=== PATIENT | male | born 1945 | race Caucasian/White ===

== ENCOUNTER 2016-09-10 12:27 | Inpatient (IN) | payer OTHER ==
[~2016-09-10] VITALS: Ht 167.6 cm; Wt 85.8 kg
[~2016-09-10 12:27] MED LIST: ALBUTEROL 3 ML3 ML IH; ALBUTEROL2.5 MG/3 M INH/SOL; CALCIUM ACETAT667 M2 PO; COMBIVENT RESPIM4 GM INH; CRESTOR 5MG5 MG PO; DALIRESP500 MC1 PO; EPOGEN4000 UNIT/ IV; GUAIFENESIN ER600 MG PO; IPRAT-ALBUT 0.5-3 ML INH; LABETALOL HCL200 M1 PO; LIDOCAINE-PRILO30 GM TOP; LOPRESSOR 25MG25 MG PO; MELATONIN3 M4 PO; METOPROLOL TART25 M1 PO; NEPHRO-VITE TA0.8 MG PO; OXYCODONE-ACET1 EAC1 PO; PANTOPRAZOLE SO40 MG PO; PREDNISONE10 M2 PO; PREDNISONE20 M1 PO; PREDNISONE5 M1 PO; PROAIR HFA8.5 GM INH; SPIRIVA18 MCG INH; SYMBICORT 16010.2 GM INH; TOPROL XL25 M1 PO; TUDORZA PRESS400 MCG; TUDORZA PRESS400 MCG INH; TYLENOL #31 TAB PO; VENTOLIN HFA18 GM INH
--- NOTE | 2016-09-10 12:38 | NUR ---
71 Y/O MALE C/O R SIDED CHEST PAIN, BILATERAL FLANK PAIN AND UPPER BACK PAIN SINCE SATURDAY. REPORTS SOB (BASELINE 2L, SAT 96%). PT REPORTS "NORMAL" APPETITE/PO INTAKE. HAD DIALYSIS THIS AM AND COMPLETED TREATMENT (DIALYSIS SHUNT TO L ARM, RESTRICTED BAND PLACED) EKG IN PROGRESS
--- NOTE | 2016-09-10 12:39 | NUR ---
PT STATES HE CALLED DR MALDONADO AND WAS TOLD TO COME TO ED
--- NOTE | 2016-09-10 13:05 | NUR ---
IV ACCESS ESTABLISHED, #20 RFA SST AND LAVENDAR TOP TUBES SENT TO LAB
[2016-09-10 13:11] LABS: ABSOLUTE BASOPHIL COUNT 0 /CUMM (0.0-0.2); ABSOLUTE EOSINOPHIL COUNT 0.2 /CUMM (0.0-0.7); ABSOLUTE GRANULOCYTE CT 6.5 /CUMM (1.4-6.5); ABSOLUTE LYMPH COUNT 0.7 /CUMM (1.2-3.4); ABSOLUTE MONOCYTE COUNT 0.6 /CUMM (0.10-0.60); BASOPHIL % 0.6 % (0.0-2.0); EOSINOPHIL % 2.2 % (0-5); GRANULOCYTE % 81.4 % (42.2-75.2); HEMATOCRIT 33.6 % (42-52); MEAN CORPUSCULAR HGB 29.4 PG (27.0-31.0); MEAN CORPUSCULAR HGB CONC 33.2 G/DL (33.0-37.0); MEAN CORPUSCULAR VOLUME 88.4 FL (80.0-94.0); MEAN PLATELET VOLUME 10.3 FL (7.4-10.4); PLATELET COUNT 133 /CUMM (130-400); RBC DISTRIBUTION WIDTH 14.8 % (11.5-14.5)
--- NOTE | 2016-09-10 13:12 | NUR ---
PT MEDICATED WITH MORPHINE 4MG IV
--- NOTE | 2016-09-10 13:22 | NUR ---
PT SITTING ON STRETCHER WITH FAMILY IN ATTENDANCE. PT REPORTS "PAIN IS BETTER" AFTER MORPHINE. PT REPORTS DIALYSIS THIS MORNING. PT HAS ACCESS IN LEFT UPPER ARM, POSITIVE FOR THRILL AND BRUITS. PT REPORTS HE IS ON O2 AT 2LPM VIA NC 24 HOURS/DAY.
--- NOTE | 2016-09-10 13:30 | ED CARDIAC/CP/PALPITATIONS ---
History of Present Illness General Chief Complaint: Chest Pain Stated Complaint: CHEST AND BACK PAIN, SOB Source: patient Exam Limitations: no limitations Allergies Coded Allergies: venom-honey bee (bee venom (honey bee)) (Severe, ANAPHYLAXIS 02/13/16) Penicillins (Intermediate, RASH 02/13/16) Reconcile Medications Albuterol Sulfate 2.5 MG/3 ML VIAL.NEB 1 Vial INH/ROSALINDA Q4P COPD (Reported) Albuterol Sulfate (Proair Hfa) 8.5 GM HFA.AER.AD 2 PUF INH PRN COPD (Reported ) Budesonide/Formoterol Fumarate (Symbicort 160-4.5 Mcg Inhaler) 10.2 GM HFA.AER.AD 2 PUF INH BID COPD Calcium Acetate (Phoslo) 667 MG CAPSULE 3 CAP PO WM KIDNEYS (Reported) Celecoxib (Celebrex) 100 MG CAPSULE 100 MG PO DAILY Anti Inflamatory Hydrocodone/Acetaminophen (Hydrocodon-Acetaminophen 5-325) 5 MG-325 MG TABLET 1 TAB PO DAILY PRN BACK PAIN Ipratropium/Albuterol Sulfate (Combivent Respimat Inhal [place]) 4 GM MIST.INHAL 1 PUFF INH 4 TIMES/DAY COPD (Reported) Lidocaine (Lidoderm) 5 % ADH..PATCH 1 PAT EXT 0600 Back Pain Metoprolol Succ XL (Toprol XL) 25 MG TAB 1.5 TAB PO DAILY atrial fibrillatoin Nephro-Vitamins (Nephro-Angie Tablet) 0.8 MG TABLET 1 TAB PO DAILY RENAL DX ( Reported) Pantoprazole Sodium 40 MG TABLET.DR 40 MG PO DAILY GERD (Reported) Roflumilast (Daliresp) 500 MCG TABLET 1 TAB PO DAILY COPD (Reported) Rosuvastatin Calcium (Crestor) 5 MG TABLET 5 MG PO DAILY HIGH CHOLESTROL ( Reported) Triage Note: 71 Y/O MALE C/O R SIDED CHEST PAIN, BILATERAL FLANK PAIN AND UPPER BACK PAIN SINCE SATURDAY. REPORTS SOB (BASELINE 2L, SAT 96%). PT REPORTS "NORMAL" APPETITE/PO INTAKE. HAD DIALYSIS THIS AM AND COMPLETED TREATMENT (DIALYSIS SHUNT TO L ARM, RESTRICTED BAND PLACED) EKG IN PROGRESS Triage Nurses Notes Reviewed? yes Onset: Abrupt Duration: day(s):, constant, continues in ED Timing: recent history Quality/Severity: moderate, severe Radiation: no radiation Activities at Onset: none HPI: 71-year-old male comes into emergency room with complaints of shortness of breath and chest pain. Pain is located all across his chest and into his back. Pain has been intermittent for the past 4-5 days. Sharp. Denies any fever chills cough. Denies any vomiting. Patient has extensive history of coronary disease. Nothing seems to make the symptoms better or worse. Denies any other associated symptoms. (SIS GIL) Vital Signs & Intake/Output Vital Signs & Intake/Output Vital Signs Date Time Temp Pulse Resp B/P Pulse O2 O2 Flow FiO2 Ox Delivery Rate 09/12 799 Nasal 2.0L Cannula 09/12 08 98.5 118 20 152/80 95 Nasal Cannula 09/12 0000 Nasal 2.0L Cannula 09/11 2356 98.0 91 20 130/66 95 Nasal Cannula 09/11 2113 126 09/11 1843 93 Room Air Room Air 09/11 1600 Nasal 2.0L Cannula 09/11 1559 98.1 126 20 160/100 97 Nasal 2.0L Cannula 09/11 1319 95 Nasal 2.0L Cannula 09/11 1311 Nasal 2.0L Cannula ED Intake and Output 09/12 0000 09/11 1200 Intake Total 1000 220 Output Total Balance 1000 220 Intake, IV 20 Intake, Oral 980 220 Past History Travel History Traveled to [place] past 21 day No Medical History Any Pertinent Medical History? see below for history Neurological: NONE EENT: NONE Cardiovascular: CAD, hypertension, stents, severe pulmonary hypertension Respiratory: asthma, COPD, 2L O2 DEPENDANT CPAP EACH NIGHT Gastrointestinal: NONE Hepatic: NONE, hepatic congestion, splenomegaly Renal: ESRD on HD, FISTULA ON L UPPER EXT Musculoskeletal: NONE Psychiatric: NONE Endocrine: NONE, diabetes Blood Disorders: myelodysplastic syndrome. Cancer(s): NONE TOY STUFFER/Reproductive: NONE History of MRSA: No History of VRE: No History of CDIFF: No Pneumonia Vaccine: 07/03/16 Influenza Vaccine: 07/03/16 Surgical History Surgical History: cholecystectomy, AV FISTULA LUE Psychosocial History Who do you live with Spouse Services at Home Oxygen What is your primary language Italian Tobacco Use: Quit >30 days ago Family History Family History, If Any: FATHER (CKD on HD, CAD, SC, DM). MOTHER (CKD on HD, CAD, SC, DM). FATHER (CKD on Hemodialysis, CAD, DM). MOTHER (CKD on Hemodialysis, CAD, SC). Hx Contributory? No (SIS GIL) Review of Systems Review of Systems Constitutional: Reports: no symptoms. EENTM: Reports: no symptoms. Respiratory: Reports: see HPI. Cardiovascular: Reports: see HPI. GI: Reports: no symptoms. Genitourinary: Reports: no symptoms. Musculoskeletal: Reports: no symptoms. Skin: Reports: no symptoms. Neurological/Psychological: Reports: no symptoms. Hematologic/Endocrine: Reports: no symptoms. Immunologic/Allergic: Reports: no symptoms. All Other Systems: Reviewed and Negative (SIS GIL) Physical Exam Physical Exam General Appearance: well developed/nourished, no apparent distress, alert Head: atraumatic, normal appearance Eyes: Bilateral: normal appearance, EOMI. Ears, Nose, Throat: normal pharynx, normal ENT inspection Neck: normal inspection Respiratory: normal breath sounds, no respiratory distress Cardiovascular: regular rate/rhythm, tachycardia Gastrointestinal: soft Back: normal inspection Extremities: normal inspection Neurologic/Psych: awake, alert, oriented x 3, normal gait Skin: intact, normal color Core Measures ACS in differential dx? No Severe Sepsis Present: No Septic Shock Present: No (SIS GIL) Progress Differential Diagnosis: AMI, aortic dissection, atrial fibrillation, cholecystitis, CHF/pulm edema, hyperkalemia, hypovolemia, hyperthyroid, hyperventilation, musculoskeletal pain, myocarditis, pancreatitis, pericarditis, pneumonia, pneumothorax, pulmonary embolism, PUD/GERD, PVCs/PACs, respiratory failure, rib fracture, sepsis, unstable angina, V-fib/V-Tach Diagnostic Imaging: Viewed by Me: Radiology Read. Discussed w/RAD: Radiology Read. Radiology Impression: SERVICE DATE: 09/10/16 EXAM TYPE: RAD - XRY- PORTABLE CHEST XRAY EXAMINATION: XR PORTABLE CHEST CLINICAL INFORMATION: Shortness of breath. COMPARISON: Chest x-ray 04/10/2016. TECHNIQUE: Portable view of the chest was obtained. FINDINGS: Symmetric lung inflation. No focal consolidation, pleural effusion, or pneumothorax. Cardiac silhouette size is normal. The aorta is again noted to be tortuous in its course. A left axillary vascular stent is redemonstrated. There are no acute osseous findings. IMPRESSION: No acute pulmonary process. Initial ED EKG: normal intervals, normal p-waves, normal sinus rhythm, rate (120 ), nonspecific ST T wave chg (SIS GIL) Plan of Care: Orders Procedure Date/time Status Hemo-Dialysis 09/12 0812 Active BASIC ELECTROLYTES PLUS BUN&CR 09/12 0600 Complete Anticipated Discharge 09/12 UNK Active Weight 09/11 2222 Active Vital Signs 09/11 175 Active Teach/Educate 09/11 1749 Active Nutritional Intake, Monitor 09/11 1749 Active Isolation 09/11 175 Active Intake & Output 09/11 175 Active Patient Care Conference 09/11 175 Active Activity/Ambulation 09/11 1749 Active RT: Evaluation 09/11 1311 Active WESTERGREN SED RATE 09/11 1203 Complete Change service to 09/11 09 Active Change service to 09/11 0843 Active AEROSOL CHG 09/11 UNK Complete OXYGEN 09/11 UNK Complete OXYGEN DAILY CHARGE 09/11 UNK Complete THERAPIST ORDERS 09/11 UNK Complete OXYGEN SETUP (GEN) 09/11 UNK Complete Admit to inpatient 09/11 UNK Active Lab Add-on Test 09/11 UNK Active MISSING MEDICATION FORM 09/11 UNK Active PHYSICIAN CONSULT 09/11 UNK Active OXYGEN SETUP CHG 09/10 UNK Complete OXYGEN 09/10 UNK Complete OXYGEN TRANSPORT 09/10 UNK Complete Current Medications Sig/Zoe Start time Last Medication Dose Stop Time Status Admin Ipratropium [place] 2.5 ML FOUR TIMES A DAY 09/11 1800 AC (Atrovent) Albuterol Sulfate 3 ML EVERY 4 HRS/AWAKE 09/11 1600 AC (Proventil) Roflumilast 500 MCG DAILY 09/11 1000 CAN (DALIRESP) Polyethylene Glycol 17 GM AT BEDTIME 09/10 2200 AC (Miralax) Albuterol Sulfate 2 PUF DAILY PRN 09/10 1900 AC (Ventolin) Acetaminophen 650 MG Q6P PRN 09/10 1745 AC (Tylenol) Diphenhydramine HCl 25 MG Q6P PRN 09/10 1745 AC (Benadryl) Prochlorperazine 10 MG Q6P PRN 09/10 1745 AC (Compazine) Laboratory Tests 09/12/16 0645: Anion Gap 19 H, Estimated GFR 7 L, BUN/Creatinine Ratio 9.1 09/11/16 1340: ESR Westergren 60 H Comments: 09/10/2016 4:46:36 PM patient's case discussed with Dr. Recio who recommends hospitalization given the patient's history of coronary artery disease and stent placement. I have updated Rafa on this and he is currently pain free. He has been treated with IV morphine for pain. If his pain should return the patient should be placed on heparin. (LIVAN MONTES,LUISA Freeman) Departure Departure Condition: Stable Referrals: SARITA MONTES,CYNDI Barron (PCP/Family) Departure Forms: Customer Survey General Discharge Information Prescriptions: Current Visit Scripts Celecoxib (Celebrex) 100 MG PO DAILY #10 Lidocaine (Lidoderm) 1 PAT EXT 0600 #5 Hydrocodone/Acetaminophen (Hydrocodon-Acetaminophen 5-325) 1 TAB PO DAILY PRN BACK PAIN #5 (SIS GIL) Departure Disposition: STILL A PATIENT Clinical Impression Primary Impression: Chest pain Qualifiers: Chest pain type: unspecified Qualified Code: R07.9 - Chest pain, unspecified Secondary Impressions: Chronic renal failure Qualifiers: Chronic kidney disease stage: stage 5 Qualified Code: N18.5 - Chronic kidney disease, stage 5 Observation Note Spoke With: LASHON MONTES,[facility] Physician Advisor Notified: MELA MONTES,LOS Barron Place Patient In: Non-ED OBS Care Area Rationale for Observation: My rational for observation is as follows patient has known history of coronary artery disease status post coronary stent as well as renal failure on dialysis. He is at high risk of acute coronary syndrome/SC. He is also at risk of ischemic associated cardiac dysrhythmias. I feel he now requires continuous cardiac monitoring and serial troponin determinations. Cardiology consultation should also be obtained for the possibility of cardiac catheterization and/or stress testing. Given this I do not feel he is a good candidate for outpatient management at this time. PA/OTR OWNER OPERATOR Co-Sign Statement Statement: ED Attending supervision documentation- [X] I saw and evaluated the patient. I have also reviewed all the pertinent lab results and diagnostic results. I agree with the findings and the plan of care as documented in the PA's/OTR OWNER OPERATOR's documentation. [] I have reviewed the ED Record and agree with the PA's/OTR OWNER OPERATOR's documentation. [] Additions or exceptions (if any) to the PAs/OTR OWNER OPERATOR's note and plan are summarized below: [] (LUISA LICONA MD) Critical Care Note Critical Care Note Critical Care Time: non-applicable (SIS GIL) Critical Care Note Critical Care Time: 30-74 min (LIVAN MONTES,LUISA Freeman)
--- NOTE | 2016-09-10 13:34 | RADIOLOGY REPORT ---
EXAMINATION: XR PORTABLE CHEST CLINICAL INFORMATION: Shortness of breath. COMPARISON: Chest x-ray 04/10/2016. TECHNIQUE: Portable view of the chest was obtained. FINDINGS: Symmetric lung inflation. No focal consolidation, pleural effusion, or pneumothorax. Cardiac silhouette size is normal. The aorta is again noted to be tortuous in its course. A left axillary vascular stent is redemonstrated. There are no acute osseous findings. IMPRESSION: No acute pulmonary process.
--- NOTE | 2016-09-10 14:58 | NUR ---
PT RESTING COMFORTABLY ON STRETCHER WITH FAMILY AT BEDSIDE.
--- NOTE | 2016-09-10 16:04 | NUR ---
PT MEDICATED WITH MORPHINE 4MG IV
--- NOTE | 2016-09-10 16:55 | NUR ---
ORDERED PT RENAL DIET TRAY
--- NOTE | 2016-09-10 17:29 | History & Physical ---
SHAWN MONTES,[facility] 09/10/16 6909: General Information and HPI MD Statement: I have seen and personally examined JAMES NELSON and documented this H&P. The patient is a 71 year old M who presented with a patient stated chief complaint of chest pain. . Source of Information: patient, family, old records Exam Limitations: no limitations History of Present Illness: 71 yo M with pmh of COPD, LLUVIA requiring home oxygen, CAD s/p stent placement, HTN, pul HTN, ESRD getting dialysis every Mon/Sat/Sat, presented to the emergency department on 09/10/2016 after experiencing a prolonged duration of chest pain. Patient states that that his pain originally began on 09/04/2016. Pain was initially located on the right-hand side of the patient's chest, under the patient's breast and radiated towards the right back. Over the course of the week this pain then progressed the left-hand side again under the breast and this time radiated the back and was diffusely present all over his back. Over the last few days the patient has continued to experience more intense pain. Approximately 2 days ago the patient had a drastic escalation in his pain on the left which was rated at a 9 out of 10 in severity. It was described as a dull and constant pain and this duration of intense pain lasted approximately 2 minutes. Patient states the pain in his chest and back radiates up to his head. The patient states that he has had to take Advil often increasing his dose for symptomatic relief. This morning the patient was scheduled for dialysis felt that perhaps his chest pain might be related to pending dialysis. He went to dialysis and after dialysis having not had resolution to his symptoms he decided to come to the emergency department. The patient denies any fever, chills, nausea, vomiting. He does however report orthopnea and palpitations as well as diaphoresis. The patient also reports dyspnea and dyspnea on exertion. The patient's buttonholer is Arvin Shields MD The patient's shoe ironer is Dr. Recio. The patient's executive office manager is Dr. Belle Allergies/Medications Allergies: Coded Allergies: venom-honey bee (bee venom (honey bee)) (Severe, ANAPHYLAXIS 02/13/16) Penicillins (Intermediate, RASH 02/13/16) Home Med list Albuterol Sulfate 2.5 MG/3 ML VIAL.NEB 1 Vial INH/ROSALINDA Q4P COPD (Reported) Albuterol Sulfate (Proair Hfa) 8.5 GM HFA.AER.AD 2 PUF INH PRN COPD (Reported ) Budesonide/Formoterol Fumarate (Symbicort 160-4.5 Mcg Inhaler) 10.2 GM HFA.AER.AD 2 PUF INH BID COPD Calcium Acetate (Phoslo) 667 MG CAPSULE 3 CAP PO WM KIDNEYS (Reported) Ipratropium/Albuterol Sulfate (Combivent Respimat Inhal [place]) 4 GM MIST.INHAL 1 PUFF INH 4 TIMES/DAY COPD (Reported) Metoprolol Succ XL (Toprol XL) 25 MG TAB 1.5 TAB PO DAILY atrial fibrillatoin Nephro-Vitamins (Nephro-Angie Tablet) 0.8 MG TABLET 1 TAB PO DAILY RENAL DX ( Reported) Pantoprazole Sodium 40 MG TABLET.DR 40 MG PO DAILY GERD (Reported) Roflumilast (Daliresp) 500 MCG TABLET 1 TAB PO DAILY COPD (Reported) Rosuvastatin Calcium (Crestor) 5 MG TABLET 5 MG PO DAILY HIGH CHOLESTROL ( Reported) Compliance With Home Meds: GOOD Past History Travel History Traveled to [place] past 21 day No Medical History Neurological: NONE EENT: NONE Cardiovascular: CAD, hypertension, stents, severe pulmonary hypertension Respiratory: asthma, COPD, 2L O2 DEPENDANT CPAP EACH NIGHT Gastrointestinal: NONE Hepatic: NONE, hepatic congestion, splenomegaly Renal: ESRD on HD, FISTULA ON L UPPER EXT Musculoskeletal: NONE Psychiatric: NONE Endocrine: NONE, diabetes Blood Disorders: myelodysplastic syndrome. Cancer(s): NONE BUSINESS MANAGEMENT MANAGER/Reproductive: NONE History of MRSA: No History of VRE: No History of CDIFF: No Pneumonia Vaccine: 07/03/16 Influenza Vaccine: 07/03/16 Surgical History Surgical History: cholecystectomy, AV FISTULA LUE Past Family/Social History Family History Relations & Conditions if any FATHER (CKD on HD, CAD, ME, DM). MOTHER (CKD on HD, CAD, ME, DM). FATHER (CKD on Hemodialysis, CAD, DM). MOTHER (CKD on Hemodialysis, CAD, ME). Psychosocial History Where do you live? Home Who Do You Live With? spouse Services at Home: Oxygen Primary Language: Thai Functional Ability ADLs Independent: eating, toileting. Needs Assist: bathing. Ambulation: independent Review of Systems Review of Systems Constitutional: Reports: diaphoresis, weakness. Denies: chills, fever, malaise. Cardiovascular: Reports: chest pain, orthopena, palpitations. Denies: edema, syncope. Respiratory: Reports: orthopnea, short of breath. Denies: cough, hemoptysis. GI: Denies: abdominal pain, bloating, constipation, diarrhea, distention, bowel incontinence. Genitourinary: Denies: discharge, dysuria, frequency, hematuria. Musculoskeletal: Reports: back pain. Skin: Denies: change in skin color, change in hair/nails, dryness. Exam & Diagnostic Data Last 24 Hrs of Vital Signs/I&O Vital Signs Date Time Temp Pulse Resp B/P Pulse O2 O2 Flow FiO2 Ox Delivery Rate 09/10 1702 97.0 112 16 145/84 98 Nasal 2.0L Cannula 09/10 1429 106 18 149/78 99 Nasal 2.0L Cannula 09/10 1326 96 Nasal 2.0L Cannula 09/10 1238 95.0 121 20 139/91 98 Nasal 2.0L Cannula Intake & Output 09/10 1600 09/10 0800 09/10 0000 Intake Total Output Total Balance Patient 87.09 kg Weight Physical Exam General Appearance Alert, Oriented X3, Cooperative Skin No Rashes, No Breakdown Cardiovascular Normal S1, Normal S2 Lungs Clear to Auscultation Abdomen Normal Bowel Sounds, Soft, No Tenderness, No Hepatospenomegaly Neurological Normal Speech, Strength at 5/5 X4 Ext, Sensation Intact, Cranial Nerves 3-12 NL Extremities No Cyanosis, No Edema, Normal Pulses, No Tenderness/Swelling Last 24 Hrs of Labs/Jesus: Laboratory Tests 09/10/16 1940: Troponin I 0.08 09/10/16 1300: Anion Gap 19 H, Estimated GFR 13 L, BUN/Creatinine Ratio 7.3, Glucose 105 H, Calcium 9.1, Total Bilirubin 0.6, AST 21, ALT 28, Alkaline Phosphatase 60, Troponin I 0.08, [id number] Pept 29659 H, Total Protein 6.9, Albumin 4.2 , Globulin 2.7, Albumin/Globulin Ratio 1.6, CBC w Diff NO MAN DIFF REQ, RBC 3.80 L, MCV 88.4, MCH 29.4, RDW 14.8 H, MPV 10.3, Gran % 81.4 H, Lymphocytes % 8.6 L, Monocytes % 7.2, Eosinophils % 2.2, Basophils % 0.6, Absolute Granulocytes 6.5, Absolute Lymphocytes 0.7 L, Absolute Monocytes 0.6, Absolute Eosinophils 0.2, Absolute Basophils 0, PUBS MCHC 33.2 Diagnostic Data CXR Results SERVICE DATE: 09/10/16 EXAM TYPE: RAD - XRY-PORTABLE CHEST XRAY EXAMINATION: XR PORTABLE CHEST CLINICAL INFORMATION: Shortness of breath. COMPARISON: Chest x-ray 04/10/2016. TECHNIQUE: Portable view of the chest was obtained. FINDINGS: Symmetric lung inflation. No focal consolidation, pleural effusion, or pneumothorax. Cardiac silhouette size is normal. The aorta is again noted to be tortuous in its course. A left axillary vascular stent is redemonstrated. There are no acute osseous findings. IMPRESSION: No acute pulmonary process. DICTATED BY: LUISA MUNIZ MD Assessment/Plan Assessment: This is a 71-year-old gentleman with past medical history of COPD and ESRD on hemodialysis 3 times a week who was admitted to [facility] for worsening chest pain. #Chest pain, rule out acute coronary syndrome versus musculoskeletal Admit patient to telemetry service Serial EKGs and troponins. Initial troponin 0.08. Cardiology consult in a.m. Consider echo cardiogram in a.m. Should patient become hemodynamically compromised consider ruling out aortic dissection. X-ray of ribs bilaterally rule out rib fracture. Patient denies any history of trauma. Other differentials may include pneumonia, costochondritis, herpes zoster (although no evidence of rash). Vicodin for severe pain. Lidocaine Patch for additional relief. PT consult in a.m. #Acute on chronic hypercarbic respiratory failure 2/2 COPD exacerbation. Patient does have history of COPD and is on home oxygen 2 L. Chest x-ray to rule out pneumonia IV Solu-Medrol and IV azithromycin for anti-inflammatory properties. Albuterol, Symbicort and ipratropium. Considered ABG in a.m. to rule out obstructive sleep apnea. Patient sees Dr. Belle as outpatient consider consultation in a.m. TRC nebulization treatments Incentive spirometer Sputum cultures LRC #End-stage renal disease Patient will need to continue Hemodialysis next Saturday consider nephrology consult in a.m. BEP in am. Monitor creatinine daily. Creatinine on admission is 4.5. Artificially low due to hemodialysis today. #Hypertension Continue Antihypertensives #Constipation Dulcolax and senna when necessary. Patient reports that opiates can periodically caused constipation. #Diet Renal dialysis #DVT prophylaxis Heparin #Code Full Code As Ranked By This Provider Problem List: 1. Chronic renal failure Qualifiers Chronic kidney disease stage: stage 5 Qualified Code: N18.5 - Chronic kidney disease, stage 5 2. COPD (chronic obstructive pulmonary disease) 3. COPD exacerbation 4. ESRD (end stage renal disease) 5. Abdominal pain 6. LLUVIA (obstructive sleep apnea) 7. Chest pain Qualifiers Chest pain type: unspecified Qualified Code: R07.9 - Chest pain, unspecified 8. chest wall dysfunction Core Measures/Miscellaneous Acute Coronary Syndrome ACS Diagnosis: No Cerebrovascular Accident CVA/TIA Diagnosis: No Congestive Heart Failure CHF Diagnosis: No Venous Thromboembolism VTE Risk Factors: Age > 40 VTE Prophylaxis Ordered Inpt: Pharm- Heparin No Mech VTE prophylaxis d/t: No contraindications No VTE Pharm Prophylaxis d/t: No contraindications VTE Diagnosis: No VTE Type: NONE VTE Confirmed by (Test): NONE Severe Sepsis Severe Sepsis Present: No Septic Shock Septic Shock Present: No Miscellaneous Documentation Attending Case Discussed With: MARTIN OATES MD Primary Care Physician: CYNDI STEIN MD Patient sees these Specialists Dr Recio Level of Patient Care: Telemetry MARTIN OATES MD 09/10/16 2210: Attending MD Review Statement Attending Statement Attending Statement: examined this patient, discuss w/resident/PA/ICE MAKER, agreed w/resident/PA/ICE MAKER, discussed with family, reviewed EMR data (avail) Attending Assessment/Plan: Pt seen/examind in ED. Case dw with the admitting residents. Pt is well known to me. In summary this is a 71 yo M with pmh of COPD, LLUVIA requiring home oxygen, CAD s/p stent placement, HTN, pul HTN, ESRD getting dialysis every Mon/Wed/Fri, presented to ED for chest for one week. Pain started as dull burnign pain below left nipple and then gradually moved to right side below the nipple. Pain radiated to back on right side. There is some pleuritic component to the pain. Pt had no fever, chills, n/v or Diarrhea. Has gained slight weigth. Has been compliant with his dialysis and there was not fall or trauma to chest. Exam shows stable VS. chest is clear, abd is soft NT. There is not chest tenderness. labs show mild anemia and elevated Cr and BNP. CXR is negative for edema or infiltrate. EKG is unchanged from prior. A/P: - likley musculoskeletal pain, r/o osteoarthritis of spine or compression fx - rule out ME , this is unlikley and his first Trop is negative - ESRD - CAD and sten - sleep apnea/copd on home O2 Plan - observe on tele, rule out protocol - check T spine and rib xrays - local ice pack, lidocaine, and voltaren gel massage - start Lyrica - tyelenol for mild pain, ultram for moderate and diladid for sever pain - consult nephrology for HD on Sat - Pulm consult Dr. Belle - Cardio consult Dr. Recio. pt likely can be discharged if he rules out and his pain is well controlled.
--- NOTE | 2016-09-10 17:32 | NUR ---
PT CALM AND COOPERATIVE, SITTING ON STRETCHER. PT'S MEAL HAS ARRIVED.
--- NOTE | 2016-09-10 19:17 | PN- Student ---
KATLIN SMITH 09/10/16 1852: Subjective Subjective: CC: "I have had chest + upper back pain since Saturday." HPI: Pt. experiences R. sided chest pain, with bilateral flank pain. The pain apparently also affects his upper back. The pt stated that it was intermittent ( R) chest pain that radiates to the (R) Upper Back and Flank. He was watching TV when it first occured. He states the pain worsens with movement. Pt also stated that he experienced similar chest pain and back pain on the (L) side yesterday. The pain disturbs his sleep and at times is sharp in character. 6-7-8/10 in intensity. Aspirin does not help the symptoms. This morning he had dialysis. The patient is feeling moderate relief at the time of exam because he stated he was given Morphine. PMHx: * CVS: CAD, HTN, Stents, Severe Pulmonary HTN. * Respiratory: Asthma, COPD on 2L O2 dep. CPAP used every night. 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 U. Arm. * Endocrine: Diabetes * Blood Disorder: MDS PSHx: * Cholestectomy; * AV. Fistula LUE; * L. Subclavian Vascular Stent; FHx: * Father: CKD on HD, CAD, PA, DM * Mother: CKD on HD, CAD, PA, DM SHx: * Cigs: 25 pk year history (stopped ~20 yrs ago) * EtOH: Special Occasion (homemade wine) * Illicits: Denies Use * Occupation: Retired - [employer] Medication: Current Medications Sig/Zoe Start time Last Medication Dose Stop Time Status Admin Acetaminophen 650 MG Q6P PRN 09/10 1745 AC (Tylenol) Acetaminophen/ 1 TAB Q6P PRN 09/10 1745 AC Hydrocodone Bitart (Vicodin) Albuterol Sulfate 2 PUF DAILY PRN 09/10 1900 UNVr (Ventolin) Atorvastatin Calcium 20 MG 1700 09/11 1700 UNVr (Lipitor) Budesonide/ 2 PUF BID 09/10 2200 UNVr Formoterol Fumarate (Symbicort) Calcium Acetate 2,001 MG WM 09/11 0800 UNVr (PhosLo) Diphenhydramine HCl 25 MG Q6P PRN 09/10 1745 AC (Benadryl) Docusate Sodium 100 MG BID 09/10 2199 AC (Colace) Heparin Sodium 5,000 UNIT Q8 09/10 2199 AC (Porcine) Metoprolol Succinate 37.5 MG DAILY 09/11 999 UNVr (Toprol XL) Morphine Sulfate 2 MG Q4P PRN 09/10 1744 AC (Morphine) Multivitamins 1 TAB DAILY 09/11 999 UNVr (Nephrocaps) Non-Formulary 0 SEE ADMIN CRITERIA 09/10 1899 UNVr Medication (NON FORMULARY) Non-Formulary 0 SEE ADMIN CRITERIA 09/10 184 UNVr Medication (NON FORMULARY) Omeprazole 40 MG DAILY AC 09/11 07 UNVr (Prilosec) Polyethylene Glycol 17 GM AT BEDTIME 09/10 2199 AC (Miralax) Prochlorperazine 10 MG Q6P PRN 09/10 1744 AC (Compazine) Allergies: * Penicillin * Bee-Venom ROS: * General: Intermittant Sweating (4-5x) (YES); Fever or chills (NO). Fatigue ( YES) * Eyes: Visual Changes (YES); Pain (N); Readness (N) * ENT: Headaches (YES); hoarseness (N); sore throat (N); epistaxis (N); sinus symptoms (N); hearing loss (N); tinnitus (N) * CVS: Chest Pain (YES); Edema (NO); PND (N); Orthopnea (YES); Palpitations (YES ); Claudication (YES) (burning pain) * Respiratory: Cough (NO); SOB (YES); Wheezing (YES); Hypersomnolence (YES) * GI: Abdominal Pain (NO); Stool changes (NO); Nausea/Vomiting (NO); Diarrhea ( NO); Heartburn (NO); Blood in Stool (NO) * : Dysuria (NO); Frequency (NO); Hematuria (N); Discharge (N); Menstrual Problems (NA); * MSK: Arthralgias (Y); Arthritis (N); Joint Swelling (N); Myalgias (Y); Backpain (YES) * Heme/Lymph: Bleeding (N); Burising (Y) (Left Upper Extremity); Clotting (N); Transfusions (N); Lymph Node Swelling (N); * Endo: Polyuria (N); Polydypsia (N); Polyphagia (N); Heat/Cold Intolerance (N); * Derm: Rash (N); Pruritis (N) * Neuro: Weakness (N); Seizures N(); Paresthesias (Y) (Hands); Tremor (N); Syncope (Y); * Psych: Anxiety (Y); Depression (N); Hallucinations (N); Claustrophobia (YES) * All/Imm: Hayfever (N); Bee Sting Allergy (YES - Anaphylaxis); Penicillin (YES - Rash) Objective Objective: Vital Signs Date Time Temp Pulse Resp B/P Pulse O2 O2 Flow FiO2 Ox Delivery Rate 09/10 1702 97.0 112 16 145/84 98 Nasal 2.0L Cannula 09/10 1429 106 18 149/78 99 Nasal 2.0L Cannula 09/10 1326 96 Nasal 2.0L Cannula 09/10 1238 95.0 121 20 139/91 98 Nasal 2.0L Cannula * Pulse Quality: * Weight: 87.09 kg * Height: 165.1 cm Physical Exam General Appearance: * Dress: (X) nl hygeine * Affect: (X) nl affect, not flat, blunted, or expansive * MSE: Oriented in Time, Person, Place Eyes General: (X) nl conjuctiva & lids Pupils: (X) equal, round, and reactive Fundus: () nl discs & vessels (not examined) Vision: (X) acuity & gross ferrer intact Abnormals: ENT: External: (X) no scars, lesions, masses. Otoscopic: () nl canals, typanic membranes (not examined) Hearing: (X) nl to finger rub Oropharynx: (X) nl teeth, tounge, palate, pharynx. Abnormals: Neck: External: (X) no tracheal deviation Palpation: (X) no masses or crepitus Thyroid: (X) no 'megaly or tenderness. Abnormals: GI: Palpation: (X) no massess or tenderness (X) no hep/splenomegaly Auscultation: (X) nl bowel sounds Percussion: () no shifting dullness (not performed) Anus/rectum : () no abnormalities or masses (not examined) () heme negative stool (not examined) Abnormals: Respiratory: Effort: () nl without retractions (see abnormals) Percussion: () no dullness or hyperresonance (not performed) Palpation: (X) no fremitus Auscultation: () CTAP w/o W, R, or R Abnormals: -Pt is on 2 L Nasal Cannula CV: Palpation: (X) PMI nondisplaced Auscultation: (X) no murmur, gallop, or rub Carotids: (X) nl intensity w/o bruit JVD: (X) no jugular distension Pulses: () 2+/= femoral & pedal pulses Edema: (X) no pedal edema Abnormals: +1 Pedal Pulses Neuro: Orientation: (X) A&O to person, place, time CN: (X) CN II-XII intact. Sensory: (X) nl sensation throughout Reflexes: () 2++ and symmetrical throughout. (not examined) Abnormals: Skin: () no rashes, lesions, ulcers (X) nl turgor Abnormals: - Bruising on (Right Upper Extremity) - Dry skin and pruritis on the lower back (bilaterally) Chest/Breast: (X) nl inspection & palpation Lymph Nodes: (X) no axillary, inguinal, cervical, or submandibular LAD. : (not examined) () nl external genitalia () nl vaginal tone, mucosa [if applicable] () no cervical motion tenderness [if applicable] () nl penis & scrotal contents [if applicable] () nl prostate size & texture [if applicable] Abnormals: Psych: (X) nl cognition () MMSE (X) nl mood and affect Abnormals: MSK: Inspection ROM Strength Tone (X if normal) Abnormals Upper Extremity Lower Extremity Gait: (X) nl gait and station Results Results: Laboratory Tests 09/12/16 1115: 09/12/16 0758: Anion Gap 20 H, Estimated GFR 6 L, BUN/Creatinine Ratio 8.9, Calcium 9.1, Phosphorus 8.0 H, Magnesium 1.9, Albumin 3.7, CBC w Diff NO MAN DIFF REQ, RBC 3.50 L, MCV 89.7, MCH 29.4, RDW 14.5, MPV 11.9 H, Gran % 77.2 H, Lymphocytes % 11.3 L, Monocytes % 7.9, Eosinophils % 3.2, Basophils % 0.4, Absolute Granulocytes 5.6, Absolute Lymphocytes 0.8 L, Absolute Monocytes 0.6, Absolute Eosinophils 0.2, Absolute Basophils 0, PUBS MCHC 32.8 L, Hep Bs Antigen NONREACTIVE, Hep Bs Antibody NONREACTIVE 09/12/16 0645: Anion Gap 19 H, Estimated GFR 7 L, BUN/Creatinine Ratio 9.1 09/11/16 1340: ESR Westergren 60 H 09/11/16 0643: Anion Gap 16, Estimated GFR 8 L, BUN/Creatinine Ratio 7.6, Magnesium 1.9 09/10/16 1940: Troponin I 0.08 09/10/16 1300: Anion Gap 19 H, Estimated GFR 13 L, BUN/Creatinine Ratio 7.3, Glucose 105 H, Calcium 9.1, Total Bilirubin 0.6, AST 21, ALT 28, Alkaline Phosphatase 60, Troponin I 0.08, Hri-X-Mrjqjfgjdhe Pept 38245 H, Total Protein 6.9, Albumin 4.2 , Globulin 2.7, Albumin/Globulin Ratio 1.6, CBC w Diff NO MAN DIFF REQ, RBC 3.80 L, MCV 88.4, MCH 29.4, RDW 14.8 H, MPV 10.3, Gran % 81.4 H, Lymphocytes % 8.6 L, Monocytes % 7.2, Eosinophils % 2.2, Basophils % 0.6, Absolute Granulocytes 6.5, Absolute Lymphocytes 0.7 L, Absolute Monocytes 0.6, Absolute Eosinophils 0.2, Absolute Basophils 0, PUBS MCHC 33.2 Assessment/Plan Assessment: Mr. Rodríguez is a 71 y/o male who arrived to the ED with (R) chest pain and bilateral flank pain. Reported sx include upper thoracic back pain and one episode of (L) chest pain. He also complains of pruritis on his lower pack which has exacerbated the past few days. Likely MSK Ribs/Chest Wall Syndrome (based on description of clinical sx and subjective data stated by the patient, negative troponins, and atypical presentation, however there appears to be no point tenderness) vs. rib fracture (r/o - rib xray) vs. Pericarditis (r/o based on negative friction rub, radiographic imaging of chest) vs. Myocardial Infarction (r/o - unlikely due to negative troponins) Problem List: * 1) MSK Chest Wall Syndromes * 2) Renal Disease * 3) Myocardial Infarction * 4) Sleep Apnea * 5) Coronary Artery Disease/Stents Plan: * Check XRay of the thoracolumbar spine and ribs. * Chest XRay * Echocardiogram * Redo EKG * Monitor Troponin levels; Check WBC, ESR, and serum CRP. * For pain: if mild - tylenol; moderate pain - diclofenac; severe pain - hydromorphone * Request Nephro consult * Request Pulm consult * Request Cardio consult BRUCE HUANG MD 09/13/16 1129: Attending MD Review Statement Attending Sign Off Attending Cosign Statement: I have: examined this patient, reviewed al EMR data, discussd w/resident/PA/ MULTICUT LINE OPERATOR, amended to note. Other Findings: Agree with plan of care as outlined.
--- NOTE | 2016-09-10 19:47 | NUR ---
SST SENT TO LAB
--- NOTE | 2016-09-10 20:13 | RADIOLOGY REPORT ---
EXAMINATION: XR RIBS, LEFT CLINICAL INFORMATION: Chest wall pain. COMPARISON: None TECHNIQUE: 3 views of the left ribs. FINDINGS: No displaced left rib fracture or focal bone lesion. Left lung clear. No left pleural effusion or pneumothorax on the left. Vascular stents over the left shoulder and left upper arm. IMPRESSION: No displaced left rib fracture.
--- NOTE | 2016-09-10 20:16 | RADIOLOGY REPORT ---
EXAMINATION: XR THORACOLUMBAR SPINE CLINICAL INFORMATION: Chest wall pain. COMPARISON: CT of the chest 06/11/2016 TECHNIQUE: AP. Lateral. FINDINGS: The vertebrae have normal height and alignment. No fracture bone or destruction. Mild degenerative lipping at the anterior endplates of the thoracic vertebrae. Compared to prior study no change. A biliary stent is partially visualized in the right upper quadrant of the abdomen. IMPRESSION: No acute abnormality. Mild degenerative change of the dorsal spine.
--- NOTE | 2016-09-10 21:17 | NUR ---
BED ASSIGNMENT [id number]
--- NOTE | 2016-09-10 21:39 | NUR ---
PT MEDICATED DIRECTED WITH 2 MG MORPHINE IV FOR 7/10 RIGHT LATERAL CHEST PAIN
--- NOTE | 2016-09-10 22:06 | NUR ---
PT ADMITTED TO ROOM # 179-2. ORAL REPORT GIVEN TO YVON MARTINES ALL V.S.S. PT READY FOR TRANSFER
[2016-09-10 23:07] VITALS: BP 144/76
--- NOTE | 2016-09-10 23:16 | RADIOLOGY REPORT ---
EXAMINATION: XR RIBS, RIGHT CLINICAL INFORMATION: Atypical chest wall pain. Evaluate for fracture. COMPARISON: Left rib radiographs and chest radiograph from earlier today. CT from 06/11/2016. TECHNIQUE: 3 views of the right ribs were obtained. Frontal view of the chest. FINDINGS: The lungs are well expanded. No dense consolidation, edema, or effusion. No pneumothorax. The cardiomediastinal silhouette is unchanged, with a calcified and tortuous aorta. Left subclavian vascular stent noted. Targeted right rib radiographs demonstrate no acute fracture or cortical disruption. Alignment is anatomic. IMPRESSION: No acute pulmonary findings. No suspicious right rib abnormality.
--- NOTE | 2016-09-11 01:10 | NUR ---
ARRIVED TO OFFER PT BIPAP FOR USE HERE, PT STATED "I'M FINE IT'S LATE NOW,I WON'T WEAR IT TONIGHT ANYMORE." PT DENIES ANY DYSNEA, PT STATES " I DON'T LIKE THE BIPAPS HERE, IF I STAY TOMORROW, I WILL ASK MY FAMILY TO BRING IN MINE" THIS RT AND BOBBI SANZ ALSO @ BEDSIDE, ENCOURAGED PT TO RECONSIDER, HE CONTINUES TO WISH TO REMIAN OFF BIPAP TONIGHT, WILL MONITOR STATUS OVERNIGHT.
--- NOTE | 2016-09-11 06:40 | PN- Housestaff ---
SHAWN MONTES,[facility] 09/11/16 0639: Subjective Follow-up For: Rule out ACS COPD ESRD Tele-Events Since Last Visit: Sinus Tachy PAC PVC 3 beat 90's to 108 Subjective: Mr Rodríguez was seen and examined this morning. Resting comfortably in bed. Patient states he did not sleep well. Patient states he continued to experience chest pain. Pain is located on the right side of the chest radiating to the back. Pain is rated a 7 out of 10 severity. Patient states that pain becomes worse when he puts weight on it. Patient denies any fever, chills, nausea, vomiting. Patient denies any nausea and or left arm numbness tingling or diaphoresis. Review of Systems Constitutional: Reports: see HPI. Denies: chills, diaphoresis, fever. Objective Last 24 Hrs of Vital Signs/I&O Vital Signs Date Time Temp Pulse Resp B/P Pulse O2 O2 Flow FiO2 Ox Delivery Rate 09/11 1600 Nasal 2.0L Cannula 09/11 1559 98.1 126 20 160/100 97 Nasal 2.0L Cannula 09/11 1319 95 Nasal 2.0L Cannula 09/11 1311 Nasal 2.0L Cannula 09/11 0800 Nasal 2.0L Cannula 09/11 0800 97.6 109 20 150/78 95 Nasal 1.5L Cannula 09/11 0100 100 140/72 09/11 0000 94 Nasal 2.0L Cannula 09/10 2307 97.5 113 18 144/76 96 Nasal 1.5L Cannula Intake & Output 09/11 1600 09/11 0800 09/11 0000 Intake Total 500 220 300 Output Total Balance 500 220 300 Intake, Oral 500 220 300 Patient 88.139 kg Weight Physical Exam General Appearance: Alert, Oriented X3, Cooperative Lymphatic: Axillary nl Cardiovascular: Regular Rate, Normal S1, Normal S2, No Murmurs Lungs: Clear to Auscultation Abdomen: Normal Bowel Sounds, Soft, No Tenderness Neurological: Normal Gait, Normal Speech Extremities: No Edema Current Medications: Current Medications Sig/Zoe Start time Last Medication Dose Route Stop Time Status Admin Acetaminophen 650 MG Q6P PRN 09/10 1745 AC PO Acetaminophen/ 1 TAB ONCE ONE 09/11 1600 DC 09/11 Hydrocodone Bitart PO 09/11 1601 1635 Acetaminophen/ 1 TAB Q6P PRN 09/10 1745 AC 09/11 Hydrocodone Bitart PO 1116 Albuterol Sulfate 3 ML EVERY 4 HRS/AWAKE 09/11 1600 AC INH Albuterol Sulfate 1 PUF FOUR TIMES A DAY 09/10 1900 CAN INH Albuterol Sulfate 2 PUF DAILY PRN 09/10 1900 AC INH Atorvastatin Calcium 20 MG 1700 09/11 1700 AC 09/11 PO 1635 Budesonide/ 2 PUF BID 09/10 2200 AC 09/11 Formoterol Fumarate INH 0926 Calcium Acetate 2,001 MG WM 09/11 0800 AC 09/11 PO 1635 Diphenhydramine HCl 25 MG Q6P PRN 09/10 1745 AC IV Docusate Sodium 100 MG BID 09/10 220 AC 09/11 PO 0929 Heparin Sodium 5,000 UNIT Q8 09/10 2199 AC 09/11 (Porcine) SC 1500 Ipratropium Cora 2.5 ML FOUR TIMES A DAY 09/11 1800 AC INH Ipratropium Cora 1 ML FOUR TIMES A DAY 09/11 1000 DC INH Lidocaine 1 PAT 0600 09/11 0600 AC 09/11 EXT 0702 Metoprolol Succinate 37.5 MG DAILY 09/11 1000 DC PO Metoprolol Succinate 37.5 MG 22009/11 0100 AC 09/11 PO 0100 Morphine Sulfate 0 .STK-MED ONE 09/10 2136 DC .ROUTE Morphine Sulfate 2 MG Q4P PRN 09/10 1745 AC 09/11 IV 0329 Multivitamins 1 TAB DAILY 09/11 1000 AC 09/11 PO 0927 Omeprazole 40 MG DAILY AC 09/11 0700 AC 09/11 PO 0701 Patient Medication 1 ED .STK-MED ONE 09/11 1358 DC Teaching ED 09/11 1359 Polyethylene Glycol 17 GM AT BEDTIME 09/10 220 AC PO Pregabalin 25 MG ONCE ONE 09/11 1130 DC PO 09/11 1131 Prochlorperazine 10 MG Q6P PRN 09/10 1745 AC IV Roflumilast 500 MCG DAILY 09/11 1000 CAN PO Roflumilast 500 MCG DAILY 09/11 1000 AC 09/11 PO 0928 Last 24 Hrs of Lab/Jesus Results Last 24 Hrs of Labs/Mics: Laboratory Tests 09/11/16 1340: ESR Westergren 60 H 09/11/16 0643: Anion Gap 16, Estimated GFR 8 L, BUN/Creatinine Ratio 7.6, Magnesium 1.9 09/10/16 1940: Troponin I 0.08 Orders Radiology Findings: SERVICE DATE: 09/11/16-1156 EXAM TYPE: CAT - CTA CHEST-AORTIC DISSECTION EXAMINATION: CT ANGIOGRAM CHEST CLINICAL INFORMATION: Chest, back pain, rule out aortic dissection. COMPARISON: Chest radiograph 09/10/2016. TECHNIQUE: Multiple axial images were obtained through the chest after the administration of 95 mL of intravenous Optiray 320. Images were reviewed on a dedicated 3-D workstation. FINDINGS: VASCULAR: There is no evidence of aortic dissection. The ascending thoracic aorta is mildly aneurysmal, measuring 4.1 x 4.1 cm at the level of the right pulmonary artery. There is severe calcified and noncalcified atherosclerotic plaque throughout the thoracic aorta, most severe in the descending thoracic aorta, where there are several areas of ulcerated plaque, for example see image 183/483, sagittal image 54/121 demonstrates the multifocal nature of these ulcerated plaques. The appearance is not significantly changed compared with the prior exam. There is a 3-vessel aortic arch. There is moderate atherosclerotic plaque at the origin of the great vessels with mild narrowing of the vessels at the origin. The visualized subclavian arteries, vertebral arteries, and carotid arteries are unremarkable. There is a partially visualized venous stent in the cephalic arch on the left. The pulmonary arteries and pulmonary veins are normal. There is mild narrowing at the takeoff of the celiac artery. NONVASCULAR: LUNGS: There are moderate to severe emphysematous changes throughout both lungs with prominent lower lobe bronchiectasis. There is subpleural cystic change in both lungs, most prominent along the mediastinal borders. There is a mosaic attenuation throughout the lungs, consistent with small airways disease. Scattered subcentimeter nodular opacities appear similar to prior; for example, in the right lower lobe there is a 6 mm nodular opacity (255/483), in the right upper lobe there is a subpleural 3 mm nodular opacity (107/483), and in the right lung apex there is a 3 mm nodular opacity (53/483). MEDIASTINUM: There are subcentimeter mediastinal lymph nodes. There are coronary artery calcifications. No pericardial effusion. PLEURA: There is no pleural effusion. No pleural mass or thickening. AXILLA: No lymphadenopathy. UPPER ABDOMEN: There is predominantly left-sided pneumobilia with a partially visualized common bile duct stent in place. OSSEOUS STRUCTURES: There are old healed anterior rib fractures bilaterally. No destructive bony lesions. IMPRESSION: 1. No evidence of aortic dissection. The ascending thoracic aorta is mildly aneurysmal measuring 4.1 x 4.1 cm not significantly changed. 2. Extensive calcified and noncalcified atherosclerotic plaque throughout the descending thoracic aorta with multiple areas of ulcerated plaque throughout the entire descending aorta, resulting in multiple small saccular aneurysms. The overall appearance is not significantly changed from prior. There is no evidence of aortic dissection or intramural hematoma. 3. Extensive emphysematous change with underlying bronchiectasis in the lung bases, right greater than left. 4.Pulmonary nodules measuring up to 6 mm in the right lower lobe are similar to prior. Continued imaging surveillance is recommended. 5. Similar pneumobilia with common bile duct stent partially imaged. Various management parameters for solitary pulmonary nodules are in the literature. According to the Fleischner Society, recommendations for pulmonary nodules are as follows: Nodule size < or = to 4 mm in LOW RISK PATIENTS: No follow up needed. Nodule size < or = to 4 mm in HIGH RISK PATIENTS: Follow up CT at 12 months; if unchanged, no further follow up. Nodule size > 4-6 mm in LOW RISK PATIENTS: Follow up CT at 12 months; if unchanged, no further follow up. Nodule size > 4-6 mm in HIGH RISK PATIENTS: Initial follow up CT at 6-12 months, then at 18-24 months if no change. Nodule size > 6-8 mm in LOW RISK PATIENTS: Initial follow up CT at 6-12 months, then at 18-24 months if no change. Nodule size > 6-8 mm in HIGH RISK PATIENTS: Initial follow up CT at 3-6 months, then 9-12 months and 24 months if no change. Nodule size > 8 mm in LOW RISK PATIENTS: Follow up CT at around 3, 9, and 24 months, dynamic contrast-enhanced CT, PET, and/or biopsy. Nodule size > 8 mm in HIGH RISK PATIENTS: Same as for low-risk patients. DICTATED BY: PAYAL MONTES,ANKUR Hawk Assessment/Plan Assessment: This is a 71-year-old gentleman with past medical history of COPD and ESRD on hemodialysis 3 times a week who was admitted to [facility] for worsening chest pain. #Chest pain, rule out acute coronary syndrome versus musculoskeletal versus thoracic aneurysm Admit patient to telemetry service Serial EKGs and troponins. Initial troponin 0.08. Consider echo cardiogram in a.m. Should patient become hemodynamically compromise consider ruling out aortic dissection. X-ray of ribs bilaterally rule out rib fracture. Patient denies any history of trauma. Other differentials may include pneumonia and costochondritis. CTA of chest ordered today to rule out aortic dissection. No evidence of aortic dissection. CT thoracic spine without IV contrast ordered for 09/12/2016. Continue Vicodin and Tylenol for pain medication. Avoid narcotics medication due to potential side effects and or dependence. ESR. Patient may need ERICKA as an outpatient. #Acute on chronic hypercarbic respiratory failure 2/2 COPD exacerbation. Patient does have history of COPD and is on home oxygen 2 L. Chest x-ray to rule out pneumonia IV Solu-Medrol and IV azithromycin for anti-inflammatory properties. Albuterol, Symbicort and ipratropium. Considered ABG in a.m. to rule out obstructive sleep apnea. TRC nebulization treatments Incentive spirometer Sputum cultures LRC Continue BiPAP. Patient was supposed to get machine from home. #End-stage renal disease Patient will need to continue Hemodialysis next Saturday consider nephrology consult in a.m. BEP in am. Monitor creatinine daily. Creatinine on admission 6.6. Patient scheduled for dialysis tomorrow. Calcium acetate 2001 MG with meals. #Hypertension Continue antihypertensives, blood pressure this a.m. 150/78 #Chronic back pain Continue Vicodin and Tylenol for pain medication. Avoid narcotics medication due to potential side effects and or dependence. Celebrex 100 mg daily. PT consult in a.m. #Constipation Dulcolax and senna when necessary. Patient reports that opiates can periodically caused constipation. #Diet Renal dialysis #DVT prophylaxis Heparin #Code full code Problem List: 1. COPD (chronic obstructive pulmonary disease) 2. Hypertension 3. ESRD (end stage renal disease) 4. Abdominal pain 5. Abdominal aneurysm 6. COPD exacerbation 7. chronic low back pain 8. Chest pain 9. Saccular aneurysm Pain Ratin Pain Location: Right-sided chest. Pain Goal: Remain pain free Pain Plan: Vicodin for moderate pain. Tylenol for mild pain. Avoid opiate medication all weaned to side effects and future dictation potential. Tomorrow's Labs & Rationales: BEP: monitor electrolytes and creatinine function. BRUCE HUANG MD 09/11/16 2135: Attending MD Review Statement Attending Statement Attending MD Statement: examined this patient, discuss w/resident/PA/GLOBAL SUPPLY CHAIN DIRECTOR, agreed w/resident/PA/GLOBAL SUPPLY CHAIN DIRECTOR, discussed with family, reviewed EMR data (avail), discussed with nursing, discussed with case mgmt, reviewed images, amended to note Attending Assessment/Plan: The patient was seen and discussed with house staff. Appreciate Pulmonary and Cardiology input. Still with significant back and right chest wall pain with negative X-rays. Will admit for pain control and evaluation of aneurysm. Will need dialysis tomorrow.
[2016-09-11 08:00] VITALS: BP 150/78
--- NOTE | 2016-09-11 11:13 | Cons- Nephrology ---
General Information and HPI Consulting Request Date of Consult: 09/11/16 Requested By: BRUCE HUANG MD Reason for Consult: ESRD & CP Source of Information: patient, old records Exam Limitations: no limitations History of Present Illness: 71 yr old WM w mult med problems including DM, HTN, severe ASCVDx w descending thoracic saccular aneurysms, obesity, severe chronic lung dx/COPD/bronchiectasis , & ESRD on HD. Admit yesterday post HD w several days of atypical R sided CP radiating to back, worse on movement & rib palpation. No trauma, fever, or productive cough. No change chronic GARCIA & no uremic sx. Allergies/Medications Allergies: Coded Allergies: venom-honey bee (bee venom (honey bee)) (Severe, ANAPHYLAXIS 02/13/16) Penicillins (Intermediate, RASH 02/13/16) Home Med List: Albuterol Sulfate 2.5 MG/3 ML VIAL.NEB 1 Vial INH/ROSALINDA Q4P COPD (Reported) Albuterol Sulfate (Proair Hfa) 8.5 GM HFA.AER.AD 2 PUF INH PRN COPD (Reported ) Budesonide/Formoterol Fumarate (Symbicort 160-4.5 Mcg Inhaler) 10.2 GM HFA.AER.AD 2 PUF INH BID COPD Calcium Acetate (Phoslo) 667 MG CAPSULE 3 CAP PO WM KIDNEYS (Reported) Ipratropium/Albuterol Sulfate (Combivent Respimat Inhal [place]) 4 GM MIST.INHAL 1 PUFF INH 4 TIMES/DAY COPD (Reported) Metoprolol Succ XL (Toprol XL) 25 MG TAB 1.5 TAB PO DAILY atrial fibrillatoin Nephro-Vitamins (Nephro-Angie Tablet) 0.8 MG TABLET 1 TAB PO DAILY RENAL DX ( Reported) Pantoprazole Sodium 40 MG TABLET.DR 40 MG PO DAILY GERD (Reported) Roflumilast (Daliresp) 500 MCG TABLET 1 TAB PO DAILY COPD (Reported) Rosuvastatin Calcium (Crestor) 5 MG TABLET 5 MG PO DAILY HIGH CHOLESTROL ( Reported) Current Medications: Current Medications Sig/Zoe Start time Last Medication Dose Route Stop Time Status Admin Acetaminophen 650 MG Q6P PRN 09/10 1745 AC PO Acetaminophen/ 1 TAB Q6P PRN 09/10 1745 AC Hydrocodone Bitart PO Albuterol Sulfate 1 PUF FOUR TIMES A DAY 09/10 1900 CAN INH Albuterol Sulfate 2 PUF DAILY PRN 09/10 1900 AC INH Atorvastatin Calcium 20 MG 1700 09/11 1700 AC PO Budesonide/ 2 PUF BID 09/10 2200 AC 09/11 Formoterol Fumarate INH 0926 Calcium Acetate 2,001 MG WM 09/11 0800 AC 09/11 PO 0928 Diphenhydramine HCl 25 MG Q6P PRN 09/10 1745 AC IV Docusate Sodium 100 MG BID 09/10 2200 AC 09/11 PO 0929 Heparin Sodium 5,000 UNIT Q8 09/10 2200 AC 09/11 (Porcine) SC 0701 Ipratropium Barry 1 ML FOUR TIMES A DAY 09/11 1000 AC INH Lidocaine 1 PAT 0600 09/11 0600 AC 09/11 EXT 0702 Metoprolol Succinate 37.5 MG DAILY 09/11 1000 DC PO Metoprolol Succinate 37.5 MG 22009/11 0100 AC 09/11 PO 0100 Morphine Sulfate 0 .STK-MED ONE 09/10 2136 DC .ROUTE Morphine Sulfate 2 MG Q4P PRN 09/10 1745 AC 09/11 IV 0329 Morphine Sulfate 0 .STK-MED ONE 09/10 1602 DC .ROUTE Morphine Sulfate 4 MG ONCE ONE 09/10 1600 DC 09/10 IV 09/10 1601 1604 Morphine Sulfate 0 .STK-MED ONE 09/10 1308 DC .ROUTE Morphine Sulfate 4 MG ONCE ONE 09/10 1300 DC 09/10 IV 09/10 1301 1312 Multivitamins 1 TAB DAILY 09/11 1000 AC 09/11 PO 0927 Omeprazole 40 MG DAILY AC 09/11 0700 AC 09/11 PO 0701 Polyethylene Glycol 17 GM AT BEDTIME 09/10 2200 AC PO Prochlorperazine 10 MG Q6P PRN 09/10 1745 AC IV Roflumilast 500 MCG DAILY 09/11 1000 CAN PO Roflumilast 500 MCG DAILY 09/11 1000 AC 09/11 PO 0928 Review of Systems Review of Systems Constitutional: Reports: no symptoms. EENTM: Reports: no symptoms. Cardiovascular: Denies: chest pain. Respiratory: Reports: short of breath. GI: Reports: no symptoms. Genitourinary: Reports: no symptoms. Musculoskeletal: Reports: see HPI. Skin: Reports: no symptoms. Neurological/Psychological: Reports: no symptoms. Hematologic/Endocrine: Reports: no symptoms. Immunologic/Allergic: Reports: no symptoms. All Other Systems: Reviewed and Negative Past History Travel History Traveled to [place] past 21 day No Medical History Blood Transfusion Hx: Yes Neurological: NONE EENT: NONE Cardiovascular: CAD, hypertension, stents, severe pulmonary hypertension Respiratory: asthma, COPD, 2L O2 DEPENDANT CPAP EACH NIGHT Gastrointestinal: NONE Hepatic: NONE, hepatic congestion, splenomegaly Renal: ESRD on HD, FISTULA ON L UPPER EXT Musculoskeletal: NONE Psychiatric: NONE Endocrine: NONE, diabetes Blood Disorders: myelodysplastic syndrome. Cancer(s): NONE RESOURCE COORDINATOR/Reproductive: NONE Surgical History Surgical History: cholecystectomy, AV FISTULA LUE Family History Relations & Conditions If Any: FATHER (CKD on HD, CAD, VA, DM). MOTHER (CKD on HD, CAD, VA, DM). FATHER (CKD on Hemodialysis, CAD, DM). MOTHER (CKD on Hemodialysis, CAD, VA). Psychosocial History Where Do You Live? Home Who Do You Live With? spouse Services at Home: Oxygen Primary Language: Macedonian Smoking Status: Former Smoker Functional Ability ADLs Independent: eating, toileting. Needs Assist: bathing. Ambulation: independent Exam & Diagnostic Data Vital Signs and I&O Vital Signs Date Time Temp Pulse Resp B/P Pulse O2 O2 Flow FiO2 Ox Delivery Rate 09/11 0800 Nasal 2.0L Cannula 09/11 0800 97.6 109 20 150/78 95 Nasal 1.5L Cannula 09/11 0100 100 140/72 09/11 0000 94 Nasal 2.0L Cannula 09/10 2307 97.5 113 18 144/76 96 Nasal 1.5L Cannula 09/10 1702 97.0 112 16 145/84 98 Nasal 2.0L Cannula 09/10 1429 106 18 149/78 99 Nasal 2.0L Cannula 09/10 1326 96 Nasal 2.0L Cannula 09/10 1238 95.0 121 20 139/91 98 Nasal 2.0L Cannula Intake & Output 09/11 1600 09/11 0400 09/10 1600 09/10 0400 09/09 1600 09/09 040 Intake Total 220 300 Output Total Balance 220 300 Intake, Oral 220 300 Patient 194 lb 192 lb Weight Physical Exam General Appearance: well developed/nourished, no apparent distress Head: atraumatic, normal appearance Eyes: Bilateral: normal appearance. Ears, Nose, Throat: normal ENT inspection Neck: normal inspection Respiratory: normal breath sounds, lungs clear, marked R sided rib & sternal tenderness on palpation Cardiovascular: regular rate/rhythm, friction rub (none) Gastrointestinal: soft, non-tender, no organomegaly Extremities: no edema, + bruit DHRUV AVF Neurologic/Psych: no motor/sensory deficits, awake, alert, oriented x 3, abnormal PRODUCT INSPECTION COORDINATOR II-XII Skin: intact, normal color, warm/dry Lymphatic: no anterior cervical ramakrishna Results Pertinent Lab Results: Laboratory Tests 09/11 09/10 09/10 0643 1940 1300 Chemistry Sodium (137 - 145 mmol/L) 137 141 Potassium (3.5 - 5.1 mmol/L) 5.3 H 4.9 Chloride (98 - 107 mmol/L) 90 L 92 L Carbon Dioxide (22 - 30 mmol/L) 31 H 30 Anion Gap (5 - 16) 16 19 H BUN (9 - 20 mg/dL) 50 H 33 H Creatinine (0.7 - 1.2 mg/dL) 6.6 *H 4.5 H Estimated GFR (>60 ml/min) 8 L 13 L BUN/Creatinine Ratio (7 - 25 %) 7.6 7.3 Glucose (65 - 99 mg/dL) 105 H Calcium (8.4 - 10.2 mg/dL) 9.1 Magnesium (1.6 - 2.3 mg/dL) 1.9 Total Bilirubin (0.2 - 1.3 mg/dL) 0.6 AST (17 - 59 U/L) 21 ALT (21 - 72 U/L) 28 Alkaline Phosphatase (< 127 U/L) 60 Troponin I (<0.11 ng/ml) 0.08 0.08 Dih-W-Ludqdrysuby Pept (<125 pg/mL) 09157 H Total Protein (6.3 - 8.2 g/dL) 6.9 Albumin (3.5 - 5.0 g/dL) 4.2 Globulin (1.9 - 4.2 gm/dL) 2.7 Albumin/Globulin Ratio (1.1 - 2.2 %) 1.6 Hematology CBC w Diff NO MAN DIFF REQ WBC (4.8 - 10.8 /CUMM) 8.0 RBC (4.70 - 6.10 /CUMM) 3.80 L Hgb (14.0 - 18.0 G/DL) 11.2 L Hct (42 - 52 %) 33.6 L MCV (80.0 - 94.0 FL) 88.4 MCH (27.0 - 31.0 PG) 29.4 RDW (11.5 - 14.5 %) 14.8 H Plt Count (130 - 400 /CUMM) 133 MPV (7.4 - 10.4 FL) 10.3 Gran % (42.2 - 75.2 %) 81.4 H Lymphocytes % (20.5 - 51.1 %) 8.6 L Monocytes % (1.7 - 9.3 %) 7.2 Eosinophils % (0 - 5 %) 2.2 Basophils % (0.0 - 2.0 %) 0.6 Absolute Granulocytes (1.4 - 6.5 /CUMM) 6.5 Absolute Lymphocytes (1.2 - 3.4 /CUMM) 0.7 L Absolute Monocytes (0.10 - 0.60 /CUMM) 0.6 Absolute Eosinophils (0.0 - 0.7 /CUMM) 0.2 Absolute Basophils (0.0 - 0.2 /CUMM) 0 PUBS MCHC (33.0 - 37.0 G/DL) 33.2 Imaging/Other Studies: CXR: Symmetric lung inflation. No focal consolidation, pleural effusion, or pneumothorax. Cardiac silhouette size is normal. The aorta is again noted to be tortuous in its course. A left axillary vascular stent is redemonstrated. There are no acute osseous findings. IMPRESSION: No acute pulmonary process. Spine: The vertebrae have normal height and alignment. No fracture bone or destruction. Mild degenerative lipping at the anterior endplates of the thoracic vertebrae. Compared to prior study no change. A biliary stent is partially visualized in the right upper quadrant of the abdomen. IMPRESSION: No acute abnormality. Mild degenerative change of the dorsal spine. Ribs: FINDINGS: No displaced left rib fracture or focal bone lesion. Left lung clear. No left pleural effusion or pneumothorax on the left. Vascular stents over the left shoulder and left upper arm. IMPRESSION: No displaced left rib fracture Targeted right rib radiographs demonstrate no acute fracture or cortical disruption. Alignment is anatomic. Assessment/Plan Assessment/Recommendations Assessment: 1. ESRD: due to DM & HTN; dialyzed yesterday & w/o HD need today 2. Chest/rib pain: prob musculoskeltal; no rub to suggest pericarditis & hx/PE not suggestive of dissection but no renal contraindication to ERICKA or CTA to exclude. Favor trial of NSAIDs. Recommendations: 1. HD tomorrow 2. Celebrex 100 mg qday 3. Ca acetate 2001 mg meals 4. Consider ERICKA or CTA if persists
--- NOTE | 2016-09-11 11:54 | Cons- Pulmonary ---
See Addendum General Information and HPI Consulting Request Date of Consult: 09/11/16 Requested By: Med team History of Present Illness: 71 yo M with pmh of COPD, LLUVIA requiring home oxygen, CAD s/p stent placement, HTN, pul HTN, ESRD getting dialysis every Mon/Wed/Fri, presented to the emergency department on 09/10/2016 after experiencing a prolonged duration of chest pain. Patient states that that his pain originally began on 09/04/2016. Pain was initially located on the right-hand side of the patient's chest, under the patient's breast and radiated towards the right back. Over the course of the week this pain then progressed the left-hand side again under the breast and this time radiated the back and was diffusely present all over his back. Over the last few days the patient has continued to experience more intense pain. Approximately 3days ago the patient had a drastic escalation in his pain on the left which was rated at a 9 out of 10 in severity. It was described as a dull and constant pain and this duration of intense pain lasted approximately 2 minutes. Patient states the pain in his chest and back radiates up to his head. The patient states that he has had to take Advil often increasing his dose for symptomatic relief. The patient denies any fever, chills, nausea, vomiting. He does however report orthopnea and palpitations as well as diaphoresis. The patient also reports dyspnea and dyspnea on exertion. Review of Systems Constitutional: Reports: diaphoresis, weakness. Denies: chills, fever, malaise. Cardiovascular: Reports: chest pain, orthopena, palpitations. Denies: edema, syncope. Respiratory: Reports: orthopnea, short of breath. Denies: cough, hemoptysis. GI: Denies: abdominal pain, bloating, constipation, diarrhea, distention, bowel incontinence. Genitourinary: Denies: discharge, dysuria, frequency, hematuria. Musculoskeletal: Reports: back pain. Skin: Denies: change in skin color, change in hair/nails, dryness. Allergies/Medications Allergies: Coded Allergies: venom-honey bee (bee venom (honey bee)) (Severe, ANAPHYLAXIS 02/13/16) Penicillins (Intermediate, RASH 02/13/16) Home Med List: Albuterol Sulfate 2.5 MG/3 ML VIAL.NEB 1 Vial INH/ROSALINDA Q4P COPD (Reported) Albuterol Sulfate (Proair Hfa) 8.5 GM HFA.AER.AD 2 PUF INH PRN COPD (Reported ) Budesonide/Formoterol Fumarate (Symbicort 160-4.5 Mcg Inhaler) 10.2 GM HFA.AER.AD 2 PUF INH BID COPD Calcium Acetate (Phoslo) 667 MG CAPSULE 3 CAP PO WM KIDNEYS (Reported) Ipratropium/Albuterol Sulfate (Combivent Respimat Inhal [place]) 4 GM MIST.INHAL 1 PUFF INH 4 TIMES/DAY COPD (Reported) Metoprolol Succ XL (Toprol XL) 25 MG TAB 1.5 TAB PO DAILY atrial fibrillatoin Nephro-Vitamins (Nephro-Angie Tablet) 0.8 MG TABLET 1 TAB PO DAILY RENAL DX ( Reported) Pantoprazole Sodium 40 MG TABLET.DR 40 MG PO DAILY GERD (Reported) Roflumilast (Daliresp) 500 MCG TABLET 1 TAB PO DAILY COPD (Reported) Rosuvastatin Calcium (Crestor) 5 MG TABLET 5 MG PO DAILY HIGH CHOLESTROL ( Reported) Review of Systems Review of Systems Constitutional: Reports: see HPI. Past History Travel History Traveled to [place] past 21 day No Medical History Blood Transfusion Hx: Yes Neurological: NONE EENT: NONE Cardiovascular: CAD, hypertension, stents, severe pulmonary hypertension Respiratory: asthma, COPD, 2L O2 DEPENDANT CPAP EACH NIGHT Gastrointestinal: NONE Hepatic: NONE, hepatic congestion, splenomegaly Renal: ESRD on HD, FISTULA ON L UPPER EXT Musculoskeletal: NONE Psychiatric: NONE Endocrine: NONE, diabetes Blood Disorders: myelodysplastic syndrome. 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 MOTHER (CKD on HD, CAD, MD, DM). FATHER (CKD on Hemodialysis, CAD, DM). MOTHER (CKD on Hemodialysis, CAD, MD). Psychosocial History Where Do You Live? Home Who Do You Live With? spouse Services at Home: Oxygen Primary Language: Serbian Smoking Status: Former Smoker Functional Ability ADLs Independent: eating, toileting. Needs Assist: bathing. Ambulation: independent Exam & Diagnostic Data Last 24 Hrs of Vital Signs/I&O Vital Signs Date Time Temp Pulse Resp B/P Pulse O2 O2 Flow FiO2 Ox Delivery Rate 09/11 08 Nasal 2.0L Cannula 09/11 08 97.6 109 20 150/78 95 Nasal 1.5L Cannula 09/11 0100 100 140/72 09/11 0000 94 Nasal 2.0L Cannula 09/10 2307 97.5 113 18 144/76 96 Nasal 1.5L Cannula 09/10 1702 97.0 112 16 145/84 98 Nasal 2.0L Cannula 09/10 1429 106 18 149/78 99 Nasal 2.0L Cannula 09/10 1326 96 Nasal 2.0L Cannula 09/10 1238 95.0 121 20 139/91 98 Nasal 2.0L Cannula Intake & Output 09/11 1600 09/11 0800 09/11 0000 Intake Total 220 300 Output Total Balance 220 300 Intake, Oral 220 300 Patient 194 lb Weight Last 48 Hrs of Labs/Jesus: Laboratory Tests 09/11/16 0643: Anion Gap 16, Estimated GFR 8 L, BUN/Creatinine Ratio 7.6, Magnesium 1.9 09/10/16 1940: Troponin I 0.08 09/10/16 1300: Anion Gap 19 H, Estimated GFR 13 L, BUN/Creatinine Ratio 7.3, Glucose 105 H, Calcium 9.1, Total Bilirubin 0.6, AST 21, ALT 28, Alkaline Phosphatase 60, Troponin I 0.08, [id number]-Swxmakubiuw Pept 18229 H, Total Protein 6.9, Albumin 4.2 , Globulin 2.7, Albumin/Globulin Ratio 1.6, CBC w Diff NO MAN DIFF REQ, RBC 3.80 L, MCV 88.4, MCH 29.4, RDW 14.8 H, MPV 10.3, Gran % 81.4 H, Lymphocytes % 8.6 L, Monocytes % 7.2, Eosinophils % 2.2, Basophils % 0.6, Absolute Granulocytes 6.5, Absolute Lymphocytes 0.7 L, Absolute Monocytes 0.6, Absolute Eosinophils 0.2, Absolute Basophils 0, PUBS MCHC 33.2 Assessment/Plan Impression/Plan: This is a gentleman with end-stage COPD on oxygen, recurrent exacerbation on prednisone, Bronchiectasis due to recurrent infections, dietary noncompliance, ESRD, mild bilateral bronchiectasis, morbid obesity with obstructive sleep apnea , hypertension, previous hyperkalemia, cor pulmonale, on CPAP at home, previous hepatic disease with splenomegaly, moderate to severe pulmonary hypertension, myelodysplastic process, now comes in with * Radicular pain with spine tenderness suggestive of radiculopathy * Sig copd with no evidence of exacerbation * Sig copd with Previous bronchiectasis. 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 but appears to not have any sig infection at this time * SIg thoracic aneurysm saccular in nature * On off chest pain with * Obstructive sleep apnea on CPAP compliant * Chronic steroid use * Morbid obesity with noncompliance * Previous history of biliary sepsis obstruction no no evidence suggestive of that with previous stent with pneumobilia REC CTA CHEst to rule out dissection and penetrating ulcer in the aorta etc and this might help us rule out pe aswell IF ok then would also need ct of the thoracic spine to eval for anyother path Check esr Ask cardio to see if not done as the pt may need paulino if possible Cont bipap Sugar control Dialysis COnt all the bronchodilators Consult Acknowledgment - Thank you for your consult request.
--- NOTE | 2016-09-11 13:21 | Cons- Cardiology ---
General Information and HPI Consulting Request Date of Consult: 09/11/16 Requested By: BRUCE HUANG MD Reason for Consult: chest pain History of Present Illness: The patient is a 71-year-old male who is followed by Dr. Recio with history of CAD status post stent, end-stage renal disease on hemodialysis, multiple saccular aneurysms of the descending thoracic aorta, pulmonary hypertension who presented with chest pain. The chest pain has been intermittent over the past few days. It is primarily located on the right side radiating to the back, however at times it moves to the left side. The severity ranges from 8-10 out of 10. It is intermittent, occurring multiple times per day with each episode lasting about an hour. No shortness of breath. No syncope. No lightheadedness or dizziness. No nausea or vomiting. No diaphoresis. The patient was taking Advil at home for symptomatic relief Allergies/Medications Allergies: Coded Allergies: venom-honey bee (bee venom (honey bee)) (Severe, ANAPHYLAXIS 02/13/16) Penicillins (Intermediate, RASH 02/13/16) Home Med List: Albuterol Sulfate 2.5 MG/3 ML VIAL.NEB 1 Vial INH/ROSALINDA Q4P COPD (Reported) Albuterol Sulfate (Proair Hfa) 8.5 GM HFA.AER.AD 2 PUF INH PRN COPD (Reported ) Budesonide/Formoterol Fumarate (Symbicort 160-4.5 Mcg Inhaler) 10.2 GM HFA.AER.AD 2 PUF INH BID COPD Calcium Acetate (Phoslo) 667 MG CAPSULE 3 CAP PO WM KIDNEYS (Reported) Ipratropium/Albuterol Sulfate (Combivent Respimat Inhal [place]) 4 GM MIST.INHAL 1 PUFF INH 4 TIMES/DAY COPD (Reported) Metoprolol Succ XL (Toprol XL) 25 MG TAB 1.5 TAB PO DAILY atrial fibrillatoin Nephro-Vitamins (Nephro-Angie Tablet) 0.8 MG TABLET 1 TAB PO DAILY RENAL DX ( Reported) Pantoprazole Sodium 40 MG TABLET.DR 40 MG PO DAILY GERD (Reported) Roflumilast (Daliresp) 500 MCG TABLET 1 TAB PO DAILY COPD (Reported) Rosuvastatin Calcium (Crestor) 5 MG TABLET 5 MG PO DAILY HIGH CHOLESTROL ( Reported) Current Medications: Current Medications Sig/Zoe Start time Last Medication Dose Route Stop Time Status Admin Acetaminophen 650 MG Q6P PRN 09/10 1745 AC PO Acetaminophen/ 1 TAB Q6P PRN 09/10 1745 AC 09/11 Hydrocodone Bitart PO 1116 Albuterol Sulfate 1 PUF FOUR TIMES A DAY 09/10 1900 CAN INH Albuterol Sulfate 2 PUF DAILY PRN 09/10 1900 AC INH Atorvastatin Calcium 20 MG 1700 09/11 1700 AC PO Budesonide/ 2 PUF BID 09/10 2200 AC 09/11 Formoterol Fumarate INH 0926 Calcium Acetate 2,001 MG WM 09/11 0800 AC 09/11 PO 0928 Diphenhydramine HCl 25 MG Q6P PRN 09/10 1745 AC IV Docusate Sodium 100 MG BID 09/10 2200 AC 09/11 PO 0929 Heparin Sodium 5,000 UNIT Q8 09/10 2200 AC 09/11 (Porcine) SC 0701 Ipratropium [place] 1 ML FOUR TIMES A DAY 09/11 1000 AC INH Lidocaine 1 PAT 0600 09/11 0600 AC 09/11 EXT 0702 Metoprolol Succinate 37.5 MG DAILY 09/11 1000 DC PO Metoprolol Succinate 37.5 MG 22009/11 0100 AC 09/11 PO 0100 Morphine Sulfate 0 .STK-MED ONE 09/10 2136 DC .ROUTE Morphine Sulfate 2 MG Q4P PRN 09/10 1745 AC 09/11 IV 0329 Morphine Sulfate 0 .STK-MED ONE 09/10 1602 DC .ROUTE Morphine Sulfate 4 MG ONCE ONE 09/10 1600 DC 09/10 IV 09/10 1601 1604 Multivitamins 1 TAB DAILY 09/11 1000 AC 09/11 PO 0927 Omeprazole 40 MG DAILY AC 09/11 0700 AC 09/11 PO 0701 Polyethylene Glycol 17 GM AT BEDTIME 09/10 2200 AC PO Pregabalin 25 MG ONCE ONE 09/11 1130 DC PO 09/11 1131 Prochlorperazine 10 MG Q6P PRN 09/10 1745 AC IV Roflumilast 500 MCG DAILY 09/11 1000 CAN PO Roflumilast 500 MCG DAILY 09/11 1000 AC 09/11 PO 0928 Review of Systems Review of Systems: No rash. No tremor. No melena. No cough. No hemoptysis. All other systems were reviewed, and were noted to be negative. Past History Travel History Traveled to [place] past 21 day No Medical History Blood Transfusion Hx: Yes Neurological: NONE EENT: NONE Cardiovascular: CAD, hypertension, stents, severe pulmonary hypertension Respiratory: asthma, COPD, 2L O2 DEPENDANT CPAP EACH NIGHT Gastrointestinal: NONE Hepatic: NONE, hepatic congestion, splenomegaly Renal: ESRD on HD, FISTULA ON L UPPER EXT Musculoskeletal: NONE Psychiatric: NONE Endocrine: NONE, diabetes Blood Disorders: myelodysplastic syndrome. Cancer(s): NONE [employer]/Reproductive: NONE Surgical History Surgical History: cholecystectomy, AV FISTULA LUE Family History Relations & Conditions If Any: FATHER (CKD on HD, CAD, NM, DM). MOTHER (CKD on HD, CAD, NM, DM). FATHER (CKD on Hemodialysis, CAD, DM). MOTHER (CKD on Hemodialysis, CAD, NM). Psychosocial History Where Do You Live? Home Who Do You Live With? spouse Services at Home: Oxygen Primary Language: Chinese Smoking Status: Former Smoker Functional Ability ADLs Independent: eating, toileting. Needs Assist: bathing. Ambulation: independent ECHO Results (as available) Report: CONCLUSIONS 1. This was a limited followup examination performed to reassess the LV systolic function and the size of the pericardial effusion. 2. Aortic sclerosis is present. 3 Mitral leaflet thickening is present. 4. A small circumferential pericardial effusion is present. The effusion is more prominent posteriorly on this examination. The effusion remains hemodynamically insignificant. 5. Left atrial dilatation is present. 6. The left ventricular chamber size is normal with an ejection fraction of greater than 55-60%. There are no visible resting wall motion abnormalities. 7. The right heart structures were not optimally assessed. 8. A complete doppler examination was not performed on this examination. Exam & Diagnostic Data Vital Signs and I&O Vital Signs Date Time Temp Pulse Resp B/P Pulse O2 O2 Flow FiO2 Ox Delivery Rate 09/11 08 Nasal 2.0L Cannula 09/11 08 97.6 109 20 150/78 95 Nasal 1.5L Cannula 09/11 0100 100 140/72 09/11 0000 94 Nasal 2.0L Cannula 09/10 2307 97.5 113 18 144/76 96 Nasal 1.5L Cannula 09/10 1702 97.0 112 16 145/84 98 Nasal 2.0L Cannula 09/10 1429 106 18 149/78 99 Nasal 2.0L Cannula 09/10 1326 96 Nasal 2.0L Cannula Intake & Output 09/11 0809/11 0000 09/10 1600 09/10 0809/10 0000 Intake Total 220 300 Output Total Balance 220 300 Intake, Oral 220 300 Patient 194 lb 192 lb Weight Physical Exam: Gen: The patient is in no acute distress HEENT: Normal nose, ears, and oropharynx. Pupils equal bilaterally. Conjunctiva normal. Neck: Supple with no JVD, no masses, and no thyromegaly Lungs: Clear to auscultation with normal respiratory effort Heart: RRR, S1, S2, 1/6 systolic murmur. No peripheral edema, 1+ pulses in the lower extremities bilaterally Abdomen: Soft, nontender, no masses. No hepatomegaly. No splenomegaly Extremities: No clubbing or cyanosis. Normal muscle strength in the upper and lower extremities Skin: Normal skin turgor with no skin ulcers or lesions noted. Neuro: Cranial nerves intact. Sensation intact Psych: Alert and oriented 3 with appropriate affect Labs/Jesus Results: Laboratory Tests 09/11 09/10 09/10 0643 1940 1300 Chemistry Sodium (137 - 145 mmol/L) 137 141 Potassium (3.5 - 5.1 mmol/L) 5.3 H 4.9 Chloride (98 - 107 mmol/L) 90 L 92 L Carbon Dioxide (22 - 30 mmol/L) 31 H 30 Anion Gap (5 - 16) 16 19 H BUN (9 - 20 mg/dL) 50 H 33 H Creatinine (0.7 - 1.2 mg/dL) 6.6 *H 4.5 H Estimated GFR (>60 ml/min) 8 L 13 L BUN/Creatinine Ratio (7 - 25 %) 7.6 7.3 Glucose (65 - 99 mg/dL) 105 H Calcium (8.4 - 10.2 mg/dL) 9.1 Magnesium (1.6 - 2.3 mg/dL) 1.9 Total Bilirubin (0.2 - 1.3 mg/dL) 0.6 AST (17 - 59 U/L) 21 ALT (21 - 72 U/L) 28 Alkaline Phosphatase (< 127 U/L) 60 Troponin I (<0.11 ng/ml) 0.08 0.08 [id number] Pept (<125 pg/mL) 02079 H Total Protein (6.3 - 8.2 g/dL) 6.9 Albumin (3.5 - 5.0 g/dL) 4.2 Globulin (1.9 - 4.2 gm/dL) 2.7 Albumin/Globulin Ratio (1.1 - 2.2 %) 1.6 Hematology CBC w Diff NO MAN DIFF REQ WBC (4.8 - 10.8 /CUMM) 8.0 RBC (4.70 - 6.10 /CUMM) 3.80 L Hgb (14.0 - 18.0 G/DL) 11.2 L Hct (42 - 52 %) 33.6 L MCV (80.0 - 94.0 FL) 88.4 MCH (27.0 - 31.0 PG) 29.4 RDW (11.5 - 14.5 %) 14.8 H Plt Count (130 - 400 /CUMM) 133 MPV (7.4 - 10.4 FL) 10.3 Gran % (42.2 - 75.2 %) 81.4 H Lymphocytes % (20.5 - 51.1 %) 8.6 L Monocytes % (1.7 - 9.3 %) 7.2 Eosinophils % (0 - 5 %) 2.2 Basophils % (0.0 - 2.0 %) 0.6 Absolute Granulocytes (1.4 - 6.5 /CUMM) 6.5 Absolute Lymphocytes (1.2 - 3.4 /CUMM) 0.7 L Absolute Monocytes (0.10 - 0.60 /CUMM) 0.6 Absolute Eosinophils (0.0 - 0.7 /CUMM) 0.2 Absolute Basophils (0.0 - 0.2 /CUMM) 0 PUBS MCHC (33.0 - 37.0 G/DL) 33.2 Diagnostic Data EKG Results EKG tracing is independently reviewed, and reveals sinus tachycardia at 116, left atrial abnormality, left axis deviation, poor R-wave progression CXR Results Chest x-ray: Negative Other Results ERICKA June 2016: 1. Aortic sclerosis is present with no valvular stenosis or insufficiency. 2. Mitral thickening is present with anular calcification and mild to moderate mitral insufficiency with left atrial enlargement. 3. There is no pericardial fluid detected. 4. The pulmonary venous anatomy is normal bilaterally with normal doppler profiles. 5. The left ventricualr chamber size is normal with an ejection fraction of 50-55%. Accurate wall motion assessment was not possible. 6. The right heart chambers are upper normal in size. Mild tricuspid insufficiency is present with minimal pulmonic insufficiency. THe RV systolic pressure could not be accurately assessed. 7. A PFO is present with a very small resting left to right shunt noted. Agitated saline injection was not performed. 8. Grade IV atheromatous plaque is present throughout the distal aortic arch and the visualized portions of the descending thoracic aorta. Spontaneous contrast is also noted. Areas of protruding atheroma and thrombus are present. Multiple areas of plaque ulceration are also noted. THere are no penetrating ulcers, dissection or intramural hematoma detected. Assessment/Plan Assessment/Plan Assessment: 1. CAD, status post coronary stent 2. COPD 3. Hypertension 4. End-stage renal disease 5. 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 Chest pain, ruled out for mitral infarction. Concerning for possible aortic dissection given the history of saccular aneurysms Recommendations: * Myocardial infarction has been ruled out with negative troponin 2 * I agree with CTA to rule out aortic dissection or penetrating ulcer. * If the CT is negative, then no further inpatient cardiac workup is needed. * Follow up with Dr. Recio within 1 week. Possible pharmacologic nuclear stress test as outpatient. Consult Acknowledgment - Thank you for your consult request.
--- NOTE | 2016-09-11 13:22 | Patient Discharge Instructions ---
Discharge Instructions General Discharge Information You were seen/treated for: Chest Pain Diabetes CKD Watch for these problems: Fever, nausea, vomiting, chills, weakness, increased generalized edema. Palpitations. Chest pain. Shortness of breath. If you have any adverse reactions from any of the medications prescribed please inform your primary care physician and you may be required to come back to the emergency department. Thank you for letting us be part of your care. Special Instructions: Please follow-up with your primary care physician on 09/14/2016. This is for a post hospital discharge follow-up. Please follow-up with the customs guard on 09/17/2016. We have provided you with a referral. Diet Recommended Diet: Heart Healthy, Renal Dialysis Activity Activity Self Limited: Yes (As Tolerated) Acute Coronary Syndrome Inclusion Criteria At DC or during hospital stay patient has or had the following: ACS DIAGNOSIS No Discharge Core Measures Meds if any: Prescribed or Continued at Discharge Meds if any: NOT Prescribed or Continued at Discharge Congestive Heart Failure Inclusion Criteria At DC or during hospital stay patient has or had the following: CHF DIAGNOSIS No Discharge Core Measures Meds if any: Prescribed or Continued at Discharge Meds if any: NOT Prescribed or Continued at Discharge Cerebrovascular accident Inclusion Criteria At DC or during hospital stay patient has or had the following: CVA/TIA Diagnosis No Discharge Core Measures Meds if any: Prescribed or Continued at Discharge Meds if any: NOT Prescribed or Continued at Discharge Venous thromboembolism Inclusion Criteria VTE Diagnosis No VTE Type NONE VTE Confirmed by (Test) NONE Discharge Core Measures - Per Current guidelines, there needs to be overlap - treatment for the first 5 days of Warfarin therapy. - If discharged on Warfarin prior to 5 days of - overlap therapy, the patient will need to be - assessed for post discharge needs including - *Post discharge parental anticoagulation - *Warfarin and/or parental anticoagulation education - *Follow up date to check INR post discharge At least 5 days overlap therapy as Inpatient No Meds if any: Prescribed or Continued at Discharge Note: Overlap Therapy is Warfarin and Anticoagulant Meds if any: NOT Prescribed or Continued at Discharge
--- NOTE | 2016-09-11 14:52 | CT SCAN REPORT ---
EXAMINATION: CT ANGIOGRAM CHEST CLINICAL INFORMATION: Chest, back pain, rule out aortic dissection. COMPARISON: Chest radiograph 09/10/2016. TECHNIQUE: Multiple axial images were obtained through the chest after the administration of 95 mL of intravenous Optiray 320. Images were reviewed on a dedicated 3-D workstation. FINDINGS: VASCULAR: There is no evidence of aortic dissection. The ascending thoracic aorta is mildly aneurysmal, measuring 4.1 x 4.1 cm at the level of the right pulmonary artery. There is severe calcified and noncalcified atherosclerotic plaque throughout the thoracic aorta, most severe in the descending thoracic aorta, where there are several areas of ulcerated plaque, for example see image 183/483, sagittal image 54/121 demonstrates the multifocal nature of these ulcerated plaques. The appearance is not significantly changed compared with the prior exam. There is a 3-vessel aortic arch. There is moderate atherosclerotic plaque at the origin of the great vessels with mild narrowing of the vessels at the origin. The visualized subclavian arteries, vertebral arteries, and carotid arteries are unremarkable. There is a partially visualized venous stent in the cephalic arch on the left. The pulmonary arteries and pulmonary veins are normal. There is mild narrowing at the takeoff of the celiac artery. NONVASCULAR: LUNGS: There are moderate to severe emphysematous changes throughout both lungs with prominent lower lobe bronchiectasis. There is subpleural cystic change in both lungs, most prominent along the mediastinal borders. There is a mosaic attenuation throughout the lungs, consistent with small airways disease. Scattered subcentimeter nodular opacities appear similar to prior; for example, in the right lower lobe there is a 6 mm nodular opacity (255/483), in the right upper lobe there is a subpleural 3 mm nodular opacity (107/483), and in the right lung apex there is a 3 mm nodular opacity (53/483). MEDIASTINUM: There are subcentimeter mediastinal lymph nodes. There are coronary artery calcifications. No pericardial effusion. PLEURA: There is no pleural effusion. No pleural mass or thickening. AXILLA: No lymphadenopathy. UPPER ABDOMEN: There is predominantly left-sided pneumobilia with a partially visualized common bile duct stent in place. OSSEOUS STRUCTURES: There are old healed anterior rib fractures bilaterally. No destructive bony lesions. IMPRESSION: 1. No evidence of aortic dissection. The ascending thoracic aorta is mildly aneurysmal measuring 4.1 x 4.1 cm not significantly changed. 2. Extensive calcified and noncalcified atherosclerotic plaque throughout the descending thoracic aorta with multiple areas of ulcerated plaque throughout the entire descending aorta, resulting in multiple small saccular aneurysms. The overall appearance is not significantly changed from prior. There is no evidence of aortic dissection or intramural hematoma. 3. Extensive emphysematous change with underlying bronchiectasis in the lung bases, right greater than left. 4.Pulmonary nodules measuring up to 6 mm in the right lower lobe are similar to prior. Continued imaging surveillance is recommended. 5. Similar pneumobilia with common bile duct stent partially imaged. Various management parameters for solitary pulmonary nodules are in the literature. According to the Fleischner Society, recommendations for pulmonary nodules are as follows: Nodule size < or = to 4 mm in LOW RISK PATIENTS: No follow up needed. Nodule size < or = to 4 mm in HIGH RISK PATIENTS: Follow up CT at 12 months; if unchanged, no further follow up. Nodule size > 4-6 mm in LOW RISK PATIENTS: Follow up CT at 12 months; if unchanged, no further follow up. Nodule size > 4-6 mm in HIGH RISK PATIENTS: Initial follow up CT at 6-12 months, then at 18-24 months if no change. Nodule size > 6-8 mm in LOW RISK PATIENTS: Initial follow up CT at 6-12 months, then at 18-24 months if no change. Nodule size > 6-8 mm in HIGH RISK PATIENTS: Initial follow up CT at 3-6 months, then 9-12 months and 24 months if no change. Nodule size > 8 mm in LOW RISK PATIENTS: Follow up CT at around 3, 9, and 24 months, dynamic contrast-enhanced CT, PET, and/or biopsy. Nodule size > 8 mm in HIGH RISK PATIENTS: Same as for low-risk patients.
[2016-09-11 15:59] VITALS: BP 160/100
--- NOTE | 2016-09-11 21:01 | CT SCAN REPORT ---
EXAMINATION: CT THORACIC SPINE WITHOUT CONTRAST CLINICAL INFORMATION: Assess for worsening vertebral compression fracture versus pathology. COMPARISON: X-ray of the thoracic spine 09/10/2016. CTA of the chest also obtained 09/11/2015. TECHNIQUE: A noncontrast axial CT scan of the thoracic spine was obtained. Coronal and sagittal reformatted images were generated at the acquisition workstation. DLP: 946.13 mGy-cm. FINDINGS: There is anatomic alignment of the vertebral bodies. There is multilevel narrowing of intervertebral disc height with vacuum disc changes at T6-T7 and T7-T8. There are also degenerative endplate contour changes at these levels. Vertebral body heights are maintained and there are no compression fractures. There are moderate anterior and right-sided osteophytes at T8-T9 and T9-T10. Bone mineralization appears mildly diffusely decreased. The thoracic aorta is tortuous and ectatic. The caliber is 3.7 cm at the level of T12. The ascending aorta is not included on the available images. The aorta has extensive atheromatous calcifications. There are emphysematous changes at the upper lungs bilaterally. There are subpleural blebs bilaterally in the lungs medially and bilaterally. There is a 5 mm nodule in the medial right lower lobe, demonstrated on the concurrent CTA chest. Linear opacities at the right greater than left bases are consistent with atelectasis. There are dilated thick-walled bronchi in the lower zones bilaterally, consistent with cylindrical bronchiectasis. Air is again noted within the intrahepatic ducts; a biliary stent is noted in position. The visualized retroperitoneal structures are unremarkable. There are multilevel facet arthropathic changes. No acute rib fractures are demonstrated. SPINAL LEVELS: T7-T8: There is a posterior disc protrusion with calcified annulus. There is mild distortion of the ventral thecal sac. There is no central stenosis. IMPRESSION: 1. There are no acute fractures or subluxations in the thoracic spine. 2. There is spondylosis with narrowing of intervertebral disc height, endplate degenerative contour changes at T6-T7 and T7-T8. 3. There are emphysematous and bronchiectatic changes in the lungs bilaterally. 4. The aorta is extensively calcified with increased caliber as described above. These findings were better evaluated on the postcontrast CT scan of the chest also obtained 09/11/2015.
[2016-09-11 23:56] VITALS: BP 130/66
[2016-09-12] MEDS ORDERED: LIDODERM1 EACH EXT (06:36)
[2016-09-12] MEDS ORDERED: CELEBREX100 M1 PO (06:36)
--- NOTE | 2016-09-12 06:37 | PN- Housestaff ---
SHAWN MONTES,[facility] 09/12/16 0636: Subjective Follow-up For: Rule out ACS COPD ESRD Tele-Events Since Last Visit: Sinus Rhythm Sinus Tachy 88-128 Few PAC Subjective: Mr Rodríguez was seen and examined this morning. Resting comfortably in bed. He denies any issues overnight. Patient does state however yesterday in the early evening after having supper he felt nauseous and have one episode of emesis. Patient denies any hematemesis and states that he vomited his dinner. He also felt mildly nauseous when he tried to have a coffee and maricruz crackers. Currently the paint does not complain of any nausea. Patient states that his chest pain has completely resolved. He is currently pain-free. Patient denies any fever, chills, nausea, vomiting. Patient currently scheduled to go for dialysis this morning. Review of Systems Constitutional: Reports: see HPI. Denies: chills, fever, malaise. Objective Last 24 Hrs of Vital Signs/I&O Vital Signs Date Time Temp Pulse Resp B/P Pulse O2 O2 Flow FiO2 Ox Delivery Rate 09/12 0000 Nasal 2.0L Cannula 09/11 2356 98.0 91 20 130/66 95 Nasal Cannula 09/11 2113 126 09/11 1843 93 Room Air Room Air 09/11 1600 Nasal 2.0L Cannula 09/11 1559 98.1 126 20 160/100 97 Nasal 2.0L Cannula 09/11 1319 95 Nasal 2.0L Cannula 09/11 1311 Nasal 2.0L Cannula 09/11 0800 Nasal 2.0L Cannula 09/11 0800 97.6 109 20 150/78 95 Nasal 1.5L Cannula Intake & Output 09/12 0800 09/12 0000 09/11 1600 Intake Total 140 500 500 Output Total Balance 140 500 500 Intake, IV 20 20 Intake, Oral 120 480 500 Patient 87.543 kg Weight Physical Exam General Appearance: Alert, Oriented X3, Cooperative Lymphatic: Cervical nl Cardiovascular: Normal S1, Normal S2 Lungs: Mild Expiratory Wheezing Abdomen: Normal Bowel Sounds, Soft, No Tenderness Neurological: Normal Speech, Strength at 5/5 X4 Ext Current Medications: Current Medications Sig/Zoe Start time Last Medication Dose Route Stop Time Status Admin Acetaminophen 650 MG Q6P PRN 09/10 1745 AC PO Acetaminophen/ 1 TAB ONCE ONE 09/11 1600 DC 09/11 Hydrocodone Bitart PO 09/11 1601 1635 Acetaminophen/ 1 TAB Q6P PRN 09/10 1745 AC 09/11 Hydrocodone Bitart PO 2115 Albuterol Sulfate 3 ML EVERY 4 HRS/AWAKE 09/11 1600 AC INH Albuterol Sulfate 1 PUF FOUR TIMES A DAY 09/10 1900 CAN INH Albuterol Sulfate 2 PUF DAILY PRN 09/10 1900 AC INH Atorvastatin Calcium 20 MG 1700 09/11 1700 AC 09/11 PO 1635 Budesonide/ 2 PUF BID 09/10 2200 AC 09/11 Formoterol Fumarate INH 2112 Calcium Acetate 2,001 MG WM 09/11 0800 AC 09/11 PO 1635 Celecoxib 100 MG DAILY 09/11 1745 AC 09/11 PO 2113 Diphenhydramine HCl 25 MG Q6P PRN 09/10 1745 AC IV Docusate Sodium 100 MG BID 09/10 2200 AC 09/11 PO 2113 Heparin Sodium 5,000 UNIT Q8 09/10 2200 AC 09/12 (Porcine) SC 0620 Hydromorphone HCl 2 MG .STK-MED ONE 09/11 1101 DC IM 09/11 1102 Ipratropium [place] 2.5 ML FOUR TIMES A DAY 09/11 1800 AC INH Ipratropium [place] 1 ML FOUR TIMES A DAY 09/11 1000 DC INH Lidocaine 1 PAT 0600 09/11 0600 AC 09/12 EXT 0621 Metoprolol Succinate 37.5 MG DAILY 09/11 1000 DC PO Metoprolol Succinate 37.5 MG 2200 09/11 0100 AC 09/11 PO 2113 Morphine Sulfate 2 MG Q4P PRN 09/10 1745 AC 09/11 IV 0329 Multivitamins 1 TAB DAILY 09/11 1000 AC 09/11 PO 0927 Omeprazole 40 MG DAILY AC 09/11 0700 AC 09/12 PO 0620 Patient Medication 1 ED .STK-MED ONE 09/11 1358 DC Teaching ED 09/11 1359 Polyethylene Glycol 17 GM AT BEDTIME 09/10 2200 AC PO Pregabalin 25 MG ONCE ONE 09/11 1130 DC PO 09/11 1131 Prochlorperazine 10 MG Q6P PRN 09/10 1745 AC IV Roflumilast 500 MCG DAILY 09/11 1000 CAN PO Roflumilast 500 MCG DAILY 09/11 1000 AC 09/11 PO 0928 Last 24 Hrs of Lab/Jesus Results Last 24 Hrs of Labs/Mics: Laboratory Tests 09/12/16 0645: Sodium Pending, Potassium Pending, Chloride Pending, Carbon Dioxide Pending, Anion Gap Pending, BUN Pending, Creatinine Pending, BUN/Creatinine Ratio Pending 09/11/16 1340: ESR Westergren 60 H Orders Radiology Findings: SERVICE DATE: 09/11/16- EXAM TYPE: CAT - CT THOR SPINE WO IV CONTRAST EXAMINATION: CT THORACIC SPINE WITHOUT CONTRAST CLINICAL INFORMATION: Assess for worsening vertebral compression fracture versus pathology. COMPARISON: X-ray of the thoracic spine 09/10/2016. CTA of the chest also obtained 09/11/2015. TECHNIQUE: A noncontrast axial CT scan of the thoracic spine was obtained. Coronal and sagittal reformatted images were generated at the acquisition workstation. DLP: 946.13 mGy-cm. FINDINGS: There is anatomic alignment of the vertebral bodies. There is multilevel narrowing of intervertebral disc height with vacuum disc changes at T6-T7 and T7-T8. There are also degenerative endplate contour changes at these levels. Vertebral body heights are maintained and there are no compression fractures. There are moderate anterior and right-sided osteophytes at T8-T9 and T9-T10. Bone mineralization appears mildly diffusely decreased. The thoracic aorta is tortuous and ectatic. The caliber is 3.7 cm at the level of T12. The ascending aorta is not included on the available images. The aorta has extensive atheromatous calcifications. There are emphysematous changes at the upper lungs bilaterally. There are subpleural blebs bilaterally in the lungs medially and bilaterally. There is a 5 mm nodule in the medial right lower lobe, demonstrated on the concurrent CTA chest. Linear opacities at the right greater than left bases are consistent with atelectasis. There are dilated thick-walled bronchi in the lower zones bilaterally, consistent with cylindrical bronchiectasis. Air is again noted within the intrahepatic ducts; a biliary stent is noted in position. The visualized retroperitoneal structures are unremarkable. There are multilevel facet arthropathic changes. No acute rib fractures are demonstrated. SPINAL LEVELS: T7-T8: There is a posterior disc protrusion with calcified annulus. There is mild distortion of the ventral thecal sac. There is no central stenosis. IMPRESSION: 1. There are no acute fractures or subluxations in the thoracic spine. 2. There is spondylosis with narrowing of intervertebral disc height, endplate degenerative contour changes at T6-T7 and T7-T8. 3. There are emphysematous and bronchiectatic changes in the lungs bilaterally. 4. The aorta is extensively calcified with increased caliber as described above. These findings were better evaluated on the postcontrast CT scan of the chest also obtained 09/11/2015. DICTATED BY: KENDELL RAYMOND MD DATE/TIME DICTATED:09/11/162000 LACE BURN OUT TENDER:JANIE DATE/TIME TRANSCRIBED:09/11/162000 CONFIDENTIAL, DO NOT COPY WITHOUT APPROPRIATE AUTHORIZATION. <Electronically signed in Other Vendor System> SIGNED BY: KENDELL RAYMOND MD 09/11/16 0381 Assessment/Plan Assessment: This is a 71-year-old gentleman with past medical history of COPD and ESRD on hemodialysis 3 times a week who was admitted to [facility] for worsening chest pain. #Chest pain, rule out acute coronary syndrome versus musculoskeletal versus thoracic aneurysm Admit patient to telemetry service Serial EKGs and troponins. Initial troponin 0.08. Consider echo cardiogram in a.m. Should patient become hemodynamically compromise consider ruling out aortic dissection. X-ray of ribs bilaterally rule out rib fracture. Patient denies any history of trauma. Other differentials may include pneumonia and costochondritis. CTA of chest ordered today to rule out aortic dissection. No evidence of aortic dissection. CT thoracic spine without IV contrast. Continue Vicodin and Tylenol for pain medication. Avoid narcotics medication due to potential side effects and or dependence. ESR: 60 Patient may need ERICKA as an outpatient. #Acute on chronic hypercarbic respiratory failure 2/2 COPD exacerbation. Patient does have history of COPD and is on home oxygen 2 L. Chest x-ray to rule out pneumonia IV Solu-Medrol and IV azithromycin for anti-inflammatory properties. Albuterol, Symbicort and ipratropium. Considered ABG in a.m. to rule out obstructive sleep apnea. TRC nebulization treatments Incentive spirometer Sputum cultures LRC Continue BiPAP. Patient was supposed to get machine from home. #End-stage renal disease Patient will need to continue Hemodialysis next Saturday consider nephrology consult in a.m. BEP in am. Monitor creatinine daily. Creatinine on admission 6.6. Patient underwent dialysis today. Calcium acetate 2001 MG with meals. #Hypertension Continue antihypertensives, blood pressure this a.m. 152/80 #Chronic back pain Continue Vicodin and Tylenol for pain medication. Avoid narcotics medication due to potential side effects and or dependence. Lidocaine Patch Celebrex 100 mg daily. PT consult in a.m. #Constipation Dulcolax and senna when necessary. Patient reports that opiates can periodically caused constipation. #Diet Renal dialysis #DVT prophylaxis Heparin #Code full code Problem List: 1. Saccular aneurysm 2. Chronic renal failure 3. Atherosclerosis of aorta 4. Respiratory acidosis 5. COPD (chronic obstructive pulmonary disease) 6. ESRD (end stage renal disease) Pain Ratin Pain Location: Patient is pain free Pain Goal: Remain pain free Pain Plan: Vicodin and Tylenol PRN Tomorrow's Labs & Rationales: BRUCE TODD MD 09/12/16 2344: Attending MD Review Statement Attending Statement Attending MD Statement: examined this patient, discuss w/resident/PA/TICKET SALES SUPERVISOR, agreed w/resident/PA/TICKET SALES SUPERVISOR, reviewed EMR data (avail), discussed with nursing, discussed with case mgmt, reviewed images, amended to note Attending Assessment/Plan: The patient had been converted to an admission due to increased back and right rib pain requiring pain management. CT of thoracic spine was done. The patient was dialyzed. Pain now under better control. Discussed with resident and agree with plan of care.
[2016-09-12] MEDS ORDERED: HYDROCODON-ACE1 EAC2 PO (07:06)
[2016-09-12 08:00] VITALS: BP 152/80
--- NOTE | 2016-09-12 08:41 | PN- Nephrology ---
Assessment/Plan Assessment: 1. ESRD: HD in progress - UF 3 liters as BP allows 2. Hyperkalemia; correct w HD 3. CP/rib pain: prob musculosketal - no evidence for dissection; improving Suggestion: 1. continue Celebrex 2. next HD Sat --> can do as outpt ? discharge plan Subjective Subjective: Pain better this morning after starting celebrex last evening No SOB CTA no dissection Objective Vital Signs and I&Os Vital Signs Date Time Temp Pulse Resp B/P Pulse O2 O2 Flow FiO2 Ox Delivery Rate 09/12 799 Nasal 2.0L Cannula 09/12 08 98.5 118 20 152/80 95 Nasal Cannula 09/12 0000 Nasal 2.0L Cannula 09/11 2356 98.0 91 20 130/66 95 Nasal Cannula 09/11 2113 126 09/11 1843 93 Room Air Room Air 09/11 1600 Nasal 2.0L Cannula 09/11 1559 98.1 126 20 160/100 97 Nasal 2.0L Cannula 09/11 1319 95 Nasal 2.0L Cannula 09/11 1311 Nasal 2.0L Cannula Intake & Output 09/12 1600 09/12 0400 09/11 1600 09/11 0400 09/10 1600 09/10 0400 Intake Total 140 500 720 300 Output Total Balance 140 500 720 300 Intake, IV 20 20 Intake, Oral 120 480 720 300 Patient 193 lb 194 lb 192 lb Weight Physical Exam Head: atraumatic, normal appearance Ears, Nose, Throat: normal ENT inspection Neck: normal inspection Respiratory: lungs clear, tender R ant ribs to palpaption Cardiovascular: regular rate/rhythm, friction rub (none) Abdomen: soft, non-tender Extremities: no edema Current Medications: Current Medications Sig/Zoe Start time Last Medication Dose Route Stop Time Status Admin Acetaminophen 650 MG Q6P PRN 09/10 1745 AC PO Acetaminophen/ 1 TAB ONCE ONE 09/11 1600 DC 09/11 Hydrocodone Bitart PO 09/11 1601 1635 Acetaminophen/ 1 TAB Q6P PRN 09/10 1745 AC 09/11 Hydrocodone Bitart PO 2115 Albuterol Sulfate 3 ML EVERY 4 HRS/AWAKE 09/11 1600 AC INH Albuterol Sulfate 2 PUF DAILY PRN 09/10 1900 AC INH Atorvastatin Calcium 20 MG 1700 09/11 1700 AC 09/11 PO 1635 Budesonide/ 2 PUF BID 09/10 2199 AC 09/11 Formoterol Fumarate INH 2112 Calcium Acetate 2,001 MG WM 09/11 0800 AC 09/11 PO 1635 Celecoxib 100 MG DAILY 09/11 174 AC 09/11 PO 211 Diphenhydramine HCl 25 MG Q6P PRN 09/10 1745 AC IV Docusate Sodium 100 MG BID 09/10 2199 AC 09/11 PO 211 Epoetin Ryan 2,000 UNIT Saturday .. 09/12 829 AC IV Epoetin Ryan 3,000 UNIT Saturday .. 09/12 829 AC IV Heparin Sodium 5,000 UNIT Q8 09/10 2199 AC 09/12 (Porcine) SC 0620 Hydromorphone HCl 2 MG .STK-MED ONE 09/11 1101 DC IM 09/11 1102 Ipratropium [place] 2.5 ML FOUR TIMES A DAY 09/11 1800 AC INH Ipratropium [place] 1 ML FOUR TIMES A DAY 09/11 1000 DC INH Lidocaine 1 PAT 0600 09/11 0600 AC 09/12 EXT 0621 Metoprolol Succinate 37.5 MG DAILY 09/11 1000 DC PO Metoprolol Succinate 37.5 MG 09/11 0100 AC 09/11 PO 2113 Morphine Sulfate 2 MG Q4P PRN 09/10 1745 AC 09/11 IV 0329 Multivitamins 1 TAB DAILY 09/11 1000 AC 09/11 PO 0927 Omeprazole 40 MG DAILY AC 09/11 0700 AC 09/12 PO 0620 Patient Medication 1 ED .STK-MED ONE 09/11 1358 DC Teaching ED 09/11 1359 Polyethylene Glycol 17 GM AT BEDTIME 09/10 2199 AC PO Pregabalin 25 MG ONCE ONE 09/11 1130 DC PO 09/11 1131 Prochlorperazine 10 MG Q6P PRN 09/10 1745 AC IV Roflumilast 500 MCG DAILY 09/11 1000 CAN PO Roflumilast 500 MCG DAILY 09/11 1000 AC 09/11 PO 0928 Results Pertinent Lab Results: Laboratory Tests 09/12 09/12 09/11 09/11 09/10 0758 0645 1340 0643 1940 Chemistry Sodium (137 - 145 mmol/L) Pending 131 L 137 Potassium (3.5 - 5.1 mmol/L) Pending 6.1 *H 5.3 H Chloride (98 - 107 mmol/L) Pending 86 L 90 L Carbon Dioxide (22 - 30 mmol/L) Pending 25 31 H Anion Gap (5 - 16) Pending 19 H 16 BUN (9 - 20 mg/dL) Pending 74 H 50 H Creatinine (0.7 - 1.2 mg/dL) Pending 8.1 *H 6.6 *H Estimated GFR (>60 ml/min) 7 L 8 L BUN/Creatinine Ratio (7 - 25 %) Pending 9.1 7.6 Calcium Pending Phosphorus Pending Magnesium (1.6 - 2.3 mg/dL) Pending 1.9 Troponin I (<0.11 ng/ml) 0.08 Albumin Pending Hematology CBC w Diff Pending WBC Pending RBC Pending Hgb Pending Hct Pending MCV Pending MCH Pending RDW Pending Plt Count Pending MPV Pending PUBS MCHC Pending ESR Westergren (0 - 10 MM) 60 H Serology Hep Bs Antigen Pending Hep Bs Antibody Pending 09/10 1300 Chemistry Sodium (137 - 145 mmol/L) 141 Potassium (3.5 - 5.1 mmol/L) 4.9 Chloride (98 - 107 mmol/L) 92 L Carbon Dioxide (22 - 30 mmol/L) 30 Anion Gap (5 - 16) 19 H BUN (9 - 20 mg/dL) 33 H Creatinine (0.7 - 1.2 mg/dL) 4.5 H Estimated GFR (>60 ml/min) 13 L BUN/Creatinine Ratio (7 - 25 %) 7.3 Glucose (65 - 99 mg/dL) 105 H Calcium (8.4 - 10.2 mg/dL) 9.1 Total Bilirubin (0.2 - 1.3 mg/dL) 0.6 AST (17 - 59 U/L) 21 ALT (21 - 72 U/L) 28 Alkaline Phosphatase (< 127 U/L) 60 Troponin I (<0.11 ng/ml) 0.08 [id number] Pept (<125 pg/mL) 74686 H Total Protein (6.3 - 8.2 g/dL) 6.9 Albumin (3.5 - 5.0 g/dL) 4.2 Globulin (1.9 - 4.2 gm/dL) 2.7 Albumin/Globulin Ratio (1.1 - 2.2 %) 1.6 Hematology CBC w Diff NO MAN DIFF REQ WBC (4.8 - 10.8 /CUMM) 8.0 RBC (4.70 - 6.10 /CUMM) 3.80 L Hgb (14.0 - 18.0 G/DL) 11.2 L Hct (42 - 52 %) 33.6 L MCV (80.0 - 94.0 FL) 88.4 MCH (27.0 - 31.0 PG) 29.4 RDW (11.5 - 14.5 %) 14.8 H Plt Count (130 - 400 /CUMM) 133 MPV (7.4 - 10.4 FL) 10.3 Gran % (42.2 - 75.2 %) 81.4 H Lymphocytes % (20.5 - 51.1 %) 8.6 L Monocytes % (1.7 - 9.3 %) 7.2 Eosinophils % (0 - 5 %) 2.2 Basophils % (0.0 - 2.0 %) 0.6 Absolute Granulocytes (1.4 - 6.5 /CUMM) 6.5 Absolute Lymphocytes (1.2 - 3.4 /CUMM) 0.7 L Absolute Monocytes (0.10 - 0.60 /CUMM) 0.6 Absolute Eosinophils (0.0 - 0.7 /CUMM) 0.2 Absolute Basophils (0.0 - 0.2 /CUMM) 0 PUBS MCHC (33.0 - 37.0 G/DL) 33.2 Imaging/Other Studies: CTA: 1. No evidence of aortic dissection. The ascending thoracic aorta is mildly aneurysmal measuring 4.1 x 4.1 cm not significantly changed. 2. Extensive calcified and noncalcified atherosclerotic plaque throughout the descending thoracic aorta with multiple areas of ulcerated plaque throughout the entire descending aorta, resulting in multiple small saccular aneurysms. The overall appearance is not significantly changed from prior. There is no evidence of aortic dissection or intramural hematoma. 3. Extensive emphysematous change with underlying bronchiectasis in the lung bases, right greater than left. 4.Pulmonary nodules measuring up to 6 mm in the right lower lobe are similar to prior. Continued imaging surveillance is recommended. 5. Similar pneumobilia with common bile duct stent partially imaged.
[2016-09-12 08:49] LABS: ABSOLUTE BASOPHIL COUNT 0 /CUMM (0.0-0.2); ABSOLUTE EOSINOPHIL COUNT 0.2 /CUMM (0.0-0.7); ABSOLUTE GRANULOCYTE CT 5.6 /CUMM (1.4-6.5); ABSOLUTE LYMPH COUNT 0.8 /CUMM (1.2-3.4); ABSOLUTE MONOCYTE COUNT 0.6 /CUMM (0.10-0.60); BASOPHIL % 0.4 % (0.0-2.0); EOSINOPHIL % 3.2 % (0-5); GRANULOCYTE % 77.2 % (42.2-75.2); HEMATOCRIT 31.4 % (42-52); MEAN CORPUSCULAR HGB 29.4 PG (27.0-31.0); MEAN CORPUSCULAR HGB CONC 32.8 G/DL (33.0-37.0); MEAN CORPUSCULAR VOLUME 89.7 FL (80.0-94.0); MEAN PLATELET VOLUME 11.9 FL (7.4-10.4); RBC DISTRIBUTION WIDTH 14.5 % (11.5-14.5); WHITE BLOOD CELL COUNT 7.3 /CUMM (4.8-10.8)
[2016-09-12 09:07] LABS: PLATELET COUNT 105 /CUMM (130-400)
--- NOTE | 2016-09-12 13:04 | PN- Pulmonary ---
Subjective HPI/Critical Care Issues: Mr Rodríguez was seen and examined this morning. Resting comfortably in bed. He denies any issues overnight. Patient does state however yesterday in the early evening after having supper he felt nauseous and have one episode of emesis. Patient denies any hematemesis and states that he vomited his dinner. He also felt mildly nauseous when he tried to have a coffee and maricruz crackers. Currently the paint does not complain of any nausea. Patient states that his chest pain has completely resolved. He is currently pain-free. Patient denies any fever, chills, nausea, vomiting. Patient currently scheduled to go for dialysis this morning. Review of Systems Constitutional: Reports: see HPI. Denies: chills, fever, malaise. Objective Current Medications: Current Medications Sig/Zoe Start time Last Medication Dose Route Stop Time Status Admin Acetaminophen 650 MG Q6P PRN 09/10 1745 AC PO Acetaminophen/ 1 TAB ONCE ONE 09/11 1600 DC 09/11 Hydrocodone Bitart PO 09/11 1601 1635 Acetaminophen/ 1 TAB Q6P PRN 09/10 1745 AC 09/11 Hydrocodone Bitart PO 2115 Albuterol Sulfate 3 ML EVERY 4 HRS/AWAKE 09/11 1600 AC INH Albuterol Sulfate 2 PUF DAILY PRN 09/10 1900 AC INH Atorvastatin Calcium 20 MG 1700 09/11 1700 AC 09/11 PO 1635 Budesonide/ 2 PUF BID 09/10 2200 AC 09/11 Formoterol Fumarate INH 2112 Calcium Acetate 2,001 MG WM 09/11 0800 AC 09/11 PO 1635 Celecoxib 100 MG DAILY 09/11 1745 AC 09/11 PO 2113 Diphenhydramine HCl 25 MG Q6P PRN 09/10 1745 AC IV Docusate Sodium 100 MG BID 09/10 220 AC 09/11 PO 2113 Epoetin Ryan 2,000 UNIT Saturday .. 09/12 08 AC IV Epoetin Ryan 3,000 UNIT Saturday .. 09/12 08 AC IV Heparin Sodium 5,000 UNIT Q8 09/10 220 AC 09/12 (Porcine) SC 0620 Ipratropium [place] 2.5 ML FOUR TIMES A DAY 09/11 1800 AC INH Ipratropium [place] 1 ML FOUR TIMES A DAY 09/11 1000 DC INH Lidocaine 1 PAT 0600 09/11 0600 AC 09/12 EXT 0621 Metoprolol Succinate 37.5 MG 2200 09/11 0100 AC 09/11 PO 2113 Morphine Sulfate 2 MG Q4P PRN 09/10 1745 AC 09/11 IV 0329 Multivitamins 1 TAB DAILY 09/11 1000 AC 09/11 PO 0927 Omeprazole 40 MG DAILY AC 09/11 0700 AC 09/12 PO 0620 Patient Medication 1 ED .[facility]-MED ONE 09/11 1358 MO Teaching ED 09/11 1359 Polyethylene Glycol 17 GM AT BEDTIME 09/10 2200 AC PO Prochlorperazine 10 MG Q6P PRN 09/10 1745 AC IV Roflumilast 500 MCG DAILY 09/11 1000 AC 09/11 PO 0928 Vital Signs & I&O Last 24 Hrs of Vitals and I&O: Vital Signs Date Time Temp Pulse Resp B/P Pulse O2 O2 Flow FiO2 Ox Delivery Rate 09/12 0800 Nasal 2.0L Cannula 09/12 0800 98.5 118 20 152/80 95 Nasal Cannula 09/12 0000 Nasal 2.0L Cannula 09/11 2356 98.0 91 20 130/66 95 Nasal Cannula 09/11 2113 126 09/11 1843 93 Room Air Room Air 09/11 1600 Nasal 2.0L Cannula 09/11 1559 98.1 126 20 160/100 97 Nasal 2.0L Cannula 09/11 1319 95 Nasal 2.0L Cannula 09/11 1311 Nasal 2.0L Cannula Intake & Output 09/12 1600 09/12 0800 09/12 0000 Intake Total 140 500 Output Total Balance 140 500 Intake, IV 20 20 Intake, Oral 120 480 Patient 193 lb Weight Impression/Plan Impression/Plan Impression/Plan: CT 09/18 IMPRESSION: 1. No evidence of aortic dissection. The ascending thoracic aorta is mildly aneurysmal measuring 4.1 x 4.1 cm not significantly changed. 2. Extensive calcified and noncalcified atherosclerotic plaque throughout the descending thoracic aorta with multiple areas of ulcerated plaque throughout the entire descending aorta, resulting in multiple small saccular aneurysms. The overall appearance is not significantly changed from prior. There is no evidence of aortic dissection or intramural hematoma. 3. Extensive emphysematous change with underlying bronchiectasis in the lung bases, right greater than left. 4.Pulmonary nodules measuring up to 6 mm in the right lower lobe are similar to prior. Continued imaging surveillance is recommended. 5. Similar pneumobilia with common bile duct stent partially imaged. IMPRESSION This is a gentleman with end-stage COPD on oxygen, recurrent exacerbation on prednisone, Bronchiectasis due to recurrent infections, dietary noncompliance, ESRD, mild bilateral bronchiectasis, morbid obesity with obstructive sleep apnea , hypertension, previous hyperkalemia, cor pulmonale, on CPAP at home, previous hepatic disease with splenomegaly, moderate to severe pulmonary hypertension, myelodysplastic process, now comes in with * Improving Radicular pain with spine tenderness suggestive of radiculopathy * Sig copd with no evidence of exacerbation * Sig copd with Previous bronchiectasis. 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
--- NOTE | 2016-09-12 13:26 | PN- Cardiology ---
Subjective Subjective: Clinically improved. No current chest discomfort Objective Vital Signs and I&Os Vital Signs Date Time Temp Pulse Resp B/P Pulse O2 O2 Flow FiO2 Ox Delivery Rate 09/12 08 Nasal 2.0L Cannula 09/12 08 98.5 118 20 152/80 95 Nasal Cannula 09/12 0000 Nasal 2.0L Cannula 09/11 2356 98.0 91 20 130/66 95 Nasal Cannula 09/11 2113 126 09/11 1843 93 Room Air Room Air 09/11 1600 Nasal 2.0L Cannula 09/11 1559 98.1 126 20 160/100 97 Nasal 2.0L Cannula Intake & Output 09/12 1600 09/12 0800 09/12 0000 09/11 1600 09/11 0800 09/11 0000 Intake Total 140 500 500 220 300 Output Total Balance 140 500 500 220 300 Intake, IV 20 20 Intake, Oral 120 480 500 220 300 Patient 189 lb 193 lb 194 lb Weight Current Medications: Current Medications Sig/Zoe Start time Last Medication Dose Route Stop Time Status Admin Acetaminophen 650 MG Q6P PRN 09/10 1745 AC PO Acetaminophen/ 1 TAB ONCE ONE 09/11 1600 DC 09/11 Hydrocodone Bitart PO 09/11 1601 1635 Acetaminophen/ 1 TAB Q6P PRN 09/10 1745 AC 09/11 Hydrocodone Bitart PO 2115 Albuterol Sulfate 3 ML Q4P PRN 09/12 1315 AC INH Albuterol Sulfate 3 ML EVERY 4 HRS/AWAKE 09/11 1600 DC INH Albuterol Sulfate 2 PUF DAILY PRN 09/10 1900 AC INH Atorvastatin Calcium 20 MG 1700 09/11 1700 AC 09/11 PO 1635 Budesonide/ 2 PUF BID 09/10 220 AC 09/11 Formoterol Fumarate INH 2112 Calcium Acetate 2,001 MG WM 09/11 0800 AC 09/11 PO 1635 Celecoxib 100 MG DAILY 09/11 1745 AC 09/11 PO 2113 Diphenhydramine HCl 25 MG Q6P PRN 09/10 1745 AC IV Docusate Sodium 100 MG BID 09/10 2199 AC 09/11 PO 2113 Epoetin Ryan 2,000 UNIT Saturday .. 09/12 829 AC IV Epoetin Ryan 3,000 UNIT Saturday .. 09/12 829 AC IV Heparin Sodium 5,000 UNIT Q8 09/10 2199 AC 09/12 (Porcine) SC 0620 Ipratropium Tanana 2.5 ML FOUR TIMES A DAY 09/11 1800 DC INH Ipratropium Tanana 1 ML FOUR TIMES A DAY 09/11 1000 DC INH Lidocaine 1 PAT 0600 09/11 0600 AC 09/12 EXT 0621 Metoprolol Succinate 37.5 MG 2200 09/11 0100 AC 09/11 PO 2113 Morphine Sulfate 2 MG Q4P PRN 09/10 1745 AC 09/11 IV 0329 Multivitamins 1 TAB DAILY 09/11 1000 AC 09/11 PO 0927 Omeprazole 40 MG DAILY AC 09/11 0700 AC 09/12 PO 0620 Patient Medication 1 ED .STK-MED ONE 09/11 1358 DC Teaching ED 09/11 1359 Polyethylene Glycol 17 GM AT BEDTIME 09/10 2199 AC PO Prochlorperazine 10 MG Q6P PRN 09/10 1745 AC IV Roflumilast 500 MCG DAILY 09/11 1000 AC 09/11 PO 0928 Results Last 48 Hrs of Labs/Mics: Laboratory Tests 09/12/16 1115: BUN Pending 09/12/16 0758: Anion Gap 20 H, Estimated GFR 6 L, BUN/Creatinine Ratio 8.9, Calcium 9.1, Phosphorus 8.0 H, Magnesium 1.9, Albumin 3.7, CBC w Diff NO MAN DIFF REQ, RBC 3.50 L, MCV 89.7, MCH 29.4, RDW 14.5, MPV 11.9 H, Gran % 77.2 H, Lymphocytes % 11.3 L, Monocytes % 7.9, Eosinophils % 3.2, Basophils % 0.4, Absolute Granulocytes 5.6, Absolute Lymphocytes 0.8 L, Absolute Monocytes 0.6, Absolute Eosinophils 0.2, Absolute Basophils 0, PUBS MCHC 32.8 L, Hep Bs Antigen NONREACTIVE, Hep Bs Antibody NONREACTIVE 09/12/16 0645: Anion Gap 19 H, Estimated GFR 7 L, BUN/Creatinine Ratio 9.1 09/11/16 1340: ESR Westergren 60 H 09/11/16 0643: Anion Gap 16, Estimated GFR 8 L, BUN/Creatinine Ratio 7.6, Magnesium 1.9 09/10/16 1940: Troponin I 0.08 Assessment/Plan Assessment/Plan Assessment: 1. CAD, status post coronary stent 2. COPD 3. Hypertension 4. End-stage renal disease 5. 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 Chest pain, ruled out for mitral infarction. Concerning for possible aortic dissection given the history of saccular aneurysms Recommendations: - Doing better with no symptoms at present. - Reviewed chest CT which shows diffuse severe aortic atheromatous plaque similar to previous findings on CT and ERICKA. There are multiple areas of plaque ulceration with areas of penetrating ulcer but no obvious saccular aneurysm. - Discharge pending - Outpatient followup with me - Pharmacologic nuclear stress test as outpatient. - Outpatient followup with Dr. Merritt recommended. Continue telemetry? No
--- NOTE | 2016-09-12 17:15 | Discharge Summary ---
Visit Information Visit Dates Admission Date: 09/11/16 Discharge Date: 09/12/16 Hospital Course Course Attending Physician: BRUCE HUANG MD Primary Care Physician: SARITA MONTES,CYNDI Barron Hospital Course: Mr Rodríguez is a 71-year-old male with past medical history significant for hypertension, COPD on 2 L oxygen at home, obstructive sleep apnea on CPAP at night, coronary artery disease status post stenting of right coronary artery 11 years back, pulmonary hypertension, end-stage renal disease on hemodialysis (M,W ,F), fistula on LUE and cholecystectomy who presented at the ED on 09/10/2016 complaining of worsening chest pain which radiated to his back. #Chest pain likely due to worsening spondylosis and radiculopathy. The patient initially admitted to the telemetry service where serial EKGs and troponins were trended. These did not revel any acute issues or revel cardiac ischemia. On day two of admission a CTA was done to rule out an Aortic Disection. Although the patient denied any evidence of truama, at the time of admission, X-ray of ribs bilaterally ruled out displaced rib fractures. Patient was continued Vicodin, a Lidocaine patch and Celebrex 100 mg daily for pain control. he was discharged home on these medications. # Significant COPD. No Evidence of Exacerbation. Patient does have history of COPD and is on home oxygen 2 L. A Chest X-Ray was done at the time of admission, showed no evidence of any acute pulmonary process. Patient was encouraged to continue CPAP at night. #End-stage renal disease The patient is scheduled for hemodialysis on Saturday, Saturday, Saturday. While the patient was admitted he underwent one treatment of hemodialysis. His lab values were monitored daily basis. The patient was also begun on: Calcium acetate 2001 MG with meals. #Hypertension Patient was continued on his home antihypertensives blood pressure was well- controlled while admitted. Allergies: Coded Allergies: venom-honey bee (bee venom (honey bee)) (Severe, ANAPHYLAXIS 02/13/16) Penicillins (Intermediate, RASH 02/13/16) Pertinent Lab Results: SERVICE DATE: 09/11/16-1156 EXAM TYPE: CAT - CTA CHEST-AORTIC DISSECTION EXAMINATION: CT ANGIOGRAM CHEST CLINICAL INFORMATION: Chest, back pain, rule out aortic dissection. COMPARISON: Chest radiograph 09/10/2016. TECHNIQUE: Multiple axial images were obtained through the chest after the administration of 95 mL of intravenous Optiray 320. Images were reviewed on a dedicated 3-D workstation. FINDINGS: VASCULAR: There is no evidence of aortic dissection. The ascending thoracic aorta is mildly aneurysmal, measuring 4.1 x 4.1 cm at the level of the right pulmonary artery. There is severe calcified and noncalcified atherosclerotic plaque throughout the thoracic aorta, most severe in the descending thoracic aorta, where there are several areas of ulcerated plaque, for example see image 183/483, sagittal image 54/121 demonstrates the multifocal nature of these ulcerated plaques. The appearance is not significantly changed compared with the prior exam. There is a 3-vessel aortic arch. There is moderate atherosclerotic plaque at the origin of the great vessels with mild narrowing of the vessels at the origin. The visualized subclavian arteries, vertebral arteries, and carotid arteries are unremarkable. There is a partially visualized venous stent in the cephalic arch on the left. The pulmonary arteries and pulmonary veins are normal. There is mild narrowing at the takeoff of the celiac artery. NONVASCULAR: LUNGS: There are moderate to severe emphysematous changes throughout both lungs with prominent lower lobe bronchiectasis. There is subpleural cystic change in both lungs, most prominent along the mediastinal borders. There is a mosaic attenuation throughout the lungs, consistent with small airways disease. Scattered subcentimeter nodular opacities appear similar to prior; for example, in the right lower lobe there is a 6 mm nodular opacity (255/483), in the right upper lobe there is a subpleural 3 mm nodular opacity (107/483), and in the right lung apex there is a 3 mm nodular opacity (53/483). MEDIASTINUM: There are subcentimeter mediastinal lymph nodes. There are coronary artery calcifications. No pericardial effusion. PLEURA: There is no pleural effusion. No pleural mass or thickening. AXILLA: No lymphadenopathy. UPPER ABDOMEN: There is predominantly left-sided pneumobilia with a partially visualized common bile duct stent in place. OSSEOUS STRUCTURES: There are old healed anterior rib fractures bilaterally. No destructive bony lesions. IMPRESSION: 1. No evidence of aortic dissection. The ascending thoracic aorta is mildly aneurysmal measuring 4.1 x 4.1 cm not significantly changed. 2. Extensive calcified and noncalcified atherosclerotic plaque throughout the descending thoracic aorta with multiple areas of ulcerated plaque throughout the entire descending aorta, resulting in multiple small saccular aneurysms. The overall appearance is not significantly changed from prior. There is no evidence of aortic dissection or intramural hematoma. 3. Extensive emphysematous change with underlying bronchiectasis in the lung bases, right greater than left. 4.Pulmonary nodules measuring up to 6 mm in the right lower lobe are similar to prior. Continued imaging surveillance is recommended. 5. Similar pneumobilia with common bile duct stent partially imaged. Various management parameters for solitary pulmonary nodules are in the literature. According to the Fleischner Society, recommendations for pulmonary nodules are as follows: Nodule size < or = to 4 mm in LOW RISK PATIENTS: No follow up needed. Nodule size < or = to 4 mm in HIGH RISK PATIENTS: Follow up CT at 12 months; if unchanged, no further follow up. Nodule size > 4-6 mm in LOW RISK PATIENTS: Follow up CT at 12 months; if unchanged, no further follow up. Nodule size > 4-6 mm in HIGH RISK PATIENTS: Initial follow up CT at 6-12 months, then at 18-24 months if no change. Nodule size > 6-8 mm in LOW RISK PATIENTS: Initial follow up CT at 6-12 months, then at 18-24 months if no change. Nodule size > 6-8 mm in HIGH RISK PATIENTS: Initial follow up CT at 3-6 months, then 9-12 months and 24 months if no change. Nodule size > 8 mm in LOW RISK PATIENTS: Follow up CT at around 3, 9, and 24 months, dynamic contrast-enhanced CT, PET, and/or biopsy. Nodule size > 8 mm in HIGH RISK PATIENTS: Same as for low-risk patients. DICTATED BY: ANKUR MOE MD SERVICE DATE: 09/11/16- EXAM TYPE: CAT - CT THOR SPINE WO IV CONTRAST EXAMINATION: CT THORACIC SPINE WITHOUT CONTRAST CLINICAL INFORMATION: Assess for worsening vertebral compression fracture versus pathology. COMPARISON: X-ray of the thoracic spine 09/10/2016. CTA of the chest also obtained 09/11/2015. TECHNIQUE: A noncontrast axial CT scan of the thoracic spine was obtained. Coronal and sagittal reformatted images were generated at the acquisition workstation. DLP: 946.13 mGy-cm. FINDINGS: There is anatomic alignment of the vertebral bodies. There is multilevel narrowing of intervertebral disc height with vacuum disc changes at T6-T7 and T7-T8. There are also degenerative endplate contour changes at these levels. Vertebral body heights are maintained and there are no compression fractures. There are moderate anterior and right-sided osteophytes at T8-T9 and T9-T10. Bone mineralization appears mildly diffusely decreased. The thoracic aorta is tortuous and ectatic. The caliber is 3.7 cm at the level of T12. The ascending aorta is not included on the available images. The aorta has extensive atheromatous calcifications. There are emphysematous changes at the upper lungs bilaterally. There are subpleural blebs bilaterally in the lungs medially and bilaterally. There is a 5 mm nodule in the medial right lower lobe, demonstrated on the concurrent CTA chest. Linear opacities at the right greater than left bases are consistent with atelectasis. There are dilated thick-walled bronchi in the lower zones bilaterally, consistent with cylindrical bronchiectasis. Air is again noted within the intrahepatic ducts; a biliary stent is noted in position. The visualized retroperitoneal structures are unremarkable. There are multilevel facet arthropathic changes. No acute rib fractures are demonstrated. SPINAL LEVELS: T7-T8: There is a posterior disc protrusion with calcified annulus. There is mild distortion of the ventral thecal sac. There is no central stenosis. IMPRESSION: 1. There are no acute fractures or subluxations in the thoracic spine. 2. There is spondylosis with narrowing of intervertebral disc height, endplate degenerative contour changes at T6-T7 and T7-T8. 3. There are emphysematous and bronchiectatic changes in the lungs bilaterally. 4. The aorta is extensively calcified with increased caliber as described above. These findings were better evaluated on the postcontrast CT scan of the chest also obtained 09/11/2015. DICTATED BY: KENDELL RAYOMND MD SERVICE DATE: 09/10/16 EXAM TYPE: RAD - XRY-RIBS UNILATERAL-RIGHT EXAMINATION: XR RIBS, RIGHT CLINICAL INFORMATION: Atypical chest wall pain. Evaluate for fracture. COMPARISON: Left rib radiographs and chest radiograph from earlier today. CT from 06/11/2016. TECHNIQUE: 3 views of the right ribs were obtained. Frontal view of the chest. FINDINGS: The lungs are well expanded. No dense consolidation, edema, or effusion. No pneumothorax. The cardiomediastinal silhouette is unchanged, with a calcified and tortuous aorta. Left subclavian vascular stent noted. Targeted right rib radiographs demonstrate no acute fracture or cortical disruption. Alignment is anatomic. IMPRESSION: No acute pulmonary findings. No suspicious right rib abnormality. DICTATED BY: HANSA TSE MD SERVICE DATE: 09/10/16 EXAM TYPE: RAD - XRY-THORACOLUMBAR SPINE EXAMINATION: XR THORACOLUMBAR SPINE CLINICAL INFORMATION: Chest wall pain. COMPARISON: CT of the chest 06/11/2016 TECHNIQUE: AP. Lateral. FINDINGS: The vertebrae have normal height and alignment. No fracture bone or destruction. Mild degenerative lipping at the anterior endplates of the thoracic vertebrae. Compared to prior study no change. A biliary stent is partially visualized in the right upper quadrant of the abdomen. IMPRESSION: No acute abnormality. Mild degenerative change of the dorsal spine. DICTATED BY: ANGLE RESTREPO MD SERVICE DATE: 09/10/16 EXAM TYPE: RAD - XRY-RIBS UNILATERAL-LEFT EXAMINATION: XR RIBS, LEFT CLINICAL INFORMATION: Chest wall pain. COMPARISON: None TECHNIQUE: 3 views of the left ribs. FINDINGS: No displaced left rib fracture or focal bone lesion. Left lung clear. No left pleural effusion or pneumothorax on the left. Vascular stents over the left shoulder and left upper arm. IMPRESSION: No displaced left rib fracture. DICTATED BY: ANGLE RESTREPO MD SERVICE DATE: 09/10/16 EXAM TYPE: RAD - XRY-PORTABLE CHEST XRAY EXAMINATION: XR PORTABLE CHEST CLINICAL INFORMATION: Shortness of breath. COMPARISON: Chest x-ray 04/10/2016. TECHNIQUE: Portable view of the chest was obtained. FINDINGS: Symmetric lung inflation. No focal consolidation, pleural effusion, or pneumothorax. Cardiac silhouette size is normal. The aorta is again noted to be tortuous in its course. A left axillary vascular stent is redemonstrated. There are no acute osseous findings. IMPRESSION: No acute pulmonary process. DICTATED BY: LUISA MUNIZ MD Disposition Summary Disposition Principal Diagnosis: Chest pain likely due to worsening spondylosis and radiculopathy. Additional Diagnosis: History of COPD, no Evidence of Exacerbation. End-stage renal disease Hypertension Discharge Disposition: home or self care Discharge Instructions General Discharge Information Code Status: Full Code Patient's Diet: Renal Dialysis Patient's Activity: As Tolerated Follow-Up Instructions/Appts: Please follow-up with your primary care physician on 09/14/2016. This is for a post hospital discharge follow-up. Please follow-up with the loading and unloading supervisor on 09/17/2016. We have provided you with a referral. Medications at Discharge Discharge Medications: Continue taking these medications: Pantoprazole Sodium (Pantoprazole Sodium) 40 MG TABLET.DR 40 Milligram ORAL DAILY Qty = 30 Calcium Acetate (Phoslo) 667 MG CAPSULE 3 Capsule ORAL WITH MEALS Comments: Last Taken:04/10 Time:12PM Nephro-Vitamins (Nephro-Angie Tablet) 0.8 MG TABLET 1 Tablet ORAL DAILY Rosuvastatin Calcium (Crestor) 5 MG TABLET 5 Milligram ORAL DAILY Qty = 30 Budesonide/Formoterol Fumarate (Symbicort 160-4.5 Mcg Inhaler) 10.2 GM HFA.AER.AD 2 Puff Inhale through mouth TWICE DAILY Qty = 1 Comments: given 09/12/16 @ 1:30 pm Albuterol Sulfate (Albuterol Sulfate) 2.5 MG/3 ML VIAL.NEB 1 Vial Inhale Solution EVERY 4 HOURS NEEDED Comments: not given in hospital Roflumilast (Daliresp) 500 MCG TABLET 1 Tablet ORAL DAILY Qty = 90 Comments: given 09/12/16 @ 1:30 pm Albuterol Sulfate (Proair Hfa) 8.5 GM HFA.AER.AD 2 Puff Inhale through mouth as needed for COPD Comments: not given in hospital Ipratropium/Albuterol Sulfate (Combivent Respimat Inhal Pioneer) 4 GM MIST.INHAL 1 PUFF Inhale through mouth 4 TIMES A DAY Comments: not given in hospital Metoprolol Succ XL (Toprol XL) 25 MG TAB 1.5 Tablet ORAL DAILY Qty = 30 Comments: given 09/11/16 @ 9:15 pm Start taking the following new medications: Celecoxib (Celebrex) 100 MG CAPSULE 100 Milligram ORAL DAILY Qty = 10 No Refills Comments: given 09/12/16 @ 1:30 pm Lidocaine (Lidoderm) 5 % ADH..PATCH 1 Patch ON SKIN 0600 Qty = 5 No Refills Comments: given 09/12/16 @ 6:20am Hydrocodone/Acetaminophen (Hydrocodon-Acetaminophen 5-325) 5 MG-325 MG TABLET 1 Tablet ORAL DAILY as needed for BACK PAIN Qty = 5 No Refills Comments: not given in hospital Copies To: LOLA MONTES,EARLINE Stallings; SARITA MONTES,CYNDI Barron; KAYLYN MONTES,SARAH Villa; ERICA MONTES,Anne LAZCANO Attending MD Review Statement Documenting Attending: BRUCE HUANG MD Other Findings: The patient was seen and discussed with house staff. Agree with the plan of care as outlined.
== END 2016-09-12 15:50 | DRG 551 ==
LOC: ERH 12:27 → ERHI 17:37 → 1NO 17:37 → ERHI 20:42 → 1NO 22:51 → ENPENDDIS 09-11 16:44 → 1NO 09-11 16:44
PROVIDERS: Internal Medicine Nephrology; Physician Assistant Medical; ADMIT Hospitalist
PROC: 5A1D00Z (ICD-10-PCS; principal; 2016-09-12)
DX: M54.14 Radiculopathy, thoracic region (principal); N18.6 End stage renal disease; E11.22 Type 2 diabetes mellitus with diabetic chronic kidney disease; I27.2 Other secondary pulmonary hypertension; I13.11 Hypertensive heart and chronic kidney disease without heart failure, with stage 5 chronic kidney disease, or end stage renal disease; J44.9 Chronic obstructive pulmonary disease, unspecified; D46.9 Myelodysplastic syndrome, unspecified; Z99.2 Dependence on renal dialysis; E66.01 Morbid (severe) obesity due to excess calories; G47.33 Obstructive sleep apnea (adult) (pediatric); E87.5 Hyperkalemia; I25.10 Atherosclerotic heart disease of native coronary artery without angina pectoris; Z95.5 Presence of coronary angioplasty implant and graft; I71.2 Thoracic aortic aneurysm, without rupture; Z99.81 Dependence on supplemental oxygen; I27.81 Cor pulmonale (chronic); Z68.30 Body mass index [BMI] 30.0-30.9, adult
CPT/HCPCS: 1NSP; 6020; 36415; 71100-LT; 71100-RT; 72080; 82436; 93005; 93010; 96374; 96376; G0378; J0780; J0885; J1200; J1644; J3490

== ENCOUNTER 2016-09-15 13:34 | Inpatient (IN) | payer OTHER ==
[~2016-09-15] VITALS: Ht 165.1 cm; Wt 81.6 kg
[~2016-09-15 13:34] MED LIST changes: +CELEBREX100 M1 PO; +HYDROCODON-ACE1 EAC2 PO; +LIDODERM1 EACH EXT
--- NOTE | 2016-09-15 13:47 | ED DYSPNEA/ASTHMA COMPLAINT ---
History of Present Illness General Chief Complaint: Dyspnea (COPD, CHF, Other) Stated Complaint: SOB Source: patient, old records, EMS Exam Limitations: no limitations Vital Signs & Intake/Output Vital Signs & Intake/Output Vital Signs Date Time Temp Pulse Resp B/P Pulse O2 O2 Flow FiO2 Ox Delivery Rate 09/18 0902 97 149/81 09/18 0829 95 Nasal 3.0L Cannula 09/18 0800 98.6 96 18 138/60 97 Nasal 3.0L Cannula 09/18 0800 96 Nasal 3.0L Cannula 09/18 0400 96 Nasal 4.0L Cannula 09/18 0315 87 94 09/18 0000 97.3 88 20 156/83 96 Nasal 4.0L Cannula 09/18 0000 96 Nasal 4.0L Cannula 09/17 2120 102 178/90 09/17 2107 97 Nasal 4.0L Cannula 09/17 1999 96 Nasal 4.0L Cannula 09/17 1600 Nasal 4.0L Cannula 09/17 1600 98.0 92 20 138/70 95 Nasal 4.0L Cannula 09/17 1346 107 140/72 09/17 1200 95 Nasal 2.0L Cannula ED Intake and Output 09/18 0000 09/17 1200 Intake Total 1106.5 393 Output Total 1999 Balance -893.5 393 Intake, IV 96.5 93 Intake, Oral 1010 300 Number 0 Bowel Movements Output, 1999 Dialysate Output, Urine 0 Patient 184 lb 188 lb Weight Allergies Coded Allergies: venom-honey bee (bee venom (honey bee)) (Severe, ANAPHYLAXIS 02/13/16) Penicillins (Intermediate, RASH 02/13/16) Reconcile Medications Albuterol Sulfate 2.5 MG/3 ML VIAL.NEB 1 Vial INH/ROSALINDA Q4P COPD (Reported) Albuterol Sulfate (Proair Hfa) 8.5 GM HFA.AER.AD 2 PUF INH PRN COPD (Reported ) Budesonide/Formoterol Fumarate (Symbicort 160-4.5 Mcg Inhaler) 10.2 GM HFA.AER.AD 2 PUF INH BID COPD Calcium Acetate (Phoslo) 667 MG CAPSULE 3 CAP PO WM KIDNEYS (Reported) Celecoxib (Celebrex) 100 MG CAPSULE 100 MG PO DAILY Anti Inflamatory Hydrocodone/Acetaminophen (Hydrocodon-Acetaminophen 5-325) 5 MG-325 MG TABLET 1 TAB PO DAILY PRN BACK PAIN Ipratropium/Albuterol Sulfate (Combivent Respimat Inhal [place]) 4 GM MIST.INHAL 1 PUFF INH 4 TIMES/DAY COPD (Reported) Lidocaine (Lidoderm) 5 % ADH..PATCH 1 PAT EXT 0600 Back Pain Metoprolol Succ XL (Toprol XL) 25 MG TAB 1.5 TAB PO DAILY atrial fibrillatoin Nephro-Vitamins (Nephro-Angie Tablet) 0.8 MG TABLET 1 TAB PO DAILY RENAL DX ( Reported) Pantoprazole Sodium 40 MG TABLET.DR 40 MG PO DAILY GERD (Reported) Roflumilast (Daliresp) 500 MCG TABLET 1 TAB PO DAILY COPD (Reported) Rosuvastatin Calcium (Crestor) 5 MG TABLET 5 MG PO DAILY HIGH CHOLESTROL ( Reported) Triage Note: PT TO ED FROM HOME AND STATES "I CAN'T BREATHE" PT STATES DIFFICULTY STARTED YESTERDAY, WORSE TODAY. PT STATES HX OF COPD, DENIES CP BUT STATES PRESSURE IN CHEST. PT BROUGHT DIRECTLY TO [facility], DR LICONA AT BEDSIDE. EKG IN PROGRESS Triage Nurses Notes Reviewed? yes HPI: Patient presents for gradually worsening severe shortness of breath. Patient denies chest pain. He has been using his home nebulizer without improvement. History is limited due to the patient's severe dyspnea. Past History Travel History Traveled to [place] past 21 day No Medical History Any Pertinent Medical History? see below for history Neurological: NONE EENT: NONE Cardiovascular: CAD, hypertension, stents, severe pulmonary hypertension Respiratory: asthma, COPD, 2L O2 DEPENDANT CPAP EACH NIGHT Gastrointestinal: NONE Hepatic: NONE, hepatic congestion, splenomegaly Renal: ESRD on HD, FISTULA ON L UPPER EXT Musculoskeletal: NONE Psychiatric: NONE Endocrine: NONE, diabetes Blood Disorders: myelodysplastic syndrome. 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 MOTHER (CKD on HD, CAD, [place], DM). FATHER (CKD on Hemodialysis, CAD, DM). MOTHER (CKD on Hemodialysis, CAD, [place]). Hx Contributory? No Review of Systems Review of Systems Constitutional: Reports: no symptoms. EENTM: Reports: no symptoms. Respiratory: Reports: see HPI. Cardiovascular: Reports: no symptoms. GI: Reports: no symptoms. Genitourinary: Reports: no symptoms. Musculoskeletal: Reports: no symptoms. Skin: Reports: no symptoms. Neurological/Psychological: Reports: no symptoms. Hematologic/Endocrine: Reports: no symptoms. Immunologic/Allergic: Reports: no symptoms. All Other Systems: Reviewed and Negative Physical Exam Physical Exam Respiratory: SEE BELOW Comments: Gen.: Well-nourished, well-developed, severe respiratory distress. Speaking in short phrases. Head: Normocephalic, atraumatic. Eyes: Normal inspection bilaterally Ears: Normal inspection bilaterally Nose: Normal inspection Throat/mouth : Moist mucosa Neck: Supple, full range of motion, no goiter Heart: Regular rate and rhythm, no murmurs rubs or gallops Lungs: Diminished breath sounds bilaterally with end expiratory wheezes in the posterior bases Chest: Nontender Back: Normal range of motion Abdomen: Soft, nontender, nondistended, normal bowel sounds Extremities: Normal range of motion grossly, equal radial pulses, no cyanosis clubbing or edema Neurologic: Cranial nerves grossly intact, speech is clear Skin: warm and dry Psychiatric: Calm, cooperative, no apparent delusions or hallucinations Core Measures ACS in differential dx? No Severe Sepsis Present: No Septic Shock Present: No Progress Differential Diagnosis: CHF, COPD, SVT, rapid atrial fibrillation, volume depletion Plan of Care: Orders Procedure Date/time Status House Staff 09/18 0755 Active ICU LAB BUNDLE 09/18 0500 Complete CBC WITHOUT DIFFERENTIAL 09/18 0500 Complete CREATINE PHOSPHOKINASE 09/17 0400 Complete AEROSOL CHG 09/17 UNK Complete OXYGEN 09/17 UNK Complete OXYGEN DAILY CHARGE 09/17 UNK Complete THERAPIST ORDERS 09/17 UNK Complete Lab Add-on Test 09/17 UNK Active AEROSOL CHG 09/16 UNK Complete OXYGEN 09/16 UNK Complete OXYGEN DAILY CHARGE 09/16 UNK Complete CONTIN. POS. AIRWAY PRESS. CHG 09/16 UNK Complete OXYGEN SETUP CHG 09/15 UNK Complete AEROSOL CHG 09/15 UNK Complete OXYGEN 09/15 UNK Complete OXYGEN TRANSPORT 09/15 UNK Complete CONTIN. POS. AIRWAY PRESS. CHG 09/15 UNK Complete Current Medications Sig/Zoe Start time Last Medication Dose Stop Time Status Admin Epoetin Ryan 6,000 UNIT MoWeFr PRN 09/17 0845 AC (Epogen Inj 3000 (DIALYSIS PATIENTS) Acetaminophen/ 1 TAB DAILY PRN 09/15 1730 AC Hydrocodone Bitart (Vicodin) Laboratory Tests 09/18/16 0530: Anion Gap 16, Estimated GFR 11 L, Glucose 92, Calcium 8.7, Phosphorus 7.6 H, Magnesium 2.1, Total Bilirubin 0.6, AST 35, ALT 29, Albumin 3.7, CBC w Diff NO MAN DIFF REQ, RBC 3.80 L, MCV 90.9, MCH 29.5, RDW 15.3 H, MPV 10.8 H, Gran % 84.8 H, Lymphocytes % 6.7 L, Monocytes % 8.4, Eosinophils % 0, Basophils % 0.1 , Absolute Granulocytes 6.0, Absolute Lymphocytes 0.5 L, Absolute Monocytes 0.6 , Absolute Eosinophils 0, Absolute Basophils 0, PUBS MCHC 32.4 L Diagnostic Imaging: Discussed w/RAD: Radiology Read. CXR Impression: PATIENT: RAFA NELSON PRESENT AGE: 71 PATIENT ACCOUNT NO: [id number] : 45 LOCATION: [facility] ORDERING PHYSICIAN: LUISA LICONA MD SERVICE DATE: 09/15/163123 EXAM TYPE: RAD - XRY-PORTABLE CHEST XRAY EXAMINATION: XR PORTABLE CHEST CLINICAL INFORMATION: Shortness of breath. History of chronic obstructive pulmonary disease. COMPARISON: CXR from 09/10/2016 TECHNIQUE: Portable view of the chest was obtained. FINDINGS: Lungs are symmetrically expanded. Bronchial wall thickening has worsened within the right lower lobe. There is linear and curvilinear opacity of atelectasis in the lateral aspect of the right lower lobe. There is no evidence of acute pulmonary edema or pleural effusion. Cardiac silhouette is enlarged. The atherosclerotic aorta is ectatic. No acute skeletal findings. IMPRESSION: In this patient with known pulmonary emphysema and bronchiectasis, the bronchial wall thickening has worsened within the right lower lobe. This suggests interval worsening of bronchitis. DICTATED BY: BOB PHAN MD DATE/TIME DICTATED:09/15/16 144 LEGAL LIBRARIAN:JANIE DATE/TIME TRANSCRIBED:01/14/17 / 1444 CONFIDENTIAL, DO NOT COPY WITHOUT APPROPRIATE AUTHORIZATION. <Electronically signed in Other Vendor System> SIGNED BY: BOB PHAN MD 09/15/16 5139 Initial ED EKG: NARROW COMPLEX TACHYCARDIA, CONSISTENT WITH svt OR SINUS TACHYCARDIA Prior EKG: changed Comments: Patient presented in severe respiratory distress with auto peeping and almost gasping respirations. He has been placed on BiPAP and he seems to be calm again. His heart rate is in the 160s with a narrow complex regular tachycardia, I am considering a supraventricular tachycardia. See how he responds to BiPAP and a nebulizer treatment. If necessary we will chemically cardiovert. 09/15/2016 2:14:47 PM patient treated with 6 mg of adenosine followed by 12 mg adenosine with cessation of his narrow complex tachycardia. 09/15/2016 2:45:05 PM although Rafa appears much more comfortable his heart rate has crept up into the upper 150s. He states that he had over 3 L taken off during his last dialysis session yesterday. I have ordered a 250 mL bolus to see if it has any impact on his tachycardia. 09/15/2016 2:52:16 PM he has been evaluated by Dr. Belle who feels that this is primarily a cardiac presentation. He recommends holding off on excessive amounts of bronchodilators and feels a diltiazem drip may be appropriate for heart rate control. 09/15/2016 4:09:51 PM patient's case discussed with press catcher. Plasma K ordered to check for possible fictitious hyperkalemia. Departure Departure Disposition: STILL A PATIENT Condition: Stable Clinical Impression Primary Impression: Rapid atrial fibrillation Secondary Impressions: COPD (chronic obstructive pulmonary disease) Qualifiers: COPD type: unspecified COPD Qualified Code: J44.9 - Chronic obstructive pulmonary disease, unspecified Hyperkalemia Renal failure, chronic Qualifiers: Chronic kidney disease stage: unspecified stage Qualified Code: N18.9 - Chronic kidney disease, unspecified SVT (supraventricular tachycardia) Referrals: SARITA MONTES,CYNDI Barron (PCP/Family) Departure Forms: Customer Survey General Discharge Information Admission Note Spoke With: YOHANA MONTES,LIANNA Documentation of Exam: Documentation of any treatments & extenuating circumstances including Concerns Regarding Discharge (functional status, medication knowledge or non-compliance, living conditions, etc.) that warrant an admission rather than observation: Patient presented in severe respiratory distress with a profound tachycardia and hypertension secondary to either an SVT or a rapid atrial fibrillation. The patient remains at this point in rapid atrial fibrillation requiring a Cardizem drip for proper rate control. This patient is also hyperkalemic as a result of chronic renal failure and his potassium levels will need to be treated and monitored accordingly. In addition the patient has end-stage emphysema. This will also require clinical monitoring and treatment with bronchodilators. Oxygen saturations should be monitored along with respiratory rate and vital signs. Patient should be placed on a continuous cardiac catheterization technologist for the possibility of dysrhythmias while on a Cardizem drip. He will also require dialysis during his hospitalization. Given the patient's age and multiple medical comorbidities I feel he will require a multiple day hospitalization. Critical Care Note Critical Care Note Critical Care Time: 75-104 min
--- NOTE | 2016-09-15 13:50 | NUR ---
PT TO ED FROM HOME AND STATES "I CAN'T BREATHE" PT STATES DIFFICULTY STARTED YESTERDAY, WORSE TODAY. PT STATES HX OF COPD, DENIES CP BUT STATES PRESSURE IN CHEST. PT BROUGHT DIRECTLY TO [facility], DR LICONA AT BEDSIDE. EKG IN PROGRESS
--- NOTE | 2016-09-15 13:50 | NUR ---
PT IN ROOM 4. ELEVATED RESP RATE, GRUNTING WITH RESPIRATIONS. UNABLE TO TOLERATE LAYING ON STRETCHER, SITTING ON EDGE OF STRETCHER. RESP RATE 32. RT CALLED AND BIPAP APPLIED. PT ABLE TO LAY ON STRETCHER WITH HOB UP WHILE ON BIPAP. DR LICONA AT BEDSIDE TO DANIELLE PT.
--- NOTE | 2016-09-15 13:56 | NUR ---
PT ON MONITOR. HEART RATE 168. APPEARS TO BE SVT. DR LICONA AWARE. HEART RATE DROPPING TO 164 SHORTLY AFTER BEING ON BIPAP. IV PLACED
--- NOTE | 2016-09-15 14:11 | NUR ---
PT WITH NO IMPROVEMENT IN SOB OR AIR HUNGER. TRYING TO PULL OFF BIPAP MASK AND SIT UP ONE EDGE OF BED. HEART RATE REMAINS AT 165. BLOOD PRESSURE 170/[address] LICONA NOTIFIED AND ADENOSINE GIVEN TWICE-HEART RATE DROPPED TRANSIENTLY 10 144 BUT NOW BACK AT 166
[2016-09-15 14:18] LABS: ABSOLUTE BASOPHIL COUNT 0.1 /CUMM (0.0-0.2); ABSOLUTE EOSINOPHIL COUNT 0.1 /CUMM (0.0-0.7); ABSOLUTE GRANULOCYTE CT 10.1 /CUMM (1.4-6.5); ABSOLUTE LYMPH COUNT 0.9 /CUMM (1.2-3.4); ABSOLUTE MONOCYTE COUNT 0.8 /CUMM (0.10-0.60); BASOPHIL % 0.4 % (0.0-2.0); EOSINOPHIL % 0.5 % (0-5); GRANULOCYTE % 84.3 % (42.2-75.2); MEAN CORPUSCULAR HGB 29.3 PG (27.0-31.0); MEAN CORPUSCULAR HGB CONC 32.5 G/DL (33.0-37.0); MEAN CORPUSCULAR VOLUME 90.4 FL (80.0-94.0); MEAN PLATELET VOLUME 11.9 FL (7.4-10.4); PLATELET COUNT 151 /CUMM (130-400); RBC DISTRIBUTION WIDTH 15.3 % (11.5-14.5); RED BLOOD CELL CT 4.02 /CUMM (4.70-6.10)
--- NOTE | 2016-09-15 14:26 | NUR ---
PT APPEARS TO BE BREATING EASIER. ASKING FOR HEAD OF BED TO BE PUT BACK AND TURNING AND LAYING ON RIGHT SIDE. FAMILY NOW AT BEDSIDE AND REPORT THAT PT STARTED TO HAVE SOB LAST NIGHT BUT IT PROGRESSED TODAY AND HE CAME TO THE ED
--- NOTE | 2016-09-15 14:27 | NUR ---
HEART RATE 156, O2 SATS 100%
--- NOTE | 2016-09-15 14:29 | NUR ---
CRITICAL TEST RESULTS [id number] JAMES NELSON 71 M TESTS AND RESULTS: CREATININ 6.6/ K+ 6.0 Results received and read back by: MORGAN MENDEZ Results received date and time: 09/15/16 1430 The following provider was notified of the results, and read the results back: DR LICONA Notified date and time: 09/15/16 at 1430
[2016-09-15 14:30] LABS: HEMATOCRIT 36.4 % (42-52)
--- NOTE | 2016-09-15 14:49 | NUR ---
DR AREVALO AT BEDSIDE. DR LICONA AT BEDSIDE
--- NOTE | 2016-09-15 14:52 | RADIOLOGY REPORT ---
EXAMINATION: XR PORTABLE CHEST CLINICAL INFORMATION: Shortness of breath. History of chronic obstructive pulmonary disease. COMPARISON: CXR from 09/10/2016 TECHNIQUE: Portable view of the chest was obtained. FINDINGS: Lungs are symmetrically expanded. Bronchial wall thickening has worsened within the right lower lobe. There is linear and curvilinear opacity of atelectasis in the lateral aspect of the right lower lobe. There is no evidence of acute pulmonary edema or pleural effusion. Cardiac silhouette is enlarged. The atherosclerotic aorta is ectatic. No acute skeletal findings. IMPRESSION: In this patient with known pulmonary emphysema and bronchiectasis, the bronchial wall thickening has worsened within the right lower lobe. This suggests interval worsening of bronchitis.
--- NOTE | 2016-09-15 15:00 | NUR ---
PT STARTED ON DILTIAZEM GTT AT 5MG /HR
--- NOTE | 2016-09-15 15:29 | Cons- Pulmonary ---
General Information and HPI Consulting Request Date of Consult: 09/15/16 Requested By: ED History of Present Illness: 71 yo M with pmh of COPD, LLUVIA requiring home oxygen, CAD s/p stent placement, HTN, pul HTN, ESRD getting dialysis every Mon/Wed/Fri, presented to the emergency department. Patient presents for gradually worsening severe shortness of breath. Patient denies chest pain. He has been using his home nebulizer without improvement. History is limited due to the patient's severe dyspnea. Required bipap for dyspnea In the ed he had sig tachy svt vs afib with RVR with heart rate more than 160 Symptoms started last night ROs could not be obtained due to bipap The patient denies any fever, chills, nausea, vomiting. He does however report orthopnea and palpitations as well as diaphoresis. The patient also reports dyspnea and dyspnea on exertion. Review of Systems Constitutional: Reports: diaphoresis, weakness. Denies: chills, fever, malaise. Cardiovascular: Reports: no sig chest pain, orthopena, palpitations. Denies: edema, syncope. Respiratory: Reports: orthopnea, short of breath. Denies: cough, hemoptysis. GI: Denies: abdominal pain, bloating, constipation, diarrhea, distention, bowel incontinence. Genitourinary: Denies: discharge, dysuria, frequency, hematuria. Musculoskeletal: Reports: back pain. Skin: Denies: change in skin color, change in hair/nails, dryness. Allergies/Medications Allergies: Coded Allergies: venom-honey bee (bee venom (honey bee)) (Severe, ANAPHYLAXIS 02/13/16) Penicillins (Intermediate, RASH 02/13/16) Home Med List: Albuterol Sulfate 2.5 MG/3 ML VIAL.NEB 1 Vial INH/ROSALINDA Q4P COPD (Reported) Albuterol Sulfate (Proair Hfa) 8.5 GM HFA.AER.AD 2 PUF INH PRN COPD (Reported ) Budesonide/Formoterol Fumarate (Symbicort 160-4.5 Mcg Inhaler) 10.2 GM HFA.AER.AD 2 PUF INH BID COPD Calcium Acetate (Phoslo) 667 MG CAPSULE 3 CAP PO WM KIDNEYS (Reported) Celecoxib (Celebrex) 100 MG CAPSULE 100 MG PO DAILY Anti Inflamatory Hydrocodone/Acetaminophen (Hydrocodon-Acetaminophen 5-325) 5 MG-325 MG TABLET 1 TAB PO DAILY PRN BACK PAIN Ipratropium/Albuterol Sulfate (Combivent Respimat Inhal [place]) 4 GM MIST.INHAL 1 PUFF INH 4 TIMES/DAY COPD (Reported) Lidocaine (Lidoderm) 5 % ADH..PATCH 1 PAT EXT 0600 Back Pain Metoprolol Succ XL (Toprol XL) 25 MG TAB 1.5 TAB PO DAILY atrial fibrillatoin Nephro-Vitamins (Nephro-Angie Tablet) 0.8 MG TABLET 1 TAB PO DAILY RENAL DX ( Reported) Pantoprazole Sodium 40 MG TABLET.DR 40 MG PO DAILY GERD (Reported) Roflumilast (Daliresp) 500 MCG TABLET 1 TAB PO DAILY COPD (Reported) Rosuvastatin Calcium (Crestor) 5 MG TABLET 5 MG PO DAILY HIGH CHOLESTROL ( Reported) Review of Systems Review of Systems Constitutional: Reports: see HPI. Past History Travel History Traveled to [place] past 21 day No Medical History Neurological: NONE EENT: NONE Cardiovascular: CAD, hypertension, stents, severe pulmonary hypertension Respiratory: asthma, COPD, 2L O2 DEPENDANT CPAP EACH NIGHT Gastrointestinal: NONE Hepatic: NONE, hepatic congestion, splenomegaly Renal: ESRD on HD, FISTULA ON L UPPER EXT Musculoskeletal: NONE Psychiatric: NONE Endocrine: NONE, diabetes Blood Disorders: myelodysplastic syndrome. 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 MOTHER (CKD on HD, CAD, [place], DM). FATHER (CKD on Hemodialysis, CAD, DM). MOTHER (CKD on Hemodialysis, CAD, [place]). Psychosocial History Who Do You Live With? spouse Services at Home: Oxygen Primary Language: Greek ETOH Use: denies use Illicit Drug Use: denies illicit drug use Functional Ability ADLs Independent: eating, toileting. Needs Assist: bathing. Ambulation: independent Exam & Diagnostic Data Last 24 Hrs of Vital Signs/I&O Vital Signs Date Time Temp Pulse Resp B/P Pulse O2 O2 Flow FiO2 Ox Delivery Rate 09/15 1446 155 28 155/86 100 BIPAP 09/15 1428 155 28 169/112 100 BIPAP 09/15 1414 BIPAP 09/15 1359 100 BIPAP 35% 09/15 1352 198/102 09/15 1350 167 99 09/15 1341 98.4 168 32 96 Nasal 3.5L Cannula Intake & Output 09/15 1600 09/15 0800 09/15 0000 Intake Total 250 Output Total Balance 250 Intake, IV 250 Patient 194 lb Weight Last 48 Hrs of Labs/Jesus: Laboratory Tests 09/15/16 1355: Anion Gap 20 H, Estimated GFR 8 L, BUN/Creatinine Ratio 5.9 L, Glucose 116 H , Calcium 9.3, Troponin I 0.08, CBC w Diff MAN DIFF ORDERED, RBC 4.02 L, MCV 90.4, MCH 29.3, RDW 15.3 H, MPV 11.9 H, Gran % 84.3 H, Lymphocytes % 7.8 L, Monocytes % 7.0, Eosinophils % 0.5, Basophils % 0.4, Absolute Granulocytes 10.1 H, Segmented Neutrophils 75, Band Neutrophils 8 H, Absolute Lymphocytes 0.9 L, Lymphocytes 9 L, Monocytes 7, Absolute Monocytes 0.8 H, Eosinophils 1, Absolute Eosinophils 0.1, Absolute Basophils 0.1, Platelet Estimate VERIFIED BY SMEAR, Polychromasia 1+, Poikilocytosis 1+, Anisocytosis 1+, Ovalocytes 1+, Stomatocytes 1+, PUBS MCHC 32.5 L Assessment/Plan Impression/Plan: CXR IMPRESSION: In this patient with known pulmonary emphysema and bronchiectasis, the bronchial wall thickening has worsened within the right lower lobe. This suggests interval worsening of bronchitis. Physical Exam Dyspneic Head: atraumatic, normal appearance ON bipap Ears, Nose, Throat: normal ENT inspection Neck: normal inspection Respiratory: lungs clear, no sig wheezing with prolonged exp tender R ant ribs to palpaption much improved since last admission Cardiovascular: regular rate/rhythm, friction rub (none) Abdomen: soft, non-tender Extremities: no edema IMPRESSION This is a gentleman with end-stage COPD on oxygen, recurrent exacerbation on prednisone, Bronchiectasis due to recurrent infections, dietary noncompliance, ESRD, mild bilateral bronchiectasis, morbid obesity with obstructive sleep apnea , hypertension, previous hyperkalemia, cor pulmonale, on CPAP at home, previous hepatic disease with splenomegaly, moderate to severe pulmonary hypertension, myelodysplastic process, now comes in with * Sig tachy svt vs afib with rvr with dyspnea due to tachy, unlikely acopde * ESRD with hyperkalemia * Recent chest pain which was Radicular pain * Sig copd with no evidence of sig exacerbation but cannot rule out till his history clears * Sig copd with Previous bronchiectasis. 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 * SIg thoracic aneurysm saccular in nature with no worsening of his aneurysm or any dissection by recent ct * Obstructive sleep apnea on CPAP compliant * Chronic steroid use * Morbid obesity with noncompliance * Previous history of biliary sepsis obstruction no no evidence suggestive of that with previous stent with pneumobilia * No recent pe with recent cta neg for pe REC Cardio eval admit to tele or icu depending on the er course Dilt drip Avoid albuterol neb Use ipratropium atc q 6 ABG to eval pco2 REnal eval for hyperkalemia and the need for dialysis CTA chest to rule out pe (not aortic arch protocol) Pt can receive contrast as he has esrd Iv steroids 60 one dose Iv ceftaz for 24 hrs till his issues clear Morphine low dose and do not use benzo Cont bipap during the day and at hs (pt on cpap at home) Sputum culture Sugar control HOld other inhalers Only if he is sig wheezing then 1.25 mg albu neb can be given (half the usual dose) prn Prog poor/guarded due to multiple issues Pt is critically ill tts50 mins Consult Acknowledgment - Thank you for your consult request.
--- NOTE | 2016-09-15 15:30 | NUR ---
PT GIVEN MORPHINE TO RELAX BREATHING. GIVEN ADDITIONAL 5MG BOLUS OF DILTIAZEM FOR PERSISTENT TACHYCARDIA
--- NOTE | 2016-09-15 15:55 | NUR ---
ADDITIONAL 5MG DILTIAZEM GIVEN IVP PER ORDER DR LICONA FOR HEART RATE 146 AFTER BEING ON DILTIAZEM GTT FOR 45 MINUTES AND AFTER GETTING 1 BOLUS OF DILTIAZEM 5MG
--- NOTE | 2016-09-15 16:24 | NUR ---
HEART RATE DOWN TO 112 AT PRESENT. HOUSE STAFF IN ROOM TO SEE PT. BLOCK CLARIFIED WITH DR LICONA. DR LICONA STATES TO CHECK PLASMA POTASSIUM PRIOR TO GIVING INSULIN, CALCIUM GLUCONATE AND DEXTROSE
--- NOTE | 2016-09-15 16:40 | History & Physical ---
INGRIS MONTES,SVETLANA 09/15/16 8064: General Information and HPI MD Statement: I have seen and personally examined JAMES NELSON and documented this H&P. The patient is a 71 year old M who presented with a patient stated chief complaint of worsening shortness of breath. Source of Information: patient, family, old records Exam Limitations: language barrier History of Present Illness: 71-year-old male with multiple medical problems seen for evaluation of worsening shortness of breath. Telemetry admitted to [facility] from 09/11/16- for chest pain and was discharged to home. He reports not feeling well since discharge and is complaining of worsening shortness of breath since his hemodialysis session yesterday afternoon. This morning his shortness of breath has progressively worsened for which he was brought in by ambulance to [place] ED for evaluation. He reports associated chest pressure located in the mid/left chest wall without radiation. He denies any blurred/double vision, sweating, confusion, or dizzyness. He is also complaining of a new/worsening productive cough of clear sputum. No aggravating or alleviating facotors. Additionally he denies any headache, fever, chills, nausea, vomiting, diarrhea. PMHx: COPD on 2.0L O2, LLUVIA on CPAP, CAD s/p stent, ESRD on HD, HTN, Pulmonary HTN Allergies/Medications Allergies: Coded Allergies: venom-honey bee (bee venom (honey bee)) (Severe, ANAPHYLAXIS 02/13/16) Penicillins (Intermediate, RASH 02/13/16) Home Med list Albuterol Sulfate 2.5 MG/3 ML VIAL.NEB 1 Vial INH/ROSALINDA Q4P COPD (Reported) Albuterol Sulfate (Proair Hfa) 8.5 GM HFA.AER.AD 2 PUF INH PRN COPD (Reported ) Budesonide/Formoterol Fumarate (Symbicort 160-4.5 Mcg Inhaler) 10.2 GM HFA.AER.AD 2 PUF INH BID COPD Calcium Acetate (Phoslo) 667 MG CAPSULE 3 CAP PO WM KIDNEYS (Reported) Celecoxib (Celebrex) 100 MG CAPSULE 100 MG PO DAILY Anti Inflamatory Hydrocodone/Acetaminophen (Hydrocodon-Acetaminophen 5-325) 5 MG-325 MG TABLET 1 TAB PO DAILY PRN BACK PAIN Ipratropium/Albuterol Sulfate (Combivent Respimat Inhal [place]) 4 GM MIST.INHAL 1 PUFF INH 4 TIMES/DAY COPD (Reported) Lidocaine (Lidoderm) 5 % ADH..PATCH 1 PAT EXT 0600 Back Pain Metoprolol Succ XL (Toprol XL) 25 MG TAB 1.5 TAB PO DAILY atrial fibrillatoin Nephro-Vitamins (Nephro-Angie Tablet) 0.8 MG TABLET 1 TAB PO DAILY RENAL DX ( Reported) Pantoprazole Sodium 40 MG TABLET.DR 40 MG PO DAILY GERD (Reported) Roflumilast (Daliresp) 500 MCG TABLET 1 TAB PO DAILY COPD (Reported) Rosuvastatin Calcium (Crestor) 5 MG TABLET 5 MG PO DAILY HIGH CHOLESTROL ( Reported) Past History Travel History Traveled to [place] past 21 day No Medical History Neurological: NONE EENT: NONE Cardiovascular: CAD, hypertension, stents, severe pulmonary hypertension Respiratory: asthma, COPD, 2L O2 DEPENDANT CPAP EACH NIGHT Gastrointestinal: NONE Hepatic: NONE, hepatic congestion, splenomegaly Renal: ESRD on HD, FISTULA ON L UPPER EXT Musculoskeletal: NONE Psychiatric: NONE Endocrine: NONE, diabetes Blood Disorders: myelodysplastic syndrome. Cancer(s): NONE INDEX CLERK/Reproductive: NONE History of MRSA: No History of VRE: No History of CDIFF: No Pneumonia Vaccine: 07/03/16 Influenza Vaccine: 07/03/16 Surgical History Surgical History: cholecystectomy, AV FISTULA LUE Past Family/Social History Family History Relations & Conditions if any FATHER (CKD on HD, CAD, [place], DM). MOTHER (CKD on HD, CAD, [place], DM). FATHER (CKD on Hemodialysis, CAD, DM). MOTHER (CKD on Hemodialysis, CAD, [place]). Psychosocial History Who Do You Live With? spouse Services at Home: Oxygen Primary Language: Spanish ETOH Use: denies use Illicit Drug Use: denies illicit drug use Functional Ability ADLs Independent: eating, toileting. Needs Assist: bathing. Ambulation: independent Review of Systems Review of Systems Constitutional: Reports: see HPI. Exam & Diagnostic Data Last 24 Hrs of Vital Signs/I&O Vital Signs Date Time Temp Pulse Resp B/P Pulse O2 O2 Flow FiO2 Ox Delivery Rate 09/15 1620 110 97 09/15 1555 148 151/91 09/15 1529 148 151/91 09/15 1529 148 28 151/91 100 BIPAP 09/15 1446 155 28 155/86 100 BIPAP 09/15 1428 155 28 169/112 100 BIPAP 09/15 1414 BIPAP 09/15 1359 100 BIPAP 35% 09/15 1352 198/102 09/15 1350 167 99 09/15 1341 98.4 168 32 96 Nasal 3.5L Cannula Intake & Output 09/15 1600 09/15 0800 09/15 0000 Intake Total 250 Output Total Balance 250 Intake, IV 250 Patient 87.997 kg Weight Physical Exam General Appearance Alert, Oriented X3, Cooperative, Mild Distress Skin No Rashes, No Breakdown HEENT Atraumatic, PERRLA, EOMI, Mucous Membr. moist/pink Neck Supple Cardiovascular Regular Rate, Normal S1, Normal S2, No Murmurs Lungs Rhonchi Abdomen Normal Bowel Sounds, Soft, No Tenderness, No Hepatospenomegaly, No Masses Neurological Normal Speech, Normal Tone Extremities No Clubbing, No Cyanosis, No Edema, Normal Pulses, No Tenderness/ Swelling Vascular Normal Pulses, Pulses Symmetrical Last 24 Hrs of Labs/Jesus: Laboratory Tests 09/15/16 1710: Plasma Potassium 5.8 H 09/15/16 1625: pH 7.40, pCO2 38, pO2 107 H, HCO3 23, ABG O2 Sat (Measured) 97.0, P-50 (Temp Corrected) N, Carboxyhemoglobin 0.2 L, O2 Concentration % 35%, Temperature 99.9 , Respiration Rate 20, O2 Delivery Method BIPAP, Vent Mode ST, Expiratory Pressure 6, Inspiratory Pressure 18, Phlebotomy Draw Site RIGHT RADIAL 09/15/16 1355: Anion Gap 20 H, Estimated GFR 8 L, BUN/Creatinine Ratio 5.9 L, Glucose 116 H , Calcium 9.3, Magnesium 1.9, Troponin I 0.08, PT 13.3 H, INR 1.27 H, APTT 33, D-Dimer 814 H, CBC w Diff MAN DIFF ORDERED, RBC 4.02 L, MCV 90.4, MCH 29.3, RDW 15.3 H, MPV 11.9 H, Gran % 84.3 H, Lymphocytes % 7.8 L, Monocytes % 7.0, Eosinophils % 0.5, Basophils % 0.4, Absolute Granulocytes 10.1 H, Segmented Neutrophils 75, Band Neutrophils 8 H, Absolute Lymphocytes 0.9 L, Lymphocytes 9 L, Monocytes 7, Absolute Monocytes 0.8 H, Eosinophils 1, Absolute Eosinophils 0.1, Absolute Basophils 0.1, Platelet Estimate VERIFIED BY SMEAR, Polychromasia 1+, Poikilocytosis 1+, Anisocytosis 1+, Ovalocytes 1+, Stomatocytes 1+, PUBS MCHC 32.5 L Microbiology 09/15 1710 BLOOD: Blood Culture - RECD 09/15 1658 BLOOD: Blood Culture - RECD 09/15 1614 URINE ROUT: Urine Culture - ORD 09/15 161 LOWER RESP: Respiratory Culture - ORD 09/15 161 LOWER RESP: Gram Stain - ORD Assessment/Plan Assessment: 71 year old male with multiple medical problems significant for COPD, LLUVIA, CAD, ESRD, AND Pulm HTN seen for evaluation of worsening shortness of breath. Vital signs upon initial evaluation are signifcant for Temp 94.4, HR 148-168, RR 28-32 , BP 151-198/86-102, O2 96-100% on 35% FiO2 via Bipap. Physical examination demonstrates an obese elderly new zealander male in moderate respiratory distress with diffuse rhonchi and no crackles. Lab work is remarkable for WBC 12.0, K 6.0, BUN /cr 39/6.6. ABG showed pH 7.40 / CO2 38 / O2 107 / HCO3 23. Heart rate was found to be elevated to the 160's/170s for which an EKG was obtained and demonstrated supraventricular tachycardia versus atrial fibrillation with rapid ventricular response. Adenosine was given twice that failed to normal the heart rate. Patiend was given calcium gluconate, dextrose and insulin, and given cardizem and placed on a drip. Patients heart rate lowered to the 110's. Blood/Urine/Sputum cultures were taken and patient was given intravenous steroids and antibiotics. He is to be admitted to the intensive care unit for further monitoring and treatment. Problem List: - Acute hypoxic respiratory failure - COPD exacerbation - Reported History of Atrial Fibrillation Respiratory: History of Pulmonary hypertension, LLUVIA on CPAP, COPD on 2.0L O2. Patient of Dr. Belle. -Methylprednisone 60mg IV x1 dose -Ceftazidime 1g IV Daily -Pulmonology consult -Obtain CTA Chest to assess for PE if okay with nephrology Cardiovascular: History of CAD s/p stent, hypertension, Saccular aneurysm of descending thoracic aorta. Patient of Dr. Recio. Collateral information obtained from nurse prationer mentions patient has had a history of Atrial Fibrillation, however records do no appear to mention this. Echo (06/15/16) demonstrates EF 50-55% with aortic stenosis. -Cardizem drip -Metoprolol 27.5mg PO Daily -Atorvastatin 5mg PO Daily -Cardiology consult Nephrology: Patient with history of ESRD on HD (M,W,F). Patient of Dr. Shields. Last HD on 09/14/16. Reportedly no longer makes urine. -PhosLo 2g -Nephrocaps -Nephrology consult placed -F/U with Nephrology in regards to obtaining CTA with constrast Pain Plan: -Vicodin 1 TAB PO DAILY -Lidocaine Patch Diet - Renal Dialysis Diet DVT PPx - Heparin SC Code Status - FULL CODE As Ranked By This Provider Problem List: 1. COPD EXACERBATION Core Measures/Miscellaneous Acute Coronary Syndrome ACS Diagnosis: No Cerebrovascular Accident CVA/TIA Diagnosis: No Congestive Heart Failure CHF Diagnosis: No Venous Thromboembolism VTE Risk Factors: Acute medical illness, Age > 40, Obesity VTE Prophylaxis Ordered Inpt: Pharm- Heparin No [facility] VTE prophylaxis d/t: No contraindications No VTE Pharm Prophylaxis d/t: No contraindications VTE Diagnosis: No VTE Type: NONE VTE Confirmed by (Test): NONE Severe Sepsis Severe Sepsis Present: No Septic Shock Septic Shock Present: No Miscellaneous Documentation Attending Case Discussed With: LIANNA MULLER MD Primary Care Physician: CYNDI STEIN MD Patient sees these Specialists Dr. Hemal Merritt Level of Patient Care: Critical Care (CRI) Consults Needed: 1 Consulting Specialty: Cardiology Consults Needed: 2 Consulting Specialty: Nephrology LIANNA MULLER MD 09/15/16 1702: Attending Review Statement Attending Statement Attending MD Statement: examined this patient, discuss w/resident/PA/PULMONOLOGIST/INTENSIVIST, agreed w/resident/PA/PULMONOLOGIST/INTENSIVIST, discussed with family, reviewed EMR data (avail), discussed with nursing, reviewed images, amended to note Attending Assessment/Plan: 71 y/o M with extensive pmh sig for CAD, hypertension, stents, severe pulmonary hypertension, chronic respiratory failure, Sleep apnea on CPAP at each night, diabetes, end-stage renal disease on dialysis, history of remote atrial fibrillation not on any anticoagulation, recent admission to [facility] with worsening back pain which was thought to be secondary to radiculopathy from arthritis in the spine as well as had mild acute COPD exacerbation. Patient also has a history off (06/17) ERICKA finding of Grade IV atheromatous plaque is present throughout the distal aortic arch and the visualized portions of the descending thoracic aorta. Areas of protruding atheroma and thrombus are present. Multiple areas of plaque ulceration are also noted. THere are no penetrating ulcers, dissection or intramural hematoma detected. With CT scan recently confirming no aortic dissection. He went for dialysis yesterday and did not feel well when came back. Did not eat his dinner. Had no appetite. He was brought into the hospital secondary to not feeling well. In the emergency room he was found to be very tachycardic. He was put on BiPAP right away. He had a left right upper medications including hyper kalemia. He also had leukocytosis. His heart rate remained consistently high and he received 2 doses of adenosine which did not improve it significantly. He was seen by Dr. Belle in the emergency room and Cardizem was started. Heart rate is slightly improved after the Cardizem was instituted. Vital Signs Date Time Temp Pulse Resp B/P Pulse O2 O2 Flow FiO2 Ox Delivery Rate 09/15 1620 110 97 09/15 1555 148 151/91 09/15 1529 148 151/91 09/15 1529 148 28 151/91 100 BIPAP 09/15 1446 155 28 155/86 100 BIPAP 09/15 1428 155 28 169/112 100 BIPAP 09/15 1414 BIPAP 09/15 1359 100 BIPAP 35% 09/15 1352 198/102 09/15 1350 167 99 09/15 1341 98.4 168 32 96 Nasal 3.5L Cannula on exam; aox3, mild-mod distess. cv; s1,s2 rrr tachycardic. resp; mild scattered rhonchi. abd; obese, nt, bs+ ext; trace edema. Laboratory Tests 09/15 09/15 1625 1355 Blood Gas pH (7.35 - 7.45 PH) 7.40 pCO2 (35 - 45 TORR) 38 pO2 (80 - 100 TORR) 107 H HCO3 (21 - 28 MEQ/L) 23 ABG O2 Sat (Measured) (>96.0 %) 97.0 P-50 (Temp Corrected) N Carboxyhemoglobin (1.5 - 5.0 %) 0.2 L O2 Concentration % 35% Temperature (97.0 - 100.0 FARH) 99.9 Respiration Rate (BPM) 20 O2 Delivery Method BIPAP Vent Mode ST Expiratory Pressure (CM H2O P) 6 Inspiratory Pressure (CM H2O P) 18 Chemistry Sodium (137 - 145 mmol/L) 135 L Potassium (3.5 - 5.1 mmol/L) 6.0 *H Chloride (98 - 107 mmol/L) 87 L Carbon Dioxide (22 - 30 mmol/L) 28 Anion Gap (5 - 16) 20 H BUN (9 - 20 mg/dL) 39 H Creatinine (0.7 - 1.2 mg/dL) 6.6 *H Estimated GFR (>60 ml/min) 8 L BUN/Creatinine Ratio (7 - 25 %) 5.9 L Glucose (65 - 99 mg/dL) 116 H Calcium (8.4 - 10.2 mg/dL) 9.3 Magnesium (1.6 - 2.3 mg/dL) Pending Troponin I (<0.11 ng/ml) 0.08 Hematology CBC w Diff MAN DIFF ORDERED WBC (4.8 - 10.8 /CUMM) 12.0 H RBC (4.70 - 6.10 /CUMM) 4.02 L Hgb (14.0 - 18.0 G/DL) 11.8 L Hct (42 - 52 %) 36.4 L MCV (80.0 - 94.0 FL) 90.4 MCH (27.0 - 31.0 PG) 29.3 RDW (11.5 - 14.5 %) 15.3 H Plt Count (130 - 400 /CUMM) 151 MPV (7.4 - 10.4 FL) 11.9 H Gran % (42.2 - 75.2 %) 84.3 H Lymphocytes % (20.5 - 51.1 %) 7.8 L Monocytes % (1.7 - 9.3 %) 7.0 Eosinophils % (0 - 5 %) 0.5 Basophils % (0.0 - 2.0 %) 0.4 Absolute Granulocytes (1.4 - 6.5 /CUMM) 10.1 H Segmented Neutrophils (42.2 - 75.2 %) 75 Band Neutrophils (0.0 - 5.0 %) 8 H Absolute Lymphocytes (1.2 - 3.4 /CUMM) 0.9 L Lymphocytes (20.5 - 51.1 %) 9 L Monocytes (1.7 - 9.3 %) 7 Absolute Monocytes (0.10 - 0.60 /CUMM) 0.8 H Eosinophils (0 - 5.0 %) 1 Absolute Eosinophils (0.0 - 0.7 /CUMM) 0.1 Absolute Basophils (0.0 - 0.2 /CUMM) 0.1 Platelet Estimate (ADEQUATE) VERIFIED BY SMEAR Polychromasia 1+ Poikilocytosis 1+ Anisocytosis 1+ Ovalocytes 1+ Stomatocytes 1+ PUBS MCHC (33.0 - 37.0 G/DL) 32.5 L Miscellaneous Phlebotomy Draw Site RIGHT RADIAL CXR: IMPRESSION: In this patient with known pulmonary emphysema and bronchiectasis, the bronchial wall thickening has worsened within the right lower lobe. This suggests interval worsening of bronchitis. EKG>> initial EKG shows tachycardia which looks like sinus tachycardia. A/P: 71 y/o M with extensive pmh sig for CAD, hypertension, stents, severe pulmonary hypertension, chronic respiratory failure, Sleep apnea on CPAP at each night, diabetes, end-stage renal disease on dialysis, history of remote atrial fibrillation not on any anticoagulation, extensive aortic atheroma without sedation but no aortic dissection with recent admission to [facility] with chest pain which was thought to be secondary to today neuropathy as well as acute COPD exacerbation now admitted with tachycardia which could be secondary to rapid atrial fibrillation versus sinus tachycardia. Patient also has leukocytosis, hyperkalemia. Although patient is afebrile and does not complain of any colorful sputum, chest x-ray is consistent with possible worsening bronchitis. Patient is admitted to ICU. He was started on BiPAP. Please follow-up with respiratory, pulmonology about BiPAP. ABG was not too bad. Patient did receive treatment for hyperkalemia in the emergency room. Monitor his left lites and creatinine. Please notify nephrology, patient is a end-stage renal disease patient on dialysis. Massimo Belle MD recommends doing a CTA. Please clarify with nephrology and if okay order a CTA to rule out pulmonary embolism. Patient be continued on Cardizem drip until heart rate is better. Please resume his home medications including his beta joshua from tomorrow morning, renal medications. Please consult cardiology. Patient does not take any anticoagulant on regular basis. This needs to be confirmed with group marketing vp if he needs to be on any anticoagulation as it is not. If his rhythm was atrial fibrillation are not. IV steroids and antibiotics per pulmonology. DVT prophylaxis: Heparin subcutaneous. Patient is a full code CATIE TIERNEY 09/15/16 1716: Resident Review Statement Resident Statement: discussed with commercial intern Other Findings: He is 71-year-old man with past medical history of severe COPD (mild bilateral bronchiectasis) on 2 L of oxygen at home, end-stage renal disease on hemodialysis (MWF), coronary artery disease status post stent placement, hypertension, pulmonary hypertension, history of A. fib not on any anticoagulation, obstructive sleep apnea on CPAP at night, diffuse severe grade 4 aortic atheromatous plaque with plaque ulceration (recent ERICKA 06/15/2016) presented to ED from home with complaint of worsening of shortness of breath since yesterday. Patient was recently discharged from [facility] on 09/12 and at that time he was evaluated for chest pain and ACS was ruled out. Patient just had dialysis yesterday and 4 L of fluid was taken out. Patient also reports palpitations, chest heaviness, mild cough with light greenish phlegm this morning. He denies any fever, chills, nausea, vomiting, abdominal pain, diarrhea, constipation. He is not making urine. He is eating and drinking well. Very independent and drives too. Remote history of smoking. Quit 30 years ago. When I saw the patient he was on BiPAP, alert, oriented, answering questions and following commands. He was feeling better. Still complaining of chest heaviness and palpitations. Vitals on admission: Temperature 98.4, pulse 168, respiratory rate 32, blood pressure 170/102 and oxygen saturation 96% on 3.5 L of oxygen via nasal cannula. Positive Physical exam findings: Slight wheezing bilaterally on lung auscultation, tachycardia without any murmur, left upper extremity AV fistula Pertinent labs: WBC count 12.0 with 8 bands, H&H 11.8/36.4, sodium 135, potassium 6.0 (repeat 5.8), BUN 39, creatinine 6.6, glucose 116, ABGs: PH 7.40, PCO2 38, bicarbonate 23, PO2 107 EKG: Supraventricular tachycardia with heart rate 168, no acute ST-T wave changes, QTc 507 CXR: Bronchial wall thickening has worsened within the right lower lobe. In ER he was given adenosine 6 mg 1 followed by 12 mg 1. He was started on Cardizem drip after giving 5 mg IV bolus of Cardizem. He was still tachycardic so Cardizem bolus was repeated later on. He was also given 2 50 mL normal saline bolus, 125 mg IV Solu-Medrol 1, TRC nebs and morphine sulfate 2 mg IV 1. Assessment and plan He is 71-year-old man with past medical history of severe COPD (mild bilateral bronchiectasis) on 2 L of oxygen at home, end-stage renal disease on hemodialysis (MWF), coronary artery disease status post stent placement, hypertension, pulmonary hypertension, history of A. fib not on any anticoagulation, obstructive sleep apnea on CPAP at night, diffuse severe grade 4 aortic atheromatous plaque with plaque ulceration (recent ERICKA 06/15/2016) presented to ED from home with complaint of worsening of shortness of breath. Problem list 1. Shortness of breath. Most likely secondary to rapid ventricular rate, ? Afib. Patient has history of remote A. fib but he is not on any anticoagulation. Other possibilities could be his underlying COPD. He has slight wheezing on lung auscultation and chest x-rays also showing worsening of bronchitis. He was put on BiPAP and ABGs were in normal range. After putting on BiPAP and getting steroids with respiratory treatment his breathing was better. Patient had dialysis yesterday and 4 L of fluid was taken out. It could be a possibility that patient might be dehydrated because symptoms started yesterday night. He was tachycardic and tachypneic with shortness of breath so PE should also be ruled out. D-dimer is 814. 2. Hyperkalemia. Potassium 6.0. He was given calcium gluconate, insulin and dextrose. Repeat potassium is 5.8. He has also been given by mouth Kayexalate. Will check potassium again in a.m. 3. Leukocytosis with 8 bands. Could be reactive. Patient is afebrile. No evidence of infectious process going on. 4. End-stage renal disease on dialysis (MWF). Last dialysis yesterday. 4L of fluid was removed. 5. History of coronary artery disease status post stent placement 6. Hypertension 7. Severe COPD on 2L home oxygen, pulmonary hypertension, obstructive sleep apnea on CPAP at night 8. Grade 4 atheromatous plaque distal aortic arch and descending thoracic aorta with positive plaque ulceration PLAN We are going to admit patient in ICU for closer monitoring. Will continue TRC/ nebs, will avoid albuterol nebs given his tachycardia. Will continue intermittent BiPAP. Even though ABGs are normal but patient feels better while on BiPAP. We will continue Cardizem drip for now. Will titrate up if he is still tachycardic. Will follow further cardiac recommendations. ? Starting him on IV heparin drip. Serial troponins and EKG just to rule out ACS. We will do CTA chest to rule out PE. Patient has elevated creatinine in the setting of end -stage renal disease. It was discussed with final expense agent, Dr. Leonidas Muñoz and he is okay with CTA. Patient got 1 dose of steroid in ER. We will continue IV steroids. He was also started on IV ceftaz per Massimo Belle MD. Will check electrolytes daily and replete accordingly. Chay abraham is okay to hold off dialysis today. Patient would get next dialysis on Saturday or depending on his clinical course. Renal dialysis diet. Subcutaneous heparin for DVT prophylaxis. Mild to moderate pain pathway. Patient is full code.
--- NOTE | 2016-09-15 17:04 | NUR ---
PT HAS ROOM 101-1 CLEAN AND READY NOW
--- NOTE | 2016-09-15 17:18 | NUR ---
TWO SETS OF BLOOD CULTURES DRAWN. SERUM POTASSIUM DRAWN AND SECOND GREEN TOP DRAWN ALSO IN CASE FIRST TUBE IS HEMOLYZED. SECOND IV PLACED IN RIGHT HAND
--- NOTE | 2016-09-15 17:24 | Cons- Nephrology ---
General Information and HPI Consulting Request Date of Consult: 09/15/16 Requested By: LIANNA MULLER MD Reason for Consult: ESRD management Source of Information: patient, family, old records Exam Limitations: no limitations History of Present Illness: Pt is a 71 y/o man with a PMHx most significant for ESRD on HD (MWF at [facility]), COPD, LLUVIA on Home O2, CAD s/p PCI, pulm HTN, HTN who presents for SOB. The patient was just admitted to [facility] for chest pain. He was ruled out for an ME. The patient underwent dialysis on 09/12 with a UF target of 3.5L. He went to his dialysis at [facility] on 09/14 (yesterday) at which time he had 4L of fluid removed. He now presents with SOB since this AM. He was placed on BIPAP for increased work of breathing. He was noted on EKG to have a narrow complex tachycardia with a HR of 168. He was given 6mg and then 12mg of adenosine with improvement in his HR. He was given 250cc of fluid to see whether or not this would improve his tachycardia. He was subsequently given cardizem. No pulmonary edema on chest x-ray. He is being brought to the ICU for further management. When I saw the patient, he was feeling much better. At [facility], he has an EDW of 86kg. He got treatment yesterday, 09/14 - 4L UF - and left at 85.9kg. His dialysis is for 3:15. He has a DHRUV AVF. Potassiums range from 4.4-5.5. Pre-HD labs on 09/14 had a K of 5.0. The patient denies dietary noncompliance with potassium. Allergies/Medications Allergies: Coded Allergies: venom-honey bee (bee venom (honey bee)) (Severe, ANAPHYLAXIS 02/13/16) Penicillins (Intermediate, RASH 02/13/16) Home Med List: Albuterol Sulfate 2.5 MG/3 ML VIAL.NEB 1 Vial INH/ROSALINDA Q4P COPD (Reported) Albuterol Sulfate (Proair Hfa) 8.5 GM HFA.AER.AD 2 PUF INH PRN COPD (Reported ) Budesonide/Formoterol Fumarate (Symbicort 160-4.5 Mcg Inhaler) 10.2 GM HFA.AER.AD 2 PUF INH BID COPD Calcium Acetate (Phoslo) 667 MG CAPSULE 3 CAP PO WM KIDNEYS (Reported) Celecoxib (Celebrex) 100 MG CAPSULE 100 MG PO DAILY Anti Inflamatory Hydrocodone/Acetaminophen (Hydrocodon-Acetaminophen 5-325) 5 MG-325 MG TABLET 1 TAB PO DAILY PRN BACK PAIN Ipratropium/Albuterol Sulfate (Combivent Respimat Inhal [place]) 4 GM MIST.INHAL 1 PUFF INH 4 TIMES/DAY COPD (Reported) Lidocaine (Lidoderm) 5 % ADH..PATCH 1 PAT EXT 0600 Back Pain Metoprolol Succ XL (Toprol XL) 25 MG TAB 1.5 TAB PO DAILY atrial fibrillatoin Nephro-Vitamins (Nephro-Angie Tablet) 0.8 MG TABLET 1 TAB PO DAILY RENAL DX ( Reported) Pantoprazole Sodium 40 MG TABLET.DR 40 MG PO DAILY GERD (Reported) Roflumilast (Daliresp) 500 MCG TABLET 1 TAB PO DAILY COPD (Reported) Rosuvastatin Calcium (Crestor) 5 MG TABLET 5 MG PO DAILY HIGH CHOLESTROL ( Reported) Current Medications: Current Medications Sig/Zoe Start time Last Medication Dose Route Stop Time Status Admin Acetaminophen/ 1 TAB DAILY PRN 09/15 1730 AC Hydrocodone Bitart PO Acetaminophen/ 1 TAB DAILY PRN 09/15 1715 DC Hydrocodone Bitart PO Adenosine 0 .STK-MED ONE 09/15 1400 DC IV Albuterol Sulfate 3 ML ONCE ONE 09/15 1345 DC 09/15 INH 09/15 1346 1358 Atorvastatin Calcium 5 MG DAILY 09/16 1000 DC PO Atorvastatin Calcium 5 MG DAILY 09/16 1000 AC PO Calcium Acetate 2,001 MG WM 09/16 0800 DC PO Calcium Acetate 2,001 MG WM 09/16 0800 AC PO Calcium Gluconate 1 GM ONCE ONE 09/15 1600 DC Sodium Chloride 100 ML IV 09/15 1659 Ceftazidime 1,000 MG DAILY@1700 09/15 1700 AC IV Dextrose 25 GM ONCE ONE 09/15 1615 DC IV 09/15 1616 Diltiazem HCl 5 MG ONCE ONE 09/15 1600 DC 09/15 IV PUSH 09/15 1601 1555 Diltiazem HCl 5 MG ONCE ONE 09/15 1515 DC 09/15 IV 09/15 1516 1529 Diltiazem HCl 0 .STK-MED ONE 09/15 1514 DC .ROUTE Diltiazem HCl 125 MG Q12H 09/15 1500 AC 09/15 Dextrose/Water 100 ML IV 1500 Diltiazem HCl 0 .STK-MED ONE 09/15 1452 DC IV Heparin Sodium 5,000 UNIT Q8 09/15 2200 AC (Porcine) SC Insulin Human Regular 4 UNITS ONCE ONE 09/15 1615 DC IV 09/15 1616 Ipratropium [place] 2.5 ML Q6-PRN PRN 09/15 1715 AC INH Ipratropium [place] 2.5 ML ONCE ONE 09/15 1345 DC 09/15 INH 09/15 1346 1358 Lidocaine 1 PAT 0600 09/16 0600 DC EXT Lidocaine 1 PAT 0600 09/16 0600 AC EXT Methylprednisolone 0 .STK-MED ONE 09/15 1417 DC .ROUTE Methylprednisolone 125 MG ONCE ONE 09/15 1345 DC 09/15 IV 09/15 1346 1419 Metoprolol Succinate 37.5 MG DAILY 09/16 1000 DC PO Metoprolol Succinate 37.5 MG DAILY 09/16 1000 AC PO Morphine Sulfate 2 MG ONCE ONE 09/15 1515 DC 09/15 IV 09/15 1516 1529 Morphine Sulfate 0 .STK-MED ONE 09/15 1513 DC .ROUTE Multivitamins 1 TAB DAILY 09/16 1000 DC PO Multivitamins 1 TAB DAILY 09/16 1000 AC PO Omeprazole 40 MG DAILY AC 09/16 0700 AC PO Patient Medication 1 UNIT ONE NR 09/15 1730 Teaching ED 09/15 1800 Patient Medication 1 UNIT ONE NR 09/15 1730 Teaching ED 09/15 1800 Patient Medication 1 UNIT ONE NR 09/15 1730 [facility] ED 09/15 1800 Roflumilast 500 MCG DAILY 09/15 1715 AC PO Sodium Chloride 250 ML BOLUS ONE 09/15 1445 DC 09/15 IV 09/15 1544 1447 Review of Systems Review of Systems: Complete 14 point ROS neg except as per HPI Past History Travel History Traveled to [place] past 21 day No Medical History Neurological: NONE EENT: NONE Cardiovascular: CAD, hypertension, stents, severe pulmonary hypertension Respiratory: asthma, COPD, 2L O2 DEPENDANT CPAP EACH NIGHT Gastrointestinal: NONE Hepatic: NONE, hepatic congestion, splenomegaly Renal: ESRD on HD, FISTULA ON L UPPER EXT Musculoskeletal: NONE Psychiatric: NONE Endocrine: NONE, diabetes Blood Disorders: myelodysplastic syndrome. Cancer(s): NONE DEVELOPMENTAL BEHAVIORAL PHYSICIAN/Reproductive: NONE Surgical History Surgical History: cholecystectomy, AV FISTULA LUE Family History Relations & Conditions If Any: FATHER (CKD on HD, CAD, ME, DM). MOTHER (CKD on HD, CAD, ME, DM). FATHER (CKD on Hemodialysis, CAD, DM). MOTHER (CKD on Hemodialysis, CAD, ME). Psychosocial History Who Do You Live With? spouse Services at Home: Oxygen Primary Language: [place]an ETOH Use: denies use Illicit Drug Use: denies illicit drug use Functional Ability ADLs Independent: eating, toileting. Needs Assist: bathing. Ambulation: independent Exam & Diagnostic Data Vital Signs and I&O Vital Signs Date Time Temp Pulse Resp B/P Pulse O2 O2 Flow FiO2 Ox Delivery Rate 09/15 1620 110 97 09/15 1555 148 151/91 09/15 1529 148 151/91 09/15 1529 148 28 151/91 100 BIPAP 09/15 1446 155 28 155/86 100 BIPAP 09/15 1428 155 28 169/112 100 BIPAP 09/15 1414 BIPAP 09/15 1359 100 BIPAP 35% 09/15 1352 198/102 09/15 1350 167 99 09/15 1341 98.4 168 32 96 Nasal 3.5L Cannula Intake & Output 09/15 1600 09/15 0400 09/14 1600 09/14 0400 09/13 1600 09/13 0400 Intake Total 250 Output Total Balance 250 Intake, IV 250 Patient 194 lb Weight Physical Exam: Gen - OK appearing Head - NCAT Eyes - anicteric sclera Neck - supple CV - mildly tachycardic CHest - +rhonchi Abd - soft, nontender Ext - minimal edema Neuro - AOX3 Psych - appropriate affect Results Pertinent Lab Results: Laboratory Tests 09/15 09/15 1710 1625 Blood Gas pH (7.35 - 7.45 PH) 7.40 pCO2 (35 - 45 TORR) 38 pO2 (80 - 100 TORR) 107 H HCO3 (21 - 28 MEQ/L) 23 ABG O2 Sat (Measured) (>96.0 %) 97.0 P-50 (Temp Corrected) N Carboxyhemoglobin (1.5 - 5.0 %) 0.2 L O2 Concentration % 35% Temperature (97.0 - 100.0 FARH) 99.9 Respiration Rate (BPM) 20 O2 Delivery Method BIPAP Vent Mode ST Expiratory Pressure (CM H2O P) 6 Inspiratory Pressure (CM H2O P) 18 Chemistry Plasma Potassium Pending Miscellaneous Phlebotomy Draw Site RIGHT RADIAL 09/15 1355 Chemistry Sodium (137 - 145 mmol/L) 135 L Potassium (3.5 - 5.1 mmol/L) 6.0 *H Chloride (98 - 107 mmol/L) 87 L Carbon Dioxide (22 - 30 mmol/L) 28 Anion Gap (5 - 16) 20 H BUN (9 - 20 mg/dL) 39 H Creatinine (0.7 - 1.2 mg/dL) 6.6 *H Estimated GFR (>60 ml/min) 8 L BUN/Creatinine Ratio (7 - 25 %) 5.9 L Glucose (65 - 99 mg/dL) 116 H Calcium (8.4 - 10.2 mg/dL) 9.3 Magnesium (1.6 - 2.3 mg/dL) 1.9 Troponin I (<0.11 ng/ml) 0.08 Hematology CBC w Diff MAN DIFF ORDERED WBC (4.8 - 10.8 /CUMM) 12.0 H RBC (4.70 - 6.10 /CUMM) 4.02 L Hgb (14.0 - 18.0 G/DL) 11.8 L Hct (42 - 52 %) 36.4 L MCV (80.0 - 94.0 FL) 90.4 MCH (27.0 - 31.0 PG) 29.3 RDW (11.5 - 14.5 %) 15.3 H Plt Count (130 - 400 /CUMM) 151 MPV (7.4 - 10.4 FL) 11.9 H Gran % (42.2 - 75.2 %) 84.3 H Lymphocytes % (20.5 - 51.1 %) 7.8 L Monocytes % (1.7 - 9.3 %) 7.0 Eosinophils % (0 - 5 %) 0.5 Basophils % (0.0 - 2.0 %) 0.4 Absolute Granulocytes (1.4 - 6.5 /CUMM) 10.1 H Segmented Neutrophils (42.2 - 75.2 %) 75 Band Neutrophils (0.0 - 5.0 %) 8 H Absolute Lymphocytes (1.2 - 3.4 /CUMM) 0.9 L Lymphocytes (20.5 - 51.1 %) 9 L Monocytes (1.7 - 9.3 %) 7 Absolute Monocytes (0.10 - 0.60 /CUMM) 0.8 H Eosinophils (0 - 5.0 %) 1 Absolute Eosinophils (0.0 - 0.7 /CUMM) 0.1 Absolute Basophils (0.0 - 0.2 /CUMM) 0.1 Platelet Estimate (ADEQUATE) VERIFIED BY SMEAR Polychromasia 1+ Poikilocytosis 1+ Anisocytosis 1+ Ovalocytes 1+ Stomatocytes 1+ PUBS MCHC (33.0 - 37.0 G/DL) 32.5 L Imaging/Other Studies: EXAM TYPE: RAD - XRY-PORTABLE CHEST XRAY EXAMINATION: XR PORTABLE CHEST CLINICAL INFORMATION: Shortness of breath. History of chronic obstructive pulmonary disease. COMPARISON: CXR from 09/10/2016 TECHNIQUE: Portable view of the chest was obtained. FINDINGS: Lungs are symmetrically expanded. Bronchial wall thickening has worsened within the right lower lobe. There is linear and curvilinear opacity of atelectasis in the lateral aspect of the right lower lobe. There is no evidence of acute pulmonary edema or pleural effusion. Cardiac silhouette is enlarged. The atherosclerotic aorta is ectatic. No acute skeletal findings. IMPRESSION: In this patient with known pulmonary emphysema and bronchiectasis, the bronchial wall thickening has worsened within the right lower lobe. This suggests interval worsening of bronchitis. Assessment/Plan Assessment/Recommendations Assessment: ESRD - Had dialysis yesterday in which he was brought back down to his dry weight. No evidence of pulmonary edema. SOB appears to be 2/2 tachycardia and underlying lung disease rather than fluid. From a fluid standpoint, stable to hold off on dialysis. SOB - Likely more related to tachycardia and underlying lung disease rather than volume overload. Hyperkalemia - Given that his pre-HD which was taken from his AVF yesterday AM was 5.0, I feel like the K of 6.0 must be spurious. If it is confirmed on repeat, this can be treated medically with kayexalate. Anemia - On Epogen. Recommendations: -Repeat K -If K>6.0, would give kayexalate -Recheck K in AM -Tentative plan for dialysis on Saturday pending labs/clinical status -Epogen 4800U TIW with dialysis
--- NOTE | 2016-09-15 17:41 | NUR ---
PT COMPLAINING OF DIFFICULTY BREATHING. LUNGS WITH RHONCHI AND EXP WHEEZE. HEART RATE UP TO 140 AGAIN. 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
--- NOTE | 2016-09-15 18:10 | NUR ---
REPORT CALLED TO VALERY.
--- NOTE | 2016-09-15 18:32 | NUR ---
DR TELLES NOTIFIED OF INCREASED RESP DISTRESS REQUIRING PT TO GO BACK ON BIPAP. NOTIFIED OF HEART RATE 144. ORDERS RECIEVED TO INCREASE DILTIAZEN GTT TO 7.5MG/HR. GTT INCREASED TO 7.5CC/HR. PT ON BIPAP WITH IMPROVEMENT IN HIS BREATHING. DR TELLES ASKED TO ORDER D DIMER AND PT AN ADD ON BECAUSE A BLUE TOP TUBE WAS SENT TO LAB UPON ARRIVAL TO HOSPITAL
--- NOTE | 2016-09-15 18:35 | NUR ---
PER DR TEMPLETON'S NOTE. PT ONLY TO HAVE POTASSIUM TREATED IF GREATER THEN 6. POTASSIUM WAS 5.8. DID NOT GIVEN INSULIN, CALCIUM GLUCONATE OR DEXTROSE
[2016-09-15 18:50] LABS: PT 13.3 SEC (9.4-12.5); PTT 33 SEC (25-37)
[2016-09-15 20:00] VITALS: BP 142/80
--- NOTE | 2016-09-15 20:00 | NUR ---
PATIENT TRANSPORTED FROM ED TO ICU ROOM 101 WITH RN IN ATTENDANCE. PATIENT ALERT AND ORIENTED BUT BECAME IMMEDIATELY SOB ON TRANSFER FROM STRETCHER TO BED. RT AT BEDSIDE WHO IMMEDIATELY REAPPLIED BIPAP ON PATIENT WITH 30% OXYGEN. PATIENT SITTING BOLT UPRIGHT AND TRIPODING BUT SAT AT 97% WITH BIPAP. LUNGS WITH INSP AND EXP WHEEZES AND SOME RHONCHI ON RIGHT. MONITOR AFIB HR 130 WITH CARDIZEM DRIP AT 10MG/HR. BELLY SOFT NON TENDER WITH GOOD BOWEL SOUNDS. PATIENT DOES NOT URINATE DUE TO RENAL FAILURE AND HAS WORKING SHUNT IN L ARM WITH +BRUIT. NO SKIN ISSUES NOTED.
--- NOTE | 2016-09-15 20:36 | CT SCAN REPORT ---
EXAMINATION: CT ANGIOGRAM CHEST WITH AND WITHOUT CONTRAST (CT PULMONARY ANGIOGRAM FOR PE) CLINICAL INFORMATION: Tachypneic, tachycardic, shortness of breath. COMPARISON: Prior CTA chest 09/11/2016. TECHNIQUE: Prior to contrast administration, noncontrast localization images were obtained. Subsequently, multidetector volumetric imaging was performed from the thoracic inlet to below the diaphragms following the administration of 125 mL Optiray 350 intravenous contrast. No contrast reaction reported. Sagittal, coronal, and MIP oblique sagittal reformatted images were obtained on the CT workstation, uploaded to PACS, and reviewed. Total exam dose-length product 1024 mGy-cm. FINDINGS: QUALITY OF STUDY/CONTRAST BOLUS: Satisfactory. PULMONARY ARTERIES: No central or segmental pulmonary emboli. THORACIC AORTA: Unchanged diffuse atherosclerotic disease within the thoracic aorta. Multifocal mural small outpouchings with no interval change compared to exam 09/11/2016. Suboptimal opacification to assess for dissection. LUNG: Mild to moderate emphysema is redemonstrated. There is peribronchial thickening with bilateral lower lobe bronchiectasis. Patchy opacification within the right middle lobe and to a lesser degree the right lower lobe and right upper lobe. No overt pulmonary edema. PLEURA: No pleural effusion or pneumothorax. MEDIASTINUM: Normal to mildly prominent heart size. Coronary artery calcification. No pericardial effusion. No new hilar or mediastinal lymphadenopathy. No evidence of septal bowing or right heart strain. CHEST WALL/AXILLA: No axillary or internal mammary lymphadenopathy. OSSEOUS STRUCTURES: No acute or suspicious osseous abnormality. UPPER ABDOMEN: Pneumobilia noted. Cholecystectomy clips. IMPRESSION: 1. No pulmonary embolism. 2. No significant interval change in appearance of the thoracic aorta, with diffuse atherosclerotic disease as well as multiple small outpouchings/saccular aneurysms. This was described on prior CTA chest. 3. There is multifocal parenchymal opacification in the right lung which is most suspicious for an infectious/inflammatory process. 4. Bilateral emphysema and bronchiectasis. 5. Diffuse coronary artery calcification. 6. Additional findings as described. VTE: Negative.
--- NOTE | 2016-09-15 22:30 | NUR ---
DR PONCE IN TO EXAMINE PATIENT. PATIENT CONVERTED TO SINUS RHYTHM RATE OF 90 AT THIS TIME. PATIENT RELAXED WITH IMPROVED RESPIRATIONS, BIPAP CONTINUES.
--- NOTE | 2016-09-15 23:03 | Cons- Cardiology ---
General Information and HPI Consulting Request Date of Consult: 09/15/16 Requested By: LIANNA MULLER MD Reason for Consult: Tachycardia. Source of Information: patient, family, old records Exam Limitations: clinical condition, language barrier History of Present Illness: Mr. Julian Rodríguez is a 71-year-old male with a history of morbid obesity, former tobacco use, COPD, LLUVIA on CPAP, hypertension, dyslipidemia, diabetes mellitus, descending thoracic aortic aneurysms, previous splenic infarct, vague mention of previous atrial fibrillation without chronic anticoagulation, coronary artery disease s/p PCI with stenting around 2005, and previous heart failure with preserved left ventricular systolic function and recent hospitalization (09/10-09/12/2016) for atypical chest discomfort with no evidence of acute electrocardiographic changes or enzyme evidence of myocardial necrosis who returned to the ED earlier with complaints of progressive shortness of breath we are asked to evaluate and help manage regard to his tachycardia. Allergies/Medications Allergies: Coded Allergies: venom-honey bee (bee venom (honey bee)) (Severe, ANAPHYLAXIS 02/13/16) Penicillins (Intermediate, RASH 02/13/16) Home Med List: Albuterol Sulfate 2.5 MG/3 ML VIAL.NEB 1 Vial INH/ROSALINDA Q4P COPD (Reported) Albuterol Sulfate (Proair Hfa) 8.5 GM HFA.AER.AD 2 PUF INH PRN COPD (Reported ) Budesonide/Formoterol Fumarate (Symbicort 160-4.5 Mcg Inhaler) 10.2 GM HFA.AER.AD 2 PUF INH BID COPD Calcium Acetate (Phoslo) 667 MG CAPSULE 3 CAP PO WM KIDNEYS (Reported) Celecoxib (Celebrex) 100 MG CAPSULE 100 MG PO DAILY Anti Inflamatory Hydrocodone/Acetaminophen (Hydrocodon-Acetaminophen 5-325) 5 MG-325 MG TABLET 1 TAB PO DAILY PRN BACK PAIN Ipratropium/Albuterol Sulfate (Combivent Respimat Inhal [place]) 4 GM MIST.INHAL 1 PUFF INH 4 TIMES/DAY COPD (Reported) Lidocaine (Lidoderm) 5 % ADH..PATCH 1 PAT EXT 0600 Back Pain Metoprolol Succ XL (Toprol XL) 25 MG TAB 1.5 TAB PO DAILY atrial fibrillatoin Nephro-Vitamins (Nephro-Angie Tablet) 0.8 MG TABLET 1 TAB PO DAILY RENAL DX ( Reported) Pantoprazole Sodium 40 MG TABLET.DR 40 MG PO DAILY GERD (Reported) Roflumilast (Daliresp) 500 MCG TABLET 1 TAB PO DAILY COPD (Reported) Rosuvastatin Calcium (Crestor) 5 MG TABLET 5 MG PO DAILY HIGH CHOLESTROL ( Reported) Review of Systems Review of Systems: A 14 point system review was obtained and was noncontributory, other than as above. Past History Travel History Traveled to [place] past 21 day No Medical History Blood Transfusion Hx: Yes Neurological: NONE EENT: NONE Cardiovascular: CAD, hypertension, stents, severe pulmonary hypertension Respiratory: asthma, COPD, 2L O2 DEPENDANT CPAP EACH NIGHT Gastrointestinal: NONE Hepatic: NONE, hepatic congestion, splenomegaly Renal: ESRD on HD, FISTULA ON L UPPER EXT Musculoskeletal: NONE Psychiatric: NONE Endocrine: NONE, diabetes Blood Disorders: myelodysplastic syndrome. Cancer(s): NONE HAND COMPOSITOR/Reproductive: NONE Surgical History Surgical History: cholecystectomy, AV FISTULA LUE Family History Relations & Conditions If Any: FATHER (CKD on HD, CAD, PA, DM). MOTHER (CKD on HD, CAD, PA, DM). FATHER (CKD on Hemodialysis, CAD, DM). MOTHER (CKD on Hemodialysis, CAD, PA). Psychosocial History Who Do You Live With? spouse Services at Home: Oxygen Primary Language: Macedonian Smoking Status: Former Smoker ETOH Use: denies use Illicit Drug Use: denies illicit drug use Functional Ability ADLs Independent: eating, toileting. Needs Assist: bathing. Ambulation: independent ECHO Results (as available) Report: CONCLUSIONS 1. This was a limited followup examination performed to reassess the LV systolic function and the size of the pericardial effusion. 2. Aortic sclerosis is present. 3 Mitral leaflet thickening is present. 4. A small circumferential pericardial effusion is present. The effusion is more prominent posteriorly on this examination. The effusion remains hemodynamically insignificant. 5. Left atrial dilatation is present. 6. The left ventricular chamber size is normal with an ejection fraction of greater than 55-60%. There are no visible resting wall motion abnormalities. 7. The right heart structures were not optimally assessed. 8. A complete doppler examination was not performed on this examination. Exam & Diagnostic Data Vital Signs and I&O Vital Signs Date Time Temp Pulse Resp B/P Pulse O2 O2 Flow FiO2 Ox Delivery Rate 09/15 2206 128 98 09/15 2119 BIPAP 30% 09/15 1999 98 BIPAP 30% 09/15 1999 96.6 136 22 142/80 98 BIPAP 30% 09/15 1999 84 97 09/15 1620 110 97 09/15 1555 148 151/91 09/15 1529 148 151/91 09/15 1529 148 28 151/91 100 BIPAP 09/15 1446 155 28 155/86 100 BIPAP 09/15 1428 155 28 169/112 100 BIPAP 09/15 1414 BIPAP 09/15 1359 100 BIPAP 35% 09/15 1352 198/102 09/15 1350 167 99 09/15 1341 98.4 168 32 96 Nasal 3.5L Cannula Intake & Output 09/15 1600 09/15 0800 09/15 0000 09/14 1600 09/14 0800 09/14 0000 Intake Total 250 Output Total Balance 250 Intake, IV 250 Patient 194 lb Weight Physical Exam: Well-developed, morbidly obese elderly male with BiPAP in place in mild respiratory distress. Vital signs: See above. HEENT: Normocephalic, atraumatic, EOMI, moist mucous membranes. Neck: No JVD, no bruits. Lungs: Decreased breath sounds in bilateral wheezing. Heart: S1, S2 with soft systolic murmur. No gallop or rub appreciated. PMI not well felt. Abdomen: Soft, nontender, positive bowel sounds. Extremities: No edema. Labs/Jesus Results: Laboratory Tests 09/15 1710 1625 Blood Gas pH (7.35 - 7.45 PH) 7.40 pCO2 (35 - 45 TORR) 38 pO2 (80 - 100 TORR) 107 H HCO3 (21 - 28 MEQ/L) 23 ABG O2 Sat (Measured) (>96.0 %) 97.0 P-50 (Temp Corrected) N Carboxyhemoglobin (1.5 - 5.0 %) 0.2 L O2 Concentration % 35% Temperature (97.0 - 100.0 FARH) 99.9 Respiration Rate (BPM) 20 O2 Delivery Method BIPAP Vent Mode ST Expiratory Pressure (CM H2O P) 6 Inspiratory Pressure (CM H2O P) 18 Chemistry Plasma Potassium (3.4 - 4.4 MMOL/L) 5.8 H Coagulation PT Cancelled INR Cancelled Miscellaneous Phlebotomy Draw Site RIGHT RADIAL 09/15 1355 Chemistry Sodium (137 - 145 mmol/L) 135 L Potassium (3.5 - 5.1 mmol/L) 6.0 *H Chloride (98 - 107 mmol/L) 87 L Carbon Dioxide (22 - 30 mmol/L) 28 Anion Gap (5 - 16) 20 H BUN (9 - 20 mg/dL) 39 H Creatinine (0.7 - 1.2 mg/dL) 6.6 *H Estimated GFR (>60 ml/min) 8 L BUN/Creatinine Ratio (7 - 25 %) 5.9 L Glucose (65 - 99 mg/dL) 116 H Calcium (8.4 - 10.2 mg/dL) 9.3 Magnesium (1.6 - 2.3 mg/dL) 1.9 Troponin I (<0.11 ng/ml) 0.08 Coagulation PT (9.4 - 12.5 SEC) 13.3 H INR (0.90 - 1.17) 1.27 H APTT (25 - 37 SEC) 33 D-Dimer (70 - 232 ng/ml) 814 H Hematology CBC w Diff MAN DIFF ORDERED WBC (4.8 - 10.8 /CUMM) 12.0 H RBC (4.70 - 6.10 /CUMM) 4.02 L Hgb (14.0 - 18.0 G/DL) 11.8 L Hct (42 - 52 %) 36.4 L MCV (80.0 - 94.0 FL) 90.4 MCH (27.0 - 31.0 PG) 29.3 RDW (11.5 - 14.5 %) 15.3 H Plt Count (130 - 400 /CUMM) 151 MPV (7.4 - 10.4 FL) 11.9 H Gran % (42.2 - 75.2 %) 84.3 H Lymphocytes % (20.5 - 51.1 %) 7.8 L Monocytes % (1.7 - 9.3 %) 7.0 Eosinophils % (0 - 5 %) 0.5 Basophils % (0.0 - 2.0 %) 0.4 Absolute Granulocytes (1.4 - 6.5 /CUMM) 10.1 H Segmented Neutrophils (42.2 - 75.2 %) 75 Band Neutrophils (0.0 - 5.0 %) 8 H Absolute Lymphocytes (1.2 - 3.4 /CUMM) 0.9 L Lymphocytes (20.5 - 51.1 %) 9 L Monocytes (1.7 - 9.3 %) 7 Absolute Monocytes (0.10 - 0.60 /CUMM) 0.8 H Eosinophils (0 - 5.0 %) 1 Absolute Eosinophils (0.0 - 0.7 /CUMM) 0.1 Absolute Basophils (0.0 - 0.2 /CUMM) 0.1 Platelet Estimate (ADEQUATE) VERIFIED BY SMEAR Polychromasia 1+ Poikilocytosis 1+ Anisocytosis 1+ Ovalocytes 1+ Stomatocytes 1+ PUBS MCHC (33.0 - 37.0 G/DL) 32.5 L Diagnostic Data EKG Results (09/15/2016) SVT versus sinus tachycardia, age indeterminate anteroseptal myocardial infarction, prolonged QT interval. Faster rate when compared to previous tracing (09/10/2016). CXR Results (09/15/2016) In this patient with known pulmonary emphysema and bronchiectasis, the bronchial wall thickening has worsened within the right lower lobe. This suggests interval worsening of bronchitis. Other Results Chest CTA (09/15/2016) No pulmonary embolism. No significant interval change in appearance of the thoracic aorta, with diffuse atherosclerotic disease as well as multiple small outpouchings/saccular aneurysms. This was described on prior CTA chest. There is multifocal parenchymal opacification in the right lung which is most suspicious for an infectious/inflammatory process. Bilateral emphysema and bronchiectasis. Diffuse coronary artery calcification. Additional findings as described. VTE: Negative. is Assessment/Plan Assessment/Plan Mr. Rodríguez returned to the ED earlier with complaints of progressive shortness of breath and findings most consistent with an acute exacerbation of his COPD with an associated narrow complex regular tachycardia arrhythmia consistent with SVT versus sinus tachycardia with p-waves embedded in the preceding T waves. Suspect the latter as according to nursing he was given IV adenosine 6 mg IV times one followed by 12 mg IV 1 with only some transient slowing of the heart rate. Fortunately, a pulmonary embolism has been excluded by CT angiography which also suggests a probable pulmonary infectious etiology for his presentation. He was given IV diltiazem bolus of 10 mg 1 in the ED and was placed on an IV diltiazem drip at 7.5 mg/h which has been increased to 10 mg/h with some improvement in his heart rate which now appears to show sinus tachycardia. As his blood pressure is adequate can titrate the IV diltiazem further to achieve an acceptable heart rate. Obtain serial troponins and follow-up ECG with clinical status change or in the a.m. Continue with TRC, BiPAP, antimicrobial, steroid therapy etc. Would repeat CXR in a.m. DVT prophylaxis. Consult Acknowledgment - Thank you for your consult request.
[2016-09-16] VITALS: BP 152/84
--- NOTE | 2016-09-16 | NUR ---
PT FOUND A/Ox3, PLEASANT. ON BIPAP 30%FIO2. PT LUNGS HAVE COURSE RHONCI THROUGHOUT ALL LUNG PIMENTEL. PT HR 88-92 NOW IN 1 DEGREE AVB. MD NOTIFIED, EKG AND LABS DONE ORDERED. PT REPOSITIONED FOR COMFORT AND PT ATTEMPTING TO SLEEP.
--- NOTE | 2016-09-16 02:30 | NUR ---
PT FOUND TO BE IN RESPIRATORY DISTRESS, TRIPODING PULSE POX 74%. PER PT HE FELT SHORT OF BREATH SUDDENLY AND TOOK BIPAP MASK OFF BECAUSE HE FELT LIKE HE WAS HAVING A HARDER TIME BREATHING WITH IT. PT DIAPHROETIC AT THIS TIME HEART RATE REMAINS 1 AVB WITH A RATE IN THE 100-110S. PT PLACED BACK ON BIAP. PULSE OX IMPROVED WITH IN 5-10 MINUTES. PT STATES STILL DIFFICULT TO BREATH. RESPIRATORY CALLED AND WAS AT BEDSIDE. LUNGS REMAIN WITH RHONCI THROUGHOUT. PT BP ELEVATED TO 178/96. SR. FERREIRA NOITIFIED OF THE ABOVE. CXR IN AM ORDERED. PER MD RECHECK BP IN HOUR. PT HEART RATE RETURNED TO 90S'S AFTER THE EPISODE.
--- NOTE | 2016-09-16 04:00 | NUR ---
PT BP TRENDING DOWN 164/98. WILL CONITNUE TO MONITOR. PT STATES THAT HE FEELS LIKE HE IS STILL HAVING A HARDER TIME BREATHING THEN THE BEGINING OF THE SHIFT. DR. FERREIRA AWARE AND AT BEDSIDE TO EVALUATE.
--- NOTE | 2016-09-16 05:15 | NUR ---
LABS AND EKG DONE. RADIOLOGY CALLED AND TO COME. PT BP INCREASED TO 182/100. MD AWARE PER MD INCREASE CARDIZEM GTTS TO 12.5MG/HR. WILL CONTINUE TO MONITOR. PT GIVEN SKIN CARE, SKIN INTACT, NO EDEMA TO EXTREMETIES. PT HAS FEW SCATTERED CRACKLES WITH RHONCI THROUGHOUT.
--- NOTE | 2016-09-16 05:34 | Event Note ---
Event Note Event Note: Situation: * Progressive dyspnea * Persistent hyperkalemia Brief: * Patient reports increased respiratory effort is a night as progressed * Physical exam didn't reveal any gross crackles * Heart rate has been controlled with IV Cardizem * CXR pending this morning A/P: * I had a chance to speak with Dr. Muñoz (nephrology) * Plan for dialysis this afternoon * Potassium 6.1 up from 6.0. 10 units insulin, dextrose 1 * Accu-Cheks Q1hr for the next 3 hours. We'll give a second amp of dextrose if blood sugar drops
[2016-09-16 05:52] LABS: ABSOLUTE BASOPHIL COUNT 0 /CUMM (0.0-0.2); ABSOLUTE EOSINOPHIL COUNT 0 /CUMM (0.0-0.7); ABSOLUTE LYMPH COUNT 0.4 /CUMM (1.2-3.4); ABSOLUTE MONOCYTE COUNT 0.4 /CUMM (0.10-0.60); BASOPHIL % 0.1 % (0.0-2.0); EOSINOPHIL % 0 % (0-5); GRANULOCYTE % 85.8 % (42.2-75.2); HEMATOCRIT 32.7 % (42-52); MEAN CORPUSCULAR HGB 29.3 PG (27.0-31.0); MEAN CORPUSCULAR HGB CONC 32.6 G/DL (33.0-37.0); MEAN CORPUSCULAR VOLUME 89.9 FL (80.0-94.0); MEAN PLATELET VOLUME 11.6 FL (7.4-10.4); PLATELET COUNT 115 /CUMM (130-400); RBC DISTRIBUTION WIDTH 15.5 % (11.5-14.5); RED BLOOD CELL CT 3.64 /CUMM (4.70-6.10)
[2016-09-16 06:24] LABS: WHITE BLOOD CELL COUNT 5.8 /CUMM (4.8-10.8)
--- NOTE | 2016-09-16 06:30 | NUR ---
PT BP DOWN TO 168/98. NOTIFIED PER MD SHORT TOPOROL XL TO BE GIVEN NOW AND NEPHROLOGY CALLED BY HOUSESTAFF.
[2016-09-16 08:00] VITALS: BP 140/82
--- NOTE | 2016-09-16 08:39 | PN- Resident CRCU ---
Subjective HPI/CRCU Issues: 1. Acute hypoxic respiratory failure secondary to fluid overload 2. ESRD with fluid overload, hyperkalemia, tropeninemia - requiring dialysis today 3. 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 4. LLUVIA on BiPAP 4. Elevated troponins secondary to fluid overloada & ESRD 24 Hour Events: I saw and examined the patient today morning. He is having shortness of breath with diaphoresis, gasping for breath sitting in tripod position. He denies any chest pain, pressure, fever, chills, nausea, vomiting. He is saturating well on 4L NC. Objective Vital Signs & I&O Last 8 Hrs of Vitals and I&O: Intake & Output 09/16 1600 Intake Total Output Total Balance Patient 88.451 kg Weight VS Afebrile, HR initially tachycardic, now in 80's. In Afib at admission later converted to sinus rhythm, now had 1st degree AV block without any ischeamic signs in the EKG BP 150-170/85-90mmHg On BiPAP - 30% Exam General Appearance: alert, awake, anxious, moderate distress, obese Head: atraumatic, normal appearance Ears, Nose, Throat: normal pharynx, normal ENT inspection, hearing grossly normal Neck: normal inspection, supple Respiratory: chest non-tender, decreased breath sounds, crackles, respiratory distress Cardiovascular: regular rate/rhythm, normal peripheral pulses Gastrointestinal: normal bowel sounds, non-tender, distention Extremities: normal inspection, normal capillary refill, normal range of motion Cranial Nerves: normal hearing, normal speech, PERRL Skin: intact IV Drips IV Drips: Diltiazem drip @12.5mcg/hr. Nutrition Nutrition: P.O. diet Current Medications: Current Medications Sig/Zoe Start time Last Medication Dose Route Stop Time Status Admin Acetaminophen/ 1 TAB DAILY PRN 09/15 1730 AC Hydrocodone Bitart PO Acetaminophen/ 1 TAB DAILY PRN 09/15 1715 DC Hydrocodone Bitart PO Atorvastatin Calcium 5 MG DAILY 09/16 1000 DC PO Atorvastatin Calcium 5 MG DAILY 09/16 1000 AC 09/16 PO 0923 Calcium Acetate 2,001 MG WM 09/16 0800 DC PO Calcium Acetate 2,001 MG WM 09/16 0800 AC PO Calcium Gluconate 1 GM ONCE ONE 09/15 1600 DC Sodium Chloride 100 ML IV 09/15 1659 Ceftazidime 0 .STK-MED ONE 09/15 1824 DC .ROUTE Ceftazidime 1,000 MG DAILY@1700 09/15 1700 AC 09/15 IV 1831 Celecoxib 100 MG DAILY 09/16 1000 CAN PO Dextrose 25 GM ONCE ONE 09/16 0700 DC 09/16 IV 09/16 0701 0805 Dextrose 25 GM ONCE ONE 09/15 1615 DC IV 09/15 1616 Diltiazem HCl 5 MG ONCE ONE 09/15 1600 DC 09/15 IV PUSH 09/15 1601 1555 Diltiazem HCl 125 MG Q12H 09/15 1500 AC 09/16 Dextrose/Water 100 ML IV 0500 Heparin Sodium 5,000 UNIT Q8 09/15 2200 AC 09/16 (Porcine) SC 1422 Insulin Human Regular 10 UNITS ONCE ONE 09/16 0700 DC 09/16 IV 09/16 0701 0805 Insulin Human Regular 4 UNITS ONCE ONE 09/15 1615 DC IV 09/15 1616 Ipratropium [place] 2.5 ML TID 09/15 2200 AC 09/16 INH 1421 Ipratropium [place] 2.5 ML Q6-PRN PRN 09/15 1715 DC INH Lidocaine 1 PAT 0600 09/16 0600 DC EXT Lidocaine 1 PAT 0600 09/16 0600 AC 09/16 EXT 0639 Methylprednisolone 40 MG Q12 09/16 1000 DC 09/16 IV 0922 Metoprolol Succinate 37.5 MG DAILY 09/16 1000 DC PO Metoprolol Succinate 37.5 MG DAILY 09/16 1000 AC 09/16 PO 0637 Multivitamins 1 TAB DAILY 09/16 1000 DC PO Multivitamins 1 TAB DAILY 09/16 1000 AC 09/16 PO 0923 Omeprazole 40 MG DAILY AC 09/16 0700 AC 09/16 PO 0923 Patient Medication 1 UNIT ONE NR 09/15 1730 WI Teaching ED 09/15 1800 Patient Medication 1 UNIT ONE NR 09/15 1730 WI Teaching ED 09/15 1800 Patient Medication 1 UNIT ONE NR 09/15 1730 WI Teaching ED 09/15 1800 Prednisone 50 MG DAILY 09/16 1000 AC PO 09/18 1000 Roflumilast 500 MCG DAILY 09/15 1715 AC 09/16 PO 0923 Sodium Chloride 250 ML BOLUS ONE 09/15 1445 DC 09/15 IV 09/15 1544 1447 Sodium Polystyrene 60 ML ONCE ONE 09/15 1830 DC 09/15 Sulfonate PO 09/15 1831 2154 Antibiotics Antibiotic: ceftazidime Day #: 2 IV/PO? IV CXR Findings: IMPRESSION: Enlarged cardiac silhouette with vascular congestion. Interval improvement in the patchy right lower lobe opacity. Impression/Plan Impression/Problem List Impression: Patient is a 71 YO M with End stage COPD on oxygen, ESRD (on dialysis MWF), A.Fib (not on anticoagulation), LLUVIA on CPAP, CAD (s/p stent placement), HTN diffuse severe grade 4 aortic atheromatous plaque with plaque ulceration (recent ERICKA 06/15/2016) presented to ED from home with complaint of worsening of shortness of breath. He was initially found to have an SVT in the ER received IV adenosine 6mg followed by 12mg. Partially it broke the rhythm, so eventually placed on diltiazem drip. He was eventually admitted to ICU for close monitoring. Problem List: 1. Aortic aneurysm 2. COPD EXACERBATION 3. Coronary arteriosclerosis 4. ESRD (end stage renal disease) 5. Volume overload 6. Hypertension 7. Respiratory acidosis 8. Saccular aneurysm 9. Rapid atrial fibrillation 10. SVT (supraventricular tachycardia) Pain Ratin Tomorrow's Labs & Rationales: ICU bundle CBC Plan Respiratory: Acute hypoxic respiratory failure ( end stage COPD) * Multifactorial - causes include fluid overload, ESRD, LLUVIA. * CXR shows Enlarged cardiac silhouette with vascular congestion with patchy right lower lobe opacity. * CTA negative for PE * On IV ceftaz and started on oral prednisone 50mg from tomorrow. * Underwent 2hrs of hemodialysis session today to improve breathing and reduce fluid overload. * On roflumilast and prednisone chronically. LLUVIA * on CPAP at home * Nocturnal BiPAP as needed. Infectious Diseases: Bronchitis vs PNA * On IV ceftaz * would follow cultures * white count improved form 12 to 5 Cardiovascular: Elevated troponins with no significant EKG changes * Elevated troponin 0.18 >>> 0.20 to 0.16 * considered secondary to demand ischaemia in the setting of ESRD and fluid overload * we will trend trops and EKG for now. * Underwent 2hr hemodialysis today to reduce work load on heart. Rhythm changes * remote history of atrial fibrillation not on anticoagulation * At admission found to have SVT which was not broke by Adenosine * Eventually started on IV diltiazem drip - currently@12.5mcg/hr * Converted to sinus rhythm and later found to have first degree AV block Hematology: Leukocytosis * Whtie count elevated to 12 at admission, came down to 5 today * Daily CBC Metabolic: ESRD with Hyperkalemia * IV calcium gluconate and Insulin, dextrose given in ER. * No pertinent EKG changes. * Underwent hemodialysis today for 2 hrs * Tomorrow will undergo a full session dialysis. * Daily BEP monitoring. Alimentary: * On renal dialysis diet. Neurological: Intact Skin: Intact DVT/Prophylaxis: pharmacological, heparin Code Status: Full Code
--- NOTE | 2016-09-16 09:23 | PN- Pulmonary ---
Subjective HPI/Critical Care Issues: Doing a little better Just came on BiPAP still short of breath Dyspnea continues Patient did have persistent hyperkalemia did receive insulin and dextrose 1 last night Pending dialysis this afternoon Converted to sinus rhythm Does complain of mild pain in the right chest wall area which is chronic which is much improved than before per patient No headache nausea vomiting No diarrhea No chest pain at this time Review of symptoms otherwise unremarkable Still tachypneic. CT scan of the chest reviewed which showed no pulmonary embolism did show some infiltrates in the right lung which appears to be more atelectatic and inflammatory process no evidence suggestive of severe pneumonia at this time. Patient has had no fever or chills no real sputum production. Objective Current Medications: Current Medications Sig/Zoe Start time Last Medication Dose Route Stop Time Status Admin Acetaminophen/ 1 TAB DAILY PRN 09/15 1730 AC Hydrocodone Bitart PO Acetaminophen/ 1 TAB DAILY PRN 09/15 1715 DC Hydrocodone Bitart PO Adenosine 0 .STK-MED ONE 09/15 1400 DC IV Albuterol Sulfate 3 ML ONCE ONE 09/15 1345 DC 09/15 INH 09/15 1346 1358 Atorvastatin Calcium 5 MG DAILY 09/16 1000 DC PO Atorvastatin Calcium 5 MG DAILY 09/16 1000 AC PO Calcium Acetate 2,001 MG WM 09/16 0800 DC PO Calcium Acetate 2,001 MG WM 09/16 0800 AC PO Calcium Gluconate 1 GM ONCE ONE 09/15 1600 DC Sodium Chloride 100 ML IV 09/15 1659 Ceftazidime 0 .STK-MED ONE 09/15 1824 DC .ROUTE Ceftazidime 1,000 MG DAILY@1700 09/15 1700 AC 09/15 IV 1831 Celecoxib 100 MG DAILY 09/16 1000 AC PO Dextrose 25 GM ONCE ONE 09/16 0700 DC 09/16 IV 09/16 0701 0805 Dextrose 25 GM ONCE ONE 09/15 1615 DC IV 09/15 1616 Diltiazem HCl 5 MG ONCE ONE 09/15 1600 DC 09/15 IV PUSH 09/15 1601 1555 Diltiazem HCl 5 MG ONCE ONE 09/15 1515 DC 09/15 IV 09/15 1516 1529 Diltiazem HCl 0 .STK-MED ONE 09/15 1514 DC .ROUTE Diltiazem HCl 125 MG Q12H 09/15 1500 AC 09/16 Dextrose/Water 100 ML IV 0500 Diltiazem HCl 0 .STK-MED ONE 09/15 1452 DC IV Heparin Sodium 5,000 UNIT Q8 09/15 2200 AC 09/16 (Porcine) SC 0637 Insulin Human Regular 10 UNITS ONCE ONE 09/16 0700 DC 09/16 IV 09/16 0701 0805 Insulin Human Regular 4 UNITS ONCE ONE 09/15 1615 DC IV 09/15 1616 Ipratropium Baltic 2.5 ML TID 09/15 2200 AC 09/16 INH 0827 Ipratropium [place] 2.5 ML Q6-PRN PRN 09/15 1715 DC INH Ipratropium [place] 2.5 ML ONCE ONE 09/15 1345 DC 09/15 INH 09/15 1346 1358 Lidocaine 1 PAT 0600 09/16 0600 DC EXT Lidocaine 1 PAT 0600 09/16 0600 AC 09/16 EXT 0639 Methylprednisolone 40 MG Q12 09/16 1000 AC IV Methylprednisolone 0 .STK-MED ONE 09/15 1417 DC .ROUTE Methylprednisolone 125 MG ONCE ONE 09/15 1345 DC 09/15 IV 09/15 1346 1419 Metoprolol Succinate 37.5 MG DAILY 09/16 1000 DC PO Metoprolol Succinate 37.5 MG DAILY 09/16 1000 AC 09/16 PO 0637 Morphine Sulfate 2 MG ONCE ONE 09/15 1515 DC 09/15 IV 09/15 1516 1529 Morphine Sulfate 0 .STK-MED ONE 09/15 1513 DC .ROUTE Multivitamins 1 TAB DAILY 09/16 1000 DC PO Multivitamins 1 TAB DAILY 09/16 1000 AC PO Omeprazole 40 MG DAILY AC 09/16 0700 AC PO Patient Medication 1 UNIT ONE NR 09/15 1730 CA Teaching ED 09/15 1800 Patient Medication 1 UNIT ONE NR 09/15 1730 CA Teaching ED 09/15 1800 Patient Medication 1 UNIT ONE NR 09/15 1730 CA Teaching ED 09/15 1800 Roflumilast 500 MCG DAILY 09/15 1715 AC 09/15 PO 2034 Sodium Chloride 250 ML BOLUS ONE 09/15 1445 DC 09/15 IV 09/15 1544 1447 Sodium Polystyrene 60 ML ONCE ONE 09/15 1830 DC 09/15 Sulfonate PO 09/15 1831 2154 Vital Signs & I&O Last 24 Hrs of Vitals and I&O: Vital Signs Date Time Temp Pulse Resp B/P Pulse O2 O2 Flow FiO2 Ox Delivery Rate 09/16 0832 97 BIPAP 30% 09/16 0800 97.2 83 20 140/82 96 BIPAP 30% 09/16 0800 96 BIPAP 30% 09/16 0750 87 97 09/16 0637 90 164/98 09/16 0551 103 96 09/16 0424 96 BIPAP 30% 09/16 0256 101 97 09/16 0059 95 98 09/16 0000 97.8 88 16 152/84 94 BIPAP 30% 09/16 0000 94 BIPAP 30% 09/15 2207 128 98 09/15 2120 BIPAP 30% 09/15 1999 98 BIPAP 30% 09/15 1999 96.6 136 22 142/80 98 BIPAP 30% 09/15 1999 84 97 09/15 1620 110 97 09/15 1555 148 151/91 09/15 1529 148 151/91 09/15 1529 148 28 151/91 100 BIPAP 09/15 1446 155 28 155/86 100 BIPAP 09/15 1428 155 28 169/112 100 BIPAP 09/15 1414 BIPAP 09/15 1359 100 BIPAP 35% 09/15 1352 198/102 09/15 1350 167 99 09/15 1341 98.4 168 32 96 Nasal 3.5L Cannula Intake & Output 09/16 1600 09/16 0800 09/16 0000 Intake Total 185 100 Output Total 0 0 Balance 185 100 Intake, IV 95 40 Intake, Oral 90 60 Number 0 Bowel Movements Output, Urine 0 0 Patient 198 lb Weight Laboratory Tests 09/16 09/16 0750 0520 Blood Gas pH (7.35 - 7.45 PH) 7.35 pCO2 (35 - 45 TORR) 41 pO2 (80 - 100 TORR) 101 H HCO3 (21 - 28 MEQ/L) 22 ABG O2 Sat (Measured) (>96.0 %) 96.0 Carboxyhemoglobin (1.5 - 5.0 %) 0.3 L O2 Concentration % 30% Respiration Rate (BPM) 20 O2 Delivery Method VISION Vent Mode ST Expiratory Pressure (CM H2O P) 6 Inspiratory Pressure (CM H2O P) 18 Chemistry Sodium (137 - 145 mmol/L) 132 L Potassium (3.5 - 5.1 mmol/L) 6.1 *H Chloride (98 - 107 mmol/L) 87 L Carbon Dioxide (22 - 30 mmol/L) 23 Anion Gap (5 - 16) 22 H BUN (9 - 20 mg/dL) 52 H Creatinine (0.7 - 1.2 mg/dL) 8.2 *H Estimated GFR (>60 ml/min) 6 L Glucose (65 - 99 mg/dL) 118 H Calcium (8.4 - 10.2 mg/dL) 8.9 Phosphorus (2.5 - 4.5 mg/dL) 7.0 H Magnesium (1.6 - 2.3 mg/dL) 2.1 Total Bilirubin (0.2 - 1.3 mg/dL) 1.0 AST (17 - 59 U/L) 20 ALT (21 - 72 U/L) 35 Troponin I (<0.11 ng/ml) 0.20 *H Albumin (3.5 - 5.0 g/dL) 3.9 Hematology CBC w Diff NO MAN DIFF REQ WBC (4.8 - 10.8 /CUMM) 5.8 RBC (4.70 - 6.10 /CUMM) 3.64 L Hgb (14.0 - 18.0 G/DL) 10.6 L Hct (42 - 52 %) 32.7 L MCV (80.0 - 94.0 FL) 89.9 MCH (27.0 - 31.0 PG) 29.3 RDW (11.5 - 14.5 %) 15.5 H Plt Count (130 - 400 /CUMM) 115 L MPV (7.4 - 10.4 FL) 11.6 H Gran % (42.2 - 75.2 %) 85.8 H Lymphocytes % (20.5 - 51.1 %) 6.8 L Monocytes % (1.7 - 9.3 %) 7.3 Eosinophils % (0 - 5 %) 0 Basophils % (0.0 - 2.0 %) 0.1 Absolute Granulocytes (1.4 - 6.5 /CUMM) 5.0 Absolute Lymphocytes (1.2 - 3.4 /CUMM) 0.4 L Absolute Monocytes (0.10 - 0.60 /CUMM) 0.4 Absolute Eosinophils (0.0 - 0.7 /CUMM) 0 Absolute Basophils (0.0 - 0.2 /CUMM) 0 PUBS MCHC (33.0 - 37.0 G/DL) 32.6 L Miscellaneous Phlebotomy Draw Site RIGHT RADIAL 09/16 09/16 09/15 09/15 0500 0015 1999 1710 Chemistry Plasma Potassium (3.4 - 4.4 MMOL/L) 5.8 H Magnesium Cancelled Troponin I (<0.11 ng/ml) 0.18 *H Cancelled Coagulation PT Cancelled INR Cancelled 09/15 09/15 9462 1355 Blood Gas pH (7.35 - 7.45 PH) 7.40 pCO2 (35 - 45 TORR) 38 pO2 (80 - 100 TORR) 107 H HCO3 (21 - 28 MEQ/L) 23 ABG O2 Sat (Measured) (>96.0 %) 97.0 P-50 (Temp Corrected) N Carboxyhemoglobin (1.5 - 5.0 %) 0.2 L O2 Concentration % 35% Temperature (97.0 - 100.0 FARH) 99.9 Respiration Rate (BPM) 20 O2 Delivery Method BIPAP Vent Mode ST Expiratory Pressure (CM H2O P) 6 Inspiratory Pressure (CM H2O P) 18 Chemistry Sodium (137 - 145 mmol/L) 135 L Potassium (3.5 - 5.1 mmol/L) 6.0 *H Chloride (98 - 107 mmol/L) 87 L Carbon Dioxide (22 - 30 mmol/L) 28 Anion Gap (5 - 16) 20 H BUN (9 - 20 mg/dL) 39 H Creatinine (0.7 - 1.2 mg/dL) 6.6 *H Estimated GFR (>60 ml/min) 8 L BUN/Creatinine Ratio (7 - 25 %) 5.9 L Glucose (65 - 99 mg/dL) 116 H Calcium (8.4 - 10.2 mg/dL) 9.3 Magnesium (1.6 - 2.3 mg/dL) 1.9 Troponin I (<0.11 ng/ml) 0.08 Coagulation PT (9.4 - 12.5 SEC) 13.3 H INR (0.90 - 1.17) 1.27 H APTT (25 - 37 SEC) 33 D-Dimer (70 - 232 ng/ml) 814 H Hematology CBC w Diff MAN DIFF ORDERED WBC (4.8 - 10.8 /CUMM) 12.0 H RBC (4.70 - 6.10 /CUMM) 4.02 L Hgb (14.0 - 18.0 G/DL) 11.8 L Hct (42 - 52 %) 36.4 L MCV (80.0 - 94.0 FL) 90.4 MCH (27.0 - 31.0 PG) 29.3 RDW (11.5 - 14.5 %) 15.3 H Plt Count (130 - 400 /CUMM) 151 MPV (7.4 - 10.4 FL) 11.9 H Gran % (42.2 - 75.2 %) 84.3 H Lymphocytes % (20.5 - 51.1 %) 7.8 L Monocytes % (1.7 - 9.3 %) 7.0 Eosinophils % (0 - 5 %) 0.5 Basophils % (0.0 - 2.0 %) 0.4 Absolute Granulocytes (1.4 - 6.5 /CUMM) 10.1 H Segmented Neutrophils (42.2 - 75.2 %) 75 Band Neutrophils (0.0 - 5.0 %) 8 H Absolute Lymphocytes (1.2 - 3.4 /CUMM) 0.9 L Lymphocytes (20.5 - 51.1 %) 9 L Monocytes (1.7 - 9.3 %) 7 Absolute Monocytes (0.10 - 0.60 /CUMM) 0.8 H Eosinophils (0 - 5.0 %) 1 Absolute Eosinophils (0.0 - 0.7 /CUMM) 0.1 Absolute Basophils (0.0 - 0.2 /CUMM) 0.1 Platelet Estimate (ADEQUATE) VERIFIED BY SMEAR Polychromasia 1+ Poikilocytosis 1+ Anisocytosis 1+ Ovalocytes 1+ Stomatocytes 1+ PUBS MCHC (33.0 - 37.0 G/DL) 32.5 L Miscellaneous Phlebotomy Draw Site RIGHT RADIAL Microbiology Date/Time Procedure - Status Source Growth 09/15 1710 Blood Culture - RECD BLOOD 09/15 1658 Blood Culture - RECD BLOOD 09/15 161 Urine Culture - COLB URINE ROUT 09/15 161 Respiratory Culture - COLB LOWER RESP 09/15 161 Gram Stain - COLB LOWER RESP Impression/Plan Impression/Plan Impression/Plan: CT scan of the chest IMPRESSION: 1. No pulmonary embolism. 2. No significant interval change in appearance of the thoracic aorta, with diffuse atherosclerotic disease as well as multiple small outpouchings/saccular aneurysms. This was described on prior CTA chest. 3. There is multifocal parenchymal opacification in the right lung which is most suspicious for an infectious/inflammatory process. 4. Bilateral emphysema and bronchiectasis. 5. Diffuse coronary artery calcification. 6. Additional findings as described. VTE: Negative. 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, recurrent exacerbation on prednisone, Bronchiectasis due to recurrent infections, dietary noncompliance, ESRD, mild bilateral bronchiectasis, morbid obesity with obstructive sleep apnea , hypertension, previous hyperkalemia, cor pulmonale, on CPAP at home, previous hepatic disease with splenomegaly, moderate to severe pulmonary hypertension, myelodysplastic process, now comes in with * Resolved new onset atrial fibrillation now in sinus rhythm, with initial heart rate of 160 * Acute hypoxic resp failure due to Fluid overload, chronic respinsuff from end stage copd, vicky, ohv, pulm htn, now * ESRD with hyperkalemia, with fluid overload with mild hyperkalemia clinically stable * Recent right-sided musculoskeletal chest pain, with underlying atelectasis versus infiltrate * Sig copd with no evidence of sig exacerbation as he has no significant wheezing * End Stage copd with Previous bronchiectasis. 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 However pna cannot be excluded as he was on steroids and this may need to be treated temporarily until he improves * SIg thoracic aneurysm saccular in nature with no worsening of his aneurysm or any dissection by recent ct * Obstructive sleep apnea on CPAP compliant * Chronic steroid use, hence immunosuppressed * Morbid obesity with noncompliance * Previous history of biliary sepsis obstruction no no evidence suggestive of that with previous stent with pneumobilia * No pe CTA negative REC Continue current Continue ceftaz Discontinue Celebrex Diltiazem per cardiology Discontinue intravenous Solu-Medrol start him on 50 mg of prednisone with a slow taper As needed morphine Sputum culture if he has any We will switch him to by mouth antibiotics soon Needs dialysis as he appears fluid overloaded with a BNP of 91,000 Systemic anticoagulation may be necessary we'll leave it up to cardiology Probably would require an echocardiogram Ipratropium nebulizer therapy 3 times a day Avoid albuterol for now Continue Lidoderm patch Prognosis is guarded to poor as he has multiple issues Use BiPAP as needed Pt is critically ill tts40 mins
--- NOTE | 2016-09-16 09:50 | RADIOLOGY REPORT ---
EXAMINATION: XR PORTABLE CHEST CLINICAL INFORMATION: Worsening shortness of breath. Pneumonia. COPD. COMPARISON: CTA thorax 09/15/2016. Chest radiograph 09/15/2016. TECHNIQUE: Portable view of the chest was obtained. FINDINGS: The cardiac silhouette is enlarged. There is vascular congestion without interstitial or alveolar edema. No obvious consolidation is seen. The findings have shown improvement from 09/15/2016. A vascular stent is seen in the left axillary, subclavian vein region. IMPRESSION: Enlarged cardiac silhouette with vascular congestion. Interval improvement in the patchy right lower lobe opacity.
--- NOTE | 2016-09-16 11:08 | NUR ---
@0800-PT ALERT AND ORIENTED, ANXIOUS AT TIMES. FOLLOWS COMMANDS. VELAZQUEZ. NOTED TO BE ON TFCDP-GUAPVPFR-VBEM 20, FIO2 30%, IPAP 18/EPAP6. O2SAT 99%. RHONCHI AUSCULTATED. IV SOLU ORD FOR THIS AM. CONT NEBS TID. PT REMAINS IN 1ST DEGREE AVB HR 80-90S. BP STABLE. RENAL DIALYSIS DIET ORD. ABD DISTENDED, SOFT, +BS. PT DOES NOT VOID-DIALYSIS 3X WEEK. PT TO HAVE DIALYSIS TODAY, THIS AFTERNOON PER HOUSESTAFF. SKIN INTACT WITH LIDODERM PATCH NOTED TO L FLANK. + PULSES NOTED. IV CARDIZEM GTT INFUSING AT 12.5MG/HR. PT MEDICATED WITH INSULIN 10UNITS AND 1 AMP D50 FOR K+6.1 THIS AM. L AV FISTULA NOTED WITH +BRUIT AND +THRILL. ABG BEING DONE AT THIS TIME BY RT. TROP 0.20. CONT TO MONITOR CLOSELY. CALL LICONA WITHIN REACH. FAMILY UPDATED.
--- NOTE | 2016-09-16 11:13 | NUR ---
@0900-PT PLACED ON NC BY RT-4L. O2SAT 96%, VENITA WELL/ PT STATES HIS BREATHING DOES FEEL HEAVY AT TIMES, AWAITING DIALYSIS. BREAKFAST TRAY PROVIDED. @1000-ASSISTED PT OOB TO JAMES. VENITA ACTIVITY WELL. NEW IV SITE PLACED TO DUE TO PREV IV IN AC NO LONGER WORKING. CONT TO MONITOR CLOSELY. CALL LICONA WITHIN REACH.
--- NOTE | 2016-09-16 11:49 | PN- Att Addend ---
Attending Addendum Attending Brief Note Patient seen and examined, off of BIPAP this am. Not feeling good. C/O SOb. K remains high despite treatment. Vital Signs Date Time Temp Pulse Resp B/P Pulse O2 O2 Flow FiO2 Ox Delivery Rate 09/16 0832 97 BIPAP 30% 09/16 08 97.2 83 20 140/82 96 BIPAP 30% 09/16 0800 96 BIPAP 30% 09/16 0750 87 97 09/16 0637 90 164/98 09/16 0551 103 96 09/16 0424 96 BIPAP 30% 09/16 0256 101 97 09/16 0059 95 98 09/16 0000 97.8 88 16 152/84 94 BIPAP 30% 09/16 0000 94 BIPAP 30% 09/15 2207 128 98 09/15 2120 BIPAP 30% 09/15 1999 98 BIPAP 30% 09/15 1999 96.6 136 22 142/80 98 BIPAP 30% 09/15 1999 84 97 09/15 1620 110 97 09/15 1555 148 151/91 09/15 1529 148 151/91 09/15 1529 148 28 151/91 100 BIPAP 09/15 1446 155 28 155/86 100 BIPAP 09/15 1428 155 28 169/112 100 BIPAP 09/15 1414 BIPAP 09/15 1359 100 BIPAP 35% 09/15 1352 198/102 09/15 1350 167 99 09/15 1341 98.4 168 32 96 Nasal 3.5L Cannula on exam; aox3, mild- mod distress 2/2 to having sob. cv; s1,s2, rrr. resp; + crackles right base. abd; soft, nt, bs+ ext; trace edema. Laboratory Tests 09/16 09/16 0750 0520 Blood Gas pH (7.35 - 7.45 PH) 7.35 pCO2 (35 - 45 TORR) 41 pO2 (80 - 100 TORR) 101 H HCO3 (21 - 28 MEQ/L) 22 ABG O2 Sat (Measured) (>96.0 %) 96.0 Carboxyhemoglobin (1.5 - 5.0 %) 0.3 L O2 Concentration % 30% Respiration Rate (BPM) 20 O2 Delivery Method VISION Vent Mode ST Expiratory Pressure (CM H2O P) 6 Inspiratory Pressure (CM H2O P) 18 Chemistry Sodium (137 - 145 mmol/L) 132 L Potassium (3.5 - 5.1 mmol/L) 6.1 *H Chloride (98 - 107 mmol/L) 87 L Carbon Dioxide (22 - 30 mmol/L) 23 Anion Gap (5 - 16) 22 H BUN (9 - 20 mg/dL) 52 H Creatinine (0.7 - 1.2 mg/dL) 8.2 *H Estimated GFR (>60 ml/min) 6 L Glucose (65 - 99 mg/dL) 118 H Calcium (8.4 - 10.2 mg/dL) 8.9 Phosphorus (2.5 - 4.5 mg/dL) 7.0 H Magnesium (1.6 - 2.3 mg/dL) 2.1 Total Bilirubin (0.2 - 1.3 mg/dL) 1.0 AST (17 - 59 U/L) 20 ALT (21 - 72 U/L) 35 Troponin I (<0.11 ng/ml) 0.20 *H Albumin (3.5 - 5.0 g/dL) 3.9 Hematology CBC w Diff NO MAN DIFF REQ WBC (4.8 - 10.8 /CUMM) 5.8 RBC (4.70 - 6.10 /CUMM) 3.64 L Hgb (14.0 - 18.0 G/DL) 10.6 L Hct (42 - 52 %) 32.7 L MCV (80.0 - 94.0 FL) 89.9 MCH (27.0 - 31.0 PG) 29.3 RDW (11.5 - 14.5 %) 15.5 H Plt Count (130 - 400 /CUMM) 115 L MPV (7.4 - 10.4 FL) 11.6 H Gran % (42.2 - 75.2 %) 85.8 H Lymphocytes % (20.5 - 51.1 %) 6.8 L Monocytes % (1.7 - 9.3 %) 7.3 Eosinophils % (0 - 5 %) 0 Basophils % (0.0 - 2.0 %) 0.1 Absolute Granulocytes (1.4 - 6.5 /CUMM) 5.0 Absolute Lymphocytes (1.2 - 3.4 /CUMM) 0.4 L Absolute Monocytes (0.10 - 0.60 /CUMM) 0.4 Absolute Eosinophils (0.0 - 0.7 /CUMM) 0 Absolute Basophils (0.0 - 0.2 /CUMM) 0 PUBS MCHC (33.0 - 37.0 G/DL) 32.6 L Miscellaneous Phlebotomy Draw Site RIGHT RADIAL 09/16 09/16 09/15 09/15 0500 0015 2000 1710 Chemistry Plasma Potassium (3.4 - 4.4 MMOL/L) 5.8 H Magnesium Cancelled Troponin I (<0.11 ng/ml) 0.18 *H Cancelled Coagulation PT Cancelled INR Cancelled 09/15 09/15 1625 1355 Blood Gas pH (7.35 - 7.45 PH) 7.40 pCO2 (35 - 45 TORR) 38 pO2 (80 - 100 TORR) 107 H HCO3 (21 - 28 MEQ/L) 23 ABG O2 Sat (Measured) (>96.0 %) 97.0 P-50 (Temp Corrected) N Carboxyhemoglobin (1.5 - 5.0 %) 0.2 L O2 Concentration % 35% Temperature (97.0 - 100.0 FARH) 99.9 Respiration Rate (BPM) 20 O2 Delivery Method BIPAP Vent Mode ST Expiratory Pressure (CM H2O P) 6 Inspiratory Pressure (CM H2O P) 18 Chemistry Sodium (137 - 145 mmol/L) 135 L Potassium (3.5 - 5.1 mmol/L) 6.0 *H Chloride (98 - 107 mmol/L) 87 L Carbon Dioxide (22 - 30 mmol/L) 28 Anion Gap (5 - 16) 20 H BUN (9 - 20 mg/dL) 39 H Creatinine (0.7 - 1.2 mg/dL) 6.6 *H Estimated GFR (>60 ml/min) 8 L BUN/Creatinine Ratio (7 - 25 %) 5.9 L Glucose (65 - 99 mg/dL) 116 H Calcium (8.4 - 10.2 mg/dL) 9.3 Magnesium (1.6 - 2.3 mg/dL) 1.9 Troponin I (<0.11 ng/ml) 0.08 Coagulation PT (9.4 - 12.5 SEC) 13.3 H INR (0.90 - 1.17) 1.27 H APTT (25 - 37 SEC) 33 D-Dimer (70 - 232 ng/ml) 814 H Hematology CBC w Diff MAN DIFF ORDERED WBC (4.8 - 10.8 /CUMM) 12.0 H RBC (4.70 - 6.10 /CUMM) 4.02 L Hgb (14.0 - 18.0 G/DL) 11.8 L Hct (42 - 52 %) 36.4 L MCV (80.0 - 94.0 FL) 90.4 MCH (27.0 - 31.0 PG) 29.3 RDW (11.5 - 14.5 %) 15.3 H Plt Count (130 - 400 /CUMM) 151 MPV (7.4 - 10.4 FL) 11.9 H Gran % (42.2 - 75.2 %) 84.3 H Lymphocytes % (20.5 - 51.1 %) 7.8 L Monocytes % (1.7 - 9.3 %) 7.0 Eosinophils % (0 - 5 %) 0.5 Basophils % (0.0 - 2.0 %) 0.4 Absolute Granulocytes (1.4 - 6.5 /CUMM) 10.1 H Segmented Neutrophils (42.2 - 75.2 %) 75 Band Neutrophils (0.0 - 5.0 %) 8 H Absolute Lymphocytes (1.2 - 3.4 /CUMM) 0.9 L Lymphocytes (20.5 - 51.1 %) 9 L Monocytes (1.7 - 9.3 %) 7 Absolute Monocytes (0.10 - 0.60 /CUMM) 0.8 H Eosinophils (0 - 5.0 %) 1 Absolute Eosinophils (0.0 - 0.7 /CUMM) 0.1 Absolute Basophils (0.0 - 0.2 /CUMM) 0.1 Platelet Estimate (ADEQUATE) VERIFIED BY SMEAR Polychromasia 1+ Poikilocytosis 1+ Anisocytosis 1+ Ovalocytes 1+ Stomatocytes 1+ PUBS MCHC (33.0 - 37.0 G/DL) 32.5 L Miscellaneous Phlebotomy Draw Site RIGHT RADIAL A/P; 71 y/o M with extensive pmh sig for CAD, hypertension, stents, severe pulmonary hypertension, chronic respiratory failure, Sleep apnea on CPAP at each night, diabetes, end-stage renal disease on dialysis, history of remote atrial fibrillation not on any anticoagulation, extensive aortic atheroma without sedation but no aortic dissection with recent admission to [facility] with chest pain which was thought to be secondary to Radiculopathy as well as acute COPD exacerbation, admitted with tachycardia which could be secondary to rapid atrial fibrillation versus sinus tachycardia. Patient also has leukocytosis, hyperkalemia. Although patient is afebrile and does not complain of any colorful sputum, chest x-ray is consistent with possible worsening bronchitis. Chest CTA neg for PE. But consistent with possible infectious process at right base. Steroids switched to oral as recommended by Pulm. Pt still on IV Ceftaz. HD per nephrology. Pt received Kayxelate lats night but K did not improve. Likely will improve after dialysis. Heart rate improved with diltiazem. Patient also received his beta joshua this morning. 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 DVT prophylaxis: Heparin subcutaneous.
--- NOTE | 2016-09-16 12:35 | Event Note ---
Event Note Event Note: Situation : Elevated troponin 0.18 >>> 0.20 Brief : * Patient was reported to have elevated troponin. * He is awaiting dialysis today afternoon. * EKg consistent with old EKg, no new EKG chages. * Patient doesnot complaint of any chest pain * Cardiology Dr quigley informed. * Most likely 2/2 to deman ischemia A/p * Ct current Max * Moslt likey 2/2 to deman ischemia
--- NOTE | 2016-09-16 13:47 | NUR ---
@1230-PT SITTING IN CHAIR AND COMPLAINING OF DIFF BREATHING. O2SAT 96%. RR 26. CRACKLES AUSCULTATED. FAMILY CONCERNED ON WHEN PT WILL BE RECIEVING DIALYSIS. ONCALL ENVIRONMENTAL SERVICES ASSOCIATE CALLED FROM [facility] FOR UPDATE ON WHEN DIALYSIS WILL TAKE PLACE. PT ALSO DIAPHORETIC AT THIS TIME. BP STABLE. HR 80S-90S. ASSISTED BACK TO BED, PLACED BACK ON BIPAP. STAT EKG AND TROP DONE AT THIS TIME. IV SOLU CHANGED TO PRED. FAMILY AT BEDSIDE. CONT TO MONITOR CLOSELY.
[2016-09-16 16:00] VITALS: BP 150/78
--- NOTE | 2016-09-16 16:34 | NUR ---
@1600-PT MEDICATED WITH PRN MORPHINE FOR DIFFICULTY BREATHING. VSS. AWAITING DIALYSIS THIS BIANCA. ACCUCHECK 141. CONT ON CARDIZEM GTT AT 12.5MG/HR. CONT TO MONITOR, CALL LICONA WITHIN REACH. FAMILY AT BEDSIDE.
--- NOTE | 2016-09-16 16:39 | PN- Nephrology ---
Assessment/Plan Assessment: ESRD - Extra session of HD today for mildly elevated K and ultrafiltration to try and improve breathing. Hyperkalemia - Unclear cause given that K was 5.0 before dialysis on 09/14. Should improve after dialysis today. Has had adequate clearance with AVF up to this point. SOB - Multifactorial - fluid may be playing some role although not predominant. In the past, he has had lower extremity edema which he does not have now. He has also been reaching his dry weight. Suggestion: -2hr HD session today -Full dialysis session tomorrow -K restricted diet -[id number] Epogen TIW Subjective Subjective: SOB No pulmonary edema seen on CTA last night No PE Possible infection Some vascular congestion seen on today's x-ray Plasma K 5.8 last night - K 6.1 this AM Objective Vital Signs and I&Os Vital Signs Date Time Temp Pulse Resp B/P Pulse O2 O2 Flow FiO2 Ox Delivery Rate 09/16 1600 96.8 91 24 150/78 98 Nasal 4.0L Cannula 09/16 1432 94 Nasal 4.0L Cannula 09/16 1220 90 98 09/16 1200 97 BIPAP 30% 09/16 0832 97 BIPAP 30% 09/16 0800 97.2 83 20 140/82 96 BIPAP 30% 09/16 0800 96 BIPAP 30% 09/16 0750 87 97 09/16 0637 90 164/98 09/16 0551 103 96 09/16 0424 96 BIPAP 30% 09/16 0256 101 97 09/16 0059 95 98 09/16 0000 97.8 88 16 152/84 94 BIPAP 30% 09/16 0000 94 BIPAP 30% 09/15 2207 128 98 09/15 2120 BIPAP 30% 09/15 1999 98 BIPAP 30% 09/15 1999 96.6 136 22 142/80 98 BIPAP 30% 09/15 1999 84 97 Intake & Output 09/16 1600 09/16 0400 09/15 1600 09/15 0400 09/14 0400 Intake Total 575 100 250 Output Total 0 0 Balance 575 100 250 Intake, IV 245 40 250 Intake, Oral 330 60 Number 0 Bowel Movements Output, Urine 0 0 Patient 195 lb 198 lb 194 lb Weight Physical Exam: Gen - OK appearing HEENT - supple CV - RRR Chest - decreased breath sounds b/l Abd - soft, nontender Ext - no edema Access - DHRUV AVF - aneurysmal with +thrill/+bruit Current Medications: Current Medications Sig/Zoe Start time Last Medication Dose Route Stop Time Status Admin Acetaminophen/ 1 TAB DAILY PRN 09/15 1730 AC Hydrocodone Bitart PO Acetaminophen/ 1 TAB DAILY PRN 09/15 1715 DC Hydrocodone Bitart PO Atorvastatin Calcium 5 MG DAILY 09/16 1000 DC PO Atorvastatin Calcium 5 MG DAILY 09/16 1000 AC 09/16 PO 0923 Calcium Acetate 2,001 MG WM 09/16 0800 DC PO Calcium Acetate 2,001 MG WM 09/16 0800 AC PO Calcium Gluconate 1 GM ONCE ONE 09/15 1600 DC Sodium Chloride 100 ML IV 09/15 1659 Ceftazidime 0 .STK-MED ONE 09/15 1824 DC .ROUTE Ceftazidime 1,000 MG DAILY@1700 09/15 1700 AC 09/15 IV 1831 Celecoxib 100 MG DAILY 09/16 1000 CAN PO Dextrose 25 GM ONCE ONE 09/16 0700 DC 09/16 IV 09/16 0701 0805 Diltiazem HCl 125 MG Q12H 09/15 1500 AC 09/16 Dextrose/Water 100 ML IV 1537 Heparin Sodium 5,000 UNIT Q8 09/15 2200 AC 09/16 (Porcine) SC 1422 Insulin Human Regular 10 UNITS ONCE ONE 09/16 0700 DC 09/16 IV 09/16 0701 0805 Ipratropium [place] 2.5 ML TID 09/15 2200 AC 09/16 INH 1421 Ipratropium [place] 2.5 ML Q6-PRN PRN 09/15 1715 DC INH Lidocaine 1 PAT 0600 09/16 0600 DC EXT Lidocaine 1 PAT 0600 09/16 0600 AC 09/16 EXT 0639 Methylprednisolone 40 MG Q12 09/16 1000 DC 09/16 IV 0922 Metoprolol Succinate 37.5 MG DAILY 09/16 1000 DC PO Metoprolol Succinate 37.5 MG DAILY 09/16 1000 AC 09/16 PO 0637 Morphine Sulfate 1 MG Q6P PRN 09/16 1530 AC 09/16 IV 1537 Multivitamins 1 TAB DAILY 09/16 1000 DC PO Multivitamins 1 TAB DAILY 09/16 1000 AC 09/16 PO 0923 Omeprazole 40 MG DAILY AC 09/16 0700 AC 09/16 PO 0923 Patient Medication 1 UNIT ONE NR 09/15 1730 [facility] 09/15 1800 Patient Medication 1 UNIT ONE NR 09/15 1730 [facility] 09/15 1800 Patient Medication 1 UNIT ONE NR 09/15 1730 [facility] 09/15 1800 Prednisone 50 MG DAILY 09/17 1000 AC PO Prednisone 50 MG DAILY 09/16 1000 DC PO 09/18 1000 Roflumilast 500 MCG DAILY 09/15 1715 AC 09/16 PO 0923 Sodium Polystyrene 60 ML ONCE ONE 09/15 1830 DC 09/15 Sulfonate PO 09/15 1831 2154 Results Pertinent Lab Results: Laboratory Tests 09/16 09/16 1235 0750 Blood Gas pH (7.35 - 7.45 PH) 7.35 pCO2 (35 - 45 TORR) 41 pO2 (80 - 100 TORR) 101 H HCO3 (21 - 28 MEQ/L) 22 ABG O2 Sat (Measured) (>96.0 %) 96.0 Carboxyhemoglobin (1.5 - 5.0 %) 0.3 L O2 Concentration % 30% Respiration Rate (BPM) 20 O2 Delivery Method VISION Vent Mode ST Expiratory Pressure (CM H2O P) 6 Inspiratory Pressure (CM H2O P) 18 Chemistry Troponin I (<0.11 ng/ml) 0.16 *H Miscellaneous Phlebotomy Draw Site RIGHT RADIAL 09/16 09/16 09/16 0520 0500 0015 Chemistry Sodium (137 - 145 mmol/L) 132 L Potassium (3.5 - 5.1 mmol/L) 6.1 *H Chloride (98 - 107 mmol/L) 87 L Carbon Dioxide (22 - 30 mmol/L) 23 Anion Gap (5 - 16) 22 H BUN (9 - 20 mg/dL) 52 H Creatinine (0.7 - 1.2 mg/dL) 8.2 *H Estimated GFR (>60 ml/min) 6 L Glucose (65 - 99 mg/dL) 118 H Calcium (8.4 - 10.2 mg/dL) 8.9 Phosphorus (2.5 - 4.5 mg/dL) 7.0 H Magnesium (1.6 - 2.3 mg/dL) 2.1 Cancelled Total Bilirubin (0.2 - 1.3 mg/dL) 1.0 AST (17 - 59 U/L) 20 ALT (21 - 72 U/L) 35 Troponin I (<0.11 ng/ml) 0.20 *H 0.18 *H Albumin (3.5 - 5.0 g/dL) 3.9 Hematology CBC w Diff NO MAN DIFF REQ WBC (4.8 - 10.8 /CUMM) 5.8 RBC (4.70 - 6.10 /CUMM) 3.64 L Hgb (14.0 - 18.0 G/DL) 10.6 L Hct (42 - 52 %) 32.7 L MCV (80.0 - 94.0 FL) 89.9 MCH (27.0 - 31.0 PG) 29.3 RDW (11.5 - 14.5 %) 15.5 H Plt Count (130 - 400 /CUMM) 115 L MPV (7.4 - 10.4 FL) 11.6 H Gran % (42.2 - 75.2 %) 85.8 H Lymphocytes % (20.5 - 51.1 %) 6.8 L Monocytes % (1.7 - 9.3 %) 7.3 Eosinophils % (0 - 5 %) 0 Basophils % (0.0 - 2.0 %) 0.1 Absolute Granulocytes (1.4 - 6.5 /CUMM) 5.0 Absolute Lymphocytes (1.2 - 3.4 /CUMM) 0.4 L Absolute Monocytes (0.10 - 0.60 /CUMM) 0.4 Absolute Eosinophils (0.0 - 0.7 /CUMM) 0 Absolute Basophils (0.0 - 0.2 /CUMM) 0 PUBS MCHC (33.0 - 37.0 G/DL) 32.6 L 09/15 1710 1625 1614 Blood Gas pH (7.35 - 7.45 PH) 7.40 pCO2 (35 - 45 TORR) 38 pO2 (80 - 100 TORR) 107 H HCO3 (21 - 28 MEQ/L) 23 ABG O2 Sat (Measured) (>96.0 %) 97.0 P-50 (Temp Corrected) N Carboxyhemoglobin (1.5 - 5.0 %) 0.2 L O2 Concentration % 35% Temperature (97.0 - 100.0 FARH) 99.9 Respiration Rate (BPM) 20 O2 Delivery Method BIPAP Vent Mode ST Expiratory Pressure (CM H2O P) 6 Inspiratory Pressure (CM H2O P) 18 Chemistry Plasma Potassium (3.4 - 4.4 MMOL/L) 5.8 H Troponin I Cancelled Coagulation PT Cancelled INR Cancelled Miscellaneous Phlebotomy Draw Site RIGHT RADIAL Urines Urine Color Cancelled Urine Clarity Cancelled Urine pH Cancelled Ur Specific [place] Cancelled Urine Protein Cancelled Urine Ketones Cancelled Urine Nitrite Cancelled Urine Bilirubin Cancelled Urine Urobilinogen Cancelled Ur Leukocyte Esterase Cancelled Ur Microscopic Cancelled Urine Hemoglobin Cancelled Urine Glucose Cancelled 09/15 1355 Chemistry Sodium (137 - 145 mmol/L) 135 L Potassium (3.5 - 5.1 mmol/L) 6.0 *H Chloride (98 - 107 mmol/L) 87 L Carbon Dioxide (22 - 30 mmol/L) 28 Anion Gap (5 - 16) 20 H BUN (9 - 20 mg/dL) 39 H Creatinine (0.7 - 1.2 mg/dL) 6.6 *H Estimated GFR (>60 ml/min) 8 L BUN/Creatinine Ratio (7 - 25 %) 5.9 L Glucose (65 - 99 mg/dL) 116 H Calcium (8.4 - 10.2 mg/dL) 9.3 Magnesium (1.6 - 2.3 mg/dL) 1.9 Troponin I (<0.11 ng/ml) 0.08 Coagulation PT (9.4 - 12.5 SEC) 13.3 H INR (0.90 - 1.17) 1.27 H APTT (25 - 37 SEC) 33 D-Dimer (70 - 232 ng/ml) 814 H Hematology CBC w Diff MAN DIFF ORDERED WBC (4.8 - 10.8 /CUMM) 12.0 H RBC (4.70 - 6.10 /CUMM) 4.02 L Hgb (14.0 - 18.0 G/DL) 11.8 L Hct (42 - 52 %) 36.4 L MCV (80.0 - 94.0 FL) 90.4 MCH (27.0 - 31.0 PG) 29.3 RDW (11.5 - 14.5 %) 15.3 H Plt Count (130 - 400 /CUMM) 151 MPV (7.4 - 10.4 FL) 11.9 H Gran % (42.2 - 75.2 %) 84.3 H Lymphocytes % (20.5 - 51.1 %) 7.8 L Monocytes % (1.7 - 9.3 %) 7.0 Eosinophils % (0 - 5 %) 0.5 Basophils % (0.0 - 2.0 %) 0.4 Absolute Granulocytes (1.4 - 6.5 /CUMM) 10.1 H Segmented Neutrophils (42.2 - 75.2 %) 75 Band Neutrophils (0.0 - 5.0 %) 8 H Absolute Lymphocytes (1.2 - 3.4 /CUMM) 0.9 L Lymphocytes (20.5 - 51.1 %) 9 L Monocytes (1.7 - 9.3 %) 7 Absolute Monocytes (0.10 - 0.60 /CUMM) 0.8 H Eosinophils (0 - 5.0 %) 1 Absolute Eosinophils (0.0 - 0.7 /CUMM) 0.1 Absolute Basophils (0.0 - 0.2 /CUMM) 0.1 Platelet Estimate (ADEQUATE) VERIFIED BY SMEAR Polychromasia 1+ Poikilocytosis 1+ Anisocytosis 1+ Ovalocytes 1+ Stomatocytes 1+ PUBS MCHC (33.0 - 37.0 G/DL) 32.5 L Imaging/Other Studies: EXAM TYPE: RAD - XRY-PORTABLE CHEST XRAY EXAMINATION: XR PORTABLE CHEST CLINICAL INFORMATION: Worsening shortness of breath. Pneumonia. COPD. COMPARISON: CTA thorax 09/15/2016. Chest radiograph 09/15/2016. TECHNIQUE: Portable view of the chest was obtained. FINDINGS: The cardiac silhouette is enlarged. There is vascular congestion without interstitial or alveolar edema. No obvious consolidation is seen. The findings have shown improvement from 09/15/2016. A vascular stent is seen in the left axillary, subclavian vein region. IMPRESSION: Enlarged cardiac silhouette with vascular congestion. Interval improvement in the patchy right lower lobe opacity.
--- NOTE | 2016-09-16 17:23 | NUR ---
@1700-PT STARTED ON DIALYSIS. WILL WAIT AND ADMINISTER IV ABX DUE AT THIS TIME UNTIL AFTER DIALYSIS COMPLETE. CONT TO MONITOR CLOSELY. CALL LIVAN MERA.
[2016-09-17] VITALS: BP 154/90
--- NOTE | 2016-09-17 00:59 | NUR ---
PT ALERT AND ORIENTED. DENIES PAIN AT THIS TIME. MEDICATED WITH BENADRYL 50 MG PO FOR INABILITY TO SLEEP. 1ST DEGREE AVB 90'S. ON CARDIZEM GTT AT 12.5MG/H. MANUAL BP 154/90. ABDOMEN SOFT, NORMOACTIVE BS. HE IS A HEMODIALYSIS PT, PT DNV. SATURATION 97% ON 4L O2, LUNGS SOUND CLEAR.
[2016-09-17 04:37] LABS: ABSOLUTE BASOPHIL COUNT 0 /CUMM (0.0-0.2); ABSOLUTE EOSINOPHIL COUNT 0 /CUMM (0.0-0.7); ABSOLUTE GRANULOCYTE CT 7.6 /CUMM (1.4-6.5); ABSOLUTE LYMPH COUNT 0.6 /CUMM (1.2-3.4); ABSOLUTE MONOCYTE COUNT 0.6 /CUMM (0.10-0.60); BASOPHIL % 0.1 % (0.0-2.0); EOSINOPHIL % 0 % (0-5); GRANULOCYTE % 86.7 % (42.2-75.2); MEAN CORPUSCULAR HGB 29.2 PG (27.0-31.0); MEAN CORPUSCULAR HGB CONC 32.2 G/DL (33.0-37.0); MEAN CORPUSCULAR VOLUME 90.5 FL (80.0-94.0); MEAN PLATELET VOLUME 11.3 FL (7.4-10.4); PLATELET COUNT 137 /CUMM (130-400); RBC DISTRIBUTION WIDTH 15.3 % (11.5-14.5); RED BLOOD CELL CT 3.76 /CUMM (4.70-6.10)
[2016-09-17 04:41] LABS: WHITE BLOOD CELL COUNT 8.8 /CUMM (4.8-10.8)
[2016-09-17 08:00] VITALS: BP 162/80
--- NOTE | 2016-09-17 08:12 | NUR ---
0800: RECEIVED PT IN CHAIR. A+OX3, ON 4L NC, LUNGS CLEAR IN UPPER LOBES, DIMINISHED IN LOWER. NSR ON MONITOR. MANUAL B/P 162/80. AFEBRILE. DENIES CHEST PAIN. ABDOMEN OBESE, SOFT. +BS. LAST BM 1-13. PT DOES NOT VOID HE IS DIALYSIS PT. L AV FISTULA IN PLACE, +THRILL + BRUIT. CARDIZEM GTT AT 12.5MG OR 12.5ML/HR. HEART RATE REMAINS STABLE. AWAITING DIALYSIS TIME FOR TODAY, MEDS ON HOLD UNTIL THEN. WILL MONITOR.
--- NOTE | 2016-09-17 09:34 | PN- CRCU ---
Subjective HPI/Critical Care Issues: Doing well Afebrile VSS Chest mild crackles CVS S1s2 berhane Abd soft no edema Heart rate is controlled sinus rhythm Troponin elevation noted Renal evaluation noted from yesterday Off BiPAP Objective Current Medications: Current Medications Sig/Zoe Start time Last Medication Dose Route Stop Time Status Admin Acetaminophen/ 1 TAB DAILY PRN 09/15 1730 AC Hydrocodone Bitart PO Atorvastatin Calcium 5 MG DAILY 09/16 1000 DC PO Atorvastatin Calcium 5 MG DAILY 09/16 1000 AC 09/16 PO 0923 Calcium Acetate 2,001 MG WM 09/16 0800 AC 09/16 PO 2005 Ceftazidime 1,000 MG DAILY@1700 09/15 1700 AC 09/16 IV 2005 Celecoxib 100 MG DAILY 09/16 1000 CAN PO Diltiazem HCl 125 MG Q12H 09/15 1500 AC 09/17 Dextrose/Water 100 ML IV 0352 Diphenhydramine HCl 50 MG .STK-MED ONE 09/17 0006 DC PO 09/17 0007 Diphenhydramine HCl 50 MG ONCE ONE 09/16 2345 DC 09/17 PO 09/16 2346 0011 Docusate Sodium 100 MG DAILY NEEDED PRN 09/16 2145 AC 09/16 PO 2148 Epoetin [place] 6,000 UNIT MoWeFr PRN 09/17 0845 AC IV Heparin Sodium 5,000 UNIT Q8 09/15 2200 AC 09/17 (Porcine) SC 0552 Ipratropium [place] 2.5 ML TID 09/15 2200 AC 09/17 INH 0857 Lidocaine 1 PAT 0600 09/16 0600 AC 09/16 EXT 0639 Methylprednisolone 40 MG Q12 09/16 1000 DC 09/16 IV 0922 Metoprolol Succinate 37.5 MG DAILY 09/16 1000 DC PO Metoprolol Succinate 37.5 MG DAILY 09/16 1000 AC 09/16 PO 0637 Morphine Sulfate 1 MG Q6P PRN 09/16 1530 AC 09/16 IV 1537 Multivitamins 1 TAB DAILY 09/16 1000 DC PO Multivitamins 1 TAB DAILY 09/16 1000 AC 09/16 PO 0923 Omeprazole 40 MG DAILY AC 09/16 0700 AC 09/17 PO 0553 Prednisone 50 MG DAILY 09/17 1000 AC PO Prednisone 50 MG DAILY 09/16 1000 DC PO 09/18 1000 Roflumilast 500 MCG DAILY 09/15 1715 AC 09/16 PO 0923 Vital Signs & I&O Last 24 Hrs of Vitals and I&O: Vital Signs Date Time Temp Pulse Resp B/P Pulse O2 O2 Flow FiO2 Ox Delivery Rate 09/17 0859 96 Nasal 4.0L Cannula 09/17 08 Nasal 4.0L Cannula 09/17 08 97.6 84 20 162/80 98 Nasal 4.0L Cannula 09/17 0414 94 Nasal 4.0L Cannula 09/17 0400 95 Nasal 4.0L Cannula 09/17 0000 97 Nasal 4.0L Cannula 09/17 0000 97.4 94 16 154/90 97 Nasal 4.0L Cannula 09/16 2031 94 Nasal 4.0L Cannula 09/16 1999 94 Nasal 4.0L Cannula 09/16 1600 96.8 91 24 150/78 98 Nasal 4.0L Cannula 09/16 1600 96 Nasal 4.0L Cannula 09/16 1432 94 Nasal 4.0L Cannula 09/16 1220 90 98 09/16 1200 97 BIPAP 30% Intake & Output 09/17 1600 09/17 0800 09/17 0000 Intake Total 393 336 Output Total 1999 Balance 393 -1664 Intake, IV 93 96 Intake, Oral 300 240 Output, 2000 Dialysate Output, Urine 0 Patient 188 lb 190 lb Weight Laboratory Tests 09/17 09/16 0400 1235 Chemistry Sodium (137 - 145 mmol/L) 135 L Potassium (3.5 - 5.1 mmol/L) 5.5 H Chloride (98 - 107 mmol/L) 94 L Carbon Dioxide (22 - 30 mmol/L) 24 Anion Gap (5 - 16) 17 H BUN (9 - 20 mg/dL) 54 H Creatinine (0.7 - 1.2 mg/dL) 6.8 *H Estimated GFR (>60 ml/min) 8 L Glucose (65 - 99 mg/dL) 104 H Calcium (8.4 - 10.2 mg/dL) 9.1 Phosphorus (2.5 - 4.5 mg/dL) 9.2 H Magnesium (1.6 - 2.3 mg/dL) 2.1 Total Bilirubin (0.2 - 1.3 mg/dL) 0.9 AST (17 - 59 U/L) 37 ALT (21 - 72 U/L) 34 Troponin I (<0.11 ng/ml) 0.16 *H Albumin (3.5 - 5.0 g/dL) 4.1 Hematology CBC w Diff MAN DIFF ORDERED WBC (4.8 - 10.8 /CUMM) 8.8 RBC (4.70 - 6.10 /CUMM) 3.76 L Hgb (14.0 - 18.0 G/DL) 11.0 L Hct (42 - 52 %) 34.0 L MCV (80.0 - 94.0 FL) 90.5 MCH (27.0 - 31.0 PG) 29.2 RDW (11.5 - 14.5 %) 15.3 H Plt Count (130 - 400 /CUMM) 137 MPV (7.4 - 10.4 FL) 11.3 H Gran % (42.2 - 75.2 %) 86.7 H Lymphocytes % (20.5 - 51.1 %) 6.7 L Monocytes % (1.7 - 9.3 %) 6.5 Eosinophils % (0 - 5 %) 0 Basophils % (0.0 - 2.0 %) 0.1 Absolute Granulocytes (1.4 - 6.5 /CUMM) 7.6 H Segmented Neutrophils (42.2 - 75.2 %) 73 Band Neutrophils (0.0 - 5.0 %) 12 H Absolute Lymphocytes (1.2 - 3.4 /CUMM) 0.6 L Lymphocytes (20.5 - 51.1 %) 9 L Monocytes (1.7 - 9.3 %) 3 Absolute Monocytes (0.10 - 0.60 /CUMM) 0.6 Absolute Eosinophils (0.0 - 0.7 /CUMM) 0 Absolute Basophils (0.0 - 0.2 /CUMM) 0 Metamyelocytes (0.0 - 1.0 %) 3 H Platelet Estimate (ADEQUATE) DECREASED Polychromasia 1+ PUBS MCHC (33.0 - 37.0 G/DL) 32.2 L 09/16 09/16 0750 0520 Blood Gas pH (7.35 - 7.45 PH) 7.35 pCO2 (35 - 45 TORR) 41 pO2 (80 - 100 TORR) 101 H HCO3 (21 - 28 MEQ/L) 22 ABG O2 Sat (Measured) (>96.0 %) 96.0 Carboxyhemoglobin (1.5 - 5.0 %) 0.3 L O2 Concentration % 30% Respiration Rate (BPM) 20 O2 Delivery Method VISION Vent Mode ST Expiratory Pressure (CM H2O P) 6 Inspiratory Pressure (CM H2O P) 18 Chemistry Sodium (137 - 145 mmol/L) 132 L Potassium (3.5 - 5.1 mmol/L) 6.1 *H Chloride (98 - 107 mmol/L) 87 L Carbon Dioxide (22 - 30 mmol/L) 23 Anion Gap (5 - 16) 22 H BUN (9 - 20 mg/dL) 52 H Creatinine (0.7 - 1.2 mg/dL) 8.2 *H Estimated GFR (>60 ml/min) 6 L Glucose (65 - 99 mg/dL) 118 H Calcium (8.4 - 10.2 mg/dL) 8.9 Phosphorus (2.5 - 4.5 mg/dL) 7.0 H Magnesium (1.6 - 2.3 mg/dL) 2.1 Total Bilirubin (0.2 - 1.3 mg/dL) 1.0 AST (17 - 59 U/L) 20 ALT (21 - 72 U/L) 35 Troponin I (<0.11 ng/ml) 0.20 *H Albumin (3.5 - 5.0 g/dL) 3.9 Hematology CBC w Diff NO MAN DIFF REQ WBC (4.8 - 10.8 /CUMM) 5.8 RBC (4.70 - 6.10 /CUMM) 3.64 L Hgb (14.0 - 18.0 G/DL) 10.6 L Hct (42 - 52 %) 32.7 L MCV (80.0 - 94.0 FL) 89.9 MCH (27.0 - 31.0 PG) 29.3 RDW (11.5 - 14.5 %) 15.5 H Plt Count (130 - 400 /CUMM) 115 L MPV (7.4 - 10.4 FL) 11.6 H Gran % (42.2 - 75.2 %) 85.8 H Lymphocytes % (20.5 - 51.1 %) 6.8 L Monocytes % (1.7 - 9.3 %) 7.3 Eosinophils % (0 - 5 %) 0 Basophils % (0.0 - 2.0 %) 0.1 Absolute Granulocytes (1.4 - 6.5 /CUMM) 5.0 Absolute Lymphocytes (1.2 - 3.4 /CUMM) 0.4 L Absolute Monocytes (0.10 - 0.60 /CUMM) 0.4 Absolute Eosinophils (0.0 - 0.7 /CUMM) 0 Absolute Basophils (0.0 - 0.2 /CUMM) 0 PUBS MCHC (33.0 - 37.0 G/DL) 32.6 L Miscellaneous Phlebotomy Draw Site RIGHT RADIAL 09/16 09/16 09/15 09/15 0500 0015 2000 1710 Chemistry Plasma Potassium (3.4 - 4.4 MMOL/L) 5.8 H Magnesium Cancelled Troponin I (<0.11 ng/ml) 0.18 *H Cancelled Coagulation PT Cancelled INR Cancelled 09/15 09/15 1625 1614 Blood Gas pH (7.35 - 7.45 PH) 7.40 pCO2 (35 - 45 TORR) 38 pO2 (80 - 100 TORR) 107 H HCO3 (21 - 28 MEQ/L) 23 ABG O2 Sat (Measured) (>96.0 %) 97.0 P-50 (Temp Corrected) N Carboxyhemoglobin (1.5 - 5.0 %) 0.2 L O2 Concentration % 35% Temperature (97.0 - 100.0 FARH) 99.9 Respiration Rate (BPM) 20 O2 Delivery Method BIPAP Vent Mode ST Expiratory Pressure (CM H2O P) 6 Inspiratory Pressure (CM H2O P) 18 Miscellaneous Phlebotomy Draw Site RIGHT RADIAL Urines Urine Color Cancelled Urine Clarity Cancelled Urine pH Cancelled Ur Specific [place] Cancelled Urine Protein Cancelled Urine Ketones Cancelled Urine Nitrite Cancelled Urine Bilirubin Cancelled Urine Urobilinogen Cancelled Ur Leukocyte Esterase Cancelled Ur Microscopic Cancelled Urine Hemoglobin Cancelled Urine Glucose Cancelled 09/15 1355 Chemistry Sodium (137 - 145 mmol/L) 135 L Potassium (3.5 - 5.1 mmol/L) 6.0 *H Chloride (98 - 107 mmol/L) 87 L Carbon Dioxide (22 - 30 mmol/L) 28 Anion Gap (5 - 16) 20 H BUN (9 - 20 mg/dL) 39 H Creatinine (0.7 - 1.2 mg/dL) 6.6 *H Estimated GFR (>60 ml/min) 8 L BUN/Creatinine Ratio (7 - 25 %) 5.9 L Glucose (65 - 99 mg/dL) 116 H Calcium (8.4 - 10.2 mg/dL) 9.3 Magnesium (1.6 - 2.3 mg/dL) 1.9 Troponin I (<0.11 ng/ml) 0.08 Coagulation PT (9.4 - 12.5 SEC) 13.3 H INR (0.90 - 1.17) 1.27 H APTT (25 - 37 SEC) 33 D-Dimer (70 - 232 ng/ml) 814 H Hematology CBC w Diff MAN DIFF ORDERED WBC (4.8 - 10.8 /CUMM) 12.0 H RBC (4.70 - 6.10 /CUMM) 4.02 L Hgb (14.0 - 18.0 G/DL) 11.8 L Hct (42 - 52 %) 36.4 L MCV (80.0 - 94.0 FL) 90.4 MCH (27.0 - 31.0 PG) 29.3 RDW (11.5 - 14.5 %) 15.3 H Plt Count (130 - 400 /CUMM) 151 MPV (7.4 - 10.4 FL) 11.9 H Gran % (42.2 - 75.2 %) 84.3 H Lymphocytes % (20.5 - 51.1 %) 7.8 L Monocytes % (1.7 - 9.3 %) 7.0 Eosinophils % (0 - 5 %) 0.5 Basophils % (0.0 - 2.0 %) 0.4 Absolute Granulocytes (1.4 - 6.5 /CUMM) 10.1 H Segmented Neutrophils (42.2 - 75.2 %) 75 Band Neutrophils (0.0 - 5.0 %) 8 H Absolute Lymphocytes (1.2 - 3.4 /CUMM) 0.9 L Lymphocytes (20.5 - 51.1 %) 9 L Monocytes (1.7 - 9.3 %) 7 Absolute Monocytes (0.10 - 0.60 /CUMM) 0.8 H Eosinophils (0 - 5.0 %) 1 Absolute Eosinophils (0.0 - 0.7 /CUMM) 0.1 Absolute Basophils (0.0 - 0.2 /CUMM) 0.1 Platelet Estimate (ADEQUATE) VERIFIED BY SMEAR Polychromasia 1+ Poikilocytosis 1+ Anisocytosis 1+ Ovalocytes 1+ Stomatocytes 1+ PUBS MCHC (33.0 - 37.0 G/DL) 32.5 L Microbiology Date/Time Procedure - Status Source Growth 09/15 1710 Blood Culture - RES BLOOD 09/15 1658 Blood Culture - RES BLOOD 09/15 1614 Urine Culture - CAN URINE ROUT Cancelled: SPECIMEN NOT RECEIVED IN LABORATORY 09/15 161 Respiratory Culture - CAN LOWER RESP Cancelled: SPECIMEN NOT RECEIVED IN LABORATORY 09/15 1613 Gram Stain - CAN LOWER RESP Cancelled: SPECIMEN NOT RECEIVED IN LABORATORY Impression/Plan Impression/Plan Impression/Plan: CT scan of the chest IMPRESSION: 1. No pulmonary embolism. 2. No significant interval change in appearance of the thoracic aorta, with diffuse atherosclerotic disease as well as multiple small outpouchings/saccular aneurysms. This was described on prior CTA chest. 3. There is multifocal parenchymal opacification in the right lung which is most suspicious for an infectious/inflammatory process. 4. Bilateral emphysema and bronchiectasis. 5. Diffuse coronary artery calcification. 6. Additional findings as described. VTE: Negative. Significant data Echocardiogram pending chest x-ray done showed vascular congestion improvement in opacity of the chest in the right lower lobe Potassium still elevated White count is 8.8 hemoglobin 11.0 so far the cultures have been unremarkable 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 Now in sinus rhythm with trace elevated troponin appears to be more of a demand ischemia * Acute hypoxic resp failure due to Fluid overload, chronic respinsuff from end stage copd, vicky, ohv, pulm htn, now * ESRD with hyperkalemia, with fluid overload with mild hyperkalemia clinically stable, patient is clinically better now as he is having dialysis * Recent right-sided musculoskeletal chest pain, with underlying atelectasis versus infiltrate * Sig copd with no evidence of sig exacerbation as he has no significant wheezing * End Stage copd with Previous bronchiectasis. 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 However pna cannot be excluded as he was on steroids and this may need to be treated temporarily until he improves * SIg thoracic aneurysm saccular in nature with no worsening of his aneurysm or any dissection by recent ct * Obstructive sleep apnea on CPAP compliant * Chronic steroid use, hence immunosuppressed * Morbid obesity with noncompliance * Previous history of biliary sepsis obstruction no no evidence suggestive of that with previous stent with pneumobilia * No pe CTA negative REC Continue current Continue ceftaz, for now and we will switch him to by mouth Cipro twice a day and we will dose him per renal function Diltiazem per cardiology, echocardiogram 50 mg of prednisone with a slow taper As needed morphine Sputum culture if he has any Systemic anticoagulation may be necessary we'll leave it up to cardiology Ipratropium nebulizer therapy 3 times a day Avoid albuterol for now Continue Lidoderm patch Use BiPAP as needed, during the day and at bedtime. From tomorrow he can go back to his CPAP and ask his to bring his CPAP machine Code Status: Full Code
--- NOTE | 2016-09-17 10:55 | PN- Cardiology ---
Subjective Subjective: The patient is seen for follow-up. He was admitted on September 15 for COPD exacerbation after presenting with progressive shortness of breath. He was noted to have narrow complex tachycardia, which was felt to be more likely sinus tachycardia rather than SVT considering that it did not respond to adenosine. He was noted to have volume overload and mildly elevated potassium. An extra session of dialysis was performed yesterday with ultrafiltration. Ventricular rate was brought under control on diltiazem drip. He is noted to have right- sided atypical chest pain. He has end-stage COPD with prior bronchiectasis, which she is on steroids. He was noted to have a right-sided infiltrate, and he is being treated for possible pneumonia. He has a thoracic aortic saccular aneurysm which is stable. Objective Vital Signs and I&Os Vital Signs Date Time Temp Pulse Resp B/P Pulse O2 O2 Flow FiO2 Ox Delivery Rate 09/17 0859 96 Nasal 4.0L Cannula 09/17 0800 Nasal 4.0L Cannula 09/17 08 97.6 84 20 162/80 98 Nasal 4.0L Cannula 09/17 0414 94 Nasal 4.0L Cannula 09/17 0400 95 Nasal 4.0L Cannula 09/17 0000 97 Nasal 4.0L Cannula 09/17 0000 97.4 94 16 154/90 97 Nasal 4.0L Cannula 09/16 2031 94 Nasal 4.0L Cannula 09/16 2000 94 Nasal 4.0L Cannula 09/16 1600 96.8 91 24 150/78 98 Nasal 4.0L Cannula 09/16 1600 96 Nasal 4.0L Cannula 09/16 1432 94 Nasal 4.0L Cannula 09/16 1220 90 98 09/16 1200 97 BIPAP 30% Intake & Output 09/17 1600 09/17 0800 09/17 0000 09/16 1600 09/16 0800 09/16 0000 Intake Total 393 336 390 185 100 Output Total 1999 0 0 0 Balance 393 -1664 390 185 100 Intake, IV 93 96 150 95 40 Intake, Oral 300 240 240 90 60 Number 0 0 Bowel Movements Output, 1999 Dialysate Output, Urine 0 0 0 0 Patient 188 lb 190 lb 195 lb 198 lb Weight Physical Exam: Gen: The patient is in no acute distress HEENT: Normal nose, ears, and oropharynx. Pupils equal bilaterally. Conjunctiva normal. Neck: Supple with no JVD, no masses, and no thyromegaly Lungs: Scattered rhonchi bilaterally with normal respiratory effort Heart: RRR, S1, S2, 1/6 systolic murmur. No peripheral edema, 1+ pulses in the lower extremities bilaterally Abdomen: Soft, nontender, no masses. No hepatomegaly. No splenomegaly Extremities: No clubbing or cyanosis. Normal muscle strength in the upper and lower extremities Skin: Normal skin turgor with no skin ulcers or lesions noted. Neuro: Cranial nerves intact. Sensation intact Psych: Alert and oriented 3 with appropriate affect Current Medications: Current Medications Sig/Zoe Start time Last Medication Dose Route Stop Time Status Admin Acetaminophen/ 1 TAB DAILY PRN 09/15 1730 AC Hydrocodone Bitart PO Atorvastatin Calcium 5 MG DAILY 09/16 1000 AC 09/16 PO 0923 Calcium Acetate 2,001 MG WM 09/16 0800 AC 09/16 PO 2005 Ceftazidime 1,000 MG DAILY@1700 09/15 1700 AC 09/16 IV 2005 Diltiazem HCl 125 MG Q12H 09/15 1500 AC 09/17 Dextrose/Water 100 ML IV 0352 Diphenhydramine HCl 50 MG .STK-MED ONE 09/17 0006 DC PO 09/17 0007 Diphenhydramine HCl 50 MG ONCE ONE 09/16 2345 DC 09/17 PO 09/16 2346 0011 Docusate Sodium 100 MG DAILY NEEDED PRN 09/16 2145 AC 09/16 PO 2148 Epoetin Ryan 6,000 UNIT MoWeFr PRN 09/17 0845 AC IV Heparin Sodium 5,000 UNIT Q8 09/15 2200 AC 09/17 (Porcine) SC 0552 Ipratropium [place] 2.5 ML TID 09/15 2200 AC 09/17 INH 0857 Lidocaine 1 PAT 0600 09/16 0600 AC 09/16 EXT 0639 Metoprolol Succinate 37.5 MG DAILY 09/16 1000 AC 09/16 PO 0637 Morphine Sulfate 1 MG Q6P PRN 09/16 1530 AC 09/16 IV 1537 Multivitamins 1 TAB DAILY 09/16 1000 AC 09/16 PO 0923 Omeprazole 40 MG DAILY AC 09/16 0700 AC 09/17 PO 0553 Prednisone 50 MG DAILY 09/17 1000 AC PO Prednisone 50 MG DAILY 09/16 1000 DC PO 09/18 1000 Roflumilast 500 MCG DAILY 09/15 1715 AC 09/16 PO 0923 Results Last 48 Hrs of Labs/Mics: Laboratory Tests 09/17/16 0400: Anion Gap 17 H, Estimated GFR 8 L, Glucose 104 H, Calcium 9.1, Phosphorus 9.2 H, Magnesium 2.1, Total Bilirubin 0.9, AST 37, ALT 34, Albumin 4.1, CBC w Diff MAN DIFF ORDERED, RBC 3.76 L, MCV 90.5, MCH 29.2, RDW 15.3 H, MPV 11.3 H, Gran % 86.7 H, Lymphocytes % 6.7 L, Monocytes % 6.5, Eosinophils % 0, Basophils % 0.1, Absolute Granulocytes 7.6 H, Segmented Neutrophils 73, Band Neutrophils 12 H, Absolute Lymphocytes 0.6 L, Lymphocytes 9 L, Monocytes 3, Absolute Monocytes 0.6, Absolute Eosinophils 0, Absolute Basophils 0, Metamyelocytes 3 H, Platelet Estimate DECREASED, Polychromasia 1+, PUBS MCHC 32.2 L 09/16/16 1235: Troponin I 0.16 *H 09/16/16 0750: pH 7.35, pCO2 41, pO2 101 H, HCO3 22, ABG O2 Sat (Measured) 96.0, Carboxyhemoglobin 0.3 L, O2 Concentration % 30%, Respiration Rate 20, O2 Delivery Method VISION, Vent Mode ST, Expiratory Pressure 6, Inspiratory Pressure 18, Phlebotomy Draw Site RIGHT RADIAL 09/16/16 0520: Anion Gap 22 H, Estimated GFR 6 L, Glucose 118 H, Calcium 8.9, Phosphorus 7.0 H, Magnesium 2.1, Total Bilirubin 1.0, AST 20, ALT 35, Troponin I 0.20 *H, Albumin 3.9, CBC w Diff NO MAN DIFF REQ, RBC 3.64 L, MCV 89.9, MCH 29.3, RDW 15.5 H, MPV 11.6 H, Gran % 85.8 H, Lymphocytes % 6.8 L, Monocytes % 7.3, Eosinophils % 0, Basophils % 0.1, Absolute Granulocytes 5.0, Absolute Lymphocytes 0.4 L, Absolute Monocytes 0.4, Absolute Eosinophils 0, Absolute Basophils 0, PUBS MCHC 32.6 L 09/16/16 0500: Magnesium Cancelled 09/16/16 0015: Troponin I 0.18 *H 09/15/16 2000: Troponin I Cancelled, PT Cancelled, INR Cancelled 09/15/16 1710: Plasma Potassium 5.8 H 09/15/16 1625: pH 7.40, pCO2 38, pO2 107 H, HCO3 23, ABG O2 Sat (Measured) 97.0, P-50 (Temp Corrected) N, Carboxyhemoglobin 0.2 L, O2 Concentration % 35%, Temperature 99.9 , Respiration Rate 20, O2 Delivery Method BIPAP, Vent Mode ST, Expiratory Pressure 6, Inspiratory Pressure 18, Phlebotomy Draw Site RIGHT RADIAL 09/15/16 1614: Urine Color Cancelled, Urine Clarity Cancelled, Urine pH Cancelled, Ur Specific [place] Cancelled, Urine Protein Cancelled, Urine Ketones Cancelled, Urine Nitrite Cancelled, Urine Bilirubin Cancelled, Urine Urobilinogen Cancelled, Ur Leukocyte Esterase Cancelled, Ur Microscopic Cancelled, Urine Hemoglobin Cancelled, Urine Glucose Cancelled 09/15/16 1355: Anion Gap 20 H, Estimated GFR 8 L, BUN/Creatinine Ratio 5.9 L, Glucose 116 H , Calcium 9.3, Magnesium 1.9, Troponin I 0.08, PT 13.3 H, INR 1.27 H, APTT 33, D-Dimer 814 H, CBC w Diff MAN DIFF ORDERED, RBC 4.02 L, MCV 90.4, MCH 29.3, RDW 15.3 H, MPV 11.9 H, Gran % 84.3 H, Lymphocytes % 7.8 L, Monocytes % 7.0, Eosinophils % 0.5, Basophils % 0.4, Absolute Granulocytes 10.1 H, Segmented Neutrophils 75, Band Neutrophils 8 H, Absolute Lymphocytes 0.9 L, Lymphocytes 9 L, Monocytes 7, Absolute Monocytes 0.8 H, Eosinophils 1, Absolute Eosinophils 0.1, Absolute Basophils 0.1, Platelet Estimate VERIFIED BY SMEAR, Polychromasia 1+, Poikilocytosis 1+, Anisocytosis 1+, Ovalocytes 1+, Stomatocytes 1+, PUBS MCHC 32.5 L Recent Imaging Studies: EKG tracing from September 16 at 002 is independently reviewed, and reveals sinus rhythm at 93, first-degree AV block, borderline T-wave abnormality CXR 09/16/15: Enlarged cardiac silhouette with vascular congestion. Interval improvement in the patchy right lower lobe opacity. CTA Chest 09/15/15: 1. No pulmonary embolism. 2. No significant interval change in appearance of the thoracic aorta, with diffuse atherosclerotic disease as well as multiple small outpouchings/saccular aneurysms. This was described on prior CTA chest. 3. There is multifocal parenchymal opacification in the right lung which is most suspicious for an infectious/inflammatory process. 4. Bilateral emphysema and bronchiectasis. 5. Diffuse coronary artery calcification. 6. Additional findings as described. Assessment/Plan Assessment/Plan Assessment: 1. CAD, stable 2. COPD, with exacerbation 3. Possible pneumonia 4. End-stage renal disease with volume overload 5. Saccular aneurysm of the descending thoracic aorta 6. Atypical chest pain 7. Narrow complex tachycardia, likely sinus tachycardia, resolved on diltiazem drip 8. Mild troponin elevation, likely secondary to demand ischemia Plan: * Increase metoprolol to 50 mg P0 2 times a day if okay with pulmonary * Discontinue diltiazem. * Dialysis with fluid removal as per nephrology * No need to start full anticoagulation at this time unless atrial fibrillation is confirmed. The available EKGs do not reveal evidence of atrial fibrillation. Continue telemetry? Yes
--- NOTE | 2016-09-17 11:13 | PN- Nephrology ---
See Addendum Assessment/Plan Assessment: ESRD - Today is his regular HD session and he comes in below his dry weight. Talked to him about titrating down his outpatient dry weight which he is OK with. Will change it to 85kg on discharge. Hyperkalemia - Unclear cause given that K was 5.0 before dialysis on 09/14. Has had adequate clearance with AVF up to this point. May need to get fistulogram as an outpatient if persists. SOB - Multifactorial - fluid may be playing some role as evidence by improvement in symptoms after dialysis. Can lower dry weight as an outpatient. Hyperphosphatemia - His phos was 5.0 on 09/14. I don't know why this one is much higher. ?Directly after eating. ?Rhabdo. Suggestion: -Full session today -If remains in-house, next HD will be on Saturday -K restricted diet -6000U Epogen TIW -Cont phos binder -Recheck phos in AM -Would check CK level Subjective Subjective: Pt reports feeling better after dialysis last night Currently under dry weight Objective Vital Signs and I&Os Vital Signs Date Time Temp Pulse Resp B/P Pulse O2 O2 Flow FiO2 Ox Delivery Rate 09/17 0859 96 Nasal 4.0L Cannula 09/17 0800 Nasal 4.0L Cannula 09/17 0800 97.6 84 20 162/80 98 Nasal 4.0L Cannula 09/17 0414 94 Nasal 4.0L Cannula 09/17 0400 95 Nasal 4.0L Cannula 09/17 0000 97 Nasal 4.0L Cannula 09/17 0000 97.4 94 16 154/90 97 Nasal 4.0L Cannula 09/16 2030 94 Nasal 4.0L Cannula 09/16 1999 94 Nasal 4.0L Cannula 09/16 1600 96.8 91 24 150/78 98 Nasal 4.0L Cannula 09/16 1600 96 Nasal 4.0L Cannula 09/16 1432 94 Nasal 4.0L Cannula 09/16 1220 90 98 09/16 1200 97 BIPAP 30% Intake & Output 09/17 1600 09/17 0400 09/16 1600 09/16 0400 09/15 0400 Intake Total 393 336 575 100 250 Output Total 1999 0 0 Balance 393 -1664 575 100 250 Intake, IV 93 96 245 40 250 Intake, Oral 300 240 330 60 Number 0 Bowel Movements Output, 2000 Dialysate Output, Urine 0 0 0 Patient 188 lb 190 lb 195 lb 198 lb 194 lb Weight Physical Exam: Gen - improved appearance HEENT - supple CV - RRR (less tachycardic) Chest - clear anteriorly Abd - soft, nontender Ext - no edema Neuro - AOX3 Access - DHRUV aneurysmal AVF Current Medications: Current Medications Sig/Zoe Start time Last Medication Dose Route Stop Time Status Admin Acetaminophen/ 1 TAB DAILY PRN 09/15 1730 AC Hydrocodone Bitart PO Atorvastatin Calcium 5 MG DAILY 09/16 1000 AC 09/16 PO 0923 Calcium Acetate 2,001 MG WM 09/16 0800 AC 09/16 PO 2005 Ceftazidime 1,000 MG DAILY@1700 09/15 1700 AC 09/16 IV 2005 Diltiazem HCl 125 MG Q12H 09/15 1500 DC 09/17 Dextrose/Water 100 ML IV 0352 Diphenhydramine HCl 50 MG .STK-MED ONE 09/17 0006 DC PO 09/17 0007 Diphenhydramine HCl 50 MG ONCE ONE 09/16 2345 DC 09/17 PO 09/16 2346 0011 Docusate Sodium 100 MG DAILY NEEDED PRN 09/16 2145 AC 09/16 PO 2148 Epoetin Ryan 6,000 UNIT MoWeFr PRN 09/17 0845 AC IV Heparin Sodium 5,000 UNIT Q8 09/15 2200 AC 09/17 (Porcine) SC 0552 Ipratropium [place] 2.5 ML TID 09/15 2200 AC 09/17 INH 0857 Lidocaine 1 PAT 0600 09/16 0600 AC 09/16 EXT 0639 Metoprolol Succinate 37.5 MG DAILY 09/16 1000 DC 09/16 PO 0637 Metoprolol Tartrate 50 MG BID 09/17 1058 AC PO Morphine Sulfate 1 MG Q6P PRN 09/16 1530 AC 09/16 IV 1537 Multivitamins 1 TAB DAILY 09/16 1000 AC 09/16 PO 0923 Omeprazole 40 MG DAILY AC 09/16 0700 AC 09/17 PO 0553 Prednisone 50 MG DAILY 09/17 1000 AC PO Prednisone 50 MG DAILY 09/16 1000 DC PO 09/18 1000 Roflumilast 500 MCG DAILY 09/15 1715 AC 09/16 PO 0923 Results Pertinent Lab Results: Laboratory Tests 09/17 09/16 0400 1235 Chemistry Sodium (137 - 145 mmol/L) 135 L Potassium (3.5 - 5.1 mmol/L) 5.5 H Chloride (98 - 107 mmol/L) 94 L Carbon Dioxide (22 - 30 mmol/L) 24 Anion Gap (5 - 16) 17 H BUN (9 - 20 mg/dL) 54 H Creatinine (0.7 - 1.2 mg/dL) 6.8 *H Estimated GFR (>60 ml/min) 8 L Glucose (65 - 99 mg/dL) 104 H Calcium (8.4 - 10.2 mg/dL) 9.1 Phosphorus (2.5 - 4.5 mg/dL) 9.2 H Magnesium (1.6 - 2.3 mg/dL) 2.1 Total Bilirubin (0.2 - 1.3 mg/dL) 0.9 AST (17 - 59 U/L) 37 ALT (21 - 72 U/L) 34 Troponin I (<0.11 ng/ml) 0.16 *H Albumin (3.5 - 5.0 g/dL) 4.1 Hematology CBC w Diff MAN DIFF ORDERED WBC (4.8 - 10.8 /CUMM) 8.8 RBC (4.70 - 6.10 /CUMM) 3.76 L Hgb (14.0 - 18.0 G/DL) 11.0 L Hct (42 - 52 %) 34.0 L MCV (80.0 - 94.0 FL) 90.5 MCH (27.0 - 31.0 PG) 29.2 RDW (11.5 - 14.5 %) 15.3 H Plt Count (130 - 400 /CUMM) 137 MPV (7.4 - 10.4 FL) 11.3 H Gran % (42.2 - 75.2 %) 86.7 H Lymphocytes % (20.5 - 51.1 %) 6.7 L Monocytes % (1.7 - 9.3 %) 6.5 Eosinophils % (0 - 5 %) 0 Basophils % (0.0 - 2.0 %) 0.1 Absolute Granulocytes (1.4 - 6.5 /CUMM) 7.6 H Segmented Neutrophils (42.2 - 75.2 %) 73 Band Neutrophils (0.0 - 5.0 %) 12 H Absolute Lymphocytes (1.2 - 3.4 /CUMM) 0.6 L Lymphocytes (20.5 - 51.1 %) 9 L Monocytes (1.7 - 9.3 %) 3 Absolute Monocytes (0.10 - 0.60 /CUMM) 0.6 Absolute Eosinophils (0.0 - 0.7 /CUMM) 0 Absolute Basophils (0.0 - 0.2 /CUMM) 0 Metamyelocytes (0.0 - 1.0 %) 3 H Platelet Estimate (ADEQUATE) DECREASED Polychromasia 1+ PUBS MCHC (33.0 - 37.0 G/DL) 32.2 L 09/16 09/16 0750 0520 Blood Gas pH (7.35 - 7.45 PH) 7.35 pCO2 (35 - 45 TORR) 41 pO2 (80 - 100 TORR) 101 H HCO3 (21 - 28 MEQ/L) 22 ABG O2 Sat (Measured) (>96.0 %) 96.0 Carboxyhemoglobin (1.5 - 5.0 %) 0.3 L O2 Concentration % 30% Respiration Rate (BPM) 20 O2 Delivery Method VISION Vent Mode ST Expiratory Pressure (CM H2O P) 6 Inspiratory Pressure (CM H2O P) 18 Chemistry Sodium (137 - 145 mmol/L) 132 L Potassium (3.5 - 5.1 mmol/L) 6.1 *H Chloride (98 - 107 mmol/L) 87 L Carbon Dioxide (22 - 30 mmol/L) 23 Anion Gap (5 - 16) 22 H BUN (9 - 20 mg/dL) 52 H Creatinine (0.7 - 1.2 mg/dL) 8.2 *H Estimated GFR (>60 ml/min) 6 L Glucose (65 - 99 mg/dL) 118 H Calcium (8.4 - 10.2 mg/dL) 8.9 Phosphorus (2.5 - 4.5 mg/dL) 7.0 H Magnesium (1.6 - 2.3 mg/dL) 2.1 Total Bilirubin (0.2 - 1.3 mg/dL) 1.0 AST (17 - 59 U/L) 20 ALT (21 - 72 U/L) 35 Troponin I (<0.11 ng/ml) 0.20 *H Albumin (3.5 - 5.0 g/dL) 3.9 Hematology CBC w Diff NO MAN DIFF REQ WBC (4.8 - 10.8 /CUMM) 5.8 RBC (4.70 - 6.10 /CUMM) 3.64 L Hgb (14.0 - 18.0 G/DL) 10.6 L Hct (42 - 52 %) 32.7 L MCV (80.0 - 94.0 FL) 89.9 MCH (27.0 - 31.0 PG) 29.3 RDW (11.5 - 14.5 %) 15.5 H Plt Count (130 - 400 /CUMM) 115 L MPV (7.4 - 10.4 FL) 11.6 H Gran % (42.2 - 75.2 %) 85.8 H Lymphocytes % (20.5 - 51.1 %) 6.8 L Monocytes % (1.7 - 9.3 %) 7.3 Eosinophils % (0 - 5 %) 0 Basophils % (0.0 - 2.0 %) 0.1 Absolute Granulocytes (1.4 - 6.5 /CUMM) 5.0 Absolute Lymphocytes (1.2 - 3.4 /CUMM) 0.4 L Absolute Monocytes (0.10 - 0.60 /CUMM) 0.4 Absolute Eosinophils (0.0 - 0.7 /CUMM) 0 Absolute Basophils (0.0 - 0.2 /CUMM) 0 PUBS MCHC (33.0 - 37.0 G/DL) 32.6 L Miscellaneous Phlebotomy Draw Site RIGHT RADIAL 09/16 09/16 09/15 09/15 0500 5 1999 1710 Chemistry Plasma Potassium (3.4 - 4.4 MMOL/L) 5.8 H Magnesium Cancelled Troponin I (<0.11 ng/ml) 0.18 *H Cancelled Coagulation PT Cancelled INR Cancelled 09/15 09/15 7556 1537 Blood Gas pH (7.35 - 7.45 PH) 7.40 pCO2 (35 - 45 TORR) 38 pO2 (80 - 100 TORR) 107 H HCO3 (21 - 28 MEQ/L) 23 ABG O2 Sat (Measured) (>96.0 %) 97.0 P-50 (Temp Corrected) N Carboxyhemoglobin (1.5 - 5.0 %) 0.2 L O2 Concentration % 35% Temperature (97.0 - 100.0 FARH) 99.9 Respiration Rate (BPM) 20 O2 Delivery Method BIPAP Vent Mode ST Expiratory Pressure (CM H2O P) 6 Inspiratory Pressure (CM H2O P) 18 Miscellaneous Phlebotomy Draw Site RIGHT RADIAL Urines Urine Color Cancelled Urine Clarity Cancelled Urine pH Cancelled Ur Specific [place] Cancelled Urine Protein Cancelled Urine Ketones Cancelled Urine Nitrite Cancelled Urine Bilirubin Cancelled Urine Urobilinogen Cancelled Ur Leukocyte Esterase Cancelled Ur Microscopic Cancelled Urine Hemoglobin Cancelled Urine Glucose Cancelled 09/15 1355 Chemistry Sodium (137 - 145 mmol/L) 135 L Potassium (3.5 - 5.1 mmol/L) 6.0 *H Chloride (98 - 107 mmol/L) 87 L Carbon Dioxide (22 - 30 mmol/L) 28 Anion Gap (5 - 16) 20 H BUN (9 - 20 mg/dL) 39 H Creatinine (0.7 - 1.2 mg/dL) 6.6 *H Estimated GFR (>60 ml/min) 8 L BUN/Creatinine Ratio (7 - 25 %) 5.9 L Glucose (65 - 99 mg/dL) 116 H Calcium (8.4 - 10.2 mg/dL) 9.3 Magnesium (1.6 - 2.3 mg/dL) 1.9 Troponin I (<0.11 ng/ml) 0.08 Coagulation PT (9.4 - 12.5 SEC) 13.3 H INR (0.90 - 1.17) 1.27 H APTT (25 - 37 SEC) 33 D-Dimer (70 - 232 ng/ml) 814 H Hematology CBC w Diff MAN DIFF ORDERED WBC (4.8 - 10.8 /CUMM) 12.0 H RBC (4.70 - 6.10 /CUMM) 4.02 L Hgb (14.0 - 18.0 G/DL) 11.8 L Hct (42 - 52 %) 36.4 L MCV (80.0 - 94.0 FL) 90.4 MCH (27.0 - 31.0 PG) 29.3 RDW (11.5 - 14.5 %) 15.3 H Plt Count (130 - 400 /CUMM) 151 MPV (7.4 - 10.4 FL) 11.9 H Gran % (42.2 - 75.2 %) 84.3 H Lymphocytes % (20.5 - 51.1 %) 7.8 L Monocytes % (1.7 - 9.3 %) 7.0 Eosinophils % (0 - 5 %) 0.5 Basophils % (0.0 - 2.0 %) 0.4 Absolute Granulocytes (1.4 - 6.5 /CUMM) 10.1 H Segmented Neutrophils (42.2 - 75.2 %) 75 Band Neutrophils (0.0 - 5.0 %) 8 H Absolute Lymphocytes (1.2 - 3.4 /CUMM) 0.9 L Lymphocytes (20.5 - 51.1 %) 9 L Monocytes (1.7 - 9.3 %) 7 Absolute Monocytes (0.10 - 0.60 /CUMM) 0.8 H Eosinophils (0 - 5.0 %) 1 Absolute Eosinophils (0.0 - 0.7 /CUMM) 0.1 Absolute Basophils (0.0 - 0.2 /CUMM) 0.1 Platelet Estimate (ADEQUATE) VERIFIED BY SMEAR Polychromasia 1+ Poikilocytosis 1+ Anisocytosis 1+ Ovalocytes 1+ Stomatocytes 1+ PUBS MCHC (33.0 - 37.0 G/DL) 32.5 L Imaging/Other Studies: EXAM TYPE: RAD - XRY-PORTABLE CHEST XRAY EXAMINATION: XR PORTABLE CHEST CLINICAL INFORMATION: Worsening shortness of breath. Pneumonia. COPD. COMPARISON: CTA thorax 09/15/2016. Chest radiograph 09/15/2016. TECHNIQUE: Portable view of the chest was obtained. FINDINGS: The cardiac silhouette is enlarged. There is vascular congestion without interstitial or alveolar edema. No obvious consolidation is seen. The findings have shown improvement from 09/15/2016. A vascular stent is seen in the left axillary, subclavian vein region. IMPRESSION: Enlarged cardiac silhouette with vascular congestion. Interval improvement in the patchy right lower lobe opacity. EXAM TYPE: CAT - CTA CHEST-PULMONARY EMBOLISM EXAMINATION: CT ANGIOGRAM CHEST WITH AND WITHOUT CONTRAST (CT PULMONARY ANGIOGRAM FOR PE) CLINICAL INFORMATION: Tachypneic, tachycardic, shortness of breath. COMPARISON: Prior CTA chest 09/11/2016. TECHNIQUE: Prior to contrast administration, noncontrast localization images were obtained. Subsequently, multidetector volumetric imaging was performed from the thoracic inlet to below the diaphragms following the administration of 125 mL Optiray 350 intravenous contrast. No contrast reaction reported. Sagittal, coronal, and MIP oblique sagittal reformatted images were obtained on the CT workstation, uploaded to PACS, and reviewed. Total exam dose-length product 1024 mGy-cm. FINDINGS: QUALITY OF STUDY/CONTRAST BOLUS: Satisfactory. PULMONARY ARTERIES: No central or segmental pulmonary emboli. THORACIC AORTA: Unchanged diffuse atherosclerotic disease within the thoracic aorta. Multifocal mural small outpouchings with no interval change compared to exam 09/11/2016. Suboptimal opacification to assess for dissection. LUNG: Mild to moderate emphysema is redemonstrated. There is peribronchial thickening with bilateral lower lobe bronchiectasis. Patchy opacification within the right middle lobe and to a lesser degree the right lower lobe and right upper lobe. No overt pulmonary edema. PLEURA: No pleural effusion or pneumothorax. MEDIASTINUM: Normal to mildly prominent heart size. Coronary artery calcification. No pericardial effusion. No new hilar or mediastinal lymphadenopathy. No evidence of septal bowing or right heart strain. CHEST WALL/AXILLA: No axillary or internal mammary lymphadenopathy. OSSEOUS STRUCTURES: No acute or suspicious osseous abnormality. UPPER ABDOMEN: Pneumobilia noted. Cholecystectomy clips. IMPRESSION: 1. No pulmonary embolism. 2. No significant interval change in appearance of the thoracic aorta, with diffuse atherosclerotic disease as well as multiple small outpouchings/saccular aneurysms. This was described on prior CTA chest. 3. There is multifocal parenchymal opacification in the right lung which is most suspicious for an infectious/inflammatory process. 4. Bilateral emphysema and bronchiectasis. 5. Diffuse coronary artery calcification. 6. Additional findings as described.
--- NOTE | 2016-09-17 11:13 | NUR ---
PT HAS 2L NC BASELINE AT HOME, OXYGEN TURNED DOWN TO 3L NC FROM 4L NC. WILL MONITOR.
--- NOTE | 2016-09-17 11:15 | NUR ---
PER MD PENNY STOP CARDIZEM GTT AFTER GIVING PO METOPROLOL. PT RECEIVING DIALYSIS AT THIS TIME, WILL GIVE PO MEDS AFTER.
--- NOTE | 2016-09-17 11:48 | NUR ---
PT HAVING A LOT OF COUPLETS ON MONITOR WHILE RECEIVING DIALYSIS. MD AMADO AWARE. STRIP GIVEN.
--- NOTE | 2016-09-17 13:09 | PN- Resident CRCU ---
Subjective HPI/CRCU Issues: Patient seen and examined. He is seen sitting upright in his chair at bedside resting comfortably. He appears to be in no acute distress. Overall he reports feeling much better, however admits to not sleeping well last night because of a headache. He also states that his legs look "much better" than yesterday. Additionally he denies any fever, chills, chest pain, palpitations, worsening shortness of breath, nausea, vomiting, diarrhea. No overnight events reported. Objective Vital Signs & I&O Last 8 Hrs of Vitals and I&O: Vitals: - Temperature: 97.4-97.6 - Heart Rate: 82-98 - Respiratory Rate: 11-28 - Systolic Blood pressure: 125-172 - Diastolic Blood pressure: 62-92 - Oxygen Saturation: 80-97% on 4.0 L via nasal cannula Exam General Appearance: well developed/nourished, no apparent distress, alert, awake , comfortable, obese Other Physical Findings: General - well developed, well nourished elderly male in no acute distress HEENT - NCAT, PERRL, EOMI, anicteric sclera Cardio - S1, S2 w/o murmurs/gallops/rubs Resp -minimal rhonchi and wheezing heard in bibasilar lung ferrer GI - soft, nontender, nondistended, bowel sounds present Neuro - Awake and alert, CN II - XII grossly intact Extremities -1+ lower extremity edema, pulses intact Current Medications: Current Medications Sig/Zoe Start time Last Medication Dose Route Stop Time Status Admin Acetaminophen/ 1 TAB DAILY PRN 09/15 1730 AC Hydrocodone Bitart PO Atorvastatin Calcium 5 MG DAILY 09/16 1000 AC 09/16 PO 0923 Calcium Acetate 2,001 MG WM 09/16 0800 AC 09/16 PO 2005 Ceftazidime 1,000 MG DAILY@1700 09/15 1700 AC 09/16 IV 2005 Diltiazem HCl 125 MG ONCE ONE 09/17 1215 AC Sodium Chloride 100 ML IV 09/17 2214 Diltiazem HCl 125 MG Q12H 09/15 1500 DC 09/17 Dextrose/Water 100 ML IV 0352 Diphenhydramine HCl 50 MG .STK-MED ONE 09/17 0006 DC PO 09/17 0007 Diphenhydramine HCl 50 MG ONCE ONE 09/16 2345 DC 09/17 PO 09/16 2346 0011 Docusate Sodium 100 MG DAILY NEEDED PRN 09/16 2145 AC 09/16 PO 2148 Epoetin Ryan 6,000 UNIT MoWeFr PRN 09/17 0845 AC IV Heparin Sodium 5,000 UNIT Q8 09/15 2200 AC 09/17 (Porcine) SC 0552 Ipratropium [place] 2.5 ML TID 09/15 2200 AC 09/17 INH 0857 Lidocaine 1 PAT 0600 09/16 0600 AC 09/16 EXT 0639 Metoprolol Succinate 37.5 MG DAILY 09/16 1000 DC 09/16 PO 0637 Metoprolol Tartrate 50 MG BID 09/17 1058 AC PO Morphine Sulfate 1 MG Q6P PRN 09/16 1530 AC 09/16 IV 1537 Multivitamins 1 TAB DAILY 09/16 1000 AC 09/16 PO 0923 Omeprazole 40 MG DAILY AC 09/16 0700 AC 09/17 PO 0553 Prednisone 50 MG DAILY 09/17 1000 AC PO Prednisone 50 MG DAILY 09/16 1000 DC PO 09/18 1000 Roflumilast 500 MCG DAILY 09/15 1715 AC 09/16 PO 0923 Impression/Plan Impression/Problem List Impression: Patient reports improvement of his chest discomfort and shortness of breath after receiving dialysis yesterday afternoon. He also notes that his ankles look less swollen than they did yesterday. He admits that he feels much better however not back to his previous health. Metoprolol was increased to 50mg today and diltizem was discontinued. Problem List: - Acute hypoxic respiratory failure - COPD exacerbation - Reported History of Atrial Fibrillation - Elevated troponins, most likely demand ischemia Respiratory: History of Pulmonary hypertension, LLUVIA on CPAP, COPD on 2.0L O2. Patient of Dr. Belle. -Methylprednisone 60mg IV x1 dose -Ceftazidime 1g IV Daily -Pulmonology consult -Obtain CTA Chest to assess for PE if okay with nephrology Cardiovascular: History of CAD s/p stent, hypertension, Saccular aneurysm of descending thoracic aorta. Patient of Dr. Recio. Collateral information obtained from nurse prationer mentions patient has had a history of Atrial Fibrillation, however records do no appear to mention this. Echo (06/15/16) demonstrates EF 50-55% with aortic stenosis. -Cardizem drip discontinued -Metoprolol increased to 50mg PO BID -Atorvastatin 5mg PO Daily -Cardiology consult -F/U Echocardiogram Nephrology: Patient with history of ESRD on HD (M,W,F). Patient of Dr. Shields. Last HD on 09/14/16. Reportedly no longer makes urine. -Diaylsis (M,W,F) -PhosLo 2g -Nephrocaps -Nephrology consult placed Pain Plan: -Vicodin 1 TAB PO DAILY -Lidocaine Patch Diet - Renal Dialysis Diet DVT PPx - Heparin SC Code Status - FULL CODE Problem List: 1. COPD EXACERBATION Pain Ratin Tomorrow's Labs & Rationales: CBC ICU bundle Plan DVT/Prophylaxis: pharmacological, heparin Code Status: Full Code
--- NOTE | 2016-09-17 15:16 | NUR ---
pt complaining of sob after dialysis, oxygen sat 88%, oxygen turned back up to 4l nc. pt also requesting something to help him move his bowels. dulcolax po ordered. pt placed back in bed from chair. oxygen sat now 95%
[2016-09-17 16:00] VITALS: BP 138/70
--- NOTE | 2016-09-17 20:47 | ECHOCARDIOGRAM REPORT ---
JAMES NELSON Age: 71 : 1945 Gender: M Exam Date: 09/17/2016 16:35 Exam Location: [facility] Ht (in): 65 Wt (lb): 195 BSA: 2.05 BP: 154 / 90 Ordering Physician: SANDRA LIGHT MD Referring Physician: Kenn Recio MD Technologist: Puja Dewitt [facility] Room Number: 101 Indications: ARRHYTHMIAS Rhythm: Sinus Technical Quality: Fair, Technically difficult study FINDINGS Left Ventricle Normal size left ventricle. Mildly reduced global left ventricular systolic function. Mildly abnormal left ventricular ejection fraction estimated at 40-45%. Right Ventricle Right ventricle not well visualized, grossly normal. Right Atrium Normal right atrial size. Left Atrium Moderate left atrial dilatation. Mitral Valve Mild thickening/calcification of the anterior mitral valve leaflet. Moderate mitral annular calcification. [id number] mitral regurgitation. Aortic Valve Trileaflet aortic valve. Diffuse thickening of the aortic valve cusps with reduced excursion. Mild aortic stenosis. Tricuspid Valve Tricuspid valve not well visualized, grossly normal. Mild tricuspid regurgitation. Right ventricular systolic pressure estimated at 38 mmHg. Pulmonic Valve Pulmonic valve not well visualized, grossly normal. Pericardium No pericardial effusion. Great Vessels Aortic root and proximal ascending aorta not well visualized, grossly normal. CONCLUSIONS 1. This was a technically dificult examination. 2. Fibrocalcific degeneration is present in the aortic valve with mild valvular stenosis (PG 16 mmHg; MG 8 mmHg;JANIE 1.8 cm2). 3. Thickening and calcification of the mitral leaflets is present with moderate anular calcification and mild to moderate mitral insufficiency with moderate left atrial enlargement. 4. There is no significant pericardial fluid present. 5. The left ventricular chamber size is normal. There is global hypokinesia present which is worse in the inferior and apical segments. The ejection fraction is approximately 40-45%. Diastolic dysfunction is present. 6. The right heart structures are grossly normal but were not optimally assessed. Mild tricuspid insufficiency is present with no evidence of pulmonary hypertension. 7. Lipomatous atrial septal hypertrophy is present. 8. Since the prior study, the LV ejection fraction has decreased. Kenn Recio M.D. (Electronically Signed) Final Date: 17 September 2016 20:47 MEASUREMENTS (Male / Female) Normal Values 2D ECHO LV Diastolic Diameter PLAX 5.4 cm 4.2 - 5.9 / 3.9 - 5.3 cm LV Systolic Diameter PLAX 3.6 cm 2.1 - 4.0 cm LV Fractional Shortening PLAX 33.3 % 25 - 46 % LV Ejection Fraction 2D Teich 61.5 % IVS Diastolic Thickness 1.1 cm LVPW Diastolic Thickness 1.1 cm LV Relative Wall Thickness 0.4 RV Internal Dim ED PLAX 2.1 cm 1.9 - 3.8 cm LVOT Diameter 2.0 cm Aortic Root Diameter 3.4 cm LA Systolic Diameter LX 3.4 cm 3.0 - 4.0 / 2.7 - 3.8 cm LA Volume 67.0 cm 18 - 58 / 22 - 52 cm Ascending Aorta Diameter 3.4 cm DOPPLER AV Peak Velocity 209.0 cm/s AV Peak Gradient 17.5 mmHg AV Mean Velocity 141.0 cm/s AV Mean Gradient 9.0 mmHg AV Velocity Time Integral 37.3 cm LVOT Peak Velocity 111.0 cm/s LVOT Peak Gradient 4.9 mmHg LVOT Mean Velocity 74.2 cm/s LVOT Mean Gradient 3.0 mmHg LVOT Velocity Time Integral 21.7 cm LVOT Stroke Volume 68.2 cm AV Area Cont Eq vti 1.8 cm AV Area Cont Eq pk 1.7 cm MV Peak Velocity 125.0 cm/s MV Peak Gradient 6.3 mmHg MV Mean Velocity 78.2 cm/s MV Mean Gradient 3.0 mmHg Mitral E Point Velocity 102.0 cm/s Mitral A Point Velocity 115.0 cm/s Mitral E to A Ratio 0.9 MV PHT Velocity 117.0 cm/s MV Deceleration [place] 377.0 cm/s MV Pressure Half Time 93.1 ms MV Area PHT 2.4 cm MV Deceleration Time 320.0 ms TR Peak Velocity 289.0 cm/s TR Peak Gradient 33.4 mmHg Right Atrial Pressure 5.0 mmHg Pulmonary Artery Systolic Pressu 38.4 mmHg Right Ventricular Systolic Press 38.4 mmHg PV Peak Velocity 106.0 cm/s PV Peak Gradient 4.5 mmHg PV Mean Velocity 71.2 cm/s PV Mean Gradient 2.0 mmHg PV Velocity Time Integral 15.6 cm LV E' Lateral Velocity 4.8 cm/s Mitral E to LV E' Lateral Ratio 21.0 LV E' Septal Velocity 3.7 cm/s Mitral E to LV E' Septal Ratio 27.6
[2016-09-18] VITALS: BP 156/83
--- NOTE | 2016-09-18 05:50 | NUR ---
REC'D PT IN BED W/FAMILY AT BEDSIDE @1999. FAMILY WAS CONCERN W/PT'S SWEATINESS. ACCUCHECK 138. PT WAS MORE CONCERN OF HIS DISTENDED ABD, BLOATING BUT PASSING FLATUS DE. NO BM SINCE 09/14. OFFERED DULCOLAX EARLIER. REFUSED COLACE AT HS. SR W/PAC HR 80-90'S. SBP 160-170'S. ON 4LNC POX 95-98%, LS DIMINISHED THROUGHOUT. C/O MORE BACK PAIN BUT REFUSED ANY PAIN MEDS SCORE 2-3/10. BACK RUB GIVEN. REQUESTED BENADRYL FOR SLEEP. MD ORDERED X1 DOSE. SLEPT FAIRLY WELL. UP @0530. BLOOD DRAWN & ASSISTED X1 TO JAMES. REQUESTED COFFEE. LEFT TO GET COFFEE. PT GOT ANXIOUS & YELLING/CALLING OUT FOR THE RN. ONCE BACK IN THE ROOM PT HAD SOME SOBOE ON 4LNC, PT STATED CAN'T BREATH. ENCOURAGED TO TAKE SLOW DEEP BREATH. CLAMMY. ACCUCHECK 106. REASSURANCE/EMOTIONAL SUPPORT GIVEN. PT FELT BETTER. COFFEE MADE. PT LESS ANXIOUS. POX 90-96%, CONT TO MONITOR.
[2016-09-18 06:13] LABS: ABSOLUTE BASOPHIL COUNT 0 /CUMM (0.0-0.2); ABSOLUTE EOSINOPHIL COUNT 0 /CUMM (0.0-0.7); ABSOLUTE LYMPH COUNT 0.5 /CUMM (1.2-3.4); ABSOLUTE MONOCYTE COUNT 0.6 /CUMM (0.10-0.60); BASOPHIL % 0.1 % (0.0-2.0); EOSINOPHIL % 0 % (0-5); GRANULOCYTE % 84.8 % (42.2-75.2); HEMATOCRIT 34.5 % (42-52); MEAN CORPUSCULAR HGB 29.5 PG (27.0-31.0); MEAN CORPUSCULAR HGB CONC 32.4 G/DL (33.0-37.0); MEAN CORPUSCULAR VOLUME 90.9 FL (80.0-94.0); MEAN PLATELET VOLUME 10.8 FL (7.4-10.4); RBC DISTRIBUTION WIDTH 15.3 % (11.5-14.5); WHITE BLOOD CELL COUNT 7.1 /CUMM (4.8-10.8)
[2016-09-18 06:40] LABS: PLATELET COUNT 126 /CUMM (130-400)
[2016-09-18 08:00] VITALS: BP 138/60
--- NOTE | 2016-09-18 08:18 | RADIOLOGY REPORT ---
EXAMINATION: XR PORTABLE CHEST CLINICAL INFORMATION: Exacerbation of chronic obstructive pulmonary disease. COMPARISON: CXR from 09/16/[address] from 09/15/2016 TECHNIQUE: Portable view of the chest was obtained. FINDINGS: Lungs are hyperexpanded. There is subtle peribronchial interstitial thickening in the right lower lobe without focal airspace opacification or other significant interval change from 09/16/2016. Cardiac silhouette is enlarged. There is atherosclerotic calcification of the aorta. A left subclavian vascular stent is noted. IMPRESSION: 1. Pulmonary emphysema. 2. Subtle peribronchial interstitial lung thickening in right lower lobe is unchanged compared to 09/16/2016. This suggests presence of airway inflammation. No interval development of focal consolidation.
--- NOTE | 2016-09-18 08:43 | PN- Resident CRCU ---
Subjective HPI/CRCU Issues: Patient was sitting upright and comfortably in chair at bedside this a.m. He was on 3 L nasal cannula, down from 4 L previously. He stated he slept well last night. Denies any shortness of breath. He did however endorse a little chest tightness, but denied chest pain. He said he was transient and went to away. Patient denies any other complaints. No acute overnight events. Objective Vital Signs & I&O Last 8 Hrs of Vitals and I&O: Intake & Output 09/18 1600 Intake Total Output Total Balance Patient 83.234 kg Weight Exam General Appearance: no apparent distress, alert, awake, comfortable Head: atraumatic, normal appearance Ears, Nose, Throat: normal ENT inspection Neck: normal inspection, full range of motion Respiratory: crackles, rhonchi Cardiovascular: regular rate/rhythm, edema Gastrointestinal: normal bowel sounds, soft, non-tender Current Medications: Current Medications Sig/Zoe Start time Last Medication Dose Route Stop Time Status Admin Acetaminophen/ 1 TAB DAILY PRN 09/15 1730 AC Hydrocodone Bitart PO Atorvastatin Calcium 5 MG DAILY 09/16 1000 AC 09/17 PO 1342 Bisacodyl 5 MG DAILY 09/17 1513 AC 09/17 PO 1801 Calcium Acetate 2,001 MG WM 09/16 0800 AC 09/18 PO 0801 Ceftazidime 1,000 MG DAILY@1700 09/15 1700 AC 09/17 IV 1629 Diltiazem HCl 125 MG ONCE ONE 09/17 1215 DC 09/17 Sodium Chloride 100 ML IV 09/17 2214 1230 Diltiazem HCl 125 MG Q12H 09/15 1500 DC 09/17 Dextrose/Water 100 ML IV 0352 Diphenhydramine HCl 50 MG .STK-MED ONE 09/18 0000 DC PO 09/18 0001 Diphenhydramine HCl 50 MG ONCE ONE 09/17 2345 DC 09/18 PO 09/17 2346 0003 Docusate Sodium 100 MG DAILY NEEDED PRN 09/16 2145 AC 09/16 PO 2148 Epoetin Ryan 6,000 UNIT MoWeFr PRN 09/17 0845 AC IV Heparin Sodium 5,000 UNIT Q8 09/15 2200 AC 09/18 (Porcine) SC 0545 Ipratropium [place] 2.5 ML TID 09/15 2200 AC 09/18 INH 0827 Lidocaine 1 PAT 0600 09/16 0600 AC 09/18 EXT 0545 Metoprolol Succinate 37.5 MG DAILY 09/16 1000 DC 09/16 PO 0637 Metoprolol Tartrate 50 MG BID 09/17 1058 AC 09/17 PO 2120 Morphine Sulfate 1 MG Q6P PRN 09/16 1530 AC 09/16 IV 1537 Multivitamins 1 TAB DAILY 09/16 1000 AC 09/17 PO 1342 Omeprazole 40 MG DAILY AC 09/16 0700 AC 09/18 PO 0548 Prednisone 50 MG DAILY 09/17 1000 AC 09/17 PO 1342 Roflumilast 500 MCG DAILY 09/15 1715 AC 09/17 PO 1342 ECHO Findings: Echo showed EF 40-45. Which is decreased from previous exam. Impression/Plan Impression/Problem List Impression: This a.m. patient states he feels much better. He was able to wean down from 4 L nasal cannula to 3 L and was satting comfortably in the high 90s. Of note, at home he is on 2 L. Yesterday his metoprolol was increased to 50 mg and diltiazem discontinued. Patient seems to do well on this regimen as heart rate continues to be controlled. He is on Saturday dialysis regimen, scheduled for dialysis tomorrow. We will need to titrate his prednisone which is currently 50 mg by mouth daily. 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 Patient of Dr. Belle. CTA Chest 09/15/15 showed no pulmonary embolism , no change in thoracic aorta saccular aneurysms, did show multifocal parenchymal opacification right lung which is suspicious for inflammatory versus infectious process. It confirmed bilateral emphysema and bronchiectasis. * Patient got IV methylprednisone 60 mg 1, subsequently was changed to by mouth prednisone 50 mg every daily. We will continue to taper and titrate steroids as necessary. * Ceftazidime 1g IV Daily--> we will switch to Cipro renally dosed * Pulmonology consult Infectious Diseases: Patient is on chronic steroids for COPD, likely immunosuppressed. 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 Patient has previous history of biliary sepsis. No evidence of biliary process currently. Patient currently treated for possible pneumonia. * Continue ceftaz---> switched to by mouth Cipro Cardiovascular:History of CAD s/p stent, hypertension, Saccular aneurysm of descending thoracic aorta. Patient of Dr. Recio. Collateral information obtained from nurse prationer mentions patient has had a history of Atrial Fibrillation, however records do no appear to mention this. Echo (06/15/16) demonstrates EF 50-55% with aortic stenosis. Recent echo done yesterday showed worsening of cardiovascular function with EF of 40-45% * Cardizem drip discontinued 09/17/2016 * Metoprolol increased to 50mg PO BID * Atorvastatin 5mg PO Daily * Cardiology consult Renal: Patient with history of ESRD on HD (M,W,F). Patient of Dr. Shields. Last HD on 09/17/16. Patient reports he is anuric. * Diaylsis (M,W,F) * PhosLo 2g * Nephrocaps * Nephrology consult placed Pain Plan: * Vicodin 1 TAB PO DAILY * Lidocaine Patch Problem List: 1. Aortic aneurysm 2. COPD EXACERBATION 3. Chronic hypercapnic respiratory failure 4. Coronary arteriosclerosis Pain Ratin Pain Location: None Tomorrow's Labs & Rationales: ICU bundle Plan DVT/Prophylaxis: pharmacological, heparin Code Status: Full Code
--- NOTE | 2016-09-18 09:13 | PN- Nephrology ---
Assessment/Plan Assessment: 1. Shortness of breath. Suspect this is due for to his COPD rather than volume overload. Keep in mind this is very difficult to sort out in this gentleman. 2. End-stage renal disease on hemodialysis. Hemodialysis will be offered again tomorrow. It may be helpful to raise his time from 3.25 hours to 3.5 hours. This may slow the rate of ultrafiltration and allow him to tolerate it better. Suggestion: 1. Maintain a 2 g sodium, 2 g potassium, diet with a 1000 mL fluid restriction per day. 2. I would favor removing the water pitcher from his room. 3. Next dialysis will be on 09/19/2016 4. With regards to his weights, I find it hard to believe that he gained 6 pounds overnight Subjective Subjective: Patient says he feels better. We discussed his dry weight. He thinks it 84.5 kg was perhaps too low. Objective Vital Signs and I&Os Vital Signs Date Time Temp Pulse Resp B/P Pulse O2 O2 Flow FiO2 Ox Delivery Rate 09/18 0902 97 149/81 09/18 0829 95 Nasal 3.0L Cannula 09/18 0800 98.6 96 18 138/60 97 Nasal 3.0L Cannula 09/18 0800 96 Nasal 3.0L Cannula 09/18 0400 96 Nasal 4.0L Cannula 09/18 0315 87 94 09/18 0000 97.3 88 20 156/83 96 Nasal 4.0L Cannula 09/18 0000 96 Nasal 4.0L Cannula 09/17 2120 102 178/90 09/17 2107 97 Nasal 4.0L Cannula 09/17 1999 96 Nasal 4.0L Cannula 09/17 1600 Nasal 4.0L Cannula 09/17 1600 98.0 92 20 138/70 95 Nasal 4.0L Cannula 09/17 1346 107 140/72 09/17 1200 95 Nasal 2.0L Cannula Intake & Output 09/18 1600 09/18 0400 09/17 1600 09/17 0400 09/16 1600 09/16 0400 Intake Total 469 70 6785.5 336 575 100 Output Total 0 0 1999 1999 0 0 Balance 360 50 -550.5 -1664 575 100 Intake, IV 0 0 189.5 96 245 40 Intake, Oral 402 80 2268 240 330 60 Number 1 0 0 0 Bowel Movements Output, 1999 1999 Dialysate Output, Urine 0 0 0 0 0 Patient 190 lb 184 lb 190 lb 195 lb 198 lb Weight Physical Exam General Appearance: well developed/nourished, no apparent distress, alert, awake , comfortable, obese Head: atraumatic, normal appearance Ears, Nose, Throat: hearing grossly normal Neck: normal inspection, supple, full range of motion Respiratory: his lungs are clear, however, his expiration is prolonged. I do not hear any wheezes this morning. Cardiovascular: regular rate/rhythm Abdomen: normal bowel sounds, large protuberant abdomen. Bowel sounds throughout. He was examined sitting up. Back: normal inspection, no vertebral tenderness, no CVA tenderness Extremities: normal inspection, no edema Neurologic/Psychiatric: no motor/sensory deficits, awake, alert, oriented x 3, normal mood/affect, o gross neurologic deficits Skin: intact, normal color, no rashes Lymphatic: no cervical or supraclavicular lymphadenopathy Current Medications: Current Medications Sig/Zoe Start time Last Medication Dose Route Stop Time Status Admin Acetaminophen/ 1 TAB DAILY PRN 09/15 1730 AC Hydrocodone Bitart PO Atorvastatin Calcium 5 MG DAILY 09/16 1000 AC 09/18 PO 0901 Bisacodyl 5 MG DAILY 09/17 1513 AC 09/17 PO 1801 Calcium Acetate 2,001 MG WM 09/16 0800 AC 09/18 PO 0801 Ceftazidime 1,000 MG DAILY@1700 09/15 1700 AC 09/17 IV 1629 Diltiazem HCl 125 MG ONCE ONE 09/17 1215 DC 09/17 Sodium Chloride 100 ML IV 09/17 2214 1230 Diltiazem HCl 125 MG Q12H 09/15 1500 DC 09/17 Dextrose/Water 100 ML IV 0352 Diphenhydramine HCl 50 MG .STK-MED ONE 09/18 0000 DC PO 09/18 0001 Diphenhydramine HCl 50 MG ONCE ONE 09/17 2345 DC 09/18 PO 09/17 2346 0003 Docusate Sodium 100 MG DAILY NEEDED PRN 09/16 2145 AC 09/16 PO 2148 Epoetin Ryan 6,000 UNIT MoWeFr PRN 09/17 0845 AC IV Heparin Sodium 5,000 UNIT Q8 09/15 2200 AC 09/18 (Porcine) SC 0545 Ipratropium [place] 2.5 ML TID 09/15 2200 AC 09/18 INH 0827 Lidocaine 1 PAT 0600 09/16 0600 AC 09/18 EXT 0545 Metoprolol Succinate 37.5 MG DAILY 09/16 1000 DC 09/16 PO 0637 Metoprolol Tartrate 50 MG BID 09/17 1058 AC 09/18 PO 0902 Morphine Sulfate 1 MG Q6P PRN 09/16 1530 AC 09/16 IV 1537 Multivitamins 1 TAB DAILY 09/16 1000 AC 09/18 PO 0901 Omeprazole 40 MG DAILY AC 09/16 0700 AC 09/18 PO 0548 Prednisone 50 MG DAILY 09/17 1000 AC 09/18 PO 0901 Roflumilast 500 MCG DAILY 09/15 1715 AC 09/18 PO 0902 Results Pertinent Lab Results: Laboratory Tests 09/18 09/17 0530 0400 Chemistry Sodium (137 - 145 mmol/L) 140 135 L Potassium (3.5 - 5.1 mmol/L) 5.3 H 5.5 H Chloride (98 - 107 mmol/L) 98 94 L Carbon Dioxide (22 - 30 mmol/L) 27 24 Anion Gap (5 - 16) 16 17 H BUN (9 - 20 mg/dL) 43 H 54 H Creatinine (0.7 - 1.2 mg/dL) 5.4 *H 6.8 *H Estimated GFR (>60 ml/min) 11 L 8 L Glucose (65 - 99 mg/dL) 92 104 H Calcium (8.4 - 10.2 mg/dL) 8.7 9.1 Phosphorus (2.5 - 4.5 mg/dL) 7.6 H 9.2 H Magnesium (1.6 - 2.3 mg/dL) 2.1 2.1 Total Bilirubin (0.2 - 1.3 mg/dL) 0.6 0.9 AST (17 - 59 U/L) 35 37 ALT (21 - 72 U/L) 29 34 Creatine Kinase (55 - 170 U/L) 210 H Albumin (3.5 - 5.0 g/dL) 3.7 4.1 Hematology CBC w Diff NO MAN DIFF REQ MAN DIFF ORDERED WBC (4.8 - 10.8 /CUMM) 7.1 8.8 RBC (4.70 - 6.10 /CUMM) 3.80 L 3.76 L Hgb (14.0 - 18.0 G/DL) 11.2 L 11.0 L Hct (42 - 52 %) 34.5 L 34.0 L MCV (80.0 - 94.0 FL) 90.9 90.5 MCH (27.0 - 31.0 PG) 29.5 29.2 RDW (11.5 - 14.5 %) 15.3 H 15.3 H Plt Count (130 - 400 /CUMM) 126 L 137 MPV (7.4 - 10.4 FL) 10.8 H 11.3 H Gran % (42.2 - 75.2 %) 84.8 H 86.7 H Lymphocytes % (20.5 - 51.1 %) 6.7 L 6.7 L Monocytes % (1.7 - 9.3 %) 8.4 6.5 Eosinophils % (0 - 5 %) 0 0 Basophils % (0.0 - 2.0 %) 0.1 0.1 Absolute Granulocytes (1.4 - 6.5 /CUMM) 6.0 7.6 H Segmented Neutrophils (42.2 - 75.2 %) 73 Band Neutrophils (0.0 - 5.0 %) 12 H Absolute Lymphocytes (1.2 - 3.4 /CUMM) 0.5 L 0.6 L Lymphocytes (20.5 - 51.1 %) 9 L Monocytes (1.7 - 9.3 %) 3 Absolute Monocytes (0.10 - 0.60 /CUMM) 0.6 0.6 Absolute Eosinophils (0.0 - 0.7 /CUMM) 0 0 Absolute Basophils (0.0 - 0.2 /CUMM) 0 0 Metamyelocytes (0.0 - 1.0 %) 3 H Platelet Estimate (ADEQUATE) DECREASED Polychromasia 1+ PUBS MCHC (33.0 - 37.0 G/DL) 32.4 L 32.2 L 09/16 09/16 1235 0750 Blood Gas pH (7.35 - 7.45 PH) 7.35 pCO2 (35 - 45 TORR) 41 pO2 (80 - 100 TORR) 101 H HCO3 (21 - 28 MEQ/L) 22 ABG O2 Sat (Measured) (>96.0 %) 96.0 Carboxyhemoglobin (1.5 - 5.0 %) 0.3 L O2 Concentration % 30% Respiration Rate (BPM) 20 O2 Delivery Method VISION Vent Mode ST Expiratory Pressure (CM H2O P) 6 Inspiratory Pressure (CM H2O P) 18 Chemistry Troponin I (<0.11 ng/ml) 0.16 *H Miscellaneous Phlebotomy Draw Site RIGHT RADIAL 09/16 09/16 09/16 0556 0500 0018 Chemistry Sodium (137 - 145 mmol/L) 132 L Potassium (3.5 - 5.1 mmol/L) 6.1 *H Chloride (98 - 107 mmol/L) 87 L Carbon Dioxide (22 - 30 mmol/L) 23 Anion Gap (5 - 16) 22 H BUN (9 - 20 mg/dL) 52 H Creatinine (0.7 - 1.2 mg/dL) 8.2 *H Estimated GFR (>60 ml/min) 6 L Glucose (65 - 99 mg/dL) 118 H Calcium (8.4 - 10.2 mg/dL) 8.9 Phosphorus (2.5 - 4.5 mg/dL) 7.0 H Magnesium (1.6 - 2.3 mg/dL) 2.1 Cancelled Total Bilirubin (0.2 - 1.3 mg/dL) 1.0 AST (17 - 59 U/L) 20 ALT (21 - 72 U/L) 35 Troponin I (<0.11 ng/ml) 0.20 *H 0.18 *H Albumin (3.5 - 5.0 g/dL) 3.9 Hematology CBC w Diff NO MAN DIFF REQ WBC (4.8 - 10.8 /CUMM) 5.8 RBC (4.70 - 6.10 /CUMM) 3.64 L Hgb (14.0 - 18.0 G/DL) 10.6 L Hct (42 - 52 %) 32.7 L MCV (80.0 - 94.0 FL) 89.9 MCH (27.0 - 31.0 PG) 29.3 RDW (11.5 - 14.5 %) 15.5 H Plt Count (130 - 400 /CUMM) 115 L MPV (7.4 - 10.4 FL) 11.6 H Gran % (42.2 - 75.2 %) 85.8 H Lymphocytes % (20.5 - 51.1 %) 6.8 L Monocytes % (1.7 - 9.3 %) 7.3 Eosinophils % (0 - 5 %) 0 Basophils % (0.0 - 2.0 %) 0.1 Absolute Granulocytes (1.4 - 6.5 /CUMM) 5.0 Absolute Lymphocytes (1.2 - 3.4 /CUMM) 0.4 L Absolute Monocytes (0.10 - 0.60 /CUMM) 0.4 Absolute Eosinophils (0.0 - 0.7 /CUMM) 0 Absolute Basophils (0.0 - 0.2 /CUMM) 0 PUBS MCHC (33.0 - 37.0 G/DL) 32.6 L 09/15 1710 1625 1614 Blood Gas pH (7.35 - 7.45 PH) 7.40 pCO2 (35 - 45 TORR) 38 pO2 (80 - 100 TORR) 107 H HCO3 (21 - 28 MEQ/L) 23 ABG O2 Sat (Measured) (>96.0 %) 97.0 P-50 (Temp Corrected) N Carboxyhemoglobin (1.5 - 5.0 %) 0.2 L O2 Concentration % 35% Temperature (97.0 - 100.0 FARH) 99.9 Respiration Rate (BPM) 20 O2 Delivery Method BIPAP Vent Mode ST Expiratory Pressure (CM H2O P) 6 Inspiratory Pressure (CM H2O P) 18 Chemistry Plasma Potassium (3.4 - 4.4 MMOL/L) 5.8 H Troponin I Cancelled Coagulation PT Cancelled INR Cancelled Miscellaneous Phlebotomy Draw Site RIGHT RADIAL Urines Urine Color Cancelled Urine Clarity Cancelled Urine pH Cancelled Ur Specific [place] Cancelled Urine Protein Cancelled Urine Ketones Cancelled Urine Nitrite Cancelled Urine Bilirubin Cancelled Urine Urobilinogen Cancelled Ur Leukocyte Esterase Cancelled Ur Microscopic Cancelled Urine Hemoglobin Cancelled Urine Glucose Cancelled 09/15 1355 Chemistry Sodium (137 - 145 mmol/L) 135 L Potassium (3.5 - 5.1 mmol/L) 6.0 *H Chloride (98 - 107 mmol/L) 87 L Carbon Dioxide (22 - 30 mmol/L) 28 Anion Gap (5 - 16) 20 H BUN (9 - 20 mg/dL) 39 H Creatinine (0.7 - 1.2 mg/dL) 6.6 *H Estimated GFR (>60 ml/min) 8 L BUN/Creatinine Ratio (7 - 25 %) 5.9 L Glucose (65 - 99 mg/dL) 116 H Calcium (8.4 - 10.2 mg/dL) 9.3 Magnesium (1.6 - 2.3 mg/dL) 1.9 Troponin I (<0.11 ng/ml) 0.08 Coagulation PT (9.4 - 12.5 SEC) 13.3 H INR (0.90 - 1.17) 1.27 H APTT (25 - 37 SEC) 33 D-Dimer (70 - 232 ng/ml) 814 H Hematology CBC w Diff MAN DIFF ORDERED WBC (4.8 - 10.8 /CUMM) 12.0 H RBC (4.70 - 6.10 /CUMM) 4.02 L Hgb (14.0 - 18.0 G/DL) 11.8 L Hct (42 - 52 %) 36.4 L MCV (80.0 - 94.0 FL) 90.4 MCH (27.0 - 31.0 PG) 29.3 RDW (11.5 - 14.5 %) 15.3 H Plt Count (130 - 400 /CUMM) 151 MPV (7.4 - 10.4 FL) 11.9 H Gran % (42.2 - 75.2 %) 84.3 H Lymphocytes % (20.5 - 51.1 %) 7.8 L Monocytes % (1.7 - 9.3 %) 7.0 Eosinophils % (0 - 5 %) 0.5 Basophils % (0.0 - 2.0 %) 0.4 Absolute Granulocytes (1.4 - 6.5 /CUMM) 10.1 H Segmented Neutrophils (42.2 - 75.2 %) 75 Band Neutrophils (0.0 - 5.0 %) 8 H Absolute Lymphocytes (1.2 - 3.4 /CUMM) 0.9 L Lymphocytes (20.5 - 51.1 %) 9 L Monocytes (1.7 - 9.3 %) 7 Absolute Monocytes (0.10 - 0.60 /CUMM) 0.8 H Eosinophils (0 - 5.0 %) 1 Absolute Eosinophils (0.0 - 0.7 /CUMM) 0.1 Absolute Basophils (0.0 - 0.2 /CUMM) 0.1 Platelet Estimate (ADEQUATE) VERIFIED BY SMEAR Polychromasia 1+ Poikilocytosis 1+ Anisocytosis 1+ Ovalocytes 1+ Stomatocytes 1+ PUBS MCHC (33.0 - 37.0 G/DL) 32.5 L
--- NOTE | 2016-09-18 09:37 | PN- CRCU ---
Subjective HPI/Critical Care Issues: DOing ok Patient was sitting upright and comfortably in chair at bedside this a.m. He was on 3 L nasal cannula, down from 4 L previously. He stated he slept well last night. Denies any shortness of breath. He did however endorse a little chest tightness, but denied chest pain. He said he was transient and went to away. Patient denies any other complaints. No acute overnight events. Objective Current Medications: Current Medications Sig/Zoe Start time Last Medication Dose Route Stop Time Status Admin Acetaminophen/ 1 TAB DAILY PRN 09/15 1730 AC Hydrocodone Bitart PO Atorvastatin Calcium 5 MG DAILY 09/16 1000 AC 09/18 PO 0901 Bisacodyl 5 MG DAILY 09/17 1513 AC 09/17 PO 1801 Calcium Acetate 2,001 MG WM 09/16 0800 AC 09/18 PO 0801 Ceftazidime 1,000 MG DAILY@1700 09/15 1700 AC 09/17 IV 1629 Diltiazem HCl 125 MG ONCE ONE 09/17 1215 DC 09/17 Sodium Chloride 100 ML IV 09/17 2214 1230 Diltiazem HCl 125 MG Q12H 09/15 1500 DC 09/17 Dextrose/Water 100 ML IV 0352 Diphenhydramine HCl 50 MG .STK-MED ONE 09/18 0000 DC PO 09/18 0001 Diphenhydramine HCl 50 MG ONCE ONE 09/17 2345 DC 09/18 PO 09/17 2346 0003 Docusate Sodium 100 MG DAILY NEEDED PRN 09/16 2145 AC 09/16 PO 2148 Epoetin Ryan 6,000 UNIT MoWeFr PRN 09/17 0845 AC IV Heparin Sodium 5,000 UNIT Q8 09/15 2200 AC 09/18 (Porcine) SC 0545 Ipratropium [place] 2.5 ML TID 09/15 2200 AC 09/18 INH 0827 Lidocaine 1 PAT 0600 09/16 0600 AC 09/18 EXT 0545 Metoprolol Succinate 37.5 MG DAILY 09/16 1000 DC 09/16 PO 0637 Metoprolol Tartrate 50 MG BID 09/17 1058 AC 09/18 PO 0902 Morphine Sulfate 1 MG Q6P PRN 09/16 1530 AC 09/16 IV 1537 Multivitamins 1 TAB DAILY 09/16 1000 AC 09/18 PO 0901 Omeprazole 40 MG DAILY AC 09/16 0700 AC 09/18 PO 0548 Prednisone 50 MG DAILY 09/17 1000 AC 09/18 PO 0901 Roflumilast 500 MCG DAILY 09/15 1715 AC 09/18 PO 0902 Vital Signs & I&O Last 24 Hrs of Vitals and I&O: Vital Signs Date Time Temp Pulse Resp B/P Pulse O2 O2 Flow FiO2 Ox Delivery Rate 09/18 0902 97 149/81 09/18 0829 95 Nasal 3.0L Cannula 09/18 0800 98.6 96 18 138/60 97 Nasal 3.0L Cannula 09/18 0800 96 Nasal 3.0L Cannula 09/18 0400 96 Nasal 4.0L Cannula 09/18 0315 87 94 09/18 0000 97.3 88 20 156/83 96 Nasal 4.0L Cannula 09/18 0000 96 Nasal 4.0L Cannula 09/17 2120 102 178/90 09/17 2107 97 Nasal 4.0L Cannula 09/17 1999 96 Nasal 4.0L Cannula 09/17 1600 Nasal 4.0L Cannula 09/17 1600 98.0 92 20 138/70 95 Nasal 4.0L Cannula 09/17 1346 107 140/72 09/17 1200 95 Nasal 2.0L Cannula Intake & Output 09/18 1600 09/18 0800 09/18 0000 Intake Total 360 50 Output Total 0 0 Balance 360 50 Intake, IV 0 0 Intake, Oral 360 50 Number 1 0 Bowel Movements Output, Urine 0 0 Patient 190 lb Weight Impression/Plan Impression/Plan Impression/Plan: CT scan of the chest IMPRESSION: 1. No pulmonary embolism. 2. No significant interval change in appearance of the thoracic aorta, with diffuse atherosclerotic disease as well as multiple small outpouchings/saccular aneurysms. This was described on prior CTA chest. 3. There is multifocal parenchymal opacification in the right lung which is most suspicious for an infectious/inflammatory process. 4. Bilateral emphysema and bronchiectasis. 5. Diffuse coronary artery calcification. 6. Additional findings as described. VTE: Negative. Significant data Echocardiogram pending chest x-ray done showed vascular congestion improvement in opacity of the chest in the right lower lobe Potassium still elevated White count is 8.8 hemoglobin 11.0 so far the cultures have been unremarkable DICTATED BY: DERECK HAMILTON MD DATE/TIME DICTATED:09/15/162014 Physical Exam Dyspneic Head: atraumatic, normal appearance ON bipap Ears, Nose, Throat: normal ENT inspection Neck: normal inspection Respiratory: lungs clear, no sig wheezing with prolonged exp tender R ant ribs to palpaption much improved since last admission Cardiovascular: regular rate/rhythm, friction rub (none) Abdomen: soft, non-tender Extremities: no edema ECHO Reduced LVEF to 40-45 percent IMPRESSION This is a gentleman with 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 Now in sinus rhythm with trace elevated troponin, Cardio onboard now has New onset reduced LVEF to 40-45 % * Resolved Acute hypoxic resp failure due to Fluid overload, chronic respinsuff from end stage copd, vicky, ohv, pulm htn, now * ESRD with hyperkalemia, with fluid overload with mild hyperkalemia clinically stable, patient is clinically better now as he is having dialysis * Recent right-sided musculoskeletal chest pain, with underlying atelectasis versus infiltrate * Sig copd with no evidence of sig exacerbation as he has no significant wheezing * End Stage copd with Previous bronchiectasis. 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 However pna cannot be excluded as he was on steroids and this may need to be treated temporarily until he improves * SIg thoracic aneurysm saccular in nature with no worsening of his aneurysm or any dissection by recent ct * Obstructive sleep apnea on CPAP compliant * Chronic steroid use, hence immunosuppressed * Morbid obesity with noncompliance * Previous history of biliary sepsis obstruction no no evidence suggestive of that with previous stent with pneumobilia * No pe CTA negative REC Continue current DC iv abx and change to po cipro - dose per renal Prednisone with a slow taper in the next 14 days Ipratropium nebulizer therapy 3 times a day Avoid albuterol for now Continue Lidoderm patch Resume cpap at hs Ok to the tele floor today if cardio agrees Code Status: Full Code
--- NOTE | 2016-09-18 11:19 | NUR ---
@0800-PT ALERT AND ORIENTED, VSS. AFEBRILE. FOLLOWS COMMANDS, CALM AND COOP. TITRATED O2 TO 3LNC FROM 4LNC, O2SAT 96%. EXP WHEEZES AUSCULTATED.NEBS PER RT. NONPROD COUGH. CONT ON PO PRED TAPER. NSR/1ST DEGREE AVB-MA 0.20-0.24. BP STABLE. CONT ON METOPROLOL 50MG BID. RENAL DIET PROVIDED, VENITA WELL. [facility]-LAST DIALYSIS YEST-2L REMOVED. AV FISTULA NOTED TO DHRUV, +BRUIT, +THRILL. OOB ASSIST X 1, VENITA ACTIVITY WELL. PHOS LO CONT TID. CONT TO MONITOR, CALL [facility] WITHIN REACH. ? DOWNGRADE THIS AFTER CARDIOLOGY REVIEW.
--- NOTE | 2016-09-18 11:28 | PN- Cardiology ---
Subjective Subjective: The patient had some mild chest tightness earlier this morning which has resolved. No shortness of breath. No palpitations. No diaphoresis. Objective Vital Signs and I&Os Vital Signs Date Time Temp Pulse Resp B/P Pulse O2 O2 Flow FiO2 Ox Delivery Rate 09/18 0902 97 149/81 09/18 0829 95 Nasal 3.0L Cannula 09/18 0800 98.6 96 18 138/60 97 Nasal 3.0L Cannula 09/18 0800 96 Nasal 3.0L Cannula 09/18 0400 96 Nasal 4.0L Cannula 09/18 0315 87 94 09/18 0000 97.3 88 20 156/83 96 Nasal 4.0L Cannula 09/18 0000 96 Nasal 4.0L Cannula 09/17 2120 102 178/90 09/17 2107 97 Nasal 4.0L Cannula 09/17 1999 96 Nasal 4.0L Cannula 09/17 1600 Nasal 4.0L Cannula 09/17 1600 98.0 92 20 138/70 95 Nasal 4.0L Cannula 09/17 1346 107 140/72 09/17 1200 95 Nasal 2.0L Cannula Intake & Output 09/18 1600 09/18 0800 09/18 0000 09/17 1600 09/17 0800 09/17 0000 Intake Total 832 43 9984.5 393 336 Output Total 0 0 1999 1999 Balance 360 50 -943.5 393 -1664 Intake, IV 0 0 96.5 93 96 Intake, Oral 360 50 960 300 240 Number 1 0 0 Bowel Movements Output, 1999 1999 Dialysate Output, Urine 0 0 0 Patient 190 lb 184 lb 188 lb 190 lb Weight Physical Exam: Gen: The patient is in no acute distress HEENT: Normal nose, ears, and oropharynx. Pupils equal bilaterally. Conjunctiva normal. Neck: Supple with no JVD, no masses, and no thyromegaly Lungs: Scattered rhonchi bilaterally with normal respiratory effort Heart: RRR, S1, S2, 1/6 systolic murmur. No peripheral edema, 1+ pulses in the lower extremities bilaterally Abdomen: Soft, nontender, no masses. No hepatomegaly. No splenomegaly Extremities: No clubbing or cyanosis. Normal muscle strength in the upper and lower extremities Skin: Normal skin turgor with no skin ulcers or lesions noted. Current Medications: Current Medications Sig/Zoe Start time Last Medication Dose Route Stop Time Status Admin Acetaminophen/ 1 TAB DAILY PRN 09/15 1730 AC Hydrocodone Bitart PO Atorvastatin Calcium 5 MG DAILY 09/16 1000 AC 09/18 PO 0901 Bisacodyl 5 MG DAILY 09/17 1513 AC 09/17 PO 1801 Calcium Acetate 2,001 MG WM 09/16 0800 AC 09/18 PO 0801 Ceftazidime 1,000 MG DAILY@1700 09/15 1700 DC 09/17 IV 1629 Ciprofloxacin 500 MG DAILY 09/18 1108 AC PO 09/22 1100 Diltiazem HCl 125 MG ONCE ONE 09/17 1215 DC 09/17 Sodium Chloride 100 ML IV 09/17 2214 1230 Diphenhydramine HCl 50 MG .STK-MED ONE 09/18 0000 DC PO 09/18 0001 Diphenhydramine HCl 50 MG ONCE ONE 09/17 2345 DC 09/18 PO 09/17 2346 0003 Docusate Sodium 100 MG DAILY NEEDED PRN 09/16 2145 AC 09/16 PO 2148 Epoetin Ryan 6,000 UNIT MoWeFr PRN 09/17 0845 AC IV Heparin Sodium 5,000 UNIT Q8 09/15 2200 AC 09/18 (Porcine) SC 0545 Ipratropium [place] 2.5 ML TID 09/15 2200 AC 09/18 INH 0827 Lidocaine 1 PAT 0600 09/16 0600 AC 09/18 EXT 0545 Metoprolol Tartrate 50 MG BID 09/17 1058 AC 09/18 PO 0902 Morphine Sulfate 1 MG Q6P PRN 09/16 1530 AC 09/16 IV 1537 Multivitamins 1 TAB DAILY 09/16 1000 AC 09/18 PO 0901 Omeprazole 40 MG DAILY AC 09/16 0700 AC 09/18 PO 0548 Prednisone 10 MG DAILY 09/29 1000 AC PO 10/02 0959 Prednisone 20 MG DAILY 09/26 1000 AC PO 09/29 0959 Prednisone 30 MG DAILY 09/23 1000 AC PO 09/26 0959 Prednisone 40 MG DAILY 09/20 1000 AC PO 09/23 0959 Prednisone 50 MG DAILY 09/19 1000 CAN PO 10/02 0959 Prednisone 50 MG DAILY 09/19 1000 AC PO 09/20 0959 Prednisone 50 MG DAILY 09/17 1000 DC 09/18 PO 0901 Roflumilast 500 MCG DAILY 09/15 1715 AC 09/18 PO 0902 Results Last 48 Hrs of Labs/Mics: Laboratory Tests 09/18/16 0530: Anion Gap 16, Estimated GFR 11 L, Glucose 92, Calcium 8.7, Phosphorus 7.6 H, Magnesium 2.1, Total Bilirubin 0.6, AST 35, ALT 29, Albumin 3.7, CBC w Diff NO MAN DIFF REQ, RBC 3.80 L, MCV 90.9, MCH 29.5, RDW 15.3 H, MPV 10.8 H, Gran % 84.8 H, Lymphocytes % 6.7 L, Monocytes % 8.4, Eosinophils % 0, Basophils % 0.1 , Absolute Granulocytes 6.0, Absolute Lymphocytes 0.5 L, Absolute Monocytes 0.6 , Absolute Eosinophils 0, Absolute Basophils 0, PUBS MCHC 32.4 L 09/17/16 0400: Anion Gap 17 H, Estimated GFR 8 L, Glucose 104 H, Calcium 9.1, Phosphorus 9.2 H, Magnesium 2.1, Total Bilirubin 0.9, AST 37, ALT 34, Creatine Kinase 210 H, Albumin 4.1, CBC w Diff MAN DIFF ORDERED, RBC 3.76 L, MCV 90.5, MCH 29.2, RDW 15.3 H, MPV 11.3 H, Gran % 86.7 H, Lymphocytes % 6.7 L, Monocytes % 6.5, Eosinophils % 0, Basophils % 0.1, Absolute Granulocytes 7.6 H, Segmented Neutrophils 73, Band Neutrophils 12 H, Absolute Lymphocytes 0.6 L, Lymphocytes 9 L, Monocytes 3, Absolute Monocytes 0.6, Absolute Eosinophils 0, Absolute Basophils 0, Metamyelocytes 3 H, Platelet Estimate DECREASED, Polychromasia 1+, PUBS MCHC 32.2 L 09/16/16 1235: Troponin I 0.16 *H Recent Imaging Studies: Chest x-ray: 1. Pulmonary emphysema. 2. Subtle peribronchial interstitial lung thickening in right lower lobe is unchanged compared to 09/16/2016. This suggests presence of airway inflammation. No interval development of focal consolidation. Echocardiogram 09/17/16: 1. This was a technically dificult examination. 2. Fibrocalcific degeneration is present in the aortic valve with mild valvular stenosis (PG 16 mmHg; MG 8 mmHg;JANIE 1.8 cm2). 3. Thickening and calcification of the mitral leaflets is present with moderate anular calcification and mild to moderate mitral insufficiency with moderate left atrial enlargement. 4. There is no significant pericardial fluid present. 5. The left ventricular chamber size is normal. There is global hypokinesia present which is worse in the inferior and apical segments. The ejection fraction is approximately 40-45%. Diastolic dysfunction is present. 6. The right heart structures are grossly normal but were not optimally assessed. Mild tricuspid insufficiency is present with no evidence of pulmonary hypertension. 7. Lipomatous atrial septal hypertrophy is present. 8. Since the prior study, the LV ejection fraction has decreased. Assessment/Plan Assessment/Plan Assessment: 1. CAD, stable 2. COPD, with exacerbation 3. Possible pneumonia 4. End-stage renal disease with volume overload 5. Saccular aneurysm of the descending thoracic aorta 6. Atypical chest pain 7. Narrow complex tachycardia, likely sinus tachycardia, resolved 8. Mild troponin elevation, likely secondary to demand ischemia 9. New left ventricular systolic dysfunction on echocardiogram, uncertain etiology. Rule out ischemic cardiomyopathy. Possibly secondary to tachycardia. Plan: * Continue p.o. Metoprolol * If okay with nephrology, start lisinopril 10 mg po daily for left ventricular systolic dysfunction * Dialysis with fluid removal as per nephrology * Possible further workup for left ventricular dysfunction in the future. Continue telemetry? Yes
--- NOTE | 2016-09-18 12:09 | NUR ---
@1200-PT DOWNGRADED TO TELE HOLD. PLACED ON 1000ML FLUID RESTRICT PER RENAL RECOMMENDATIONS. PO CIPRO ADMINISTERED ORD. CONT TO MONITOR, CALL LIVAN MERA.
--- NOTE | 2016-09-18 14:09 | NUR ---
@1350-PT C/O LOWER BACK PAIN-PT MEDICATED WITH PRN MORPHINE AND WARM SOCK APPLIED TO SITE. CONT TO MONITOR, CALL [facility] WITHIN REACH
[2016-09-18 16:00] VITALS: BP 136/68
[2016-09-19] VITALS: BP 120/80
[2016-09-19 08:00] VITALS: BP 134/88
--- NOTE | 2016-09-19 08:14 | PN- Resident CRCU ---
Subjective HPI/CRCU Issues: Seem to be doing very well this morning. He was sitting up doubly in bedside chair. His chest still felt tight this AM. Described it as a global sensation in both the right and left side of his chest. Did not seem exertional in nature. He is going for dialysis this a.m. 24 Hour Events: pt is currently a telemetry hold. Vitals today where 98.5, 82, 24, 120/80, 93% on room air Objective Vital Signs & I&O Last 8 Hrs of Vitals and I&O: Vitals today: 98.9, 82, 24, 120/80, 93% on 3 L O2 Exam General Appearance: alert, awake, comfortable Head: atraumatic, normal appearance, active bleeding Ears, Nose, Throat: normal pharynx Neck: supple Respiratory: decreased breath sounds, crackles, rhonchi, wheezing Cardiovascular: regular rate/rhythm Gastrointestinal: soft, non-tender Extremities: no edema Cranial Nerves: normal hearing, normal speech Current Medications: Current Medications Sig/Zoe Start time Last Medication Dose Route Stop Time Status Admin Acetaminophen/ 1 TAB DAILY PRN 09/15 1730 AC 09/20 Hydrocodone Bitart PO 1037 Atorvastatin Calcium 5 MG DAILY 09/16 1000 AC 09/20 PO 1005 Bisacodyl 5 MG DAILY 09/17 1513 AC 09/20 PO 1001 Calcium Acetate 2,001 MG WM 09/16 0800 AC 09/20 PO 1145 Ciprofloxacin 500 MG DAILY 09/18 1108 AC 09/20 PO 09/27 1100 1005 Docusate Sodium 100 MG DAILY NEEDED PRN 09/16 2145 AC 09/16 PO 2148 Epoetin Ryan 6,000 UNIT MoWeFr PRN 09/17 0845 AC IV Heparin Sodium 5,000 UNIT Q8 09/15 2200 AC 09/19 (Porcine) SC 0617 Ipratropium [place] 2.5 ML TID 09/15 2200 09/20 INH 1400 Lidocaine 1 PAT 0600 09/16 0600 09/20 EXT 0708 Lisinopril 10 MG DAILY 09/18 1334 AC 09/20 PO 1004 Metoprolol Tartrate 50 MG BID 09/17 1058 AC 09/20 PO 1004 Morphine Sulfate 1 MG Q6P PRN 09/16 1530 AC 09/18 IV 1329 Multivitamins 1 TAB DAILY 01/15 1000 AC 09/20 PO 1003 Omeprazole 40 MG DAILY AC 09/16 0700 AC 09/20 PO 0709 Prednisone 10 MG DAILY 09/29 1000 AC PO 10/02 0959 Prednisone 20 MG DAILY 09/26 1000 AC PO 09/29 0959 Prednisone 30 MG DAILY 09/23 1000 AC PO 09/26 0959 Prednisone 40 MG DAILY 09/20 1000 AC 09/20 PO 09/23 0959 1005 Prednisone 50 MG DAILY 09/19 1000 DC 09/19 PO 09/20 0959 1313 Roflumilast 500 MCG DAILY 09/15 1715 AC 09/20 PO 1002 Impression/Plan Impression/Problem List Impression: This a.m. patient states he feels much better. He was on 3L NC almost to his home requirement of 2 L. He is on Saturday dialysis regimen, scheduled for dialysis today. 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 Patient of Dr. Belle. CTA Chest 09/15/15 showed no pulmonary embolism , no change in thoracic aorta saccular aneurysms, did show multifocal parenchymal opacification right lung which is suspicious for inflammatory versus infectious process. It also confirmed bilateral emphysema and bronchiectasis. * Patient got IV methylprednisone 60 mg 1, subsequently was changed to by mouth prednisone 50 mg every daily.He is currently on steroid taper. * Got Ceftaz from 09/15-09/18 then switched to Cipro on * Appreciate Pulmonology consult Infectious Diseases: Patient is on chronic steroids for COPD, likely immunosuppressed. 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 Patient has previous history of biliary sepsis. No evidence of biliary process currently. Patient currently treated for possible pneumonia. * Con't Cipro Cardiovascular:History of CAD s/p stent, hypertension, Saccular aneurysm of descending thoracic aorta. Patient of Dr. Recio. Collateral information obtained from nurse prationer mentions patient has had a history of Atrial Fibrillation, however records do no appear to mention this. Echo (06/15/16) demonstrates EF 50-55% with aortic stenosis. Recent echo done yesterday showed worsening of cardiovascular function with EF of 40-45% * Cardizem drip discontinued 09/17/2016 * Metoprolol increased to 50mg PO BID * Atorvastatin 5mg PO Daily * Lisinopril added 09/18/2016 * Appreciate Cardiology consult Renal: Patient with history of ESRD on HD (M,W,F). Patient of Dr. Shields. Going for HD today. Patient reports he is anuric. * Diaylsis (M,W,F) * PhosLo 2g * Nephrocaps * Nephrology consult placed Pain Plan: * Vicodin 1 TAB PO DAILY * Lidocaine Patch Problem List: 1. ARF 2. CHRONIC KIDNEY DISEASE STAGE 3 3. Chronic hypercapnic respiratory failure Pain Ratin Pain Location: none Pain Goal: Remain pain free Tomorrow's Labs & Rationales: ICU bundle Plan DVT/Prophylaxis: pharmacological, heparin Code Status: Full Code
[2016-09-19 09:23] LABS: ABSOLUTE BASOPHIL COUNT 0 /CUMM (0.0-0.2); ABSOLUTE EOSINOPHIL COUNT 0 /CUMM (0.0-0.7); ABSOLUTE LYMPH COUNT 1.1 /CUMM (1.2-3.4); ABSOLUTE MONOCYTE COUNT 0.8 /CUMM (0.10-0.60); BASOPHIL % 0.3 % (0.0-2.0); EOSINOPHIL % 0 % (0-5); GRANULOCYTE % 78.2 % (42.2-75.2); HEMATOCRIT 35.3 % (42-52); MEAN CORPUSCULAR HGB 29.4 PG (27.0-31.0); MEAN CORPUSCULAR HGB CONC 32.5 G/DL (33.0-37.0); MEAN CORPUSCULAR VOLUME 90.3 FL (80.0-94.0); MEAN PLATELET VOLUME 11.5 FL (7.4-10.4); PLATELET COUNT 132 /CUMM (130-400); RBC DISTRIBUTION WIDTH 14.9 % (11.5-14.5); RED BLOOD CELL CT 3.91 /CUMM (4.70-6.10)
--- NOTE | 2016-09-19 10:11 | PN- Nephrology ---
Assessment/Plan Assessment: 1. Shortness of breath. Suspect this is due for to his COPD rather than volume overload. 2. Chronic kidney disease seen with hemodialysis in progress. The next treatment will be offered on Saturday Suggestion: 1. Maintain a 2 g sodium, 2 g potassium, diet with a 1000 mL fluid restriction per day. 2. Maintain strict I's and O's and daily weights for now 3. Next dialysis will be on 09/21/2016 4. Dry weight is likely be 85 kg Subjective Subjective: Patient seen with hemodialysis in progress. His blood pressure is dropping as ultrafiltration is attempted. Objective Vital Signs and I&Os Vital Signs Date Time Temp Pulse Resp B/P Pulse O2 O2 Flow FiO2 Ox Delivery Rate 09/19 0800 98 Nasal 3.0L Cannula 09/19 0800 97.8 97 22 134/88 98 Nasal 3.0L Cannula 09/19 0705 97 Nasal 3.0L Cannula 09/19 0000 98.9 82 24 120/80 93 Room Air 09/18 2111 90 20 156/90 09/18 1920 97 Nasal 3.0L Cannula 09/18 1600 95 Nasal 3.0L Cannula 09/18 1600 98.2 106 20 136/68 95 Nasal 3.0L Cannula 09/18 1429 94 130/60 Intake & Output 09/19 1600 09/19 0400 09/18 1600 09/18 0400 09/17 1600 09/17 0400 Intake Total 200 240 240 26 8209.5 336 Output Total 0 0 0 1999 1999 Balance 200 240 890 50 -550.5 -1664 Intake, IV 10 0 189.5 96 Intake, Oral 200 240 051 03 3967 240 Number 2 0 0 Bowel Movements Output, 1999 1999 Dialysate Output, Urine 0 0 0 0 Patient 187 lb 190 lb 184 lb 190 lb Weight Physical Exam: General Appearance: well developed/nourished, no apparent distress, alert, awake , comfortable, obese Head: atraumatic, normal appearance Ears, Nose, Throat: hearing grossly normal Neck: normal inspection, supple, full range of motion Respiratory: his lungs are clear, no wheezing today Cardiovascular: regular rate/rhythm Abdomen: normal bowel sounds, large protuberant abdomen. Bowel sounds throughout. He was examined sitting up. Back: normal inspection, no vertebral tenderness, no CVA tenderness Extremities: normal inspection, no edema Neurologic/Psychiatric: no motor/sensory deficits, awake, alert, oriented x 3, normal mood/affect, o gross neurologic deficits Skin: intact, normal color, no rashes Lymphatic: no cervical or supraclavicular lymphadenopathy Current Medications: Current Medications Sig/Zoe Start time Last Medication Dose Route Stop Time Status Admin Acetaminophen/ 1 TAB DAILY PRN 09/15 1730 AC Hydrocodone Bitart PO Atorvastatin Calcium 5 MG DAILY 09/16 1000 AC 09/18 PO 0901 Bisacodyl 5 MG DAILY 09/17 1513 AC 09/17 PO 1801 Calcium Acetate 2,001 MG WM 09/16 0800 AC 09/18 PO 1603 Ceftazidime 1,000 MG DAILY@1700 09/15 1700 DC 09/17 IV 1629 Ciprofloxacin 500 MG DAILY 09/18 1108 AC 09/18 PO 09/22 1100 1211 Docusate Sodium 100 MG DAILY NEEDED PRN 09/16 2145 AC 09/16 PO 2148 Epoetin Ryan 6,000 UNIT MoWeFr PRN 09/17 0845 AC IV Heparin Sodium 5,000 UNIT Q8 09/15 2200 AC 09/19 (Porcine) SC 0617 Ipratropium [place] 2.5 ML TID 09/15 2200 AC 09/19 INH 0704 Lidocaine 1 PAT 0600 09/16 0600 AC 09/19 EXT 0618 Lisinopril 10 MG DAILY 09/18 1334 AC 09/18 PO 1429 Metoprolol Tartrate 50 MG BID 09/17 1058 AC 09/18 PO 2111 Morphine Sulfate 1 MG Q6P PRN 09/16 1530 AC 09/18 IV 1329 Multivitamins 1 TAB DAILY 09/16 1000 AC 09/18 PO 0901 Omeprazole 40 MG DAILY AC 09/16 0700 AC 09/19 PO 0614 Prednisone 10 MG DAILY 09/29 1000 AC PO 10/02 0959 Prednisone 20 MG DAILY 09/26 1000 AC PO 09/29 0959 Prednisone 30 MG DAILY 09/23 1000 AC PO 09/26 0959 Prednisone 40 MG DAILY 09/20 1000 AC PO 09/23 0959 Prednisone 50 MG DAILY 09/19 1000 CAN PO 10/02 0959 Prednisone 50 MG DAILY 09/19 1000 AC PO 09/20 0959 Prednisone 50 MG DAILY 09/17 1000 DC 09/18 PO 0901 Roflumilast 500 MCG DAILY 09/15 1715 AC 09/18 PO 0902 Results Pertinent Lab Results: Laboratory Tests 09/19 09/19 09/18 0820 0500 UNK Chemistry Sodium (137 - 145 mmol/L) 135 L Cancelled Cancelled Potassium (3.5 - 5.1 mmol/L) 5.1 Cancelled Cancelled Chloride (98 - 107 mmol/L) 94 L Cancelled Cancelled Carbon Dioxide (22 - 30 mmol/L) 27 Cancelled Cancelled Anion Gap (5 - 16) 14 Cancelled Cancelled BUN (9 - 20 mg/dL) 70 H Cancelled Cancelled Creatinine (0.7 - 1.2 mg/dL) 8.0 *H Cancelled Cancelled Estimated GFR (>60 ml/min) 7 L Glucose (65 - 99 mg/dL) 90 Cancelled Cancelled Calcium (8.4 - 10.2 mg/dL) 9.0 Cancelled Cancelled Phosphorus (2.5 - 4.5 mg/dL) 4.8 H Cancelled Cancelled Magnesium (1.6 - 2.3 mg/dL) 2.3 Cancelled Cancelled Total Bilirubin (0.2 - 1.3 mg/dL) 0.6 Cancelled Cancelled AST (17 - 59 U/L) 24 Cancelled Cancelled ALT (21 - 72 U/L) 37 Cancelled Cancelled Albumin (3.5 - 5.0 g/dL) 3.9 Cancelled Cancelled Hematology CBC w Diff NO MAN DIFF REQ WBC (4.8 - 10.8 /CUMM) 9.0 RBC (4.70 - 6.10 /CUMM) 3.91 L Hgb (14.0 - 18.0 G/DL) 11.5 L Hct (42 - 52 %) 35.3 L MCV (80.0 - 94.0 FL) 90.3 MCH (27.0 - 31.0 PG) 29.4 RDW (11.5 - 14.5 %) 14.9 H Plt Count (130 - 400 /CUMM) 132 MPV (7.4 - 10.4 FL) 11.5 H Gran % (42.2 - 75.2 %) 78.2 H Lymphocytes % (20.5 - 51.1 %) 12.5 L Monocytes % (1.7 - 9.3 %) 9.0 Eosinophils % (0 - 5 %) 0 Basophils % (0.0 - 2.0 %) 0.3 Absolute Granulocytes (1.4 - 6.5 /CUMM) 7.0 H Absolute Lymphocytes (1.2 - 3.4 /CUMM) 1.1 L Absolute Monocytes (0.10 - 0.60 /CUMM) 0.8 H Absolute Eosinophils (0.0 - 0.7 /CUMM) 0 Absolute Basophils (0.0 - 0.2 /CUMM) 0 PUBS MCHC (33.0 - 37.0 G/DL) 32.5 L 09/18 09/17 0530 0400 Chemistry Sodium (137 - 145 mmol/L) 140 135 L Potassium (3.5 - 5.1 mmol/L) 5.3 H 5.5 H Chloride (98 - 107 mmol/L) 98 94 L Carbon Dioxide (22 - 30 mmol/L) 27 24 Anion Gap (5 - 16) 16 17 H BUN (9 - 20 mg/dL) 43 H 54 H Creatinine (0.7 - 1.2 mg/dL) 5.4 *H 6.8 *H Estimated GFR (>60 ml/min) 11 L 8 L Glucose (65 - 99 mg/dL) 92 104 H Calcium (8.4 - 10.2 mg/dL) 8.7 9.1 Phosphorus (2.5 - 4.5 mg/dL) 7.6 H 9.2 H Magnesium (1.6 - 2.3 mg/dL) 2.1 2.1 Total Bilirubin (0.2 - 1.3 mg/dL) 0.6 0.9 AST (17 - 59 U/L) 35 37 ALT (21 - 72 U/L) 29 34 Creatine Kinase (55 - 170 U/L) 210 H Albumin (3.5 - 5.0 g/dL) 3.7 4.1 Hematology CBC w Diff NO MAN DIFF REQ MAN DIFF ORDERED WBC (4.8 - 10.8 /CUMM) 7.1 8.8 RBC (4.70 - 6.10 /CUMM) 3.80 L 3.76 L Hgb (14.0 - 18.0 G/DL) 11.2 L 11.0 L Hct (42 - 52 %) 34.5 L 34.0 L MCV (80.0 - 94.0 FL) 90.9 90.5 MCH (27.0 - 31.0 PG) 29.5 29.2 RDW (11.5 - 14.5 %) 15.3 H 15.3 H Plt Count (130 - 400 /CUMM) 126 L 137 MPV (7.4 - 10.4 FL) 10.8 H 11.3 H Gran % (42.2 - 75.2 %) 84.8 H 86.7 H Lymphocytes % (20.5 - 51.1 %) 6.7 L 6.7 L Monocytes % (1.7 - 9.3 %) 8.4 6.5 Eosinophils % (0 - 5 %) 0 0 Basophils % (0.0 - 2.0 %) 0.1 0.1 Absolute Granulocytes (1.4 - 6.5 /CUMM) 6.0 7.6 H Segmented Neutrophils (42.2 - 75.2 %) 73 Band Neutrophils (0.0 - 5.0 %) 12 H Absolute Lymphocytes (1.2 - 3.4 /CUMM) 0.5 L 0.6 L Lymphocytes (20.5 - 51.1 %) 9 L Monocytes (1.7 - 9.3 %) 3 Absolute Monocytes (0.10 - 0.60 /CUMM) 0.6 0.6 Absolute Eosinophils (0.0 - 0.7 /CUMM) 0 0 Absolute Basophils (0.0 - 0.2 /CUMM) 0 0 Metamyelocytes (0.0 - 1.0 %) 3 H Platelet Estimate (ADEQUATE) DECREASED Polychromasia 1+ PUBS MCHC (33.0 - 37.0 G/DL) 32.4 L 32.2 L
--- NOTE | 2016-09-19 10:29 | PN- Pulmonary ---
Subjective HPI/Critical Care Issues: Undergoing dialysis. Seem to be doing very well this morning. His chest still felt tight this AM. Described it as a global sensation in both the right and left side of his chest. Did not seem exertional in nature. 24 Hour Events: pt is currently a telemetry hold. Vitals today where 98.5, 82, 24, 120/80, 93% on room air Objective Current Medications: Current Medications Sig/Zoe Start time Last Medication Dose Route Stop Time Status Admin Acetaminophen/ 1 TAB DAILY PRN 09/15 1730 AC Hydrocodone Bitart PO Atorvastatin Calcium 5 MG DAILY 09/16 1000 AC 09/18 PO 0901 Bisacodyl 5 MG DAILY 09/17 1513 AC 09/17 PO 1801 Calcium Acetate 2,001 MG WM 09/16 0800 AC 09/18 PO 1603 Ceftazidime 1,000 MG DAILY@1700 09/15 1700 DC 09/17 IV 1629 Ciprofloxacin 500 MG DAILY 09/18 1108 AC 09/18 PO 09/22 1100 1211 Docusate Sodium 100 MG DAILY NEEDED PRN 09/16 2145 AC 09/16 PO 2148 Epoetin [place] 6,000 UNIT MoWeFr PRN 09/17 0845 AC IV Heparin Sodium 5,000 UNIT Q8 09/15 2200 AC 09/19 (Porcine) SC 0617 Ipratropium [place] 2.5 ML TID 09/15 2200 AC 09/19 INH 0704 Lidocaine 1 PAT 0600 09/16 0600 AC 09/19 EXT 0618 Lisinopril 10 MG DAILY 09/18 1334 AC 09/18 PO 1429 Metoprolol Tartrate 50 MG BID 09/17 1058 AC 09/18 PO 2111 Morphine Sulfate 1 MG Q6P PRN 09/16 1530 AC 09/18 IV 1329 Multivitamins 1 TAB DAILY 09/16 1000 AC 09/18 PO 0901 Omeprazole 40 MG DAILY AC 09/16 0700 AC 09/19 PO 0614 Prednisone 10 MG DAILY 09/29 1000 AC PO 10/02 0959 Prednisone 20 MG DAILY 09/26 1000 AC PO 09/29 0959 Prednisone 30 MG DAILY 09/23 1000 AC PO 09/26 0959 Prednisone 40 MG DAILY 09/20 1000 AC PO 09/23 0959 Prednisone 50 MG DAILY 09/19 1000 CAN PO 10/02 0959 Prednisone 50 MG DAILY 09/19 1000 AC PO 09/20 0959 Prednisone 50 MG DAILY 09/17 1000 DC 09/18 PO 0901 Roflumilast 500 MCG DAILY 09/15 1715 AC 09/18 PO 0902 Vital Signs & I&O Last 24 Hrs of Vitals and I&O: Vital Signs Date Time Temp Pulse Resp B/P Pulse O2 O2 Flow FiO2 Ox Delivery Rate 09/19 0800 98 Nasal 3.0L Cannula 09/19 0800 97.8 97 22 134/88 98 Nasal 3.0L Cannula 09/19 0705 97 Nasal 3.0L Cannula 09/19 0000 98.9 82 24 120/80 93 Room Air 09/18 2111 90 20 156/90 09/18 1920 97 Nasal 3.0L Cannula 09/18 1600 95 Nasal 3.0L Cannula 09/18 1600 98.2 106 20 136/68 95 Nasal 3.0L Cannula 09/18 1429 94 130/60 Intake & Output 09/19 1600 09/19 0800 09/19 0000 Intake Total 200 240 Output Total 0 Balance 200 240 Intake, Oral 200 240 Output, Urine 0 Patient 187 lb Weight Impression/Plan Impression/Plan Impression/Plan: CT scan of the chest IMPRESSION: 1. No pulmonary embolism. 2. No significant interval change in appearance of the thoracic aorta, with diffuse atherosclerotic disease as well as multiple small outpouchings/saccular aneurysms. This was described on prior CTA chest. 3. There is multifocal parenchymal opacification in the right lung which is most suspicious for an infectious/inflammatory process. 4. Bilateral emphysema and bronchiectasis. 5. Diffuse coronary artery calcification. 6. Additional findings as described. Physical Exam Dyspneic Head: atraumatic, normal appearance ON bipap Ears, Nose, Throat: normal ENT inspection Neck: normal inspection Respiratory: lungs clear, no sig wheezing with prolonged exp tender R ant ribs to palpaption much improved since last admission Cardiovascular: regular rate/rhythm, friction rub (none) Abdomen: soft, non-tender Extremities: no edema ECHO Reduced LVEF to 40-45 percent IMPRESSION This is a gentleman with end-stage COPD on oxygen, recurrent exacerbation on prednisone, Bronchiectasis due to recurrent infections, dietary noncompliance, ESRD, mild bilateral bronchiectasis, morbid obesity with obstructive sleep apnea , hypertension, previous hyperkalemia, cor pulmonale, on CPAP at home, previous hepatic disease with splenomegaly, moderate to severe pulmonary hypertension, myelodysplastic process, now comes in with * Resolved new onset atrial fibrillation now in sinus rhythm, with initial heart rate of 160. Now in sinus rhythm with trace elevated troponin, Cardio onboard now has New onset reduced LVEF to 40-45 % * Resolved Acute hypoxic resp failure due to Fluid overload, chronic respinsuff from end stage copd, vicky, ohv, pulm htn, now * ESRD with hyperkalemia, with fluid overload with mild hyperkalemia clinically stable, patient is clinically better now as he is having dialysis * Recent right-sided musculoskeletal chest pain, with underlying atelectasis versus infiltrate * Sig copd with no evidence of sig exacerbation as he has no significant wheezing * End Stage copd with Previous bronchiectasis. 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 However pna cannot be excluded as he was on steroids and this may need to be treated temporarily until he improves * SIg thoracic aneurysm saccular in nature with no worsening of his aneurysm or any dissection by recent ct * Obstructive sleep apnea on CPAP compliant * Chronic steroid use, hence immunosuppressed * Morbid obesity with noncompliance * Previous history of biliary sepsis obstruction no no evidence suggestive of that with previous stent with pneumobilia * No pe CTA negative REC Continue current Ask cardio to consider reducing betablocker as he tends to wheeze at 100 mg total (needs beta joshua however for his aorta, Prob can tolerate 37.5) (Ask if he is a candidate for ca channel joshua) Cipro with total abx duration of 10 days Prednisone with a slow taper in the next 12 days to off Ipratropium nebulizer therapy 3 times a day Avoid albuterol for now Continue Lidoderm patch Resume cpap at hs Increase activity
--- NOTE | 2016-09-19 13:00 | NUR ---
PATIENT BROUGHT OVER AROUND 0800 FOR DIALYSIS TO ROOM 186-1 ON [address] SO TWO PATIENT'S CAN BE DIALYZED AT ONCE. PATIENT PLACED ON DASH AND REPORT GIVEN TO LITHOGRAPHIC PLATE MAKER APPRENTICE AND TATIANA CHAUDHARI TO KEEP ON EYE ON PATIENT'S COBOL PROGRAMMER WHILE OVER THERE. THIS RN FREQUENTLY VISITED THE PATIENT ON [address] TO CHECK IN. 2 LITERS REMOVED PER LITHOGRAPHIC PLATE MAKER APPRENTICE, 3L LITERS ATTEMPTED, BUT B/P WOULD NOT TOLERATE ANOTHER LITER OFF. LITHOGRAPHIC PLATE MAKER APPRENTICE STATED THAT PATIENT'S FISTULA HAD DIFFICULTY CLOTTING OFF BUT EPOGEN WAS GIVEN, PATIENT'S VITALS WERE STABLE FOR TRANSFER BACK TO ICU AND PATIENT ATE HIS BREAKFAST AND LUNCH OVER THERE. PATIENT CAME BACK, WAS SETTLED BACK IN BED AND DENIED COMPLAINTS.
--- NOTE | 2016-09-19 13:36 | PN- Cardiology ---
Subjective Subjective: Clinically, the patient is doing about the same. Currently on dialysis. No active chest discomfort at the present time. Objective Vital Signs and I&Os Vital Signs Date Time Temp Pulse Resp B/P Pulse O2 O2 Flow FiO2 Ox Delivery Rate 09/19 1329 95 Nasal 3.0L Cannula 09/19 1313 108 150/80 09/19 1312 108 150/80 09/19 0800 98 Nasal 3.0L Cannula 09/19 0800 97.8 97 22 134/88 98 Nasal 3.0L Cannula 09/19 0705 97 Nasal 3.0L Cannula 09/19 0000 98.9 82 24 120/80 93 Room Air 09/18 2111 90 20 156/90 09/18 1920 97 Nasal 3.0L Cannula 09/18 1600 95 Nasal 3.0L Cannula 09/18 1600 98.2 106 20 136/68 95 Nasal 3.0L Cannula 09/18 1429 94 130/60 Intake & Output 09/19 1600 09/19 0800 09/19 0000 09/18 1600 09/18 0800 09/18 0000 Intake Total 200 240 530 360 50 Output Total 0 0 0 0 Balance 200 240 530 360 50 Intake, IV 10 0 0 Intake, Oral 200 240 520 360 50 Number 1 1 0 Bowel Movements Output, Urine 0 0 0 0 Patient 187 lb 190 lb Weight Current Medications: Current Medications Sig/Zoe Start time Last Medication Dose Route Stop Time Status Admin Acetaminophen/ 1 TAB DAILY PRN 09/15 1730 AC Hydrocodone Bitart PO Atorvastatin Calcium 5 MG DAILY 09/16 1000 AC 09/19 PO 1311 Bisacodyl 5 MG DAILY 09/17 1513 AC 09/17 PO 1801 Calcium Acetate 2,001 MG WM 09/16 0800 AC 09/19 PO 1312 Ciprofloxacin 500 MG DAILY 09/18 1108 AC 09/19 PO 09/22 1100 1312 Docusate Sodium 100 MG DAILY NEEDED PRN 09/16 2145 AC 09/16 PO 2148 Epoetin [place] 6,000 UNIT MoWeFr PRN 09/17 0845 AC IV Heparin Sodium 5,000 UNIT Q8 09/15 2200 AC 09/19 (Porcine) SC 0617 Ipratropium [place] 2.5 ML TID 09/15 2200 AC 09/19 INH 1325 Lidocaine 1 PAT 0600 09/16 0600 AC 09/19 EXT 0618 Lisinopril 10 MG DAILY 09/18 1334 AC 09/19 PO 1313 Metoprolol Tartrate 50 MG BID 09/17 1058 AC 09/19 PO 1312 Morphine Sulfate 1 MG Q6P PRN 09/16 1530 AC 09/18 IV 1329 Multivitamins 1 TAB DAILY 09/16 1000 AC 09/19 PO 1311 Omeprazole 40 MG DAILY AC 09/16 0700 AC 09/19 PO 0614 Prednisone 10 MG DAILY 09/29 1000 AC PO 10/02 0959 Prednisone 20 MG DAILY 09/26 1000 AC PO 09/29 0959 Prednisone 30 MG DAILY 09/23 1000 AC PO 09/26 0959 Prednisone 40 MG DAILY 09/20 1000 AC PO 09/23 0959 Prednisone 50 MG DAILY 09/19 1000 AC 09/19 PO 09/20 0959 1313 Roflumilast 500 MCG DAILY 09/15 1715 AC 09/19 PO 1313 Results Last 48 Hrs of Labs/Mics: Laboratory Tests 09/19/16 1140: BUN Pending 09/19/16 0820: Anion Gap 14, Estimated GFR 7 L, Glucose 90, Calcium 9.0, Phosphorus 4.8 H, Magnesium 2.3, Total Bilirubin 0.6, AST 24, ALT 37, Albumin 3.9, CBC w Diff NO MAN DIFF REQ, RBC 3.91 L, MCV 90.3, MCH 29.4, RDW 14.9 H, MPV 11.5 H, Gran % 78.2 H, Lymphocytes % 12.5 L, Monocytes % 9.0, Eosinophils % 0, Basophils % 0.3, Absolute Granulocytes 7.0 H, Absolute Lymphocytes 1.1 L, Absolute Monocytes 0.8 H, Absolute Eosinophils 0, Absolute Basophils 0, PUBS MCHC 32.5 L 09/19/16 0500: Sodium Cancelled, Potassium Cancelled, Chloride Cancelled, Carbon Dioxide Cancelled, Anion Gap Cancelled, BUN Cancelled, Creatinine Cancelled, Glucose Cancelled, Calcium Cancelled, Phosphorus Cancelled, Magnesium Cancelled, Total Bilirubin Cancelled, AST Cancelled, ALT Cancelled, Albumin Cancelled 09/18/16 1000: Sodium Cancelled, Potassium Cancelled, Chloride Cancelled, Carbon Dioxide Cancelled, Anion Gap Cancelled, BUN Cancelled, Creatinine Cancelled, Glucose Cancelled, Calcium Cancelled, Phosphorus Cancelled, Magnesium Cancelled, Total Bilirubin Cancelled, AST Cancelled, ALT Cancelled, Albumin Cancelled 09/18/16 0530: Anion Gap 16, Estimated GFR 11 L, Glucose 92, Calcium 8.7, Phosphorus 7.6 H, Magnesium 2.1, Total Bilirubin 0.6, AST 35, ALT 29, Albumin 3.7, CBC w Diff NO MAN DIFF REQ, RBC 3.80 L, MCV 90.9, MCH 29.5, RDW 15.3 H, MPV 10.8 H, Gran % 84.8 H, Lymphocytes % 6.7 L, Monocytes % 8.4, Eosinophils % 0, Basophils % 0.1 , Absolute Granulocytes 6.0, Absolute Lymphocytes 0.5 L, Absolute Monocytes 0.6 , Absolute Eosinophils 0, Absolute Basophils 0, PUBS MCHC 32.4 L Assessment/Plan Assessment/Plan Assessment: 1. CAD, stable 2. COPD, with exacerbation 3. Possible pneumonia 4. End-stage renal disease with volume overload 5. Saccular aneurysm of the descending thoracic aorta 6. Atypical chest pain 7. Narrow complex tachycardia, likely sinus tachycardia, resolved 8. Mild troponin elevation, likely secondary to demand ischemia 9. New left ventricular systolic dysfunction on echocardiogram, uncertain etiology. Rule out ischemic cardiomyopathy. Possibly secondary to tachycardia. Recommendations: -Clinically the patient appears stable - In view of pablo deterioration in the LVEF and history of known CAD the patient should have a pharmacologic nuclear stress test at some point. If necessary, this can be done as an outpatient. The other option would be to proceed directly to cardiac catheterization. I will discuss further with the patient. - Continue current therapy for now. Continue telemetry? Yes
[2016-09-19 16:00] VITALS: BP 120/62
--- NOTE | 2016-09-19 19:02 | NUR ---
1800: PATIENT C/O INCREASING SHORTNESS WITH EXERTION OF BREATH AND COLD SWEATS. NSR ON THE MONITOR 80S-90S, XBH=897/88, 96% ON 3L NC. RHONCHI/EXP/INSP WHEEZES HEARD ON EXERTION. TRC W/ NEB GIVEN PER RESPIRATORY WITH LITTLE IMPROVEMENT. HUMIDIFYING COMPONENT ADDED. PATIENT DENIES CHEST PAIN. DR. US AT THE BEDSIDE ASSESSING PATIENT. PATIENT IMPROVED WITH REST. PATIENT DENIES FURTHER COMPLAINTS. PASSED ON IN REPORT TO ONCOMING BOBBI CABRERA.
[2016-09-20] VITALS: BP 140/80
[2016-09-20 05:23] LABS: ABSOLUTE BASOPHIL COUNT 0 /CUMM (0.0-0.2); ABSOLUTE EOSINOPHIL COUNT 0 /CUMM (0.0-0.7); ABSOLUTE GRANULOCYTE CT 8.3 /CUMM (1.4-6.5); ABSOLUTE LYMPH COUNT 0.8 /CUMM (1.2-3.4); ABSOLUTE MONOCYTE COUNT 0.6 /CUMM (0.10-0.60); BASOPHIL % 0.1 % (0.0-2.0); EOSINOPHIL % 0 % (0-5); GRANULOCYTE % 84.7 % (42.2-75.2); HEMATOCRIT 36.9 % (42-52); MEAN CORPUSCULAR HGB 29.5 PG (27.0-31.0); MEAN CORPUSCULAR HGB CONC 31.9 G/DL (33.0-37.0); MEAN CORPUSCULAR VOLUME 92.4 FL (80.0-94.0); MEAN PLATELET VOLUME 11.2 FL (7.4-10.4); PLATELET COUNT 129 /CUMM (130-400); RBC DISTRIBUTION WIDTH 15.7 % (11.5-14.5); RED BLOOD CELL CT 3.99 /CUMM (4.70-6.10); WHITE BLOOD CELL COUNT 9.8 /CUMM (4.8-10.8)
[2016-09-20 08:00] VITALS: BP 138/78
--- NOTE | 2016-09-20 09:09 | PN- Pulmonary ---
Subjective HPI/Critical Care Issues: Doing much better Mild chest discomfort No cough no wheezing Chest x-ray done 2 days ago showed mild bronchitis no significant pneumonia Did have dialysis yesterday No further arrhythmias Review of symptoms otherwise unremarkable Objective Current Medications: Current Medications Sig/Zoe Start time Last Medication Dose Route Stop Time Status Admin Acetaminophen/ 1 TAB DAILY PRN 09/15 1730 AC 09/19 Hydrocodone Bitart PO 1508 Atorvastatin Calcium 5 MG DAILY 09/16 1000 AC 09/19 PO 1311 Bisacodyl 5 MG DAILY 09/17 1513 AC 09/17 PO 1801 Calcium Acetate 2,001 MG WM 09/16 0800 AC 09/19 PO 1658 Ciprofloxacin 500 MG DAILY 09/18 1108 AC 09/19 PO 09/22 1100 1312 Docusate Sodium 100 MG DAILY NEEDED PRN 09/16 2145 AC 09/16 PO 2148 Epoetin Ryan 6,000 UNIT MoWeFr PRN 09/17 0845 AC IV Heparin Sodium 5,000 UNIT Q8 09/15 2200 AC 09/19 (Porcine) SC 0617 Ipratropium Corn 2.5 ML TID 09/15 2200 AC 09/19 INH 1808 Lidocaine 1 PAT 0600 09/16 0600 AC 09/20 EXT 0708 Lisinopril 10 MG DAILY 09/18 1334 AC 09/19 PO 1313 Metoprolol Tartrate 50 MG BID 09/17 1058 AC 09/19 PO 2113 Morphine Sulfate 1 MG Q6P PRN 09/16 1530 AC 09/18 IV 1329 Multivitamins 1 TAB DAILY 09/16 1000 AC 09/19 PO 1311 Omeprazole 40 MG DAILY AC 09/16 0700 AC 09/20 PO 0709 Prednisone 10 MG DAILY 09/29 1000 AC PO 10/02 0959 Prednisone 20 MG DAILY 09/26 1000 AC PO 09/29 0959 Prednisone 30 MG DAILY 09/23 1000 AC PO 09/26 0959 Prednisone 40 MG DAILY 09/20 1000 AC PO 09/23 0959 Prednisone 50 MG DAILY 09/19 1000 AC 09/19 PO 09/20 0959 1313 Roflumilast 500 MCG DAILY 09/15 1715 AC 09/19 PO 1313 Vital Signs & I&O Last 24 Hrs of Vitals and I&O: Vital Signs Date Time Temp Pulse Resp B/P Pulse O2 O2 Flow FiO2 Ox Delivery Rate 09/20 0000 97.4 97 26 140/80 95 Nasal 3.0L Cannula 09/19 2113 93 20 142/80 09/19 1810 94 Nasal 3.0L Cannula 09/19 1600 94 Nasal 3.0L Cannula 09/19 1600 97.1 90 22 120/62 94 Nasal 3.0L Cannula 09/19 1329 95 Nasal 3.0L Cannula 09/19 1313 108 150/80 09/19 1312 108 150/80 Intake & Output 09/20 1600 09/20 0800 09/20 0000 Intake Total 100 200 Output Total Balance 100 200 Intake, Oral 100 200 Impression/Plan Impression/Plan Impression/Plan: CT scan of the chest IMPRESSION: 1. No pulmonary embolism. 2. No significant interval change in appearance of the thoracic aorta, with diffuse atherosclerotic disease as well as multiple small outpouchings/saccular aneurysms. This was described on prior CTA chest. 3. There is multifocal parenchymal opacification in the right lung which is most suspicious for an infectious/inflammatory process. 4. Bilateral emphysema and bronchiectasis. 5. Diffuse coronary artery calcification. 6. Additional findings as described. 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 Now in sinus rhythm with trace elevated troponin, Cardio onboard now has New onset reduced LVEF to 40-45 % * Resolved Acute hypoxic resp failure due to Fluid overload, chronic respinsuff from end stage copd, vicky, ohv, pulm htn, now * ESRD with hyperkalemia, with fluid overload with mild hyperkalemia clinically stable, patient is clinically better now as he is having dialysis * Recent right-sided musculoskeletal chest pain, with underlying atelectasis versus infiltrate * Sig copd with no evidence of sig exacerbation as he has no significant wheezing * End Stage copd with Previous bronchiectasis. 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 However pna cannot be excluded as he was on steroids and this may need to be treated temporarily until he improves * SIg thoracic aneurysm saccular in nature with no worsening of his aneurysm or any dissection by recent ct * Obstructive sleep apnea on CPAP compliant * Chronic steroid use, hence immunosuppressed * Morbid obesity with noncompliance * Previous history of biliary sepsis obstruction no no evidence suggestive of that with previous stent with pneumobilia * No pe CTA negative REC Continue current If he has persistant wheezing will reduce betablocker Cipro with total abx duration of 10 days Prednisone with a slow taper in the next 11 days to off Ipratropium nebulizer therapy 3 times a day Avoid albuterol for now Continue Lidoderm patch Cpap at hs Increase activity Pt prob can be dcd soon Ask cardio if pt can go to the floor
--- NOTE | 2016-09-20 10:10 | PN- CRCU ---
Subjective HPI/Critical Care Issues: Saw patient at bedside this a.m. He was sitting up in chair at bedside. He stated this a.m. he had a moment "panic" when he transitioned from his nocturnal CPAP to his daytime nasal cannula. He stated while he was switching from one device and the other he experienced tightness in his chest and increasing shortness of breath. But, once he resumes nasal cannula he states he feels better than yesterday. No other acute overnight events. No active complaints. Last vitals recorded: 97.4, 97, 26, 140/80, 95% on 3 L O2. Maximum heart rate overnight 108, maximum blood pressure overnight 150/80 Objective Current Medications: Current Medications Sig/Zoe Start time Last Medication Dose Route Stop Time Status Admin Acetaminophen/ 1 TAB DAILY PRN 09/15 1730 AC 09/19 Hydrocodone Bitart PO 1508 Atorvastatin Calcium 5 MG DAILY 09/16 1000 AC 09/19 PO 1311 Bisacodyl 5 MG DAILY 09/17 1513 AC 09/17 PO 1801 Calcium Acetate 2,001 MG WM 09/16 0800 AC 09/19 PO 1658 Ciprofloxacin 500 MG DAILY 09/18 1108 AC 09/19 PO 09/22 1100 1312 Docusate Sodium 100 MG DAILY NEEDED PRN 09/16 2145 AC 09/16 PO 2148 Epoetin Ryan 6,000 UNIT MoWeFr PRN 09/17 0845 AC IV Heparin Sodium 5,000 UNIT Q8 09/15 2200 AC 09/19 (Porcine) SC 0617 Ipratropium [place] 2.5 ML TID 09/15 2200 AC 09/20 INH 0907 Lidocaine 1 PAT 0600 09/16 0600 AC 09/20 EXT 0708 Lisinopril 10 MG DAILY 09/18 1334 AC 09/19 PO 1313 Metoprolol Tartrate 50 MG BID 09/17 1058 AC 09/19 PO 2113 Morphine Sulfate 1 MG Q6P PRN 09/16 1530 AC 09/18 IV 1329 Multivitamins 1 TAB DAILY 09/16 1000 AC 09/19 PO 1311 Omeprazole 40 MG DAILY AC 09/16 0700 AC 09/20 PO 0709 Prednisone 10 MG DAILY 09/29 1000 AC PO 10/02 0959 Prednisone 20 MG DAILY 09/26 1000 AC PO 09/29 0959 Prednisone 30 MG DAILY 09/23 1000 AC PO 09/26 0959 Prednisone 40 MG DAILY 09/20 1000 AC PO 09/23 0959 Prednisone 50 MG DAILY 09/19 1000 AC 09/19 PO 09/20 0959 1313 Roflumilast 500 MCG DAILY 09/15 1715 AC 09/19 PO 1313 Vital Signs & I&O Last 24 Hrs of Vitals and I&O: Vital Signs Date Time Temp Pulse Resp B/P Pulse O2 O2 Flow FiO2 Ox Delivery Rate 09/20 0912 95 Nasal 3.0L Cannula 09/20 0000 97.4 97 26 140/80 95 Nasal 3.0L Cannula 09/19 2113 93 20 142/80 09/19 1810 94 Nasal 3.0L Cannula 09/19 1600 94 Nasal 3.0L Cannula 09/19 1600 97.1 90 22 120/62 94 Nasal 3.0L Cannula 09/19 1329 95 Nasal 3.0L Cannula 09/19 1313 108 150/80 09/19 1312 108 150/80 Intake & Output 09/20 1600 09/20 0800 09/20 0000 Intake Total 100 200 Output Total Balance 100 200 Intake, Oral 100 200 Exam General Appearance: well developed/nourished, no apparent distress, alert, awake , comfortable Head: atraumatic, normal appearance Ears, Nose, Throat: normal ENT inspection Neck: supple Respiratory: crackles, decreased breath sounds Cardiovascular: regular rate/rhythm Abdomen: soft, non-tender Back: normal inspection Extremities: normal inspection, no edema Cranial Nerves: normal hearing, normal speech Results Last 24 Hrs of Lab Results: Laboratory Tests 09/20/16 0400: Anion Gap 14, Estimated GFR 9 L, Glucose 109 H, Calcium 9.2, Phosphorus 4.1, Magnesium 2.1, Total Bilirubin 0.5, AST 18, ALT 27, Albumin 3.7, CBC w Diff NO MAN DIFF REQ, RBC 3.99 L, MCV 92.4, MCH 29.5, RDW 15.7 H, MPV 11.2 H, Gran % 84.7 H, Lymphocytes % 8.6 L, Monocytes % 6.6, Eosinophils % 0, Basophils % 0.1 , Absolute Granulocytes 8.3 H, Absolute Lymphocytes 0.8 L, Absolute Monocytes 0.6, Absolute Eosinophils 0, Absolute Basophils 0, PUBS MCHC 31.9 L 09/19/16 1140: Impression/Plan Impression/Plan Impression/Plan: This is a 71-year-old male with past medical history significant for COPD on 2 L at home, stable thoracic aortic aneurysm, LLUVIA on CPAP, ESRD on hemodialysis, CAD status post stent, hypertension, and pulmonary hypertension. He came to [facility] with a complaint of worsening shortness of breath. Subsequently was admitted to ICU for further management of COPD exacerbation with possible superimposed bronchitis. Additionally, he presented with narrow complex tachycardia. She continues to be monitored for respiratory status, and goes for Saturday hemodialysis. 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 Patient of Dr. Belle. CTA Chest 09/15/15 showed no pulmonary embolism , no change in thoracic aorta saccular aneurysms, did show multifocal parenchymal opacification right lung which is suspicious for inflammatory versus infectious process. It also confirmed bilateral emphysema and bronchiectasis. Today, patient stated he felt better than yesterday. However he still relies on 3 L of O2 by nasal cannula, and his baseline is 2 L at home. His pulmonary exam was much improved this AM. No wheezes or rhonchi appreciated. Patient has been afebrile with normal white count overnight. * Continue 11 day steroid taper * Continue ciprofloxacin, renally dosed, for a total of 10 days of antibiotics of note, patient had previously received ceftaz. * If Patient continues to have respiratory difficulty, we will consider decreasing his dose of beta joshua * Appreciate Pulmonology consult * CPAP at night * Continue increase activity * [facility] Infectious Diseases: Patient is on chronic steroids for COPD, likely immunosuppressed. 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 Patient has previous history of biliary sepsis. No evidence of biliary process currently. Continue to be afebrile with normal white count. * Con't Cipro Cardiovascular:History of CAD s/p stent, hypertension, Saccular aneurysm of descending thoracic aorta. Patient of Dr. Recio. Collateral information obtained from nurse prationer mentions patient has a history of Atrial Fibrillation, however records do no appear to mention this. Echo (06/15/16) demonstrates EF 50-55% with aortic stenosis. Recent echo done during this admission showed worsening of cardiovascular function with EF of 40-45%. Per cardiology patient would benefit from cardiac catheterization given extensive CAD and intermittent chest pain. * Cardizem drip discontinued 09/17/2016 * Metoprolol increased to 50mg PO BID, * Atorvastatin 5mg PO Daily * Lisinopril added 09/18/2016 * Appreciate Cardiology consult Renal: Patient with history of ESRD on HD (M,W,F). Patient of Dr. Shields. Went for hemodialysis yesterday Patient reports he is anuric. * Diaylsis (M,W,F) * PhosLo 2g * Nephrocaps Pain Plan: * Vicodin 1 TAB PO DAILY * Lidocaine Patch Code Status: Full Code Problem List: 1. Aortic aneurysm 2. COPD EXACERBATION
--- NOTE | 2016-09-20 12:26 | PN- Cardiology ---
Subjective Subjective: Clinically stable with no recurrent chest pain. Objective Vital Signs and I&Os Vital Signs Date Time Temp Pulse Resp B/P Pulse O2 O2 Flow FiO2 Ox Delivery Rate 09/20 1004 95 138/78 09/20 1004 95 138/78 09/20 0912 95 Nasal 3.0L Cannula 09/20 0800 98.4 95 24 138/78 98 Nasal 3.0L Cannula 09/20 0000 97.4 97 26 140/80 95 Nasal 3.0L Cannula 09/19 2113 93 20 142/80 09/19 1810 94 Nasal 3.0L Cannula 09/19 1600 94 Nasal 3.0L Cannula 09/19 1600 97.1 90 22 120/62 94 Nasal 3.0L Cannula 09/19 1329 95 Nasal 3.0L Cannula 09/19 1313 108 150/80 09/19 1312 108 150/80 Intake & Output 09/20 1600 09/20 0800 09/20 0000 09/19 1600 09/19 0800 09/19 0000 Intake Total 100 200 500 200 240 Output Total 2000 0 Balance 100 200 -1500 200 240 Intake, Oral 100 200 500 200 240 Output, 2000 Dialysate Output, Urine 0 Patient 187 lb Weight Physical Exam: General Appearance: alert, awake, comfortable Head: atraumatic, normal appearance, active bleeding Ears, Nose, Throat: normal Neck: supple, JVP normal Respiratory: decreased breath sounds, crackles, rhonchi, wheezing Cardiovascular: regular rate/rhythm, 1-2/6 systolic murmur of mild Gastrointestinal: soft, non-tender Extremities: no edema Cranial Nerves: normal hearing, normal speech Current Medications: Current Medications Sig/Zoe Start time Last Medication Dose Route Stop Time Status Admin Acetaminophen/ 1 TAB DAILY PRN 09/15 1730 AC 09/20 Hydrocodone Bitart PO 1037 Atorvastatin Calcium 5 MG DAILY 09/16 1000 AC 09/20 PO 1005 Bisacodyl 5 MG DAILY 09/17 1513 AC 09/20 PO 1001 Calcium Acetate 2,001 MG WM 09/16 0800 AC 09/20 PO 1145 Ciprofloxacin 500 MG DAILY 09/18 1108 AC 09/20 PO 09/27 1100 1005 Docusate Sodium 100 MG DAILY NEEDED PRN 09/16 2145 AC 09/16 PO 2148 Epoetin Ryan 6,000 UNIT MoWeFr PRN 09/17 0845 AC IV Heparin Sodium 5,000 UNIT Q8 09/15 2200 AC 09/19 (Porcine) SC 0617 Ipratropium [place] 2.5 ML TID 09/15 2200 AC 09/20 INH 0907 Lidocaine 1 PAT 0600 09/16 0600 AC 09/20 EXT 0708 Lisinopril 10 MG DAILY 09/18 1334 AC 09/20 PO 1004 Metoprolol Tartrate 50 MG BID 09/17 1058 AC 09/20 PO 1004 Morphine Sulfate 1 MG Q6P PRN 09/16 1530 AC 09/18 IV 1329 Multivitamins 1 TAB DAILY 09/16 1000 AC 09/20 PO 1003 Omeprazole 40 MG DAILY AC 09/16 0700 AC 09/20 PO 0709 Prednisone 10 MG DAILY 09/29 1000 AC PO 10/02 0959 Prednisone 20 MG DAILY 09/26 1000 AC PO 09/29 0959 Prednisone 30 MG DAILY 09/23 1000 AC PO 09/26 0959 Prednisone 40 MG DAILY 09/20 1000 AC 09/20 PO 09/23 0959 1005 Prednisone 50 MG DAILY 09/19 1000 DC 09/19 PO 09/20 0959 1313 Roflumilast 500 MCG DAILY 09/15 1715 AC 09/20 PO 1002 Results Last 48 Hrs of Labs/Mics: Laboratory Tests 09/20/16 1210: Sodium Pending, Potassium Pending, Chloride Pending, Carbon Dioxide Pending, Anion Gap Pending, BUN Pending, Creatinine Pending, Glucose Pending, Calcium Pending, Phosphorus Pending, Magnesium Pending, Total Bilirubin Pending, AST Pending, ALT Pending, Albumin Pending 09/20/16 0400: Anion Gap 14, Estimated GFR 9 L, Glucose 109 H, Calcium 9.2, Phosphorus 4.1, Magnesium 2.1, Total Bilirubin 0.5, AST 18, ALT 27, Albumin 3.7, CBC w Diff NO MAN DIFF REQ, RBC 3.99 L, MCV 92.4, MCH 29.5, RDW 15.7 H, MPV 11.2 H, Gran % 84.7 H, Lymphocytes % 8.6 L, Monocytes % 6.6, Eosinophils % 0, Basophils % 0.1 , Absolute Granulocytes 8.3 H, Absolute Lymphocytes 0.8 L, Absolute Monocytes 0.6, Absolute Eosinophils 0, Absolute Basophils 0, PUBS MCHC 31.9 L 09/19/16 1140: 09/19/16 0820: Anion Gap 14, Estimated GFR 7 L, Glucose 90, Calcium 9.0, Phosphorus 4.8 H, Magnesium 2.3, Total Bilirubin 0.6, AST 24, ALT 37, Albumin 3.9, CBC w Diff NO MAN DIFF REQ, RBC 3.91 L, MCV 90.3, MCH 29.4, RDW 14.9 H, MPV 11.5 H, Gran % 78.2 H, Lymphocytes % 12.5 L, Monocytes % 9.0, Eosinophils % 0, Basophils % 0.3, Absolute Granulocytes 7.0 H, Absolute Lymphocytes 1.1 L, Absolute Monocytes 0.8 H, Absolute Eosinophils 0, Absolute Basophils 0, PUBS MCHC 32.5 L 09/19/16 0500: Sodium Cancelled, Potassium Cancelled, Chloride Cancelled, Carbon Dioxide Cancelled, Anion Gap Cancelled, BUN Cancelled, Creatinine Cancelled, Glucose Cancelled, Calcium Cancelled, Phosphorus Cancelled, Magnesium Cancelled, Total Bilirubin Cancelled, AST Cancelled, ALT Cancelled, Albumin Cancelled Assessment/Plan Assessment/Plan Assessment: 1. CAD, stable 2. COPD, with exacerbation 3. Possible pneumonia 4. End-stage renal disease with volume overload 5. Saccular aneurysm of the descending thoracic aorta 6. Atypical chest pain 7. Narrow complex tachycardia, likely sinus tachycardia, resolved 8. Mild troponin elevation, likely secondary to demand ischemia 9. New left ventricular systolic dysfunction on echocardiogram, uncertain etiology. Rule out ischemic cardiomyopathy. Possibly secondary to tachycardia. Recommendations: -Discussed with Dr Belle. -In view of the patient's recurrent episodes of intermittent chest discomfort; worsening LV function; mild troponin elevation and known CAD (s/p RCA stent in 2006), I would favor cardiac cath to assess current anatomy. - Cardiac cath scheduled for tomorrow at [place] [facility] with Dr Barron. - Please keep the patient NPO after midnight. - Please arrange dialysis for morning tomorrow and cath will be done in the afternoon. - Discussed with the patient and . Continue telemetry? Yes
--- NOTE | 2016-09-20 15:16 | PN- Nephrology ---
Assessment/Plan Assessment: 1. Shortness of breath. Suspect this is due for to his COPD rather than volume overload. 2. ESRD/Chronic kidney disease ,hemodialysis in AM. 3. Anemia 4. DM Suggestion: 1. Maintain a 2 g sodium, 2 g potassium, diet with a 1000 mL fluid restriction per day. 2. Maintain strict I's and O's and daily weights for now 3. Next dialysis will be on tomorrow 4. Dry weight is likely be 85 kg Subjective Subjective: says breathing is so-so. Had a panic attack this am Objective Vital Signs and I&Os Vital Signs Date Time Temp Pulse Resp B/P Pulse O2 O2 Flow FiO2 Ox Delivery Rate 09/20 1004 95 138/78 09/20 1004 95 138/78 09/20 0912 95 Nasal 3.0L Cannula 09/20 0800 98.4 95 24 138/78 98 Nasal 3.0L Cannula 09/20 0000 97.4 97 26 140/80 95 Nasal 3.0L Cannula 09/19 2113 93 20 142/80 09/19 1810 94 Nasal 3.0L Cannula 09/19 1600 94 Nasal 3.0L Cannula 09/19 1600 97.1 90 22 120/62 94 Nasal 3.0L Cannula Intake & Output 09/20 1600 09/20 0400 09/19 1600 09/19 0400 09/18 1600 09/18 0400 Intake Total 450 200 700 240 890 50 Output Total 2000 0 0 0 Balance 450 200 -1300 240 890 50 Intake, IV 10 0 Intake, Oral 450 200 700 240 880 50 Number 2 0 Bowel Movements Output, 2000 Dialysate Output, Urine 0 0 0 Patient 187 lb 190 lb Weight Physical Exam: General Appearance: well developed/nourished, no apparent distress, alert, awake , comfortable, obese Head: atraumatic, normal appearance Ears, Nose, Throat: hearing grossly normal Neck: normal inspection, supple, full range of motion Respiratory: prolonged expiratory phase with wheeze. Sounds tight Cardiovascular: regular rate/rhythm Abdomen: normal bowel sounds, large protuberant abdomen. Bowel sounds throughout. Back: normal inspection, no vertebral tenderness, no CVA tenderness Extremities: normal inspection, no edema Neurologic/Psychiatric: no motor/sensory deficits, awake, alert, oriented x 3, normal mood/affect, o gross neurologic deficits Skin: intact, normal color, no rashes Lymphatic: no cervical or supraclavicular lymphadenopathy Current Medications: Current Medications Sig/Zoe Start time Last Medication Dose Route Stop Time Status Admin Acetaminophen/ 1 TAB DAILY PRN 09/15 1730 AC 09/20 Hydrocodone Bitart PO 1037 Atorvastatin Calcium 5 MG DAILY 09/16 1000 AC 09/20 PO 1005 Bisacodyl 5 MG DAILY 09/17 1513 AC 09/20 PO 1001 Calcium Acetate 2,001 MG WM 09/16 0800 AC 09/20 PO 1145 Ciprofloxacin 500 MG DAILY 09/18 1108 AC 09/20 PO 09/27 1100 1005 Docusate Sodium 100 MG DAILY NEEDED PRN 09/16 2145 AC 09/16 PO 2148 Epoetin Ryan 6,000 UNIT MoWeFr PRN 09/17 0845 AC IV Heparin Sodium 5,000 UNIT Q8 09/15 2200 AC 09/19 (Porcine) SC 0617 Ipratropium [place] 2.5 ML TID 09/15 2200 AC 09/20 INH 1400 Lidocaine 1 PAT 0600 09/16 0600 AC 09/20 EXT 0708 Lisinopril 10 MG DAILY 09/18 1334 AC 09/20 PO 1004 Metoprolol Tartrate 50 MG BID 09/17 1058 AC 09/20 PO 1004 Morphine Sulfate 1 MG Q6P PRN 09/16 1530 AC 09/18 IV 1329 Multivitamins 1 TAB DAILY 09/16 1000 AC 09/20 PO 1003 Omeprazole 40 MG DAILY AC 09/16 0700 AC 09/20 PO 0709 Prednisone 10 MG DAILY 09/29 1000 AC PO 10/02 0959 Prednisone 20 MG DAILY 09/26 1000 AC PO 09/29 0959 Prednisone 30 MG DAILY 09/23 1000 AC PO 09/26 0959 Prednisone 40 MG DAILY 09/20 1000 AC 09/20 PO 09/23 0959 1005 Prednisone 50 MG DAILY 09/19 1000 DC 09/19 PO 09/20 0959 1313 Roflumilast 500 MCG DAILY 09/15 1715 AC 09/20 PO 1002 Results Pertinent Lab Results: Laboratory Tests 09/20 09/20 09/19 1210 0400 1140 Chemistry Sodium (137 - 145 mmol/L) 137 140 Potassium (3.5 - 5.1 mmol/L) 3.8 5.1 Chloride (98 - 107 mmol/L) 100 98 Carbon Dioxide (22 - 30 mmol/L) 27 29 Anion Gap (5 - 16) 11 14 BUN (9 - 20 mg/dL) 53 H 48 H 19 Creatinine (0.7 - 1.2 mg/dL) 6.6 *H 6.2 *H Estimated GFR (>60 ml/min) 8 L 9 L Glucose (65 - 99 mg/dL) 125 H 109 H Calcium (8.4 - 10.2 mg/dL) 8.4 9.2 Phosphorus (2.5 - 4.5 mg/dL) 3.3 4.1 Magnesium (1.6 - 2.3 mg/dL) 2.0 2.1 Total Bilirubin (0.2 - 1.3 mg/dL) 0.4 0.5 AST (17 - 59 U/L) 15 L 18 ALT (21 - 72 U/L) 36 27 Albumin (3.5 - 5.0 g/dL) 3.4 L 3.7 Hematology CBC w Diff NO MAN DIFF REQ WBC (4.8 - 10.8 /CUMM) 9.8 RBC (4.70 - 6.10 /CUMM) 3.99 L Hgb (14.0 - 18.0 G/DL) 11.8 L Hct (42 - 52 %) 36.9 L MCV (80.0 - 94.0 FL) 92.4 MCH (27.0 - 31.0 PG) 29.5 RDW (11.5 - 14.5 %) 15.7 H Plt Count (130 - 400 /CUMM) 129 L MPV (7.4 - 10.4 FL) 11.2 H Gran % (42.2 - 75.2 %) 84.7 H Lymphocytes % (20.5 - 51.1 %) 8.6 L Monocytes % (1.7 - 9.3 %) 6.6 Eosinophils % (0 - 5 %) 0 Basophils % (0.0 - 2.0 %) 0.1 Absolute Granulocytes (1.4 - 6.5 /CUMM) 8.3 H Absolute Lymphocytes (1.2 - 3.4 /CUMM) 0.8 L Absolute Monocytes (0.10 - 0.60 /CUMM) 0.6 Absolute Eosinophils (0.0 - 0.7 /CUMM) 0 Absolute Basophils (0.0 - 0.2 /CUMM) 0 PUBS MCHC (33.0 - 37.0 G/DL) 31.9 L 09/19 09/19 09/18 0820 0500 UNK Chemistry Sodium (137 - 145 mmol/L) 135 L Cancelled Cancelled Potassium (3.5 - 5.1 mmol/L) 5.1 Cancelled Cancelled Chloride (98 - 107 mmol/L) 94 L Cancelled Cancelled Carbon Dioxide (22 - 30 mmol/L) 27 Cancelled Cancelled Anion Gap (5 - 16) 14 Cancelled Cancelled BUN (9 - 20 mg/dL) 70 H Cancelled Cancelled Creatinine (0.7 - 1.2 mg/dL) 8.0 *H Cancelled Cancelled Estimated GFR (>60 ml/min) 7 L Glucose (65 - 99 mg/dL) 90 Cancelled Cancelled Calcium (8.4 - 10.2 mg/dL) 9.0 Cancelled Cancelled Phosphorus (2.5 - 4.5 mg/dL) 4.8 H Cancelled Cancelled Magnesium (1.6 - 2.3 mg/dL) 2.3 Cancelled Cancelled Total Bilirubin (0.2 - 1.3 mg/dL) 0.6 Cancelled Cancelled AST (17 - 59 U/L) 24 Cancelled Cancelled ALT (21 - 72 U/L) 37 Cancelled Cancelled Albumin (3.5 - 5.0 g/dL) 3.9 Cancelled Cancelled Hematology CBC w Diff NO MAN DIFF REQ WBC (4.8 - 10.8 /CUMM) 9.0 RBC (4.70 - 6.10 /CUMM) 3.91 L Hgb (14.0 - 18.0 G/DL) 11.5 L Hct (42 - 52 %) 35.3 L MCV (80.0 - 94.0 FL) 90.3 MCH (27.0 - 31.0 PG) 29.4 RDW (11.5 - 14.5 %) 14.9 H Plt Count (130 - 400 /CUMM) 132 MPV (7.4 - 10.4 FL) 11.5 H Gran % (42.2 - 75.2 %) 78.2 H Lymphocytes % (20.5 - 51.1 %) 12.5 L Monocytes % (1.7 - 9.3 %) 9.0 Eosinophils % (0 - 5 %) 0 Basophils % (0.0 - 2.0 %) 0.3 Absolute Granulocytes (1.4 - 6.5 /CUMM) 7.0 H Absolute Lymphocytes (1.2 - 3.4 /CUMM) 1.1 L Absolute Monocytes (0.10 - 0.60 /CUMM) 0.8 H Absolute Eosinophils (0.0 - 0.7 /CUMM) 0 Absolute Basophils (0.0 - 0.2 /CUMM) 0 PUBS MCHC (33.0 - 37.0 G/DL) 32.5 L 09/18 0530 Chemistry Sodium (137 - 145 mmol/L) 140 Potassium (3.5 - 5.1 mmol/L) 5.3 H Chloride (98 - 107 mmol/L) 98 Carbon Dioxide (22 - 30 mmol/L) 27 Anion Gap (5 - 16) 16 BUN (9 - 20 mg/dL) 43 H Creatinine (0.7 - 1.2 mg/dL) 5.4 *H Estimated GFR (>60 ml/min) 11 L Glucose (65 - 99 mg/dL) 92 Calcium (8.4 - 10.2 mg/dL) 8.7 Phosphorus (2.5 - 4.5 mg/dL) 7.6 H Magnesium (1.6 - 2.3 mg/dL) 2.1 Total Bilirubin (0.2 - 1.3 mg/dL) 0.6 AST (17 - 59 U/L) 35 ALT (21 - 72 U/L) 29 Albumin (3.5 - 5.0 g/dL) 3.7 Hematology CBC w Diff NO MAN DIFF REQ WBC (4.8 - 10.8 /CUMM) 7.1 RBC (4.70 - 6.10 /CUMM) 3.80 L Hgb (14.0 - 18.0 G/DL) 11.2 L Hct (42 - 52 %) 34.5 L MCV (80.0 - 94.0 FL) 90.9 MCH (27.0 - 31.0 PG) 29.5 RDW (11.5 - 14.5 %) 15.3 H Plt Count (130 - 400 /CUMM) 126 L MPV (7.4 - 10.4 FL) 10.8 H Gran % (42.2 - 75.2 %) 84.8 H Lymphocytes % (20.5 - 51.1 %) 6.7 L Monocytes % (1.7 - 9.3 %) 8.4 Eosinophils % (0 - 5 %) 0 Basophils % (0.0 - 2.0 %) 0.1 Absolute Granulocytes (1.4 - 6.5 /CUMM) 6.0 Absolute Lymphocytes (1.2 - 3.4 /CUMM) 0.5 L Absolute Monocytes (0.10 - 0.60 /CUMM) 0.6 Absolute Eosinophils (0.0 - 0.7 /CUMM) 0 Absolute Basophils (0.0 - 0.2 /CUMM) 0 PUBS MCHC (33.0 - 37.0 G/DL) 32.4 L
[2016-09-20 16:00] VITALS: BP 125/60
--- NOTE | 2016-09-20 19:50 | NUR ---
PT IS A+OX3. C/O 5/10 BACK PAIN. VICODIN GIVEN. INSP/EXP WHEEZES TO BUL. NO C/O SOB. +BRUIT +THRILL. SAFETY MAINTAINED. CALL LIGHT IN REACH.
--- NOTE | 2016-09-20 20:20 | NUR ---
report given to OBBBI Jensen. call out to distribution for transfer, left .
[2016-09-20 21:14] VITALS: BP 130/86
--- NOTE | 2016-09-21 07:54 | PN- Housestaff ---
Subjective Follow-up For: 1) Acute Hypoxic Respiratory Failure 2/2 COPD exacerbation vs fluid overload 2) Hyperkalemia, now resolved 3) ESRD on HD 4) Narrow complex regular tachycardia SVT vs ST, now resolved. 5) DM 6) Anemia 7) CAD, stable 8) Atypical chest pain 9) Mild troponin elevation, 2/2 demand ischemia Complaints: no complaints Tele-Events Since Last Visit: SR 73-81 bpm. Short run of SVT <3s at 6:30 AM Subjective: Patient is currently in dialysis. States his breathing is the same as yesterday, but is doing much better than when he came in. He does not complain of any episodes of chest pain overnight and is aware that he is to be transferred for cardiac catheterization today. Review of Systems Constitutional: Reports: see HPI. Objective Last 24 Hrs of Vital Signs/I&O Vital Signs Date Time Temp Pulse Resp B/P Pulse O2 O2 Flow FiO2 Ox Delivery Rate 09/21 0000 CPAP 09/20 2118 80 130/86 09/20 2113 97.5 80 18 130/86 96 Nasal 3.5L Cannula 09/20 1951 95 Nasal 3.0L Cannula 09/20 1600 96 Nasal 3.0L Cannula 09/20 1600 98.3 92 20 125/60 96 Nasal 3.0L Cannula 09/20 1004 95 138/78 09/20 1004 95 138/78 09/20 0912 95 Nasal 3.0L Cannula 09/20 0800 98.4 95 24 138/78 98 Nasal 3.0L Cannula Intake & Output 09/21 0800 09/21 0000 09/20 1600 Intake Total 400 750 Output Total Balance 400 750 Intake, Oral 400 750 Number 1 Bowel Movements Patient 185 lb Weight Physical Exam General Appearance: Alert, Oriented X3, Cooperative, No Acute Distress Cardiovascular: Regular Rate, Normal S1, Normal S2, No Murmurs Lungs: bilateral expiratory wheezing heard. Abdomen: Normal Bowel Sounds, Soft, No Tenderness Neurological: Normal Speech, Normal Tone, Sensation Intact Extremities: No Edema Current Medications: Current Medications Sig/Zoe Start time Last Medication Dose Route Stop Time Status Admin Acetaminophen/ 1 TAB Q8P PRN 09/20 1942 AC 09/20 Hydrocodone Bitart PO 194 Acetaminophen/ 1 TAB DAILY PRN 09/15 1730 DC 09/20 Hydrocodone Bitart PO 1037 Atorvastatin Calcium 5 MG DAILY 09/16 1000 AC 09/20 PO 1005 Bisacodyl 5 MG DAILY 09/17 1513 AC 09/20 PO 1001 Calcium Acetate 2,001 MG WM 09/16 0800 AC 09/20 PO 1728 Ciprofloxacin 500 MG DAILY 09/18 1108 AC 09/21 PO 09/27 1100 0647 Docusate Sodium 100 MG .STK-MED ONE 09/202 DC PO 09/20 2123 Docusate Sodium 100 MG DAILY NEEDED PRN 09/16 2145 AC 09/20 PO 2125 Epoetin Ryan 6,000 UNIT MoWeFr PRN 09/17 0845 AC IV Heparin Sodium 5,000 UNIT Q8 09/15 2200 AC 09/19 (Porcine) SC 0617 Ipratropium [place] 2.5 ML TID 09/15 220 AC 09/20 INH 1949 Lidocaine 1 PAT 0600 09/16 0600 AC 09/21 EXT 0649 Lisinopril 10 MG DAILY 09/18 1334 AC 09/20 PO 1004 Metoprolol Tartrate 50 MG BID 09/17 1058 AC 09/20 PO 2119 Morphine Sulfate 1 MG Q6P PRN 09/16 1530 AC 09/18 IV 1329 Multivitamins 1 TAB DAILY 09/16 1000 AC 09/20 PO 1003 Omeprazole 40 MG DAILY AC 09/16 0700 AC 09/21 PO 0648 Prednisone 10 MG DAILY 09/29 1000 AC PO 10/02 0959 Prednisone 20 MG DAILY 09/26 1000 AC PO 09/29 0959 Prednisone 30 MG DAILY 09/23 1000 AC PO 09/26 0959 Prednisone 40 MG DAILY 09/20 1000 AC 09/20 PO 09/23 0959 1005 Prednisone 50 MG DAILY 09/19 1000 DC 09/19 PO 09/20 0959 1313 Roflumilast 500 MCG DAILY 09/15 1715 AC 09/20 PO 1002 Last 24 Hrs of Lab/Jesus Results Last 24 Hrs of Labs/Mics: Laboratory Tests 09/20/16 1210: Anion Gap 11, Estimated GFR 8 L, Glucose 125 H, Calcium 8.4, Phosphorus 3.3, Magnesium 2.0, Total Bilirubin 0.4, AST 15 L, ALT 36, Albumin 3.4 L Lines/Diet/Fluids Lines: peripheral lines Assessment/Plan Assessment: This is a 71-year-old male with past medical history significant for COPD on 2 L at home, stable thoracic aortic aneurysm, LLUVIA on CPAP, ESRD on hemodialysis, CAD status post stent, hypertension, and pulmonary hypertension. He came to [facility] with a complaint of worsening shortness of breath. Subsequently was admitted to ICU for further management of COPD exacerbation with possible superimposed bronchitis. Additionally, he presented with narrow complex tachycardia. She continues to be monitored for respiratory status, and goes for Saturday hemodialysis. Problem List: 1) Acute Hypoxic Respiratory Failure 2/2 COPD vs fluid overload vs LLUVIA vs OHS currently on 3.0 L O2 , on chronic steroids at home. 2) Rt lower lobe opacity, ? 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 3) Elevated troponins thought to be 2/2 demand ischemia 4) ESRD on HD M,W,F 5) Elevated HR SVT vs ST, now resolved. 6) Atypical chest pain with PMH of CAD s/p stenting in 2006, now going for cardiac catheterization. 7) Thoracic aortic aneurysm, saccular in nature with no worsening seen on recent CT. 8) Morbid obesity with non compliance 9) LLUVIA on nocturnal CPAP 10) Hyperkalemia, now resolved 11) Hypertension Plan: * Patient is currently in hemodialysis. * To be transferred for cardiac catheterization this afternoon to [facility], to be done by Dr. Barron. * Otherwise stable, no change in management. * To be discharged on Ciprofloxacin to complete a 10 day course. Problem List: 1. Acute respiratory failure 2. Acute on chronic renal failure Pain Ratin Pain Location: None. Pain Goal: Pain 4 or less Pain Plan: Per EMR Tomorrow's Labs & Rationales: Patient to be transferred to another facility today. DVT/Prophylaxis: pharmacological Consulting Request: Consulting Specialty: Nephrology
--- NOTE | 2016-09-21 08:11 | Discharge Summary ---
Visit Information Visit Dates Admission Date: 09/15/16 Discharge Date: 09/21/16 Hospital Course Course Attending Physician: LOLA MONTES,EARLINE Stallings Primary Care Physician: SARITA MONTES,CYNDI Barron Consulting Request: 1 Consulting Specialty: Nephrology Consulting Request: 2 Consulting Specialty: Cardiology Hospital Course: This is a 71 years old gentleman with past medical history significant for end- stage COPD on 2 L oxygen at home with recurrent COPD exacerbations, end-stage renal disease on hemodialysis Saturday and Saturday, obesity with obstructive sleep apnea, hypertension, severe pulmonary hypertension who presented with worsening shortness of breath. This was the second admission within one week with previous admission on September 11 for 1 day stay for chest pain. The patient reported that she continued not feeling well post discharge and continued to have chest pressure located on the mid left chest wall that was not radiating not associated with blurring of vision, diaphoresis or dizziness. On presentation patient was very tachycardic with heart rate around 160 with narrow complex regular tachycardia arrhythmia. He was admitted to the intensive care unit and we managed him for the following conditions. Narrow complex tachycardia Patient initial EKG showed normal complex regular tachycardia arrhythmia consistent with SVT versus sinus tachycardia with P waves embedded in the preceding T waves. The patient received 2 doses of IV adenosine initially 6 mg followed by 12 mg with some transient slowing of the heart rate. The patient was started on IV Cardizem with initial bolus 10 mg 1 time and then placed on Cardizem drip at 7.5 mg per hour. Initially the troponin was negative however repeated troponin levels show slight elevation to 0.18 and increased to maximum of 0.20 with left-sided value showing a decreased to 0.16. There were no acute EKG changes to suggest ischemia. Given the sudden onset of shortness of breath and tachycardia we were worried that the patient might be having pulmonary embolism, he had CTA which did not show any evidence of pulmonary embolism. End-stage COPD Patient has end-stage COPD on 2 L of oxygen at home. On this presentation patient denied any excessive production of sputum or excessive coughing. On examination there was no any significant wheezes compared to baseline values. We thought that the presenting phenomena is not a result of COPD exacerbation. She received IV Solu-Medrol and dose and was transitioned to oral prednisone taper. Patient has significant obstructive sleep apnea and uses CPAP at night which we maintained during the course of the stay. End-stage renal disease with hyperkalemia Patient has end-stage renal disease and is on hemodialysis Saturday and Saturday. On presentation he has significant hyperkalemia with potassium of 6.0. Initially the patient was given insulin and dextrose to move potassium to intracellular and calcium gluconate for cardioprotection. There was continuous progressive decrease in potassium level to normal levels. Patient was seen by financial systems director Dr. Aceves and was kept on hemodialysis Saturday and Saturday. Initially due to excessive need to remove fluid received extra sessions of dialysis on top of his routine schedule. She'll discharged with instruction to continue with routine hemodialysis per his schedule. Bronchitis/Pneumonia Initial chest x-ray showed evidence of bronchitis and from the CTA there was evidence of multifocal consolidations. This is a patient who had a healthcare exposure with one-day admission 5 days prior to this index admission. He was started on Ceftazidine and later switched to ciprofloxacin renal dose, patient to have to take a total of 10 days course of antibiotic with ciprofloxacin ending on September 27. Coronary artery disease And has history of coronary artery disease status post stent placement. On this admission he had several episodes of reported chest pain and had been previously admitted and discharged 5 days prior to the index admission with chest pain in which case [place] was ruled out. Patient showed a significant decrease in ejection fraction from EF of 50-55 on June 2016 to EF of 40-45 in September 17, 2016 on this index admission. Given the patient significant decrease in ejection fraction and high risk for coronary artery disease decision was made to transfer the patient for cardiac catheterization. Complications: None Allergies: Coded Allergies: venom-honey bee (bee venom (honey bee)) (Severe, ANAPHYLAXIS 02/13/16) Penicillins (Intermediate, RASH 02/13/16) Significant Procedures: CTA: 1. No pulmonary embolism. 2. No significant interval change in appearance of the thoracic aorta, with diffuse atherosclerotic disease as well as multiple small outpouchings/saccular aneurysms. This was described on prior CTA chest. 3. There is multifocal parenchymal opacification in the right lung which is most suspicious for an infectious/inflammatory process. 4. Bilateral emphysema and bronchiectasis. 5. Diffuse coronary artery calcification. Echocardiogram Normal size left ventricle. Mildly reduced global left ventricular systolic function. Mildly abnormal left ventricular ejection fraction estimated at 40-45%. Pertinent Lab Results: Potassium 6.0 Laboratory Tests 09/20 1210 Chemistry Sodium (137 - 145 mmol/L) 137 Potassium (3.5 - 5.1 mmol/L) 3.8 Chloride (98 - 107 mmol/L) 100 Carbon Dioxide (22 - 30 mmol/L) 27 Anion Gap (5 - 16) 11 BUN (9 - 20 mg/dL) 53 H Creatinine (0.7 - 1.2 mg/dL) 6.6 *H Estimated GFR (>60 ml/min) 8 L Glucose (65 - 99 mg/dL) 125 H Calcium (8.4 - 10.2 mg/dL) 8.4 Phosphorus (2.5 - 4.5 mg/dL) 3.3 Magnesium (1.6 - 2.3 mg/dL) 2.0 Total Bilirubin (0.2 - 1.3 mg/dL) 0.4 AST (17 - 59 U/L) 15 L ALT (21 - 72 U/L) 36 Albumin (3.5 - 5.0 g/dL) 3.4 L Disposition Summary Disposition Principal Diagnosis: Hyperkalemia End-stage COPD bronchitis Elevated troponin End-stage renal disease on hemodialysis Narrow complex tachycardia Additional Diagnosis: Obstructive sleep apnea Coronary artery disease status post stent placement Aortic aneurysm Discharge Disposition: other general hospital Discharge Instructions General Discharge Information Code Status: Full Code Patient's Diet: Renal Dialysis diet Patient's Activity: As tolerated Follow-Up Instructions/Appts: Please call and make a follow-up with her primary care physician within one week after discharge Medications at Discharge Discharge Medications: Stop taking the following medications: Metoprolol Succ XL (Toprol XL) 25 MG TAB ORAL DAILY Qty = 30 Continue taking these medications: Pantoprazole Sodium (Pantoprazole Sodium) 40 MG TABLET.DR 40 Milligram ORAL DAILY Qty = 30 Calcium Acetate (Phoslo) 667 MG CAPSULE 3 Capsule ORAL WITH MEALS Comments: Last Taken:04/10 Time:12PM Nephro-Vitamins (Nephro-Agnie Tablet) 0.8 MG TABLET 1 Tablet ORAL DAILY Rosuvastatin Calcium (Crestor) 5 MG TABLET 5 Milligram ORAL DAILY Qty = 30 Budesonide/Formoterol Fumarate (Symbicort 160-4.5 Mcg Inhaler) 10.2 GM HFA.AER.AD 2 Puff Inhale through mouth TWICE DAILY Qty = 1 Comments: given 09/12/16 @ 1:30 pm Albuterol Sulfate (Albuterol Sulfate) 2.5 MG/3 ML VIAL.NEB 1 Vial Inhale Solution EVERY 4 HOURS NEEDED Comments: Last Taken: 09/20/16 Time: Roflumilast (Daliresp) 500 MCG TABLET 1 Tablet ORAL DAILY Qty = 90 Comments: Last Taken: 09/21/16 Time: 11:40AM Albuterol Sulfate (Proair Hfa) 8.5 GM HFA.AER.AD 2 Puff Inhale through mouth as needed for COPD Comments: NOT GIVEN IN HOSPITAL Ipratropium/Albuterol Sulfate (Combivent Respimat Inhal Lenora) 4 GM MIST.INHAL 1 PUFF Inhale through mouth 4 TIMES A DAY Comments: Last Taken: 09/20/16 Time: 8PM Celecoxib (Celebrex) 100 MG CAPSULE 100 Milligram ORAL DAILY Qty = 10 Comments: NOT GIVEN IN HOSPITAL Lidocaine (Lidoderm) 5 % ADH..PATCH 1 Patch ON SKIN 0600 Qty = 5 Comments: Last Taken: 09/21/16 Time: 7AM Hydrocodone/Acetaminophen (Hydrocodon-Acetaminophen 5-325) 5 MG-325 MG TABLET 1 Tablet ORAL DAILY as needed for BACK PAIN Qty = 5 Comments: Last Taken: 09/20/16 Time: 8PM Start taking the following new medications: Metoprolol Tartrate (Metoprolol Tartrate) 50 MG TABLET 50 Milligram ORAL TWICE DAILY Qty = 30 No Refills Comments: Last Taken: 09/21/16 Time: 11:40AM Ciprofloxacin HCl (Cipro) 500 MG TABLET 500 Milligram ORAL DAILY Qty = 6 No Refills Comments: Last Taken: 09/21/16 Time: 7AM Lisinopril (Lisinopril) 10 MG TABLET 10 Milligram ORAL DAILY Qty = 30 No Refills Comments: Last Taken: 09/21/16 Time: 11:40AM Prednisone (Prednisone) 10 MG TABLET 40 Milligram ORAL DAILY Qty = 30 No Refills Instructions: On Take 09/21-09/22 40 MG 09/23-09/25 30 MG 09/26-09/28 20 MG 09/29-10/01 10 MG 10/02-10/04 5 MG Then Stop Comments: Last Taken: 09/21/16 Time: 11:40AM Copies To: SARITA MONTES,CYNDI MALDONADO MD,W JALEESA
[2016-09-21] MEDS ORDERED: PREDNISONE10 M2 PO (08:53)
[2016-09-21] MEDS ORDERED: METOPROLOL TART50 M1 PO (08:53)
--- NOTE | 2016-09-21 08:58 | Patient Discharge Instructions ---
Discharge Instructions General Discharge Information You were seen/treated for: Hyperkalemia COPD Ventricular tachycardia with chest pain You had these procedures: CTA which was negative for pulmonary embolism Special Instructions: Please call and make a follow-up with her primary care physician 1 week after discharge Acute Coronary Syndrome Inclusion Criteria At DC or during hospital stay patient has or had the following: ACS DIAGNOSIS No Discharge Core Measures Meds if any: Prescribed or Continued at Discharge Meds if any: NOT Prescribed or Continued at Discharge Congestive Heart Failure Inclusion Criteria At DC or during hospital stay patient has or had the following: CHF DIAGNOSIS No Discharge Core Measures Meds if any: Prescribed or Continued at Discharge Meds if any: NOT Prescribed or Continued at Discharge Cerebrovascular accident Inclusion Criteria At DC or during hospital stay patient has or had the following: CVA/TIA Diagnosis No Discharge Core Measures Meds if any: Prescribed or Continued at Discharge Meds if any: NOT Prescribed or Continued at Discharge Venous thromboembolism Inclusion Criteria VTE Diagnosis No VTE Type NONE VTE Confirmed by (Test) NONE Discharge Core Measures - Per Current guidelines, there needs to be overlap - treatment for the first 5 days of Warfarin therapy. - If discharged on Warfarin prior to 5 days of - overlap therapy, the patient will need to be - assessed for post discharge needs including - *Post discharge parental anticoagulation - *Warfarin and/or parental anticoagulation education - *Follow up date to check INR post discharge At least 5 days overlap therapy as Inpatient No Meds if any: Prescribed or Continued at Discharge Note: Overlap Therapy is Warfarin and Anticoagulant Meds if any: NOT Prescribed or Continued at Discharge
[2016-09-21] MEDS ORDERED: LISINOPRIL10 M1 PO (09:18)
[2016-09-21] MEDS ORDERED: CIPRO500 M1 PO (09:18)
--- NOTE | 2016-09-21 09:23 | PN- Pulmonary ---
Subjective HPI/Critical Care Issues: Doing much better Undergoing dialysis Fatigue Being transferred to [facility] for a cardiac catheterization No chest pain chest discomfort No nausea vomiting diarrhea Objective Current Medications: Current Medications Sig/Zoe Start time Last Medication Dose Route Stop Time Status Admin Acetaminophen/ 1 TAB Q8P PRN 09/20 1943 AC 09/20 Hydrocodone Bitart PO 1947 Acetaminophen/ 1 TAB DAILY PRN 09/15 1730 DC 09/20 Hydrocodone Bitart PO 1037 Atorvastatin Calcium 5 MG DAILY 09/16 1000 AC 09/20 PO 1005 Bisacodyl 5 MG DAILY 09/17 1513 AC 09/20 PO 1001 Calcium Acetate 2,001 MG WM 09/16 0800 AC 09/20 PO 1728 Ciprofloxacin 500 MG DAILY 09/18 1108 AC 09/21 PO 09/27 1100 0647 Docusate Sodium 100 MG .STK-MED ONE 09/202 DC PO 09/20 212 Docusate Sodium 100 MG DAILY NEEDED PRN 09/16 2145 AC 09/20 PO 2125 Epoetin [place] 6,000 UNIT MoWeFr PRN 09/17 0845 AC IV Heparin Sodium 5,000 UNIT Q8 09/15 2200 AC 09/19 (Porcine) SC 0617 Ipratropium [place] 2.5 ML TID 09/15 2200 AC 09/20 INH 1949 Lidocaine 1 PAT 0600 09/16 0600 AC 09/21 EXT 0649 Lisinopril 10 MG DAILY 09/18 1334 AC 09/20 PO 1004 Metoprolol Tartrate 50 MG BID 09/17 1058 AC 09/20 PO 2119 Morphine Sulfate 1 MG Q6P PRN 09/16 1530 AC 09/18 IV 1329 Multivitamins 1 TAB DAILY 09/16 1000 AC 09/20 PO 1003 Omeprazole 40 MG DAILY AC 09/16 0700 AC 09/21 PO 0648 Prednisone 10 MG DAILY 09/29 1000 AC PO 10/02 0959 Prednisone 20 MG DAILY 09/26 1000 AC PO 09/29 0959 Prednisone 30 MG DAILY 09/23 1000 AC PO 09/26 0959 Prednisone 40 MG DAILY 09/20 1000 AC 09/20 PO 09/23 0959 1005 Prednisone 50 MG DAILY 09/19 1000 DC 09/19 PO 09/20 0959 1313 Roflumilast 500 MCG DAILY 09/15 1715 AC 01/19 PO 1002 Vital Signs & I&O Last 24 Hrs of Vitals and I&O: Vital Signs Date Time Temp Pulse Resp B/P Pulse O2 O2 Flow FiO2 Ox Delivery Rate 09/21 0800 Nasal 3.0L Cannula 09/21 0000 CPAP 09/20 2118 80 130/86 09/20 2113 97.5 80 18 130/86 96 Nasal 3.5L Cannula 09/20 1951 95 Nasal 3.0L Cannula 09/20 1600 96 Nasal 3.0L Cannula 09/20 1600 98.3 92 20 125/60 96 Nasal 3.0L Cannula 09/20 1004 95 138/78 09/20 1004 95 138/78 Intake & Output 09/21 1600 09/21 0800 09/21 0000 Intake Total 800 Output Total Balance 800 Intake, Oral 800 Number 1 Bowel Movements Patient 185 lb Weight Laboratory Tests 09/21 09/20 09/20 09/19 0738 1210 0400 1140 Chemistry Sodium (137 - 145 mmol/L) Pending 137 140 Potassium (3.5 - 5.1 mmol/L) Pending 3.8 5.1 Chloride (98 - 107 mmol/L) Pending 100 98 Carbon Dioxide (22 - 30 mmol/L) Pending 27 29 Anion Gap (5 - 16) Pending 11 14 BUN (9 - 20 mg/dL) Pending 53 H 48 H 19 Creatinine (0.7 - 1.2 mg/dL) Pending 6.6 *H 6.2 *H Estimated GFR (>60 ml/min) 8 L 9 L BUN/Creatinine Ratio Pending Glucose (65 - 99 mg/dL) Pending 125 H 109 H Calcium (8.4 - 10.2 mg/dL) Pending 8.4 9.2 Phosphorus (2.5 - 4.5 mg/dL) 3.3 4.1 Magnesium (1.6 - 2.3 mg/dL) 2.0 2.1 Total Bilirubin (0.2 - 1.3 mg/dL) 0.4 0.5 AST (17 - 59 U/L) 15 L 18 ALT (21 - 72 U/L) 36 27 Albumin (3.5 - 5.0 g/dL) 3.4 L 3.7 Hematology CBC w Diff NO MAN DIFF REQ WBC (4.8 - 10.8 /CUMM) 9.8 RBC (4.70 - 6.10 /CUMM) 3.99 L Hgb (14.0 - 18.0 G/DL) 11.8 L Hct (42 - 52 %) 36.9 L MCV (80.0 - 94.0 FL) 92.4 MCH (27.0 - 31.0 PG) 29.5 RDW (11.5 - 14.5 %) 15.7 H Plt Count (130 - 400 /CUMM) 129 L MPV (7.4 - 10.4 FL) 11.2 H Gran % (42.2 - 75.2 %) 84.7 H Lymphocytes % (20.5 - 51.1 %) 8.6 L Monocytes % (1.7 - 9.3 %) 6.6 Eosinophils % (0 - 5 %) 0 Basophils % (0.0 - 2.0 %) 0.1 Absolute Granulocytes (1.4 - 6.5 /CUMM) 8.3 H Absolute Lymphocytes (1.2 - 3.4 /CUMM) 0.8 L Absolute Monocytes (0.10 - 0.60 /CUMM) 0.6 Absolute Eosinophils (0.0 - 0.7 /CUMM) 0 Absolute Basophils (0.0 - 0.2 /CUMM) 0 PUBS MCHC (33.0 - 37.0 G/DL) 31.9 L Impression/Plan Impression/Plan Impression/Plan: CT scan of the chest IMPRESSION: 1. No pulmonary embolism. 2. No significant interval change in appearance of the thoracic aorta, with diffuse atherosclerotic disease as well as multiple small outpouchings/saccular aneurysms. This was described on prior CTA chest. 3. There is multifocal parenchymal opacification in the right lung which is most suspicious for an infectious/inflammatory process. 4. Bilateral emphysema and bronchiectasis. 5. Diffuse coronary artery calcification. 6. Additional findings as described. 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 He did have trace elevated troponin, Cardio onboard now has New onset reduced LVEF to 40-45 %. As he has new changes in his echocardiogram patient will be transferred to [facility] for a cardiac catheterization. * Resolved Acute hypoxic resp failure due to Fluid overload, chronic respinsuff from end stage copd, vicky, ohv, pulm htn, now * ESRD with hyperkalemia, with fluid overload with mild hyperkalemia clinically stable, patient is clinically better now as he is having dialysis * Recent right-sided musculoskeletal chest pain, with underlying atelectasis versus infiltrate * Sig copd with no evidence of sig exacerbation as he has no significant wheezing * End Stage copd with Previous bronchiectasis. 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 He may have had a right lower lobe pneumonia for which she is being actively treated * SIg thoracic aneurysm saccular in nature with no worsening of his aneurysm or any dissection by recent ct * Obstructive sleep apnea on CPAP compliant * Chronic steroid use, hence immunosuppressed * Morbid obesity with noncompliance * Previous history of biliary sepsis obstruction no no evidence suggestive of that with previous stent with pneumobilia * No pe CTA negative REC Discharged to [facility] Continue current Cipro with total abx duration of 10 days, discontinue antibiotics on September 24 Prednisone with a slow taper in the next 10 days to off Ipratropium nebulizer therapy 3 times a day Avoid albuterol for now Continue Lidoderm patch Cpap at Increase activity
[2016-09-21 09:26] LABS: ABSOLUTE BASOPHIL COUNT 0 /CUMM (0.0-0.2); ABSOLUTE EOSINOPHIL COUNT 0 /CUMM (0.0-0.7); ABSOLUTE GRANULOCYTE CT 12.8 /CUMM (1.4-6.5); ABSOLUTE LYMPH COUNT 1.3 /CUMM (1.2-3.4); ABSOLUTE MONOCYTE COUNT 0.8 /CUMM (0.10-0.60); BASOPHIL % 0 % (0.0-2.0); EOSINOPHIL % 0 % (0-5); GRANULOCYTE % 85.8 % (42.2-75.2); HEMATOCRIT 35.1 % (42-52); MEAN CORPUSCULAR HGB 29.5 PG (27.0-31.0); MEAN CORPUSCULAR HGB CONC 32.4 G/DL (33.0-37.0); MEAN CORPUSCULAR VOLUME 90.9 FL (80.0-94.0); MEAN PLATELET VOLUME 11.2 FL (7.4-10.4); PLATELET COUNT 121 /CUMM (130-400); RBC DISTRIBUTION WIDTH 15.1 % (11.5-14.5); RED BLOOD CELL CT 3.87 /CUMM (4.70-6.10)
[2016-09-21 09:31] LABS: WHITE BLOOD CELL COUNT 14.9 /CUMM (4.8-10.8)
--- NOTE | 2016-09-21 10:43 | PN- Nephrology ---
Assessment/Plan Assessment: 1. Shortness of breath. Suspect this is due for to his COPD rather than volume overload. 2. ESRD/Chronic kidney disease ,hemodialysis in AM. 3. Chest pain -because of his elevated troponins in changing systolic function he is being transferred to [facility] for cardiac catheterization this afternoon. 4. Anemia 5. DM Suggestion: 1. Maintain a 2 g sodium, 2 g potassium, diet with a 1000 mL fluid restriction per day. 2. Maintain strict I's and O's and daily weights for now 3. Next dialysis will be on Saturday. He may require it again tomorrow after the cardiac cath. That decision will need to be made at [facility]. 4. Dry weight is likely be 83 kg Subjective Subjective: Patient seen with hemodialysis in progress. Still with shortness of breath apparently with episodes of chest pain. Objective Vital Signs and I&Os Vital Signs Date Time Temp Pulse Resp B/P Pulse O2 O2 Flow FiO2 Ox Delivery Rate 09/21 1139 80 130/86 09/21 1139 80 130/86 09/21 0800 Nasal 3.0L Cannula 09/21 0000 CPAP 09/20 2118 80 130/86 09/20 2113 97.5 80 18 130/86 96 Nasal 3.5L Cannula 09/20 1951 95 Nasal 3.0L Cannula 09/20 1600 96 Nasal 3.0L Cannula 09/20 1600 98.3 92 20 125/60 96 Nasal 3.0L Cannula Intake & Output 09/21 1600 09/21 0400 09/20 1600 09/20 0400 09/19 1600 09/19 0400 Intake Total 400 850 200 700 240 Output Total 2000 0 Balance 400 850 200 -1300 240 Intake, Oral 400 850 200 700 240 Number 1 Bowel Movements Output, 2000 Dialysate Output, Urine 0 Patient 180 lb 187 lb Weight Physical Exam: General Appearance: well developed/nourished, no apparent distress, alert, awake , comfortable, obese Head: atraumatic, normal appearance Ears, Nose, Throat: hearing grossly normal Neck: normal inspection, supple, full range of motion Respiratory: prolonged expiratory phase with wheeze. Sounds tight Cardiovascular: regular rate/rhythm Abdomen: normal bowel sounds, large protuberant abdomen. Bowel sounds throughout. Back: normal inspection, no vertebral tenderness, no CVA tenderness Extremities: normal inspection, no edema Neurologic/Psychiatric: no motor/sensory deficits, awake, alert, oriented x 3, normal mood/affect, no gross neurologic deficits Skin: intact, normal color, no rashes Lymphatic: no cervical or supraclavicular lymphadenopathy Current Medications: Current Medications Sig/Zoe Start time Last Medication Dose Route Stop Time Status Admin Acetaminophen/ 1 TAB Q8P PRN 09/20 1943 AC 09/20 Hydrocodone Bitart PO 1947 Acetaminophen/ 1 TAB DAILY PRN 09/15 1730 DC 09/20 Hydrocodone Bitart PO 1037 Atorvastatin Calcium 5 MG DAILY 09/16 1000 AC 09/20 PO 1005 Bisacodyl 5 MG DAILY 09/17 1513 AC 09/20 PO 1001 Calcium Acetate 2,001 MG WM 09/16 0800 AC 09/20 PO 1728 Ciprofloxacin 500 MG DAILY 09/18 1108 AC 09/21 PO 09/27 1100 0647 Docusate Sodium 100 MG .STK-MED ONE 09/202 DC PO 09/20 212 Docusate Sodium 100 MG DAILY NEEDED PRN 09/16 2145 AC 09/20 PO 2125 Epoetin Ryan 6,000 UNIT MoWeFr PRN 09/17 0845 AC IV Heparin Sodium 5,000 UNIT Q8 09/15 2200 AC 09/19 (Porcine) SC 0617 Ipratropium [place] 2.5 ML TID 09/15 2200 AC 09/20 INH 1949 Lidocaine 1 PAT 0600 09/16 0600 AC 09/21 EXT 0649 Lisinopril 10 MG DAILY 09/18 1334 AC 09/20 PO 1004 Metoprolol Tartrate 50 MG BID 09/17 1058 AC 09/20 PO 2119 Morphine Sulfate 1 MG Q6P PRN 09/16 1530 AC 09/18 IV 1329 Multivitamins 1 TAB DAILY 09/16 1000 AC 09/20 PO 1003 Omeprazole 40 MG DAILY AC 09/16 0700 AC 09/21 PO 0648 Prednisone 10 MG DAILY 09/29 1000 AC PO 10/02 0959 Prednisone 20 MG DAILY 09/26 1000 AC PO 09/29 0959 Prednisone 30 MG DAILY 09/23 1000 AC PO 09/26 0959 Prednisone 40 MG DAILY 09/20 1000 AC 09/20 PO 09/23 0959 1005 Roflumilast 500 MCG DAILY 09/15 1715 AC 09/20 PO 1002 Results Pertinent Lab Results: Laboratory Tests 09/21 09/21 09/20 0742 0738 1210 Chemistry Sodium (137 - 145 mmol/L) 134 L 137 Potassium (3.5 - 5.1 mmol/L) 5.4 H 3.8 Chloride (98 - 107 mmol/L) 95 L 100 Carbon Dioxide (22 - 30 mmol/L) 25 27 Anion Gap (5 - 16) 13 11 BUN (9 - 20 mg/dL) 87 H 53 H Creatinine (0.7 - 1.2 mg/dL) 8.6 *H 6.6 *H Estimated GFR (>60 ml/min) 6 L 8 L BUN/Creatinine Ratio (7 - 25 %) 10.1 Glucose (65 - 99 mg/dL) 90 125 H Calcium (8.4 - 10.2 mg/dL) 9.3 8.4 Phosphorus (2.5 - 4.5 mg/dL) 3.3 Magnesium (1.6 - 2.3 mg/dL) 2.0 Total Bilirubin (0.2 - 1.3 mg/dL) 0.4 AST (17 - 59 U/L) 15 L ALT (21 - 72 U/L) 36 Albumin (3.5 - 5.0 g/dL) 3.4 L Hematology CBC w Diff MAN DIFF ORDERED WBC (4.8 - 10.8 /CUMM) 14.9 H RBC (4.70 - 6.10 /CUMM) 3.87 L Hgb (14.0 - 18.0 G/DL) 11.4 L Hct (42 - 52 %) 35.1 L MCV (80.0 - 94.0 FL) 90.9 MCH (27.0 - 31.0 PG) 29.5 RDW (11.5 - 14.5 %) 15.1 H Plt Count (130 - 400 /CUMM) 121 L MPV (7.4 - 10.4 FL) 11.2 H Gran % (42.2 - 75.2 %) 85.8 H Lymphocytes % (20.5 - 51.1 %) 8.7 L Monocytes % (1.7 - 9.3 %) 5.5 Eosinophils % (0 - 5 %) 0 Basophils % (0.0 - 2.0 %) 0 L Absolute Granulocytes (1.4 - 6.5 /CUMM) 12.8 H Segmented Neutrophils (42.2 - 75.2 %) 81 H Absolute Lymphocytes (1.2 - 3.4 /CUMM) 1.3 Lymphocytes (20.5 - 51.1 %) 12 L Monocytes (1.7 - 9.3 %) 5 Absolute Monocytes (0.10 - 0.60 /CUMM) 0.8 H Absolute Eosinophils (0.0 - 0.7 /CUMM) 0 Absolute Basophils (0.0 - 0.2 /CUMM) 0 Metamyelocytes (0.0 - 1.0 %) 2 H Platelet Estimate (ADEQUATE) VERIFIED BY SMEAR Anisocytosis 1+ PUBS MCHC (33.0 - 37.0 G/DL) 32.4 L 09/20 09/19 0400 1140 Chemistry Sodium (137 - 145 mmol/L) 140 Potassium (3.5 - 5.1 mmol/L) 5.1 Chloride (98 - 107 mmol/L) 98 Carbon Dioxide (22 - 30 mmol/L) 29 Anion Gap (5 - 16) 14 BUN (9 - 20 mg/dL) 48 H 19 Creatinine (0.7 - 1.2 mg/dL) 6.2 *H Estimated GFR (>60 ml/min) 9 L Glucose (65 - 99 mg/dL) 109 H Calcium (8.4 - 10.2 mg/dL) 9.2 Phosphorus (2.5 - 4.5 mg/dL) 4.1 Magnesium (1.6 - 2.3 mg/dL) 2.1 Total Bilirubin (0.2 - 1.3 mg/dL) 0.5 AST (17 - 59 U/L) 18 ALT (21 - 72 U/L) 27 Albumin (3.5 - 5.0 g/dL) 3.7 Hematology CBC w Diff NO MAN DIFF REQ WBC (4.8 - 10.8 /CUMM) 9.8 RBC (4.70 - 6.10 /CUMM) 3.99 L Hgb (14.0 - 18.0 G/DL) 11.8 L Hct (42 - 52 %) 36.9 L MCV (80.0 - 94.0 FL) 92.4 MCH (27.0 - 31.0 PG) 29.5 RDW (11.5 - 14.5 %) 15.7 H Plt Count (130 - 400 /CUMM) 129 L MPV (7.4 - 10.4 FL) 11.2 H Gran % (42.2 - 75.2 %) 84.7 H Lymphocytes % (20.5 - 51.1 %) 8.6 L Monocytes % (1.7 - 9.3 %) 6.6 Eosinophils % (0 - 5 %) 0 Basophils % (0.0 - 2.0 %) 0.1 Absolute Granulocytes (1.4 - 6.5 /CUMM) 8.3 H Absolute Lymphocytes (1.2 - 3.4 /CUMM) 0.8 L Absolute Monocytes (0.10 - 0.60 /CUMM) 0.6 Absolute Eosinophils (0.0 - 0.7 /CUMM) 0 Absolute Basophils (0.0 - 0.2 /CUMM) 0 PUBS MCHC (33.0 - 37.0 G/DL) 31.9 L 09/19 09/19 0820 0500 Chemistry Sodium (137 - 145 mmol/L) 135 L Cancelled Potassium (3.5 - 5.1 mmol/L) 5.1 Cancelled Chloride (98 - 107 mmol/L) 94 L Cancelled Carbon Dioxide (22 - 30 mmol/L) 27 Cancelled Anion Gap (5 - 16) 14 Cancelled BUN (9 - 20 mg/dL) 70 H Cancelled Creatinine (0.7 - 1.2 mg/dL) 8.0 *H Cancelled Estimated GFR (>60 ml/min) 7 L Glucose (65 - 99 mg/dL) 90 Cancelled Calcium (8.4 - 10.2 mg/dL) 9.0 Cancelled Phosphorus (2.5 - 4.5 mg/dL) 4.8 H Cancelled Magnesium (1.6 - 2.3 mg/dL) 2.3 Cancelled Total Bilirubin (0.2 - 1.3 mg/dL) 0.6 Cancelled AST (17 - 59 U/L) 24 Cancelled ALT (21 - 72 U/L) 37 Cancelled Albumin (3.5 - 5.0 g/dL) 3.9 Cancelled Hematology CBC w Diff NO MAN DIFF REQ WBC (4.8 - 10.8 /CUMM) 9.0 RBC (4.70 - 6.10 /CUMM) 3.91 L Hgb (14.0 - 18.0 G/DL) 11.5 L Hct (42 - 52 %) 35.3 L MCV (80.0 - 94.0 FL) 90.3 MCH (27.0 - 31.0 PG) 29.4 RDW (11.5 - 14.5 %) 14.9 H Plt Count (130 - 400 /CUMM) 132 MPV (7.4 - 10.4 FL) 11.5 H Gran % (42.2 - 75.2 %) 78.2 H Lymphocytes % (20.5 - 51.1 %) 12.5 L Monocytes % (1.7 - 9.3 %) 9.0 Eosinophils % (0 - 5 %) 0 Basophils % (0.0 - 2.0 %) 0.3 Absolute Granulocytes (1.4 - 6.5 /CUMM) 7.0 H Absolute Lymphocytes (1.2 - 3.4 /CUMM) 1.1 L Absolute Monocytes (0.10 - 0.60 /CUMM) 0.8 H Absolute Eosinophils (0.0 - 0.7 /CUMM) 0 Absolute Basophils (0.0 - 0.2 /CUMM) 0 PUBS MCHC (33.0 - 37.0 G/DL) 32.5 L
[2016-09-21 11:39] VITALS: BP 130/86
--- NOTE | 2016-09-21 12:52 | PN- Cardiology ---
Subjective Subjective: The patient appears to be doing well. Dialysis this morning. Pending cardiac catheterization later today. Objective Vital Signs and I&Os Vital Signs Date Time Temp Pulse Resp B/P Pulse O2 O2 Flow FiO2 Ox Delivery Rate 09/21 1139 80 130/86 09/21 1139 80 130/86 09/21 0800 Nasal 3.0L Cannula 09/21 0000 CPAP 09/20 2119 80 130/86 09/20 2114 97.5 80 18 130/86 96 Nasal 3.5L Cannula 09/20 1951 95 Nasal 3.0L Cannula 09/20 1600 96 Nasal 3.0L Cannula 09/20 1599 98.3 92 20 125/60 96 Nasal 3.0L Cannula Intake & Output 09/21 1600 09/21 0800 09/21 0000 09/20 1600 09/20 0800 09/20 0000 Intake Total 400 750 100 200 Output Total Balance 400 750 100 200 Intake, Oral 400 750 100 200 Number 1 Bowel Movements Patient 180 lb 185 lb Weight Current Medications: Current Medications Sig/Zoe Start time Last Medication Dose Route Stop Time Status Admin Acetaminophen/ 1 TAB Q8P PRN 09/20 1943 AC 09/20 Hydrocodone Bitart PO 1947 Acetaminophen/ 1 TAB DAILY PRN 09/15 1730 DC 09/20 Hydrocodone Bitart PO 1037 Atorvastatin Calcium 5 MG DAILY 09/16 1000 AC 09/21 PO 1139 Bisacodyl 5 MG DAILY 09/17 1513 AC 09/21 PO 1139 Calcium Acetate 2,001 MG WM 09/16 0800 AC 09/20 PO 1728 Ciprofloxacin 500 MG DAILY 09/18 1108 AC 09/21 PO 09/27 1100 0647 Docusate Sodium 100 MG .STK-MED ONE 09/20 2121 DC PO 09/20 2122 Docusate Sodium 100 MG DAILY NEEDED PRN 09/16 2145 AC 09/20 PO 2125 Epoetin [place] 6,000 UNIT MoWeFr PRN 09/17 0845 AC IV Heparin Sodium 5,000 UNIT Q8 09/15 2199 AC 09/19 (Porcine) SC 0617 Ipratropium [place] 2.5 ML TID 09/15 2199 AC 09/20 INH 1949 Lidocaine 1 PAT 0600 09/16 0600 AC 09/21 EXT 0649 Lisinopril 10 MG DAILY 09/18 1334 AC 09/21 PO 1139 Metoprolol Tartrate 50 MG BID 09/17 1058 AC 09/21 PO 1139 Morphine Sulfate 1 MG Q6P PRN 09/16 1530 AC 09/18 IV 1329 Multivitamins 1 TAB DAILY 09/16 1000 AC 09/21 PO 1139 Omeprazole 40 MG DAILY AC 09/16 0700 AC 09/21 PO 0648 Prednisone 10 MG DAILY 09/29 1000 AC PO 10/02 0959 Prednisone 20 MG DAILY 09/26 1000 AC PO 09/29 0959 Prednisone 30 MG DAILY 09/23 1000 AC PO 09/26 0959 Prednisone 40 MG DAILY 09/20 1000 AC 09/21 PO 09/23 0959 1139 Roflumilast 500 MCG DAILY 09/15 1715 AC 09/21 PO 1138 Results Last 48 Hrs of Labs/Mics: Laboratory Tests 09/21/16 0742: CBC w Diff MAN DIFF ORDERED, RBC 3.87 L, MCV 90.9, MCH 29.5, RDW 15.1 H, MPV 11.2 H, Gran % 85.8 H, Lymphocytes % 8.7 L, Monocytes % 5.5, Eosinophils % 0, Basophils % 0 L, Absolute Granulocytes 12.8 H, Segmented Neutrophils 81 H, Absolute Lymphocytes 1.3, Lymphocytes 12 L, Monocytes 5, Absolute Monocytes 0.8 H, Absolute Eosinophils 0, Absolute Basophils 0, Metamyelocytes 2 H, Platelet Estimate VERIFIED BY SMEAR, Anisocytosis 1+, PUBS MCHC 32.4 L 09/21/16 0738: Anion Gap 13, Estimated GFR 6 L, BUN/Creatinine Ratio 10.1, Glucose 90, Calcium 9.3 09/20/16 1210: Anion Gap 11, Estimated GFR 8 L, Glucose 125 H, Calcium 8.4, Phosphorus 3.3, Magnesium 2.0, Total Bilirubin 0.4, AST 15 L, ALT 36, Albumin 3.4 L 09/20/16 0400: Anion Gap 14, Estimated GFR 9 L, Glucose 109 H, Calcium 9.2, Phosphorus 4.1, Magnesium 2.1, Total Bilirubin 0.5, AST 18, ALT 27, Albumin 3.7, CBC w Diff NO MAN DIFF REQ, RBC 3.99 L, MCV 92.4, MCH 29.5, RDW 15.7 H, MPV 11.2 H, Gran % 84.7 H, Lymphocytes % 8.6 L, Monocytes % 6.6, Eosinophils % 0, Basophils % 0.1 , Absolute Granulocytes 8.3 H, Absolute Lymphocytes 0.8 L, Absolute Monocytes 0.6, Absolute Eosinophils 0, Absolute Basophils 0, PUBS MCHC 31.9 L Assessment/Plan Assessment/Plan Assessment: 1. CAD, stable 2. COPD, with exacerbation 3. Possible pneumonia 4. End-stage renal disease with volume overload 5. Saccular aneurysm of the descending thoracic aorta 6. Atypical chest pain 7. Narrow complex tachycardia, likely sinus tachycardia, resolved 8. Mild troponin elevation, likely secondary to demand ischemia 9. New left ventricular systolic dysfunction on echocardiogram, uncertain etiology. Rule out ischemic cardiomyopathy. Possibly secondary to tachycardia. Recommendations: -Discussed with Dr Belle. -In view of the patient's recurrent episodes of intermittent chest discomfort; worsening LV function; mild troponin elevation and known CAD (s/p RCA stent in 2006), I would favor cardiac cath to assess current anatomy. - Cardiac cath scheduled for today at [facility] with Dr Barron. - Please keep the patient NPO . -I discussed the situation in detail with the patient's family, the patient, and the patient's . The situation is also been discussed in detail with Dr. Belle and within the nephrology service. -Further plans after the results of the cardiac catheterization. Continue telemetry? No
== END 2016-09-21 13:11 | disposition short-term general hospital (02) | DRG 308 ==
LOC: ENRESERVDT → ENRESERVTM → ERH 13:34 → CRI 15:57 → ERH 15:57 → ERHI 15:57 → EDPENDDIS 15:57 → ENPENDDIS 15:57 → EDBEDREQ 16:48 → CRI 19:46 → 1NO 09-20 20:35
PROVIDERS: Emergency Medicine; Internal Medicine; Internal Medicine Interventional Cardiology; Internal Medicine Nephrology; Student in an Organized Health Care Education/Training Program; ADMIT Hospitalist
PROC: 5A1D60Z (ICD-10-PCS; principal; 2016-09-16)
DX: I47.1 Supraventricular tachycardia (principal); N18.6 End stage renal disease; J96.21 Acute and chronic respiratory failure with hypoxia; I12.0 Hypertensive chronic kidney disease with stage 5 chronic kidney disease or end stage renal disease; I27.2 Other secondary pulmonary hypertension; I24.8 Other forms of acute ischemic heart disease; J44.1 Chronic obstructive pulmonary disease with (acute) exacerbation; Z99.81 Dependence on supplemental oxygen; Z99.2 Dependence on renal dialysis; E66.9 Obesity, unspecified; Z68.32 Body mass index [BMI] 32.0-32.9, adult; I25.10 Atherosclerotic heart disease of native coronary artery without angina pectoris; G47.33 Obstructive sleep apnea (adult) (pediatric); I71.9 Aortic aneurysm of unspecified site, without rupture
CPT/HCPCS: 1NSP; CCU; 36415; 82436; 87040; 87070; 87086; 93005; 93010; 93306; 96365; 96366; 96375; 96376; 99291; J0153; J0713; J0885; J1644; J1815; J2920; J2930; J7040; J7512

== ENCOUNTER 2016-11-15 18:08 | Emergency (ER) | payer OTHER ==
[~2016-11-15 18:08] MED LIST changes: +CIPRO500 M1 PO; +LISINOPRIL10 M1 PO; +METOPROLOL TART50 M1 PO
--- NOTE | 2016-11-15 19:00 | ED NEURO DEFICIT/STROKE ---
History of Present Illness General Chief Complaint: General Adult Stated Complaint: SENT BY DR JADA PATEL BEHIND EYE Source: patient, family, old records Exam Limitations: no limitations Vital Signs & Intake/Output Vital Signs & Intake/Output Vital Signs Date Time Temp Pulse Resp B/P Pulse O2 O2 Flow FiO2 Ox Delivery Rate 11/15 2104 86 14 148/72 96 Nasal 1.0L Cannula 11/15 1837 98.2 78 22 170/72 96 Nasal 2.0L Cannula Allergies Coded Allergies: venom-honey bee (bee venom (honey bee)) (Severe, ANAPHYLAXIS 02/13/16) Penicillins (Intermediate, RASH 02/13/16) Reconcile Medications Albuterol Sulfate 2.5 MG/3 ML VIAL.NEB 1 Vial INH/ROSALINDA Q4P COPD (Reported) Albuterol Sulfate (Proair Hfa) 8.5 GM HFA.AER.AD 2 PUF INH PRN COPD (Reported ) Aspirin (Lo-Dose Aspirin EC) 81 MG TABLET.DR 1 TAB PO DAILY HEART/BLOOD ( Reported) Atorvastatin Calcium 40 MG TABLET 1 TAB PO DAILY CHOLESTEROL (Reported) Budesonide/Formoterol Fumarate (Symbicort 160-4.5 Mcg Inhaler) 10.2 GM HFA.AER.AD 2 PUF INH BID COPD Calcium Acetate 667 MG TABLET 3 CAP PO WM KIDNEYS (Reported) Escitalopram Oxalate 10 MG TABLET 1 TAB PO DAILY ANXIETY (Reported) Ipratropium/Albuterol Sulfate (Combivent Respimat Inhal [place]) 4 GM MIST.INHAL 1 PUFF INH 4 TIMES/DAY COPD (Reported) Metoprolol Tartrate 50 MG TABLET 50 MG PO BID HTN Nephro-Vitamins (Nephro-Angie Tablet) 0.8 MG TABLET 1 TAB PO DAILY SUPPLEMENT (Reported) Oxycodone HCl/Acetaminophen (Oxycodone-Acetaminophen 10-325) 10 MG-325 MG TABLET 1 TAB PO TID PRN PAIN (Reported) Pantoprazole Sodium 40 MG TABLET. 1 TAB PO DAILY GI (Reported) Roflumilast (Daliresp) 500 MCG TABLET 1 TAB PO DAILY COPD (Reported) Triage Note: PER PT WENT TO EYE DR FOR EYE EXAM TOLD BY OPTHAL DR FORD PT HAVING STROKE IN BILAT EYES Triage Nurses Notes Reviewed? yes HPI: Patient is a 71-year-old male sent in by his metal and plastic heater for "stroke in eye". Patient reports he was at a routine eye exam today when his doctor noticed the abnormality and patient was sent to the emergency department for further evaluation. Patient is currently completely free. Dr. Ford(patient's metal and plastic heater) called the triage nurse and reported that the left eye was the affected eye. Pain is 0 out of 10. Patient denies visual changes, headache, numbness, weakness, change in speech. (JOSELITO KIMBALL) Past History Travel History Traveled to [place] past 21 day No Medical History Any Pertinent Medical History? see below for history Neurological: NONE EENT: NONE Cardiovascular: CAD, hypertension, stents, severe pulmonary hypertension Respiratory: asthma, COPD, 2L O2 DEPENDANT CPAP EACH NIGHT Gastrointestinal: NONE Hepatic: NONE, hepatic congestion, splenomegaly Renal: ESRD on HD, FISTULA ON L UPPER EXT Musculoskeletal: NONE Psychiatric: NONE Endocrine: NONE, diabetes Blood Disorders: myelodysplastic syndrome. 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 MOTHER (CKD on HD, CAD, GA, DM). FATHER (CKD on Hemodialysis, CAD, DM). MOTHER (CKD on Hemodialysis, CAD, GA). Hx Contributory? No (JOSELITO KIMBALL) Review of Systems Review of Systems Constitutional: Denies: chills, fever. EENTM: Denies: blurred vision, visual changes, eye pain, eye tearing. Respiratory: Reports: short of breath (chronic, unchanged). Denies: see HPI. Cardiovascular: Denies: chest pain, syncope. GI: Denies: abdominal pain, nausea, vomiting. Genitourinary: Reports: no symptoms. Musculoskeletal: Denies: back pain, neck pain. Skin: Reports: no symptoms. Neurological/Psychological: Reports: see HPI. Denies: headache, numbness, paresthesia. Hematologic/Endocrine: Denies: bruising, bleeding. Immunologic/Allergic: Denies: splenectomy. (JOSELITO KIMBALL) Physical Exam Physical Exam General Appearance: well developed/nourished, alert, awake Head: atraumatic, normal appearance Eyes: Bilateral: normal appearance, PERRL, EOMI. Ears, Nose, Throat: normal ENT inspection, moist mucous membrane, hearing grossly normal Neck: normal inspection, full range of motion, no appreciable carotid bruit Respiratory: normal breath sounds, chest non-tender, no respiratory distress, lungs clear Cardiovascular: regular rate, rhythm appears regular with intermittent irregular beat Gastrointestinal: soft, non-tender Back: normal inspection, normal range of motion Extremities: normal range of motion Psychiatric: awake, alert, oriented x 3 Cranial Nerves: normal hearing, normal speech, PERRL Coordination/Gait: normal gait Motor/Sensory: no motor/sensory deficits Skin: intact, normal color, warm/dry Core Measures CVA/TIA Diagnosis: No Severe Sepsis Present: No Septic Shock Present: No (XIOMARA VALDES,JOSELITO) Progress Differential Diagnosis: cva, tia, retinal artery occlusion, retinal vein occlusion, carotid stenosis, afib Diagnostic Imaging: Viewed by Me: CT Scan. Discussed w/RAD: CT Scan. Radiology Impression: PATIENT: JAMES NELSON PRESENT AGE: 71 PATIENT ACCOUNT NO: [id number] : 45 LOCATION: [facility] ORDERING PHYSICIAN: JOSELITO VALDES SERVICE DATE: 11/15/16 EXAM TYPE: CAT - CT HEAD WO IV CONTRAST; CT ORBITS WO IV CONTRAST EXAMINATION: CT HEAD WITHOUT CONTRAST CT ORBIT WITHOUT CONTRAST CLINICAL INFORMATION: Question stroke. COMPARISON: None. TECHNIQUE: Contiguous axial imaging was performed from the skullbase to vertex without intravenous administration of contrast. Multidetector helical imaging was performed through the orbits. DLP: 792 mGy-cm. FINDINGS: There is no evidence of acute intracranial hemorrhage or territorial infarction. No abnormal mass effect or midline shift is seen. Conrad to white matter differentiation is well preserved. No extra-axial fluid collections are identified. There is a small chronic lacunar infarct in the left caudate head. The globes are symmetric in appearance. The extraocular muscles and optic nerve sheath complexes appear normal on this noncontrast study. No retrobulbar mass is identified. The lacrimal glands are unremarkable. The ventricles are normal in size. Mild chronic white matter microangiopathic changes are noted. The osseous structures and soft tissues are normal. The mastoid air cells and visualized portions of the paranasal sinuses are well aerated. IMPRESSION: No acute intracranial pathology. Mild small vessel ischemic changes in the cerebral white matter. Small chronic lacunar infarct in the left caudate nucleus. Normal noncontrast CT scan of the orbits. DICTATED BY: AHSAN PUGA MD DATE/TIME DICTATED:11/15/161908 APPLIED BEHAVIOR SPECIALIST:JANIE DATE/TIME TRANSCRIBED:1908 CONFIDENTIAL, DO NOT COPY WITHOUT APPROPRIATE AUTHORIZATION. < Electronically signed in Other Vendor System> SIGNED BY: AHSAN PUGA MD 11/15/161916 Hand-Off Endorsed To: RYAN GUNN MD Endorsed Time: 2003 Pending: EKG, labs, ultrasound (JOSELITO KIMBALL) Plan of Care: Orders Procedure Date/time Status EKG 11/15 1924 Active [id number] DOPPLER 11/15 1912 Active PARTIAL THROMBOPLASTIN TIME 11/15 1912 Active PROTHROMBIN TIME 11/15 1912 Active COMPREHENSIVE METABOLIC PANEL 11/15 1912 Active CBC WITHOUT DIFFERENTIAL 11/15 1912 Active ED- VISUAL ACUITY 11/15 1901 Active Discussed with on-call metal and plastic heater for Dr. Ford: does not have access to patient 's records, is not able to tell what Dr. Ford saw on exam that prompted referral to ED. No focal neurologic deficits on exam. Signed out to Dr. Gunn with EKG, labs and carotid dopplers pending. (JOSELITO KIMBALL) Diagnostic Imaging: Viewed by Me: Ultrasound. Discussed w/RAD: Ultrasound. Radiology Impression: Plaque is present in the internal carotid arteries but velocity measurements are normal and there is no evidence to suggest a hemodynamically significant stenosis of greater than 50% diameter reduction. Initial ED EKG: normal axis, normal intervals, normal QRS complex, normal sinus rhythm, nonspecific ST T wave chg Prior EKG: unchanged Rhythm Strip: normal sinus rhythm (RYAN GUNN MD) Departure Departure Condition: Stable Departure Forms: Customer Survey General Discharge Information (JOSELITO KIMBALL) Departure Time of Disposition: 2233 Disposition: HOME OR SELF CARE Clinical Impression Primary Impression: Retinal vein thrombosis Referrals: SARITA MONTES,CYNDI Barron (PCP/Family) Anne MALDONADO MD PA/BACKFILLER Co-Sign Statement Statement: ED Attending supervision documentation- x I saw and evaluated the patient. I have also reviewed all the pertinent lab results and diagnostic results. I agree with the findings and the plan of care as documented in the PA's/BACKFILLER's documentation. [] I have reviewed the ED Record and agree with the PA's/BACKFILLER's documentation. [] Additions or exceptions (if any) to the PAs/BACKFILLER's note and plan are summarized below: [] (LUIS A MONTES,RYAN)
[2016-11-15] MEDS ORDERED: PANTOPRAZOLE SO40 M1 PO (19:06)
[2016-11-15] MEDS ORDERED: ATORVASTATIN CA40 M1 PO (19:07)
[2016-11-15] MEDS ORDERED: LO-DOSE ASPIRIN81 MG PO (19:07)
[2016-11-15] MEDS ORDERED: ESCITALOPRAM OX10 MG PO (19:08)
[2016-11-15] MEDS ORDERED: OXYCODONE-ACET1 EAC1 PO (19:08)
--- NOTE | 2016-11-15 19:17 | CT SCAN REPORT ---
EXAMINATION: CT HEAD WITHOUT CONTRAST CT ORBIT WITHOUT CONTRAST CLINICAL INFORMATION: Question stroke. COMPARISON: None. TECHNIQUE: Contiguous axial imaging was performed from the skullbase to vertex without intravenous administration of contrast. Multidetector helical imaging was performed through the orbits. DLP: 792 mGy-cm. FINDINGS: There is no evidence of acute intracranial hemorrhage or territorial infarction. No abnormal mass effect or midline shift is seen. Conrad to white matter differentiation is well preserved. No extra-axial fluid collections are identified. There is a small chronic lacunar infarct in the left caudate head. The globes are symmetric in appearance. The extraocular muscles and optic nerve sheath complexes appear normal on this noncontrast study. No retrobulbar mass is identified. The lacrimal glands are unremarkable. The ventricles are normal in size. Mild chronic white matter microangiopathic changes are noted. The osseous structures and soft tissues are normal. The mastoid air cells and visualized portions of the paranasal sinuses are well aerated. IMPRESSION: No acute intracranial pathology. Mild small vessel ischemic changes in the cerebral white matter. Small chronic lacunar infarct in the left caudate nucleus. Normal noncontrast CT scan of the orbits.
[2016-11-15 20:27] LABS: ABSOLUTE BASOPHIL COUNT 0 /CUMM (0.0-0.2); ABSOLUTE EOSINOPHIL COUNT 0.2 /CUMM (0.0-0.7); ABSOLUTE GRANULOCYTE CT 5.1 /CUMM (1.4-6.5); ABSOLUTE LYMPH COUNT 1.3 /CUMM (1.2-3.4); ABSOLUTE MONOCYTE COUNT 0.6 /CUMM (0.10-0.60); BASOPHIL % 0.5 % (0.0-2.0); EOSINOPHIL % 2.5 % (0-5); HEMATOCRIT 28.8 % (42-52); MEAN CORPUSCULAR HGB 27.5 PG (27.0-31.0); MEAN CORPUSCULAR HGB CONC 30.8 G/DL (33.0-37.0); MEAN CORPUSCULAR VOLUME 89.5 FL (80.0-94.0); MEAN PLATELET VOLUME 10.8 FL (7.4-10.4); PLATELET COUNT 131 /CUMM (130-400); RBC DISTRIBUTION WIDTH 17.2 % (11.5-14.5); RED BLOOD CELL CT 3.21 /CUMM (4.70-6.10); WHITE BLOOD CELL COUNT 7.2 /CUMM (4.8-10.8)
[2016-11-15 20:35] LABS: PT 14.6 SEC (9.4-12.5); PTT 31 SEC (25-37)
[2016-11-15 21:04] VITALS: BP 148/72
--- NOTE | 2016-11-15 22:16 | ULTRASOUND REPORT ---
EXAMINATION: DUPLEX BILATERAL CAROTID ULTRASOUND CLINICAL INFORMATION: "stroke" in his eye COMPARISON: None. TECHNIQUE: Duplex bilateral carotid US was performed using real-time ultrasound and Doppler techniques (integrating B-mode 2D vascular images, Doppler spectral analysis and color flow Doppler imaging). These techniques were utilized to interrogate the extracranial carotid and vertebral arteries bilaterally. The degree of stenosis is based off criteria similar to NASCET. FINDINGS: 1. On the right: Echogenic shadowing plaque is present at the carotid bifurcation but velocity measurements are normal and do not suggest a stenosis of greater than 50% diameter reduction in the right ICA. The vertebral artery is patent demonstrating antegrade flow. 2. On the left: Plaque is present at the carotid bifurcation but velocity measurements are normal and do not suggest a stenosis of greater than 50% diameter reduction in the left ICA. The vertebral artery is patent demonstrating antegrade flow. The external carotid arteries demonstrate mild stenosis bilaterally. IMPRESSION: Plaque is present in the internal carotid arteries but velocity measurements are normal and there is no evidence to suggest a hemodynamically significant stenosis of greater than 50% diameter reduction.
== END 2016-11-15 23:01 ==
LOC: ERH 18:08
PROVIDERS: Physician Assistant
DX: H34.8120 Central retinal vein occlusion, left eye, with macular edema (principal); I10 Essential (primary) hypertension; E11.9 Type 2 diabetes mellitus without complications
CPT/HCPCS: 1263; 93005; 93010

== ENCOUNTER 2016-12-09 23:27 | Inpatient (IN) | payer OTHER ==
[~2016-12-09] VITALS: Ht 165.1 cm; Wt 76.9 kg
[~2016-12-09 23:27] MED LIST changes: +ATORVASTATIN CA40 M1 PO; +ESCITALOPRAM OX10 MG PO; +LO-DOSE ASPIRIN81 MG PO; +PANTOPRAZOLE SO40 M1 PO
--- NOTE | 2016-12-09 23:31 | ED CARDIAC/CP/PALPITATIONS ---
History of Present Illness General Chief Complaint: Chest Pain Stated Complaint: BIBA CP Source: patient, family, EMS Exam Limitations: no limitations Vital Signs & Intake/Output Vital Signs & Intake/Output Vital Signs Date Time Temp Pulse Resp B/P Pulse O2 O2 Flow FiO2 Ox Delivery Rate 12/10 0150 92 16 130/63 93 Nasal 4.0L Cannula 12/10 0132 Nasal 2.0L Cannula 12/09 2335 96.3 113 24 137/74 91 Nasal 4.0L Cannula ED Intake and Output 12/10 0000 12/09 1200 Intake Total Output Total Balance Patient 184 lb Weight Allergies Coded Allergies: venom-honey bee (bee venom (honey bee)) (Severe, ANAPHYLAXIS 12/09/16) Penicillins (Intermediate, RASH 12/09/16) Reconcile Medications Albuterol Sulfate 2.5 MG/3 ML VIAL.NEB 1 Vial INH/ROSALINDA Q4P COPD (Reported) Albuterol Sulfate (Proair Hfa) 8.5 GM HFA.AER.AD 2 PUF INH PRN COPD (Reported ) Aspirin (Lo-Dose Aspirin EC) 81 MG TABLET.DR 1 TAB PO DAILY HEART/BLOOD ( Reported) Atorvastatin Calcium 40 MG TABLET 1 TAB PO DAILY CHOLESTEROL (Reported) Budesonide/Formoterol Fumarate (Symbicort 160-4.5 Mcg Inhaler) 10.2 GM HFA.AER.AD 2 PUF INH BID COPD Calcium Acetate 667 MG TABLET 3 CAP PO WM KIDNEYS (Reported) Escitalopram Oxalate 10 MG TABLET 1 TAB PO DAILY ANXIETY (Reported) Ipratropium/Albuterol Sulfate (Combivent Respimat Inhal [place]) 4 GM MIST.INHAL 1 PUFF INH 4 TIMES/DAY COPD (Reported) Metoprolol Tartrate 50 MG TABLET 50 MG PO BID HTN Nephro-Vitamins (Nephro-Angie Tablet) 0.8 MG TABLET 1 TAB PO DAILY SUPPLEMENT (Reported) Oxycodone HCl/Acetaminophen (Oxycodone-Acetaminophen 10-325) 10 MG-325 MG TABLET 1 TAB PO TID PRN PAIN (Reported) Pantoprazole Sodium 40 MG TABLET.DR 1 TAB PO DAILY GI (Reported) Roflumilast (Daliresp) 500 MCG TABLET 1 TAB PO DAILY COPD (Reported) Triage Nurses Notes Reviewed? yes Onset: Gradual Duration: day(s):, getting worse Timing: recent history Quality/Severity: moderate Location: central Radiation: no radiation Activities at Onset: coughing, with phlegm Prior Chest Pain/Card Workup: pt with cad Modifying Factors: Improves With: oxygen. Associated Symptoms: cough, phlegm, dyspnea HPI: 71-year-old gentleman history of end-stage renal disease, COPD, presents with dyspnea. He states that for the past 3-4 days he has had progressive dyspnea. He notes cough productive of yellow sputum. He notes parasternal chest wall tenderness with coughing, diaphoresis. He notes that he has been on azithromycin for the past 3 days. He has no fever or chills increasing edema. His dialysis schedule is Saturday. He notes no increased salt in his diet. He has no nausea vomiting diarrhea. The medics noted that he was hypoxic and increased his oxygen from 2 to 4lpm. Past History Travel History Traveled to [place] past 21 day No Medical History Any Pertinent Medical History? see below for history Neurological: NONE EENT: NONE Cardiovascular: CAD, hypertension, stents, severe pulmonary hypertension Respiratory: asthma, COPD, 2L O2 DEPENDANT CPAP EACH NIGHT Gastrointestinal: NONE Hepatic: hepatic congestion, splenomegaly Renal: ESRD on HD, FISTULA ON L UPPER EXT Musculoskeletal: NONE Psychiatric: NONE Endocrine: diabetes Blood Disorders: myelodysplastic syndrome. 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 MOTHER (CKD on HD, CAD, ID, DM). FATHER (CKD on Hemodialysis, CAD, DM). MOTHER (CKD on Hemodialysis, CAD, ID). Hx Contributory? No Review of Systems Review of Systems Constitutional: Reports: no symptoms. EENTM: Reports: no symptoms. Respiratory: Reports: no symptoms. Cardiovascular: Reports: no symptoms. GI: Reports: no symptoms. Genitourinary: Reports: no symptoms. Musculoskeletal: Reports: no symptoms. Skin: Reports: no symptoms. Neurological/Psychological: Reports: no symptoms. Hematologic/Endocrine: Reports: no symptoms. Immunologic/Allergic: Reports: no symptoms. All Other Systems: Reviewed and Negative Physical Exam Physical Exam General Appearance: well developed/nourished, mild distress Head: atraumatic, normal appearance Eyes: Bilateral: normal appearance. Ears, Nose, Throat: normal pharynx, normal ENT inspection Neck: normal inspection, supple, full range of motion Respiratory: no respiratory distress, rhonchi, left parasternal chest wall tenderness to palpation. Cardiovascular: regular rate/rhythm Gastrointestinal: normal bowel sounds, soft, non-tender Back: normal inspection, normal range of motion Extremities: normal inspection, normal capillary refill, normal range of motion, trace edema Neurologic/Psych: no motor/sensory deficits, awake, alert, oriented x 3 Skin: intact, normal color, warm/dry Core Measures ACS in differential dx? No Severe Sepsis Present: No Septic Shock Present: No Progress Differential Diagnosis: AMI, CHF/pulm edema, costochondritis, pneumonia Plan of Care: Orders Procedure Date/time Status Nothing by Mouth 12/10 B Active Patient Data 12/10 0214 Active Saline Lock 12/11 203 Active Misc Message 12/11 203 Active ED Holding Orders 12/11 203 Active Admit to inpatient 12/10 0204 Active Vital Signs 12/104 Active Code Status 12/10 0204 Active CTA CHEST-PULMONARY EMBOLISM 12/10 0159 Active BLOOD CULTURE 12/10 0005 Active BLOOD CULTURE 12/10 0001 Active TROPONIN LEVEL 12/09 2330 Complete PARTIAL THROMBOPLASTIN TIME 12/09 2330 Complete PROTHROMBIN TIME 12/09 2330 Complete D-DIMER 12/09 2330 Complete COMPREHENSIVE METABOLIC PANEL 12/09 2330 Complete CBC WITHOUT DIFFERENTIAL 12/09 2330 Complete B-TYPE NATRIURETIC PEP (BNP) 12/09 2330 Complete EKG 12/09 232 Active Laboratory Tests 12/10/16 0018: Anion Gap 19 H, Estimated GFR 6 L, BUN/Creatinine Ratio 9.4, Glucose 91, Calcium 8.9, Total Bilirubin 1.2, AST 34, ALT 42, Alkaline Phosphatase 121, Troponin I 0.10, Tfe-G-Xulimbllrlx Pept H, Total Protein 7.1, Albumin 3.9, Globulin 3.2, Albumin/Globulin Ratio 1.2, PT 15.6 H, INR 1.49 H, APTT 33, D-Dimer 901 H, CBC w Diff NO MAN DIFF REQ, RBC 3.78 L, MCV 86.1, MCH 27.0, RDW 16.9 H, MPV 11.6 H, Gran % 80.5 H, Lymphocytes % 8.4 L, Monocytes % 10.7 H, Eosinophils % 0, Basophils % 0.4, Absolute Granulocytes 7.0 H, Absolute Lymphocytes 0.7 L, Absolute Monocytes 0.9 H, Absolute Eosinophils 0, Absolute Basophils 0, PUBS MCHC 31.4 L Microbiology 12/10 0105 BLOOD: Blood Culture - RECD 12/10 003 BLOOD: Blood Culture - RECD Diagnostic Imaging: Viewed by Me: Radiology Read. Discussed w/RAD: Radiology Read. CXR Impression: effusion, congestion Initial ED EKG: normal axis, normal intervals, normal p-waves, normal QRS complex, normal sinus rhythm, sinus tach Comments: PATIENT: JAMES NELSON PRESENT AGE: 71 PATIENT ACCOUNT NO: [id number] : 45 LOCATION: [facility] ORDERING PHYSICIAN: JAQUELINE HINOJOSA MD SERVICE DATE: 12/09/16 EXAM TYPE: RAD - XRY-PORTABLE CHEST XRAY EXAMINATION: CHEST 1 VIEW CLINICAL INFORMATION: Chest pain. COMPARISON: 09/18/2016. TECHNIQUE: An AP view of the chest is provided. FINDINGS: The cardiac silhouette is enlarged, but stable. There is interstitial prominence, increased from prior exam. There is patchy opacification within the lateral right lung base. A vascular stents overlying the left axilla is again identified. The osseous structures are stable. IMPRESSION: Stable cardiomegaly with interval increase in interstitial prominence likely benefits representative of vascular congestion. Small focus of wedge-shaped opacification at the lateral right lung base which likely corresponds to airspace disease with a possible small right pleural effusion. DICTATED BY: BRUCE WEIR MD DATE/TIME DICTATED:12/10/1645 CABLE BRAIDER:JANIE DATE/TIME TRANSCRIBED:12/10/1645 CONFIDENTIAL, DO NOT COPY WITHOUT APPROPRIATE AUTHORIZATION. <Electronically signed in Other Vendor System> SIGNED BY: BRUCE WEIR MD 12/10/16 0051 Departure Departure Disposition: STILL A PATIENT Condition: Stable Clinical Impression Primary Impression: Pneumonia Secondary Impressions: Chest pain, COPD exacerbation, ESRD (end stage renal disease), Sepsis, Volume overload Referrals: SARITA MONTES,CYNDI Barron (PCP/Family) Departure Forms: Customer Survey General Discharge Information Admission Note Spoke With: YOANDY MONTES,[facility] Documentation of Exam: Documentation of any treatments & extenuating circumstances including Concerns Regarding Discharge (functional status, medication knowledge or non-compliance, living conditions, etc.) that warrant an admission rather than observation: pt with increased 02 requirement... from 2 to 4 liters nasal cannula.... pt with volume overload, pnuemonia/copd exacerbation... merits steroids/abx, tele admit for rule out given his chest pain. Critical Care Note Critical Care Note Critical Care Time: 30-74 min
[2016-12-10 00:44] LABS: ABSOLUTE BASOPHIL COUNT 0 /CUMM (0.0-0.2); ABSOLUTE EOSINOPHIL COUNT 0 /CUMM (0.0-0.7); ABSOLUTE LYMPH COUNT 0.7 /CUMM (1.2-3.4); ABSOLUTE MONOCYTE COUNT 0.9 /CUMM (0.10-0.60); BASOPHIL % 0.4 % (0.0-2.0); EOSINOPHIL % 0 % (0-5); GRANULOCYTE % 80.5 % (42.2-75.2); HEMATOCRIT 32.5 % (42-52); MEAN CORPUSCULAR HGB CONC 31.4 G/DL (33.0-37.0); MEAN CORPUSCULAR VOLUME 86.1 FL (80.0-94.0); MEAN PLATELET VOLUME 11.6 FL (7.4-10.4); PLATELET COUNT 174 /CUMM (130-400); RBC DISTRIBUTION WIDTH 16.9 % (11.5-14.5); RED BLOOD CELL CT 3.78 /CUMM (4.70-6.10); WHITE BLOOD CELL COUNT 8.7 /CUMM (4.8-10.8)
--- NOTE | 2016-12-10 00:51 | RADIOLOGY REPORT ---
EXAMINATION: CHEST 1 VIEW CLINICAL INFORMATION: Chest pain. COMPARISON: 09/18/2016. TECHNIQUE: An AP view of the chest is provided. FINDINGS: The cardiac silhouette is enlarged, but stable. There is interstitial prominence, increased from prior exam. There is patchy opacification within the lateral right lung base. A vascular stents overlying the left axilla is again identified. The osseous structures are stable. IMPRESSION: Stable cardiomegaly with interval increase in interstitial prominence likely sales representative printing of vascular congestion. Small focus of wedge-shaped opacification at the lateral right lung base which likely corresponds to airspace disease with a possible small right pleural effusion.
[2016-12-10 01:09] LABS: PT 15.6 SEC (9.4-12.5); PTT 33 SEC (25-37)
--- NOTE | 2016-12-10 02:24 | History & Physical ---
JOHANNA MONTES,[facility] 12/10/16 0223: General Information and HPI MD Statement: I have seen and personally examined JAMES NELSON and documented this H&P. The patient is a 71 year old M who presented with a patient stated chief complaint of [difficulty breathing]. Source of Information: patient Exam Limitations: no limitations History of Present Illness: Patient is a 71 year old gentleman with PMH of COPD on 2 L oxygen at home, obstructive sleep apnea on CPAP at night, hypertension, coronary artery disease status post stenting, pulmonary hypertension, end-stage renal disease on hemodialysis, who was BIBA to the ED due to worsening SOB and coughing since Saturday, worst when walking, increased oxygen demand (up to 4 liters) and accompanied by a chest pain on the left side of the chest that started last night. Chest pain started at night when he was gone to bed and was on CPAP, pain was 10/10 in severity originally when he was at home, but subsided to 2/10 when he arrived in the ED. Aggravated by coughing with no radiation. He was told to take 4 of the baby aspirin on the way to the hospital by the EMS. Patient reports cold sweats when becoming short of breath but not with the chest pain, denies dizziness, denies leg swelling. His last dialysis was on Saturday ( and 1.7 L was taken out). He is due for dialysis today. Patient denies sick contacts but reports an upper respiratory infections with runny nose, sneezing and coughing since about a week ago. He has chronic cough with white sputum which has increased and sputum color is more yellowish recently. Reports fever and chills in addition to the URI for which he was given antibiotics for 5 days. Allergies/Medications Allergies: Coded Allergies: venom-honey bee (bee venom (honey bee)) (Severe, ANAPHYLAXIS 12/09/16) Penicillins (Intermediate, RASH 12/09/16) Home Med list Albuterol Sulfate 2.5 MG/3 ML VIAL.NEB 1 Vial INH/ROSALINDA Q4P COPD (Reported) Albuterol Sulfate (Proair Hfa) 8.5 GM HFA.AER.AD 2 PUF INH PRN COPD (Reported ) Aspirin (Lo-Dose Aspirin EC) 81 MG TABLET.DR 1 TAB PO DAILY HEART/BLOOD ( Reported) Atorvastatin Calcium 40 MG TABLET 1 TAB PO DAILY CHOLESTEROL (Reported) Budesonide/Formoterol Fumarate (Symbicort 160-4.5 Mcg Inhaler) 10.2 GM HFA.AER.AD 2 PUF INH BID COPD Calcium Acetate 667 MG TABLET 3 CAP PO WM KIDNEYS (Reported) Escitalopram Oxalate 10 MG TABLET 1 TAB PO DAILY ANXIETY (Reported) Ipratropium/Albuterol Sulfate (Combivent Respimat Inhal [place]) 4 GM MIST.INHAL 1 PUFF INH 4 TIMES/DAY COPD (Reported) Metoprolol Tartrate 50 MG TABLET 50 MG PO BID HTN Nephro-Vitamins (Nephro-Angie Tablet) 0.8 MG TABLET 1 TAB PO DAILY SUPPLEMENT (Reported) Oxycodone HCl/Acetaminophen (Oxycodone-Acetaminophen 10-325) 10 MG-325 MG TABLET 1 TAB PO TID PRN PAIN (Reported) Pantoprazole Sodium 40 MG TABLET.DR 1 TAB PO DAILY GI (Reported) Roflumilast (Daliresp) 500 MCG TABLET 1 TAB PO DAILY COPD (Reported) Past History Travel History Traveled to [place] past 21 day No Medical History Neurological: NONE EENT: NONE Cardiovascular: CAD, hypertension, stents, severe pulmonary hypertension Respiratory: asthma, COPD, 2L O2 DEPENDANT CPAP EACH NIGHT Gastrointestinal: NONE Hepatic: hepatic congestion, splenomegaly Renal: ESRD on HD, FISTULA ON L UPPER EXT Musculoskeletal: NONE Psychiatric: NONE Endocrine: diabetes Blood Disorders: myelodysplastic syndrome. 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 MOTHER (CKD on HD, CAD, MA, DM). FATHER (CKD on Hemodialysis, CAD, DM). MOTHER (CKD on Hemodialysis, CAD, MA). Psychosocial History Who Do You Live With? spouse Services at Home: Oxygen Primary Language: [place]de[place] Smoking Status: Former Smoker ETOH Use: denies use Functional Ability ADLs Independent: eating, toileting. Needs Assist: bathing. Ambulation: independent Review of Systems Review of Systems Constitutional: Denies: chills, fever, weakness. EENTM: Reports: no symptoms. Cardiovascular: Reports: chest pain. Denies: orthopena, palpitations, peripheral edema, syncope. Respiratory: Reports: cough, short of breath, sputum production. GI: Reports: abdominal pain, constipation, nausea. Denies: bloody stool, vomiting. Genitourinary: Reports: no symptoms (patient is anuric). Musculoskeletal: Reports: no symptoms. Skin: Reports: no symptoms. Neurological/Psychological: Reports: no symptoms. Hematologic/Endocrine: Reports: no symptoms. Exam & Diagnostic Data Last 24 Hrs of Vital Signs/I&O Vital Signs Date Time Temp Pulse Resp B/P Pulse O2 O2 Flow FiO2 Ox Delivery Rate 12/10 0831 96 Nasal 3.0L Cannula 12/10 0813 96 Nasal 3.0L Cannula 12/10 0733 99.0 100 24 140/67 94 Nasal Cannula 12/10 0721 97.1 90 20 158/74 96 Nasal 3.0L Cannula 12/10 0708 97.1 92 20 158/74 96 Room Air 12/10 0635 97.1 93 20 154/72 95 Room Air 12/10 0443 97.0 91 18 136/75 94 Room Air 12/10 0440 Nasal 4.0L Cannula 12/10 0430 95 Room Air 4.0L 12/10 0150 92 16 130/63 93 Nasal 4.0L Cannula 12/10 0132 Nasal 2.0L Cannula 12/09 2335 96.3 113 24 137/74 91 Nasal 4.0L Cannula Intake & Output 12/10 1600 12/10 0800 12/10 0000 Intake Total 40 Output Total Balance 40 Intake, Oral 40 Patient 83.461 kg 83.5 kg Weight Physical Exam General Appearance Alert, Oriented X3, Cooperative, No Acute Distress Skin No Significant Lesion HEENT Atraumatic, EOMI, Mucous Membr. moist/pink, pupils round and reactive to light Neck Supple, No JVD Cardiovascular Regular Rate, Normal S1, Normal S2, No Murmurs Lungs there is diffuse and bilateral wheezing and rhonchi Abdomen Soft, mild tenderness on palpation of the right upper quadrant Neurological Normal Speech, Strength at 5/5 X4 Ext, Normal Tone Extremities No Edema, Normal Pulses, No Tenderness/Swelling Vascular Pulses Symmetrical Last 24 Hrs of Labs/Jesus: Laboratory Tests 12/10/16 0543: Anion Gap 21 H, Estimated GFR 6 L, BUN/Creatinine Ratio 9.4, Troponin I 0.10, CBC w Diff NO MAN DIFF REQ, RBC 3.73 L, MCV 86.3, MCH 27.1, RDW 17.2 H, MPV 10.9 H, Gran % 91.8 H, Lymphocytes % 5.9 L, Monocytes % 2.3, Eosinophils % 0, Basophils % 0 L, Absolute Granulocytes 6.3, Absolute Lymphocytes 0.4 L, Absolute Monocytes 0.2, Absolute Eosinophils 0, Absolute Basophils 0, PUBS MCHC 31.4 L 12/10/16 0018: Anion Gap 19 H, Estimated GFR 6 L, BUN/Creatinine Ratio 9.4, Glucose 91, Calcium 8.9, Total Bilirubin 1.2, AST 34, ALT 42, Alkaline Phosphatase 121, Troponin I 0.10, Fll-[id number]-Tsxmqokyxhb Pept 101589 H, Total Protein 7.1, Albumin 3.9, Globulin 3.2, Albumin/Globulin Ratio 1.2, PT 15.6 H, INR 1.49 H, APTT 33, D-Dimer 901 H, CBC w Diff NO MAN DIFF REQ, RBC 3.78 L, MCV 86.1, MCH 27.0, RDW 16.9 H, MPV 11.6 H, Gran % 80.5 H, Lymphocytes % 8.4 L, Monocytes % 10.7 H, Eosinophils % 0, Basophils % 0.4, Absolute Granulocytes 7.0 H, Absolute Lymphocytes 0.7 L, Absolute Monocytes 0.9 H, Absolute Eosinophils 0, Absolute Basophils 0, PUBS MCHC 31.4 L Microbiology 12/10 0734 LOWER RESP: Respiratory Culture - ORD 12/10 0734 LOWER RESP: Gram Stain - ORD 12/10 0105 BLOOD: Blood Culture - RECD 12/10 0032 BLOOD: Blood Culture - RECD Diagnostic Data CXR Results SERVICE DATE: 12/09/16 EXAM TYPE: RAD - XRY-PORTABLE CHEST XRAY EXAMINATION: CHEST 1 VIEW CLINICAL INFORMATION: Chest pain. COMPARISON: 09/18/2016. TECHNIQUE: An AP view of the chest is provided. FINDINGS: The cardiac silhouette is enlarged, but stable. There is interstitial prominence, increased from prior exam. There is patchy opacification within the lateral right lung base. A vascular stents overlying the left axilla is again identified. The osseous structures are stable. 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 Small focus of wedge-shaped opacification at the lateral right lung base which likely corresponds to airspace disease with a possible small right pleural effusion. DICTATED BY: BRUCE WEIR MD DATE/TIME DICTATED:12/10/1645 ADVERTISING EDITOR:JANIE DATE/TIME TRANSCRIBED:12/10/1645 Other Results SERVICE DATE: 12/10/16 EXAM TYPE: CAT - CTA CHEST-PULMONARY EMBOLISM EXAMINATION: CT PULMONARY EMBOLISM STUDY CLINICAL INFORMATION: Dyspnea. Positive d-dimer. COMPARISON: 09/15/2016. TECHNIQUE: Contiguous helical images of the chest were obtained following the administration of IV contrast. Multiplanar reconstructions were performed. MIPS were obtained and reviewed. DLP: 553 mGy-cm. CONTRAST: 80 mL of Optiray 350 were administered without incident. FINDINGS: The heart is of normal size. There is no pericardial effusion. Again identified are several mediastinal lymph nodes, increased in size from prior exam. There is a superior right paratracheal lymph node on image 81/570 measuring approximately 2.0 x 1.0 cm. There is a lower pretracheal lymph node measuring approximately 1.5 x 1.4 cm. There is a lower right paratracheal conglomeration of lymph nodes measuring approximately 3.2 x 1.7 cm. No pulmonary arterial filling defects are identified. Again identified is diffuse atherosclerotic disease within the thoracic aorta with multiple saccular aneurysms, not significantly changed from prior exam. There is no CT evidence for pulmonary embolism. There are no chest wall masses. There is a moderate right pleural effusion and a small left pleural effusion. There is associated airspace disease at the right lung base. There is mild atelectasis at the left lung base. There is biapical emphysema. There is bilateral multifocal bronchiectasis. Limited evaluation of the upper abdomen demonstrates that the liver is of normal size and attenuation without focal lesions. Normal adrenal glands are identified. There is intrahepatic biliary gas present, similar to prior studies and likely iatrogenic. The patient is status post cholecystectomy. IMPRESSION: No CT evidence for pulmonary embolism. Stable atherosclerotic disease with multiple small saccular aneurysms within the thoracic aorta. Moderate right and small left pleural effusions with associated airspace disease. Emphysema. Interval increase in size in multiple mediastinal lymph nodes. The largest is a lower right paratracheal lymph node. Correlate with patient history. Consider correlation with PET/CT for further characterization. DICTATED BY: BRUCE WEIR MD DATE/TIME DICTATED:12/10/16256 ADVERTISING EDITOR:JANIE DATE/TIME TRANSCRIBED:12/10/16256 Assessment/Plan Assessment: Patient is a 71 year old gentleman with PMH of COPD on 2 L oxygen at home, obstructive sleep apnea on CPAP at night, hypertension, coronary artery disease status post stenting, pulmonary hypertension, end-stage renal disease on hemodialysis, who was BIBA to the ED due to worsening SOB and coughing for 2 days which was accompanied by left sided chest pain before presentation. Problem list and plan: Atypical chest pain On the left side of the chest, worsening with breathing, no radiation to the left arm or neck. EKG does not show acute changes. Last ECHO: 09/17/16 - Mildly reduced global left ventricular systolic function. Mildly abnormal left ventricular ejection fraction estimated at 40-45%. * serial troponin and eKG to rule out ACS * telemetry monitoring * cardiology consult in am Hypoxic respiratory failure, possible COPD exacerbation In the setting if end stage COPD and a recent URI CXR showed: Stable cardiomegaly with interval increase in interstitial prominence likely due to vascular congestion. Small focus of wedge-shaped opacification at the lateral right lung base which likely corresponds to airspace disease with a possible small right pleural effusion. CTA was negative for PE, also showed moderate right and small left pleural effusions and interval increase in size in multiple mediastinal lymph nodes. * O2 suppl. as needed * TRC eval and nebulizer treatment * IV solmedrol * Azithromycin * Continue Symbicort, albuterol, roflumilast * Pulmonary consult with Dr. Belle History of CAD Was on aspirin and plavix after cardiac catheterization for 2 weeks. Currently off of plavix * continue aspirin * statin * metoprolol ESRD on dialysis Sat/Sat/Sat * nephrology consult placed for am * continue ca acetate and Nephrovites * Monitor electrolytes, monitor BUN Cr Anxiety * continue escitalopram GERD * continue PPI Renal dialysis diet Pain with tylenol, vicodin and percocet DVT px with SC heparin FULL CODE As Ranked By This Provider Problem List: 1. Anemia 2. CONGESTIVE HEART FAILURE 3. Chronic kidney disease stage 4 4. COPD EXACERBATION 5. Sleep apnea Core Measures/Miscellaneous Acute Coronary Syndrome ACS Diagnosis: No Cerebrovascular Accident CVA/TIA Diagnosis: No Congestive Heart Failure CHF Diagnosis: No Date of most recent Echo: 01/16/17 Last Known EF %: 40 No ROSE/ARB d/t: Renal Failure/Azotemia Venous Thromboembolism VTE Risk Factors: Acute medical illness, Age > 40 [facility] prophylaxis d/t: No contraindications No VTE Pharm Prophylaxis d/t: No contraindications VTE Diagnosis: No VTE Type: NONE VTE Confirmed by (Test): NONE Severe Sepsis Severe Sepsis Present: No Septic Shock Septic Shock Present: No Miscellaneous Documentation Attending Case Discussed With: YOANDY MONTES,[place] Primary Care Physician: CYNDI STEIN MD Patient sees these Specialists Dr. Hemal Belle Level of Patient Care: Telemetry ANTHONY NUÑEZ 12/10/16 0506: Resident Review Statement Resident Statement: examined this patient, discussed with project intern, agreed with project intern, discussed with family, reviewed EMR data (avail), discussed with nursing , discussed with case mgmt, reviewed images, amended to note Other Findings: This is 71-year-old man with past medical history of chronic hypoxic respiratory failure, COPD on 2L O2, LLUVIA on CPAP, CAD s/p stent, pulmonary hypertension, ESRD on dialysis (M/W/F), last admitted for COPD exacerbation with acute hypoxic hypercarbic respiratory failure in Sep 2016. Now patient presented to the ED for worsening exertional dyspnea associated with left sided pleuritic chest pain , cough productive of yellow phlegm and failed recent outpatient antibiotic therapy with Zpak for a bronchitis/pneumonia that was prescribed by his primary care doctor. He had to increase his O2 from 2 to 4L to help him breathe better. Patient deny any fever, chills, pain, nausea, vomiting, diarrhea. Patient stated that he went for his regular scheduled hemodialysis on Saturday.. Physical examination, lab and imaging as above. Assessment: -Acute on chronic hypoxic hypercarbic respiratory failure: CTA was done in the ED and came back negative for pulmonary embolism, it showed new moderate size right-sided pleural effusion that's new comparing with the previous CAT scan that was done on 01/31/2017, the patient not actively wheezing, giving the patient doesn't make any urine and he is due for his calluses today we see if that will take care off the pleural effusion otherwise he would need a therapeutic thoracentesis. Right basilar pneumonia that would need IV antibiotic. -Congestive heart failure exacerbation: It could be most likely due to fluid overload secondary to the pleural effusion as his pro-P peptide is elevated. Plan: -Admit patient to telemetry floor -Vitals every shift, strict I&O's, daily weight -Continue IV ceftriaxone and azithromycin -TRC nebs as needed -Sputum and blood culture -Pulmonary consultation a.m. -Nephrology consultation for dialysis in a.m. -Serial troponin and EKG -Cardiology Consultation a.m. -Continue home medication -Renal dialysis diet -Pain pathway -DVT prophylaxis subcutaneous heparin -Full code YOANDY MONTES, [facility] 12/10/16 0657: Attending MD Review Statement Attending Statement Attending MD Statement: examined this patient, discuss w/resident/PA/[employer] PRODUCTION MANAGER, agreed w/resident/PA/[employer] PRODUCTION MANAGER, discussed with family Attending Assessment/Plan: 71 yo obese M with h/o chronic hypoxic respiratory failure, COPD on 2L O2, LLUVIA on CPAP, CAD s/p stent, pulm hypertension, ESRD on dialysis (M/W/F), last admitted for COPDE in Sep 2016 is here for worsening exertional dyspnea, left sided pleuritic chest pain, cough productive of yellow phlegm and failed recent outpatient antibiotic therapy with Zpak for a bronchitis/pneumonia. He had to increase his O2 from 2 to 4L to help him breathe better. He was dialysed on Saturday, dry weight 83.5, removed ?1.5L. He does not make urine. Vitals stable, except for tachycardia. Labs no leukocytosis, elevated D-dimer, K 5.3, BUN 81, creat 8.6, trop neg, proBNP [id number]. EKG: sinus tachycardia, PACs. CXR: cardiomegaly with vascular congestion. Right lung base opacification with pleural effusion. CTA: no PE, moderate right and small left pleural effusions with associated airspace disease. Interval increase in mediastinal LN, may need PET/CT. Echo (2017): EF 40-45%. 1. Acute on chronic hypoxic respiratory failure in the setting of fluid overload / pleural effusions in this patient with ESRD, and right basilar pneumonia likely community acquired. I don't think he has COPDE. Tele admit, TRC nebs, sputum culture, plan for dialysis this AM, Nephro consult patient received contrast for CT. Will treat with ceftriaxone and azithro. Add mucinex. Rule out ACS with serial EKG and troponin. Obtain pulm (Dr. Belle) and cardio (Dr. Recio) consult. DVT ppx Hep SC. Full code.
--- NOTE | 2016-12-10 03:28 | CT SCAN REPORT ---
EXAMINATION: CT PULMONARY EMBOLISM STUDY CLINICAL INFORMATION: Dyspnea. Positive d-dimer. COMPARISON: 09/15/2016. TECHNIQUE: Contiguous helical images of the chest were obtained following the administration of IV contrast. Multiplanar reconstructions were performed. MIPS were obtained and reviewed. DLP: 553 mGy-cm. CONTRAST: 80 mL of Optiray 350 were administered without incident. FINDINGS: The heart is of normal size. There is no pericardial effusion. Again identified are several mediastinal lymph nodes, increased in size from prior exam. There is a superior right paratracheal lymph node on image 81/570 measuring approximately 2.0 x 1.0 cm. There is a lower pretracheal lymph node measuring approximately 1.5 x 1.4 cm. There is a lower right paratracheal conglomeration of lymph nodes measuring approximately 3.2 x 1.7 cm. No pulmonary arterial filling defects are identified. Again identified is diffuse atherosclerotic disease within the thoracic aorta with multiple saccular aneurysms, not significantly changed from prior exam. There is no CT evidence for pulmonary embolism. There are no chest wall masses. There is a moderate right pleural effusion and a small left pleural effusion. There is associated airspace disease at the right lung base. There is mild atelectasis at the left lung base. There is biapical emphysema. There is bilateral multifocal bronchiectasis. Limited evaluation of the upper abdomen demonstrates that the liver is of normal size and attenuation without focal lesions. Normal adrenal glands are identified. There is intrahepatic biliary gas present, similar to prior studies and likely iatrogenic. The patient is status post cholecystectomy. IMPRESSION: No CT evidence for pulmonary embolism. Stable atherosclerotic disease with multiple small saccular aneurysms within the thoracic aorta. Moderate right and small left pleural effusions with associated airspace disease. Emphysema. Interval increase in size in multiple mediastinal lymph nodes. The largest is a lower right paratracheal lymph node. Correlate with patient history. Consider correlation with PET/CT for further characterization.
[2016-12-10 05:53] LABS: ABSOLUTE BASOPHIL COUNT 0 /CUMM (0.0-0.2); ABSOLUTE EOSINOPHIL COUNT 0 /CUMM (0.0-0.7); ABSOLUTE GRANULOCYTE CT 6.3 /CUMM (1.4-6.5); ABSOLUTE LYMPH COUNT 0.4 /CUMM (1.2-3.4); ABSOLUTE MONOCYTE COUNT 0.2 /CUMM (0.10-0.60); BASOPHIL % 0 % (0.0-2.0); EOSINOPHIL % 0 % (0-5); GRANULOCYTE % 91.8 % (42.2-75.2); HEMATOCRIT 32.2 % (42-52); MEAN CORPUSCULAR HGB 27.1 PG (27.0-31.0); MEAN CORPUSCULAR HGB CONC 31.4 G/DL (33.0-37.0); MEAN CORPUSCULAR VOLUME 86.3 FL (80.0-94.0); MEAN PLATELET VOLUME 10.9 FL (7.4-10.4); PLATELET COUNT 148 /CUMM (130-400); RBC DISTRIBUTION WIDTH 17.2 % (11.5-14.5); RED BLOOD CELL CT 3.73 /CUMM (4.70-6.10); WHITE BLOOD CELL COUNT 6.9 /CUMM (4.8-10.8)
--- NOTE | 2016-12-10 06:48 | Admission Certification ---
Admission Certification Certification Statement - As attending physician, I certify that at the time of - admission, based on clinical presentation, severity of - symptoms, need for further diagnostic testing and - therapeutic interventions, and risk of adverse outcomes - without in-hospital treatment, in my clinical assessment, - this patient requires an acute hospital stay for a minimum - of two nights or longer. I have also considered psychsocial - factors such as support system, advanced age, financial - issues, cognitive issues, and failed out-patient treatments, - past re-admission history, safety of patient, and lack of - compliance as applicable. Specific rationale supporting this admission is: Acute on chronic hypoxic respiratory failure in the setting of fluid overload, pleural effusion and community acquired pneumonia.
[2016-12-10 07:21] VITALS: BP 158/74
[2016-12-10 07:33] VITALS: BP 140/67
--- NOTE | 2016-12-10 07:40 | PN- Housestaff ---
HARRY MONTES,FARTUN 12/10/16 0740: Subjective Follow-up For: Shortness of breath Tele-Events Since Last Visit: No overnight telemetry events noted. Heart rate between 80s to 90s. Has been in sinus Subjective: Patient reports some chest tightness on the left side on and off which is new since yesterday. Has baseline shortness of breath which has not changed. Has orthopnea and PND at baseline and he mostly sleeps in a recliner. Denies chest pain, palpitations, dizziness. On home oxygen at 2 L. Currently on 3 L saturating more than 94% Review of Systems Constitutional: Reports: see HPI. Objective Last 24 Hrs of Vital Signs/I&O Vital Signs Date Time Temp Pulse Resp B/P Pulse O2 O2 Flow FiO2 Ox Delivery Rate 12/10 1024 97.9 97 22 168/84 94 Nasal 2.0L Cannula 12/10 1023 97.9 97 22 168/84 94 Nasal 2.0L Cannula 12/10 1022 168/84 12/10 0831 96 Nasal 3.0L Cannula 12/10 0813 96 Nasal 3.0L Cannula 12/10 0733 99.0 100 24 140/67 94 Nasal Cannula 12/10 0721 97.1 90 20 158/74 96 Nasal 3.0L Cannula 12/10 0708 97.1 92 20 158/74 96 Room Air 12/10 0635 97.1 93 20 154/72 95 Room Air 12/10 0443 97.0 91 18 136/75 94 Room Air 12/10 0440 Nasal 4.0L Cannula 12/10 0430 95 Room Air 4.0L 12/10 0150 92 16 130/63 93 Nasal 4.0L Cannula 12/10 0132 Nasal 2.0L Cannula 12/09 2335 96.3 113 24 137/74 91 Nasal 4.0L Cannula Intake & Output 12/10 1600 12/10 0800 12/10 0000 Intake Total 40 Output Total Balance 40 Intake, Oral 40 Patient 184 lb 184 lb Weight Physical Exam General Appearance: Alert, Oriented X3, Cooperative, No Acute Distress Skin: No Rashes HEENT: DRY MUCOUS MEMBRANE Neck: Supple, No JVD Cardiovascular: Regular Rate, Normal S1, Normal S2, No Murmurs Lungs: BILATERAL BASAL CRACKLES PRESENT, DIFFUSE MILD RHONCHI PRESENT Abdomen: Normal Bowel Sounds, Soft, No Tenderness Neurological: Normal Speech Extremities: TRACE PEDAL EDEMA PRESENT Current Medications: Current Medications Sig/Zoe Start time Last Medication Dose Route Stop Time Status Admin Acetaminophen 500 MG Q6P PRN 12/10 0400 AC PO Acetaminophen/ 0 .STK-MED ONE 12/10 0635 DC Hydrocodone Bitart PO Acetaminophen/ 1 TAB Q6P PRN 12/10 0400 AC 12/10 Hydrocodone [place]art PO 0635 Albuterol Sulfate 3 ML ONCE ONE 12/10 0445 DC 12/10 INH 12/10 0446 0440 Aspirin Buffered 81 MG DAILY 12/10 1000 AC 12/10 PO 1022 Atorvastatin Calcium 40 MG DAILY 12/10 1000 AC 12/10 PO 1022 Azithromycin 500 MG 2200 12/100 AC Sodium Chloride 250 ML IV Azithromycin 250 MG ONCE ONE 12/10 0015 DC 12/10 PO 12/10 0016 0130 Budesonide/ 2 PUF BID 12/10 1000 AC 12/10 Formoterol Fumarate INH 102 Ceftriaxone Sodium 1,000 MG 2200 12/10 2200 AC IV Ceftriaxone Sodium 0 .STK-MED ONE 12/10 0046 DC .ROUTE Ceftriaxone Sodium 1,000 MG ONCE ONE 12/10 0015 DC 12/10 IV 12/10 0016 0130 Escitalopram Oxalate 10 MG DAILY 12/10 1000 AC 12/10 PO 1022 Heparin Sodium 5,000 UNIT Q8 12/10 06 AC (Porcine) SC Ipratropium [place] 2.5 ML ONCE ONE 12/10 0445 DC 12/10 INH 12/10 044 0440 Methylprednisolone 0 .STK-MED ONE 12/10 0224 DC .ROUTE Methylprednisolone 125 MG ONCE ONE 12/10 0215 DC 12/10 IV 12/10 021 0226 Metoprolol Tartrate 50 MG BID 12/10 1000 AC 12/10 PO 1022 Omeprazole 0 .STK-MED ONE 12/10 0709 DC PO Omeprazole 40 MG DAILY AC 12/10 0700 AC 12/10 PO 0708 Oxycodone/ 0 .STK-MED ONE 12/10 0112 DC Acetaminophen PO Oxycodone/ 1 TAB ONCE ONE 12/10 0100 DC 12/10 Acetaminophen PO 12/10 0101 0112 Roflumilast 500 MCG DAILY 12/10 1000 AC 12/10 PO 1022 Last 24 Hrs of Lab/Jseus Results Last 24 Hrs of Labs/Mics: Laboratory Tests 12/10/16 0543: Anion Gap 21 H, Estimated GFR 6 L, BUN/Creatinine Ratio 9.4, Troponin I 0.10, CBC w Diff NO MAN DIFF REQ, RBC 3.73 L, MCV 86.3, MCH 27.1, RDW 17.2 H, MPV 10.9 H, Gran % 91.8 H, Lymphocytes % 5.9 L, Monocytes % 2.3, Eosinophils % 0, Basophils % 0 L, Absolute Granulocytes 6.3, Absolute Lymphocytes 0.4 L, Absolute Monocytes 0.2, Absolute Eosinophils 0, Absolute Basophils 0, PUBS MCHC 31.4 L 12/10/16 0018: Anion Gap 19 H, Estimated GFR 6 L, BUN/Creatinine Ratio 9.4, Glucose 91, Calcium 8.9, Total Bilirubin 1.2, AST 34, ALT 42, Alkaline Phosphatase 121, Troponin I 0.10, Jlq-M-Mugnhupyrmj Pept [id number] H, Total Protein 7.1, Albumin 3.9, Globulin 3.2, Albumin/Globulin Ratio 1.2, PT 15.6 H, INR 1.49 H, APTT 33, D-Dimer 901 H, CBC w Diff NO MAN DIFF REQ, RBC 3.78 L, MCV 86.1, MCH 27.0, RDW 16.9 H, MPV 11.6 H, Gran % 80.5 H, Lymphocytes % 8.4 L, Monocytes % 10.7 H, Eosinophils % 0, Basophils % 0.4, Absolute Granulocytes 7.0 H, Absolute Lymphocytes 0.7 L, Absolute Monocytes 0.9 H, Absolute Eosinophils 0, Absolute Basophils 0, PUBS MCHC 31.4 L Microbiology 12/10 07 LOWER RESP: Respiratory Culture - ORD 12/10 733 LOWER RESP: Gram Stain - ORD 12/10 010 BLOOD: Blood Culture - RECD 12/10 003 BLOOD: Blood Culture - RECD Assessment/Plan Assessment: 71-year-old male with past medical history of CAD/stents, COPD on home oxygen, presents to ED with c/o shortness of breath and chest tightness secondary to ? community-acquired pneumonia as seen in chest x-ray, but CAT scan showed some airspace disease with Small left pleural effusion with associated respiratory disease. 1. Acute on chronic hypoxic respiratory failure secondary to ?community- acquired pneumonia and fluid overload (history of mild decrease in systolic function with the last ejection fraction of 40% in September 2016) in the setting of end-stage renal disease -We will discontinue antibiotics at this time given no fever no white count and patient not producing any phlegm. -We'll continue with TRC nebulizes -Sputum cultures are pending. - Follow-up white count - Hold off on pulmonary consult for now. -Lymphadenopathy on CAT scan could be reactive because of pneumonia. He will needed repeat imaging as an outpatient follow up on the lymphadenopathy 2. Systolic congestive heart failure: - Patient does not appear to be in decompensated heart failure at this time -Previous echo in September 2016 showed ejection fraction of 40-45% -We'll plan for dialysis today -We'll continue his metoprolol aspirin and statins. - troponins have been negative with no EKG changes. 3. History of chronic hypoxic respiratory failure secondary to COPD on home oxygen - Does not look an exacerbation -we will continue his home medication 4. ESRD on hemodialysis -Currently on Saturday schedule -Nephrology consulted on plan for dialysis today 5. CAD status post setnts - we'll continue his aspirin statins and beta blockers 6. Obstructive sleep apnea CPAP at night DVT px with SC heparin FULL CODE Problem List: 1. Pneumonia 2. Saccular aneurysm 3. COPD (chronic obstructive pulmonary disease) Pain Ratin Pain Location: chest Pain Goal: Remain pain free Pain Plan: As mentioned Tomorrow's Labs & Rationales: Will need labs JUAN BUTCHER MD 12/10/16 1237: Attending MD Review Statement Attending Statement Attending MD Statement: examined this patient, discuss w/resident/PA/SOD FARMER, agreed w/resident/PA/SOD FARMER, reviewed EMR data (avail) Attending Assessment/Plan: Agree with resident assessment and plan. Will continue with dialysis, follow cardiology recommendations, obtain echocardiogram, rule out, continue home medications
--- NOTE | 2016-12-10 10:06 | Cons- Cardiology ---
CHAPARRITA MONTES,VIVIAN 12/10/16 0948: General Information and HPI Consulting Request Date of Consult: 12/10/16 Requested By: KELTON PITT MD Reason for Consult: DYSPNEA Source of Information: patient, family, old records Exam Limitations: no limitations History of Present Illness: Mr. Rodríguez is a 71-year-old gentleman with a history significant for ESRD (Saturday, Saturday, Saturday dialysis), coronary artery disease status post drug-eluting stent placement, hypertension, hyperlipidemia, pulmonary hypertension, saccular aneurysms of the descending thoracic aorta that presented to the emergency room yesterday evening for evaluation of dyspnea. He does have COPD and at baseline uses 2 L oxygen, his oxygen requirements did increase to 4 L over the course of last few days, 3 days ago he called his PCP Dr. Casillas with complaints of productive sputum and was started on a Z-John. He also complains of left lateral rib pain which has been going on over the past 3 days and states this is similar to what he experienced previously when he had developed pneumonia. He denies any overt chest pain, jaw pain, back pain or left arm or right arm pain. He states that he is compliant with his medication regiment, salt intake regiment and did in fact go for dialysis on Saturday. A cardiology consultation was requested secondary to his dyspnea and elevated proBNP. Allergies/Medications Allergies: Coded Allergies: venom-honey bee (bee venom (honey bee)) (Severe, ANAPHYLAXIS 12/09/16) Penicillins (Intermediate, RASH 12/09/16) Home Med List: Albuterol Sulfate 2.5 MG/3 ML VIAL.NEB 1 Vial INH/ROSALINDA Q4P COPD (Reported) Albuterol Sulfate (Proair Hfa) 8.5 GM HFA.AER.AD 2 PUF INH PRN COPD (Reported ) Aspirin (Lo-Dose Aspirin EC) 81 MG TABLET.DR 1 TAB PO DAILY HEART/BLOOD ( Reported) Atorvastatin Calcium 40 MG TABLET 1 TAB PO DAILY CHOLESTEROL (Reported) Budesonide/Formoterol Fumarate (Symbicort 160-4.5 Mcg Inhaler) 10.2 GM HFA.AER.AD 2 PUF INH BID COPD Calcium Acetate 667 MG TABLET 3 CAP PO WM KIDNEYS (Reported) Escitalopram Oxalate 10 MG TABLET 1 TAB PO DAILY ANXIETY (Reported) Ipratropium/Albuterol Sulfate (Combivent Respimat Inhal [place]) 4 GM MIST.INHAL 1 PUFF INH 4 TIMES/DAY COPD (Reported) Metoprolol Tartrate 50 MG TABLET 50 MG PO BID HTN Nephro-Vitamins (Nephro-Angie Tablet) 0.8 MG TABLET 1 TAB PO DAILY SUPPLEMENT (Reported) Oxycodone HCl/Acetaminophen (Oxycodone-Acetaminophen 10-325) 10 MG-325 MG TABLET 1 TAB PO TID PRN PAIN (Reported) Pantoprazole Sodium 40 MG TABLET.DR 1 TAB PO DAILY GI (Reported) Roflumilast (Daliresp) 500 MCG TABLET 1 TAB PO DAILY COPD (Reported) Review of Systems Review of Systems Constitutional: Reports: see HPI. Past History Travel History Traveled to [place] past 21 day No Medical History Neurological: NONE EENT: NONE Cardiovascular: CAD, hypertension, stents, severe pulmonary hypertension Respiratory: COPD, 2L O2 DEPENDANT, CPAP EACH NIGHT Gastrointestinal: NONE Hepatic: hepatic congestion, splenomegaly Renal: ESRD on HD, FISTULA ON L UPPER EXT Musculoskeletal: NONE Psychiatric: NONE Endocrine: diabetes Blood Disorders: myelodysplastic syndrome. Cancer(s): NONE BOARD SAW RUNNER/Reproductive: NONE Surgical History Surgical History: cholecystectomy, AV FISTULA LUE Family History Relations & Conditions If Any: FATHER (CKD on HD, CAD, [place], DM). MOTHER (CKD on HD, CAD, [place], DM). FATHER (CKD on Hemodialysis, CAD, DM). MOTHER (CKD on Hemodialysis, CAD, [place]). Psychosocial History Where Do You Live? Home Who Do You Live With? spouse Services at Home: Oxygen Primary Language: Turkish Smoking Status: Former Smoker ETOH Use: denies use Functional Ability ADLs Independent: eating, toileting. Needs Assist: bathing. Ambulation: independent ECHO Results (as available) Report: PATIENT: JAMES RODRÍGUEZ PRESENT AGE: 71 PATIENT ACCOUNT NO: [id number] : 45 LOCATION: [facility] ORDERING PHYSICIAN: SANDRA LIGHT MD SERVICE DATE: 09/17/16- EXAM TYPE: CARD - ECHOCARDIOGRAM JAMES RODRÍGUEZ Age: 71 : 1945 Gender: M Exam Date: 09/17/2016 16:35 Exam Location: [facility] Ht (in): 65 Wt (lb): 195 BSA: 2.05 BP: 154 / 90 Ordering Physician: SANDRA LIGHT MD Referring Physician: Kenn Maldonado MD Technologist: Puja Dewitt [facility] Room Number: 101 Indications: ARRHYTHMIAS Rhythm: Sinus Technical Quality: Fair, Technically difficult study FINDINGS Left Ventricle Normal size left ventricle. Mildly reduced global left ventricular systolic function. Mildly abnormal left ventricular ejection fraction estimated at 40-45%. Right Ventricle Right ventricle not well visualized, grossly normal. Right Atrium Normal right atrial size. Left Atrium Moderate left atrial dilatation. Mitral Valve Mild thickening/calcification of the anterior mitral valve leaflet. Moderate mitral annular calcification. Jozi-yr-gbambaqx mitral regurgitation. Aortic Valve Trileaflet aortic valve. Diffuse thickening of the aortic valve cusps with reduced excursion. Mild aortic stenosis. Tricuspid Valve Tricuspid valve not well visualized, grossly normal. Mild tricuspid regurgitation. Right ventricular systolic pressure estimated at 38 mmHg. Pulmonic Valve Pulmonic valve not well visualized, grossly normal. Pericardium No pericardial effusion. Great Vessels Aortic root and proximal ascending aorta not well visualized, grossly normal. CONCLUSIONS 1. This was a technically dificult examination. 2. Fibrocalcific degeneration is present in the aortic valve with mild valvular stenosis (PG 16 mmHg; MG 8 mmHg;JANIE 1.8 cm2). 3. Thickening and calcification of the mitral leaflets is present with moderate anular calcification and mild to moderate mitral insufficiency with moderate left atrial enlargement. 4. There is no significant pericardial fluid present. 5. The left ventricular chamber size is normal. There is global hypokinesia present which is worse in the inferior and apical segments. The ejection fraction is approximately 40-45%. Diastolic dysfunction is present. 6. The right heart structures are grossly normal but were not optimally assessed. Mild tricuspid insufficiency is present with no evidence of pulmonary hypertension. 7. Lipomatous atrial septal hypertrophy is present. 8. Since the prior study, the LV ejection fraction has decreased. Kenn Maldonado M.D. (Electronically Signed) Final Date: 17 September 2016 20:47 MEASUREMENTS (Male / Female) Normal Values 2D ECHO LV Diastolic Diameter PLAX 5.4 cm 4.2 - 5.9 / 3.9 - 5.3 cm LV Systolic Diameter PLAX 3.6 cm 2.1 - 4.0 cm LV Fractional Shortening PLAX 33.3 % 25 - 46 % LV Ejection Fraction 2D Teich 61.5 % IVS Diastolic Thickness 1.1 cm LVPW Diastolic Thickness 1.1 cm LV Relative Wall Thickness 0.4 RV Internal Dim ED PLAX 2.1 cm 1.9 - 3.8 cm LVOT Diameter 2.0 cm Aortic Root Diameter 3.4 cm LA Systolic Diameter LX 3.4 cm 3.0 - 4.0 / 2.7 - 3.8 cm LA Volume 67.0 cm 18 - 58 / 22 - 52 cm Ascending Aorta Diameter 3.4 cm DOPPLER AV Peak Velocity 209.0 cm/s AV Peak Gradient 17.5 mmHg AV Mean Velocity 141.0 cm/s AV Mean Gradient 9.0 mmHg AV Velocity Time Integral 37.3 cm LVOT Peak Velocity 111.0 cm/s LVOT Peak Gradient 4.9 mmHg LVOT Mean Velocity 74.2 cm/s LVOT Mean Gradient 3.0 mmHg LVOT Velocity Time Integral 21.7 cm LVOT Stroke Volume 68.2 cm AV Area Cont Eq vti 1.8 cm AV Area Cont Eq pk 1.7 cm MV Peak Velocity 125.0 cm/s MV Peak Gradient 6.3 mmHg MV Mean Velocity 78.2 cm/s MV Mean Gradient 3.0 mmHg Mitral E Point Velocity 102.0 cm/s Mitral A Point Velocity 115.0 cm/s Mitral E to A Ratio 0.9 MV PHT Velocity 117.0 cm/s MV Deceleration [place] 377.0 cm/s MV Pressure Half Time 93.1 ms MV Area PHT 2.4 cm MV Deceleration Time 320.0 ms TR Peak Velocity 289.0 cm/s TR Peak Gradient 33.4 mmHg Right Atrial Pressure 5.0 mmHg Pulmonary Artery Systolic Pressu 38.4 mmHg Right Ventricular Systolic Press 38.4 mmHg PV Peak Velocity 106.0 cm/s PV Peak Gradient 4.5 mmHg PV Mean Velocity 71.2 cm/s PV Mean Gradient 2.0 mmHg PV Velocity Time Integral 15.6 cm LV E' Lateral Velocity 4.8 cm/s Mitral E to LV E' Lateral Ratio 21.0 LV E' Septal Velocity 3.7 cm/s Mitral E to LV E' Septal Ratio 27.6 DICTATED BY: Anne MALDONADO MD DATE/TIME DICTATED:09/17/162046 MEDICAL BILLER:JANIE DATE/TIME TRANSCRIBED:09/17/162046 CONFIDENTIAL, DO NOT COPY WITHOUT APPROPRIATE AUTHORIZATION. <Electronically signed in Other Vendor System> SIGNED BY: Anne MALDONADO MD 09/17/162046 Exam & Diagnostic Data Vital Signs and I&O Vital Signs Date Time Temp Pulse Resp B/P Pulse O2 O2 Flow FiO2 Ox Delivery Rate 12/10 0831 96 Nasal 3.0L Cannula 12/10 0813 96 Nasal 3.0L Cannula 12/10 0733 99.0 100 24 140/67 94 Nasal Cannula 12/10 0721 97.1 90 20 158/74 96 Nasal 3.0L Cannula 12/10 0708 97.1 92 20 158/74 96 Room Air 12/10 0635 97.1 93 20 154/72 95 Room Air 12/10 0443 97.0 91 18 136/75 94 Room Air 12/10 0440 Nasal 4.0L Cannula 12/10 0430 95 Room Air 4.0L 12/10 0150 92 16 130/63 93 Nasal 4.0L Cannula 12/10 0132 Nasal 2.0L Cannula 12/09 2335 96.3 113 24 137/74 91 Nasal 4.0L Cannula Intake & Output 12/10 1600 12/10 0812/10 0000 12/09 1600 12/09 0812/09 0000 Intake Total 40 Output Total Balance 40 Intake, Oral 40 Patient 184 lb 184 lb Weight Physical Exam General Appearance: well developed/nourished, no apparent distress, alert, awake , comfortable Head: atraumatic, normal appearance Eyes: Bilateral: normal appearance, PERRL, EOMI. Neck: normal inspection, supple Respiratory: chest non-tender, decreased breath sounds b/l Cardiovascular: regular rate/rhythm Gastrointestinal: normal bowel sounds, soft, non-tender Back: normal inspection, normal range of motion Extremities: LUE dialysis fistula with thrill Labs/Jesus Results: Laboratory Tests 12/10 12/10 0543 0018 Chemistry Sodium (137 - 145 mmol/L) 135 L 134 L Potassium (3.5 - 5.1 mmol/L) 5.6 H 5.3 H Chloride (98 - 107 mmol/L) 92 L 92 L Carbon Dioxide (22 - 30 mmol/L) 22 23 Anion Gap (5 - 16) 21 H 19 H BUN (9 - 20 mg/dL) 85 H 81 H Creatinine (0.7 - 1.2 mg/dL) 9.0 *H 8.6 *H Estimated GFR (>60 ml/min) 6 L 6 L BUN/Creatinine Ratio (7 - 25 %) 9.4 9.4 Glucose (65 - 99 mg/dL) 91 Calcium (8.4 - 10.2 mg/dL) 8.9 Total Bilirubin (0.2 - 1.3 mg/dL) 1.2 AST (17 - 59 U/L) 34 ALT (21 - 72 U/L) 42 Alkaline Phosphatase (< 127 U/L) 121 Troponin I (<0.11 ng/ml) 0.10 0.10 Fvd-O-Emhzgaazxsh Pept (<125 pg/mL) [id number] H Total Protein (6.3 - 8.2 g/dL) 7.1 Albumin (3.5 - 5.0 g/dL) 3.9 Globulin (1.9 - 4.2 gm/dL) 3.2 Albumin/Globulin Ratio (1.1 - 2.2 %) 1.2 Coagulation PT (9.4 - 12.5 SEC) 15.6 H INR (0.90 - 1.17) 1.49 H APTT (25 - 37 SEC) 33 D-Dimer (70 - 232 ng/ml) 901 H Hematology CBC w Diff NO MAN DIFF REQ NO MAN DIFF REQ WBC (4.8 - 10.8 /CUMM) 6.9 8.7 RBC (4.70 - 6.10 /CUMM) 3.73 L 3.78 L Hgb (14.0 - 18.0 G/DL) 10.1 L 10.2 L Hct (42 - 52 %) 32.2 L 32.5 L MCV (80.0 - 94.0 FL) 86.3 86.1 MCH (27.0 - 31.0 PG) 27.1 27.0 RDW (11.5 - 14.5 %) 17.2 H 16.9 H Plt Count (130 - 400 /CUMM) 148 174 MPV (7.4 - 10.4 FL) 10.9 H 11.6 H Gran % (42.2 - 75.2 %) 91.8 H 80.5 H Lymphocytes % (20.5 - 51.1 %) 5.9 L 8.4 L Monocytes % (1.7 - 9.3 %) 2.3 10.7 H Eosinophils % (0 - 5 %) 0 0 Basophils % (0.0 - 2.0 %) 0 L 0.4 Absolute Granulocytes (1.4 - 6.5 /CUMM) 6.3 7.0 H Absolute Lymphocytes (1.2 - 3.4 /CUMM) 0.4 L 0.7 L Absolute Monocytes (0.10 - 0.60 /CUMM) 0.2 0.9 H Absolute Eosinophils (0.0 - 0.7 /CUMM) 0 0 Absolute Basophils (0.0 - 0.2 /CUMM) 0 0 PUBS MCHC (33.0 - 37.0 G/DL) 31.4 L 31.4 L Diagnostic Data EKG Results Rate 100, NC 188, QRS 100, QTC 480 Sinus tachycardia, left axis deviation, no acute ST to T wave changes CXR Results PATIENT: JAMES RODRÍGUEZ PRESENT AGE: 71 PATIENT ACCOUNT NO: [id number] : 45 LOCATION: ER ORDERING PHYSICIAN: JAQUELINE HINOJOSA MD SERVICE DATE: 12/09/16 EXAM TYPE: RAD - XRY-PORTABLE CHEST XRAY EXAMINATION: CHEST 1 VIEW CLINICAL INFORMATION: Chest pain. COMPARISON: 09/18/2016. TECHNIQUE: An AP view of the chest is provided. FINDINGS: The cardiac silhouette is enlarged, but stable. There is interstitial prominence, increased from prior exam. There is patchy opacification within the lateral right lung base. A vascular stents overlying the left axilla is again identified. The osseous structures are stable. IMPRESSION: Stable cardiomegaly with interval increase in interstitial prominence likely customer engagement representative of vascular congestion. Small focus of wedge-shaped opacification at the lateral right lung base which likely corresponds to airspace disease with a possible small right pleural effusion. DICTATED BY: BRUCE WEIR MD DATE/TIME DICTATED:12/10/1645 MEDICAL BILLER:JANIE DATE/TIME TRANSCRIBED:12/10/1645 CONFIDENTIAL, DO NOT COPY WITHOUT APPROPRIATE AUTHORIZATION. <Electronically signed in Other Vendor System> SIGNED BY: BRUCE WEIR MD 12/10/16 005 Other Results PATIENT: JAMES RODRÍGUEZ PRESENT AGE: 71 PATIENT ACCOUNT NO: [id number] : 45 LOCATION: [facility] ORDERING PHYSICIAN: JAQUELINE HINOJOSA MD SERVICE DATE: 12/10/169 EXAM TYPE: CAT - CTA CHEST-PULMONARY EMBOLISM EXAMINATION: CT PULMONARY EMBOLISM STUDY CLINICAL INFORMATION: Dyspnea. Positive d-dimer. COMPARISON: 09/15/2016. TECHNIQUE: Contiguous helical images of the chest were obtained following the administration of IV contrast. Multiplanar reconstructions were performed. MIPS were obtained and reviewed. DLP: 553 mGy-cm. CONTRAST: 80 mL of Optiray 350 were administered without incident. FINDINGS: The heart is of normal size. There is no pericardial effusion. Again identified are several mediastinal lymph nodes, increased in size from prior exam. There is a superior right paratracheal lymph node on image 81/570 measuring approximately 2.0 x 1.0 cm. There is a lower pretracheal lymph node measuring approximately 1.5 x 1.4 cm. There is a lower right paratracheal conglomeration of lymph nodes measuring approximately 3.2 x 1.7 cm. No pulmonary arterial filling defects are identified. Again identified is diffuse atherosclerotic disease within the thoracic aorta with multiple saccular aneurysms, not significantly changed from prior exam. There is no CT evidence for pulmonary embolism. There are no chest wall masses. There is a moderate right pleural effusion and a small left pleural effusion. There is associated airspace disease at the right lung base. There is mild atelectasis at the left lung base. There is biapical emphysema. There is bilateral multifocal bronchiectasis. Limited evaluation of the upper abdomen demonstrates that the liver is of normal size and attenuation without focal lesions. Normal adrenal glands are identified. There is intrahepatic biliary gas present, similar to prior studies and likely iatrogenic. The patient is status post cholecystectomy. IMPRESSION: No CT evidence for pulmonary embolism. Stable atherosclerotic disease with multiple small saccular aneurysms within the thoracic aorta. Moderate right and small left pleural effusions with associated airspace disease. Emphysema. Interval increase in size in multiple mediastinal lymph nodes. The largest is a lower right paratracheal lymph node. Correlate with patient history. Consider correlation with PET/CT for further characterization. DICTATED BY: BRUCE WEIR MD DATE/TIME DICTATED:12/10/16256 MEDICAL BILLER:JANIE DATE/TIME TRANSCRIBED:12/10/16256 CONFIDENTIAL, DO NOT COPY WITHOUT APPROPRIATE AUTHORIZATION. <Electronically signed in Other Vendor System> SIGNED BY: BRUCE WEIR MD 12/10/16 0328 Assessment/Plan Assessment/Plan Assessment- 1. Systolic HF, chronic 2. Dyspnea 2/2 URI vs developing PNA vs Volume overload 3. ESRD on HD 4. CAD s/p stent placement 5. Saccular aneursyms of the descending thracic aorta 6. Left sided lateral rib pain, troponins X 2 have both been 0.10 7. Chronic anemia, likely 2/2 ESRD His dyspnea is multifactorial- 2/2 volume overload, underlying COPD, pulmonary effusion and likely developing PNA Plan- - Nephro consult appreciated, needs HD today - Consider Pulmonary evaluation - Continue Abx per primary team - Assess volume and respiratory status s/p HD - Repeat CXR in AM, if effusions are worse and respiratory status does not improve, consider diagnostic and therapeutic thoracentesis - Trend troponins till they peak - Check thyroid studies - Continue ASA, Statin, Beta joshua - Obtain Echocardiogram Consult Acknowledgment - Thank you for your consult request. ERICA MONTES,BRUCE Rae 12/10/16 1230: Assessment/Plan Assessment/Plan Attending addendum: The patient was seen and examined by me and all available data including ECGs were reviewed. I agree with the plan as outlined above. Consult Acknowledgment - Thank you for your consult request.
[2016-12-10 10:24] VITALS: BP 168/84
--- NOTE | 2016-12-10 11:50 | Cons- Nephrology ---
General Information and HPI Consulting Request Date of Consult: 12/10/16 Requested By: YOANDY MONTES,KELTON Reason for Consult: Dilation and management of end-stage renal disease Source of Information: patient, family, old records Exam Limitations: no limitations History of Present Illness: This 71-year-old gentleman has a history of end-stage renal disease and is on dialysis each Saturday and Saturday. Allergies/Medications Allergies: Coded Allergies: venom-honey bee (bee venom (honey bee)) (Severe, ANAPHYLAXIS 12/09/16) Penicillins (Intermediate, RASH 12/09/16) Home Med List: Albuterol Sulfate 2.5 MG/3 ML VIAL.NEB 1 Vial INH/ROSALINDA Q4P COPD (Reported) Albuterol Sulfate (Proair Hfa) 8.5 GM HFA.AER.AD 2 PUF INH PRN COPD (Reported ) Aspirin (Lo-Dose Aspirin EC) 81 MG TABLET.DR 1 TAB PO DAILY HEART/BLOOD ( Reported) Atorvastatin Calcium 40 MG TABLET 1 TAB PO DAILY CHOLESTEROL (Reported) Budesonide/Formoterol Fumarate (Symbicort 160-4.5 Mcg Inhaler) 10.2 GM HFA.AER.AD 2 PUF INH BID COPD Calcium Acetate 667 MG TABLET 3 CAP PO WM KIDNEYS (Reported) Escitalopram Oxalate 10 MG TABLET 1 TAB PO DAILY ANXIETY (Reported) Ipratropium/Albuterol Sulfate (Combivent Respimat Inhal [place]) 4 GM MIST.INHAL 1 PUFF INH 4 TIMES/DAY COPD (Reported) Metoprolol Tartrate 50 MG TABLET 50 MG PO BID HTN Nephro-Vitamins (Nephro-Angie Tablet) 0.8 MG TABLET 1 TAB PO DAILY SUPPLEMENT (Reported) Oxycodone HCl/Acetaminophen (Oxycodone-Acetaminophen 10-325) 10 MG-325 MG TABLET 1 TAB PO TID PRN PAIN (Reported) Pantoprazole Sodium 40 MG TABLET.DR 1 TAB PO DAILY GI (Reported) Roflumilast (Daliresp) 500 MCG TABLET 1 TAB PO DAILY COPD (Reported) Review of Systems Review of Systems Constitutional: Reports: chills, fever, malaise, unexplained weight loss. EENTM: Denies: blurred vision, double vision. Respiratory: Reports: orthopnea, short of breath, sputum production. GI: Denies: bloating, diarrhea, distention, bowel incontinence. Musculoskeletal: Denies: joint pain, joint swelling, muscle pain. Skin: Reports: no symptoms. Neurological/Psychological: Denies: anxiety, ataxia, cognitive dysfunction, confusion. Hematologic/Endocrine: Denies: bruising, bleeding. Past History Travel History Traveled to [place] past 21 day No Medical History Neurological: NONE EENT: NONE Cardiovascular: CAD, hypertension, stents, severe pulmonary hypertension Respiratory: COPD, obstructive sleep apnea, 2L O2 DEPENDANT, CPAP EACH NIGHT Gastrointestinal: GERD, passive congestion of the liver, GI bleed. Hepatic: hepatic congestion, splenomegaly Renal: benign prost hyperplasia, ESRD on HD, FISTULA ON L UPPER EXT Musculoskeletal: NONE Psychiatric: NONE Endocrine: diabetes Blood Disorders: myelodysplastic syndrome. 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 MOTHER (CKD on HD, CAD, ND, DM). FATHER (CKD on Hemodialysis, CAD, DM). MOTHER (CKD on Hemodialysis, CAD, ND). Psychosocial History Where Do You Live? Home Who Do You Live With? spouse Services at Home: Oxygen Primary Language: Canadian Smoking Status: Former Smoker ETOH Use: denies use Functional Ability ADLs Independent: eating, toileting. Needs Assist: bathing. Ambulation: independent Exam & Diagnostic Data Vital Signs and I&O Vital Signs Date Time Temp Pulse Resp B/P Pulse O2 O2 Flow FiO2 Ox Delivery Rate 12/10 1024 97.9 97 22 168/84 94 Nasal 2.0L Cannula 12/10 1023 97.9 97 22 168/84 94 Nasal 2.0L Cannula 12/10 1022 168/84 12/10 0831 96 Nasal 3.0L Cannula 12/10 0813 96 Nasal 3.0L Cannula 12/10 0733 99.0 100 24 140/67 94 Nasal Cannula 12/10 0721 97.1 90 20 158/74 96 Nasal 3.0L Cannula 12/10 0708 97.1 92 20 158/74 96 Room Air 12/10 0635 97.1 93 20 154/72 95 Room Air 12/10 0443 97.0 91 18 136/75 94 Room Air 12/10 0440 Nasal 4.0L Cannula 12/10 0430 95 Room Air 4.0L 12/10 0150 92 16 130/63 93 Nasal 4.0L Cannula 12/10 0132 Nasal 2.0L Cannula 12/09 2335 96.3 113 24 137/74 91 Nasal 4.0L Cannula Intake & Output 12/10 Intake Total 40 Output Total Balance 40 Intake, Oral 40 Patient 184 lb 184 lb Weight Physical Exam General Appearance: well developed/nourished, mild distress Head: atraumatic, normal appearance Eyes: Bilateral: PERRL, EOMI, pale conjunctivae. 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 tested, no gross neurological deficits Cranial Nerves: normal hearing, normal speech, PERRL Skin: warm/dry, LE edema Results Pertinent Lab Results: Laboratory Tests 12/10 12/10 0543 0018 Chemistry Sodium (137 - 145 mmol/L) 135 L 134 L Potassium (3.5 - 5.1 mmol/L) 5.6 H 5.3 H Chloride (98 - 107 mmol/L) 92 L 92 L Carbon Dioxide (22 - 30 mmol/L) 22 23 Anion Gap (5 - 16) 21 H 19 H BUN (9 - 20 mg/dL) 85 H 81 H Creatinine (0.7 - 1.2 mg/dL) 9.0 *H 8.6 *H Estimated GFR (>60 ml/min) 6 L 6 L BUN/Creatinine Ratio (7 - 25 %) 9.4 9.4 Glucose (65 - 99 mg/dL) 91 Calcium (8.4 - 10.2 mg/dL) 8.9 Total Bilirubin (0.2 - 1.3 mg/dL) 1.2 AST (17 - 59 U/L) 34 ALT (21 - 72 U/L) 42 Alkaline Phosphatase (< 127 U/L) 121 Troponin I (<0.11 ng/ml) 0.10 0.10 Dep-U-Ahknbvooqlj Pept (<125 pg/mL) 428733 H Total Protein (6.3 - 8.2 g/dL) 7.1 Albumin (3.5 - 5.0 g/dL) 3.9 Globulin (1.9 - 4.2 gm/dL) 3.2 Albumin/Globulin Ratio (1.1 - 2.2 %) 1.2 Coagulation PT (9.4 - 12.5 SEC) 15.6 H INR (0.90 - 1.17) 1.49 H APTT (25 - 37 SEC) 33 D-Dimer (70 - 232 ng/ml) 901 H Hematology CBC w Diff NO MAN DIFF REQ NO MAN DIFF REQ WBC (4.8 - 10.8 /CUMM) 6.9 8.7 RBC (4.70 - 6.10 /CUMM) 3.73 L 3.78 L Hgb (14.0 - 18.0 G/DL) 10.1 L 10.2 L Hct (42 - 52 %) 32.2 L 32.5 L MCV (80.0 - 94.0 FL) 86.3 86.1 MCH (27.0 - 31.0 PG) 27.1 27.0 RDW (11.5 - 14.5 %) 17.2 H 16.9 H Plt Count (130 - 400 /CUMM) 148 174 MPV (7.4 - 10.4 FL) 10.9 H 11.6 H Gran % (42.2 - 75.2 %) 91.8 H 80.5 H Lymphocytes % (20.5 - 51.1 %) 5.9 L 8.4 L Monocytes % (1.7 - 9.3 %) 2.3 10.7 H Eosinophils % (0 - 5 %) 0 0 Basophils % (0.0 - 2.0 %) 0 L 0.4 Absolute Granulocytes (1.4 - 6.5 /CUMM) 6.3 7.0 H Absolute Lymphocytes (1.2 - 3.4 /CUMM) 0.4 L 0.7 L Absolute Monocytes (0.10 - 0.60 /CUMM) 0.2 0.9 H Absolute Eosinophils (0.0 - 0.7 /CUMM) 0 0 Absolute Basophils (0.0 - 0.2 /CUMM) 0 0 PUBS MCHC (33.0 - 37.0 G/DL) 31.4 L 31.4 L Imaging/Other Studies: PATIENT: JAMES NELSON PRESENT AGE: 71 PATIENT ACCOUNT NO: [id number] : 45 LOCATION: [facility] ORDERING PHYSICIAN: JAQUELINE HINOJOSA MD SERVICE DATE: 12/10/160159 EXAM TYPE: CAT - CTA CHEST-PULMONARY EMBOLISM EXAMINATION: CT PULMONARY EMBOLISM STUDY CLINICAL INFORMATION: Dyspnea. Positive d-dimer. COMPARISON: 09/15/2016. TECHNIQUE: Contiguous helical images of the chest were obtained following the administration of IV contrast. Multiplanar reconstructions were performed. MIPS were obtained and reviewed. DLP: 553 mGy-cm. CONTRAST: 80 mL of Optiray 350 were administered without incident. FINDINGS: The heart is of normal size. There is no pericardial effusion. Again identified are several mediastinal lymph nodes, increased in size from prior exam. There is a superior right paratracheal lymph node on image 81/570 measuring approximately 2.0 x 1.0 cm. There is a lower pretracheal lymph node measuring approximately 1.5 x 1.4 cm. There is a lower right paratracheal conglomeration of lymph nodes measuring approximately 3.2 x 1.7 cm. No pulmonary arterial filling defects are identified. Again identified is diffuse atherosclerotic disease within the thoracic aorta with multiple saccular aneurysms, not significantly changed from prior exam. There is no CT evidence for pulmonary embolism. There are no chest wall masses. There is a moderate right pleural effusion and a small left pleural effusion. There is associated airspace disease at the right lung base. There is mild atelectasis at the left lung base. There is biapical emphysema. There is bilateral multifocal bronchiectasis. Limited evaluation of the upper abdomen demonstrates that the liver is of normal size and attenuation without focal lesions. Normal adrenal glands are identified. There is intrahepatic biliary gas present, similar to prior studies and likely iatrogenic. The patient is status post cholecystectomy. IMPRESSION: No CT evidence for pulmonary embolism. Stable atherosclerotic disease with multiple small saccular aneurysms within the thoracic aorta. Moderate right and small left pleural effusions with associated airspace disease. Emphysema. Interval increase in size in multiple mediastinal lymph nodes. The largest is a lower right paratracheal lymph node. Correlate with patient history. Consider correlation with PET/CT for further characterization. DICTATED BY: BRUCE WEIR MD DATE/TIME DICTATED:12/10/16256 MAINTENANCE SUPERVISOR 2ND SHIFT:JANIE DATE/TIME TRANSCRIBED:12/10/16256 CONFIDENTIAL, DO NOT COPY WITHOUT APPROPRIATE AUTHORIZATION. <Electronically signed in Other Vendor System> SIGNED BY: BURCE WEIR MD 12/10/16 0328 PATIENT: JAMES NELSON PRESENT AGE: 71 PATIENT ACCOUNT NO: [id number] : 45 LOCATION: [facility] ORDERING PHYSICIAN: JAQUELINE HINOJOSA MD SERVICE DATE: 12/09/16 EXAM TYPE: RAD - XRY-PORTABLE CHEST XRAY EXAMINATION: CHEST 1 VIEW CLINICAL INFORMATION: Chest pain. COMPARISON: 09/18/2016. TECHNIQUE: An AP view of the chest is provided. FINDINGS: The cardiac silhouette is enlarged, but stable. There is interstitial prominence, increased from prior exam. There is patchy opacification within the lateral right lung base. A vascular stents overlying the left axilla is again identified. The osseous structures are stable. 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 Small focus of wedge-shaped opacification at the lateral right lung base which likely corresponds to airspace disease with a possible small right pleural effusion. DICTATED BY: BRUCE WEIR MD DATE/TIME DICTATED:12/10/1645 MAINTENANCE SUPERVISOR 2ND SHIFT:JANIE DATE/TIME TRANSCRIBED:12/10/1645 CONFIDENTIAL, DO NOT COPY WITHOUT APPROPRIATE AUTHORIZATION. <Electronically signed in Other Vendor System> SIGNED BY: BRUCE WEIR MD 12/10/16 005 Assessment/Plan Assessment/Recommendations Assessment: 1. ESRD CKD V-oh plan on hemodialysis today. We'll also plan 3-3.5 L ultrafiltration. His daughter is rightly concerned that he has not been eating. He does have lower extremity edema. According to his daughter, the patient's appetite has been poor for the past 2-3 weeks. 2. COPD-in the past this is caused his needing to be hospitalized with shortness of breath. 3. pneumonia-has an airspace density on chest x-ray in the right lower lobe. 4. Anemia 5. HTN Recommendations: 1. IHD today 2. 3L UF 3. Continue EPO 4. Will consider another treatment tomorrow depending on symptoms for possible ultrafiltration.
[2016-12-10 16:57] VITALS: BP 160/74
[2016-12-11 00:05] VITALS: BP 126/58
[2016-12-11 07:46] VITALS: BP 155/76
[2016-12-11 07:50] LABS: ABSOLUTE BASOPHIL COUNT 0 /CUMM (0.0-0.2); ABSOLUTE EOSINOPHIL COUNT 0 /CUMM (0.0-0.7); ABSOLUTE GRANULOCYTE CT 5.4 /CUMM (1.4-6.5); ABSOLUTE LYMPH COUNT 0.4 /CUMM (1.2-3.4); ABSOLUTE MONOCYTE COUNT 0.6 /CUMM (0.10-0.60); BASOPHIL % 0 % (0.0-2.0); EOSINOPHIL % 0.1 % (0-5); GRANULOCYTE % 84.7 % (42.2-75.2); HEMATOCRIT 32.8 % (42-52); MEAN CORPUSCULAR HGB CONC 31.3 G/DL (33.0-37.0); MEAN CORPUSCULAR VOLUME 86.5 FL (80.0-94.0); MEAN PLATELET VOLUME 11.4 FL (7.4-10.4); PLATELET COUNT 154 /CUMM (130-400); RBC DISTRIBUTION WIDTH 17.5 % (11.5-14.5); RED BLOOD CELL CT 3.79 /CUMM (4.70-6.10)
[2016-12-11 08:40] LABS: WHITE BLOOD CELL COUNT 6.4 /CUMM (4.8-10.8)
--- NOTE | 2016-12-11 08:51 | PN- Housestaff ---
HARRY MONTES,FARTUN 12/11/16 0851: Subjective Follow-up For: Was then shortness of breath secondary to COPD exacerbation/ fluid overload Tele-Events Since Last Visit: Heart rate between 90s to 100, normal sinus rhythm, no overnight events reported Subjective: Patient reports he is feeling short of breath on minimal exertion. Also producing copious amount of phlegm which is greenish in color. Denies fever, chills, chest pains, palpitations. Has some orthopnea at baseline which hasn't changed from past Review of Systems Constitutional: Reports: see HPI. Objective Last 24 Hrs of Vital Signs/I&O Vital Signs Date Time Temp Pulse Resp B/P Pulse O2 O2 Flow FiO2 Ox Delivery Rate 12/11 0825 97 155/76 12/11 0752 97 Nasal 3.0L Cannula 12/11 0746 98.0 92 18 155/76 97 Nasal 3.0L Cannula 12/11 0324 98 Nasal 3.0L Cannula 12/11 0005 97.9 81 20 126/58 91 CPAP 12/11 0000 CPAP 3.0L 12/10 2137 96 148/70 12/10 1657 97.6 90 20 160/74 100 Nasal 3.0L Cannula 12/10 1645 89 Nasal 2.0L Cannula 12/10 1621 Nasal 3.0L Cannula 12/10 1600 Nasal 3.0L Cannula Intake & Output 12/11 1600 12/11 0800 12/11 0000 Intake Total 100 480 Output Total 3500 Balance 100 -3020 Intake, IV 0 Intake, Oral 100 480 Number 0 Bowel Movements Output, 3500 Dialysate Patient 167 lb 169 lb Weight Physical Exam General Appearance: Alert, Oriented X3, Cooperative, No Acute Distress Skin: No Rashes Cardiovascular: Regular Rate, Normal S1, Normal S2, No Murmurs Lungs: bilateral diffuse expiratory wheezing present Abdomen: Normal Bowel Sounds, Soft, No Tenderness Neurological: Normal Speech Extremities: No Clubbing, No Cyanosis, No Edema Current Medications: Current Medications Sig/Zoe Start time Last Medication Dose Route Stop Time Status Admin Acetaminophen 500 MG Q6P PRN 12/10 0400 AC PO Acetaminophen/ 1 TAB Q6P PRN 12/10 0400 AC 12/10 Hydrocodone Bitart PO 1702 Albuterol Sulfate 3 ML EVERY 4 HRS/AWAKE 12/11 1999 AC 12/11 INH 1116 Aspirin Buffered 81 MG DAILY 12/10 1000 AC 12/11 PO 0824 Atorvastatin Calcium 40 MG DAILY 12/10 1000 AC 12/11 PO 0824 Azithromycin 500 MG DAILY 12/11 1000 AC 12/11 Sodium Chloride 250 ML IV 1019 Budesonide/ 2 PUF BID 12/10 1000 AC 12/11 Formoterol Fumarate INH 0826 Docusate Sodium 100 MG DAILY NEEDED PRN 12/10 2345 AC PO Epoetin Ryan 10,000 UNIT Saturday .. 12/10 1300 AC IV Escitalopram Oxalate 10 MG DAILY 12/10 1000 AC 12/10 PO 1022 Heparin Sodium 5,000 UNIT Q8 12/10 0600 AC 12/11 (Porcine) SC 0551 Ipratropium [place] 2.5 ML EVERY 4 HRS/AWAKE 12/10 2000 AC 12/11 INH 1116 Methylprednisolone 40 MG Q8 12/11 0928 AC IV Metoprolol Tartrate 50 MG BID 12/10 1000 AC 12/11 PO 0825 Omeprazole 40 MG DAILY AC 12/10 0700 AC 12/11 PO 0551 Paricalcitol 4 MCG Saturday .. 12/12 1000 AC IV Roflumilast 500 MCG DAILY 12/10 1000 AC 12/11 PO 0827 Senna 187 MG AT BEDTIME 12/11 2200 AC PO Last 24 Hrs of Lab/Jesus Results Last 24 Hrs of Labs/Mics: Laboratory Tests 12/11/16 0630: Anion Gap 19 H, Estimated GFR 9 L, BUN/Creatinine Ratio 10.0, CBC w Diff NO MAN DIFF REQ, RBC 3.79 L, MCV 86.5, MCH 27.0, RDW 17.5 H, MPV 11.4 H, Gran % 84.7 H, Lymphocytes % 6.3 L, Monocytes % 8.9, Eosinophils % 0.1, Basophils % 0 L, Absolute Granulocytes 5.4, Absolute Lymphocytes 0.4 L, Absolute Monocytes 0.6, Absolute Eosinophils 0, Absolute Basophils 0, PUBS MCHC 31.3 L Microbiology 12/11 1125 LOWER RESP: Respiratory Culture - RES 12/11 112 LOWER RESP: Gram Stain - RES Assessment/Plan Assessment: 71-year-old male with past medical history of CAD/stents, COPD on home oxygen, presents to ED with c/o shortness of breath and chest tightness secondary to ? community-acquired pneumonia as seen in chest x-ray, but CAT scan showed some airspace disease with Small left pleural effusion with associated respiratory disease. He was started on ceftriaxone and azithromycin for community-acquired pneumonia in the ED. 1. Acute on chronic hypoxic respiratory failure secondary to COPD exacerbation along with some fluid overload (history of mild decrease in systolic function with the last ejection fraction of 40% in September 2016) in the setting of end- stage renal disease -Antibiotics discontinued yesterday. -We'll start him on IV Solu-Medrol 40 every 8 and taper depending on improvement. We will also start him on azithromycin IV. Day 2 today. Will complete a total days of course for 5 days for bronchitis. -We'll continue with TRC nebulizes -Sputum Gram stain shows few WBCs and no organisms seen. Final cultures pending. - - blood cultures negative. -WBC within normal limits since admission - Hold off on pulmonary consult for now. -Lymphadenopathy on CAT scan could be reactive because of pneumonia. He will needed repeat imaging as an outpatient follow up on the lymphadenopathy 2. Systolic congestive heart failure: - Patient does not appear to be in decompensated heart failure at this time -Previous echo in September 2016 showed ejection fraction of 40-45% - He does not make urine, and dialysis dependent for congestive heart failure -Follows Saturday schedule for dialysis -We'll continue his metoprolol aspirin and statins. - troponins have been negative with no EKG changes - Per cardiology patient can be off telemetry as it is no evidence of decompensated heart failure. 3. Chronic hypoxic respiratory failure secondary to COPD on home oxygen -we will continue his home medication 4. ESRD on hemodialysis -Currently on Saturday schedule -Nephrology on board 5. CAD status post setnts - we'll continue his aspirin statins and beta blockers 6. Obstructive sleep apnea CPAP at night DVT px with SC heparin FULL CODE Problem List: 1. COPD (chronic obstructive pulmonary disease) 2. Volume overload 3. ESRD (end stage renal disease) Pain Ratin Pain Location: as discussed Pain Goal: Remain pain free Pain Plan: As mentioned Tomorrow's Labs & Rationales: Will need follow up labs after dialysis JUAN BUTCHER MD 12/11/16 1126: Attending Review Statement Attending Statement Attending Statement: examined this patient, discuss w/resident/PA/BOUNTY TRAPPER, agreed w/resident/PA/BOUNTY TRAPPER, reviewed EMR data (avail) Attending Assessment/Plan: Patient still short of breath and wheezing. No evidence of fluid overload, more likely acute exacerbation of COPD. Can discontinue telemetry and transfer to general medicine floor. Will cotninue Solumedrol 40mg q8h, nebulizer treatments , Azithromycin, continue home PO Lasix, follow nephrology recommendations for dialysis, continue home medications, DVT PPx
--- NOTE | 2016-12-11 10:44 | PN- Nephrology ---
Assessment/Plan Assessment: ESRD - Poor PO intake over last couple of weeks - not entirely clear why. Dialysis clearance had been fine prior to that. Likely has lost fat/muscle so that when he brought down to his "dry weight," he is left "volume overloaded." He tolerated dialysis well yesterday and looks like he was brought down significantly below his EDW. Looks pretty good on exam today. Will perform additional session today. Will need adjustment of his EDW on discharge. Anemia - Hg at goal. Gets high dose Epogen which will need to be continued here. 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 Suggestion: -Repeat dialysis session today - abbreviated sesion for ultrafiltration - 1-2L as tolerated -Routine dialysis tomorrow -Daily standing weights -Epogen 10,000U TIW with dialysis -Paricalcitol 4mcg TIW Please call [phone] with ?'s Subjective Subjective: Pt feeling much better after dialysis today Weight 167lbs this AM (15lb discrepancy in scale weight yesterday) - 75.8kg (EDW as outpatient 83.5kg Feeling much better In discussing with family - really just has not been eating for last couple of weeks Objective Vital Signs and I&Os Vital Signs Date Time Temp Pulse Resp B/P Pulse O2 O2 Flow FiO2 Ox Delivery Rate 12/11 0825 97 155/76 12/11 0752 97 Nasal 3.0L Cannula 12/11 0746 98.0 92 18 155/76 97 Nasal 3.0L Cannula 12/11 0324 98 Nasal 3.0L Cannula 12/11 0005 97.9 81 20 126/58 91 CPAP 12/11 0000 CPAP 3.0L 12/10 2137 96 148/70 12/10 1657 97.6 90 20 160/74 100 Nasal 3.0L Cannula 12/10 1645 89 Nasal 2.0L Cannula 12/10 1621 Nasal 3.0L Cannula 12/10 1600 Nasal 3.0L Cannula Intake & Output 12/11 1600 12/11 0400 12/10 1600 12/10 0400 12/09 1600 12/09 0400 Intake Total 100 480 40 Output Total 3500 Balance 100 -3020 40 Intake, IV 0 Intake, Oral 100 480 40 Number 0 Bowel Movements Output, 3500 Dialysate Patient 167 lb 169 lb 184 lb 184 lb Weight Physical Exam: Gen - NAD HEENT - supple CV - RRR Chest - RLL rhonchi Abd - soft, nontender Ext - no significant edema Neuro - AOX3 Access - DHRUV AVF +thrill Current Medications: Current Medications Sig/Zoe Start time Last Medication Dose Route Stop Time Status Admin Acetaminophen 500 MG Q6P PRN 12/10 0400 AC PO Acetaminophen/ 1 TAB Q6P PRN 12/10 0400 AC 12/10 Hydrocodone Bitart PO 1702 Albuterol Sulfate 3 ML EVERY 4 HRS/AWAKE 12/11 1999 AC 12/11 INH 0750 Aspirin Buffered 81 MG DAILY 12/10 1000 AC 12/11 PO 0824 Atorvastatin Calcium 40 MG DAILY 12/10 1000 AC 12/11 PO 0824 Azithromycin 500 MG DAILY 12/11 1000 AC 12/11 Sodium Chloride 250 ML IV 1019 Azithromycin 500 MG 22012/10 220 CAN Sodium Chloride 250 ML IV Budesonide/ 2 PUF BID 12/10 1000 AC 12/11 Formoterol Fumarate INH 08 Ceftriaxone Sodium 1,000 MG 12/10 220 CAN IV Docusate Sodium 100 MG DAILY NEEDED PRN 12/10 2345 AC PO Epoetin Ryan 10,000 UNIT Saturday .. 12/10 1300 AC IV Escitalopram Oxalate 10 MG DAILY 12/10 1000 AC 12/10 PO 1022 Heparin Sodium 5,000 UNIT Q8 12/10 06 AC 12/11 (Porcine) SC 0551 Ipratropium [place] 2.5 ML EVERY 4 HRS/AWAKE 12/11 1999 AC 12/11 INH 0750 Methylprednisolone 40 MG Q8 12/11 0928 AC IV Metoprolol Tartrate 50 MG BID 12/10 1000 AC 12/11 PO 0825 Omeprazole 40 MG DAILY AC 12/10 0700 AC 12/11 PO 0551 Roflumilast 500 MCG DAILY 12/10 1000 AC 12/11 PO 0827 Senna 187 MG AT BEDTIME 12/11 220 AC PO Results Pertinent Lab Results: Laboratory Tests 12/11 12/10 0630 1203 Chemistry Sodium (137 - 145 mmol/L) 138 Potassium (3.5 - 5.1 mmol/L) 4.8 Chloride (98 - 107 mmol/L) 97 L Carbon Dioxide (22 - 30 mmol/L) 23 Anion Gap (5 - 16) 19 H BUN (9 - 20 mg/dL) 59 H Creatinine (0.7 - 1.2 mg/dL) 5.9 *H Estimated GFR (>60 ml/min) 9 L BUN/Creatinine Ratio (7 - 25 %) 10.0 Hematology CBC w Diff NO MAN DIFF REQ WBC (4.8 - 10.8 /CUMM) 6.4 RBC (4.70 - 6.10 /CUMM) 3.79 L Hgb (14.0 - 18.0 G/DL) 10.2 L Hct (42 - 52 %) 32.8 L MCV (80.0 - 94.0 FL) 86.5 MCH (27.0 - 31.0 PG) 27.0 RDW (11.5 - 14.5 %) 17.5 H Plt Count (130 - 400 /CUMM) 154 MPV (7.4 - 10.4 FL) 11.4 H Gran % (42.2 - 75.2 %) 84.7 H Lymphocytes % (20.5 - 51.1 %) 6.3 L Monocytes % (1.7 - 9.3 %) 8.9 Eosinophils % (0 - 5 %) 0.1 Basophils % (0.0 - 2.0 %) 0 L Absolute Granulocytes (1.4 - 6.5 /CUMM) 5.4 Absolute Lymphocytes (1.2 - 3.4 /CUMM) 0.4 L Absolute Monocytes (0.10 - 0.60 /CUMM) 0.6 Absolute Eosinophils (0.0 - 0.7 /CUMM) 0 Absolute Basophils (0.0 - 0.2 /CUMM) 0 PUBS MCHC (33.0 - 37.0 G/DL) 31.3 L Serology Hep Bs Antigen (NONREACTIVE) NONREACTIVE Hep Bs Antibody (NONREACTIVE) NONREACTIVE 12/10 12/10 1200 0541 Chemistry Sodium (137 - 145 mmol/L) 135 L Potassium (3.5 - 5.1 mmol/L) 5.6 H Chloride (98 - 107 mmol/L) 92 L Carbon Dioxide (22 - 30 mmol/L) 22 Anion Gap (5 - 16) 21 H BUN (9 - 20 mg/dL) 85 H Creatinine (0.7 - 1.2 mg/dL) 9.0 *H Estimated GFR (>60 ml/min) 6 L BUN/Creatinine Ratio (7 - 25 %) 9.4 Troponin I (<0.11 ng/ml) Cancelled 0.10 Hematology CBC w Diff NO MAN DIFF REQ WBC (4.8 - 10.8 /CUMM) 6.9 RBC (4.70 - 6.10 /CUMM) 3.73 L Hgb (14.0 - 18.0 G/DL) 10.1 L Hct (42 - 52 %) 32.2 L MCV (80.0 - 94.0 FL) 86.3 MCH (27.0 - 31.0 PG) 27.1 RDW (11.5 - 14.5 %) 17.2 H Plt Count (130 - 400 /CUMM) 148 MPV (7.4 - 10.4 FL) 10.9 H Gran % (42.2 - 75.2 %) 91.8 H Lymphocytes % (20.5 - 51.1 %) 5.9 L Monocytes % (1.7 - 9.3 %) 2.3 Eosinophils % (0 - 5 %) 0 Basophils % (0.0 - 2.0 %) 0 L Absolute Granulocytes (1.4 - 6.5 /CUMM) 6.3 Absolute Lymphocytes (1.2 - 3.4 /CUMM) 0.4 L Absolute Monocytes (0.10 - 0.60 /CUMM) 0.2 Absolute Eosinophils (0.0 - 0.7 /CUMM) 0 Absolute Basophils (0.0 - 0.2 /CUMM) 0 PUBS MCHC (33.0 - 37.0 G/DL) 31.4 L 12/10 0018 Chemistry Sodium (137 - 145 mmol/L) 134 L Potassium (3.5 - 5.1 mmol/L) 5.3 H Chloride (98 - 107 mmol/L) 92 L Carbon Dioxide (22 - 30 mmol/L) 23 Anion Gap (5 - 16) 19 H BUN (9 - 20 mg/dL) 81 H Creatinine (0.7 - 1.2 mg/dL) 8.6 *H Estimated GFR (>60 ml/min) 6 L BUN/Creatinine Ratio (7 - 25 %) 9.4 Glucose (65 - 99 mg/dL) 91 Calcium (8.4 - 10.2 mg/dL) 8.9 Total Bilirubin (0.2 - 1.3 mg/dL) 1.2 AST (17 - 59 U/L) 34 ALT (21 - 72 U/L) 42 Alkaline Phosphatase (< 127 U/L) 121 Troponin I (<0.11 ng/ml) 0.10 Nay-B-[id number] Pept (<125 pg/mL) 539679 H Total Protein (6.3 - 8.2 g/dL) 7.1 Albumin (3.5 - 5.0 g/dL) 3.9 Globulin (1.9 - 4.2 gm/dL) 3.2 Albumin/Globulin Ratio (1.1 - 2.2 %) 1.2 Coagulation PT (9.4 - 12.5 SEC) 15.6 H INR (0.90 - 1.17) 1.49 H APTT (25 - 37 SEC) 33 D-Dimer (70 - 232 ng/ml) 901 H Hematology CBC w Diff NO MAN DIFF REQ WBC (4.8 - 10.8 /CUMM) 8.7 RBC (4.70 - 6.10 /CUMM) 3.78 L Hgb (14.0 - 18.0 G/DL) 10.2 L Hct (42 - 52 %) 32.5 L MCV (80.0 - 94.0 FL) 86.1 MCH (27.0 - 31.0 PG) 27.0 RDW (11.5 - 14.5 %) 16.9 H Plt Count (130 - 400 /CUMM) 174 MPV (7.4 - 10.4 FL) 11.6 H Gran % (42.2 - 75.2 %) 80.5 H Lymphocytes % (20.5 - 51.1 %) 8.4 L Monocytes % (1.7 - 9.3 %) 10.7 H Eosinophils % (0 - 5 %) 0 Basophils % (0.0 - 2.0 %) 0.4 Absolute Granulocytes (1.4 - 6.5 /CUMM) 7.0 H Absolute Lymphocytes (1.2 - 3.4 /CUMM) 0.7 L Absolute Monocytes (0.10 - 0.60 /CUMM) 0.9 H Absolute Eosinophils (0.0 - 0.7 /CUMM) 0 Absolute Basophils (0.0 - 0.2 /CUMM) 0 PUBS MCHC (33.0 - 37.0 G/DL) 31.4 L Imaging/Other Studies: CTA IMPRESSION: No CT evidence for pulmonary embolism. Stable atherosclerotic disease with multiple small saccular aneurysms within the thoracic aorta. Moderate right and small left pleural effusions with associated airspace disease. Emphysema. Interval increase in size in multiple mediastinal lymph nodes. The largest is a lower right paratracheal lymph node. Correlate with patient history. Consider correlation with PET/CT for further characterization. Chest X-ray IMPRESSION: Stable cardiomegaly with interval increase in interstitial prominence likely account services representative of vascular congestion. Small focus of wedge-shaped opacification at the lateral right lung base which likely corresponds to airspace disease with a possible small right pleural effusion.
--- NOTE | 2016-12-11 13:50 | PN- Cardiology ---
Subjective Subjective: Clinically, the patient slightly better today. Respiratory status remains tenuous. Persistent cough. No new cardiovascular symptoms. Objective Vital Signs and I&Os Vital Signs Date Time Temp Pulse Resp B/P Pulse O2 O2 Flow FiO2 Ox Delivery Rate 12/11 0825 97 155/76 12/11 0752 97 Nasal 3.0L Cannula 12/11 0746 98.0 92 18 155/76 97 Nasal 3.0L Cannula 12/11 0324 98 Nasal 3.0L Cannula 12/11 0005 97.9 81 20 126/58 91 CPAP 12/11 0000 CPAP 3.0L 12/10 2137 96 148/70 12/10 1657 97.6 90 20 160/74 100 Nasal 3.0L Cannula 12/10 1645 89 Nasal 2.0L Cannula 12/10 1621 Nasal 3.0L Cannula 12/10 1600 Nasal 3.0L Cannula Intake & Output 12/11 1600 12/11 0800 12/11 0000 12/10 1600 12/10 0800 12/10 0000 Intake Total 100 480 40 Output Total 3500 Balance 100 -3020 40 Intake, IV 0 Intake, Oral 100 480 40 Number 0 Bowel Movements Output, 3500 Dialysate Patient 167 lb 169 lb 184 lb 184 lb Weight Current Medications: Current Medications Sig/Zoe Start time Last Medication Dose Route Stop Time Status Admin Acetaminophen 500 MG Q6P PRN 12/10 0400 AC PO Acetaminophen/ 1 TAB Q6P PRN 12/10 0400 AC 12/10 Hydrocodone Bitart PO 1702 Albuterol Sulfate 3 ML EVERY 4 HRS/AWAKE 12/10 2000 AC 12/11 INH 1116 Aspirin Buffered 81 MG DAILY 12/10 1000 AC 12/11 PO 0824 Atorvastatin Calcium 40 MG DAILY 12/10 1000 AC 12/11 PO 0824 Azithromycin 500 MG DAILY 12/11 1000 AC 12/11 Sodium Chloride 250 ML IV 1019 Budesonide/ 2 PUF BID 12/10 1000 AC 12/11 Formoterol Fumarate INH 0826 Docusate Sodium 100 MG DAILY NEEDED PRN 12/10 2345 AC PO Epoetin Ryan 10,000 UNIT Saturday .. 12/10 1300 AC IV Escitalopram Oxalate 10 MG DAILY 12/10 1000 AC 12/10 PO 1022 Heparin Sodium 5,000 UNIT Q8 12/10 0600 AC 12/11 (Porcine) SC 0551 Ipratropium [place] 2.5 ML EVERY 4 HRS/AWAKE 12/11 1999 AC 12/11 INH 1116 Methylprednisolone 40 MG Q8 12/11 0928 AC IV Metoprolol Tartrate 50 MG BID 12/10 1000 AC 12/11 PO 0825 Omeprazole 40 MG DAILY AC 12/10 0700 AC 12/11 PO 0551 Paricalcitol 4 MCG Saturday .. 12/12 1000 AC IV Roflumilast 500 MCG DAILY 12/10 1000 AC 12/11 PO 0827 Senna 187 MG AT BEDTIME 12/11 2200 AC PO Results Last 48 Hrs of Labs/Mics: Laboratory Tests 12/11/16 0630: Anion Gap 19 H, Estimated GFR 9 L, BUN/Creatinine Ratio 10.0, CBC w Diff NO MAN DIFF REQ, RBC 3.79 L, MCV 86.5, MCH 27.0, RDW 17.5 H, MPV 11.4 H, Gran % 84.7 H, Lymphocytes % 6.3 L, Monocytes % 8.9, Eosinophils % 0.1, Basophils % 0 L, Absolute Granulocytes 5.4, Absolute Lymphocytes 0.4 L, Absolute Monocytes 0.6, Absolute Eosinophils 0, Absolute Basophils 0, PUBS MCHC 31.3 L 12/10/16 1203: Hep Bs Antigen NONREACTIVE, Hep Bs Antibody NONREACTIVE 12/10/16 1200: Troponin I Cancelled 12/10/16 0543: Anion Gap 21 H, Estimated GFR 6 L, BUN/Creatinine Ratio 9.4, Troponin I 0.10, CBC w Diff NO MAN DIFF REQ, RBC 3.73 L, MCV 86.3, MCH 27.1, RDW 17.2 H, MPV 10.9 H, Gran % 91.8 H, Lymphocytes % 5.9 L, Monocytes % 2.3, Eosinophils % 0, Basophils % 0 L, Absolute Granulocytes 6.3, Absolute Lymphocytes 0.4 L, Absolute Monocytes 0.2, Absolute Eosinophils 0, Absolute Basophils 0, PUBS MCHC 31.4 L 12/10/16 0018: Anion Gap 19 H, Estimated GFR 6 L, BUN/Creatinine Ratio 9.4, Glucose 91, Calcium 8.9, Total Bilirubin 1.2, AST 34, ALT 42, Alkaline Phosphatase 121, Troponin I 0.10, Tud-R-Nvylrykxzwt Pept H, Total Protein 7.1, Albumin 3.9, Globulin 3.2, Albumin/Globulin Ratio 1.2, PT 15.6 H, INR 1.49 H, APTT 33, D-Dimer 901 H, CBC w Diff NO MAN DIFF REQ, RBC 3.78 L, MCV 86.1, MCH 27.0, RDW 16.9 H, MPV 11.6 H, Gran % 80.5 H, Lymphocytes % 8.4 L, Monocytes % 10.7 H, Eosinophils % 0, Basophils % 0.4, Absolute Granulocytes 7.0 H, Absolute Lymphocytes 0.7 L, Absolute Monocytes 0.9 H, Absolute Eosinophils 0, Absolute Basophils 0, PUBS MCHC 31.4 L Assessment/Plan Assessment/Plan Assessment- 1. Systolic HF, chronic 2. Dyspnea 2/2 URI vs developing PNA vs Volume overload 3. ESRD on HD 4. CAD s/p stent placement 5. Saccular aneursyms of the descending thracic aorta 6. Left sided lateral rib pain, troponins X 2 have both been 0.10 7. Chronic anemia, likely 2/2 ESRD Recommendations: -Continue current management as per the medical team. -Continue current nephrology/hemodialysis management -Continue antibiotics -Continue current cardiac medications. -Limited follow-up echocardiogram to assess left ventricular function and wall motion. -From a cardiac standpoint, the patient appears stable to come off of telemetry monitoring. Continue telemetry? No
[2016-12-11 14:57] LABS: ABSOLUTE BASOPHIL COUNT 0 /CUMM (0.0-0.2); ABSOLUTE EOSINOPHIL COUNT 0 /CUMM (0.0-0.7); ABSOLUTE GRANULOCYTE CT 5.4 /CUMM (1.4-6.5); ABSOLUTE LYMPH COUNT 0.3 /CUMM (1.2-3.4); ABSOLUTE MONOCYTE COUNT 0.5 /CUMM (0.10-0.60); BASOPHIL % 0.2 % (0.0-2.0); EOSINOPHIL % 0 % (0-5); GRANULOCYTE % 86.1 % (42.2-75.2); HEMATOCRIT 32.2 % (42-52); MEAN CORPUSCULAR HGB 27.1 PG (27.0-31.0); MEAN CORPUSCULAR HGB CONC 31.1 G/DL (33.0-37.0); MEAN CORPUSCULAR VOLUME 87.2 FL (80.0-94.0); MEAN PLATELET VOLUME 11.2 FL (7.4-10.4); PLATELET COUNT 152 /CUMM (130-400); RBC DISTRIBUTION WIDTH 17.3 % (11.5-14.5); RED BLOOD CELL CT 3.69 /CUMM (4.70-6.10)
[2016-12-11 15:19] LABS: WHITE BLOOD CELL COUNT 6.3 /CUMM (4.8-10.8)
[2016-12-11 17:07] VITALS: BP 132/70
[2016-12-12 00:19] VITALS: BP 158/80
--- NOTE | 2016-12-12 07:22 | PN- Housestaff ---
ALBERT MONTES,[facility] 12/12/16 0721: Subjective Follow-up For: 1. COPD exacerbation 2. Fluid overload 3. End-stage renal disease on hemodialysis Tele-Events Since Last Visit: General med overload, vomiting monitor Subjective: In the morning the patient reported having shortness of breath, wheezing and cough which is nonproductive. He did report he feels slightly better but still not too well. Denies any chest pain, palpitations, orthopnea, fever or chills, nausea or vomiting. Review of Systems Constitutional: Reports: see HPI. Cardiovascular: Denies: chest pain, orthopena, palpitations. Respiratory: Reports: cough, short of breath, wheezing. Gastrointestinal: Reports: no symptoms. Genitourinary: Reports: no symptoms. Objective Last 24 Hrs of Vital Signs/I&O Vital Signs Date Time Temp Pulse Resp B/P Pulse O2 O2 Flow FiO2 Ox Delivery Rate 12/12 0815 96 Nasal 3.0L Cannula 12/12 0800 97.4 96 20 164/80 98 Nasal 3.0L Cannula 12/12 0019 98.2 103 20 158/80 94 Nasal 3.0L Cannula 12/12 0000 Nasal 3.0L Cannula 12/11 1847 96 Nasal 2.0L Cannula 12/11 1707 98.2 95 20 132/70 95 Nasal Cannula 12/11 1600 96 Nasal 3.0L Cannula Intake & Output 12/12 1600 12/12 0800 12/12 0000 Intake Total 260 260 Output Total Balance 260 260 Intake, IV 20 20 Intake, Oral 240 240 Number 1 Bowel Movements Patient 169 lb 166 lb Weight Physical Exam General Appearance: Alert, Oriented X3, Cooperative, Mild Distress Neck: Supple, No JVD Cardiovascular: Regular Rate, Normal S1, Normal S2, No Murmurs Lungs: BILATERAL DIFFUSE WHEEZING Abdomen: Normal Bowel Sounds, Soft, No Tenderness Extremities: Normal Pulses, peripheral edema Last 24 Hrs of Lab/Jesus Results Last 24 Hrs of Labs/Mics: Laboratory Tests 12/11/16 1400: Anion Gap 17 H, Estimated GFR 8 L, BUN/Creatinine Ratio 9.5, Magnesium 2.0, CBC w Diff NO MAN DIFF REQ, RBC 3.69 L, MCV 87.2, MCH 27.1, RDW 17.3 H, MPV 11.2 H, Gran % 86.1 H, Lymphocytes % 5.3 L, Monocytes % 8.4, Eosinophils % 0, Basophils % 0.2, Absolute Granulocytes 5.4, Absolute Lymphocytes 0.3 L, Absolute Monocytes 0.5, Absolute Eosinophils 0, Absolute Basophils 0, PUBS MCHC 31.1 L Microbiology 12/11 1125 LOWER RESP: Respiratory Culture - RES 12/11 112 LOWER RESP: Gram Stain - RES Lines/Diet/Fluids Restraints: none Assessment/Plan Assessment: 71-year-old male with past medical history of CAD/stents, COPD on home oxygen, presents to ED with c/o shortness of breath and chest tightness secondary to ? community-acquired pneumonia as seen in chest x-ray, but CAT scan showed some airspace disease with Small left pleural effusion with associated respiratory disease. He was started on ceftriaxone and azithromycin for community-acquired pneumonia in the ED. 1. Acute on chronic hypoxic respiratory failure secondary to COPD exacerbation along with some fluid overload (history of mild decrease in systolic function with the last ejection fraction of 40% in September 2016) in the setting of end- stage renal disease -Antibiotics discontinued on 12/10/16 -He was started on IV Solu-Medrol 40 every 8 for 09/12/16, however he still has bilateral wheezing therefore will continue with the same dose for now -We'll continue with TRC nebulizes -Sputum Gram stain shows few WBCs and no organisms seen. Blood culture negative , no growth after 1 day - WBC within normal limits since admission - If the person does not improve tomorrow we'll consider pulmonology consult - Lymphadenopathy on CAT scan could be reactive. He will needed repeat imaging as an outpatient follow up on the lymphadenopathy 2. Systolic congestive heart failure: - Patient does not appear to be in decompensated heart failure at this time - Previous echo in September 2016 showed ejection fraction of 40-45% - He does not make urine, and dialysis dependent for congestive heart failure -Follows Saturday schedule for dialysis -We'll continue his metoprolol aspirin and statins. - troponins have been negative with no EKG changes - Per cardiology patient can be off telemetry as it is no evidence of decompensated heart failure. 3. ESRD on hemodialysis -Currently on Saturday schedule - Is to have dialysis today - FLUId removal will definitely help him -Nephrology on board 4. CAD status post setnts - Continue his aspirin statins and beta blockers 6. Obstructive sleep apnea CPAP at night DVT px with SC heparin FULL CODE Problem List: 1. CONGESTIVE HEART FAILURE 2. COPD EXACERBATION 3. Chronic kidney disease stage 4 Pain Ratin Pain Location: No pain in the morning Pain Goal: Remain pain free Pain Plan: Vicodin when necessary Tomorrow's Labs & Rationales: BEP for BUN and creatinine DVT/Prophylaxis: pharmacological Consulting Request: 1 Consulting Specialty: Nephrology Consulting Physician: Dr. Muñoz Reason for Consult: end-stage renal disease on hemodialysis Consulting Request: 2 Consulting Specialty: Cardiology Consulting Physician: Kenn Recio MD Reason for Consult: fluid overload JUAN BUTCHER MD 12/12/16 1526: Attending MD Review Statement Attending Statement Attending MD Statement: examined this patient, discuss w/resident/PA/PIG BREEDER, agreed w/resident/PA/PIG BREEDER, reviewed EMR data (avail) Attending Assessment/Plan: Patient still short of breath and wheezing. No evidence of fluid overload, more likely acute exacerbation of COPD. Can discontinue telemetry and transfer to general medicine floor. Will cotninue Solumedrol 40mg q8h, nebulizer treatments , Azithromycin, continue home PO Lasix, follow nephrology recommendations for dialysis, continue home medications, DVT PPx
[2016-12-12 08:00] VITALS: BP 164/80
--- NOTE | 2016-12-12 08:59 | PN- Cardiology ---
Subjective Subjective: Stable Objective Vital Signs and I&Os Vital Signs Date Time Temp Pulse Resp B/P Pulse O2 O2 Flow FiO2 Ox Delivery Rate 12/12 0815 96 Nasal 3.0L Cannula 12/12 0800 97.4 96 20 164/80 98 Nasal 3.0L Cannula 12/12 0019 98.2 103 20 158/80 94 Nasal 3.0L Cannula 12/12 0000 Nasal 3.0L Cannula 12/11 1847 96 Nasal 2.0L Cannula 12/11 1707 98.2 95 20 132/70 95 Nasal Cannula 12/11 1600 96 Nasal 3.0L Cannula Intake & Output 12/12 1600 12/12 0800 12/12 0000 12/11 1600 12/11 0800 12/11 0000 Intake Total 260 260 100 480 Output Total 3500 Balance 260 260 100 -3020 Intake, IV 20 20 0 Intake, Oral 240 240 100 480 Number 1 0 Bowel Movements Output, 3500 Dialysate Patient 169 lb 166 lb 167 lb 169 lb Weight Current Medications: Current Medications Sig/Zoe Start time Last Medication Dose Route Stop Time Status Admin Acetaminophen 500 MG Q6P PRN 12/10 0400 AC PO Acetaminophen/ 1 TAB Q6P PRN 12/10 0400 AC 12/11 Hydrocodone Bitart PO 1940 Albuterol Sulfate 3 ML EVERY 4 HRS/AWAKE 12/11 1999 AC 12/12 INH 0803 Aspirin Buffered 81 MG DAILY 12/10 1000 AC 12/11 PO 0824 Atorvastatin Calcium 40 MG DAILY 12/10 1000 AC 12/11 PO 0824 Azithromycin 500 MG DAILY 12/11 1000 AC 12/11 Sodium Chloride 250 ML IV 1019 Budesonide/ 2 PUF BID 12/10 1000 AC 12/11 Formoterol Fumarate INH 2119 Docusate Sodium 100 MG DAILY NEEDED PRN 12/10 2345 AC PO Epoetin Ryan 10,000 UNIT Saturday .. 12/10 1300 AC IV Escitalopram Oxalate 10 MG DAILY 12/10 1000 AC 12/10 PO 1022 Heparin Sodium 5,000 UNIT Q8 12/10 0600 AC 12/12 (Porcine) SC 0539 Ipratropium [place] 2.5 ML EVERY 4 HRS/AWAKE 12/11 1999 AC 12/12 INH 0803 Methylprednisolone 40 MG Q8H 12/11 1715 AC 12/12 IV 0000 Methylprednisolone 40 MG Q8 12/11 0928 DC IV Metoprolol Tartrate 50 MG BID 12/10 1000 AC 12/11 PO 2118 Omeprazole 40 MG DAILY AC 12/10 0700 AC 12/12 PO 0539 Paricalcitol 4 MCG Saturday .. 12/12 1000 AC IV Roflumilast 500 MCG DAILY 12/10 1000 AC 12/11 PO 08 Senna 187 MG AT BEDTIME 12/11 2200 AC 12/11 PO 2118 Results Last 48 Hrs of Labs/Mics: Laboratory Tests 12/11/16 1400: Anion Gap 17 H, Estimated GFR 8 L, BUN/Creatinine Ratio 9.5, Magnesium 2.0, CBC w Diff NO MAN DIFF REQ, RBC 3.69 L, MCV 87.2, MCH 27.1, RDW 17.3 H, MPV 11.2 H, Gran % 86.1 H, Lymphocytes % 5.3 L, Monocytes % 8.4, Eosinophils % 0, Basophils % 0.2, Absolute Granulocytes 5.4, Absolute Lymphocytes 0.3 L, Absolute Monocytes 0.5, Absolute Eosinophils 0, Absolute Basophils 0, PUBS MCHC 31.1 L 12/11/16 0630: Anion Gap 19 H, Estimated GFR 9 L, BUN/Creatinine Ratio 10.0, CBC w Diff NO MAN DIFF REQ, RBC 3.79 L, MCV 86.5, MCH 27.0, RDW 17.5 H, MPV 11.4 H, Gran % 84.7 H, Lymphocytes % 6.3 L, Monocytes % 8.9, Eosinophils % 0.1, Basophils % 0 L, Absolute Granulocytes 5.4, Absolute Lymphocytes 0.4 L, Absolute Monocytes 0.6, Absolute Eosinophils 0, Absolute Basophils 0, PUBS MCHC 31.3 L 12/10/16 1203: Hep Bs Antigen NONREACTIVE, Hep Bs Antibody NONREACTIVE 12/10/16 1200: Troponin I Cancelled Assessment/Plan Assessment/Plan Assessment- 1. Systolic HF, chronic 2. Dyspnea 2/2 URI vs developing PNA vs Volume overload 3. ESRD on HD 4. CAD s/p stent placement 5. Saccular aneursyms of the descending thracic aorta 6. Left sided lateral rib pain, troponins X 2 have both been 0.10 7. Chronic anemia, likely 2/2 ESRD Recommendations: - Continue telemetry? No
--- NOTE | 2016-12-12 09:41 | PN- Nephrology ---
Assessment/Plan Assessment: ESRD - Poor PO intake over last couple of weeks - not entirely clear why. Dialysis clearance had been fine prior to that. Likely has lost fat/muscle so that when he brought down to his "dry weight," he is left "volume overloaded." His weight is significantly down. He wants an EDW of 76kg which is reasonable although really does imply that he lost a lot of "fat/muscle" if the scale weight is accurate. We agreed on discharging him with this weight but that it would need to be closely monitored/titrated outside of the hospital. Will likely not need much fluid off during dialysis today - target ~1-2L. Anemia - Hg at goal. Continuing on Epogen. 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 Lymphadenopathy - Unclear underlying etiology. Not clear that it's related to his weight loss over the last few weeks. Will need to be closely monitored. Suggestion: -Routine dialysis today -Tentative plans to discharge with EDW of 76kg -Daily standing weights -Epogen 10,000U TIW with dialysis -Paricalcitol 4mcg TIW -f/u imaging for lymphadenopathy Please call [phone] with ?'s Subjective Subjective: Pt overall feeling well Weight ~76kg (prior EDW 83.5kg) - although some discrepancy in scales Micro neg thus far; afebrile - now off abx Objective Vital Signs and I&Os Vital Signs Date Time Temp Pulse Resp B/P Pulse O2 O2 Flow FiO2 Ox Delivery Rate 12/12 0815 96 Nasal 3.0L Cannula 12/12 0800 97.4 96 20 164/80 98 Nasal 3.0L Cannula 12/12 0019 98.2 103 20 158/80 94 Nasal 3.0L Cannula 12/12 0000 Nasal 3.0L Cannula 12/11 1847 96 Nasal 2.0L Cannula 12/11 1707 98.2 95 20 132/70 95 Nasal Cannula 12/11 1600 96 Nasal 3.0L Cannula Intake & Output 12/12 1600 12/12 0400 12/11 1600 12/11 0400 12/10 1600 12/10 0400 Intake Total 260 260 100 480 40 Output Total 3500 Balance 260 260 100 -3020 40 Intake, IV 20 20 0 Intake, Oral 240 240 100 480 40 Number 1 0 Bowel Movements Output, 3500 Dialysate Patient 169 lb 166 lb 167 lb 169 lb 184 lb 184 lb Weight Physical Exam: Gen - NAD HEENT - supple CV - RRR Chest - RLL rhonchi Abd - soft, nontender Ext - no significant edema Neuro - AOX3 Access - DHRUV AVF +thrill Current Medications: Current Medications Sig/Zoe Start time Last Medication Dose Route Stop Time Status Admin Acetaminophen 500 MG Q6P PRN 12/10 0400 AC PO Acetaminophen/ 1 TAB Q6P PRN 12/10 0400 AC 12/11 Hydrocodone Bitart PO 1940 Albuterol Sulfate 3 ML EVERY 4 HRS/AWAKE 12/11 1999 AC 12/12 INH 0803 Aspirin Buffered 81 MG DAILY 12/10 1000 AC 12/11 PO 0824 Atorvastatin Calcium 40 MG DAILY 12/10 1000 AC 12/11 PO 0824 Azithromycin 500 MG DAILY 12/11 1000 AC 12/11 Sodium Chloride 250 ML IV 1019 Budesonide/ 2 PUF BID 12/10 1000 AC 12/11 Formoterol Fumarate INH 2119 Docusate Sodium 100 MG DAILY NEEDED PRN 12/10 2345 AC PO Epoetin Ryan 10,000 UNIT Saturday .. 12/10 1300 AC IV Escitalopram Oxalate 10 MG DAILY 12/10 1000 AC 12/10 PO 1022 Heparin Sodium 5,000 UNIT Q8 12/10 0600 AC 12/12 (Porcine) SC 0539 Ipratropium [place] 2.5 ML EVERY 4 HRS/AWAKE 12/11 1999 AC 12/12 INH 0803 Methylprednisolone 40 MG Q8H 12/11 1715 AC 12/12 IV 0000 Methylprednisolone 40 MG Q8 12/11 0928 DC IV Metoprolol Tartrate 50 MG BID 12/10 1000 AC 12/11 PO 211 Omeprazole 40 MG DAILY AC 12/10 0700 AC 12/12 PO 0539 Paricalcitol 4 MCG Saturday .. 12/12 1000 AC IV Roflumilast 500 MCG DAILY 12/10 1000 AC 12/11 PO 0827 Senna 187 MG AT BEDTIME 12/11 2200 AC 12/11 PO 2118 Results Pertinent Lab Results: Laboratory Tests 12/11 12/11 1400 0630 Chemistry Sodium (137 - 145 mmol/L) 138 138 Potassium (3.5 - 5.1 mmol/L) 4.5 4.8 Chloride (98 - 107 mmol/L) 95 L 97 L Carbon Dioxide (22 - 30 mmol/L) 26 23 Anion Gap (5 - 16) 17 H 19 H BUN (9 - 20 mg/dL) 63 H 59 H Creatinine (0.7 - 1.2 mg/dL) 6.6 *H 5.9 *H Estimated GFR (>60 ml/min) 8 L 9 L BUN/Creatinine Ratio (7 - 25 %) 9.5 10.0 Magnesium (1.6 - 2.3 mg/dL) 2.0 Hematology CBC w Diff NO MAN DIFF REQ NO MAN DIFF REQ WBC (4.8 - 10.8 /CUMM) 6.3 6.4 RBC (4.70 - 6.10 /CUMM) 3.69 L 3.79 L Hgb (14.0 - 18.0 G/DL) 10.0 L 10.2 L Hct (42 - 52 %) 32.2 L 32.8 L MCV (80.0 - 94.0 FL) 87.2 86.5 MCH (27.0 - 31.0 PG) 27.1 27.0 RDW (11.5 - 14.5 %) 17.3 H 17.5 H Plt Count (130 - 400 /CUMM) 152 154 MPV (7.4 - 10.4 FL) 11.2 H 11.4 H Gran % (42.2 - 75.2 %) 86.1 H 84.7 H Lymphocytes % (20.5 - 51.1 %) 5.3 L 6.3 L Monocytes % (1.7 - 9.3 %) 8.4 8.9 Eosinophils % (0 - 5 %) 0 0.1 Basophils % (0.0 - 2.0 %) 0.2 0 L Absolute Granulocytes (1.4 - 6.5 /CUMM) 5.4 5.4 Absolute Lymphocytes (1.2 - 3.4 /CUMM) 0.3 L 0.4 L Absolute Monocytes (0.10 - 0.60 /CUMM) 0.5 0.6 Absolute Eosinophils (0.0 - 0.7 /CUMM) 0 0 Absolute Basophils (0.0 - 0.2 /CUMM) 0 0 PUBS MCHC (33.0 - 37.0 G/DL) 31.1 L 31.3 L 12/10 12/10 1203 1200 Chemistry Troponin I Cancelled Serology Hep Bs Antigen (NONREACTIVE) NONREACTIVE Hep Bs Antibody (NONREACTIVE) NONREACTIVE 04/10 04/10 0543 0018 Chemistry Sodium (137 - 145 mmol/L) 135 L 134 L Potassium (3.5 - 5.1 mmol/L) 5.6 H 5.3 H Chloride (98 - 107 mmol/L) 92 L 92 L Carbon Dioxide (22 - 30 mmol/L) 22 23 Anion Gap (5 - 16) 21 H 19 H BUN (9 - 20 mg/dL) 85 H 81 H Creatinine (0.7 - 1.2 mg/dL) 9.0 *H 8.6 *H Estimated GFR (>60 ml/min) 6 L 6 L BUN/Creatinine Ratio (7 - 25 %) 9.4 9.4 Glucose (65 - 99 mg/dL) 91 Calcium (8.4 - 10.2 mg/dL) 8.9 Total Bilirubin (0.2 - 1.3 mg/dL) 1.2 AST (17 - 59 U/L) 34 ALT (21 - 72 U/L) 42 Alkaline Phosphatase (< 127 U/L) 121 Troponin I (<0.11 ng/ml) 0.10 0.10 Ikp-H-Bvklxakcemk Pept (<125 pg/mL) 089820 H Total Protein (6.3 - 8.2 g/dL) 7.1 Albumin (3.5 - 5.0 g/dL) 3.9 Globulin (1.9 - 4.2 gm/dL) 3.2 Albumin/Globulin Ratio (1.1 - 2.2 %) 1.2 Coagulation PT (9.4 - 12.5 SEC) 15.6 H INR (0.90 - 1.17) 1.49 H APTT (25 - 37 SEC) 33 D-Dimer (70 - 232 ng/ml) 901 H Hematology CBC w Diff NO MAN DIFF REQ NO MAN DIFF REQ WBC (4.8 - 10.8 /CUMM) 6.9 8.7 RBC (4.70 - 6.10 /CUMM) 3.73 L 3.78 L Hgb (14.0 - 18.0 G/DL) 10.1 L 10.2 L Hct (42 - 52 %) 32.2 L 32.5 L MCV (80.0 - 94.0 FL) 86.3 86.1 MCH (27.0 - 31.0 PG) 27.1 27.0 RDW (11.5 - 14.5 %) 17.2 H 16.9 H Plt Count (130 - 400 /CUMM) 148 174 MPV (7.4 - 10.4 FL) 10.9 H 11.6 H Gran % (42.2 - 75.2 %) 91.8 H 80.5 H Lymphocytes % (20.5 - 51.1 %) 5.9 L 8.4 L Monocytes % (1.7 - 9.3 %) 2.3 10.7 H Eosinophils % (0 - 5 %) 0 0 Basophils % (0.0 - 2.0 %) 0 L 0.4 Absolute Granulocytes (1.4 - 6.5 /CUMM) 6.3 7.0 H Absolute Lymphocytes (1.2 - 3.4 /CUMM) 0.4 L 0.7 L Absolute Monocytes (0.10 - 0.60 /CUMM) 0.2 0.9 H Absolute Eosinophils (0.0 - 0.7 /CUMM) 0 0 Absolute Basophils (0.0 - 0.2 /CUMM) 0 0 PUBS MCHC (33.0 - 37.0 G/DL) 31.4 L 31.4 L Imaging/Other Studies: CT IMPRESSION: No CT evidence for pulmonary embolism. Stable atherosclerotic disease with multiple small saccular aneurysms within the thoracic aorta. Moderate right and small left pleural effusions with associated airspace disease. Emphysema. Interval increase in size in multiple mediastinal lymph nodes. The largest is a lower right paratracheal lymph node. Correlate with patient history. Consider correlation with PET/CT for further characterization.
[2016-12-12 14:19] LABS: ABSOLUTE BASOPHIL COUNT 0 /CUMM (0.0-0.2); ABSOLUTE EOSINOPHIL COUNT 0 /CUMM (0.0-0.7); ABSOLUTE GRANULOCYTE CT 2.2 /CUMM (1.4-6.5); ABSOLUTE LYMPH COUNT 0.2 /CUMM (1.2-3.4); ABSOLUTE MONOCYTE COUNT 0.2 /CUMM (0.10-0.60); BASOPHIL % 0 % (0.0-2.0); EOSINOPHIL % 0.1 % (0-5); HEMATOCRIT 32.5 % (42-52); MEAN CORPUSCULAR HGB CONC 31.3 G/DL (33.0-37.0); MEAN CORPUSCULAR VOLUME 86.4 FL (80.0-94.0); MEAN PLATELET VOLUME 11.3 FL (7.4-10.4); RBC DISTRIBUTION WIDTH 17.3 % (11.5-14.5); RED BLOOD CELL CT 3.76 /CUMM (4.70-6.10)
[2016-12-12 14:38] LABS: GRANULOCYTE % 84.9 % (42.2-75.2); PLATELET COUNT 151 /CUMM (130-400); WHITE BLOOD CELL COUNT 2.6 /CUMM (4.8-10.8)
--- NOTE | 2016-12-12 17:10 | ECHOCARDIOGRAM REPORT ---
JAMES NELSON Age: 71 : 1945 Gender: M Exam Date: 12/11/2016 19:55 Exam Location: [address] [facility] Ht (in): 65 Wt (lb): 167 BSA: 1.88 BP: 132 / 70 Ordering Physician: FARTUN MCDONALD MD Referring Physician: Kenn Recio MD Technologist: Puja Dewitt [place] Room Number: 178 Indications: HEART FAILURE Rhythm: Sinus Technical Quality: Fair FINDINGS Left Ventricle Normal size left ventricle. Left ventricular wall thickness increased. Mildly reduced global left ventricular systolic function. Mildly abnormal left ventricular ejection fraction estimated at 40- 45%. Right Ventricle Right ventricle at upper limits of normal. Right Atrium Normal right atrial size. Left Atrium Mild to moderate left atrial dilatation. Mitral Valve Mitral valve thickened. Moderate mitral annular calcification. Moderate mitral regurgitation. Aortic Valve Trileaflet aortic valve. Diffuse thickening (sclerosis) of the aortic valve cusps without reduced excursion. No aortic stenosis. No aortic regurgitation. Tricuspid Valve Tricuspid valve not well visualized, grossly normal. Moderate tricuspid regurgitation. Right ventricular systolic pressure estimated to be elevated at 48 mmHg. Pulmonic Valve Pulmonic valve not well visualized, grossly normal. Pericardium No pericardial effusion. Great Vessels Normal size aortic root and proximal ascending aorta. CONCLUSIONS 1. This was a technically difficult examination. 2. MIld aortic sclerosis is present with no valvular stenosis or insufficiency. 3. Mitral leaflet thickening is present with mild to moderate anular calcification and moderate mitral insufficiency with left atrial enlargement. 4. THere is no significant pericardial fluid present. 5. The left ventricular chamber size is normal with mild concentric hypertrophy and global hypokinesia with an ejection fraction of 40- 45%, 6. The right heart structures were not optimally visualized. Mild to moderate tricuspid insufficiency is present with an estimated RV systolic pressure of 48 mmHg. Kenn Recio M.D. (Electronically Signed) Final Date: 12 December 2016 17:09 MEASUREMENTS (Male / Female) Normal Values 2D ECHO LV Diastolic Diameter PLAX 4.8 cm 4.2 - 5.9 / 3.9 - 5.3 cm LV Systolic Diameter PLAX 3.7 cm 2.1 - 4.0 cm LV Fractional Shortening PLAX 22.9 % 25 - 46 % LV Ejection Fraction 2D Teich 45.9 % IVS Diastolic Thickness 1.4 cm LVPW Diastolic Thickness 1.4 cm LV Relative Wall Thickness 0.6 LV Ejection Fraction MOD BP 41.7 % >= 55 % LV Diastolic Length 4C 9.5 cm 6.9 - 10.3 cm LV Diastolic Area 4C 38.1 cm LV Diastolic Volume MOD 4C 126.0 cm LV Ejection Fraction MOD 4C 44.4 % LV Stroke Volume MOD 4C 56.0 cm LV Systolic Length 4C 9.0 cm LV Systolic Area 4C 27.4 cm LV Systolic Volume MOD 4C 70.0 cm LV Ejection Fraction MOD 2C 41.4 % LV Diastolic Volume 4C AL 130.0 cm 85 - 139 / 69 - 109 cm LV Systolic Volume 4C AL 70.7 cm LV Ejection Fraction 4C AL 45.6 % LV Stroke Volume 4C AL 59.3 cm LV Ejection Fraction 2C AL 41.9 % DOPPLER AV Peak Velocity 225.0 cm/s AV Peak Gradient 20.3 mmHg AV Mean Velocity 147.0 cm/s AV Mean Gradient 10.0 mmHg AV Velocity Time Integral 40.8 cm LVOT Peak Velocity 225.0 cm/s LVOT Peak Gradient 20.3 mmHg LVOT Mean Velocity 149.0 cm/s LVOT Mean Gradient 10.0 mmHg LVOT Velocity Time Integral 38.5 cm MV Peak Velocity 219.0 cm/s MV Peak Gradient 19.2 mmHg MV Mean Velocity 129.0 cm/s MV Mean Gradient 8.0 mmHg MV PHT Velocity 223.0 cm/s MV Deceleration [place] 939.0 cm/s MV Pressure Half Time 71.2 ms MV Area PHT 3.1 cm TR Peak Velocity 306.0 cm/s TR Peak Gradient 37.5 mmHg Right Atrial Pressure 10.0 mmHg Pulmonary Artery Systolic Pressu 47.5 mmHg Right Ventricular Systolic Press 47.5 mmHg
[2016-12-12 17:11] VITALS: BP 148/78
[2016-12-12 22:23] VITALS: BP 162/72
--- NOTE | 2016-12-13 07:24 | PN- Housestaff ---
ALBERT MONTES,[facility] 12/13/16 0724: Subjective Follow-up For: 1. COPD exacerbation 2. Fluid overload 3. End-stage renal disease on hemodialysis Tele-Events Since Last Visit: SR 72-83, no events Subjective: Patient reported feeling more or less the same, continues to have cough, nonproductive, with shortness of breath especially on exertion. Denies chest pain, fever or chills. Review of Systems Constitutional: Reports: see HPI. Cardiovascular: Denies: chest pain, orthopena, palpitations. Respiratory: Reports: cough, short of breath, wheezing. Gastrointestinal: Reports: no symptoms. Genitourinary: Reports: no symptoms. Musculoskeletal: Reports: no symptoms. Objective Last 24 Hrs of Vital Signs/I&O Vital Signs Date Time Temp Pulse Resp B/P Pulse O2 O2 Flow FiO2 Ox Delivery Rate 12/13 0924 92 152/86 12/13 0800 98.0 103 20 174/90 97 Nasal 3.0L Cannula 12/13 0707 99 Nasal 3.0L Cannula 12/13 0000 CPAP 12/12 2223 98.2 102 16 162/72 98 Nasal 3.0L Cannula 12/12 2219 102 162/72 12/12 1856 98 Nasal 3.0L Cannula 12/12 1711 98.5 128 20 148/78 96 Nasal 3.0L Cannula 12/12 1703 128 148/78 12/12 1600 98 Nasal 3.0L Cannula Intake & Output 12/13 1600 12/13 0800 12/13 0000 Intake Total 240 610 Output Total 2000 Balance 240 -1390 Intake, IV 10 Intake, Oral 240 600 Output, 2000 Dialysate Patient 166 lb 164 lb Weight Physical Exam General Appearance: Alert, Oriented X3, Cooperative, No Acute Distress Cardiovascular: Regular Rate, Normal S1, Normal S2, No Murmurs Lungs: bilateral diffuse wheezing, minimally improved from yesterday Abdomen: Normal Bowel Sounds, Soft, No Tenderness, No Hepatospenomegaly Neurological: Normal Gait, Normal Speech, Strength at 5/5 X4 Ext, Normal Tone Extremities: No Edema, Normal Pulses Orders ECHO Findings: Normal size left ventricle. Left ventricular wall thickness increased. Mildly reduced global left ventricular systolic function. Mildly abnormal left ventricular ejection fraction estimated at 40- 45%. Lines/Diet/Fluids Lines: peripheral lines Assessment/Plan Assessment: 71-year-old male with past medical history of CAD/stents, COPD on home oxygen, presents to ED with c/o shortness of breath and chest tightness secondary to ? community-acquired pneumonia as seen in chest x-ray, but CAT scan showed some airspace disease with Small left pleural effusion with associated respiratory disease. He was started on ceftriaxone and azithromycin for community-acquired pneumonia in the ED. 1. Acute on chronic hypoxic respiratory failure secondary to COPD exacerbation along with some fluid overload (history of mild decrease in systolic function with the last ejection fraction of 40% in September 2016) in the setting of end- stage renal disease -Antibiotics discontinued on 12/10/16 -He was started on IV Solu-Medrol 40 every 8 for 09/12/16 - Wheezing minimally better - Will transition him to Solu-Medrol 40 every 12 hours and possibly to by mouth tomorrow - Possible DC tomorrow 2. Systolic congestive heart failure: - Patient does not appear to be in decompensated heart failure at this time - Previous echo in September 2016 showed ejection fraction of 40-45%, echo done on december shows similar EF of 40-45% - He does not make urine, and dialysis dependent for congestive heart failure -Follows Saturday schedule for dialysis -We'll continue his metoprolol aspirin and statins. 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 ESRD on hemodialysis -Currently on Saturday schedule - Nephrology on board - HD tomorrow, may be discharged 4. CAD status post setnts - Continue his aspirin statins and beta blockers 6. Obstructive sleep apnea CPAP at night DVT px with SC heparin FULL CODE Problem List: 1. Acute respiratory failure 2. Severe chronic obstructive pulmonary disease 3. Chronic kidney disease stage 4 4. Benign essential hypertension Pain Ratin Pain Location: none Pain Goal: Remain pain free Pain Plan: Vicodine Tomorrow's Labs & Rationales: not needed DVT/Prophylaxis: pharmacological Consulting Request: 1 Consulting Specialty: Cardiology Consulting Physician: Kenn Recio MD Reason for Consult: fluid overload Consulting Request: 2 Consulting Specialty: Nephrology Consulting Physician: Dr. Muñoz Reason for Consult: end-stage renal disease and urinalysis JUAN BUTCHER MD 12/13/16 1042: Attending MD Review Statement Attending Statement Attending MD Statement: examined this patient, discuss w/resident/PA/[employer], agreed w/resident/PA/[employer], reviewed EMR data (avail) Attending Assessment/Plan: Patient still short of breath and wheezing, however he is improved from yesterday. No evidence of fluid overload, more likely acute exacerbation of COPD. Can discontinue telemetry and transfer to general medicine floor. Taper Solumedrol to 40mg q12 with transition to PO tomorrow, nebulizer treatments, Azithromycin, continue home PO Lasix, follow nephrology recommendations for dialysis, continue home medications, DVT PPx. Anticipated discharge tomorrow. Please send CMR to pharmacy for review. No labs tomorrow.
[2016-12-13 08:00] VITALS: BP 152/80; BP 174/90
[2016-12-13 08:04] LABS: ABSOLUTE BASOPHIL COUNT 0 /CUMM (0.0-0.2); ABSOLUTE EOSINOPHIL COUNT 0 /CUMM (0.0-0.7); ABSOLUTE GRANULOCYTE CT 4.7 /CUMM (1.4-6.5); ABSOLUTE LYMPH COUNT 0.4 /CUMM (1.2-3.4); ABSOLUTE MONOCYTE COUNT 0.4 /CUMM (0.10-0.60); BASOPHIL % 0 % (0.0-2.0); EOSINOPHIL % 0 % (0-5); GRANULOCYTE % 85.7 % (42.2-75.2); HEMATOCRIT 35.7 % (42-52); MEAN CORPUSCULAR HGB 27.3 PG (27.0-31.0); MEAN CORPUSCULAR HGB CONC 31.8 G/DL (33.0-37.0); MEAN CORPUSCULAR VOLUME 85.8 FL (80.0-94.0); MEAN PLATELET VOLUME 11.1 FL (7.4-10.4); PLATELET COUNT 196 /CUMM (130-400); RBC DISTRIBUTION WIDTH 16.8 % (11.5-14.5); RED BLOOD CELL CT 4.16 /CUMM (4.70-6.10)
[2016-12-13 08:46] LABS: WHITE BLOOD CELL COUNT 5.4 /CUMM (4.8-10.8)
--- NOTE | 2016-12-13 10:32 | PN- Nephrology ---
Assessment/Plan Assessment: ESRD - Poor PO intake over last couple of weeks - not entirely clear why. Dialysis clearance had been fine prior to that. Likely has lost fat/muscle so that when he brought down to his "dry weight," he is left "volume overloaded." His weight is significantly down. Although his weight got down to 74.3kg, we both agreed that an EDW of 76kg on discharge would be more reasonable. Anemia - Hg at goal. Continuing on Epogen. 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 Lymphadenopathy - Unclear underlying etiology. Not clear that it's related to his weight loss over the last few weeks. Will need to be closely monitored. Suggestion: -Dialysis tomorrow -Tentative plans to discharge with EDW of 76kg -Daily standing weights -Epogen 10,000U TIW with dialysis -Paricalcitol 4mcg TIW -f/u imaging for lymphadenopathy Please call [phone] with ?'s Subjective Subjective: Had dialysis yesterday - 2L UF Weight 74.3kg post HD yesterday Feeling better Objective Vital Signs and I&Os Vital Signs Date Time Temp Pulse Resp B/P Pulse O2 O2 Flow FiO2 Ox Delivery Rate 12/13 0924 92 152/86 12/13 0800 98.0 103 20 174/90 97 Nasal 3.0L Cannula 12/13 0707 99 Nasal 3.0L Cannula 12/13 0000 CPAP 12/12 2223 98.2 102 16 162/72 98 Nasal 3.0L Cannula 12/12 2219 102 162/72 12/12 1856 98 Nasal 3.0L Cannula 12/12 1711 98.5 128 20 148/78 96 Nasal 3.0L Cannula 12/12 1703 128 148/78 12/12 1600 98 Nasal 3.0L Cannula Intake & Output 12/13 1600 12/13 0400 12/12 1600 12/12 0400 12/11 1600 12/11 0400 Intake Total 240 610 260 260 100 480 Output Total 1999 3500 Balance 240 -1390 260 260 100 -3020 Intake, IV 10 20 20 0 Intake, Oral 240 600 240 240 100 480 Number 1 0 Bowel Movements Output, 1999 3500 Dialysate Patient 166 lb 164 lb 166 lb 167 lb 169 lb Weight Physical Exam: Gen - NAD HEENT - supple CV - RRR Chest - b/l rhonchi Abd - soft, nontender Ext - no significant edema Neuro - AOX3 Access - DHRUV AVF +thrill Current Medications: Current Medications Sig/Zoe Start time Last Medication Dose Route Stop Time Status Admin Acetaminophen 500 MG Q6P PRN 12/10 0400 AC PO Acetaminophen/ 1 TAB Q6P PRN 12/10 0400 AC 12/13 Hydrocodone Bitart PO 0007 Albuterol Sulfate 3 ML EVERY 4 HRS/AWAKE 12/11 1999 AC 12/13 INH 0653 Aspirin Buffered 81 MG DAILY 12/10 1000 AC 12/13 PO 0924 Atorvastatin Calcium 40 MG DAILY 12/10 1000 AC 12/13 PO 0924 Azithromycin 500 MG DAILY 12/11 1000 AC 12/13 Sodium Chloride 250 ML IV 0925 Budesonide/ 2 PUF BID 12/10 1000 AC 12/13 Formoterol Fumarate INH 0924 Docusate Sodium 100 MG DAILY NEEDED PRN 12/10 2345 AC PO Epoetin Ryan 10,000 UNIT Saturday .. 12/10 1300 AC IV Escitalopram Oxalate 10 MG DAILY 12/10 1000 AC 12/10 PO 1022 Heparin Sodium 5,000 UNIT Q8 12/10 06 AC 12/13 (Porcine) SC 0523 Ipratropium [place] 2.5 ML EVERY 4 HRS/AWAKE 12/11 1999 AC 12/13 INH 0653 Methylprednisolone 40 MG Q8H 12/11 1715 AC 12/13 IV 0924 Metoprolol Tartrate 50 MG BID 12/10 1000 AC 12/13 PO 0924 Omeprazole 40 MG DAILY AC 12/10 0700 AC 12/13 PO 0523 Paricalcitol 4 MCG Saturday .. 12/12 1000 AC IV Roflumilast 500 MCG DAILY 12/10 1000 AC 12/13 PO 0924 Senna 187 MG AT BEDTIME 12/11 2200 AC 12/12 PO 2219 Results Pertinent Lab Results: Laboratory Tests 12/13 12/12 12/12 0651 1545 1400 Chemistry Sodium (137 - 145 mmol/L) 140 Cancelled Potassium (3.5 - 5.1 mmol/L) 4.0 Cancelled Chloride (98 - 107 mmol/L) 98 Cancelled Carbon Dioxide (22 - 30 mmol/L) 28 Cancelled Anion Gap (5 - 16) 14 Cancelled BUN (9 - 20 mg/dL) 36 H 15 Cancelled Creatinine (0.7 - 1.2 mg/dL) 4.2 H Cancelled Estimated GFR (>60 ml/min) 14 L BUN/Creatinine Ratio (7 - 25 %) 8.6 Cancelled Magnesium (1.6 - 2.3 mg/dL) 2.1 Hematology CBC w Diff NO MAN DIFF REQ WBC (4.8 - 10.8 /CUMM) 5.4 RBC (4.70 - 6.10 /CUMM) 4.16 L Hgb (14.0 - 18.0 G/DL) 11.4 L Hct (42 - 52 %) 35.7 L MCV (80.0 - 94.0 FL) 85.8 MCH (27.0 - 31.0 PG) 27.3 RDW (11.5 - 14.5 %) 16.8 H Plt Count (130 - 400 /CUMM) 196 MPV (7.4 - 10.4 FL) 11.1 H Gran % (42.2 - 75.2 %) 85.7 H Lymphocytes % (20.5 - 51.1 %) 7.7 L Monocytes % (1.7 - 9.3 %) 6.6 Eosinophils % (0 - 5 %) 0 Basophils % (0.0 - 2.0 %) 0 L Absolute Granulocytes (1.4 - 6.5 /CUMM) 4.7 Absolute Lymphocytes (1.2 - 3.4 /CUMM) 0.4 L Absolute Monocytes (0.10 - 0.60 /CUMM) 0.4 Absolute Eosinophils (0.0 - 0.7 /CUMM) 0 Absolute Basophils (0.0 - 0.2 /CUMM) 0 PUBS MCHC (33.0 - 37.0 G/DL) 31.8 L 12/12 12/11 1230 1400 Chemistry Sodium (137 - 145 mmol/L) 138 138 Potassium (3.5 - 5.1 mmol/L) 4.3 4.5 Chloride (98 - 107 mmol/L) 97 L 95 L Carbon Dioxide (22 - 30 mmol/L) 22 26 Anion Gap (5 - 16) 18 H 17 H BUN (9 - 20 mg/dL) 57 H 63 H Creatinine (0.7 - 1.2 mg/dL) 5.6 *H 6.6 *H Estimated GFR (>60 ml/min) 10 L 8 L BUN/Creatinine Ratio (7 - 25 %) 10.2 9.5 Calcium (8.4 - 10.2 mg/dL) 8.4 Phosphorus (2.5 - 4.5 mg/dL) 4.6 H Magnesium (1.6 - 2.3 mg/dL) 2.0 2.0 Albumin (3.5 - 5.0 g/dL) 3.4 L Hematology CBC w Diff NO MAN DIFF REQ NO MAN DIFF REQ WBC (4.8 - 10.8 /CUMM) 2.6 L 6.3 RBC (4.70 - 6.10 /CUMM) 3.76 L 3.69 L Hgb (14.0 - 18.0 G/DL) 10.1 L 10.0 L Hct (42 - 52 %) 32.5 L 32.2 L MCV (80.0 - 94.0 FL) 86.4 87.2 MCH (27.0 - 31.0 PG) 27.0 27.1 RDW (11.5 - 14.5 %) 17.3 H 17.3 H Plt Count (130 - 400 /CUMM) 151 152 MPV (7.4 - 10.4 FL) 11.3 H 11.2 H Gran % (42.2 - 75.2 %) 84.9 H 86.1 H Lymphocytes % (20.5 - 51.1 %) 8.9 L 5.3 L Monocytes % (1.7 - 9.3 %) 6.1 8.4 Eosinophils % (0 - 5 %) 0.1 0 Basophils % (0.0 - 2.0 %) 0 L 0.2 Absolute Granulocytes (1.4 - 6.5 /CUMM) 2.2 5.4 Absolute Lymphocytes (1.2 - 3.4 /CUMM) 0.2 L 0.3 L Absolute Monocytes (0.10 - 0.60 /CUMM) 0.2 0.5 Absolute Eosinophils (0.0 - 0.7 /CUMM) 0 0 Absolute Basophils (0.0 - 0.2 /CUMM) 0 0 PUBS MCHC (33.0 - 37.0 G/DL) 31.3 L 31.1 L 12/11 12/10 0630 1203 Chemistry Sodium (137 - 145 mmol/L) 138 Potassium (3.5 - 5.1 mmol/L) 4.8 Chloride (98 - 107 mmol/L) 97 L Carbon Dioxide (22 - 30 mmol/L) 23 Anion Gap (5 - 16) 19 H BUN (9 - 20 mg/dL) 59 H Creatinine (0.7 - 1.2 mg/dL) 5.9 *H Estimated GFR (>60 ml/min) 9 L BUN/Creatinine Ratio (7 - 25 %) 10.0 Hematology CBC w Diff NO MAN DIFF REQ WBC (4.8 - 10.8 /CUMM) 6.4 RBC (4.70 - 6.10 /CUMM) 3.79 L Hgb (14.0 - 18.0 G/DL) 10.2 L Hct (42 - 52 %) 32.8 L MCV (80.0 - 94.0 FL) 86.5 MCH (27.0 - 31.0 PG) 27.0 RDW (11.5 - 14.5 %) 17.5 H Plt Count (130 - 400 /CUMM) 154 MPV (7.4 - 10.4 FL) 11.4 H Gran % (42.2 - 75.2 %) 84.7 H Lymphocytes % (20.5 - 51.1 %) 6.3 L Monocytes % (1.7 - 9.3 %) 8.9 Eosinophils % (0 - 5 %) 0.1 Basophils % (0.0 - 2.0 %) 0 L Absolute Granulocytes (1.4 - 6.5 /CUMM) 5.4 Absolute Lymphocytes (1.2 - 3.4 /CUMM) 0.4 L Absolute Monocytes (0.10 - 0.60 /CUMM) 0.6 Absolute Eosinophils (0.0 - 0.7 /CUMM) 0 Absolute Basophils (0.0 - 0.2 /CUMM) 0 PUBS MCHC (33.0 - 37.0 G/DL) 31.3 L Serology Hep Bs Antigen (NONREACTIVE) NONREACTIVE Hep Bs Antibody (NONREACTIVE) NONREACTIVE 12/10 1200 Chemistry Troponin I Cancelled Imaging/Other Studies: TTE CONCLUSIONS 1. This was a technically difficult examination. 2. MIld aortic sclerosis is present with no valvular stenosis or insufficiency. 3. Mitral leaflet thickening is present with mild to moderate anular calcification and moderate mitral insufficiency with left atrial enlargement. 4. THere is no significant pericardial fluid present. 5. The left ventricular chamber size is normal with mild concentric hypertrophy and global hypokinesia with an ejection fraction of 40- 45%, 6. The right heart structures were not optimally visualized. Mild to moderate tricuspid insufficiency is present with an estimated RV systolic pressure of 48 mmHg.
[2016-12-13 11:16] VITALS: BP 140/80
--- NOTE | 2016-12-13 15:09 | Discharge Summary ---
Visit Information Visit Dates Admission Date: 12/10/16 Discharge Date: 12/14/2016 Hospital Course Course Attending Physician: JUAN BUTCHER MD Primary Care Physician: SARITA MONTES,CYNDI Barron Consulting Request: 1 Consulting Specialty: Nephrology Consulting Physician: Dr. Muñoz Reason for Consult: end-stage renal disease and urinalysis Consulting Request: 2 Consulting Specialty: Cardiology Consulting Physician: Dr. Recio Reason for Consult: fluid overload Hospital Course: 71 year old man, with a past medical history of chronic hypoxic respiratory failure, COPD on 2L O2, LLUVIA on CPAP, CAD s/p stent, pulmonary hypertension, ESRD on dialysis (M/W/F), last admitted for COPDE in Sep 2016, presented with worsening exertional dyspnea, left sided pleuritic chest pain, cough productive of yellow phlegm and failed recent outpatient antibiotic therapy with Z-jessica for bronchitis/pneumonia. He had to increase his O2 from 2 to 4L to help him breathe better. He was dialysed 2 days prior to current admission with dry weight 83.5, removed approximately 1.5 liters. he is dialysis dependent and doesnot make urine. Vitals in admission were stable except for tachycardia and hypoxia. Labs: no leukocytosis, elevated D-dimer, K 5.3, BUN 81, creat 8.6, trop neg, proBNP [id number]. EKG: sinus tachycardia, PACs. CXR: cardiomegaly with vascular congestion. Right lung base opacification with pleural effusion. CTA: no PE, moderate right and small left pleural effusions with associated airspace disease. Interval increase in mediastinal LN, may need PET/CT. Echo (2017): EF 40-45%. He was admitted to tele floor. Problem List: 1. Acute on chronic hypoxic respiratory failure secondary to COPD exacerbation: The patient presented with pleuritic chest pain, exertional dyspneoa and cough, with a component of some fluid overload (history of mild decrease in systolic function with the last ejection fraction of 40% in September 2016) in the setting of end-stage renal disease. He was started on IV ceftriaxone and Azithromycin for Community Acquired pneumonia but were discontinued the next day due to lack of evidence of an infection on Chest CT, afebrilem non productive cough and presence of wheezing. He was treated for an execerbation of COPD and started on IV Solumedrol 40 mg Q8h, with transition to PO prednisone after his symptoms improved. Was also maintained on IV Azithromycin. CTA ruled out PE. He was also maintained on TRC Nebs and inhalors. 2. Chronic Systolic Congestive Heart Failure: The patient had a component of fluid overload but was due for his dialysis the day of admission. Clinically he did not appear to be in decompensated heart failure. Previous ECHO in September 2016 showed ejection fraction of 40-45%, ECHO done on 12/11/16 showed similar EF of 40-45%. He doesn ot make urine and is dialysis dependent for congestive heart failure, scheduled Saturday-Saturday- Saturday. He was continued on outpatient dose of Metoprolol. He did not require additional diuresis with diuretics. 3. ESRD on hemodialysis: He is normally scheduled for dialysis Saturday, however he had anadditional day of HD while in the hospital to remove fluid and maintain a EDW of 76kg. He was continued on Epogen 10,000U TIW with dialysis, Paricalcitol 4mcg TIW. Nephrology was on board. 4. Mediasinal Lynphadenopathy: CTA identified several mediastinal lymph nodes, increased in size from prior exam. There was a superior right paratracheal lymph node measuring approximately 2.0 x 1.0 cm. There was a lower pretracheal lymph node measuring approximately 1.5 x 1.4 cm. There was a lower right paratracheal conglomeration of lymph nodes measuring approximately 3.2 x 1.7. They coudl be reactive vs additional pathology. THey need to be followed up with serial CT scans as an outpatient. Recommended to follow up with out patient note taker, Dr. Belle. 5. CAD status post setnts He was continue his aspirin statins and beta blockers 6. Obstructive sleep apnea CPAP at night DVT px with SC heparin FULL CODE Allergies: Coded Allergies: venom-honey bee (bee venom (honey bee)) (Severe, ANAPHYLAXIS 12/09/16) Penicillins (Intermediate, RASH 12/09/16) Pertinent Lab Results: Laboratory Tests 12/13/16 0651: Anion Gap 14, Estimated GFR 14 L, BUN/Creatinine Ratio 8.6, Magnesium 2.1, CBC w Diff NO MAN DIFF REQ, RBC 4.16 L, MCV 85.8, MCH 27.3, RDW 16.8 H, MPV 11.1 H, Gran % 85.7 H, Lymphocytes % 7.7 L, Monocytes % 6.6, Eosinophils % 0, Basophils % 0 L, Absolute Granulocytes 4.7, Absolute Lymphocytes 0.4 L, Absolute Monocytes 0.4, Absolute Eosinophils 0, Absolute Basophils 0, PUBS MCHC 31.8 L 12/12/16 1545: 12/12/16 1400: Sodium Cancelled, Potassium Cancelled, Chloride Cancelled, Carbon Dioxide Cancelled, Anion Gap Cancelled, BUN Cancelled, Creatinine Cancelled, BUN/ Creatinine Ratio Cancelled 12/12/16 1230: Anion Gap 18 H, Estimated GFR 10 L, BUN/Creatinine Ratio 10.2, Calcium 8.4, Phosphorus 4.6 H, Magnesium 2.0, Albumin 3.4 L, CBC w Diff NO MAN DIFF REQ, RBC 3.76 L, MCV 86.4, MCH 27.0, RDW 17.3 H, MPV 11.3 H, Gran % 84.9 H, Lymphocytes % 8.9 L, Monocytes % 6.1, Eosinophils % 0.1, Basophils % 0 L, Absolute Granulocytes 2.2, Absolute Lymphocytes 0.2 L, Absolute Monocytes 0.2, Absolute Eosinophils 0, Absolute Basophils 0, PUBS MCHC 31.3 L 12/11/16 1400: Anion Gap 17 H, Estimated GFR 8 L, BUN/Creatinine Ratio 9.5, Magnesium 2.0, CBC w Diff NO MAN DIFF REQ, RBC 3.69 L, MCV 87.2, MCH 27.1, RDW 17.3 H, MPV 11.2 H, Gran % 86.1 H, Lymphocytes % 5.3 L, Monocytes % 8.4, Eosinophils % 0, Basophils % 0.2, Absolute Granulocytes 5.4, Absolute Lymphocytes 0.3 L, Absolute Monocytes 0.5, Absolute Eosinophils 0, Absolute Basophils 0, PUBS MCHC 31.1 L 12/11/16 0630: Anion Gap 19 H, Estimated GFR 9 L, BUN/Creatinine Ratio 10.0, CBC w Diff NO MAN DIFF REQ, RBC 3.79 L, MCV 86.5, MCH 27.0, RDW 17.5 H, MPV 11.4 H, Gran % 84.7 H, Lymphocytes % 6.3 L, Monocytes % 8.9, Eosinophils % 0.1, Basophils % 0 L, Absolute Granulocytes 5.4, Absolute Lymphocytes 0.4 L, Absolute Monocytes 0.6, Absolute Eosinophils 0, Absolute Basophils 0, PUBS MCHC 31.3 L Microbiology 12/11 1125 LOWER RESP: Respiratory Culture - COMP 12/11 1124 LOWER RESP: Gram Stain - COMP Disposition Summary Disposition Principal Diagnosis: 1. Acute hypoxic respiratory failure secondary to COPD exacerbation 2. Fluid overload, with no evidence of acute congestive heart failure 3. ESRD on hemodialysis Additional Diagnosis: 1. Mediastinal Lymphadenopathy, increased in size 2. CAD S/P Stents 3. LLUVIA on CPAP Discharge Disposition: home or self care Discharge Instructions General Discharge Information Code Status: Full Code Patient's Diet: Real Dialysis Diet Patient's Activity: As Tolerated Follow-Up Instructions/Appts: 1. Please follow up with your PCP after discharge 2. Please follow up with Dr. Recio after discharge 3. Please follow up with nephro for hemodialysis as scheduled 4. Please continue with steroid taper as prescribed 5. Please follow up with Dr. Belle, outpatient Digital Strategy Manager to follow up on increased size of mediastinal lymphadenopathy Medications at Discharge Discharge Medications: Continue taking these medications: Calcium Acetate (Calcium Acetate) 667 MG TABLET 3 Capsule ORAL WITH MEALS Nephro-Vitamins (Nephro-Angie Tablet) 0.8 MG TABLET 1 Tablet ORAL DAILY Comments: NOT GIVEN Budesonide/Formoterol Fumarate (Symbicort 160-4.5 Mcg Inhaler) 10.2 GM HFA.AER.AD 2 Puff Inhale through mouth TWICE DAILY Qty = 1 Comments: Last Taken:12/14/16 Time: 1200PM Albuterol Sulfate (Albuterol Sulfate) 2.5 MG/3 ML VIAL.NEB 1 Vial Inhale Solution EVERY 4 HOURS NEEDED Comments: Last Taken: 12/14/16 Time: 1200PM Roflumilast (Daliresp) 500 MCG TABLET 1 Tablet ORAL DAILY Qty = 90 Comments: Last Taken: 12/14/16 Time: 1200PM Albuterol Sulfate (Proair Hfa) 8.5 GM HFA.AER.AD 2 Puff Inhale through mouth as needed for COPD Comments: NOT GIVEN IN HOSPITAL Ipratropium/Albuterol Sulfate (Combivent Respimat Inhal [place]) 4 GM MIST.INHAL 1 PUFF Inhale through mouth 4 TIMES A DAY Comments: NOT GIVEN Metoprolol Tartrate (Metoprolol Tartrate) 50 MG TABLET 50 Milligram ORAL TWICE DAILY Qty = 30 Comments: Last Taken: 12/14/16 Time: 1200PM Pantoprazole Sodium (Pantoprazole Sodium) 40 MG TABLET.DR 1 Tablet ORAL DAILY Qty = 30 Comments: NOT GIVEN Aspirin (Lo-Dose Aspirin EC) 81 MG TABLET.DR 1 Tablet ORAL DAILY Qty = 90 Comments: Last Taken:12/14/16 Time: 1200PM Atorvastatin Calcium (Atorvastatin Calcium) 40 MG TABLET 1 Tablet ORAL DAILY Qty = 90 Comments: Last Taken:12/14/16 Time: 1200PM Oxycodone HCl/Acetaminophen (Oxycodone-Acetaminophen 10-325) 10 MG-325 MG TABLET 1 Tablet ORAL THREE TIMES DAILY as needed for PAIN Qty = 90 Comments: VICODIN GIVEN 1245PM 12/14/16 Escitalopram Oxalate (Escitalopram Oxalate) 10 MG TABLET 1 Tablet ORAL DAILY Qty = 60 Start taking the following new medications: Prednisone (Prednisone) 10 MG TABLET 0 ORAL SEE INSTRUCTIONS Qty = 30 No Refills Instructions: On Take 12/15-12/16 40 MG (4 TABLETS DAILY X 2 DAYS) 12/17-12/19 30 MG (3 TABLETS DAILY X 3 DAYS) 12/20-12/22 20 MG (2 TABLETS DAILY X 3 DAYS 12/23-12/25 10 MG (1 TABLET DAILY X 3 DAYS) Then Stop Comments: Last Taken:12/14/16 Time: 1200PM Copies To: GUADALUPE MONTES,JUAN; KIM MONTES,AHSAN Meza; LOLA MONTES,EARLINE Stallings; SARITA MONTES,CYNDI Barron; ERICA MONTES,Anne LAZCANO
--- NOTE | 2016-12-13 15:12 | Patient Discharge Instructions ---
Discharge Instructions General Discharge Information You were seen/treated for: 1. COPD exacerbation 2. Fluid overload 3. End-stage renal disease on hemodialysis Special Instructions: 1. Please follow up with your PCP after discharge 2. Please follow up with Dr. Recio after discharge 3. Please follow up with nephro for hemodialysis as scheduled 4. Please continue with steroid taper as prescribed 5. Please follow up with Dr. Belle, your outpatient Hotel Front Desk Agent to follow up on Lymphnodes found in the lungs Diet Continue normal diet: No Recommended Diet: Heart Healthy, Renal Dialysis Activity Full Activity/No Limits: Yes Acute Coronary Syndrome Inclusion Criteria At DC or during hospital stay patient has or had the following: ACS DIAGNOSIS No Discharge Core Measures Meds if any: Prescribed or Continued at Discharge Meds if any: NOT Prescribed or Continued at Discharge Congestive Heart Failure Inclusion Criteria At DC or during hospital stay patient has or had the following: CHF DIAGNOSIS No Discharge Core Measures Meds if any: Prescribed or Continued at Discharge Meds if any: NOT Prescribed or Continued at Discharge Cerebrovascular accident Inclusion Criteria At DC or during hospital stay patient has or had the following: CVA/TIA Diagnosis No Discharge Core Measures Meds if any: Prescribed or Continued at Discharge Meds if any: NOT Prescribed or Continued at Discharge Venous thromboembolism Inclusion Criteria VTE Diagnosis No VTE Type NONE VTE Confirmed by (Test) NONE Discharge Core Measures - Per Current guidelines, there needs to be overlap - treatment for the first 5 days of Warfarin therapy. - If discharged on Warfarin prior to 5 days of - overlap therapy, the patient will need to be - assessed for post discharge needs including - *Post discharge parental anticoagulation - *Warfarin and/or parental anticoagulation education - *Follow up date to check INR post discharge At least 5 days overlap therapy as Inpatient No Meds if any: Prescribed or Continued at Discharge Note: Overlap Therapy is Warfarin and Anticoagulant Meds if any: NOT Prescribed or Continued at Discharge
[2016-12-13] MEDS ORDERED: PREDNISONE10 M2 PO (15:19)
[2016-12-13 22:37] VITALS: BP 160/98
[2016-12-14 06:59] VITALS: BP 130/86
--- NOTE | 2016-12-14 07:12 | PN- Housestaff ---
ALBERT MONTES,[facility] 12/14/16 0711: Subjective Follow-up For: 1. Acute Hypoxic Resp Failure secondary to COPD exacerbation 2. Fluid overload 3. End-stage renal disease on hemodialysis Subjective: Today he reported feeling a lot better than before, is at 2 liters of oxygen by NC which is his baseline, markedly decreased wheezing, minimal pain below the left rib which has been there for several weeks, especially when he coughs, no chest pains, intermittent dyspnea on exertion, cough is improving, no sputum. No fever or chills. Review of Systems Constitutional: Reports: see HPI. Cardiovascular: Reports: no symptoms. Respiratory: Reports: cough, short of breath, wheezing. Gastrointestinal: Reports: no symptoms. Genitourinary: Reports: no symptoms. Musculoskeletal: Reports: see HPI. Objective Last 24 Hrs of Vital Signs/I&O Vital Signs Date Time Temp Pulse Resp B/P Pulse O2 O2 Flow FiO2 Ox Delivery Rate 12/14 0735 95 Nasal 2.0L Cannula 12/14 0713 97 Nasal 2.0L Cannula 12/14 0659 97.8 107 20 130/86 96 Nasal 2.0L Cannula 12/14 0000 CPAP 12/13 2237 97.8 64 20 160/98 96 Nasal 2.0L Cannula 12/13 2209 64 160/98 12/13 1645 99 Nasal 3.0L Cannula 12/13 1600 99 Nasal 2.0L Cannula 12/13 1227 95 Nasal 3.0L Cannula 12/13 1116 98.3 91 16 140/80 97 Nasal 3.0L Cannula 12/13 0924 92 152/86 Intake & Output 12/14 1600 12/14 0800 12/14 0000 Intake Total 240 600 Output Total Balance 240 600 Intake, Oral 240 600 Patient 163 lb Weight Physical Exam General Appearance: Alert, Oriented X3, Cooperative, No Acute Distress Cardiovascular: Regular Rate, Normal S1, Normal S2, No Murmurs Lungs: wheezing markedly improved Abdomen: Normal Bowel Sounds, Soft, No Tenderness, No Hepatospenomegaly Neurological: Normal Gait, Normal Speech, Strength at 5/5 X4 Ext, Normal Tone Extremities: Normal Pulses, bilateral ankle edema Current Medications: Current Medications Sig/Zoe Start time Last Medication Dose Route Stop Time Status Admin Acetaminophen 500 MG Q6P PRN 12/10 0400 AC PO Acetaminophen/ 1 TAB Q6P PRN 12/10 0400 AC 12/13 Hydrocodone Bitart PO 0007 Albuterol Sulfate 3 ML EVERY 4 HRS/AWAKE 12/11 1999 AC 12/14 INH 0657 Aspirin Buffered 81 MG DAILY 12/10 1000 AC 12/13 PO 0924 Atorvastatin Calcium 40 MG DAILY 12/10 1000 AC 12/13 PO 0924 Azithromycin 500 MG DAILY 12/11 1000 AC 12/13 Sodium Chloride 250 ML IV 0925 Budesonide/ 2 PUF BID 12/10 1000 AC 12/13 Formoterol Fumarate INH 2209 Docusate Sodium 100 MG DAILY NEEDED PRN 12/10 2345 AC PO Epoetin Ryan 10,000 UNIT Saturday .. 12/10 1300 AC IV Escitalopram Oxalate 10 MG DAILY 12/10 1000 AC 12/10 PO 1022 Heparin Sodium 5,000 UNIT Q8 12/10 0600 AC 12/14 (Porcine) SC 0556 Ipratropium Hood 2.5 ML EVERY 4 HRS/AWAKE 12/11 1999 AC 12/14 INH 0659 Methylprednisolone 40 MG Q12 12/13 2200 DC 12/13 IV 12/13 220 2209 Methylprednisolone 40 MG Q8H 12/11 1715 DC 12/13 IV 0924 Metoprolol Tartrate 50 MG BID 12/10 1000 AC 12/13 PO 2209 Omeprazole 40 MG DAILY AC 12/10 0700 AC 12/14 PO 0555 Paricalcitol 4 MCG Saturday .. 12/12 1000 AC IV Prednisone 40 MG DAILY 12/14 1000 AC PO Roflumilast 500 MCG DAILY 12/10 1000 AC 12/13 PO 0924 Senna 187 MG AT BEDTIME 12/11 2200 AC 12/12 PO 2219 Last 24 Hrs of Lab/Jesus Results Last 24 Hrs of Labs/Mics: Laboratory Tests 12/14/16 0755: Sodium Pending, Potassium Pending, Chloride Pending, Carbon Dioxide Pending, Anion Gap Pending, BUN Pending, Creatinine Pending, BUN/Creatinine Ratio Pending , Glucose Pending, Calcium Pending, CBC w Diff Pending, WBC Pending, RBC Pending , Hgb Pending, Hct Pending, MCV Pending, MCH Pending, RDW Pending, Plt Count Pending, MPV Pending, PUBS MCHC Pending Lines/Diet/Fluids Lines: peripheral lines Restraints: none Assessment/Plan Assessment: 71-year-old male with past medical history of CAD/stents, COPD on home oxygen, presents to ED with c/o shortness of breath and chest tightness secondary to ? community-acquired pneumonia as seen in chest x-ray, but CAT scan showed some airspace disease with Small left pleural effusion with associated respiratory disease. He was started on ceftriaxone and azithromycin for community-acquired pneumonia in the ED. 1. Acute on chronic hypoxic respiratory failure secondary to COPD exacerbation along with some fluid overload (history of mild decrease in systolic function with the last ejection fraction of 40% in September 2016) in the setting of end- stage renal disease -Antibiotics discontinued on 12/10/16 - He has been transitioned to PO prednisone today - Markedly improved symptoms of SOB,w heezing and cough - DC today after HD 2. Systolic congestive heart failure: - Patient does not appear to be in decompensated heart failure at this time - ECHO on this admission EF of 40-45% - He does not make urine, and dialysis dependent for congestive heart failure - Follows Saturday schedule for dialysis - We'll continue his metoprolol aspirin and statins. 3. ESRD on hemodialysis -Currently on Saturday schedule - Nephrology on board - HD today, DC after that 4. CAD status post setnts - Continue his aspirin statins and beta blockers 6. Obstructive sleep apnea CPAP at night DVT px with SC heparin FULL CODE Problem List: 1. COPD (chronic obstructive pulmonary disease) 2. ESRD (end stage renal disease) 3. Volume overload Pain Ratin Pain Location: None Pain Goal: Remain pain free Pain Plan: PRN TYlenol Tomorrow's Labs & Rationales: Not needed DVT/Prophylaxis: pharmacological Consulting Request: 1 Consulting Specialty: Cardiology Consulting Physician: Dr. Recio Reason for Consult: fluid overload Consulting Request: 2 Consulting Specialty: Nephrology Consulting Physician: Dr. Melendez Reason for Consult: ESRD on HD, M/W/F Discharge Plan Discharge Disposition: home Stable for Discharge? Yes Anticipated Discharge (Day): today If Discharged Today[facility] Hrs[facility] summary done, CMR done JUAN BUTCHER MD 12/14/16 1401: Attending Review Statement Attending Statement Attending MD Statement: examined this patient, discuss w/resident/PA/CIRCULAR STUFFER, agreed w/resident/PA/CIRCULAR STUFFER, reviewed EMR data (avail)
[2016-12-14 08:22] LABS: ABSOLUTE BASOPHIL COUNT 0 /CUMM (0.0-0.2); ABSOLUTE EOSINOPHIL COUNT 0 /CUMM (0.0-0.7); ABSOLUTE GRANULOCYTE CT 6.6 /CUMM (1.4-6.5); ABSOLUTE LYMPH COUNT 0.6 /CUMM (1.2-3.4); ABSOLUTE MONOCYTE COUNT 0.5 /CUMM (0.10-0.60); BASOPHIL % 0.1 % (0.0-2.0); EOSINOPHIL % 0 % (0-5); HEMATOCRIT 34.4 % (42-52); MEAN CORPUSCULAR HGB CONC 31.4 G/DL (33.0-37.0); MEAN PLATELET VOLUME 10.9 FL (7.4-10.4); RBC DISTRIBUTION WIDTH 16.5 % (11.5-14.5); WHITE BLOOD CELL COUNT 7.7 /CUMM (4.8-10.8)
[2016-12-14 08:42] LABS: GRANULOCYTE % 85.8 % (42.2-75.2); PLATELET COUNT 187 /CUMM (130-400)
--- NOTE | 2016-12-14 10:59 | PN- Nephrology ---
Assessment/Plan Assessment: ESRD - Poor PO intake over last couple of weeks - not entirely clear why. Dialysis clearance had been fine prior to that. Likely has lost fat/muscle so that when he brought down to his "dry weight," he is left "volume overloaded." His weight is significantly down. Although his weight got down to 74kg even before dialysis today, we both agreed that an EDW of 76kg on discharge would be more reasonable (will have clothes/shoes on when weighed at HD unit). Anemia - Hg at goal. Continuing on Epogen. 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 Lymphadenopathy - Unclear underlying etiology. Not clear that it's related to his weight loss over the last few weeks. Will need to be closely monitored. Suggestion: -Dialysis today -Tentative plans to discharge with EDW of 76kg - in speaking to Dr. Weldon, plans for d/c today -Daily standing weights -Epogen 10,000U TIW with dialysis -Paricalcitol 4mcg TIW -f/u imaging for lymphadenopathy Please call [phone] with ?'s Subjective Subjective: Pt seen and examined at dialysis Breathing better Weight was 74kg this AM - set to take off 2L as tolerated Objective Vital Signs and I&Os Vital Signs Date Time Temp Pulse Resp B/P Pulse O2 O2 Flow FiO2 Ox Delivery Rate 12/14 0735 95 Nasal 2.0L Cannula 12/14 0713 97 Nasal 2.0L Cannula 12/14 0659 97.8 107 20 130/86 96 Nasal 2.0L Cannula 12/14 0000 CPAP 12/137 97.8 64 20 160/98 96 Nasal 2.0L Cannula 12/13 2209 64 160/98 12/13 1645 99 Nasal 3.0L Cannula 12/13 1600 99 Nasal 2.0L Cannula 12/13 1227 95 Nasal 3.0L Cannula 12/13 1116 98.3 91 16 140/80 97 Nasal 3.0L Cannula Intake & Output 12/14 1600 12/14 0400 12/13 0400 12/12 040 Intake Total 240 600 720 610 260 260 Output Total 0 1999 Balance 240 600 720 -1390 260 260 Intake, IV 10 20 20 Intake, Oral 240 600 720 600 240 240 Number 1 Bowel Movements Output, 1999 Dialysate Output, Urine 0 Patient 163 lb 166 lb 164 lb 166 lb Weight Physical Exam: Gen - NAD HEENT - supple CV - RRR Chest - clear anteriorly Abd - soft, nontender Ext - no edema Access - DHRUV AVF +thrill Current Medications: Current Medications Sig/Zeo Start time Last Medication Dose Route Stop Time Status Admin Acetaminophen 500 MG Q6P PRN 12/10 0400 AC PO Acetaminophen/ 1 TAB Q6P PRN 12/10 0400 AC 12/13 Hydrocodone Bitart PO 0007 Albuterol Sulfate 3 ML EVERY 4 HRS/AWAKE 12/11 1999 AC 12/14 INH 0657 Aspirin Buffered 81 MG DAILY 12/10 1000 AC 12/13 PO 0924 Atorvastatin Calcium 40 MG DAILY 12/10 1000 AC 12/13 PO 0924 Azithromycin 500 MG DAILY 12/11 1000 AC 12/13 Sodium Chloride 250 ML IV 0925 Budesonide/ 2 PUF BID 12/10 1000 AC 12/13 Formoterol Fumarate INH 220 Docusate Sodium 100 MG DAILY NEEDED PRN 12/10 2345 AC PO Epoetin Ryan 10,000 UNIT Saturday .. 12/10 1300 AC IV Escitalopram Oxalate 10 MG DAILY 12/10 1000 AC 12/10 PO 1022 Heparin Sodium 5,000 UNIT Q8 12/10 06 AC 12/14 (Porcine) SC 0556 Ipratropium Glennie 2.5 ML EVERY 4 HRS/AWAKE 12/11 1999 AC 12/14 INH 0659 Methylprednisolone 40 MG Q12 12/130 DC 12/13 IV 12/13 Metoprolol Tartrate 50 MG BID 12/10 1000 AC 12/13 PO 2209 Omeprazole 40 MG DAILY AC 12/10 0700 AC 12/14 PO 0555 Paricalcitol 4 MCG Saturday .. 12/12 1000 AC IV Prednisone 40 MG DAILY 12/14 1000 AC PO Roflumilast 500 MCG DAILY 12/10 1000 AC 12/13 PO 0924 Senna 187 MG AT BEDTIME 12/11 220 AC 12/12 PO 2219 Results Pertinent Lab Results: Laboratory Tests 12/14 12/13 0755 0651 Chemistry Sodium (137 - 145 mmol/L) 140 140 Potassium (3.5 - 5.1 mmol/L) 4.2 4.0 Chloride (98 - 107 mmol/L) 99 98 Carbon Dioxide (22 - 30 mmol/L) 24 28 Anion Gap (5 - 16) 17 H 14 BUN (9 - 20 mg/dL) 70 H 36 H Creatinine (0.7 - 1.2 mg/dL) 6.7 *H 4.2 H Estimated GFR (>60 ml/min) 8 L 14 L BUN/Creatinine Ratio (7 - 25 %) 10.4 8.6 Glucose (65 - 99 mg/dL) 128 H Calcium (8.4 - 10.2 mg/dL) 9.6 Magnesium (1.6 - 2.3 mg/dL) 2.1 Hematology CBC w Diff NO MAN DIFF REQ NO MAN DIFF REQ WBC (4.8 - 10.8 /CUMM) 7.7 5.4 RBC (4.70 - 6.10 /CUMM) 4.00 L 4.16 L Hgb (14.0 - 18.0 G/DL) 10.8 L 11.4 L Hct (42 - 52 %) 34.4 L 35.7 L MCV (80.0 - 94.0 FL) 86.0 85.8 MCH (27.0 - 31.0 PG) 27.0 27.3 RDW (11.5 - 14.5 %) 16.5 H 16.8 H Plt Count (130 - 400 /CUMM) 187 196 MPV (7.4 - 10.4 FL) 10.9 H 11.1 H Gran % (42.2 - 75.2 %) 85.8 H 85.7 H Lymphocytes % (20.5 - 51.1 %) 8.0 L 7.7 L Monocytes % (1.7 - 9.3 %) 6.1 6.6 Eosinophils % (0 - 5 %) 0 0 Basophils % (0.0 - 2.0 %) 0.1 0 L Absolute Granulocytes (1.4 - 6.5 /CUMM) 6.6 H 4.7 Absolute Lymphocytes (1.2 - 3.4 /CUMM) 0.6 L 0.4 L Absolute Monocytes (0.10 - 0.60 /CUMM) 0.5 0.4 Absolute Eosinophils (0.0 - 0.7 /CUMM) 0 0 Absolute Basophils (0.0 - 0.2 /CUMM) 0 0 PUBS MCHC (33.0 - 37.0 G/DL) 31.4 L 31.8 L 12/12 12/12 12/12 1545 1400 1230 Chemistry Sodium (137 - 145 mmol/L) Cancelled 138 Potassium (3.5 - 5.1 mmol/L) Cancelled 4.3 Chloride (98 - 107 mmol/L) Cancelled 97 L Carbon Dioxide (22 - 30 mmol/L) Cancelled 22 Anion Gap (5 - 16) Cancelled 18 H BUN (9 - 20 mg/dL) 15 Cancelled 57 H Creatinine (0.7 - 1.2 mg/dL) Cancelled 5.6 *H Estimated GFR (>60 ml/min) 10 L BUN/Creatinine Ratio (7 - 25 %) Cancelled 10.2 Calcium (8.4 - 10.2 mg/dL) 8.4 Phosphorus (2.5 - 4.5 mg/dL) 4.6 H Magnesium (1.6 - 2.3 mg/dL) 2.0 Albumin (3.5 - 5.0 g/dL) 3.4 L Hematology CBC w Diff NO MAN DIFF REQ WBC (4.8 - 10.8 /CUMM) 2.6 L RBC (4.70 - 6.10 /CUMM) 3.76 L Hgb (14.0 - 18.0 G/DL) 10.1 L Hct (42 - 52 %) 32.5 L MCV (80.0 - 94.0 FL) 86.4 MCH (27.0 - 31.0 PG) 27.0 RDW (11.5 - 14.5 %) 17.3 H Plt Count (130 - 400 /CUMM) 151 MPV (7.4 - 10.4 FL) 11.3 H Gran % (42.2 - 75.2 %) 84.9 H Lymphocytes % (20.5 - 51.1 %) 8.9 L Monocytes % (1.7 - 9.3 %) 6.1 Eosinophils % (0 - 5 %) 0.1 Basophils % (0.0 - 2.0 %) 0 L Absolute Granulocytes (1.4 - 6.5 /CUMM) 2.2 Absolute Lymphocytes (1.2 - 3.4 /CUMM) 0.2 L Absolute Monocytes (0.10 - 0.60 /CUMM) 0.2 Absolute Eosinophils (0.0 - 0.7 /CUMM) 0 Absolute Basophils (0.0 - 0.2 /CUMM) 0 PUBS MCHC (33.0 - 37.0 G/DL) 31.3 L 12/11 1400 Chemistry Sodium (137 - 145 mmol/L) 138 Potassium (3.5 - 5.1 mmol/L) 4.5 Chloride (98 - 107 mmol/L) 95 L Carbon Dioxide (22 - 30 mmol/L) 26 Anion Gap (5 - 16) 17 H BUN (9 - 20 mg/dL) 63 H Creatinine (0.7 - 1.2 mg/dL) 6.6 *H Estimated GFR (>60 ml/min) 8 L BUN/Creatinine Ratio (7 - 25 %) 9.5 Magnesium (1.6 - 2.3 mg/dL) 2.0 Hematology CBC w Diff NO MAN DIFF REQ WBC (4.8 - 10.8 /CUMM) 6.3 RBC (4.70 - 6.10 /CUMM) 3.69 L Hgb (14.0 - 18.0 G/DL) 10.0 L Hct (42 - 52 %) 32.2 L MCV (80.0 - 94.0 FL) 87.2 MCH (27.0 - 31.0 PG) 27.1 RDW (11.5 - 14.5 %) 17.3 H Plt Count (130 - 400 /CUMM) 152 MPV (7.4 - 10.4 FL) 11.2 H Gran % (42.2 - 75.2 %) 86.1 H Lymphocytes % (20.5 - 51.1 %) 5.3 L Monocytes % (1.7 - 9.3 %) 8.4 Eosinophils % (0 - 5 %) 0 Basophils % (0.0 - 2.0 %) 0.2 Absolute Granulocytes (1.4 - 6.5 /CUMM) 5.4 Absolute Lymphocytes (1.2 - 3.4 /CUMM) 0.3 L Absolute Monocytes (0.10 - 0.60 /CUMM) 0.5 Absolute Eosinophils (0.0 - 0.7 /CUMM) 0 Absolute Basophils (0.0 - 0.2 /CUMM) 0 PUBS MCHC (33.0 - 37.0 G/DL) 31.1 L Imaging/Other Studies: TTE CONCLUSIONS 1. This was a technically difficult examination. 2. MIld aortic sclerosis is present with no valvular stenosis or insufficiency. 3. Mitral leaflet thickening is present with mild to moderate anular calcification and moderate mitral insufficiency with left atrial enlargement. 4. THere is no significant pericardial fluid present. 5. The left ventricular chamber size is normal with mild concentric hypertrophy and global hypokinesia with an ejection fraction of 40- 45%, 6. The right heart structures were not optimally visualized. Mild to moderate tricuspid insufficiency is present with an estimated RV systolic pressure of 48 mmHg.
[2016-12-14 11:56] VITALS: BP 130/88
[2016-12-14 12:00] VITALS: BP 130/88
== END 2016-12-14 13:14 | DRG 189 ==
LOC: CANRESERV → ENRESERVTM → ENRESERVDT → ERH 23:27 → 1NO 12-10 02:04 → ERHI 12-10 02:04 → 2NB 12-10 02:04 → ENPENDDIS 12-10 02:04 → 1NO 12-10 14:22 → 2NB 12-13 11:10
PROVIDERS: Internal Medicine; Internal Medicine Hematology & Oncology; Internal Medicine Nephrology; Pediatrics; Student in an Organized Health Care Education/Training Program; ADMIT Student in an Organized Health Care Education/Training Program
PROC: 5A1D60Z (ICD-10-PCS; principal; 2016-12-10)
DX: J96.21 Acute and chronic respiratory failure with hypoxia (principal); I13.2 Hypertensive heart and chronic kidney disease with heart failure and with stage 5 chronic kidney disease, or end stage renal disease; N18.6 End stage renal disease; E11.22 Type 2 diabetes mellitus with diabetic chronic kidney disease; J44.1 Chronic obstructive pulmonary disease with (acute) exacerbation; I27.2 Other secondary pulmonary hypertension; I50.22 Chronic systolic (congestive) heart failure; Z99.81 Dependence on supplemental oxygen; D46.9 Myelodysplastic syndrome, unspecified; I25.10 Atherosclerotic heart disease of native coronary artery without angina pectoris; Z95.5 Presence of coronary angioplasty implant and graft; G47.33 Obstructive sleep apnea (adult) (pediatric); F41.9 Anxiety disorder, unspecified; D63.1 Anemia in chronic kidney disease; Z99.2 Dependence on renal dialysis; R59.0 Localized enlarged lymph nodes; Z87.891 Personal history of nicotine dependence
CPT/HCPCS: 1NP; 2NBP; 36415; 82436; 87040; 87070; 93005; 93010; 93308; 93321; 96374; 99291; J0456; J0696; J0885; J1644; J2920; J2930; J3490; J7040

== ENCOUNTER 2017-01-25 15:37 | Inpatient (IN) | payer OTHER ==
[~2017-01-25] VITALS: Ht 167.6 cm; Wt 71.8 kg
--- NOTE | 2017-01-25 15:44 | ED DYSPNEA/ASTHMA COMPLAINT ---
History of Present Illness General Chief Complaint: Dyspnea (COPD, CHF, Other) Stated Complaint: BIBA FOR DIFF BREATHING Source: patient, old records Exam Limitations: no limitations Vital Signs & Intake/Output Vital Signs & Intake/Output Vital Signs Date Time Temp Pulse Resp B/P B/P Pulse O2 O2 Flow FiO2 Mean Ox Delivery Rate 01/25 2154 Nasal 3.0L Cannula 01/25 2035 98.6 60 20 108/60 95 Nasal 4.0L Cannula 01/25 2034 Nasal 4.0L Cannula 01/25 2002 106 125/58 01/25 2001 97.9 106 20 125/58 98 Nasal 4.0L Cannula 01/25 1828 98.2 01/26 1828 98.2 110 20 116/62 97 Nasal 4.0L Cannula 01/25 1725 110 25 114/56 96 Nasal 4.0L Cannula 01/25 1653 128 115/70 01/25 1645 134 22 115/72 97 Room Air Room Air 01/25 1624 110 114/62 01/25 1620 97 Nasal 4.0L Cannula 01/25 1612 110 114/62 01/25 1609 122 24 96 Nasal 4.0L Cannula 01/25 1600 100.5 144 24 116/60 89 Nasal 2.0L Cannula Allergies Coded Allergies: venom-honey bee (bee venom (honey bee)) (Severe, ANAPHYLAXIS 01/25/17) Penicillins (Intermediate, RASH 01/25/17) Reconcile Medications Aclidinium Fertile (Tudorza Pressair) 400 MCG/ACTUATION AER.POW.BA 1 PUFF INH BID COPD (Reported) Albuterol Sulfate 2.5 MG/3 ML VIAL.NEB 1 Vial INH/ROSALINDA Q4P COPD (Reported) Albuterol Sulfate (Proair Hfa) 8.5 GM HFA.AER.AD 2 PUF INH PRN COPD (Reported ) Aspirin (Lo-Dose Aspirin EC) 81 MG TABLET.DR 1 TAB PO DAILY HEART/BLOOD ( Reported) Atorvastatin Calcium 40 MG TABLET 1 TAB PO DAILY CHOLESTEROL (Reported) Budesonide/Formoterol Fumarate (Symbicort 160-4.5 Mcg Inhaler) 10.2 GM HFA.AER.AD 2 PUF INH BID COPD Calcium Acetate 667 MG TABLET 3 CAP PO WM KIDNEYS (Reported) Escitalopram Oxalate 10 MG TABLET 1 TAB PO DAILY ANXIETY (Reported) Ipratropium/Albuterol Sulfate (Combivent Respimat Inhal [place]) 4 GM MIST.INHAL 1 PUFF INH 4 TIMES/DAY COPD (Reported) Metoprolol Tartrate 50 MG TABLET 50 MG PO BID HTN Nephro-Vitamins (Nephro-Angie Tablet) 0.8 MG TABLET 1 TAB PO DAILY SUPPLEMENT (Reported) Oxycodone HCl/Acetaminophen (Oxycodone-Acetaminophen 10-325) 10 MG-325 MG TABLET 0.5 TAB PO PRN PAIN (Reported) Pantoprazole Sodium 40 MG TABLET.DR 1 TAB PO DAILY GI (Reported) Roflumilast (Daliresp) 500 MCG TABLET 1 TAB PO DAILY COPD (Reported) Triage Nurses Notes Reviewed? yes Onset: Gradual Duration: constant Timing: recent history Severity: severe Modifying Factors: Improves With: rest. Worsens With: movement. Associated Symptoms: cough HPI: Patient is a 71-year-old male with a past medical history of chronic respiratory failure, COPD on 2 L at all times of oxygen, obstructive sleep apnea on CPAP at night, CAD status post right RCA stent, pulmonary hypertension, end-stage renal failure currently on dialysis Saturday who presents emergency room brought in by ambulance for concerns of a 3 to four-day history of worsening shortness breath dyspnea on exertion white productive cough tactile fevers. Patient however did receive dialysis today where he had improvement of his symptoms however the family was concerned of patient's well-being. Patient denies any chest pain arm pain jaw pain nausea vomiting abdominal pain hemoptysis (ARTURO STACY) Past History Travel History Traveled to [place] past 21 day No Medical History Any Pertinent Medical History? see below for history Neurological: NONE EENT: NONE Cardiovascular: CAD, hypertension, stents, severe pulmonary hypertension Respiratory: asthma, COPD, 2L O2 DEPENDANT CPAP EACH NIGHT Gastrointestinal: NONE Hepatic: hepatic congestion, splenomegaly Renal: ESRD on HD, FISTULA ON L UPPER EXT Musculoskeletal: NONE Psychiatric: NONE Endocrine: HX DIABETES Blood Disorders: myelodysplastic syndrome. Cancer(s): NONE DEHYDRATION UNIT OPERATOR/Reproductive: NONE History of MRSA: No History of VRE: No History of CDIFF: No Influenza Vaccine: 07/03/16 Surgical History Surgical History: cholecystectomy, AV FISTULA LUE Psychosocial History Who do you live with Spouse Services at Home Oxygen What is your primary language Swazi Family History Family History, If Any: FATHER (CKD on HD, CAD, NH, DM). MOTHER (CKD on HD, CAD, NH, DM). FATHER (CKD on Hemodialysis, CAD, DM). MOTHER (CKD on Hemodialysis, CAD, NH). Hx Contributory? No (ARTURO STACY) Review of Systems Review of Systems Constitutional: Reports: see HPI. EENTM: Reports: no symptoms. Respiratory: Reports: see HPI. Cardiovascular: Reports: see HPI. Denies: chest pain. GI: Reports: no symptoms. Genitourinary: Reports: no symptoms. Musculoskeletal: Reports: no symptoms. Skin: Reports: no symptoms. Neurological/Psychological: Reports: no symptoms. Hematologic/Endocrine: Reports: no symptoms. Immunologic/Allergic: Reports: no symptoms. All Other Systems: Reviewed and Negative (ARTURO STACY) Physical Exam Physical Exam General Appearance: comfortable Head: atraumatic Eyes: Bilateral: normal appearance, PERRL, EOMI. Ears, Nose, Throat: normal pharynx, normal ENT inspection Neck: normal inspection, supple Respiratory: rhonchi, wheezing, respiratory distress (MILD RESPIRATORY ) Cardiovascular: irregularly irregular Peripheral Pulses: 2+ radial (R), 2+ radial (L) Gastrointestinal: normal bowel sounds, soft, non-tender Extremities: PLUS 1 BILATERAL LOWER EXTREMITY PITTING EDEMA Neurologic/Psych: no motor/sensory deficits, awake, alert, oriented x 3, normal gait Skin: intact, normal color, warm/dry Lymphatic: no anterior cervical ramakrishna Core Measures ACS in differential dx? Yes Severe Sepsis Present: No Septic Shock Present: No (ARTURO STACY) Progress Differential Diagnosis: asthma, AMI, bronchitis, costochondritis, CHF, COPD, musculoskeletal pain, pericarditis, pulmonary embolism, pneumonia, pneumothorax, rib fracture, unstable angina, AFIB Plan of Care: Orders Procedure Date/time Status Renal Dialysis Diet 01/26 B Active PROTHROMBIN TIME 01/26 06 Active CBC WITHOUT DIFFERENTIAL 01/26 06 Active TROPONIN LEVEL 01/25 2200 Active EKG 01/25 2200 Active RT: Evaluation 01/25 2153 Active Pathway - chart 01/26 2116 Active Teach/Educate 01/25 2025 Active Pain Treatment and Response 01/25 2025 Active Nutritional Intake, Monitor 01/25 2025 Active Isolation 01/25 2025 Active Patient Care Conference 01/25 2025 Active Activity/Ambulation 01/25 2025 Active Pathway - chart 05/26 2024 Active ED Holding Orders 01/25 1851 Active Vital Signs 01/25 1851 Complete Vital Signs 01/25 1851 Active Code Status 01/25 1851 Active Patient Data 01/25 1833 Active Admit to inpatient 01/25 1804 Active EKG 01/25 1640 Active Intake & Output 01/25 1623 Active CULTURE,URINE 01/25 1614 Active URINALYSIS 01/25 1614 Active THYROID STIMULATING HORMONE 01/25 1600 Active FREE T4 01/25 1600 Active Telemetry/Head Men'S Golf Coach 01/25 1555 Active LOWER RESPIRATORY CULTURE 01/25 1555 Active BLOOD CULTURE 01/25 1555 Active TROPONIN LEVEL 01/25 1555 Active PARTIAL THROMBOPLASTIN TIME 01/25 1555 Complete PROTHROMBIN TIME 01/25 1555 Complete MAGNESIUM 01/25 1555 Active LACTIC ACID 01/25 1555 Active COMPREHENSIVE METABOLIC PANEL 01/25 1555 Active CBC WITHOUT DIFFERENTIAL 01/25 1555 Complete B-TYPE NATRIURETIC PEP (BNP) 01/25 1555 Active EKG 01/25 1539 Active TRC EVALUATION (GEN) 01/25 UNK Complete THERAPIST ORDERS 01/25 UNK Complete OXYGEN SETUP (GEN) 01/25 UNK Complete Pathway - chart 01/25 UNK Active House Staff 01/25 UNK Active Lab Add-on Test 01/25 UNK Active VTE Mechanical Prophylaxis 01/25 UNK Active Vital Signs 01/25 UNK Complete Intake & Output 01/25 UNK Complete Current Medications Sig/Zoe Start time Last Medication Dose Stop Time Status Admin Azithromycin 500 MG DAILY 01/26 1000 UNVr (Zithromax) Sodium Chloride 250 ML (Normal Saline 0.9%) Albuterol Sulfate 3 ML EVERY 4 HRS/AWAKE 01/26 0800 UNV (Proventil) Ipratropium Fertile 2.5 ML EVERY 4 HRS/AWAKE 01/26 0800 UNV (Atrovent) Omeprazole 40 MG DAILY AC 01/26 0700 UNVr (Prilosec) Budesonide/ 2 PUF BID 01/25 2200 UNVr Formoterol Fumarate (Symbicort) Methylprednisolone 40 MG Q8 01/25 2200 UNVr (Solumedrol) Metoprolol Tartrate 50 MG BID 01/25 2200 UNVr (Lopressor) Polyethylene Glycol 17 GM AT BEDTIME 01/25 2200 UNVr (Miralax) Senna/Docusate Sodium 1 TAB AT BEDTIME 01/25 2200 UNVr (Senokot S) Aspirin Buffered 81 MG DAILY 01/25 2139 UNVr (Ecotrin) Albuterol Sulfate 3 ML Q4P PRN 01/25 2130 UNVr (Proventil) Morphine Sulfate 0.5 MG Q8P PRN 01/25 2130 UNVr (Morphine) Albuterol Sulfate 2 PUF DAILY 01/25 2121 UNVr (Ventolin) Atorvastatin Calcium 40 MG DAILY 01/26 2120 UNVr (Lipitor) Multivitamins 1 TAB DAILY 01/25 2119 UNVr (Nephrocaps) Acetaminophen 650 MG Q6 PRN 01/25 2115 UNVr (Tylenol) Oxycodone HCl 5 MG Q6 PRN 01/25 2115 UNVr (Roxicodone) Laboratory Tests 01/25/17 1855: Lactic Acid Cancelled 01/25/17 1600: Anion Gap 14, Estimated GFR 14 L, BUN/Creatinine Ratio 7.3, Glucose 86, Lactic Acid 1.3, Calcium 8.5, Magnesium 1.7, Total Bilirubin 0.8, AST 23, ALT 39, Alkaline Phosphatase 120, Troponin I 0.06, Fyr-L-Hgcvewbnfql Pept 15830 H, Total Protein 6.7, Albumin 3.6, Globulin 3.1, Albumin/Globulin Ratio 1.2, TSH Pending, Free T4 Pending, PT 15.7 H, INR 1.50 H, APTT 34, CBC w Diff NO MAN DIFF REQ, RBC 3.92 L, MCV 86.2, MCH 26.6 L, RDW 17.5 H, MPV 9.9, Gran % 85.1 H, Lymphocytes % 6.2 L, Monocytes % 8.0, Eosinophils % 0.3, Basophils % 0.4, Absolute Granulocytes 7.0 H, Absolute Lymphocytes 0.5 L, Absolute Monocytes 0.7 H, Absolute Eosinophils 0, Absolute Basophils 0, PUBS MCHC 30.9 L Microbiology 01/25 1715 LOWER RESP: Respiratory Culture - RES 01/25 1715 LOWER RESP: Gram Stain - RES 01/25 1715 BLOOD: Blood Culture - RECD 01/25 161 URINE ROUT: Urine Culture - ORD 01/25 1600 BLOOD: Blood Culture - RECD On initial examination patient noted to have 80% oxygen saturation with 2 L which patient was administered 4 L of nasal cannula oxygenation noted to improvement to 92%. Patient on initial EKG showed concerns of atrial fibrillation RVR at 157 bpm. Patient's initial blood pressure was normotensive for 10 mg of diltiazem was administered patient did have mild improvement to 120 bpm after approximate 5 minutes. Another 10 mg of diltiazem was then administered. Patient's blood pressure was still normotensive. I discussed patient with his embossograph operator Dr. Recio who discussed with me that last week in the office patient was noted to have concerns of atrial fibrillation however it was not a rapid rate in which there was discussion at that time of Holter monitor and there is also a consideration at this time of anticoagulation however there is significant concerns of anticoagulation and patient's end-stage renal dysfunction. I discussed with Dr. Recio that patient will be admitted for his clinical condition and he will consult. Patient after 20 mg of diltiazem was administered he was administered 5 mg of IV metoprolol where approximately 5 minutes he had improvement of his heart rate to be 105-115 bpm however irregular rate still persisted. Patient's blood pressure is still normotensive The Percocet was ordered because patient was complaining of a headache IN WHICH Percocet was ordered because patient was complaining of a headache where he states he takes medication for this Chest x-ray shows concerns of PNA, IV ABX ORDERED Discussed admission with Dr. SANTA who agrees and was aware of admission (MARICRUZ VALDES,ARTURO) Diagnostic Imaging: Viewed by Me: Radiology Read. CXR Impression: RIGHT BASILAR AIRSPACE DISEASE Initial ED EKG: ATRIAL FIBRILLATION 157 BPM Prior EKG: changed Repeat EKG: changed (112 BPM, AFIB) Comments: PATIENT: JAMES NELSON PRESENT AGE: 71 PATIENT ACCOUNT NO: [id number] : 45 LOCATION: [facility] ORDERING PHYSICIAN: ARTURO VALDES SERVICE DATE: 01/25/17-1204 EXAM TYPE: RAD - XRY-PORTABLE CHEST XRAY EXAMINATION: XR PORTABLE CHEST CLINICAL INFORMATION: Cough and shortness of breath COMPARISON: 12/10/[address] from 01/08/2017. TECHNIQUE: Portable frontal view of the chest was obtained. FINDINGS: Cardiac leads overlie the chest. The lungs are well expanded. There is a right basilar airspace opacity. No pleural effusion or pneumothorax. The cardiomediastinal silhouette is unchanged, with a tortuous and calcified aorta. Bilateral hilar prominence. IMPRESSION: Right basilar airspace opacity suspicious for pneumonia. This likely correlates to the appearance on prior PET/CT, likely increased. Hilar prominence may be associated with prominent vasculature. DICTATED BY: HANSA TSE MD DATE/TIME DICTATED:01/25/171639 (ARTURO STACY) Departure Departure Disposition: STILL A PATIENT Condition: Fair Clinical Impression Primary Impression: Pneumonia Secondary Impressions: Atrial fibrillation, Chronic renal failure, COPD (chronic obstructive pulmonary disease) Referrals: SARITA MONTES,CYNDI Barron (PCP/Family) Departure Forms: Customer Survey General Discharge Information Admission Note Spoke With: JUAN BUTCHER MD Documentation of Exam: Documentation of any treatments & extenuating circumstances including Concerns Regarding Discharge (functional status, medication knowledge or non-compliance, living conditions, etc.) that warrant an admission rather than observation: [ Discussed patient with Dr. BUTCHER who agrees with telemetry admission for concerns of rapid A. fib, pneumonia, COPD. Patient REQUIRES telemetry monitoring, cardiology consultation, IV antibiotics, nephrology consultation and pulmonary consultation. Patient also requires evaluation of possible anticoagulation therapy for continued intermittent atrial fibrillation.] (ARTURO STACY) PA/SEMICONDUCTOR PROCESSING TECHNICIAN Co-Sign Statement Statement: ED Attending supervision documentation- [X] I saw and evaluated the patient. I have also reviewed all the pertinent lab results and diagnostic results. I agree with the findings and the plan of care as documented in the PA's/SEMICONDUCTOR PROCESSING TECHNICIAN's documentation. [X] I have reviewed the ED Record and agree with the PA's/SEMICONDUCTOR PROCESSING TECHNICIAN's documentation. [] Additions or exceptions (if any) to the PAs/SEMICONDUCTOR PROCESSING TECHNICIAN's note and plan are summarized below: [] (ARINA MONTES,RONY) Critical Care Note Critical Care Note Critical Care Time: 30-74 min (ARTURO STACY)
[2017-01-25 16:24] LABS: ABSOLUTE BASOPHIL COUNT 0 /CUMM (0.0-0.2); ABSOLUTE EOSINOPHIL COUNT 0 /CUMM (0.0-0.7); ABSOLUTE LYMPH COUNT 0.5 /CUMM (1.2-3.4); ABSOLUTE MONOCYTE COUNT 0.7 /CUMM (0.10-0.60); BASOPHIL % 0.4 % (0.0-2.0); EOSINOPHIL % 0.3 % (0-5); HEMATOCRIT 33.8 % (42-52); MEAN CORPUSCULAR HGB 26.6 PG (27.0-31.0); MEAN CORPUSCULAR HGB CONC 30.9 G/DL (33.0-37.0); MEAN CORPUSCULAR VOLUME 86.2 FL (80.0-94.0); MEAN PLATELET VOLUME 9.9 FL (7.4-10.4); PLATELET COUNT 207 /CUMM (130-400); RBC DISTRIBUTION WIDTH 17.5 % (11.5-14.5); RED BLOOD CELL CT 3.92 /CUMM (4.70-6.10); WHITE BLOOD CELL COUNT 8.2 /CUMM (4.8-10.8)
[2017-01-25] MEDS ORDERED: TUDORZA PRESS400 MCG INH (16:25)
[2017-01-25 16:36] LABS: PT 15.7 SEC (9.4-12.5); PTT 34 SEC (25-37)
[2017-01-25 16:37] LABS: GRANULOCYTE % 85.1 % (42.2-75.2)
--- NOTE | 2017-01-25 16:49 | RADIOLOGY REPORT ---
EXAMINATION: XR PORTABLE CHEST CLINICAL INFORMATION: Cough and shortness of breath COMPARISON: 12/10/[address] from 01/08/2017. TECHNIQUE: Portable frontal view of the chest was obtained. FINDINGS: Cardiac leads overlie the chest. The lungs are well expanded. There is a right basilar airspace opacity. No pleural effusion or pneumothorax. The cardiomediastinal silhouette is unchanged, with a tortuous and calcified aorta. Bilateral hilar prominence. IMPRESSION: Right basilar airspace opacity suspicious for pneumonia. This likely correlates to the appearance on prior PET/CT, likely increased. Hilar prominence may be associated with prominent vasculature.
--- NOTE | 2017-01-25 20:26 | History & Physical ---
MAGEN MONTES,YUNG 01/25/172024: General Information and HPI MD Statement: I have seen and personally examined JAMES NELSON and documented this H&P. The patient is a 71 year old M who presented with a patient stated chief complaint of [dyspnea]. 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 Patient states that he has been feeling less than his baseline for the past week. He states that he is having worsening shortness of breath and dyspnea on exertion, he increase his baseline O2 from 2-3 L with some relief. He stated that he has noted worsening production of phlegm, particularly yesterday he coughed presented him from sleeping. She states that he has been having subjective fevers and this morning and dialysis he was measured with a MAXIMUM TEMPERATURE of 99.9. He called Dr. Belle his concession cashier today to discuss his worsening respiratory status. He was recommended to come to the ED for further evaluation. Patient had previous admissions on December 13, 2016 for acute hypoxic respiratory failure and he was treated for COPD and CHF. In the previous admission September 21 he was found to have sinus tachycardia with heart rate up to 160 and was admitted to ICU for management. Note that in ED patient was found to be in A. fib with RVR, heart rate up to 157. Patient had an appointment his glass decorator Dr. Recio about a week ago where he was informed that he was in atrial fibrillation. Patient states that he has never had known diagnosis of atrial fibrillation prior to his recent appointment with Dr. Recio. Note previous admisison to ICU for sinus tachycardia with heart rate up to 160. Allergies/Medications Allergies: Coded Allergies: venom-honey bee (bee venom (honey bee)) (Severe, ANAPHYLAXIS 01/25/17) Penicillins (Intermediate, RASH 01/25/17) Home Med list Aclidinium [place] (Tudorza Pressair) 400 MCG/ACTUATION AER.POW.BA 1 PUFF INH BID COPD (Reported) Albuterol Sulfate 2.5 MG/3 ML VIAL.NEB 1 Vial INH/ROSALINDA Q4P COPD (Reported) Albuterol Sulfate (Proair Hfa) 8.5 GM HFA.AER.AD 2 PUF INH PRN COPD (Reported ) Aspirin (Lo-Dose Aspirin EC) 81 MG TABLET.DR 1 TAB PO DAILY HEART/BLOOD ( Reported) Atorvastatin Calcium 40 MG TABLET 1 TAB PO DAILY CHOLESTEROL (Reported) Budesonide/Formoterol Fumarate (Symbicort 160-4.5 Mcg Inhaler) 10.2 GM HFA.AER.AD 2 PUF INH BID COPD Calcium Acetate 667 MG TABLET 3 CAP PO WM KIDNEYS (Reported) Ipratropium/Albuterol Sulfate (Combivent Respimat Inhal [place]) 4 GM MIST.INHAL 1 PUFF INH 4 TIMES/DAY COPD (Reported) Metoprolol Tartrate 50 MG TABLET 50 MG PO BID HTN Nephro-Vitamins (Nephro-Angie Tablet) 0.8 MG TABLET 1 TAB PO DAILY SUPPLEMENT (Reported) Oxycodone HCl/Acetaminophen (Oxycodone-Acetaminophen 10-325) 10 MG-325 MG TABLET 0.5 TAB PO PRN PAIN (Reported) Pantoprazole Sodium 40 MG TABLET.DR 1 TAB PO DAILY GI (Reported) Roflumilast (Daliresp) 500 MCG TABLET 1 TAB PO DAILY COPD (Reported) Compliance With Home Meds: GOOD Past History Travel History Traveled to [place] past 21 day No Medical History Neurological: NONE EENT: NONE Cardiovascular: AFIB, CAD, hypertension, stents, severe pulmonary hypertension Respiratory: asthma, COPD, 2L O2 DEPENDANT CPAP EACH NIGHT Gastrointestinal: NONE Hepatic: hepatic congestion, splenomegaly Renal: ESRD on HD, FISTULA ON L UPPER EXT Musculoskeletal: NONE Psychiatric: NONE Endocrine: HX DIABETES Blood Disorders: myelodysplastic syndrome. Cancer(s): NONE RUBBER INSULATOR/Reproductive: NONE History of MRSA: No History of VRE: No History of CDIFF: No Influenza Vaccine: 07/03/16 Surgical History Surgical History: cholecystectomy, AV FISTULA LUE Past Family/Social History Family History Relations & Conditions if any FATHER (CKD on HD, CAD, CO, DM). MOTHER (CKD on HD, CAD, CO, DM). FATHER (CKD on Hemodialysis, CAD, DM). MOTHER (CKD on Hemodialysis, CAD, CO). Psychosocial History Who Do You Live With? spouse Services at Home: Oxygen Primary Language: Bahamian Functional Ability ADLs Independent: eating, toileting. Needs Assist: bathing. Ambulation: independent Review of Systems Review of Systems Constitutional: Reports: fever, malaise. Denies: chills, diaphoresis. EENTM: Reports: no symptoms. Denies: blurred vision, double vision. Cardiovascular: Reports: palpitations. Denies: chest pain, edema, orthopena, peripheral edema, syncope. Respiratory: Reports: cough, short of breath, sputum production. Denies: hemoptysis. GI: Reports: constipation. Denies: bloody stool. Genitourinary: Reports: see HPI. Musculoskeletal: Reports: no symptoms. Skin: Reports: no symptoms. Neurological/Psychological: Reports: no symptoms. Hematologic/Endocrine: Reports: no symptoms. Exam & Diagnostic Data Last 24 Hrs of Vital Signs/I&O Vital Signs Date Time Temp Pulse Resp B/P B/P Pulse O2 O2 Flow FiO2 Mean Ox Delivery Rate 01/25 2154 Nasal 3.0L Cannula 01/25 2035 98.6 60 20 108/60 95 Nasal 4.0L Cannula 01/25 2034 Nasal 4.0L Cannula 01/25 2002 106 125/58 01/25 2001 97.9 106 20 125/58 98 Nasal 4.0L Cannula 01/25 1828 98.2 01/25 1828 98.2 110 20 116/62 97 Nasal 4.0L Cannula 01/25 1725 110 25 114/56 96 Nasal 4.0L Cannula 01/25 1653 128 115/70 01/25 1645 134 22 115/72 97 Room Air Room Air 01/25 1624 110 114/62 01/25 1620 97 Nasal 4.0L Cannula 01/25 1612 110 11462 01/25 1609 122 24 96 Nasal 4.0L Cannula 01/25 1600 100.5 144 24 116/60 89 Nasal 2.0L Cannula Physical Exam General Appearance Alert, Oriented X3, Cooperative, No Acute Distress Skin No Significant Lesion HEENT Atraumatic, PERRLA, EOMI, Mucous Membr. moist/pink Neck Supple, No JVD, no cervical lymphadenopathy Cardiovascular ireegularly irregular. not tachy Lungs Diffusely rhoncherous, particularly in R. lobes. Had some chrackles nad wheezes as well Abdomen tomás tenderness with deep palpation in RUQ. Neurological Normal Speech Extremities NO EDEMA Last 24 Hrs of Labs/Jesus: Laboratory Tests 01/25/17 1855: Lactic Acid Cancelled 01/25/17 1600: Anion Gap 14, Estimated GFR 14 L, BUN/Creatinine Ratio 7.3, Glucose 86, Lactic Acid 1.3, Calcium 8.5, Magnesium 1.7, Total Bilirubin 0.8, AST 23, ALT 39, Alkaline Phosphatase 120, Troponin I 0.06, Lnv-E-Nnayjuzavcf Pept 38374 H, Total Protein 6.7, Albumin 3.6, Globulin 3.1, Albumin/Globulin Ratio 1.2, TSH Pending, Free T4 Pending, PT 15.7 H, INR 1.50 H, APTT 34, CBC w Diff NO MAN DIFF REQ, RBC 3.92 L, MCV 86.2, MCH 26.6 L, RDW 17.5 H, MPV 9.9, Gran % 85.1 H, Lymphocytes % 6.2 L, Monocytes % 8.0, Eosinophils % 0.3, Basophils % 0.4, Absolute Granulocytes 7.0 H, Absolute Lymphocytes 0.5 L, Absolute Monocytes 0.7 H, Absolute Eosinophils 0, Absolute Basophils 0, PUBS MCHC 30.9 L Microbiology 01/25 171 LOWER RESP: Respiratory Culture - RES 01/25 171 LOWER RESP: Gram Stain - RES 01/25 1715 BLOOD: Blood Culture - RECD 01/25 1614 URINE ROUT: Urine Culture - ORD 01/25 1600 BLOOD: Blood Culture - RECD Assessment/Plan Assessment: This is a 71-year-old male past medical history significant for ESRD on Saturday was a Saturday hemodialysis, end-stage COPD, CAD status post RCA stent, distal lymphadenopathy, saccular aneurysmal descending aorta, who comes in for chief complaint of dyspnea on exertion, shortness of breath and increasing sputum production. ED workup shows: Vitals: 100.5, 144, 24, 116/60, 89. INR 1.5. CBC shows: White count 8.2, hemoglobin 10.4, hematocrit 33.8, platelet 207. BEP shows BUN 30, creatinine 1.1. BNP 7 2900. First troponin 0.06. EKG shows A. fib with RVR Chest x-ray IMPRESSION: Right basilar airspace opacity suspicious for pneumonia. This likely correlates to the appearance on prior PET/CT, likely increased. Hilar prominence may be associated with prominent vasculature. PLAN 1. A. fib with RVR: Patient was seen by Dr. Recio last week for routine visit and was found to be in atrial fibrillation, but apparently not in rapid ventricular rate. However, in ED he was found to be his heart rate up to 157. Patient is currently not on any anticoagulation other than baby aspirin. Last time he took Plavix was over 4 years ago. Patient states that he had discussion with Dr. Recio regarding anticoagulation but was not started at that time. Dr. Recio was informed about patient's presence in ED. Recommendation was for rate control and not anticoagulation at this time In ED patient was given 20 mg of diltiazem, 5 mg of IV metoprolol, and his home dose of 50 mg by mouth metoprolol. His heart rate subsequently came down from 150s to 120s and now at 60 bpm. CHADS2 VASc of 4 placing him in the moderate- high risk catergory. * Continue to monitor on telemetry * Cardiology consult with Dr. Recio * Rule out ACS with serial EKG and troponin * Rate control with diltiazem and metoprolol ESRD: Patient is on Saturday, Saturday, Saturday dialysis. Last dialysis this AM. Asians creatinine is at 4.1, which is better than his baseline. * Nephrology consult for dialysis in house Acute hypoxic respiratory failure: Patient has past medical history of severe COPD and CHF. Came into the ED with sats of 80% on 2 L. When increased to 4 L his saturations increased to 92%. He presents with chief complaint of worsening dyspnea and exertion, shortness of breath and cough. Chest x-ray shows right basilar opacity suspicious for pneumonia. Note that patient has had similar presentations in the past with similar chest x-ray findings. Usually he is treated for COPD and CHF not pneumonia. Note the patient had MAXIMUM TEMPERATURE 100.5 in ED. However white count 8.2. His pulmonary exam is significant for rhonchi, wheezing and crackles. He got 1 dose of ceftriaxone and azithromycin in the ED. At this time we will treat patient for COPD exacerbation. If he clinically deteriorates or spikes fever we'll consider extending treatment for community acquired pneumonia. * IV Solu-Medrol * TRC * Azithromycin * Pulm consult * Sputum culture * Continue nasal cannula for sats greater than 92 * Continue CPAP for his LLUVIA Mediastinal lymphadenopathy: None on previous CT patient was noted to have worsening mediastinal lymphadenopathy. He did a PET scan done about 3 weeks ago. PET scan showed evidence of one possibly suspicious lymph node. All others nml. Patient is being followed by Dr. Belle for this issue. * Follow-up with Dr. Belle on the outpatient basis Anemia: Patient is hemoglobin 10.4 and hematocrit 33.8. This seems to be around his baseline. Etiology of his anemia likely secondary to his ESRD. * Continue to monitor * Follow-up with nephrology CHF: Echocardiogram done in September 2016 shows EF of 40-45. Patient has known heart failure. BNP during this admission measured at 72,900; in December 2016, during last admission he had BNP as high as 201,000. Patient had dialysis today that he is back at his baseline weight. Lungs do sound rhonchorous and crackly but he has no lower extremity edema and his weight is at baseline. * Cardiology consult Aneurysm of descending aorta: Chronic and stable * Follow-up outpatient with PCP Full code Chemical DVT prophylaxis ESRD diet As Ranked By This Provider Problem List: 1. Anemia 2. Aortic aneurysm 3. CONGESTIVE HEART FAILURE 4. COPD 5. Chronic kidney disease stage 4 6. Atrial fibrillation Core Measures/Miscellaneous Acute Coronary Syndrome ACS Diagnosis: No Cerebrovascular Accident CVA/TIA Diagnosis: No Congestive Heart Failure CHF Diagnosis: No Venous Thromboembolism VTE Risk Factors: Acute medical illness, Age > 40 No [facility] VTE prophylaxis d/t: No contraindications No VTE Pharm Prophylaxis d/t: No contraindications VTE Diagnosis: No VTE Type: NONE VTE Confirmed by (Test): NONE Severe Sepsis Severe Sepsis Present: No Septic Shock Septic Shock Present: No Miscellaneous Documentation Attending Case Discussed With: JUAN BUTCHER MD Primary Care Physician: CYNDI STEIN MD Patient sees these Specialists Dr. Recio Level of Patient Care: Telemetry Consults Needed: Consulting Specialty: Cardiology DEMETRIS SALAZAR MD,ALANIS 01/25/172111: Resident Review Statement Resident Statement: examined this patient, discussed with sports internship, agreed with sports internship, discussed with family Other Findings: 71-year-old man with past medical history significant for chronic COPD, oxygen dependent 2 L at baseline, septic sleep apnea, coronary artery disease status post right RCA stenting 10 years ago, pulmonary hypertension, descending thoracic artery aneurysm, end-stage renal disease on dialysis Saturday and Saturday came to emergency department with shortness of breath and dyspnea on exertion which has been going on for the last 3-4 days. Patient went to his dialysis today and was told to go to emergency department. Patient also has increased phlegm for the last 4 days along with more shortness of breath and requiring 3 L than 2 L at baseline. Patient went to see Dr. Recio recently and atrial fibrillation was discovered during that visit because patient's heart rate was really high. Option of and Patient was discussed and patient was told that Dr. Recio will discuss this option with nephrology. On examination patient was in mild distress lying on the bed. Lung examination included wheezes, decreased air entry and rales. S1 and S2 audible without any murmurs, left forearm has fistula for dialysis, grossly intact neurologic examination. Significant labs include no leukocytosis, chronic anemia, BUN of 30 and creatinine of 4.1 and patient had dialysis today. Chest x-ray showed right basilar opacity, [place] [address]. EKG showed atrial fibrillation with RVR. Patient was admitted on telemetry so for the management of following problems Atrial fibrillation with RVR Most likely cause ? CHF ( High BNP ) vs ACS (Negative Troponins and No ST changes on EKG) VS vs ? Hyperthyroidism Current [id number] score 4, Stroke risk was 4.8% per year Patient is currently not on any anticoagulation as per discussion with glass decorator. - Admit to Telemetry - Vitals Q shift - Repeat EKG - Adjust Lopressor dose as per HR, Hold if less than 60. - Patient not on any current anticoagulation - Monitor HR and Rhythm - ? Echo ordered to rule out possibility of thrombus, last echo showed EF of 45% in December. - Patient has history of previous heart failure with preserved left ventricular systolic function - Chest CT to rule out possiblity of PE if patient remains hypoxemic -Free T4 and TSH to rule out Hypertthyroidism Acute bronchitis Patient has increased sputum production with change in the color of sputum. Patient also had a temperature spike of 100.5 in emergency department, chest x- ray showed right basilar opacity which is not a significant change from the previous imaging. For now we'll give azithromycin along with total respiratory care. We will also obtain pulmonology consult. Since there is significant wheezing on examination was also given IV steroids. Continue CPAP for obstructive sleep apnea Chronic kidney disease on dialysis Get renal consult to arrange for dialysis in the hospital Patient is on subcutaneous heparin for DVT prophylaxis Patient is on renal dialysis type Patient is on pain pathway Patient is full code YOANDY MONTES, [facility] 01/26/17 0400: Attending MD Review Statement Attending Statement Attending MD Statement: examined this patient, discuss w/resident/PA/RUBBER GOODS CUTTER FINISHER, agreed w/resident/PA/RUBBER GOODS CUTTER FINISHER, discussed with family Attending Assessment/Plan: 71 yo obese M with h/o chronic hypoxic respiratory failure, COPD on 2L O2, LLUVIA on CPAP, CAD s/p stent, chronic systolic heart failure, pulm hypertension, ESRD on dialysis (M/W/F), last admitted for COPDE in December 2016 is here for exertional dyspnea and cough productive of yellow phlegm over past 1 week. He felt slightly better after dialysis today, but soon after he could not breathe and had to increase his O2 to 3-4L. He called Dr. Belle who suggested him to come to ER for evaluation. Patient's dry weight today is 76.4 kgs and he reports about 3L were removed at dialysis. He does not make urine. Of note, patient has a vague mention of previous atrial fibrillation without chronic anticoagulation. He was seen at Dr. Recio's office last week, noted to be in Afib, not in RVR. Today on ER arrival, he was found to be in rapid Afib and required IV cardizem push. Vitals: initially tachycardic to 150's (Afib with RVR) that resolved with IV cardizem and metoprolol push, Tmax 100.5, BP 116/62, sats 89% on 2L --> 96% on 4L. Exam: mild respiratory distress, Chest b/l scattered rhonchi (R>L) with expiratory wheeze. LUE AV fistula site C/D/I. Labs: no leukocytosis, INR 1.50, BUN 30, creat 4.1, lactic acid 1.3, trop neg, proBNP 62674, TSH/free T4 normal. CXR: Right basilar airspace opacity suspicious for pneumonia. It correlates to the appearance on prior CT/PET. Echo (2017): EF 40-45%, elevated RVSP. 1. Afib with RVR (unclear duration or onset of Afib). Tele admit, HR is controlled after IV cardizem push and IV metoprolol. Will resume home dose of metoprolol 50 BID, as patient did not take his cardiac meds this AM. Serial EKG and troponin, no need for repeat echo, obtain Cardio consult. His [id number] score is 4 (HTN, age, CHF, CAD), placing him at 4.8% stroke risk. Need to discuss anticoagulation with Cardio (Dr. Recio) in AM. Rate is well controlled for now, he may need ?cardioversion vs. medications to maintain sinus rhythm. 2. Acute on chronic hypoxic respiratory failure 2/2 COPD exacerbation. His CXR is s/o right basilar opacity that was present on previous CT. He received IV ceftriaxone and azithro in ER for pneumonia. Obtain sputum culture, TRC nebs, IST, IV solumedrol, IV azithro, hold off on ceftriaxone for now unless he spikes a fever. Pulm consult. 3. ESRD on dialysis. M/W/ schedule. Nephro consult. DVT ppx Hep SC. Full code. DVT ppx Hep SC. Full code.
[2017-01-25 20:35] VITALS: BP 108/60
[2017-01-26 00:51] VITALS: BP 114/58
--- NOTE | 2017-01-26 01:18 | Admission Certification ---
Admission Certification Certification Statement - As attending physician, I certify that at the time of - admission, based on clinical presentation, severity of - symptoms, need for further diagnostic testing and - therapeutic interventions, and risk of adverse outcomes - without in-hospital treatment, in my clinical assessment, - this patient requires an acute hospital stay for a minimum - of two nights or longer. I have also considered psychsocial - factors such as support system, advanced age, financial - issues, cognitive issues, and failed out-patient treatments, - past re-admission history, safety of patient, and lack of - compliance as applicable. Specific rationale supporting this admission is: Acute on chronic hypoxic respiratory failure, COPD exacerbation. Afib with RVR.
[2017-01-26 05:12] LABS: ABSOLUTE BASOPHIL COUNT 0 /CUMM (0.0-0.2); ABSOLUTE EOSINOPHIL COUNT 0 /CUMM (0.0-0.7); ABSOLUTE GRANULOCYTE CT 4.4 /CUMM (1.4-6.5); ABSOLUTE LYMPH COUNT 0.4 /CUMM (1.2-3.4); ABSOLUTE MONOCYTE COUNT 0.1 /CUMM (0.10-0.60); BASOPHIL % 0.2 % (0.0-2.0); EOSINOPHIL % 0 % (0-5); GRANULOCYTE % 89.9 % (42.2-75.2); HEMATOCRIT 31.9 % (42-52); MEAN CORPUSCULAR HGB 26.6 PG (27.0-31.0); MEAN CORPUSCULAR VOLUME 85.9 FL (80.0-94.0); MEAN PLATELET VOLUME 10.4 FL (7.4-10.4); PLATELET COUNT 169 /CUMM (130-400); RBC DISTRIBUTION WIDTH 17.5 % (11.5-14.5); RED BLOOD CELL CT 3.71 /CUMM (4.70-6.10)
[2017-01-26 05:21] LABS: PT 14.3 SEC (9.4-12.5)
--- NOTE | 2017-01-26 05:21 | PN- Housestaff ---
Subjective Follow-up For: Atrial fibrillation with RVR Acute on chronic hypoxic respiratory failure ESRD on on dialysis Complaints: Shortness of breath Tele-Events Since Last Visit: Afib HR 75-87 Subjective: Patient slept over night and feels a little better Review of Systems Constitutional: Denies: chills, fever. Cardiovascular: Denies: chest pain, palpitations. Respiratory: Reports: cough, short of breath. Gastrointestinal: Reports: constipation. Genitourinary: Denies: dysuria. Objective Last 24 Hrs of Vital Signs/I&O Vital Signs Date Time Temp Pulse Resp B/P B/P Pulse O2 O2 Flow FiO2 Mean Ox Delivery Rate 01/26 0051 98.3 67 20 114/58 95 Nasal Cannula 01/26 0000 96 CPAP 3.0L 01/25 2334 80 110/70 01/25 2154 Nasal 3.0L Cannula 01/25 2035 98.6 60 20 108/60 95 Nasal 4.0L Cannula 01/25 2034 Nasal 4.0L Cannula 01/25 2002 106 125/58 01/25 2001 97.9 106 20 125/58 98 Nasal 4.0L Cannula 01/25 1828 98.2 01/25 1828 98.2 110 20 116/62 97 Nasal 4.0L Cannula 01/25 1725 110 25 114/56 96 Nasal 4.0L Cannula 01/25 1653 128 115/70 01/25 1645 134 22 115/72 97 Room Air Room Air 01/25 1624 110 114/62 01/25 1620 97 Nasal 4.0L Cannula 01/25 1612 110 114/62 01/25 1609 122 24 96 Nasal 4.0L Cannula 01/25 1600 100.5 144 24 116/60 89 Nasal 2.0L Cannula Intake & Output 01/26 0800 01/26 0000 01/25 1600 Intake Total 250 Output Total Balance 250 Intake, IV 10 Intake, Oral 240 Patient 168 lb Weight Weight Reported by Patient Measurement Method Physical Exam General Appearance: Alert, Oriented X3, Cooperative, Mild Distress HEENT: Atraumatic Cardiovascular: Normal S1, Normal S2, Irregularly irregular Lungs: wheezes and ronchrous bilaterally Abdomen: Normal Bowel Sounds, Soft, No Tenderness Neurological: Normal Speech, Normal Tone Extremities: No Cyanosis, Normal Pulses Vascular: Normal Pulses Current Medications: Current Medications Sig/Zoe Start time Last Medication Dose Route Stop Time Status Admin Acetaminophen 650 MG Q6 PRN 01/25 2115 AC PO Acetaminophen 0 .STK-MED ONE 01/25 1706 DC PO Acetaminophen 325 MG ONCE ONE 01/25 1700 DC 01/25 PO 01/25 1701 1719 Albuterol Sulfate 3 ML EVERY 4 HRS/AWAKE 01/26 0800 AC INH Albuterol Sulfate 3 ML Q4P PRN 01/25 2130 AC INH Albuterol Sulfate 2 PUF DAILY 01/25 2121 AC 01/25 INH 2335 Albuterol Sulfate 3 ML ONCE ONE 01/25 1600 DC 01/25 INH 01/25 1601 1643 Aspirin Buffered 81 MG DAILY 01/25 2300 AC 01/25 PO 2334 Atorvastatin Calcium 40 MG 1700 01/26 1700 AC PO Azithromycin 500 MG DAILY 01/26 1000 AC Sodium Chloride 250 ML IV Azithromycin 500 MG ONCE ONE 01/25 1700 DC 01/25 Sodium Chloride 250 ML IV 01/25 1759 1725 Budesonide/ 2 PUF BID 01/25 2200 AC 01/25 Formoterol Fumarate INH 2335 Calcium Acetate 667 MG WM 01/26 0800 AC PO Ceftriaxone Sodium 0 .STK-MED ONE 01/25 1707 DC .ROUTE Ceftriaxone Sodium 1,000 MG ONCE ONE 01/25 1700 DC 01/25 IV 01/25 1701 1719 Diltiazem HCl 0 .STK-MED ONE 01/25 1602 DC .ROUTE Diltiazem HCl 20 MG ONCE ONE 01/25 1600 DC 01/25 IV PUSH 01/25 1601 1624 Heparin Sodium 5,000 UNIT Q8 01/26 0100 AC 01/26 (Porcine) SC 0119 Ipratropium Declo 2.5 ML EVERY 4 HRS/AWAKE 01/26 0800 AC INH Ipratropium Declo 2.5 ML ONCE ONE 01/25 2345 DC INH 01/25 2346 Methylprednisolone 40 MG Q8 01/25 2300 AC 01/25 IV 2335 Methylprednisolone 0 .STK-MED ONE 01/25 1613 DC .ROUTE Methylprednisolone 125 MG ONCE ONE 01/25 1600 DC 01/25 IV 01/25 1601 1624 Metoprolol Tartrate 50 MG BID 01/25 2300 AC 01/25 PO 2334 Metoprolol Tartrate 0 .STK-MED ONE 01/25 2004 DC PO Metoprolol Tartrate 50 MG ONCE ONE 05/1999 DC 01/25 PO 01/25 Metoprolol Tartrate 0 .STK-MED ONE 01/25 1640 DC IV Metoprolol Tartrate 5 MG ONCE ONE 01/25 1630 DC 01/25 IV 01/25 1631 1653 Morphine Sulfate 0.5 MG Q8P PRN 01/25 2130 AC IV Multivitamins 1 TAB DAILY 01/25 2300 AC 01/25 PO 2334 Omeprazole 40 MG DAILY AC 01/26 0700 AC PO Oxycodone HCl 5 MG Q6 PRN 01/25 2115 AC PO Oxycodone/ 0 .STK-MED ONE 01/25 1620 DC Acetaminophen PO Oxycodone/ 1 TAB ONCE ONE 01/25 1615 DC 01/25 Acetaminophen PO 01/25 161 1624 Polyethylene Glycol 17 GM AT BEDTIME 01/25 2200 AC 01/25 PO 2335 Roflumilast 500 MCG DAILY 01/26 1000 AC PO Senna/Docusate Sodium 1 TAB AT BEDTIME 01/25 2200 AC 01/25 PO 2334 Sodium Chloride 250 ML BOLUS ONE 01/25 1700 DC 01/25 IV 01/25 1759 1719 Tiotropium Declo 1 PUF DAILY 01/26 1000 AC INH Last 24 Hrs of Lab/Jesus Results Last 24 Hrs of Labs/Mics: Laboratory Tests 01/26/17 0445: Troponin I 0.06, PT 14.3 H, INR 1.37 H, CBC w Diff NO MAN DIFF REQ, RBC 3.71 L, MCV 85.9, MCH 26.6 L, RDW 17.5 H, MPV 10.4, Gran % 89.9 H, Lymphocytes % 8.7 L, Monocytes % 1.2 L, Eosinophils % 0, Basophils % 0.2, Absolute Granulocytes 4.4, Absolute Lymphocytes 0.4 L, Absolute Monocytes 0.1 L, Absolute Eosinophils 0, Absolute Basophils 0, PUBS MCHC 31.0 L 01/25/17 2210: Troponin I 0.08 01/25/17 1855: Lactic Acid Cancelled 01/25/17 1600: Anion Gap 14, Estimated GFR 14 L, BUN/Creatinine Ratio 7.3, Glucose 86, Lactic Acid 1.3, Calcium 8.5, Magnesium 1.7, Total Bilirubin 0.8, AST 23, ALT 39, Alkaline Phosphatase 120, Troponin I 0.06, [id number] Pept 04261 H, Total Protein 6.7, Albumin 3.6, Globulin 3.1, Albumin/Globulin Ratio 1.2, TSH 1.120, Free T4 1.51, PT 15.7 H, INR 1.50 H, APTT 34, CBC w Diff NO MAN DIFF REQ, RBC 3.92 L, MCV 86.2, MCH 26.6 L, RDW 17.5 H, MPV 9.9, Gran % 85.1 H, Lymphocytes % 6.2 L, Monocytes % 8.0, Eosinophils % 0.3, Basophils % 0.4, Absolute Granulocytes 7.0 H, Absolute Lymphocytes 0.5 L, Absolute Monocytes 0.7 H, Absolute Eosinophils 0, Absolute Basophils 0, PUBS MCHC 30.9 L Microbiology 01/26 0600 URINE ROUT: Urine Culture - COLB 01/25 1715 LOWER RESP: Respiratory Culture - RES 01/25 1715 LOWER RESP: Gram Stain - RES 01/25 1715 BLOOD: Blood Culture - RECD 01/25 1600 BLOOD: Blood Culture - RECD Lines/Diet/Fluids Fluids/Infusions: none Lines: peripheral lines Restraints: none Assessment/Plan Assessment: 71-year-old man with past medical history significant for chronic COPD, oxygen dependent 2 L at baseline, septic sleep apnea, coronary artery disease status post right RCA stenting 10 years ago, pulmonary hypertension, descending thoracic artery aneurysm, end-stage renal disease on dialysis Saturday and Saturday came to emergency department with shortness of breath and dyspnea on exertion which has been going on for the last 3-4 days. Patient went to his dialysis today and was told to go to emergency department. Patient also has increased phlegm for the last 4 days along with more shortness of breath and requiring 3 L than 2 L at baseline. Atrial fibrillation with RVR with h/o CHF Most likely cause ? CHF ( High BNP ) vs ACS (Negative Troponins and No ST changes on EKG) VS vs ? Hyperthyroidism Current [id number] score 4, Stroke risk was 4.8% per year Patient is currently not on any anticoagulation as per discussion with remittance clerk. Got IV cardizem push and IV metoprolol Continue Lopressor dose as per HR, Hold if less than 60. Patient not on any current anticoagulation, please confirm with Cardiology about the AC ? Echo ordered to rule out possibility of thrombus, last echo showed EF of 45% in December. Patient has history of previous heart failure with preserved left ventricular systolic function Acute on chronic hypoxic respiratory failure 2/2 COPD exacerbation Patient has increased sputum production with change in the color of sputum. Patient remained afebrile overnight Chest x-ray showed right basilar opacity which is not a significant change from the previous imaging. Continue azithromycin along with total respiratory care. Obtain pulmonology consult Continue IV steroids Continue CPAP for obstructive sleep apnea Chronic kidney disease on dialysis Renal consult to arrange for dialysis in the hospital Patient is on subcutaneous heparin for DVT prophylaxis Patient is on renal dialysis type Patient is on pain pathway Patient is full code Problem List: 1. ESRD (end stage renal disease) 2. COPD (chronic obstructive pulmonary disease) 3. Rapid atrial fibrillation Pain Ratin Pain Location: None Pain Goal: Pain 4 or less Pain Plan: Pain Pathway Tomorrow's Labs & Rationales: BEP DVT/Prophylaxis: pharmacological Consulting Request: Consulting Specialty: Cardiology
[2017-01-26 05:41] LABS: WHITE BLOOD CELL COUNT 4.9 /CUMM (4.8-10.8)
[2017-01-26 08:32] VITALS: BP 160/78
--- NOTE | 2017-01-26 13:19 | Cons- Nephrology ---
General Information and HPI Consulting Request Date of Consult: 01/26/17 Requested By: JUAN BUTCHER MD Reason for Consult: evaluation and management of ESRD Source of Information: patient Exam Limitations: no limitations History of Present Illness: The patient is a 71-year-old male with a history of obesity, COPD, CHF with EF of 40-45%, end-stage renal disease on hemodialysis since 2012 secondary to diabetes and hypertension, who dialyzes on a Saturday schedule at the [facility], operated by [facility]. He had his routine dialysis yesterday and had 3.5 L of fluid removed this weight after dialysis was 76.4 kg which is slightly below his estimated dry weight of 77 kg. In the evening the patient developed shortness of breath and presented to the hospital where he was found to be in atrial fibrillation with rapid ventricular response. He does have history of paroxysmal A. fib in the past. With Cardizem and metoprolol his heart rate improved. He was also noted to be febrile on admission with a temperature of 100.5F. He's also had a cough productive of sputum. Chest revealed a possible right lower lobe infiltrate and he was started on IV antibiotics. Allergies/Medications Allergies: Coded Allergies: venom-honey bee (bee venom (honey bee)) (Severe, ANAPHYLAXIS 01/25/17) Penicillins (Intermediate, RASH 01/25/17) Home Med List: Aclidinium Green (Tudorza Pressair) 400 MCG/ACTUATION AER.POW.BA 1 PUFF INH BID COPD (Reported) Albuterol Sulfate 2.5 MG/3 ML VIAL.NEB 1 Vial INH/ROSALINDA Q4P COPD (Reported) Albuterol Sulfate (Proair Hfa) 8.5 GM HFA.AER.AD 2 PUF INH PRN COPD (Reported ) Aspirin (Lo-Dose Aspirin EC) 81 MG TABLET.DR 1 TAB PO DAILY HEART/BLOOD ( Reported) Atorvastatin Calcium 40 MG TABLET 1 TAB PO DAILY CHOLESTEROL (Reported) Budesonide/Formoterol Fumarate (Symbicort 160-4.5 Mcg Inhaler) 10.2 GM HFA.AER.AD 2 PUF INH BID COPD Calcium Acetate 667 MG TABLET 3 CAP PO WM KIDNEYS (Reported) Ipratropium/Albuterol Sulfate (Combivent Respimat Inhal [place]) 4 GM MIST.INHAL 1 PUFF INH 4 TIMES/DAY COPD (Reported) Metoprolol Tartrate 50 MG TABLET 50 MG PO BID HTN Nephro-Vitamins (Nephro-Angie Tablet) 0.8 MG TABLET 1 TAB PO DAILY SUPPLEMENT (Reported) Oxycodone HCl/Acetaminophen (Oxycodone-Acetaminophen 10-325) 10 MG-325 MG TABLET 0.5 TAB PO PRN PAIN (Reported) Pantoprazole Sodium 40 MG TABLET.DR 1 TAB PO DAILY GI (Reported) Roflumilast (Daliresp) 500 MCG TABLET 1 TAB PO DAILY COPD (Reported) Current Medications: Current Medications Sig/Zoe Start time Last Medication Dose Route Stop Time Status Admin Acetaminophen 650 MG Q6 PRN 01/25 2115 AC PO Acetaminophen 0 .STK-MED ONE 01/25 1706 DC PO Acetaminophen 325 MG ONCE ONE 01/25 1700 DC 01/25 PO 01/25 1701 1719 Albuterol Sulfate 3 ML EVERY 4 HRS/AWAKE 01/26 0800 AC 01/26 INH 1239 Albuterol Sulfate 3 ML Q4P PRN 01/25 2130 AC INH Albuterol Sulfate 2 PUF DAILY 01/25 2121 AC 01/25 INH 2335 Albuterol Sulfate 3 ML ONCE ONE 01/25 1600 DC 01/25 INH 01/25 1601 1643 Aspirin Buffered 81 MG DAILY 01/25 2300 AC 01/26 PO 0915 Atorvastatin Calcium 40 MG 1700 01/26 1700 AC PO Azithromycin 500 MG 1700 01/26 1700 AC Sodium Chloride 250 ML IV Azithromycin 500 MG DAILY 01/26 1000 DC Sodium Chloride 250 ML IV Azithromycin 500 MG ONCE ONE 01/25 1700 DC 01/25 Sodium Chloride 250 ML IV 01/25 1759 1725 Budesonide/ 2 PUF BID 01/25 2200 AC 01/26 Formoterol Fumarate INH 0916 Calcium Acetate 2,001 MG WM 01/26 1700 UNVr PO Calcium Acetate 667 MG WM 01/26 0800 DC 01/26 PO 1231 Ceftazidime 1,000 MG DAILY 01/26 1125 AC 01/26 IV 1232 Ceftriaxone Sodium 0 .STK-MED ONE 01/25 1707 DC .ROUTE Ceftriaxone Sodium 1,000 MG ONCE ONE 01/25 1700 DC 01/25 IV 01/25 1701 1719 Diltiazem HCl 0 .STK-MED ONE 01/25 1602 DC .ROUTE Diltiazem HCl 20 MG ONCE ONE 01/25 1600 DC 01/25 IV PUSH 01/25 1601 1624 Heparin Sodium 5,000 UNIT Q8 01/26 0100 AC 01/26 (Porcine) SC 0601 Ipratropium Green 2.5 ML EVERY 4 HRS/AWAKE 01/26 0800 AC 01/26 INH 1239 Ipratropium Green 2.5 ML ONCE ONE 01/25 2345 DC INH 01/25 2346 Methylprednisolone 40 MG Q8 01/25 2300 AC 01/26 IV 0601 Methylprednisolone 0 .STK-MED ONE 01/25 1613 DC .ROUTE Methylprednisolone 125 MG ONCE ONE 01/25 1600 DC 01/25 IV 01/25 1601 1624 Metoprolol Tartrate 50 MG BID 01/25 2300 AC 01/26 PO 0831 Metoprolol Tartrate 0 .STK-MED ONE 01/25 2004 DC PO Metoprolol Tartrate 50 MG ONCE ONE 01/26 2000 DC 01/25 PO 01/25 Metoprolol Tartrate 0 .STK-MED ONE 01/25 1640 DC IV Metoprolol Tartrate 5 MG ONCE ONE 01/25 1630 DC 01/25 IV 01/25 1631 1653 Morphine Sulfate 0.5 MG Q8P PRN 01/25 2130 AC IV Multivitamins 1 TAB DAILY 01/25 2300 AC 01/26 PO 0915 Omeprazole 40 MG DAILY AC 01/26 0700 AC 01/26 PO 0601 Oxycodone HCl 5 MG Q6 PRN 01/25 2115 AC PO Oxycodone/ 0 .STK-MED ONE 01/25 1620 DC Acetaminophen PO Oxycodone/ 1 TAB ONCE ONE 01/25 1615 DC 01/25 Acetaminophen PO 01/25 1616 1624 Polyethylene Glycol 17 GM AT BEDTIME 01/250 AC 01/25 PO 2335 Roflumilast 500 MCG DAILY 01/26 1000 AC 01/26 PO 0916 Senna/Docusate Sodium 1 TAB AT BEDTIME 01/25 2200 AC 01/25 PO 2334 Sodium Chloride 250 ML BOLUS ONE 01/25 1700 DC 01/25 IV 01/25 1759 1719 Tiotropium Green 1 PUF DAILY 01/26 1000 AC 01/26 INH 0916 Review of Systems Review of Systems: Gen: +fever/chills, no nightsweats, +wt loss Skin: neg rash, pruritus Eye: neg visual changes, diplopia ENT: neg hearing changes, rhinitus CV: neg CP, +SOB, neg orthopnea Pulm: +cough, +white sputum GI: neg nausea, vomiting, diarrhea, abdominal pain, hematemesis, BRBPR : neg dysuria, frequency, urgency, hematuria, foamy urine, nocturia Musculoskeletal: neg myalgias, arthralgias Neuro: neg weakness, numbness Psych: neg depression, mental status changes Heme: neg bruising, easy bleeding, clots Past History Travel History Traveled to [place] past 21 day No Medical History Blood Transfusion Hx: No Neurological: NONE EENT: NONE Cardiovascular: AFIB, CAD, hypertension, stents, severe pulmonary hypertension Respiratory: asthma, COPD, 2L O2 DEPENDANT CPAP EACH NIGHT Gastrointestinal: NONE Hepatic: hepatic congestion, splenomegaly Renal: ESRD on HD, FISTULA ON L UPPER EXT Musculoskeletal: NONE Psychiatric: NONE Endocrine: DIABETES? Blood Disorders: myelodysplastic syndrome. Cancer(s): NONE FLEET MANAGER/Reproductive: NONE Surgical History Surgical History: cholecystectomy, AV FISTULA LUE Family History Relations & Conditions If Any: FATHER (CKD on HD, CAD, NE, DM). MOTHER (CKD on HD, CAD, NE, DM). FATHER (CKD on Hemodialysis, CAD, DM). MOTHER (CKD on Hemodialysis, CAD, NE). Psychosocial History Where Do You Live? Home Who Do You Live With? spouse Services at Home: Oxygen Primary Language: French Smoking Status: Never Smoked Functional Ability ADLs Independent: eating, toileting. Needs Assist: bathing. Ambulation: independent Exam & Diagnostic Data Vital Signs and I&O Vital Signs Date Time Temp Pulse Resp B/P B/P Pulse O2 O2 Flow FiO2 Mean Ox Delivery Rate 01/26 0832 114 160/78 01/26 0831 107 160/78 01/26 0800 94 Nasal 3.0L Cannula 01/26 0800 97.2 22 94 Nasal 3.0L Cannula 01/26 0051 98.3 67 20 114/58 95 Nasal Cannula 01/26 0000 96 CPAP 3.0L 01/25 2334 80 110/70 01/25 2154 Nasal 3.0L Cannula 01/25 2035 98.6 60 20 108/60 95 Nasal 4.0L Cannula 01/25 2034 Nasal 4.0L Cannula 01/25 2002 106 125/58 01/25 2001 97.9 106 20 125/58 98 Nasal 4.0L Cannula 01/25 1828 98.2 01/26 1828 98.2 110 20 116/62 97 Nasal 4.0L Cannula 01/25 1725 110 25 114/56 96 Nasal 4.0L Cannula 01/25 1653 128 115/70 01/25 1645 134 22 115/72 97 Room Air Room Air 01/25 1624 110 114/62 01/25 1620 97 Nasal 4.0L Cannula 01/25 1612 110 114/62 01/25 1609 122 24 96 Nasal 4.0L Cannula 01/25 1600 100.5 144 24 116/60 89 Nasal 2.0L Cannula Intake & Output 01/26 0400 01/25 0400 01/24 0400 Intake Total 200 250 Output Total Balance 200 250 Intake, IV 10 Intake, Oral 200 240 Patient 168 lb Weight Weight Reported by Patient Measurement Method Physical Exam: General: NAD, A+O x3. HEENT: NC/AT. No icterus. Moist mucosa Neck: negative for EDITH, JVD CV: RRR, no m/r/g Pulm: CTAB, no rales Abd: soft, obese NT/ND, negative renal bruits Lower Ext: neg edema or chronic venous changes Upper Ext: LUE AVF +thrill/bruit Back: negative for CVA tenderness Neuro: neg tremor, asterixis Skin: no rash, jaundice : no rebollar catheter Results Pertinent Lab Results: Laboratory Tests 01/26 01/25 01/25 4345 [id number] 4216 Chemistry Lactic Acid Cancelled Troponin I (<0.11 ng/ml) 0.06 0.08 Coagulation PT (9.4 - 12.5 SEC) 14.3 H INR (0.90 - 1.17) 1.37 H Hematology CBC w Diff NO MAN DIFF REQ WBC (4.8 - 10.8 /CUMM) 4.9 RBC (4.70 - 6.10 /CUMM) 3.71 L Hgb (14.0 - 18.0 G/DL) 9.9 L Hct (42 - 52 %) 31.9 L MCV (80.0 - 94.0 FL) 85.9 MCH (27.0 - 31.0 PG) 26.6 L RDW (11.5 - 14.5 %) 17.5 H Plt Count (130 - 400 /CUMM) 169 MPV (7.4 - 10.4 FL) 10.4 Gran % (42.2 - 75.2 %) 89.9 H Lymphocytes % (20.5 - 51.1 %) 8.7 L Monocytes % (1.7 - 9.3 %) 1.2 L Eosinophils % (0 - 5 %) 0 Basophils % (0.0 - 2.0 %) 0.2 Absolute Granulocytes (1.4 - 6.5 /CUMM) 4.4 Absolute Lymphocytes (1.2 - 3.4 /CUMM) 0.4 L Absolute Monocytes (0.10 - 0.60 /CUMM) 0.1 L Absolute Eosinophils (0.0 - 0.7 /CUMM) 0 Absolute Basophils (0.0 - 0.2 /CUMM) 0 PUBS MCHC (33.0 - 37.0 G/DL) 31.0 L 05/26 1600 Chemistry Sodium (137 - 145 mmol/L) 135 L Potassium (3.5 - 5.1 mmol/L) 4.3 Chloride (98 - 107 mmol/L) 93 L Carbon Dioxide (22 - 30 mmol/L) 28 Anion Gap (5 - 16) 14 BUN (9 - 20 mg/dL) 30 H Creatinine (0.7 - 1.2 mg/dL) 4.1 H Estimated GFR (>60 ml/min) 14 L BUN/Creatinine Ratio (7 - 25 %) 7.3 Glucose (65 - 99 mg/dL) 86 Lactic Acid (0.7 - 2.1 mmol/L) 1.3 Calcium (8.4 - 10.2 mg/dL) 8.5 Magnesium (1.6 - 2.3 mg/dL) 1.7 Total Bilirubin (0.2 - 1.3 mg/dL) 0.8 AST (17 - 59 U/L) 23 ALT (21 - 72 U/L) 39 Alkaline Phosphatase (< 127 U/L) 120 Troponin I (<0.11 ng/ml) 0.06 [id number] Pept (<125 pg/mL) 74415 H Total Protein (6.3 - 8.2 g/dL) 6.7 Albumin (3.5 - 5.0 g/dL) 3.6 Globulin (1.9 - 4.2 gm/dL) 3.1 Albumin/Globulin Ratio (1.1 - 2.2 %) 1.2 TSH (0.270 - 4.200 uIU/mL) 1.120 Free T4 (0.78 - 2.44 ng/dL) 1.51 Coagulation PT (9.4 - 12.5 SEC) 15.7 H INR (0.90 - 1.17) 1.50 H APTT (25 - 37 SEC) 34 Hematology CBC w Diff NO MAN DIFF REQ WBC (4.8 - 10.8 /CUMM) 8.2 RBC (4.70 - 6.10 /CUMM) 3.92 L Hgb (14.0 - 18.0 G/DL) 10.4 L Hct (42 - 52 %) 33.8 L MCV (80.0 - 94.0 FL) 86.2 MCH (27.0 - 31.0 PG) 26.6 L RDW (11.5 - 14.5 %) 17.5 H Plt Count (130 - 400 /CUMM) 207 MPV (7.4 - 10.4 FL) 9.9 Gran % (42.2 - 75.2 %) 85.1 H Lymphocytes % (20.5 - 51.1 %) 6.2 L Monocytes % (1.7 - 9.3 %) 8.0 Eosinophils % (0 - 5 %) 0.3 Basophils % (0.0 - 2.0 %) 0.4 Absolute Granulocytes (1.4 - 6.5 /CUMM) 7.0 H Absolute Lymphocytes (1.2 - 3.4 /CUMM) 0.5 L Absolute Monocytes (0.10 - 0.60 /CUMM) 0.7 H Absolute Eosinophils (0.0 - 0.7 /CUMM) 0 Absolute Basophils (0.0 - 0.2 /CUMM) 0 PUBS MCHC (33.0 - 37.0 G/DL) 30.9 L Assessment/Plan Assessment/Recommendations Assessment: End-stage renal disease: From a volume standpoint the patient appears fairly euvolemic. I will schedule his next dialysis for Saturday morning while in the hospital. Please order a 1500 mL per day fluid restriction while in the hospital. Hemoglobin is 9.9 and will increase his Epogen dose to target a hemoglobin level above 10 (10-12). Shortness of breath: I suspect multifactorial and due to COPD, healthcare associated pneumonia, afib with rapid ventricular response, however at this time the patient appears euvolemic without overt congestive heart failure. Recommendations: Epogen 11,000 units IV 3 times a week with ordered with dialysis Next dialysis Saturday morning in the hospital Agree with treatment of COPD and IV antibiotics for suspected pneumonia Follow-up blood cultures There is no clear data that supports the use of warfarin for atrial fibrillation and end-stage renal disease, as well as risk of bleeding male with a potential for benefit in stroke prevention less patients have a history of prior TIA or stroke, a prosthetic heart valve or rheumatic heart disease Thank you for the consult Discussed with medicine and cardiology teams Christoph Damon MD
--- NOTE | 2017-01-26 13:35 | Cons- Pulmonary ---
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 Patient states that he has been feeling less than his baseline for the past week. He states that he is having worsening shortness of breath and dyspnea on exertion, he increase his baseline O2 from 2-3 L with some relief. He stated that he has noted worsening production of phlegm, particularly yesterday he coughed presented him from sleeping. She states that he has been having subjective fevers and this morning and dialysis he was measured with a MAXIMUM TEMPERATURE of 99.9. He called Dr. Belle his top precipitator operator helper today to discuss his worsening respiratory status. He was recommended to come to the ED for further evaluation. Patient had previous admissions on December 13, 2016 for acute hypoxic respiratory failure and he was treated for COPD and CHF. In the previous admission September 21 he was found to have sinus tachycardia with heart rate up to 160 and was admitted to ICU for management. Note that in ED patient was found to be in A. fib with RVR, heart rate up to 157. Patient had an appointment his soda column operator Dr. Recio about a week ago where he was informed that he was in atrial fibrillation. Patient states that he has never had known diagnosis of atrial fibrillation prior to his recent appointment with Dr. Recio. Note previous admisison to ICU for sinus tachycardia with heart rate up to 160. Review of Systems Constitutional: Reports: fever, malaise. Denies: chills, diaphoresis. EENTM: Reports: no symptoms. Denies: blurred vision, double vision. Cardiovascular: Reports: palpitations. Denies: chest pain, edema, orthopena, peripheral edema, syncope. Respiratory: Reports: cough, short of breath, sputum production. Denies: hemoptysis. GI: Reports: constipation. Denies: bloody stool. Genitourinary: Reports: see HPI. Musculoskeletal: Reports: no symptoms. Skin: Reports: no symptoms. Neurological/Psychological: Reports: no symptoms. Hematologic/Endocrine: Reports: no symptoms. Allergies/Medications Allergies: Coded Allergies: venom-honey bee (bee venom (honey bee)) (Severe, ANAPHYLAXIS 01/25/17) Penicillins (Intermediate, RASH 01/25/17) Home Med List: Aclidinium [place] (Tudorza Pressair) 400 MCG/ACTUATION AER.POW.BA 1 PUFF INH BID COPD (Reported) Albuterol Sulfate 2.5 MG/3 ML VIAL.NEB 1 Vial INH/ROSALINDA Q4P COPD (Reported) Albuterol Sulfate (Proair Hfa) 8.5 GM HFA.AER.AD 2 PUF INH PRN COPD (Reported ) Aspirin (Lo-Dose Aspirin EC) 81 MG TABLET.DR 1 TAB PO DAILY HEART/BLOOD ( Reported) Atorvastatin Calcium 40 MG TABLET 1 TAB PO DAILY CHOLESTEROL (Reported) Budesonide/Formoterol Fumarate (Symbicort 160-4.5 Mcg Inhaler) 10.2 GM HFA.AER.AD 2 PUF INH BID COPD Calcium Acetate 667 MG TABLET 3 CAP PO WM KIDNEYS (Reported) Ipratropium/Albuterol Sulfate (Combivent Respimat Inhal [place]) 4 GM MIST.INHAL 1 PUFF INH 4 TIMES/DAY COPD (Reported) Metoprolol Tartrate 50 MG TABLET 50 MG PO BID HTN Nephro-Vitamins (Nephro-Angie Tablet) 0.8 MG TABLET 1 TAB PO DAILY SUPPLEMENT (Reported) Oxycodone HCl/Acetaminophen (Oxycodone-Acetaminophen 10-325) 10 MG-325 MG TABLET 0.5 TAB PO PRN PAIN (Reported) Pantoprazole Sodium 40 MG TABLET.DR 1 TAB PO DAILY GI (Reported) Roflumilast (Daliresp) 500 MCG TABLET 1 TAB PO DAILY COPD (Reported) Review of Systems Review of Systems Constitutional: Reports: see HPI. Past History Travel History Traveled to [place] past 21 day No Medical History Blood Transfusion Hx: No Neurological: NONE EENT: NONE Cardiovascular: AFIB, CAD, hypertension, stents, severe pulmonary hypertension Respiratory: asthma, COPD, 2L O2 DEPENDANT CPAP EACH NIGHT Gastrointestinal: NONE Hepatic: hepatic congestion, splenomegaly Renal: ESRD on HD, FISTULA ON L UPPER EXT Musculoskeletal: NONE Psychiatric: NONE Endocrine: DIABETES? Blood Disorders: myelodysplastic syndrome. Cancer(s): NONE DECORATOR STORE/Reproductive: NONE Surgical History Surgical History: cholecystectomy, AV FISTULA LUE Family History Relations & Conditions If Any: FATHER (CKD on HD, CAD, HI, DM). MOTHER (CKD on HD, CAD, HI, DM). FATHER (CKD on Hemodialysis, CAD, DM). MOTHER (CKD on Hemodialysis, CAD, HI). Psychosocial History Where Do You Live? Home Who Do You Live With? spouse Services at Home: Oxygen Primary Language: Arabic Smoking Status: Never Smoked Functional Ability ADLs Independent: eating, toileting. Needs Assist: bathing. Ambulation: independent Exam & Diagnostic Data Last 24 Hrs of Vital Signs/I&O Vital Signs Date Time Temp Pulse Resp B/P B/P Pulse O2 O2 Flow FiO2 Mean Ox Delivery Rate 01/26 0832 114 160/78 01/26 0831 107 160/78 01/26 0800 94 Nasal 3.0L Cannula 01/26 0800 97.2 22 94 Nasal 3.0L Cannula 01/26 0051 98.3 67 20 114/58 95 Nasal Cannula 01/26 0000 96 CPAP 3.0L 01/25 2334 80 110/70 01/25 2154 Nasal 3.0L Cannula 01/255 98.6 60 20 108/60 95 Nasal 4.0L Cannula 01/25 2034 Nasal 4.0L Cannula 01/25 2002 106 125/58 01/25 2001 97.9 106 20 125/58 98 Nasal 4.0L Cannula 01/25 1828 98.2 01/25 1828 98.2 110 20 116/62 97 Nasal 4.0L Cannula 01/25 1725 110 25 114/56 96 Nasal 4.0L Cannula 01/25 1653 128 115/70 01/25 1645 134 22 115/72 97 Room Air Room Air 01/25 1624 110 114/62 01/25 1620 97 Nasal 4.0L Cannula 01/25 1612 110 114/62 01/25 1609 122 24 96 Nasal 4.0L Cannula 01/25 1600 100.5 144 24 116/60 89 Nasal 2.0L Cannula Intake & Output 01/26 1600 01/26 0800 01/26 0000 Intake Total 200 250 Output Total Balance 200 250 Intake, IV 10 Intake, Oral 200 240 Patient 168 lb Weight Weight Reported by Patient Measurement Method Last 48 Hrs of Labs/Jesus: Laboratory Tests 01/26/17 0445: Troponin I 0.06, PT 14.3 H, INR 1.37 H, CBC w Diff NO MAN DIFF REQ, RBC 3.71 L, MCV 85.9, MCH 26.6 L, RDW 17.5 H, MPV 10.4, Gran % 89.9 H, Lymphocytes % 8.7 L, Monocytes % 1.2 L, Eosinophils % 0, Basophils % 0.2, Absolute Granulocytes 4.4, Absolute Lymphocytes 0.4 L, Absolute Monocytes 0.1 L, Absolute Eosinophils 0, Absolute Basophils 0, PUBS MCHC 31.0 L 01/25/17 2210: Troponin I 0.08 01/25/17 1855: Lactic Acid Cancelled 01/25/17 1600: Anion Gap 14, Estimated GFR 14 L, BUN/Creatinine Ratio 7.3, Glucose 86, Lactic Acid 1.3, Calcium 8.5, Magnesium 1.7, Total Bilirubin 0.8, AST 23, ALT 39, Alkaline Phosphatase 120, Troponin I 0.06, Cjl-X-Vtnscjtsnuh Pept 99215 H, Total Protein 6.7, Albumin 3.6, Globulin 3.1, Albumin/Globulin Ratio 1.2, TSH 1.120, Free T4 1.51, PT 15.7 H, INR 1.50 H, APTT 34, CBC w Diff NO MAN DIFF REQ, RBC 3.92 L, MCV 86.2, MCH 26.6 L, RDW 17.5 H, MPV 9.9, Gran % 85.1 H, Lymphocytes % 6.2 L, Monocytes % 8.0, Eosinophils % 0.3, Basophils % 0.4, Absolute Granulocytes 7.0 H, Absolute Lymphocytes 0.5 L, Absolute Monocytes 0.7 H, Absolute Eosinophils 0, Absolute Basophils 0, PUBS MCHC 30.9 L Assessment/Plan Impression/Plan: Physical Exam General Appearance Alert, Oriented X3, Cooperative, No Acute Distress Skin No Significant Lesion HEENT Atraumatic, PERRLA, EOMI, Mucous Membr. moist/pink Neck Supple, No JVD, no cervical lymphadenopathy Cardiovascular ireegularly irregular. not tachy Lungs Diffusely rhoncherous, particularly in R. lobes. Had some chrackles nad wheezes as well Abdomen tomás tenderness with deep palpation in RUQ. 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, recurrent exacerbation on prednisone, Bronchiectasis due to recurrent infections, dietary noncompliance, ESRD, mild bilateral bronchiectasis, morbid obesity with obstructive sleep apnea , hypertension, previous hyperkalemia, cor pulmonale, on CPAP at home, previous hepatic disease with splenomegaly, moderate to severe pulmonary hypertension, myelodysplastic process, now comes in with Fever whitish sputum and fatigue with rapid afib with prob recurrent pseudomonas infection with exacerbation of broncheictasis infection Recent PET scan with significant abnormality. with activity in the colon with anemia needs endoscopy Mediastinal lymphadenopathy chronic and no pet activity He also seemed to have a new cervical lymphadenopathy which was PET positive. This needs to be investigated pt to follow with ENT He does have myelodysplasia and he seems to have increasing splenomegaly and he is followed by oncology He has had ischemic heart disease and this has been stable recent angiogram was unrevealing per patient, and now with newonset afib Sig copd with mild bronchiectasis with chronic pseudomonas and s. maltophilia SIg thoracic aneurysm saccular in nature with no worsening of his aneurysm or any dissection by recent ct Obstructive sleep apnea on CPAP compliant Chronic steroid use, hence immunosuppressed Morbid obesity with noncompliance Previous history of biliary sepsis obstruction no no evidence suggestive of that with previous stent with pneumobilia RECOMMENDATION Ceftaz daily and depending on cultures will switch his abx Prednisone 40 daily and taper in 8 days Afib mgt and anticoag plan per cardio ENT evaluation as out pt CT scan of the chest to evaluate subtle abnormalities he is at in 3 months Continue oxygen next and continue all other medications Discussed with patient and family extensively and he is aware of his diagnosis Consult Acknowledgment - Thank you for your consult request.
--- NOTE | 2017-01-26 14:06 | Cons- Cardiology ---
General Information and HPI Consulting Request Date of Consult: 01/26/17 Requested By: JUAN BUTCHER MD Reason for Consult: Atrial fibrillation with rapid ventricular rate Source of Information: patient, family, old records Exam Limitations: no limitations History of Present Illness: With the patient is a 71-year-old male who is well-known to me. He has a long history of multiple medical issues as noted above. The patient was seen by me in the office about 8 days ago. At that time, he was noted to be in atrial fibrillation of recent onset. In the office, the patient was asymptomatic, and his rate was well controlled on metoprolol. Since the patient was in the midst of an evaluation for his abnormal PET scan results, we elected to hold off on anticoagulating the patient at that time pending further discussion with Dr. Belle and Arvin Shields MD of the nephrology service. The patient is now admitted to the hospital with evidence of an upper respiratory infection/possible pneumonia with a fever and elevated ventricular rate. The patient was admitted to telemetry for closer monitoring of his heart rate and rhythm. As, the patient denies any significant cardiac symptoms at the moment. Allergies/Medications Allergies: Coded Allergies: venom-honey bee (bee venom (honey bee)) (Severe, ANAPHYLAXIS 01/25/17) Penicillins (Intermediate, RASH 01/25/17) Home Med List: Aclidinium [place] (Tudorza Pressair) 400 MCG/ACTUATION AER.POW.BA 1 PUFF INH BID COPD (Reported) Albuterol Sulfate 2.5 MG/3 ML VIAL.NEB 1 Vial INH/ROSALINDA Q4P COPD (Reported) Albuterol Sulfate (Proair Hfa) 8.5 GM HFA.AER.AD 2 PUF INH PRN COPD (Reported ) Aspirin (Lo-Dose Aspirin EC) 81 MG TABLET.DR 1 TAB PO DAILY HEART/BLOOD ( Reported) Atorvastatin Calcium 40 MG TABLET 1 TAB PO DAILY CHOLESTEROL (Reported) Budesonide/Formoterol Fumarate (Symbicort 160-4.5 Mcg Inhaler) 10.2 GM HFA.AER.AD 2 PUF INH BID COPD Calcium Acetate 667 MG TABLET 3 CAP PO WM KIDNEYS (Reported) Ipratropium/Albuterol Sulfate (Combivent Respimat Inhal [place]) 4 GM MIST.INHAL 1 PUFF INH 4 TIMES/DAY COPD (Reported) Metoprolol Tartrate 50 MG TABLET 50 MG PO BID HTN Nephro-Vitamins (Nephro-Angie Tablet) 0.8 MG TABLET 1 TAB PO DAILY SUPPLEMENT (Reported) Oxycodone HCl/Acetaminophen (Oxycodone-Acetaminophen 10-325) 10 MG-325 MG TABLET 0.5 TAB PO PRN PAIN (Reported) Pantoprazole Sodium 40 MG TABLET.DR 1 TAB PO DAILY GI (Reported) Roflumilast (Daliresp) 500 MCG TABLET 1 TAB PO DAILY COPD (Reported) Current Medications: Current Medications Sig/Zoe Start time Last Medication Dose Route Stop Time Status Admin Acetaminophen 650 MG Q6 PRN 01/25 2115 AC PO Acetaminophen 0 .STK-MED ONE 01/25 1706 DC PO Acetaminophen 325 MG ONCE ONE 01/25 1700 DC 01/25 PO 01/25 1701 1719 Albuterol Sulfate 3 ML EVERY 4 HRS/AWAKE 01/26 0800 AC 01/26 INH 1239 Albuterol Sulfate 3 ML Q4P PRN 01/25 2130 AC INH Albuterol Sulfate 2 PUF DAILY 01/25 2121 AC 01/25 INH 2335 Albuterol Sulfate 3 ML ONCE ONE 01/25 1600 DC 01/25 INH 01/25 1601 1643 Aspirin Buffered 81 MG DAILY 01/25 2300 AC 01/26 PO 0915 Atorvastatin Calcium 40 MG 1700 01/26 1700 AC PO Azithromycin 500 MG 1700 01/26 1700 AC Sodium Chloride 250 ML IV Azithromycin 500 MG DAILY 01/26 1000 DC Sodium Chloride 250 ML IV Azithromycin 500 MG ONCE ONE 01/25 1700 DC 01/25 Sodium Chloride 250 ML IV 01/25 1759 1725 Budesonide/ 2 PUF BID 01/25 2200 AC 01/26 Formoterol Fumarate INH 0916 Calcium Acetate 2,001 MG WM 01/26 1700 AC PO Calcium Acetate 667 MG WM 01/26 0800 DC 01/26 PO 1231 Ceftazidime 1,000 MG DAILY 01/26 1125 AC 01/26 IV 1232 Ceftriaxone Sodium 0 .STK-MED ONE 01/25 1707 DC .ROUTE Ceftriaxone Sodium 1,000 MG ONCE ONE 01/25 1700 DC 01/25 IV 01/25 1701 1719 Diltiazem HCl 0 .STK-MED ONE 01/25 1602 DC .ROUTE Diltiazem HCl 20 MG ONCE ONE 01/25 1600 DC 01/25 IV PUSH 01/25 1601 1624 Heparin Sodium 5,000 UNIT Q8 01/26 0100 AC 01/26 (Porcine) SC 0601 Ipratropium [place] 2.5 ML EVERY 4 HRS/AWAKE 01/26 0800 AC 01/26 INH 1239 Ipratropium [place] 2.5 ML ONCE ONE 01/25 2345 DC INH 01/25 2346 Methylprednisolone 40 MG Q8 01/25 2300 AC 01/26 IV 0601 Methylprednisolone 0 .STK-MED ONE 01/25 1613 DC .ROUTE Methylprednisolone 125 MG ONCE ONE 01/25 1600 DC 01/25 IV 01/25 1601 1624 Metoprolol Tartrate 50 MG BID 01/25 2300 AC 01/26 PO 0831 Metoprolol Tartrate 0 .STK-MED ONE 01/25 2004 DC PO Metoprolol Tartrate 50 MG ONCE ONE 01/26 2000 DC 01/25 PO 01/25 Metoprolol Tartrate 0 .STK-MED ONE 01/25 1640 DC IV Metoprolol Tartrate 5 MG ONCE ONE 01/25 1630 DC 01/25 IV 01/25 1631 1653 Morphine Sulfate 0.5 MG Q8P PRN 01/25 2130 AC IV Multivitamins 1 TAB DAILY 01/25 2300 AC 01/26 PO 0915 Omeprazole 40 MG DAILY AC 01/26 0700 AC 01/26 PO 0601 Oxycodone HCl 5 MG Q6 PRN 01/25 2115 AC PO Oxycodone/ 0 .STK-MED ONE 01/25 1620 DC Acetaminophen PO Oxycodone/ 1 TAB ONCE ONE 01/25 1615 DC 01/25 Acetaminophen PO 01/25 1616 1624 Polyethylene Glycol 17 GM AT BEDTIME 01/25 2200 AC 01/25 PO 2335 Roflumilast 500 MCG DAILY 01/26 1000 AC 01/26 PO 0916 Senna/Docusate Sodium 1 TAB AT BEDTIME 01/25 2200 AC 01/25 PO 2334 Sodium Chloride 250 ML BOLUS ONE 01/25 1700 DC 01/25 IV 01/25 1759 1719 Tiotropium [place] 1 PUF DAILY 01/26 1000 AC 01/26 INH 0916 Past History Travel History Traveled to [place] past 21 day No Medical History Blood Transfusion Hx: No Neurological: NONE EENT: NONE Cardiovascular: AFIB, CAD, hypertension, stents, severe pulmonary hypertension Respiratory: asthma, COPD, 2L O2 DEPENDANT CPAP EACH NIGHT Gastrointestinal: NONE Hepatic: hepatic congestion, splenomegaly Renal: ESRD on HD, FISTULA ON L UPPER EXT Musculoskeletal: NONE Psychiatric: NONE Endocrine: DIABETES? Blood Disorders: myelodysplastic syndrome. Cancer(s): NONE DIRECTOR CARDIOLOGY/Reproductive: NONE Surgical History Surgical History: cholecystectomy, AV FISTULA LUE Family History Relations & Conditions If Any: FATHER (CKD on HD, CAD, MS, DM). MOTHER (CKD on HD, CAD, MS, DM). FATHER (CKD on Hemodialysis, CAD, DM). MOTHER (CKD on Hemodialysis, CAD, MS). Psychosocial History Where Do You Live? Home Who Do You Live With? spouse Services at Home: Oxygen Primary Language: Angolan Smoking Status: Never Smoked Functional Ability ADLs Independent: eating, toileting. Needs Assist: bathing. Ambulation: independent ECHO Results (as available) Report: PATIENT: JAMES NELSON PRESENT AGE: 71 PATIENT ACCOUNT NO: [id number] : 45 LOCATION: [facility] ORDERING PHYSICIAN: SANDRA LIGHT MD SERVICE DATE: 09/17/16- EXAM TYPE: CARD - ECHOCARDIOGRAM JAMES NELSON Age: 71 : 1945 Gender: M Exam Date: 09/17/2016 16:35 Exam Location: [facility] Ht (in): 65 Wt (lb): 195 BSA: 2.05 BP: 154 / 90 Ordering Physician: SANDRA LIGHT MD Referring Physician: Kenn Maldonado MD Technologist: Puja Dewitt [facility] Room Number: 101 Indications: ARRHYTHMIAS Rhythm: Sinus Technical Quality: Fair, Technically difficult study FINDINGS Left Ventricle Normal size left ventricle. Mildly reduced global left ventricular systolic function. Mildly abnormal left ventricular ejection fraction estimated at 40-45%. Right Ventricle Right ventricle not well visualized, grossly normal. Right Atrium Normal right atrial size. Left Atrium Moderate left atrial dilatation. Mitral Valve Mild thickening/calcification of the anterior mitral valve leaflet. Moderate mitral annular calcification. [id number] mitral regurgitation. Aortic Valve Trileaflet aortic valve. Diffuse thickening of the aortic valve cusps with reduced excursion. Mild aortic stenosis. Tricuspid Valve Tricuspid valve not well visualized, grossly normal. Mild tricuspid regurgitation. Right ventricular systolic pressure estimated at 38 mmHg. Pulmonic Valve Pulmonic valve not well visualized, grossly normal. Pericardium No pericardial effusion. Great Vessels Aortic root and proximal ascending aorta not well visualized, grossly normal. CONCLUSIONS 1. This was a technically dificult examination. 2. Fibrocalcific degeneration is present in the aortic valve with mild valvular stenosis (PG 16 mmHg; MG 8 mmHg;JANIE 1.8 cm2). 3. Thickening and calcification of the mitral leaflets is present with moderate anular calcification and mild to moderate mitral insufficiency with moderate left atrial enlargement. 4. There is no significant pericardial fluid present. 5. The left ventricular chamber size is normal. There is global hypokinesia present which is worse in the inferior and apical segments. The ejection fraction is approximately 40-45%. Diastolic dysfunction is present. 6. The right heart structures are grossly normal but were not optimally assessed. Mild tricuspid insufficiency is present with no evidence of pulmonary hypertension. 7. Lipomatous atrial septal hypertrophy is present. 8. Since the prior study, the LV ejection fraction has decreased. Kenn Maldonado M.D. (Electronically Signed) Final Date: 17 September 2016 20:47 MEASUREMENTS (Male / Female) Normal Values 2D ECHO LV Diastolic Diameter PLAX 5.4 cm 4.2 - 5.9 / 3.9 - 5.3 cm LV Systolic Diameter PLAX 3.6 cm 2.1 - 4.0 cm LV Fractional Shortening PLAX 33.3 % 25 - 46 % LV Ejection Fraction 2D Teich 61.5 % IVS Diastolic Thickness 1.1 cm LVPW Diastolic Thickness 1.1 cm LV Relative Wall Thickness 0.4 RV Internal Dim ED PLAX 2.1 cm 1.9 - 3.8 cm LVOT Diameter 2.0 cm Aortic Root Diameter 3.4 cm LA Systolic Diameter LX 3.4 cm 3.0 - 4.0 / 2.7 - 3.8 cm LA Volume 67.0 cm 18 - 58 / 22 - 52 cm Ascending Aorta Diameter 3.4 cm DOPPLER AV Peak Velocity 209.0 cm/s AV Peak Gradient 17.5 mmHg AV Mean Velocity 141.0 cm/s AV Mean Gradient 9.0 mmHg AV Velocity Time Integral 37.3 cm LVOT Peak Velocity 111.0 cm/s LVOT Peak Gradient 4.9 mmHg LVOT Mean Velocity 74.2 cm/s LVOT Mean Gradient 3.0 mmHg LVOT Velocity Time Integral 21.7 cm LVOT Stroke Volume 68.2 cm AV Area Cont Eq vti 1.8 cm AV Area Cont Eq pk 1.7 cm MV Peak Velocity 125.0 cm/s MV Peak Gradient 6.3 mmHg MV Mean Velocity 78.2 cm/s MV Mean Gradient 3.0 mmHg Mitral E Point Velocity 102.0 cm/s Mitral A Point Velocity 115.0 cm/s Mitral E to A Ratio 0.9 MV PHT Velocity 117.0 cm/s MV Deceleration [place] 377.0 cm/s MV Pressure Half Time 93.1 ms MV Area PHT 2.4 cm MV Deceleration Time 320.0 ms TR Peak Velocity 289.0 cm/s TR Peak Gradient 33.4 mmHg Right Atrial Pressure 5.0 mmHg Pulmonary Artery Systolic Pressu 38.4 mmHg Right Ventricular Systolic Press 38.4 mmHg PV Peak Velocity 106.0 cm/s PV Peak Gradient 4.5 mmHg PV Mean Velocity 71.2 cm/s PV Mean Gradient 2.0 mmHg PV Velocity Time Integral 15.6 cm LV E' Lateral Velocity 4.8 cm/s Mitral E to LV E' Lateral Ratio 21.0 LV E' Septal Velocity 3.7 cm/s Mitral E to LV E' Septal Ratio 27.6 DICTATED BY: Anne MALDONADO MD DATE/TIME DICTATED:09/17/162046 ADMINISTRATIVE LIBRARY ASSISTANT:JANIE DATE/TIME TRANSCRIBED:09/17/162046 CONFIDENTIAL, DO NOT COPY WITHOUT APPROPRIATE AUTHORIZATION. <Electronically signed in Other Vendor System> SIGNED BY: Anne MALDONADO MD 09/17/162046 Exam & Diagnostic Data Vital Signs and I&O Vital Signs Date Time Temp Pulse Resp B/P B/P Pulse O2 O2 Flow FiO2 Mean Ox Delivery Rate 01/26 0832 114 160/78 01/26 0831 107 160/78 01/26 0800 94 Nasal 3.0L Cannula 01/26 08 97.2 22 94 Nasal 3.0L Cannula 01/26 0051 98.3 67 20 114/58 95 Nasal Cannula 01/26 0000 96 CPAP 3.0L 01/25 2334 80 110/70 01/25 2154 Nasal 3.0L Cannula 01/25 2035 98.6 60 20 108/60 95 Nasal 4.0L Cannula 01/25 2034 Nasal 4.0L Cannula 01/25 2002 106 125/58 01/25 2001 97.9 106 20 125/58 98 Nasal 4.0L Cannula 01/25 1828 98.2 01/25 182 98.2 110 20 116/62 97 Nasal 4.0L Cannula 01/25 1725 110 25 114/56 96 Nasal 4.0L Cannula 01/25 1653 128 115/70 01/25 1645 134 22 115/72 97 Room Air Room Air 01/25 1624 110 114/62 01/25 1620 97 Nasal 4.0L Cannula 01/25 1612 110 114/62 01/25 1609 122 24 96 Nasal 4.0L Cannula 01/25 1600 100.5 144 24 116/60 89 Nasal 2.0L Cannula Intake & Output 01/26 0800 01/26 0000 01/25 0000 Intake Total 200 250 Output Total Balance 200 250 Intake, IV 10 Intake, Oral 200 240 Patient 168 lb Weight Weight Reported by Patient Measurement Method Physical Exam: General Appearance Alert, Oriented X3, Cooperative, No Acute Distress Skin No Significant Lesion HEENT Atraumatic, PERRLA, EOMI, Mucous Membr. moist/pink Neck Supple, No JVD, no cervical lymphadenopathy Cardiovascular ireegularly irregular. 2/6 systolic murmur Lungs Diffusely rhoncherous, particularly in R. lobes. Had some chrackles nad wheezes as well Abdomen tomás tenderness with deep palpation in RUQ. Neurological Normal Speech Extremities NO EDEMA Labs/Jesus Results: Laboratory Tests 01/26 01/25 01/25 0445 2210 1855 Chemistry Lactic Acid Cancelled Troponin I (<0.11 ng/ml) 0.06 0.08 Coagulation PT (9.4 - 12.5 SEC) 14.3 H INR (0.90 - 1.17) 1.37 H Hematology CBC w Diff NO MAN DIFF REQ WBC (4.8 - 10.8 /CUMM) 4.9 RBC (4.70 - 6.10 /CUMM) 3.71 L Hgb (14.0 - 18.0 G/DL) 9.9 L Hct (42 - 52 %) 31.9 L MCV (80.0 - 94.0 FL) 85.9 MCH (27.0 - 31.0 PG) 26.6 L RDW (11.5 - 14.5 %) 17.5 H Plt Count (130 - 400 /CUMM) 169 MPV (7.4 - 10.4 FL) 10.4 Gran % (42.2 - 75.2 %) 89.9 H Lymphocytes % (20.5 - 51.1 %) 8.7 L Monocytes % (1.7 - 9.3 %) 1.2 L Eosinophils % (0 - 5 %) 0 Basophils % (0.0 - 2.0 %) 0.2 Absolute Granulocytes (1.4 - 6.5 /CUMM) 4.4 Absolute Lymphocytes (1.2 - 3.4 /CUMM) 0.4 L Absolute Monocytes (0.10 - 0.60 /CUMM) 0.1 L Absolute Eosinophils (0.0 - 0.7 /CUMM) 0 Absolute Basophils (0.0 - 0.2 /CUMM) 0 PUBS MCHC (33.0 - 37.0 G/DL) 31.0 L 05/26 1600 Chemistry Sodium (137 - 145 mmol/L) 135 L Potassium (3.5 - 5.1 mmol/L) 4.3 Chloride (98 - 107 mmol/L) 93 L Carbon Dioxide (22 - 30 mmol/L) 28 Anion Gap (5 - 16) 14 BUN (9 - 20 mg/dL) 30 H Creatinine (0.7 - 1.2 mg/dL) 4.1 H Estimated GFR (>60 ml/min) 14 L BUN/Creatinine Ratio (7 - 25 %) 7.3 Glucose (65 - 99 mg/dL) 86 Lactic Acid (0.7 - 2.1 mmol/L) 1.3 Calcium (8.4 - 10.2 mg/dL) 8.5 Magnesium (1.6 - 2.3 mg/dL) 1.7 Total Bilirubin (0.2 - 1.3 mg/dL) 0.8 AST (17 - 59 U/L) 23 ALT (21 - 72 U/L) 39 Alkaline Phosphatase (< 127 U/L) 120 Troponin I (<0.11 ng/ml) 0.06 [id number] Pept (<125 pg/mL) 00458 H Total Protein (6.3 - 8.2 g/dL) 6.7 Albumin (3.5 - 5.0 g/dL) 3.6 Globulin (1.9 - 4.2 gm/dL) 3.1 Albumin/Globulin Ratio (1.1 - 2.2 %) 1.2 TSH (0.270 - 4.200 uIU/mL) 1.120 Free T4 (0.78 - 2.44 ng/dL) 1.51 Coagulation PT (9.4 - 12.5 SEC) 15.7 H INR (0.90 - 1.17) 1.50 H APTT (25 - 37 SEC) 34 Hematology CBC w Diff NO MAN DIFF REQ WBC (4.8 - 10.8 /CUMM) 8.2 RBC (4.70 - 6.10 /CUMM) 3.92 L Hgb (14.0 - 18.0 G/DL) 10.4 L Hct (42 - 52 %) 33.8 L MCV (80.0 - 94.0 FL) 86.2 MCH (27.0 - 31.0 PG) 26.6 L RDW (11.5 - 14.5 %) 17.5 H Plt Count (130 - 400 /CUMM) 207 MPV (7.4 - 10.4 FL) 9.9 Gran % (42.2 - 75.2 %) 85.1 H Lymphocytes % (20.5 - 51.1 %) 6.2 L Monocytes % (1.7 - 9.3 %) 8.0 Eosinophils % (0 - 5 %) 0.3 Basophils % (0.0 - 2.0 %) 0.4 Absolute Granulocytes (1.4 - 6.5 /CUMM) 7.0 H Absolute Lymphocytes (1.2 - 3.4 /CUMM) 0.5 L Absolute Monocytes (0.10 - 0.60 /CUMM) 0.7 H Absolute Eosinophils (0.0 - 0.7 /CUMM) 0 Absolute Basophils (0.0 - 0.2 /CUMM) 0 PUBS MCHC (33.0 - 37.0 G/DL) 30.9 L Diagnostic Data EKG Results Atrial fibrillation with elevated ventricular rate and nonspecific ST-T changes. CXR Results FINDINGS: Cardiac leads overlie the chest. The lungs are well expanded. There is a right basilar airspace opacity. No pleural effusion or pneumothorax. The cardiomediastinal silhouette is unchanged, with a tortuous and calcified aorta. Bilateral hilar prominence. IMPRESSION: Right basilar airspace opacity suspicious for pneumonia. This likely correlates to the appearance on prior PET/CT, likely increased. Hilar prominence may be associated with prominent vasculature. Assessment/Plan Assessment/Plan Assessment: 1. Probable right lower lobe pneumonia 2. Atrial for ablation with initially elevated rate, now rate controlled 3. History of coronary disease 4. Hypertension 5. End-stage renal disease on hemodialysis Recommendations: -For now, since the patient's rate appears to be controlled, I will continue his regular medication doses with close monitoring of his rhythm and rate. -Check troponin 2 -Nephrology input pending -Continue as per the internal medicine and pulmonary teams -Continue regular medications for now -Further discussions about the role of long-term anticoagulation to be addressed. For now, in view of the patient's upcoming colonoscopy, etc. I would not anticoagulate at the moment. Consult Acknowledgment - Thank you for your consult request.
--- NOTE | 2017-01-26 16:59 | PN- Att Addend ---
Attending MD Review Statement Attending Statement Attending MD Statement: examined this patient, discuss w/resident/PA/ACADEMIC COMPUTING DIRECTOR, agreed w/resident/PA/ACADEMIC COMPUTING DIRECTOR, reviewed EMR data (avail), discussed w/nursing Attending Assessment/Plan: Laboratory Tests 01/26/17 0445: Troponin I 0.06, PT 14.3 H, INR 1.37 H, CBC w Diff NO MAN DIFF REQ, RBC 3.71 L, MCV 85.9, MCH 26.6 L, RDW 17.5 H, MPV 10.4, Gran % 89.9 H, Lymphocytes % 8.7 L, Monocytes % 1.2 L, Eosinophils % 0, Basophils % 0.2, Absolute Granulocytes 4.4, Absolute Lymphocytes 0.4 L, Absolute Monocytes 0.1 L, Absolute Eosinophils 0, Absolute Basophils 0, PUBS MCHC 31.0 L 01/25/17 2210: Troponin I 0.08 01/25/17 1855: Lactic Acid Cancelled Vital Signs Date Time Temp Pulse Resp B/P B/P Pulse O2 O2 Flow FiO2 Mean Ox Delivery Rate 01/26 1556 98 Nasal 3.0L Cannula 01/26 0832 114 160/78 01/26 0831 107 160/78 01/26 0800 94 Nasal 3.0L Cannula 01/26 0800 97.2 22 94 Nasal 3.0L Cannula 01/26 0747 96 Nasal 3.0L Cannula 01/26 0051 98.3 67 20 114/58 95 Nasal Cannula 01/26 0000 96 CPAP 3.0L 01/25 2334 80 110/70 01/25 2154 Nasal 3.0L Cannula 01/25 2035 98.6 60 20 108/60 95 Nasal 4.0L Cannula 01/25 2034 Nasal 4.0L Cannula 01/25 2002 106 125/58 01/25 2001 97.9 106 20 125/58 98 Nasal 4.0L Cannula 01/25 1828 98.2 01/25 182 98.2 110 20 116/62 97 Nasal 4.0L Cannula 01/25 1725 110 25 114/56 96 Nasal 4.0L Cannula Patient seen and examined at bedside. Discussed with patient the care plan. Patient on potline monitor is showing heart rate that in the range of 90-100 and is currently in atrial fibrillation. We will continue her on metoprolol for rate control. Patient gave history of fever subjectively him at home but he did not check the fever with a thermometer. Discussed with pre k teacher and they recommended started patient on ceftazidime. Patient does have a history of end- stage renal disease on hemodialysis Saturday witnessed and Saturday. Discussed with washer hand the care plan. They do not think the patient needs any additional dialysis and I do agree with that. Most likely cause of patient's shortness of breath was rapid atrial fibrillation with rates in 150s at the time of admission. Discussed with patient as well as patient's the care plan at bedside
[2017-01-26 17:39] VITALS: BP 148/70
[2017-01-27 08:23] VITALS: BP 151/78
--- NOTE | 2017-01-27 09:28 | PN- Housestaff ---
Subjective Follow-up For: Atrial fibrillation with RVR Acute on chronic hypoxic respiratory failure ESRD on on dialysis Tele-Events Since Last Visit: Afib/aflutter with HR in 80s-120s Subjective: Patient seen and examined. No events reported overnight. Endorses persistent dyspnea on exertion though. Denies any headache, chest discomfort, palpitations, lightheadedness, dizziness, abdominal pain, n/v/c/d. Review of Systems Constitutional: Reports: see HPI. Objective Last 24 Hrs of Vital Signs/I&O Vital Signs Date Time Temp Pulse Resp B/P B/P Pulse O2 O2 Flow FiO2 Mean Ox Delivery Rate 01/27 0941 105 151/78 01/27 0823 97.7 105 18 151/78 96 Nasal 3.0L Cannula 01/27 0800 Nasal 3.0L Cannula 01/27 0635 97 Nasal 3.0L Cannula 01/27 0000 94 Nasal 3.0L Cannula 01/26 1739 97.8 100 20 148/70 96 01/26 1600 Nasal 3.0L Cannula 01/26 1556 98 Nasal 3.0L Cannula Intake & Output 01/27 1600 01/27 0800 01/27 0000 Intake Total 100 680 Output Total Balance 100 680 Intake, Oral 100 680 Physical Exam General Appearance: Alert, Oriented X3, Cooperative, No Acute Distress Other Physical Findings: HEENT: Atraumatic Cardiovascular: Normal S1, Normal S2, Irregularly irregular Lungs: mild ronchrous bilaterally, no wheezing Abdomen: Normal Bowel Sounds, Soft, No Tenderness Neurological: Normal Speech, Normal Tone Extremities: No Cyanosis, Normal Pulses Vascular: Normal Pulses Current Medications: Current Medications Sig/Zoe Start time Last Medication Dose Route Stop Time Status Admin Acetaminophen 650 MG Q6 PRN 01/25 2115 AC PO Albuterol Sulfate 3 ML EVERY 4 HRS/AWAKE 01/26 0800 AC 01/27 INH 0632 Albuterol Sulfate 3 ML Q4P PRN 01/25 2130 AC INH Albuterol Sulfate 2 PUF DAILY 01/25 INH 0940 Aspirin Buffered 81 MG DAILY 01/25 2300 AC 01/27 PO 0940 Atorvastatin Calcium 40 MG 01/26 1700 AC 01/26 PO 1703 Azithromycin 500 MG 01/26 17001/26 Sodium Chloride 250 ML IV 1658 Budesonide/ 2 PUF BID 01/25 Formoterol Fumarate INH 0837 Calcium Acetate 2,001 MG WM 01/26 1700 AC 01/27 PO 1225 Ceftazidime 1,000 MG DAILY 01/26 1125 AC 01/27 IV 0939 Docusate Sodium 100 MG BID 01/26 2200 AC 01/27 PO 0940 Heparin Sodium 5,000 UNIT Q8 01/26 0100 AC 01/27 (Porcine) SC 0619 Ipratropium [place] 2.5 ML EVERY 4 HRS/AWAKE 01/26 0800 AC 01/27 INH 0632 Methylprednisolone 40 MG Q8 01/25 2300 DC 01/26 IV 1540 Metoprolol Tartrate 50 MG BID 01/25 2300 AC 01/27 PO 0941 Morphine Sulfate 0.5 MG Q8P PRN 01/25 2130 AC IV Multivitamins 1 TAB DAILY 01/25 2300 AC 01/27 PO 0940 Omeprazole 40 MG DAILY AC 01/26 0700 AC 01/27 PO 0619 Oxycodone HCl 5 MG Q6 PRN 01/25 2115 AC PO Polyethylene Glycol 17 GM AT BEDTIME 01/25 2200 AC 01/25 PO 2335 Prednisone 40 MG DAILY 01/27 1000 AC 01/27 PO 0942 Roflumilast 500 MCG DAILY 01/26 1000 AC 01/27 PO 0941 Senna/Docusate Sodium 1 TAB AT BEDTIME 01/25 2200 AC 01/25 PO 2334 Tiotropium [place] 1 PUF DAILY 01/26 1000 AC 01/27 INH 0837 Assessment/Plan Assessment: 71-year-old man with past medical history significant for chronic COPD, oxygen dependent 2 L at baseline, septic sleep apnea, coronary artery disease status post right RCA stenting 10 years ago, pulmonary hypertension, descending thoracic artery aneurysm, end-stage renal disease on dialysis Saturday and Saturday came to emergency department with shortness of breath and dyspnea on exertion which has been going on for the last 3-4 days. Patient went to his dialysis today and was told to go to emergency department. Patient also has increased phlegm for the last 4 days along with more shortness of breath and requiring 3 L than 2 L at baseline. Atrial fibrillation with RVR with h/o CHF Most likely 2/2 possible CHF ( High BNP ) vs ACS (Negative Troponins and No ST changes on EKG) VS vs ? Hyperthyroidism. Current [id number] score 4, Stroke risk was 4.8% per year. Patient is currently not on any anticoagulation as per discussion with banquet stewardess. Got IV cardizem push and IV metoprolol on admission. * Continue Lopressor dose as per HR, Hold if less than 60. * Patient not on any current anticoagulation, please confirm with Cardiology about the AC * Follow echo to rule out possibility of thrombus, last echo showed EF of 45% in December. Patient has history of previous heart failure with preserved left ventricular systolic function Acute on chronic hypoxic respiratory failure 2/2 COPD exacerbation Patient has increased sputum production with change in the color of sputum. Patient remained afebrile overnight Chest x-ray showed right basilar opacity which is not a significant change from the previous imaging. Continue azithromycin along with total respiratory care. Appreciate pulmonology recs Continue Prednisone 40mg PO daily Continue CPAP for obstructive sleep apnea Chronic kidney disease on dialysis Appreciate nephro recs - may need to arrange for dialysis in the hospital Patient is on subcutaneous heparin for DVT prophylaxis Patient is on renal dialysis type Patient is on pain pathway Patient is full code Problem List: 1. LLUVIA (obstructive sleep apnea) 2. Abdominal aneurysm 3. ESRD (end stage renal disease) 4. Pneumonia 5. Atrial fibrillation 6. Rapid atrial fibrillation 7. Chronic renal failure 8. COPD (chronic obstructive pulmonary disease) 9. COPD exacerbation Pain Ratin Pain Location: 0 Pain Goal: Remain pain free Pain Plan: Mild path Tomorrow's Labs & Rationales: SINA ARRIAGA Consulting Request: Consulting Specialty: Cardiology SINA ARRIAGA Consulting Request: Consulting Specialty: Cardiology
--- NOTE | 2017-01-27 13:19 | PN- Att Addend ---
Attending MD Review Statement Attending Statement Attending MD Statement: examined this patient, discuss w/resident/PA/NUCLEAR EQUIPMENT OPERATOR, agreed w/resident/PA/NUCLEAR EQUIPMENT OPERATOR, reviewed EMR data (avail), discussed w/nursing Attending Assessment/Plan: Vital Signs Date Time Temp Pulse Resp B/P B/P Pulse O2 O2 Flow FiO2 Mean Ox Delivery Rate 01/27 0941 105 151/78 01/27 0823 97.7 105 18 151/78 96 Nasal 3.0L Cannula 01/27 0800 Nasal 3.0L Cannula 01/27 0635 97 Nasal 3.0L Cannula 01/27 0000 94 Nasal 3.0L Cannula 01/26 1739 97.8 100 20 148/70 96 01/26 1600 Nasal 3.0L Cannula 01/26 1556 98 Nasal 3.0L Cannula Patient seen and examined at bedside. Discussed with patient the care plan. Patient's telemetry is showing heart rate ranging from 100 to 110 in atrial fibrillation. Patient states his shortness of breath is not getting much better compared with yesterday. Continue patient currently on ceftazidime and azithromycin for his pneumonia as per pulmonary recommendation. We have decreased his steroids to 40 mg by mouth prednisone today from IV Solu-Medrol. We will see the patient does better tomorrow and then make the discharge plan accordingly.
--- NOTE | 2017-01-27 13:43 | PN- Cardiology ---
Subjective Subjective: Clinically, the patient continues to feel poorly with no appetite and significant dyspnea. He denies any other cardiac symptoms however. He remains in atrial fibrillation with good rate control. Objective Vital Signs and I&Os Vital Signs Date Time Temp Pulse Resp B/P B/P Pulse O2 O2 Flow FiO2 Mean Ox Delivery Rate 01/27 0941 105 151/78 01/27 0823 97.7 105 18 151/78 96 Nasal 3.0L Cannula 01/27 0800 Nasal 3.0L Cannula 01/27 0635 97 Nasal 3.0L Cannula 01/27 0000 94 Nasal 3.0L Cannula 01/26 1739 97.8 100 20 148/70 96 01/26 1600 Nasal 3.0L Cannula 01/26 1556 98 Nasal 3.0L Cannula Intake & Output 01/27 1600 01/27 0800 01/27 0000 01/26 1600 01/26 0800 01/26 0000 Intake Total 100 680 400 200 250 Output Total Balance 100 680 400 200 250 Intake, IV 10 Intake, Oral 100 680 400 200 240 Patient 168 lb Weight Weight Reported by Patient Measurement Method Current Medications: Current Medications Sig/Zoe Start time Last Medication Dose Route Stop Time Status Admin Acetaminophen 650 MG Q6 PRN 01/25 2115 AC PO Albuterol Sulfate 3 ML EVERY 4 HRS/AWAKE 01/26 0800 AC 01/27 INH 0632 Albuterol Sulfate 3 ML Q4P PRN 01/25 2130 AC INH Albuterol Sulfate 2 PUF DAILY 01/25 2121 AC 01/27 INH 0940 Aspirin Buffered 81 MG DAILY 01/25 2300 AC 01/27 PO 0940 Atorvastatin Calcium 40 MG 01/26 1700 AC 01/26 PO 1703 Azithromycin 500 MG 01/26 17001/26 Sodium Chloride 250 ML IV 1658 Budesonide/ 2 PUF BID 01/25 2200 AC 01/27 Formoterol Fumarate INH 0837 Calcium Acetate 2,001 MG WM 01/26 1700 01/27 PO 1225 Ceftazidime 1,000 MG DAILY 01/26 1125 AC 01/27 IV 0939 Docusate Sodium 100 MG BID 01/26 220 AC 01/27 PO 0940 Heparin Sodium 5,000 UNIT Q8 01/26 0100 AC 01/27 (Porcine) SC 0619 Ipratropium [place] 2.5 ML EVERY 4 HRS/AWAKE 01/26 0800 AC 01/27 INH 0632 Methylprednisolone 40 MG Q8 01/25 2300 DC 01/26 IV 1540 Metoprolol Tartrate 50 MG BID 01/25 2300 AC 01/27 PO 0941 Morphine Sulfate 0.5 MG Q8P PRN 01/25 2130 AC IV Multivitamins 1 TAB DAILY 01/25 2300 AC 01/27 PO 0940 Omeprazole 40 MG DAILY AC 01/26 0700 AC 01/27 PO 0619 Oxycodone HCl 5 MG Q6 PRN 01/25 2115 AC PO Polyethylene Glycol 17 GM AT BEDTIME 01/25 220 AC 01/25 PO 2335 Prednisone 40 MG DAILY 01/27 1000 AC 01/27 PO 0942 Roflumilast 500 MCG DAILY 01/26 1000 AC 01/27 PO 0941 Senna/Docusate Sodium 1 TAB AT BEDTIME 01/25 2200 AC 01/25 PO 2334 Tiotropium [place] 1 PUF DAILY 01/26 1000 AC 01/27 INH 0837 Results Last 48 Hrs of Labs/Mics: Laboratory Tests 01/26/17 0600: Urine Color Cancelled, Urine Clarity Cancelled, Urine pH Cancelled, Ur Specific [place] Cancelled, Urine Protein Cancelled, Urine Ketones Cancelled, Urine Nitrite Cancelled, Urine Bilirubin Cancelled, Urine Urobilinogen Cancelled, Ur Leukocyte Esterase Cancelled, Ur Microscopic Cancelled, Urine Hemoglobin Cancelled, Urine Glucose Cancelled 01/26/17 0445: Troponin I 0.06, PT 14.3 H, INR 1.37 H, CBC w Diff NO MAN DIFF REQ, RBC 3.71 L, MCV 85.9, MCH 26.6 L, RDW 17.5 H, MPV 10.4, Gran % 89.9 H, Lymphocytes % 8.7 L, Monocytes % 1.2 L, Eosinophils % 0, Basophils % 0.2, Absolute Granulocytes 4.4, Absolute Lymphocytes 0.4 L, Absolute Monocytes 0.1 L, Absolute Eosinophils 0, Absolute Basophils 0, PUBS MCHC 31.0 L 01/25/17 2210: Troponin I 0.08 01/25/17 1855: Lactic Acid Cancelled 01/25/17 1600: Anion Gap 14, Estimated GFR 14 L, BUN/Creatinine Ratio 7.3, Glucose 86, Lactic Acid 1.3, Calcium 8.5, Magnesium 1.7, Total Bilirubin 0.8, AST 23, ALT 39, Alkaline Phosphatase 120, Troponin I 0.06, [id number] Pept 42383 H, Total Protein 6.7, Albumin 3.6, Globulin 3.1, Albumin/Globulin Ratio 1.2, TSH 1.120, Free T4 1.51, PT 15.7 H, INR 1.50 H, APTT 34, CBC w Diff NO MAN DIFF REQ, RBC 3.92 L, MCV 86.2, MCH 26.6 L, RDW 17.5 H, MPV 9.9, Gran % 85.1 H, Lymphocytes % 6.2 L, Monocytes % 8.0, Eosinophils % 0.3, Basophils % 0.4, Absolute Granulocytes 7.0 H, Absolute Lymphocytes 0.5 L, Absolute Monocytes 0.7 H, Absolute Eosinophils 0, Absolute Basophils 0, PUBS MCHC 30.9 L Microbiology 01/25 1715 LOWER RESP: Respiratory Culture - COMP PSEUDOMONAS AERUGINOSA YEAST 01/25 1715 LOWER RESP: Gram Stain - COMP Assessment/Plan Assessment/Plan Assessment: 1. Probable right lower lobe pneumonia 2. Atrial for ablation with initially elevated rate, now rate controlled 3. History of coronary disease 4. Hypertension 5. End-stage renal disease on hemodialysis Recommendations: -For now, since the patient's rate appears to be controlled, I will continue his regular medication doses with close monitoring of his rhythm and rate. -Serial troponins negative -Nephrology input noted -Continue as per the internal medicine and pulmonary teams -Continue regular medications for now -Further discussions about the role of long-term anticoagulation to be addressed. For now, in view of the patient's upcoming colonoscopy, etc. I would not anticoagulate at the moment. Continue telemetry? Yes
--- NOTE | 2017-01-27 14:13 | PN- Pulmonary ---
Subjective HPI/Critical Care Issues: Clinically, the patient continues to feel poorly with no appetite and significant dyspnea. He denies any other cardiac symptoms however. He remains in atrial fibrillation with good rate control. Objective Current Medications: Current Medications Sig/Zoe Start time Last Medication Dose Route Stop Time Status Admin Acetaminophen 650 MG Q6 PRN 01/25 2115 AC PO Albuterol Sulfate 3 ML EVERY 4 HRS/AWAKE 01/26 0800 AC 01/27 INH 0632 Albuterol Sulfate 3 ML Q4P PRN 01/25 2130 AC INH Albuterol Sulfate 2 PUF DAILY 01/25 212 AC 01/27 INH 0940 Aspirin Buffered 81 MG DAILY 01/25 2300 AC 01/27 PO 0940 Atorvastatin Calcium 40 MG 1700 01/26 1700 AC 01/26 PO 1703 Azithromycin 500 MG 17001/26 170 AC 01/26 Sodium Chloride 250 ML IV 1658 Budesonide/ 2 PUF BID 01/25 2200 AC 01/27 Formoterol Fumarate INH 0837 Calcium Acetate 2,001 MG WM 01/26 1700 AC 01/27 PO 1225 Ceftazidime 1,000 MG DAILY 01/26 1125 AC 01/27 IV 0939 Docusate Sodium 100 MG BID 01/26 2200 AC 01/27 PO 0940 Heparin Sodium 5,000 UNIT Q8 01/26 0100 AC 01/27 (Porcine) SC 1405 Ipratropium [place] 2.5 ML EVERY 4 HRS/AWAKE 01/26 0800 AC 01/27 INH 0632 Methylprednisolone 40 MG Q8 01/25 2300 DC 01/26 IV 1540 Metoprolol Tartrate 50 MG BID 01/25 2300 AC 01/27 PO 0941 Morphine Sulfate 0.5 MG Q8P PRN 01/25 213 AC IV Multivitamins 1 TAB DAILY 01/25 230 AC 01/27 PO 0940 Omeprazole 40 MG DAILY AC 01/26 0700 AC 01/27 PO 0619 Oxycodone HCl 5 MG Q6 PRN 01/25 2115 AC PO Polyethylene Glycol 17 GM AT BEDTIME 01/250 AC 01/25 PO 2335 Prednisone 40 MG DAILY 01/27 1000 AC 01/27 PO 0942 Roflumilast 500 MCG DAILY 01/26 1000 AC 01/27 PO 0941 Senna/Docusate Sodium 1 TAB AT BEDTIME 01/25 2200 AC 01/25 PO 2334 Tiotropium [place] 1 PUF DAILY 01/26 1000 AC 01/27 INH 0837 Vital Signs & I&O Last 24 Hrs of Vitals and I&O: Vital Signs Date Time Temp Pulse Resp B/P B/P Pulse O2 O2 Flow FiO2 Mean Ox Delivery Rate 01/27 0941 105 151/78 01/27 0823 97.7 105 18 151/78 96 Nasal 3.0L Cannula 01/27 0800 Nasal 3.0L Cannula 01/27 0635 97 Nasal 3.0L Cannula 01/27 0000 94 Nasal 3.0L Cannula 01/26 1739 97.8 100 20 148/70 96 01/26 1600 Nasal 3.0L Cannula 01/26 1556 98 Nasal 3.0L Cannula Intake & Output 01/27 1600 01/27 0800 01/27 0000 Intake Total 100 680 Output Total Balance 100 680 Intake, Oral 100 680 Impression/Plan Impression/Plan Impression/Plan: Physical Exam General Appearance Alert, Oriented X3, Cooperative, No Acute Distress Skin No Significant Lesion HEENT Atraumatic, PERRLA, EOMI, Mucous Membr. moist/pink Neck Supple, No JVD, no cervical lymphadenopathy Cardiovascular ireegularly irregular. not tachy Lungs Diffusely rhoncherous, particularly in R. lobes. Had some chrackles nad wheezes as well Abdomen tomás tenderness with deep palpation in RUQ. 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, recurrent exacerbation on prednisone, Bronchiectasis due to recurrent infections, dietary noncompliance, ESRD, mild bilateral bronchiectasis, morbid obesity with obstructive sleep apnea , hypertension, previous hyperkalemia, cor pulmonale, on CPAP at home, previous hepatic disease with splenomegaly, moderate to severe pulmonary hypertension, myelodysplastic process, now comes in with Fever whitish sputum and fatigue with rapid afib with prob recurrent pseudomonas infection with exacerbation of broncheictasis infection Recent PET scan with significant abnormality. with activity in the colon with anemia needs endoscopy Mediastinal lymphadenopathy chronic and no pet activity He also seemed to have a new cervical lymphadenopathy which was PET positive. This needs to be investigated pt to follow with ENT He does have myelodysplasia and he seems to have increasing splenomegaly and he is followed by oncology He has had ischemic heart disease and this has been stable recent angiogram was unrevealing per patient, and now with newonset afib Sig copd with mild bronchiectasis with chronic pseudomonas and s. maltophilia SIg thoracic aneurysm saccular in nature with no worsening of his aneurysm or any dissection by recent ct Obstructive sleep apnea on CPAP compliant Chronic steroid use, hence immunosuppressed Morbid obesity with noncompliance Previous history of biliary sepsis obstruction no no evidence suggestive of that with previous stent with pneumobilia RECOMMENDATION Ceftaz daily and depending on cultures will switch his abx Prednisone 40 daily and taper in 8 days Afib mgt and anticoag plan per cardio ENT evaluation as out pt CT scan of the chest to evaluate subtle abnormalities he has in 3 months Continue oxygen continue all other medications
[2017-01-27 15:51] VITALS: BP 140/60
[2017-01-27 22:29] VITALS: BP 138/68
[2017-01-28 08:11] VITALS: BP 124/64
--- NOTE | 2017-01-28 08:23 | PN- Housestaff ---
Subjective Follow-up For: Atrial fibrillation with RVR Acute on chronic hypoxic respiratory failure ESRD on on dialysis Tele-Events Since Last Visit: Atrial fibrillation, atrial flutter, heartrate 87-100. Patient heartrate was controlled until this a.m. when it started to be above 100. Subjective: Afebrile, is 140s/70s, heart rate running above 100, and patient saturating well on 3 L of oxygen. Patient was seen after he came back from hemodialysis. He reported improvement on his shortness breath. He denies any current active complaints. Review of Systems Constitutional: Reports: no symptoms. Objective Last 24 Hrs of Vital Signs/I&O Vital Signs Date Time Temp Pulse Resp B/P B/P Pulse O2 O2 Flow FiO2 Mean Ox Delivery Rate 01/28 1432 127 142/70 01/28 1427 126 24 142/70 95 Nasal 3.0L Cannula 01/28 0811 97.3 105 20 124/64 99 Nasal 3.0L Cannula 01/28 0800 94 Nasal 3.0L Cannula 01/28 0559 98 Nasal 3.0L Cannula 01/28 0000 Nasal 3.0L Cannula 01/27 2229 97.3 105 22 138/68 97 Nasal 3.0L Cannula 01/27 2126 104 138/68 01/27 1551 97.6 87 18 140/60 97 01/27 1531 98 Nasal 2.0L Cannula Intake & Output 01/28 1600 01/28 0800 01/28 0000 Intake Total 400 240 610 Output Total Balance 400 240 610 Intake, IV 250 Intake, Oral 400 240 360 Number 0 Bowel Movements Patient 75.41 kg 75.977 kg Weight Weight Chair scale Chair scale Measurement Method Physical Exam General Appearance: Alert, Oriented X3, Cooperative, No Acute Distress HEENT: Atraumatic, PERRLA, EOMI, Mucous Membr. moist/pink Cardiovascular: Normal S1, Normal S2, No Murmurs, afib Lungs: Clear to Auscultation, Normal Air Movement Abdomen: Normal Bowel Sounds, Soft, No Tenderness Neurological: Normal Speech Extremities: No Cyanosis, No Edema Assessment/Plan Assessment: 71-year-old man with past medical history significant for chronic COPD, oxygen dependent 2 L at baseline, septic sleep apnea, coronary artery disease status post right RCA stenting 10 years ago, pulmonary hypertension, descending thoracic artery aneurysm, end-stage renal disease on dialysis Saturday and Saturday came to emergency department with shortness of breath and dyspnea on exertion which has been going on for the last 3-4 days. Patient went to his dialysis today and was told to go to emergency department. Patient also has increased phlegm for the last 4 days along with more shortness of breath and requiring 3 L than 2 L at baseline. Atrial fibrillation with RVR with h/o CHF Most likely 2/2 possible CHF ( High BNP ) vs ACS (Negative Troponins and No ST changes on EKG) VS vs ? Hyperthyroidism. Current [id number] score 4, Stroke risk was 4.8% per year. Patient is currently not on any anticoagulation as per discussion with credit controller. Got IV cardizem push and IV metoprolol on admission. * We will increase metoprolol to 62.5 mg twice a day * Follow echo to rule out possibility of thrombus, last echo showed EF of 45% in December. Patient has history of previous heart failure with preserved left ventricular systolic function Acute on chronic hypoxic respiratory failure 2/2 COPD exacerbation Patient has increased sputum production with change in the color of sputum. Patient remained afebrile overnight. Chest x-ray showed right basilar opacity which is not a significant change from the previous imaging. Sputum culture grows Pseudomonas that sensitive to ciprofloxacin * DC azithromycin and ceftaz addendum and start ciprofloxacin * Continue Prednisone 40mg PO daily * Continue CPAP for obstructive sleep apnea Chronic kidney disease on dialysis * Came from dialysis earlier today * Continue with Epogen SQ heparin for DVT prophylaxis renal dialysis diet full code Problem List: 1. ARF Pain Ratin Pain Location: NA Pain Goal: Remain pain free Pain Plan: See A&P Tomorrow's Labs & Rationales: CBC and BEP Consulting Request: Consulting Specialty: Cardiology
--- NOTE | 2017-01-28 09:31 | PN- Nephrology ---
Assessment/Plan Assessment: #1 end-stage renal disease. Hemodialysis will commence shortly. Currently, by weights, he is below his dry weight #2 dyspnea. Likely due to COPD exacerbation Suggestion: #1. Hemodialysis today #2 this will be for 195 minutes or 3.25 hours #3. Continue with Epogen Subjective Subjective: Patient still with shortness of breath. He also had wanted the dialyzed earlier. I explained that that can barely with the schedule in terms of other patients needs. Objective Vital Signs and I&Os Vital Signs Date Time Temp Pulse Resp B/P B/P Pulse O2 O2 Flow FiO2 Mean Ox Delivery Rate 01/28 0811 97.3 105 20 124/64 99 Nasal 3.0L Cannula 01/28 0800 94 Nasal 3.0L Cannula 01/28 0559 98 Nasal 3.0L Cannula 01/28 0000 Nasal 3.0L Cannula 01/27 2229 97.3 105 22 138/68 97 Nasal 3.0L Cannula 01/27 2126 104 138/68 01/27 1551 97.6 87 18 140/60 97 01/27 1531 98 Nasal 2.0L Cannula 01/27 0941 105 151/78 Intake & Output 01/28 1600 01/28 0400 01/27 1600 01/27 0400 01/26 1600 01/26 0400 Intake Total 240 610 580 680 600 250 Output Total Balance 240 610 580 680 600 250 Intake, IV 250 10 Intake, Oral 240 360 580 680 600 240 Number 0 Bowel Movements Patient 168 lb 168 lb Weight Weight Chair scale Reported by Patient Measurement Method Physical Exam General Appearance: well developed/nourished, no apparent distress, alert, anxious Head: atraumatic Ears, Nose, Throat: hearing grossly normal Neck: normal inspection, supple Respiratory: chest non-tender, wheezing Cardiovascular: regular rate/rhythm Peripheral Pulses: 3+ popliteal (R), 3+ popliteal (L), 3+ tibialis posterior (R), 3+ tibialis posterior (L), 3+ dorsalis pedis (R), 3+ dorsalis pedis (L) Abdomen: normal bowel sounds, soft Back: normal inspection, normal range of motion Extremities: normal inspection, no edema Neurologic/Psychiatric: no motor/sensory deficits, awake, alert, oriented x 3 Skin: intact Current Medications: Current Medications Sig/Zoe Start time Last Medication Dose Route Stop Time Status Admin Acetaminophen 650 MG Q6 PRN 01/25 2115 AC PO Albuterol Sulfate 3 ML EVERY 4 HRS/AWAKE 01/26 0800 AC 01/28 INH 0557 Albuterol Sulfate 3 ML Q4P PRN 01/25 213 AC INH Albuterol Sulfate 2 PUF DAILY 01/25 2121 AC 01/27 INH 0940 Aspirin Buffered 81 MG DAILY 01/25 2300 AC 01/27 PO 0940 Atorvastatin Calcium 40 MG 1700 01/26 1700 AC 01/27 PO 1717 Azithromycin 500 MG 1700 01/26 1700 AC 01/27 Sodium Chloride 250 ML IV 1717 Budesonide/ 2 PUF BID 01/25 2200 AC 01/28 Formoterol Fumarate INH 0831 Calcium Acetate 2,001 MG WM 01/26 1700 AC 01/27 PO 1225 Ceftazidime 1,000 MG DAILY 01/26 1125 AC 01/27 IV 0939 Docusate Sodium 100 MG BID 01/26 2200 AC 01/27 PO 2126 Heparin Sodium 5,000 UNIT Q8 01/26 0100 AC 01/27 (Porcine) SC 2127 Ipratropium [place] 2.5 ML EVERY 4 HRS/AWAKE 01/26 0800 AC 01/28 INH 0557 Metoprolol Tartrate 50 MG BID 01/25 2300 AC 01/27 PO 2126 Morphine Sulfate 0.5 MG Q8P PRN 01/25 2130 AC IV Multivitamins 1 TAB DAILY 01/25 2300 AC 01/27 PO 0940 Omeprazole 40 MG DAILY AC 01/26 0700 AC 01/28 PO 0554 Oxycodone HCl 5 MG Q6 PRN 01/25 2115 AC 01/27 PO 2314 Oxycodone/ 1 TAB ONCE ONE 01/27 2215 DC 01/27 Acetaminophen PO 01/27 221 2223 Polyethylene Glycol 17 GM AT BEDTIME 01/25 2200 AC 01/27 PO 2127 Prednisone 40 MG DAILY 01/27 1000 AC 01/27 PO 0942 Roflumilast 500 MCG DAILY 01/26 1000 AC 01/27 PO 0941 Senna/Docusate Sodium 1 TAB AT BEDTIME 01/25 2200 AC 01/25 PO 2334 Tiotropium [place] 1 PUF DAILY 01/26 1000 AC 01/28 INH 0831 Results Pertinent Lab Results: Laboratory Tests 01/26 01/26 01/25 0600 0445 2210 Chemistry Troponin I (<0.11 ng/ml) 0.06 0.08 Coagulation PT (9.4 - 12.5 SEC) 14.3 H INR (0.90 - 1.17) 1.37 H Hematology CBC w Diff NO MAN DIFF REQ WBC (4.8 - 10.8 /CUMM) 4.9 RBC (4.70 - 6.10 /CUMM) 3.71 L Hgb (14.0 - 18.0 G/DL) 9.9 L Hct (42 - 52 %) 31.9 L MCV (80.0 - 94.0 FL) 85.9 MCH (27.0 - 31.0 PG) 26.6 L RDW (11.5 - 14.5 %) 17.5 H Plt Count (130 - 400 /CUMM) 169 MPV (7.4 - 10.4 FL) 10.4 Gran % (42.2 - 75.2 %) 89.9 H Lymphocytes % (20.5 - 51.1 %) 8.7 L Monocytes % (1.7 - 9.3 %) 1.2 L Eosinophils % (0 - 5 %) 0 Basophils % (0.0 - 2.0 %) 0.2 Absolute Granulocytes (1.4 - 6.5 /CUMM) 4.4 Absolute Lymphocytes (1.2 - 3.4 /CUMM) 0.4 L Absolute Monocytes (0.10 - 0.60 /CUMM) 0.1 L Absolute Eosinophils (0.0 - 0.7 /CUMM) 0 Absolute Basophils (0.0 - 0.2 /CUMM) 0 PUBS MCHC (33.0 - 37.0 G/DL) 31.0 L Urines Urine Color Cancelled Urine Clarity Cancelled Urine pH Cancelled Ur Specific [place] Cancelled Urine Protein Cancelled Urine Ketones Cancelled Urine Nitrite Cancelled Urine Bilirubin Cancelled Urine Urobilinogen Cancelled Ur Leukocyte Esterase Cancelled Ur Microscopic Cancelled Urine Hemoglobin Cancelled Urine Glucose Cancelled 01/25 01/25 1855 1600 Chemistry Sodium (137 - 145 mmol/L) 135 L Potassium (3.5 - 5.1 mmol/L) 4.3 Chloride (98 - 107 mmol/L) 93 L Carbon Dioxide (22 - 30 mmol/L) 28 Anion Gap (5 - 16) 14 BUN (9 - 20 mg/dL) 30 H Creatinine (0.7 - 1.2 mg/dL) 4.1 H Estimated GFR (>60 ml/min) 14 L BUN/Creatinine Ratio (7 - 25 %) 7.3 Glucose (65 - 99 mg/dL) 86 Lactic Acid (0.7 - 2.1 mmol/L) Cancelled 1.3 Calcium (8.4 - 10.2 mg/dL) 8.5 Magnesium (1.6 - 2.3 mg/dL) 1.7 Total Bilirubin (0.2 - 1.3 mg/dL) 0.8 AST (17 - 59 U/L) 23 ALT (21 - 72 U/L) 39 Alkaline Phosphatase (< 127 U/L) 120 Troponin I (<0.11 ng/ml) 0.06 [id number] Pept (<125 pg/mL) 09036 H Total Protein (6.3 - 8.2 g/dL) 6.7 Albumin (3.5 - 5.0 g/dL) 3.6 Globulin (1.9 - 4.2 gm/dL) 3.1 Albumin/Globulin Ratio (1.1 - 2.2 %) 1.2 TSH (0.270 - 4.200 uIU/mL) 1.120 Free T4 (0.78 - 2.44 ng/dL) 1.51 Coagulation PT (9.4 - 12.5 SEC) 15.7 H INR (0.90 - 1.17) 1.50 H APTT (25 - 37 SEC) 34 Hematology CBC w Diff NO MAN DIFF REQ WBC (4.8 - 10.8 /CUMM) 8.2 RBC (4.70 - 6.10 /CUMM) 3.92 L Hgb (14.0 - 18.0 G/DL) 10.4 L Hct (42 - 52 %) 33.8 L MCV (80.0 - 94.0 FL) 86.2 MCH (27.0 - 31.0 PG) 26.6 L RDW (11.5 - 14.5 %) 17.5 H Plt Count (130 - 400 /CUMM) 207 MPV (7.4 - 10.4 FL) 9.9 Gran % (42.2 - 75.2 %) 85.1 H Lymphocytes % (20.5 - 51.1 %) 6.2 L Monocytes % (1.7 - 9.3 %) 8.0 Eosinophils % (0 - 5 %) 0.3 Basophils % (0.0 - 2.0 %) 0.4 Absolute Granulocytes (1.4 - 6.5 /CUMM) 7.0 H Absolute Lymphocytes (1.2 - 3.4 /CUMM) 0.5 L Absolute Monocytes (0.10 - 0.60 /CUMM) 0.7 H Absolute Eosinophils (0.0 - 0.7 /CUMM) 0 Absolute Basophils (0.0 - 0.2 /CUMM) 0 PUBS MCHC (33.0 - 37.0 G/DL) 30.9 L
--- NOTE | 2017-01-28 11:11 | PN- Pulmonary ---
See Addendum Subjective HPI/Critical Care Issues: Patient still with shortness of breath. IN dialysis Objective Current Medications: Current Medications Sig/Zoe Start time Last Medication Dose Route Stop Time Status Admin Acetaminophen 650 MG Q6 PRN 01/25 2115 AC PO Albuterol Sulfate 3 ML EVERY 4 HRS/AWAKE 01/26 0800 AC 01/28 INH 0557 Albuterol Sulfate 3 ML Q4P PRN 01/25 2130 AC INH Albuterol Sulfate 2 PUF DAILY 01/25 212 AC 01/27 INH 0940 Aspirin Buffered 81 MG DAILY 01/25 2300 AC 01/27 PO 0940 Atorvastatin Calcium 40 MG 1700 01/26 1700 AC 01/27 PO 1717 Azithromycin 500 MG 1700 01/26 170 DC 01/27 Sodium Chloride 250 ML IV 1717 Budesonide/ 2 PUF BID 01/25 220 AC 01/28 Formoterol Fumarate INH 0831 Calcium Acetate 2,001 MG WM 01/26 1700 AC 01/27 PO 1225 Ceftazidime 1,000 MG DAILY 01/26 1125 AC 01/27 IV 0939 Docusate Sodium 100 MG BID 01/26 2200 AC 01/27 PO 2126 Epoetin [place] 3,000 UNIT MoWeFr PRN 01/28 1000 AC IV Epoetin [place] 8,000 UNIT MoWeFr PRN 01/28 0945 AC IV Heparin Sodium 5,000 UNIT Q8 01/26 0100 AC 01/27 (Porcine) SC 2127 Ipratropium [place] 2.5 ML EVERY 4 HRS/AWAKE 01/26 0800 AC 01/28 INH 0557 Metoprolol Tartrate 62.5 MG BID 01/28 2200 UNVr PO Metoprolol Tartrate 50 MG BID 01/25 2300 DC 01/27 PO 2126 Morphine Sulfate 0.5 MG Q8P PRN 01/25 213 AC IV Multivitamins 1 TAB DAILY 01/25 2300 AC 01/27 PO 0940 Omeprazole 40 MG DAILY AC 01/26 0700 AC 01/28 PO 0554 Oxycodone HCl 5 MG Q6 PRN 01/25 211 AC 01/27 PO 2314 Oxycodone/ 1 TAB ONCE ONE 01/275 DC 01/27 Acetaminophen PO 01/28 2216 222 Paricalcitol 5 MCG MoWeFr PRN 01/28 1000 AC IV Polyethylene Glycol 17 GM AT BEDTIME 01/25 2200 AC 01/27 PO 2127 Prednisone 40 MG DAILY 01/27 1000 AC 01/27 PO 0942 Roflumilast 500 MCG DAILY 01/26 1000 AC 01/27 PO 0941 Senna/Docusate Sodium 1 TAB AT BEDTIME 01/25 2200 AC 01/25 PO 2334 Tiotropium [place] 1 PUF DAILY 01/26 1000 AC 01/28 INH 0831 Vital Signs & I&O Last 24 Hrs of Vitals and I&O: Vital Signs Date Time Temp Pulse Resp B/P B/P Pulse O2 O2 Flow FiO2 Mean Ox Delivery Rate 01/28 0811 97.3 105 20 124/64 99 Nasal 3.0L Cannula 01/28 0800 94 Nasal 3.0L Cannula 01/28 0559 98 Nasal 3.0L Cannula 01/28 0000 Nasal 3.0L Cannula 01/27 2229 97.3 105 22 138/68 97 Nasal 3.0L Cannula 01/27 2126 104 138/68 01/27 1551 97.6 87 18 140/60 97 01/27 1531 98 Nasal 2.0L Cannula Intake & Output 01/28 1600 01/28 0800 01/28 0000 Intake Total 240 610 Output Total Balance 240 610 Intake, IV 250 Intake, Oral 240 360 Number 0 Bowel Movements Patient 168 lb Weight Weight Chair scale Measurement Method Impression/Plan Impression/Plan Impression/Plan: Physical Exam General Appearance Alert, Oriented X3, Cooperative, No Acute Distress Skin No Significant Lesion HEENT Atraumatic, PERRLA, EOMI, Mucous Membr. moist/pink Neck Supple, No JVD, no cervical lymphadenopathy Cardiovascular ireegularly irregular. not tachy Lungs Diffusely rhoncherous, particularly in R. lobes. Had some chrackles nad wheezes as well Abdomen tomás tenderness with deep palpation in RUQ. 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, recurrent exacerbation on prednisone, Bronchiectasis due to recurrent infections, dietary noncompliance, ESRD, mild bilateral bronchiectasis, morbid obesity with obstructive sleep apnea , hypertension, previous hyperkalemia, cor pulmonale, on CPAP at home, previous hepatic disease with splenomegaly, moderate to severe pulmonary hypertension, myelodysplastic process, now comes in with * Fever whitish sputum and fatigue with rapid afib with prob recurrent pseudomonas infection with exacerbation of broncheictasis infection * Afib with rapid rate before now rate controlled, and pt not a great candidate for anticoag * Recent PET scan with significant abnormality. with activity in the colon with anemia needs endoscopy * Mediastinal lymphadenopathy chronic and no pet activity * He also seemed to have a new cervical lymphadenopathy which was PET positive. This needs to be investigated pt to follow with ENT * He does have myelodysplasia and he seems to have increasing splenomegaly and he is followed by oncology * He has had ischemic heart disease and this has been stable recent angiogram was unrevealing per patient, and now with newonset afib * Sig copd with mild bronchiectasis with chronic pseudomonas and s. maltophilia * SIg thoracic aneurysm saccular in nature with no worsening of his aneurysm or any dissection by recent ct * Obstructive sleep apnea on CPAP compliant * Chronic steroid use, hence immunosuppressed * Morbid obesity with noncompliance with diet before now stable, HTN, ESRD on dialysis * Previous history of biliary sepsis obstruction no no evidence suggestive of that with previous stent with pneumobilia RECOMMENDATION Ceftaz daily and depending on cultures will switch his abx Prednisone 40 daily and taper in 8 days Afib mgt and anticoag plan per cardio ENT evaluation as out pt CT scan of the chest to evaluate subtle abnormalities he has in 3 months Continue oxygen continue all other medications
[2017-01-28 11:12] LABS: ABSOLUTE BASOPHIL COUNT 0 /CUMM (0.0-0.2); ABSOLUTE EOSINOPHIL COUNT 0 /CUMM (0.0-0.7); ABSOLUTE GRANULOCYTE CT 10.1 /CUMM (1.4-6.5); ABSOLUTE LYMPH COUNT 0.5 /CUMM (1.2-3.4); ABSOLUTE MONOCYTE COUNT 0.5 /CUMM (0.10-0.60); BASOPHIL % 0.1 % (0.0-2.0); EOSINOPHIL % 0.1 % (0-5); GRANULOCYTE % 90.1 % (42.2-75.2); HEMATOCRIT 31.9 % (42-52); MEAN CORPUSCULAR HGB 26.6 PG (27.0-31.0); MEAN CORPUSCULAR VOLUME 85.8 FL (80.0-94.0); MEAN PLATELET VOLUME 10.5 FL (7.4-10.4); PLATELET COUNT 187 /CUMM (130-400); RBC DISTRIBUTION WIDTH 17.5 % (11.5-14.5); RED BLOOD CELL CT 3.72 /CUMM (4.70-6.10)
[2017-01-28 11:17] LABS: WHITE BLOOD CELL COUNT 11.2 /CUMM (4.8-10.8)
--- NOTE | 2017-01-28 13:55 | PN- Cardiology ---
Subjective Subjective: The patient remains stable but continues to note fatigue, weakness, lack of appetite, and dyspnea. No other new cardiac symptoms noted. Remains in atrial fibrillation with reasonable rate control. The patient is currently in dialysis Objective Vital Signs and I&Os Vital Signs Date Time Temp Pulse Resp B/P B/P Pulse O2 O2 Flow FiO2 Mean Ox Delivery Rate 01/28 811 97.3 105 20 124/64 99 Nasal 3.0L Cannula 01/28 0800 94 Nasal 3.0L Cannula 01/28 0559 98 Nasal 3.0L Cannula 01/28 0000 Nasal 3.0L Cannula 01/279 97.3 105 22 138/68 97 Nasal 3.0L Cannula 01/27 2126 104 138/68 01/27 1551 97.6 87 18 140/60 97 01/27 1531 98 Nasal 2.0L Cannula Intake & Output 01/28 1600 01/28 0800 01/28 0000 01/27 1600 01/27 0800 01/27 0000 Intake Total 240 610 480 100 680 Output Total Balance 240 610 480 100 680 Intake, IV 250 Intake, Oral 240 360 480 100 680 Number 0 Bowel Movements Patient 168 lb 168 lb Weight Weight Chair scale Measurement Method Current Medications: Current Medications Sig/Zoe Start time Last Medication Dose Route Stop Time Status Admin Acetaminophen 650 MG Q6 PRN 01/25 2115 AC PO Albuterol Sulfate 3 ML EVERY 4 HRS/AWAKE 01/26 08 AC 01/28 INH 0557 Albuterol Sulfate 3 ML Q4P PRN 01/25 2130 AC INH Albuterol Sulfate 2 PUF DAILY 01/25 2121 AC 01/27 INH 0940 Aspirin Buffered 81 MG DAILY 01/25 2300 AC 01/27 PO 0940 Atorvastatin Calcium 40 MG 1700 01/26 1700 AC 01/27 PO 1717 Azithromycin 500 MG 1700 01/26 1700 DC 01/27 Sodium Chloride 250 ML IV 1717 Budesonide/ 2 PUF BID 01/25 2200 AC 01/28 Formoterol Fumarate INH 0831 Calcium Acetate 2,001 MG WM 01/26 170 AC 01/27 PO 1225 Ceftazidime 1,000 MG DAILY 01/26 1125 DC 01/27 IV 0939 Ciprofloxacin 500 MG DAILY 01/28 1122 AC PO 02/01 1121 Docusate Sodium 100 MG BID 01/26 2200 AC 01/27 PO 2126 Epoetin [place] 3,000 UNIT MoWeFr PRN 01/28 1000 AC IV Epoetin [place] 8,000 UNIT MoWeFr PRN 01/28 0945 AC IV Heparin Sodium 5,000 UNIT Q8 01/26 0100 AC 01/27 (Porcine) SC 2127 Ipratropium [place] 2.5 ML EVERY 4 HRS/AWAKE 01/26 0800 AC 01/28 INH 0557 Metoprolol Tartrate 62.5 MG BID 01/28 2200 DC PO Metoprolol Tartrate 62.5 MG BID 01/28 1300 AC PO Metoprolol Tartrate 50 MG BID 01/25 2300 DC 01/27 PO 2126 Morphine Sulfate 0.5 MG Q8P PRN 01/25 2130 AC IV Multivitamins 1 TAB DAILY 01/25 2300 AC 01/27 PO 0940 Omeprazole 40 MG DAILY AC 01/26 0700 AC 01/28 PO 0554 Oxycodone HCl 5 MG Q6 PRN 01/25 2115 AC 01/27 PO 2314 Oxycodone/ 1 TAB ONCE ONE 01/27 2215 DC 01/27 Acetaminophen PO 01/27 221 2223 Paricalcitol 5 MCG MoWeFr PRN 01/28 1000 AC IV Polyethylene Glycol 17 GM AT BEDTIME 01/25 2200 AC 01/27 PO 2127 Prednisone 40 MG DAILY 01/27 1000 AC 01/27 PO 0942 Roflumilast 500 MCG DAILY 01/26 1000 AC 01/27 PO 0941 Senna/Docusate Sodium 1 TAB AT BEDTIME 01/25 2200 AC 01/25 PO 2334 Tiotropium [place] 1 PUF DAILY 01/26 1000 AC 01/28 INH 0831 Results Last 48 Hrs of Labs/Mics: Laboratory Tests 01/28/17 1028: Anion Gap 19 H, Estimated GFR 6 L, BUN/Creatinine Ratio 11.7, Magnesium 2.4 H , CBC w Diff MAN DIFF ORDERED, RBC 3.72 L, MCV 85.8, MCH 26.6 L, RDW 17.5 H, MPV 10.5 H, Gran % 90.1 H, Lymphocytes % 4.8 L, Monocytes % 4.9, Eosinophils % 0.1, Basophils % 0.1, Absolute Granulocytes 10.1 H, Segmented Neutrophils 90 H, Band Neutrophils 4, Absolute Lymphocytes 0.5 L, Lymphocytes 4 L, Monocytes 2, Absolute Monocytes 0.5, Absolute Eosinophils 0, Absolute Basophils 0, Platelet Estimate VERIFIED BY SMEAR, Anisocytosis 1+, PUBS MCHC 31.0 L Assessment/Plan Assessment/Plan Assessment: 1. Probable right lower lobe pneumonia 2. Atrial for ablation with initially elevated rate, now rate controlled 3. History of coronary disease 4. Hypertension 5. End-stage renal disease on hemodialysis Recommendations: -For now, since the patient's rate appears to be controlled, I will continue his regular medication doses with close monitoring of his rhythm and rate. -Serial troponins negative -Nephrology input noted -Continue as per the internal medicine and pulmonary teams -Continue regular medications for now -Further discussions about the role of long-term anticoagulation to be addressed. For now, in view of the patient's upcoming colonoscopy, etc. I would not anticoagulate at the moment.
[2017-01-28 14:27] VITALS: BP 142/70
--- NOTE | 2017-01-28 14:38 | PN- Att Addend ---
Attending MD Review Statement Attending Statement Attending MD Statement: examined this patient, discuss w/resident/PA/[employer], agreed w/resident/PA/[employer]LE [employer], reviewed EMR data (avail), discussed w/nursing Attending Assessment/Plan: Laboratory Tests 01/28/17 1028: Anion Gap 19 H, Estimated GFR 6 L, BUN/Creatinine Ratio 11.7, Magnesium 2.4 H , CBC w Diff MAN DIFF ORDERED, RBC 3.72 L, MCV 85.8, MCH 26.6 L, RDW 17.5 H, MPV 10.5 H, Gran % 90.1 H, Lymphocytes % 4.8 L, Monocytes % 4.9, Eosinophils % 0.1, Basophils % 0.1, Absolute Granulocytes 10.1 H, Segmented Neutrophils 90 H, Band Neutrophils 4, Absolute Lymphocytes 0.5 L, Lymphocytes 4 L, Monocytes 2, Absolute Monocytes 0.5, Absolute Eosinophils 0, Absolute Basophils 0, Platelet Estimate VERIFIED BY SMEAR, Anisocytosis 1+, PUBS MCHC 31.0 L Vital Signs Date Time Temp Pulse Resp B/P B/P Pulse O2 O2 Flow FiO2 Mean Ox Delivery Rate 01/28 1427 126 24 142/70 95 Nasal 3.0L Cannula 01/28 0811 97.3 105 20 124/64 99 Nasal 3.0L Cannula 01/28 0800 94 Nasal 3.0L Cannula 01/28 0559 98 Nasal 3.0L Cannula 01/28 0000 Nasal 3.0L Cannula 01/27 2229 97.3 105 22 138/68 97 Nasal 3.0L Cannula 01/27 2126 104 138/68 01/27 1551 97.6 87 18 140/60 97 01/27 1531 98 Nasal 2.0L Cannula Patient seen and examined at bedside. Discussed with patient the care plan. Patient's telemetry is showing heart rate ranging from 100 to 115 in atrial fibrillation. Pneumonia- Gram negative- Patient on exam has bilateral mild wheezing. Patient states his shortness of breath is not getting much better . Continue patient currently on ceftazidime and azithromycin for his pneumonia as per pulmonary recommendation. His respiratory culture came back for Pseudomonas which is sensitive to ceftazidime. We will DC his Zithromax. We will discuss with cdl instructor today to see if he will benefit from increasing his dose of steroids. Atrial fibrillation with RVR-we have increased his metoprolol to 62.5 mg twice a day. Discussed with cardiology the care plan.
[2017-01-28 15:54] VITALS: BP 124/58
[2017-01-28 22:28] VITALS: BP 124/70
[2017-01-29 07:56] LABS: ABSOLUTE BASOPHIL COUNT 0 /CUMM (0.0-0.2); ABSOLUTE EOSINOPHIL COUNT 0 /CUMM (0.0-0.7); ABSOLUTE GRANULOCYTE CT 8.7 /CUMM (1.4-6.5); ABSOLUTE LYMPH COUNT 0.6 /CUMM (1.2-3.4); ABSOLUTE MONOCYTE COUNT 0.5 /CUMM (0.10-0.60); BASOPHIL % 0 % (0.0-2.0); EOSINOPHIL % 0 % (0-5); HEMATOCRIT 34.6 % (42-52); MEAN CORPUSCULAR HGB 26.5 PG (27.0-31.0); MEAN CORPUSCULAR HGB CONC 30.7 G/DL (33.0-37.0); MEAN CORPUSCULAR VOLUME 86.3 FL (80.0-94.0); MEAN PLATELET VOLUME 10.3 FL (7.4-10.4); PLATELET COUNT 187 /CUMM (130-400); RBC DISTRIBUTION WIDTH 17.6 % (11.5-14.5); RED BLOOD CELL CT 4.01 /CUMM (4.70-6.10); WHITE BLOOD CELL COUNT 9.8 /CUMM (4.8-10.8)
--- NOTE | 2017-01-29 07:56 | PN- Housestaff ---
JASON MONTES,LETI 01/29/17 0755: Subjective Follow-up For: pna Subjective: Seen and exmined at bedside. Still complaints of shortness of breath when standing up. VS wnl. No acute o/n event or telemetry event. Review of Systems Constitutional: Reports: no symptoms. Objective Last 24 Hrs of Vital Signs/I&O Vital Signs Date Time Temp Pulse Resp B/P B/P Pulse O2 O2 Flow FiO2 Mean Ox Delivery Rate 01/30 0000 Non 3.0L ReBreather 01/29 2300 98.0 120 20 134/72 96 Nasal 1.0L Cannula 01/29 2107 120 134/85 01/29 1640 97 Nasal 3.0L Cannula 01/29 1530 97.5 118 16 118/78 95 Nasal 3.0L Cannula 01/29 1256 Nasal 3.0L Cannula 01/29 1147 95 Nasal 3.0L Cannula 01/29 0935 110 140/76 01/29 0800 Nasal 3.0L Cannula 01/29 0800 98.4 128 20 140/70 94 Nasal 3.0L Cannula Intake & Output 01/30 0800 01/30 0000 01/29 1600 Intake Total 120 120 500 Output Total 0 Balance 120 120 500 Intake, Oral 120 120 500 Output, Urine 0 Patient 76.317 kg Weight Weight Chair scale Measurement Method Physical Exam General Appearance: Alert, Oriented X3, Cooperative Cardiovascular: Regular Rate, Normal S1, Normal S2 Lungs: Clear to Auscultation, Normal Air Movement Abdomen: Soft, No Tenderness Neurological: Normal Gait, Normal Speech, Strength at 5/5 X4 Ext, Normal Tone Assessment/Plan Assessment: 71-year-old man with past medical history significant for chronic COPD, oxygen dependent 2 L at baseline, septic sleep apnea, coronary artery disease status post right RCA stenting 10 years ago, pulmonary hypertension, descending thoracic artery aneurysm, end-stage renal disease on dialysis Saturday and Saturday came to emergency department with shortness of breath and dyspnea on exertion which has been going on for the last 3-4 days. Patient went to his dialysis today and was told to go to emergency department. Patient also has increased phlegm for the last 4 days along with more shortness of breath and requiring 3 L than 2 L at baseline. Atrial fibrillation with RVR with h/o CHF Most likely 2/2 possible CHF ( High BNP ) vs ACS (Negative Troponins and No ST changes on EKG) VS vs ? Hyperthyroidism. Current [id number] score 4, Stroke risk was 4.8% per year. 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 Got IV cardizem push and IV metoprolol on admission. * We will continue metoprolol to 62.5 mg twice a day * Follow echo to rule out possibility of thrombus, last echo showed EF of 45% in December. Patient has history of previous heart failure with preserved left ventricular systolic function Acute on chronic hypoxic respiratory failure 2/2 COPD exacerbation Patient remained afebrile overnight. Chest x-ray showed right basilar opacity which is not a significant change from the previous imaging. Sputum culture grows Pseudomonas that sensitive to ciprofloxacin. * DC azithromycin and ceftaz addendum and started ciprofloxacin (day 3) * Switch to Prednisone 30 mg * Continue CPAP for obstructive sleep apnea Chronic kidney disease on dialysis * Came from dialysis earlier today * Continue with Epogen SQ heparin for DVT prophylaxis renal dialysis diet full code Problem List: 1. Atrial fibrillation 2. COPD exacerbation Pain Ratin Pain Location: none Pain Goal: Remain pain free Pain Plan: per pain pathway Tomorrow's Labs & Rationales: BEP Consulting Request: Consulting Specialty: Cardiology YOHANA MONTES,[facility] 01/29/17 1259: Attending MD Review Statement Attending Statement Attending MD Statement: examined this patient, discuss w/resident/PA/ADDICTIONS COUNSELOR ASSISTANT, agreed w/resident/PA/ADDICTIONS COUNSELOR ASSISTANT, discussed with family, reviewed EMR data (avail), discussed with nursing, discussed with case mgmt, reviewed images, amended to note Attending Assessment/Plan: Patient seen and examined, still feels very short of breath. He tried to work with physical therapy this morning but going from bed to chair made him very short of breath. His oxygen saturation is 95% on 3 L. Vital Signs Date Time Temp Pulse Resp B/P B/P Pulse O2 O2 Flow FiO2 Mean Ox Delivery Rate 01/29 1147 95 Nasal 3.0L Cannula 01/29 0935 110 140/76 01/29 0800 Nasal 3.0L Cannula 01/29 08 98.4 128 20 140/70 94 Nasal 3.0L Cannula 01/29 0717 98 Nasal 3.0L Cannula 01/29 0000 CPAP 01/29 2228 97.9 96 22 124/70 100 Nasal Cannula 01/288 99 01/28 1715 97 Nasal 3.0L Cannula 01/28 1600 95 Nasal 3.0L Cannula 01/28 1554 97.8 129 24 124/58 95 Nasal 3.0L Cannula 01/28 1432 127 142/70 01/28 1427 126 24 142 95 Nasal 3.0L Cannula on exam; aox3, nad. cv; s1, s2, rrr resp; clear abd; soft, nt, bs+ ext; trace edema. Laboratory Tests 01/29 06 Chemistry Sodium (137 - 145 mmol/L) 137 Potassium (3.5 - 5.1 mmol/L) 5.4 H Chloride (98 - 107 mmol/L) 97 L Carbon Dioxide (22 - 30 mmol/L) 24 Anion Gap (5 - 16) 16 BUN (9 - 20 mg/dL) 55 H Creatinine (0.7 - 1.2 mg/dL) 5.0 H Estimated GFR (>60 ml/min) 11 L BUN/Creatinine Ratio (7 - 25 %) 11.0 Hematology CBC w Diff NO MAN DIFF REQ WBC (4.8 - 10.8 /CUMM) 9.8 RBC (4.70 - 6.10 /CUMM) 4.01 L Hgb (14.0 - 18.0 G/DL) 10.6 L Hct (42 - 52 %) 34.6 L MCV (80.0 - 94.0 FL) 86.3 MCH (27.0 - 31.0 PG) 26.5 L RDW (11.5 - 14.5 %) 17.6 H Plt Count (130 - 400 /CUMM) 187 MPV (7.4 - 10.4 FL) 10.3 Gran % (42.2 - 75.2 %) 88.7 H Lymphocytes % (20.5 - 51.1 %) 6.4 L Monocytes % (1.7 - 9.3 %) 4.9 Eosinophils % (0 - 5 %) 0 Basophils % (0.0 - 2.0 %) 0 L Absolute Granulocytes (1.4 - 6.5 /CUMM) 8.7 H Absolute Lymphocytes (1.2 - 3.4 /CUMM) 0.6 L Absolute Monocytes (0.10 - 0.60 /CUMM) 0.5 Absolute Eosinophils (0.0 - 0.7 /CUMM) 0 Absolute Basophils (0.0 - 0.2 /CUMM) 0 PUBS MCHC (33.0 - 37.0 G/DL) 30.7 L A/P; 71-year-old man with past medical history significant for chronic resp failure, COPD, oxygen dependent 2 L at baseline, sleep apnea, coronary artery disease status post right RCA stenting 10 years ago, pulmonary hypertension, descending thoracic artery aneurysm, end-stage renal disease on dialysis Saturday and Saturday admitted with acute/ chronic resp failure, pseudomonas pneumonia, afib with rvr. Heart rate not relatively well controlled. Patient was initially started on ceftaz which has now been switched to oral Cipro for the treatment of Pseudomonas pneumonia as it is sensitive to Cipro. Patient is also treated with steroids. At this point because of his chronic respiratory failure and COPD on top of that he has pneumonia, his breathing remains an issue. He is due for his dialysis tomorrow. Afterwards will try to have him work with physical therapy again. Today he just could not 2/2 to feeling so sob. He will likely benefit from pulmonary rehabilitation. Continue all current meds, inhalers, TRC nebs. DVT Px; Hep sq. D/W patient's at bedside and Dr. Muñoz. from nephrology.
[2017-01-29 08:00] VITALS: BP 140/70
[2017-01-29 08:48] LABS: GRANULOCYTE % 88.7 % (42.2-75.2)
--- NOTE | 2017-01-29 11:04 | PN- Cardiology ---
Subjective Subjective: The patient continues to complain of significant shortness of breath. He notes fatigue and weakness. No chest pain. No palpitations. No diaphoresis. No nausea or vomiting. He remains in atrial fibrillation with rate under control. Objective Vital Signs and I&Os Vital Signs Date Time Temp Pulse Resp B/P B/P Pulse O2 O2 Flow FiO2 Mean Ox Delivery Rate 01/29 0935 110 140/76 01/29 0800 Nasal 3.0L Cannula 01/29 0800 98.4 128 20 140/70 94 Nasal 3.0L Cannula 01/29 0717 98 Nasal 3.0L Cannula 01/29 0000 CPAP 01/28 2228 97.9 96 22 124/70 100 Nasal Cannula 01/28 2128 99 01/28 1715 97 Nasal 3.0L Cannula 01/28 1600 95 Nasal 3.0L Cannula 01/28 1554 97.8 129 24 124/58 95 Nasal 3.0L Cannula 01/28 1432 127 142/70 01/28 1427 126 24 142/70 95 Nasal 3.0L Cannula Intake & Output 01/29 1600 01/29 0800 01/29 0000 01/28 1600 01/28 0800 01/28 0000 Intake Total 120 320 400 240 610 Output Total Balance 120 320 400 240 610 Intake, IV 250 Intake, Oral 120 320 400 240 360 Number 1 0 Bowel Movements Patient 165 lb 166 lb 168 lb Weight Weight Standing Scale Chair scale Chair scale Measurement Method Physical Exam: Gen: NAD HEENT: normal Lungs: A few short, bilaterally, increased respiratory effort Heart: Irregularly irregular, S1-S2, 2/6 systolic murmur Abdomen: Soft, nontender, no masses Extremities: No clubbing, cyanosis, or edema. Neuro: Alert and oriented x 3, cranial nerves intact Current Medications: Current Medications Sig/Zoe Start time Last Medication Dose Route Stop Time Status Admin Acetaminophen 650 MG Q6 PRN 01/25 2115 AC PO Albuterol Sulfate 3 ML EVERY 4 HRS/AWAKE 01/26 08 AC 01/29 INH 0716 Albuterol Sulfate 3 ML Q4P PRN 01/25 2130 AC INH Albuterol Sulfate 2 PUF DAILY 01/25 2121 AC 01/27 INH 0940 Aspirin Buffered 81 MG DAILY 01/25 2300 AC 01/29 PO 0932 Atorvastatin Calcium 40 MG 1700 01/26 170 AC 01/28 PO 1735 Budesonide/ 2 PUF BID 01/25 2200 AC 01/29 Formoterol Fumarate INH 0941 Calcium Acetate 2,001 MG WM 01/26 1700 AC 01/29 PO 0931 Ceftazidime 1,000 MG DAILY 01/26 1125 DC 01/27 IV 0939 Ciprofloxacin 500 MG DAILY 01/28 1122 AC 01/29 PO 02/01 1121 0931 Docusate Sodium 100 MG BID 01/26 2200 AC 01/29 PO 0932 Epoetin Ryan 3,000 UNIT MoWeFr PRN 01/28 1000 AC 01/28 IV 1400 Epoetin Ryan 8,000 UNIT MoWeFr PRN 01/28 0945 AC 01/28 IV 1400 Glycerin 2 SPRAY Q2P PRN 01/28 1600 AC 01/28 PO 1740 Heparin Sodium 5,000 UNIT Q8 01/26 0100 AC 01/29 (Porcine) SC 0639 Ipratropium [place] 2.5 ML EVERY 4 HRS/AWAKE 01/26 0800 AC 01/29 INH 0716 Metoprolol Tartrate 62.5 MG BID 01/28 2200 DC PO Metoprolol Tartrate 62.5 MG BID 01/28 1300 AC 01/29 PO 0935 Morphine Sulfate 0.5 MG Q8P PRN 01/25 2130 AC IV Multivitamins 1 TAB DAILY 01/25 2300 AC 01/29 PO 0932 Omeprazole 40 MG DAILY AC 01/26 0700 AC 01/29 PO 0639 Oxycodone HCl 5 MG Q6 PRN 01/25 2115 AC 01/29 PO 0757 Paricalcitol 5 MCG MoWeFr PRN 01/28 1000 AC 01/28 IV 1254 Polyethylene Glycol 17 GM AT BEDTIME 01/25 2200 AC 01/27 PO 2127 Prednisone 40 MG DAILY 01/27 1000 AC 01/29 PO 0932 Roflumilast 500 MCG DAILY 01/26 1000 AC 01/29 PO 0935 Senna/Docusate Sodium 1 TAB AT BEDTIME 01/25 2200 AC 01/28 PO 2126 Tiotropium [place] 1 PUF DAILY 01/26 1000 AC 01/29 INH 0936 Results Last 48 Hrs of Labs/Mics: Laboratory Tests 01/29/17 0609: Anion Gap 16, Estimated GFR 11 L, BUN/Creatinine Ratio 11.0, CBC w Diff NO MAN DIFF REQ, RBC 4.01 L, MCV 86.3, MCH 26.5 L, RDW 17.6 H, MPV 10.3, Gran % 88.7 H, Lymphocytes % 6.4 L, Monocytes % 4.9, Eosinophils % 0, Basophils % 0 L, Absolute Granulocytes 8.7 H, Absolute Lymphocytes 0.6 L, Absolute Monocytes 0.5, Absolute Eosinophils 0, Absolute Basophils 0, PUBS MCHC 30.7 L 01/28/17 1028: Anion Gap 19 H, Estimated GFR 6 L, BUN/Creatinine Ratio 11.7, Magnesium 2.4 H , CBC w Diff MAN DIFF ORDERED, RBC 3.72 L, MCV 85.8, MCH 26.6 L, RDW 17.5 H, MPV 10.5 H, Gran % 90.1 H, Lymphocytes % 4.8 L, Monocytes % 4.9, Eosinophils % 0.1, Basophils % 0.1, Absolute Granulocytes 10.1 H, Segmented Neutrophils 90 H, Band Neutrophils 4, Absolute Lymphocytes 0.5 L, Lymphocytes 4 L, Monocytes 2, Absolute Monocytes 0.5, Absolute Eosinophils 0, Absolute Basophils 0, Platelet Estimate VERIFIED BY SMEAR, Anisocytosis 1+, PUBS MCHC 31.0 L Assessment/Plan Assessment/Plan Assessment: 1. Right lower lobe pneumonia 2. Atrial fibrillation, rate under control 3. Coronary artery disease 4. Hypertension . End-stage renal disease on dialysis Plan: * Continue current cardiac medications. * Anticoagulation on hold now given to medical issues, and plans for upcoming colonoscopy * Antibiotics as per the medical service Continue telemetry? Yes
--- NOTE | 2017-01-29 11:40 | PN- Nephrology ---
Objective Vital Signs and I&Os Vital Signs Date Time Temp Pulse Resp B/P B/P Pulse O2 O2 Flow FiO2 Mean Ox Delivery Rate 01/29 1256 Nasal 3.0L Cannula 01/29 1147 95 Nasal 3.0L Cannula 01/29 0935 110 140/76 01/29 0800 Nasal 3.0L Cannula 01/29 0800 98.4 128 20 140/70 94 Nasal 3.0L Cannula 01/29 0717 98 Nasal 3.0L Cannula 01/29 0000 CPAP 01/28 2228 97.9 96 22 124/70 100 Nasal Cannula 01/28 2128 99 01/28 1715 97 Nasal 3.0L Cannula 01/28 1600 95 Nasal 3.0L Cannula 01/28 1554 97.8 129 24 124/58 95 Nasal 3.0L Cannula Intake & Output 01/29 1600 01/29 0400 01/28 1600 01/28 0400 01/27 1600 01/27 0400 Intake Total 120 320 640 610 580 680 Output Total Balance 120 320 640 610 580 680 Intake, IV 250 Intake, Oral 120 320 640 360 580 680 Number 1 0 Bowel Movements Patient 165 lb 166 lb Weight Weight Standing Scale Chair scale Measurement Method
--- NOTE | 2017-01-29 14:29 | PN- Nephrology ---
Assessment/Plan Assessment: ESRD - Stable without dialysis today. Will need to have EDW titrated down on discharge. SOB - Multifactorial including COPD, ?PNA, +/- fluid. He needs to be kept as dry as possible from a dialysis standpoint. Suggestion: -Dialysis tomorrow -EDW likely to be titrated down Please call [phone] with ?'s Subjective Subjective: Pt had dialysis yesterday Feeling OK today Weight down to 75kg (EDW 77kg as outpatient) Objective Vital Signs and I&Os Vital Signs Date Time Temp Pulse Resp B/P B/P Pulse O2 O2 Flow FiO2 Mean Ox Delivery Rate 01/29 1256 Nasal 3.0L Cannula 01/29 1147 95 Nasal 3.0L Cannula 01/29 0935 110 140/76 01/29 0800 Nasal 3.0L Cannula 01/29 0800 98.4 128 20 140/70 94 Nasal 3.0L Cannula 01/29 0717 98 Nasal 3.0L Cannula 01/29 0000 CPAP 01/28 2228 97.9 96 22 124/70 100 Nasal Cannula 01/28 2128 99 01/28 1715 97 Nasal 3.0L Cannula 01/28 1600 95 Nasal 3.0L Cannula 01/28 1554 97.8 129 24 124/58 95 Nasal 3.0L Cannula 01/28 1432 127 142/70 01/28 1427 126 24 142/70 95 Nasal 3.0L Cannula Intake & Output 01/29 1600 01/29 0400 01/28 1600 01/28 0400 01/27 1600 01/27 0400 Intake Total 120 320 640 610 580 680 Output Total Balance 120 320 640 610 580 680 Intake, IV 250 Intake, Oral 120 320 640 360 580 680 Number 1 0 Bowel Movements Patient 165 lb 166 lb Weight Weight Standing Scale Chair scale Measurement Method Physical Exam: Gen - OK appearing HEENT - supple CV - RRR Chest - +rhonchi/+crackles/+wheezes Abd - soft, nontender Ext - no significant edema Access - DHRUV AVF +thrill/+bruit Current Medications: Current Medications Sig/Zoe Start time Last Medication Dose Route Stop Time Status Admin Acetaminophen 650 MG Q6 PRN 01/25 2115 AC PO Albuterol Sulfate 3 ML EVERY 4 HRS/AWAKE 01/26 0800 AC 01/29 INH 1144 Albuterol Sulfate 3 ML Q4P PRN 05/26 2130 AC INH Albuterol Sulfate 2 PUF DAILY 01/25 2121 AC 01/27 INH 0940 Aspirin Buffered 81 MG DAILY 01/25 2300 AC 01/29 PO 0932 Atorvastatin Calcium 40 MG 1700 01/26 1700 AC 01/28 PO 1735 Budesonide/ 2 PUF BID 01/25 2200 AC 01/29 Formoterol Fumarate INH 0941 Calcium Acetate 2,001 MG WM 01/26 1700 AC 01/29 PO 1239 Ciprofloxacin 500 MG DAILY 01/28 1122 AC 01/29 PO 02/01 1121 0931 Docusate Sodium 100 MG BID 01/26 2200 AC 01/29 PO 0932 Epoetin Yran 3,000 UNIT MoWeFr PRN 01/28 1000 AC 01/28 IV 1400 Epoetin Ryan 8,000 UNIT MoWeFr PRN 01/28 0945 AC 01/28 IV 1400 Glycerin 2 SPRAY Q2P PRN 01/28 1600 AC 01/28 PO 1740 Heparin Sodium 5,000 UNIT Q8 01/26 0100 AC 01/29 (Porcine) SC 0639 Ipratropium [place] 2.5 ML EVERY 4 HRS/AWAKE 01/26 0800 AC 01/29 INH 1144 Metoprolol Tartrate 62.5 MG BID 01/28 220 DC PO Metoprolol Tartrate 62.5 MG BID 01/28 1300 AC 01/29 PO 0935 Morphine Sulfate 0.5 MG Q8P PRN 01/25 2130 AC IV Multivitamins 1 TAB DAILY 01/25 2300 AC 01/29 PO 0932 Omeprazole 40 MG DAILY AC 01/26 0700 AC 01/29 PO 0639 Oxycodone HCl 5 MG Q6 PRN 01/25 2115 AC 01/29 PO 0757 Paricalcitol 5 MCG MoWeFr PRN 01/28 1000 AC 01/28 IV 1254 Polyethylene Glycol 17 GM AT BEDTIME 01/25 2200 AC 01/27 PO 2127 Prednisone 40 MG DAILY 01/27 1000 AC 01/29 PO 0932 Roflumilast 500 MCG DAILY 01/26 1000 AC 01/29 PO 0935 Senna/Docusate Sodium 1 TAB AT BEDTIME 01/25 2200 AC 01/28 PO 2126 Tiotropium [place] 1 PUF DAILY 01/26 1000 AC 01/29 INH 0936 Results Pertinent Lab Results: Laboratory Tests 01/29 01/28 0609 1028 Chemistry Sodium (137 - 145 mmol/L) 137 135 L Potassium (3.5 - 5.1 mmol/L) 5.4 H 5.5 H Chloride (98 - 107 mmol/L) 97 L 94 L Carbon Dioxide (22 - 30 mmol/L) 24 23 Anion Gap (5 - 16) 16 19 H BUN (9 - 20 mg/dL) 55 H 109 *H Creatinine (0.7 - 1.2 mg/dL) 5.0 H 9.3 *H Estimated GFR (>60 ml/min) 11 L 6 L BUN/Creatinine Ratio (7 - 25 %) 11.0 11.7 Magnesium (1.6 - 2.3 mg/dL) 2.4 H Hematology CBC w Diff NO MAN DIFF REQ MAN DIFF ORDERED WBC (4.8 - 10.8 /CUMM) 9.8 11.2 H RBC (4.70 - 6.10 /CUMM) 4.01 L 3.72 L Hgb (14.0 - 18.0 G/DL) 10.6 L 9.9 L Hct (42 - 52 %) 34.6 L 31.9 L MCV (80.0 - 94.0 FL) 86.3 85.8 MCH (27.0 - 31.0 PG) 26.5 L 26.6 L RDW (11.5 - 14.5 %) 17.6 H 17.5 H Plt Count (130 - 400 /CUMM) 187 187 MPV (7.4 - 10.4 FL) 10.3 10.5 H Gran % (42.2 - 75.2 %) 88.7 H 90.1 H Lymphocytes % (20.5 - 51.1 %) 6.4 L 4.8 L Monocytes % (1.7 - 9.3 %) 4.9 4.9 Eosinophils % (0 - 5 %) 0 0.1 Basophils % (0.0 - 2.0 %) 0 L 0.1 Absolute Granulocytes (1.4 - 6.5 /CUMM) 8.7 H 10.1 H Segmented Neutrophils (42.2 - 75.2 %) 90 H Band Neutrophils (0.0 - 5.0 %) 4 Absolute Lymphocytes (1.2 - 3.4 /CUMM) 0.6 L 0.5 L Lymphocytes (20.5 - 51.1 %) 4 L Monocytes (1.7 - 9.3 %) 2 Absolute Monocytes (0.10 - 0.60 /CUMM) 0.5 0.5 Absolute Eosinophils (0.0 - 0.7 /CUMM) 0 0 Absolute Basophils (0.0 - 0.2 /CUMM) 0 0 Platelet Estimate (ADEQUATE) VERIFIED BY SMEAR Anisocytosis 1+ PUBS MCHC (33.0 - 37.0 G/DL) 30.7 L 31.0 L Imaging/Other Studies: Chest X-ray 01/25 EXAMINATION: XR PORTABLE CHEST CLINICAL INFORMATION: Cough and shortness of breath COMPARISON: 12/10/[address] from 01/08/2017. TECHNIQUE: Portable frontal view of the chest was obtained. FINDINGS: Cardiac leads overlie the chest. The lungs are well expanded. There is a right basilar airspace opacity. No pleural effusion or pneumothorax. The cardiomediastinal silhouette is unchanged, with a tortuous and calcified aorta. Bilateral hilar prominence. IMPRESSION: Right basilar airspace opacity suspicious for pneumonia. This likely correlates to the appearance on prior PET/CT, likely increased. Hilar prominence may be associated with prominent vasculature.
[2017-01-29 15:30] VITALS: BP 118/78
--- NOTE | 2017-01-29 18:33 | PN- Pulmonary ---
Subjective HPI/Critical Care Issues: Patient seen and examined, still feels very short of breath. He tried to work with physical therapy this morning but going from bed to chair made him very short of breath. His oxygen saturation is 95% on 3 L. Objective Current Medications: Current Medications Sig/Zoe Start time Last Medication Dose Route Stop Time Status Admin Acetaminophen 650 MG Q6 PRN 01/25 2115 AC PO Albuterol Sulfate 3 ML EVERY 4 HRS/AWAKE 01/26 0800 AC 01/29 INH 1640 Albuterol Sulfate 3 ML Q4P PRN 01/25 2130 AC INH Albuterol Sulfate 2 PUF DAILY 01/25 2121 AC 01/27 INH 0940 Aspirin Buffered 81 MG DAILY 01/25 230 AC 01/29 PO 0932 Atorvastatin Calcium 40 MG 1700 01/26 1700 AC 01/28 PO 1735 Budesonide/ 2 PUF BID 01/25 2200 AC 01/29 Formoterol Fumarate INH 0941 Calcium Acetate 2,001 MG WM 01/26 1700 AC 01/29 PO 1239 Ciprofloxacin 500 MG DAILY 01/28 1122 AC 01/29 PO 02/01 1121 0931 Docusate Sodium 100 MG BID 01/26 2200 AC 01/29 PO 0932 Epoetin Ryan 3,000 UNIT MoWeFr PRN 01/28 1000 AC 01/28 IV 1400 Epoetin Ryan 8,000 UNIT MoWeFr PRN 01/28 0945 AC 01/28 IV 1400 Glycerin 2 SPRAY Q2P PRN 01/28 1600 AC 01/28 PO 1740 Heparin Sodium 5,000 UNIT Q8 01/26 0100 AC 01/29 (Porcine) SC 1430 Ipratropium [place] 2.5 ML EVERY 4 HRS/AWAKE 01/26 08 AC 01/29 INH 1640 Metoprolol Tartrate 62.5 MG BID 01/28 2200 DC PO Metoprolol Tartrate 62.5 MG BID 01/28 1300 AC 01/29 PO 0935 Morphine Sulfate 0.5 MG Q8P PRN 01/25 2130 AC IV Multivitamins 1 TAB DAILY 01/25 2300 AC 01/29 PO 0932 Omeprazole 40 MG DAILY AC 01/26 0700 AC 01/29 PO 0639 Oxycodone HCl 5 MG Q6 PRN 01/25 2115 AC 01/29 PO 0757 Paricalcitol 5 MCG MoWeFr PRN 01/28 1000 AC 01/28 IV 1254 Polyethylene Glycol 17 GM AT BEDTIME 01/25 2200 AC 01/27 PO 2127 Prednisone 30 MG DAILY 01/30 1000 AC PO Prednisone 40 MG DAILY 01/27 1000 DC 01/29 PO 0932 Roflumilast 500 MCG DAILY 01/26 1000 AC 01/29 PO 0935 Senna/Docusate Sodium 1 TAB AT BEDTIME 01/25 2200 AC 01/28 PO 2126 Tiotropium [place] 1 PUF DAILY 01/26 1000 AC 01/29 INH 0936 Vital Signs & I&O Last 24 Hrs of Vitals and I&O: Vital Signs Date Time Temp Pulse Resp B/P B/P Pulse O2 O2 Flow FiO2 Mean Ox Delivery Rate 01/29 1640 97 Nasal 3.0L Cannula 01/29 1530 97.5 118 16 118/78 95 Nasal 3.0L Cannula 01/29 1256 Nasal 3.0L Cannula 01/29 1147 95 Nasal 3.0L Cannula 01/29 0935 110 140/76 01/29 0800 Nasal 3.0L Cannula 01/29 0800 98.4 128 20 140/70 94 Nasal 3.0L Cannula 01/29 0717 98 Nasal 3.0L Cannula 01/29 0000 CPAP 01/28 2228 97.9 96 22 124/70 100 Nasal Cannula 01/28 2128 99 Intake & Output 01/29 1600 01/29 0800 01/29 0000 Intake Total 500 120 320 Output Total 0 Balance 500 120 320 Intake, Oral 500 120 320 Number 1 Bowel Movements Output, Urine 0 Patient 165 lb Weight Weight Standing Scale Measurement Method Impression/Plan Impression/Plan Impression/Plan: Physical Exam General Appearance Alert, Oriented X3, Cooperative, No Acute Distress Skin No Significant Lesion HEENT Atraumatic, PERRLA, EOMI, Mucous Membr. moist/pink Neck Supple, No JVD, no cervical lymphadenopathy Cardiovascular ireegularly irregular. not tachy Lungs Diffusely rhoncherous, particularly in R. lobes. Had some chrackles nad wheezes as well Abdomen tomás tenderness with deep palpation in RUQ. 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, recurrent exacerbation on prednisone, Bronchiectasis due to recurrent infections, dietary noncompliance, ESRD, mild bilateral bronchiectasis, morbid obesity with obstructive sleep apnea , hypertension, previous hyperkalemia, cor pulmonale, on CPAP at home, previous hepatic disease with splenomegaly, moderate to severe pulmonary hypertension, myelodysplastic process, now comes in with * Fever whitish sputum and fatigue with rapid afib with prob recurrent pseudomonas infection with exacerbation of broncheictasis infection * Afib with rapid rate before now rate controlled, and pt not a great candidate for anticoag * Recent PET scan with significant abnormality. with activity in the colon with anemia needs endoscopy * Mediastinal lymphadenopathy chronic and no pet activity * He also seemed to have a new cervical lymphadenopathy which was PET positive. This needs to be investigated pt to follow with ENT * He does have myelodysplasia and he seems to have increasing splenomegaly and he is followed by oncology * He has had ischemic heart disease and this has been stable recent angiogram was unrevealing per patient, and now with newonset afib * Sig copd with mild bronchiectasis with chronic pseudomonas and s. maltophilia * SIg thoracic aneurysm saccular in nature with no worsening of his aneurysm or any dissection by recent ct * Obstructive sleep apnea on CPAP compliant * Chronic steroid use, hence immunosuppressed * Morbid obesity with noncompliance with diet before now stable, HTN, ESRD on dialysis * Previous history of biliary sepsis obstruction no no evidence suggestive of that with previous stent with pneumobilia RECOMMENDATION cipro for a total of 10 days Prednisone 40 daily and taper in 8 days Afib mgt and anticoag plan per cardio ENT evaluation as out pt CT scan of the chest to evaluate subtle abnormalities he has in 3 months Continue oxygen continue all other medications upon dc will start azithro three times a week
[2017-01-29 23:00] VITALS: BP 134/72
--- NOTE | 2017-01-30 07:59 | PN- Housestaff ---
JASON MONTES,LETI 01/30/17 0759: Subjective Follow-up For: pna acute resp failure Subjective: Seen and examined while seated on a recliner and awaiting to be transported to another room for dialysis. He still complaints of shortness of breath when standing up. he reports that he feel he is not close to his baseline. No acute complaints of cp/palpitation,fever/chills. No acute o/n event reported by nursing staff. Review of Systems Constitutional: Reports: no symptoms. Objective Last 24 Hrs of Vital Signs/I&O Vital Signs Date Time Temp Pulse Resp B/P B/P Pulse O2 O2 Flow FiO2 Mean Ox Delivery Rate 01/30 1257 92 Nasal 2.0L Cannula 01/30 1208 138/68 01/30 1200 Nasal 3.0L Cannula 01/30 1159 138/68 01/30 0000 Non 3.0L ReBreather 01/29 2300 98.0 120 20 134/72 96 Nasal 1.0L Cannula 01/29 2107 120 134/85 Intake & Output 01/30 1600 01/30 0800 01/30 0000 Intake Total 240 120 120 Output Total 4000 Balance -3760 120 120 Intake, Oral 240 120 120 Output, 4000 Dialysate Patient 73.028 kg 76.317 kg Weight Weight Standing Scale Chair scale Measurement Method Physical Exam General Appearance: Alert, Oriented X3, Cooperative Cardiovascular: Regular Rate, Normal S1, Normal S2 Lungs: Clear to Auscultation Abdomen: Normal Bowel Sounds, Soft, No Tenderness Neurological: Normal Speech, Normal Tone, Sensation Intact Extremities: No Cyanosis, No Edema, No Tenderness/Swelling Assessment/Plan Assessment: 71-year-old man with past medical history significant for chronic COPD, oxygen dependent 2 L at baseline, septic sleep apnea, coronary artery disease status post right RCA stenting 10 years ago, pulmonary hypertension, descending thoracic artery aneurysm, end-stage renal disease on dialysis Saturday and Saturday came to emergency department with shortness of breath and dyspnea on exertion which has been going on for the last 3-4 days. Patient went to his dialysis today and was told to go to emergency department. Patient also has increased phlegm for the last 4 days along with more shortness of breath and requiring 3 L than 2 L at baseline. Atrial fibrillation with RVR with h/o CHF Most likely 2/2 possible CHF ( High BNP ) vs ACS (Negative Troponins and No ST changes on EKG) VS vs ? Hyperthyroidism. Current [id number] score 4, Stroke risk was 4.8% per year. Patient is currently not on any anticoagulation as per discussion with clay carman. Got IV cardizem push and IV metoprolol on admission. * We will continue metoprolol to 62.5 mg twice a day Acute on chronic hypoxic respiratory failure 2/2 COPD exacerbation Patient remained afebrile overnight. Chest x-ray showed right basilar opacity which is not a significant change from the previous imaging. Sputum culture grows Pseudomonas that sensitive to ciprofloxacin. * Continue cipro * Continue Prednisone 30 mg taper * Continue CPAP for obstructive sleep apnea Chronic kidney disease on dialysis * Came from dialysis earlier today * Continue with Epogen SQ heparin for DVT prophylaxis renal dialysis diet full code Problem List: 1. Atrial fibrillation 2. Pneumonia Pain Ratin Pain Location: none Pain Goal: Remain pain free Pain Plan: per pain pathway Tomorrow's Labs & Rationales: BEP CBC Consulting Request: Consulting Specialty: Cardiology YOHANA MONTES,[facility] 01/30/17 1303: Attending MD Review Statement Attending Statement Attending MD Statement: examined this patient, discuss w/resident/PA/OR DIRECTOR, agreed w/resident/PA/OR DIRECTOR, reviewed EMR data (avail), discussed with nursing, discussed with case mgmt, reviewed images, amended to note Attending Assessment/Plan: Patient seen and examined at dialysis. His breathing was still very difficult this morning. His o2 sats are ok but subjectively he feels short of breath. Vital Signs Date Time Temp Pulse Resp B/P B/P Pulse O2 O2 Flow FiO2 Mean Ox Delivery Rate 01/30 1257 92 Nasal 2.0L Cannula 01/30 1208 138/68 01/30 1159 138/68 01/30 0000 Non 3.0L ReBreather 01/29 2300 98.0 120 20 134/72 96 Nasal 1.0L Cannula 01/29 2107 120 134/85 01/29 1640 97 Nasal 3.0L Cannula 01/29 1530 97.5 118 16 118/78 95 Nasal 3.0L Cannula on exam; aox3, nad. cv; s1,s2, rrr, + systolic murmur. resp; clear abd; soft, nt, bs+ ext; no edema. Laboratory Tests 01/30 01/30 01/30 0824 0730 0600 Chemistry Sodium (137 - 145 mmol/L) 135 L Cancelled Potassium (3.5 - 5.1 mmol/L) 4.9 Cancelled Chloride (98 - 107 mmol/L) 95 L Cancelled Carbon Dioxide (22 - 30 mmol/L) 27 Cancelled Anion Gap (5 - 16) 13 Cancelled BUN (9 - 20 mg/dL) 75 H Cancelled Creatinine (0.7 - 1.2 mg/dL) 6.8 *H Cancelled Estimated GFR (>60 ml/min) 8 L BUN/Creatinine Ratio (7 - 25 %) 11.0 Cancelled Glucose (65 - 99 mg/dL) 92 Phosphorus (2.5 - 4.5 mg/dL) 4.2 Albumin (3.5 - 5.0 g/dL) 3.2 L Hematology CBC w Diff Cancelled NO MAN DIFF REQ Cancelled WBC (4.8 - 10.8 /CUMM) Cancelled 11.9 H Cancelled RBC (4.70 - 6.10 /CUMM) Cancelled 3.89 L Cancelled Hgb (14.0 - 18.0 G/DL) Cancelled 10.3 L Cancelled Hct (42 - 52 %) Cancelled 33.4 L Cancelled MCV (80.0 - 94.0 FL) Cancelled 85.8 Cancelled MCH (27.0 - 31.0 PG) Cancelled 26.6 L Cancelled RDW (11.5 - 14.5 %) Cancelled 17.6 H Cancelled Plt Count (130 - 400 /CUMM) Cancelled 190 Cancelled MPV (7.4 - 10.4 FL) Cancelled 10.5 H Cancelled Gran % (42.2 - 75.2 %) 79.7 H Lymphocytes % (20.5 - 51.1 %) 12.4 L Monocytes % (1.7 - 9.3 %) 7.4 Eosinophils % (0 - 5 %) 0.2 Basophils % (0.0 - 2.0 %) 0.3 Absolute Granulocytes (1.4 - 6.5 /CUMM) 9.5 H Absolute Lymphocytes (1.2 - 3.4 /CUMM) 1.5 Absolute Monocytes (0.10 - 0.60 /CUMM) 0.9 H Absolute Eosinophils (0.0 - 0.7 /CUMM) 0 Absolute Basophils (0.0 - 0.2 /CUMM) 0 PUBS MCHC (33.0 - 37.0 G/DL) Cancelled 31.0 L Cancelled A/P; 71-year-old man with past medical history significant for chronic resp failure, COPD, oxygen dependent 2 L at baseline, sleep apnea, coronary artery disease status post right RCA stenting 10 years ago, pulmonary hypertension, descending thoracic artery aneurysm, end-stage renal disease on dialysis Saturday and Saturday admitted with acute/ chronic resp failure, pseudomonas pneumonia, afib with rvr. Patient currently getting treated with Cipro. We'll continue the prednisone taper. He has received his hemodialysis today. We will reevaluate after the dialysis to see if there is any improvement in his shortness of breath. Currently requiring 3 L of oxygen. Baseline is at 2 L. We'll try to taper further if he can tolerate. Continue the rest of the home medications. Once patient's subjective feeling of shortness of breath is better, he would be discharged to rehabilitation. Question adding low-dose benzo for possible anxiety. We'll discuss with Dr. Belle. DVT px; hep sq.
--- NOTE | 2017-01-30 08:06 | Discharge Summary ---
See Addendum Visit Information Visit Dates Admission Date: 01/25/17 Discharge Date: 02/01/17 Hospital Course Course Attending Physician: LIANNA SULTANA Primary Care Physician: SARITA MONTES,CYNDI Barron Consulting Request: Consulting Specialty: Cardiology Hospital Course: This 71-year-old male with past medical history of end-stage renal disease on dialysis Saturday and Saturday, end-stage COPD on 2 L of home oxygen, obstructive sleep apnea on CPAP, coronary artery disease status post RCA stent, saccular aneurysm of descending aorta, mediastinal lymphadenopathy and came in to [place] [facility] on 01/25/2017 with chief complaint WORSENING shortness of breath cough and increased sputum production. At the emergency department patient was found to be in atrial fibrillation with rapid ventricular rate and heart rate was up to 157. Appendectomy patient had an appointment with his car worker Dr. Avila in 1 week prior to presentation and he was informed that he was in atrial fibrillation. Prior to that he did not have any atrial fibrillation. On Presentation patient was febrile up to 100.5, heart rate of 144, respiration 24, blood pressure 116/60, proBNP 83291. BUN/creatinine 30/4.1. No leukocytosis. Chest x-ray showed right basilar airspace opacity suspicious for pneumonia.Hilar prominence was associated with prominent vasculature. EKG showed atrial fibrillation with rapid ventricular rate. He was admitted to telemetry floor for management of following problems. Problem list along with assessment and plan. #1Atrial fibrillation with RVR The duration since the patient has been having atrial fibrillation was unknown, Chadsvasc score was found to be 4. She also had high proBNP and there was a question of congestive heart failure. Patient received IV Cardizem push and IV metoprolol at the emergency department.His anticoagulation was on hold for now secondary to medical issues and plans for upcoming colonoscopy.Metoprolol was increased to 62.5 twice a day from 50 #2 Acute on chronic hypoxic respiratory failure 2/2 to psuedomonas pnuemonia and COPd exacerbation This was thought to be secondary to pneumonia. Acute hypoxic respiratory failure was thought to be secondary to pneumonia and patient was started on IV ceftazidime for treatment of hospital-acquired pneumonia. Respiratory cultures grew pseudomonas aeruginosa that was sensitive to ceftazidime and ciprofloxacin and meropenem and resistant to gentamicin.Patient was switched to by mouth ciprofloxacin once he could take orally. A total of 10 days of antibiotics were given. Patient was also started on steroid taper. Mucinex for symptomatic relief was given while at the hospital. He was also continued on rofumilast which is home medication.TRC nebulisations were continued. She was also continued on paricalcitol. #3 CKD on dialysis Nephrology was consulted and patient was continued on routine dialysis on Saturday and Saturday.Epogen 11,000 units IV 3 times a week was given with dialysis. #4 End stage COPD And was continued on TRC nebulizations, pulmonology was on board, inhalers were continued as an inpatient. Patient needs follow-up CAT scan in 3 months to evaluate the lymphadenopathy further. Patient was discharged on azithromycin 3 times a week as chronic prophylaxis. #5 obstructive sleep apnea. Patient needs to use CPAP at night however patient is not completely compliant. Compliance was reinforced again. Aspirin, statin, antacid and other chronic home medications that she he takes at home were continued while inpatient. Allergies: Coded Allergies: venom-honey bee (bee venom (honey bee)) (Severe, ANAPHYLAXIS 01/25/17) Penicillins (Intermediate, RASH 01/25/17) Significant Procedures: SERVICE DATE: 01/25/17 EXAMINATION: XR PORTABLE CHEST IMPRESSION: Right basilar airspace opacity suspicious for pneumonia. This likely correlates to the appearance on prior PET/CT, likely increased. Hilar prominence may be associated with prominent vasculature. Disposition Summary Disposition Principal Diagnosis: New onset atrial fibrillation acute hypoxic respiratory failure psuedomonas Gram negatvie pnuemonia COPD exacerbation Additional Diagnosis: CKD on dialysis Hyperlipidemia hypertension GERD Discharge Disposition: SNF Discharge Instructions General Discharge Information Code Status: Full Code Patient's Diet: Renal dialysis Diet Patient's Activity: As tolerated. Follow-Up Instructions/Appts: Please follow up with ENT as OP for follow up of cervical lymphadenopathy. please follow up with you PCP within one week of discharge. Please follow up with your lung doctor within one week of discharge. Please repeat Ct chest in 3 months. Medications at Discharge Discharge Medications: Stop taking the following medications: Metoprolol Tartrate (Metoprolol Tartrate) 50 MG TABLET ORAL TWICE DAILY Qty = 30 Aclidinium [place] (Tudorza Pressair) 400 MCG/ACTUATION AER.POW.BA Inhale through mouth TWICE DAILY Qty = 3 Continue taking these medications: Calcium Acetate (Calcium Acetate) 667 MG TABLET 3 Capsule ORAL WITH MEALS Comments: Last Taken: 02/01/17 Time: 1:00 PM Nephro-Vitamins (Nephro-Angie Tablet) 0.8 MG TABLET 1 Tablet ORAL DAILY Comments: Last Taken: 02/01/17 Time: 1:00 PM Budesonide/Formoterol Fumarate (Symbicort 160-4.5 Mcg Inhaler) 10.2 GM HFA.AER.AD 2 Puff Inhale through mouth TWICE DAILY Qty = 1 Comments: Last Taken: 02/01/17 Time: 1:00 PM Albuterol Sulfate (Albuterol Sulfate) 2.5 MG/3 ML VIAL.NEB 1 Vial Inhale Solution EVERY 4 HOURS NEEDED Comments: Last Taken: 02/01/17 Time: 1:30 Roflumilast (Daliresp) 500 MCG TABLET 1 Tablet ORAL DAILY Qty = 90 Comments: Last Taken: 02/01/17 Time: 1:00 PM Albuterol Sulfate (Proair Hfa) 8.5 GM HFA.AER.AD 2 Puff Inhale through mouth as needed for COPD Comments: Last Taken: 01/30/17 Time: 12:00 PM Ipratropium/Albuterol Sulfate (Combivent Respimat Inhal [place]) 4 GM MIST.INHAL 1 PUFF Inhale through mouth 4 TIMES A DAY Comments: NOT TAKEN IN HOSPITAL Pantoprazole Sodium (Pantoprazole Sodium) 40 MG TABLET.DR 1 Tablet ORAL DAILY Qty = 30 Comments: PRILOSEC GIVEN IN PLACE Last Taken: 01/31/17 Time: 6:00 AM Aspirin (Lo-Dose Aspirin EC) 81 MG TABLET.DR 1 Tablet ORAL DAILY Qty = 90 Comments: Last Taken: 02/01/17 Time: 1:00 PM Atorvastatin Calcium (Atorvastatin Calcium) 40 MG TABLET 1 Tablet ORAL DAILY Qty = 90 Comments: Last Taken: 01/31/17 Time: 6:00 PM Oxycodone HCl/Acetaminophen (Oxycodone-Acetaminophen 10-325) 10 MG-325 MG TABLET 0.5 Tablet ORAL as needed for PAIN Qty = 90 Comments: Last Taken: 02/01/17 Time: 1:00 PM Azithromycin (Azithromycin) 250 MG TABLET 1 Tablet ORAL Every other day Qty = 60 Instructions: TAKE ON SATURDAY,SATURDAY,AND SATURDAY Comments: NOT TAKEN IN HOSPITAL This prescription has been renewed Start taking the following new medications: Metoprolol Tartrate (Metoprolol Tartrate) 50 MG TABLET 62.5 Milligram ORAL TWICE DAILY Qty = 30 No Refills Instructions: . Comments: Last Taken: 02/01/17 Time: 1:00 PM Epoetin Ryan (Procrit) 3,000 UNIT/ML VIAL 3,000 Unit INTRAVEN MoWeFr as needed for WITH DIALYSIS Qty = 30 No Refills Comments: Last Taken: 02/01/17 Time: 10:00 AM GIVEN BY DIALYSIS NURSE Tiotropium [place] (Spiriva) 18 MCG CAP.W.DEV 1 Puff Inhale through mouth DAILY Days = 30 No Refills Comments: Last Taken: 02/01/17 Time: 1:00 PM Diltiazem HCl (Cardizem) 30 MG TABLET 30 Milligram ORAL TWICE DAILY Qty = 60 No Refills Comments: Last Taken: 02/01/17 Time: 1:00 PM Prednisone (Prednisone) 10 MG TABLET 1 Tablet ORAL SEE INSTRUCTIONS Qty = 9 No Refills Instructions: TAKE 2 TABLETS FOR 3 DAYS TAKE 1 TABLET FOR 3 DAYS Comments: Last Taken: 01/31/17 Time: 9:00 AM Ciprofloxacin HCl (Cipro) 500 MG TABLET 1 Tablet ORAL DAILY Qty = 2 No Refills Comments: Last Taken: 02/01/17 Time: 1:00 PM Paricalcitol (Zemplar) 5 MCG/ML VIAL 5 Microgram INTRAVEN MoWeFr as needed for WITH DIALYSIS Qty = 30 No Refills Epoetin Ryan (Epogen) 4,000 UNIT/ML VIAL 8,000 Unit INTRAVEN MoWeFr as needed for WITH DIALYSIS Qty = 30 No Refills Azithromycin (Azithromycin) 250 MG TABLET 1 Tablet ORAL Every other day Qty = 60 No Refills Comments: NOT TAKEN IN HOSPITAL Copies To: KIM MONTES,AHSAN Meza; LOLA MONTES,EARLINE SJac; SARITA MONTES,CYNDI Barron; ERICA MONTES,Anne LAZCANO Attending MD Review Statement Documenting Attending: LIANNA MULLER MD
[2017-01-30] MEDS ORDERED: ZEMPLAR5 MCG/1 ML IV (08:09)
[2017-01-30] MEDS ORDERED: METOPROLOL TART50 M1 PO (08:12)
[2017-01-30] MEDS ORDERED: EPOGEN4000 UNIT/ IV (09:13)
[2017-01-30] MEDS ORDERED: PROCRIT3000 UNIT/ IV (09:15)
[2017-01-30 09:33] LABS: ABSOLUTE BASOPHIL COUNT 0 /CUMM (0.0-0.2); ABSOLUTE EOSINOPHIL COUNT 0 /CUMM (0.0-0.7); ABSOLUTE GRANULOCYTE CT 9.5 /CUMM (1.4-6.5); ABSOLUTE LYMPH COUNT 1.5 /CUMM (1.2-3.4); ABSOLUTE MONOCYTE COUNT 0.9 /CUMM (0.10-0.60); BASOPHIL % 0.3 % (0.0-2.0); EOSINOPHIL % 0.2 % (0-5); GRANULOCYTE % 79.7 % (42.2-75.2); HEMATOCRIT 33.4 % (42-52); MEAN CORPUSCULAR HGB 26.6 PG (27.0-31.0); MEAN CORPUSCULAR VOLUME 85.8 FL (80.0-94.0); MEAN PLATELET VOLUME 10.5 FL (7.4-10.4); PLATELET COUNT 190 /CUMM (130-400); RBC DISTRIBUTION WIDTH 17.6 % (11.5-14.5); RED BLOOD CELL CT 3.89 /CUMM (4.70-6.10); WHITE BLOOD CELL COUNT 11.9 /CUMM (4.8-10.8)
--- NOTE | 2017-01-30 11:01 | PN- Nephrology ---
Assessment/Plan Assessment: ESRD - Dialysis today. Looks like we may be able to get off a significant amount of fluid. EDW will certainly need to be titrated down. SOB - Multifactorial including COPD, ?PNA, bronchiectasis, +/- fluid. He needs to be kept as dry as possible from a dialysis standpoint. EDW to be titrated down. Would he be a candidate for a somewhat palliative approach to his end stage lung disease including opioids as an outpatient? Anemia - Hg 10.3 (at goal). MBD - Phos 4.2 (at goal). Suggestion: -Dialysis today - headed toward 4L UF -Downtitration of EDW on discharge -Cont TIW Epogen -Cont TIW Paricalcitol -Cont calcium acetate -?Candidate for palliative approach to end stage lung disease including opioids? Would defer to Dr. Belle Please call [phone] with ?'s Subjective Subjective: Pt seen and examined on dialysis Still with SOB Weight 76.2kg this AM (EDW prior was 77kg) Objective Vital Signs and I&Os Vital Signs Date Time Temp Pulse Resp B/P B/P Pulse O2 O2 Flow FiO2 Mean Ox Delivery Rate 01/30 0000 Non 3.0L ReBreather 01/29 2300 98.0 120 20 134/72 96 Nasal 1.0L Cannula 01/29 2107 120 134/85 01/29 1640 97 Nasal 3.0L Cannula 01/29 1530 97.5 118 16 118/78 95 Nasal 3.0L Cannula 01/29 1256 Nasal 3.0L Cannula 01/29 1147 95 Nasal 3.0L Cannula Intake & Output 01/30 1600 01/30 0400 01/29 1600 01/29 0400 01/28 1600 01/28 0400 Intake Total 120 120 620 320 640 610 Output Total 0 Balance 120 120 620 320 640 610 Intake, IV 250 Intake, Oral 120 120 620 320 640 360 Number 1 0 Bowel Movements Output, Urine 0 Patient 168 lb 165 lb 166 lb Weight Weight Chair scale Standing Scale Chair scale Measurement Method Physical Exam: Gen - OK appearing HEENT - supple CV - RRR Chest - +rhonchi auscultated laterally Abd - soft, nontender Ext - no significant edema Access - DHRUV AVF +thrill/+bruit Current Medications: Current Medications Sig/Zoe Start time Last Medication Dose Route Stop Time Status Admin Acetaminophen 650 MG Q6 PRN 01/25 2115 AC PO Albuterol Sulfate 3 ML EVERY 4 HRS/AWAKE 01/26 0800 AC 01/29 INH 2004 Albuterol Sulfate 3 ML Q4P PRN 01/25 2130 AC INH Albuterol Sulfate 2 PUF DAILY 01/25 2121 AC 01/27 INH 0940 Aspirin Buffered 81 MG DAILY 01/25 2300 AC 01/29 PO 0932 Atorvastatin Calcium 40 MG 1700 01/26 1700 AC 01/29 PO 1834 Budesonide/ 2 PUF BID 01/25 2200 AC 01/29 Formoterol Fumarate INH 2106 Calcium Acetate 2,001 MG WM 01/26 1700 AC 01/29 PO 1834 Ciprofloxacin 500 MG DAILY 01/28 1122 AC 01/29 PO 02/01 1121 0931 Docusate Sodium 100 MG BID 01/26 2200 AC 01/29 PO 210 Epoetin Ryan 3,000 UNIT MoWeFr PRN 01/28 1000 AC 01/28 IV 1400 Epoetin Ryan 8,000 UNIT MoWeFr PRN 01/28 0945 AC 01/28 IV 1400 Glycerin 2 SPRAY Q2P PRN 01/28 1600 AC 01/28 PO 1740 Guaifenesin 600 MG Q12 PRN 01/290 AC 01/29 PO 2111 Heparin Sodium 5,000 UNIT Q8 01/26 0100 AC 01/30 (Porcine) SC 0601 Ipratropium [place] 2.5 ML EVERY 4 HRS/AWAKE 01/26 0800 DC 01/29 INH 2005 Metoprolol Tartrate 62.5 MG BID 01/28 1300 AC 01/29 PO 210 Morphine Sulfate 0.5 MG Q8P PRN 01/25 2130 AC IV Multivitamins 1 TAB DAILY 01/25 2300 AC 01/29 PO 0932 Omeprazole 40 MG DAILY AC 01/26 0700 AC 01/30 PO 0605 Oxycodone HCl 5 MG Q6 PRN 01/25 2115 AC 01/29 PO 210 Paricalcitol 5 MCG MoWeFr PRN 01/28 1000 AC 01/28 IV 1254 Polyethylene Glycol 17 GM AT BEDTIME 01/25 2200 AC 01/27 PO 7 Prednisone 30 MG DAILY 01/30 1000 AC PO Prednisone 40 MG DAILY 01/27 1000 DC 01/29 PO 0932 Roflumilast 500 MCG DAILY 01/26 1000 AC 01/29 PO 0935 Senna/Docusate Sodium 1 TAB AT BEDTIME 01/25 2200 AC 01/29 PO 2105 Tiotropium [place] 1 PUF DAILY 01/26 1000 AC 01/29 INH 0936 Results Pertinent Lab Results: Laboratory Tests 01/30 01/30 01/30 0824 0730 0600 Chemistry Sodium (137 - 145 mmol/L) 135 L Cancelled Potassium (3.5 - 5.1 mmol/L) 4.9 Cancelled Chloride (98 - 107 mmol/L) 95 L Cancelled Carbon Dioxide (22 - 30 mmol/L) 27 Cancelled Anion Gap (5 - 16) 13 Cancelled BUN (9 - 20 mg/dL) 75 H Cancelled Creatinine (0.7 - 1.2 mg/dL) 6.8 *H Cancelled Estimated GFR (>60 ml/min) 8 L BUN/Creatinine Ratio (7 - 25 %) 11.0 Cancelled Glucose (65 - 99 mg/dL) 92 Phosphorus (2.5 - 4.5 mg/dL) 4.2 Albumin (3.5 - 5.0 g/dL) 3.2 L Hematology CBC w Diff Cancelled NO MAN DIFF REQ Cancelled WBC (4.8 - 10.8 /CUMM) Cancelled 11.9 H Cancelled RBC (4.70 - 6.10 /CUMM) Cancelled 3.89 L Cancelled Hgb (14.0 - 18.0 G/DL) Cancelled 10.3 L Cancelled Hct (42 - 52 %) Cancelled 33.4 L Cancelled MCV (80.0 - 94.0 FL) Cancelled 85.8 Cancelled MCH (27.0 - 31.0 PG) Cancelled 26.6 L Cancelled RDW (11.5 - 14.5 %) Cancelled 17.6 H Cancelled Plt Count (130 - 400 /CUMM) Cancelled 190 Cancelled MPV (7.4 - 10.4 FL) Cancelled 10.5 H Cancelled Gran % (42.2 - 75.2 %) 79.7 H Lymphocytes % (20.5 - 51.1 %) 12.4 L Monocytes % (1.7 - 9.3 %) 7.4 Eosinophils % (0 - 5 %) 0.2 Basophils % (0.0 - 2.0 %) 0.3 Absolute Granulocytes (1.4 - 6.5 /CUMM) 9.5 H Absolute Lymphocytes (1.2 - 3.4 /CUMM) 1.5 Absolute Monocytes (0.10 - 0.60 /CUMM) 0.9 H Absolute Eosinophils (0.0 - 0.7 /CUMM) 0 Absolute Basophils (0.0 - 0.2 /CUMM) 0 PUBS MCHC (33.0 - 37.0 G/DL) Cancelled 31.0 L Cancelled 01/29 01/28 0609 1028 Chemistry Sodium (137 - 145 mmol/L) 137 135 L Potassium (3.5 - 5.1 mmol/L) 5.4 H 5.5 H Chloride (98 - 107 mmol/L) 97 L 94 L Carbon Dioxide (22 - 30 mmol/L) 24 23 Anion Gap (5 - 16) 16 19 H BUN (9 - 20 mg/dL) 55 H 109 *H Creatinine (0.7 - 1.2 mg/dL) 5.0 H 9.3 *H Estimated GFR (>60 ml/min) 11 L 6 L BUN/Creatinine Ratio (7 - 25 %) 11.0 11.7 Magnesium (1.6 - 2.3 mg/dL) 2.4 H Hematology CBC w Diff NO MAN DIFF REQ MAN DIFF ORDERED WBC (4.8 - 10.8 /CUMM) 9.8 11.2 H RBC (4.70 - 6.10 /CUMM) 4.01 L 3.72 L Hgb (14.0 - 18.0 G/DL) 10.6 L 9.9 L Hct (42 - 52 %) 34.6 L 31.9 L MCV (80.0 - 94.0 FL) 86.3 85.8 MCH (27.0 - 31.0 PG) 26.5 L 26.6 L RDW (11.5 - 14.5 %) 17.6 H 17.5 H Plt Count (130 - 400 /CUMM) 187 187 MPV (7.4 - 10.4 FL) 10.3 10.5 H Gran % (42.2 - 75.2 %) 88.7 H 90.1 H Lymphocytes % (20.5 - 51.1 %) 6.4 L 4.8 L Monocytes % (1.7 - 9.3 %) 4.9 4.9 Eosinophils % (0 - 5 %) 0 0.1 Basophils % (0.0 - 2.0 %) 0 L 0.1 Absolute Granulocytes (1.4 - 6.5 /CUMM) 8.7 H 10.1 H Segmented Neutrophils (42.2 - 75.2 %) 90 H Band Neutrophils (0.0 - 5.0 %) 4 Absolute Lymphocytes (1.2 - 3.4 /CUMM) 0.6 L 0.5 L Lymphocytes (20.5 - 51.1 %) 4 L Monocytes (1.7 - 9.3 %) 2 Absolute Monocytes (0.10 - 0.60 /CUMM) 0.5 0.5 Absolute Eosinophils (0.0 - 0.7 /CUMM) 0 0 Absolute Basophils (0.0 - 0.2 /CUMM) 0 0 Platelet Estimate (ADEQUATE) VERIFIED BY SMEAR Anisocytosis 1+ PUBS MCHC (33.0 - 37.0 G/DL) 30.7 L 31.0 L Imaging/Other Studies: No new imaging Chest X-ray 01/25 EXAM TYPE: RAD - XRY-PORTABLE CHEST XRAY EXAMINATION: XR PORTABLE CHEST CLINICAL INFORMATION: Cough and shortness of breath COMPARISON: 12/10/[address] from 01/08/2017. TECHNIQUE: Portable frontal view of the chest was obtained. FINDINGS: Cardiac leads overlie the chest. The lungs are well expanded. There is a right basilar airspace opacity. No pleural effusion or pneumothorax. The cardiomediastinal silhouette is unchanged, with a tortuous and calcified aorta. Bilateral hilar prominence. IMPRESSION: Right basilar airspace opacity suspicious for pneumonia. This likely correlates to the appearance on prior PET/CT, likely increased. Hilar prominence may be associated with prominent vasculature.
[2017-01-30 11:59] VITALS: BP 138/68
[2017-01-30 16:58] VITALS: BP 138/80
--- NOTE | 2017-01-30 19:01 | PN- Pulmonary ---
Subjective HPI/Critical Care Issues: fatigued s/p dialysis coughing ongoing Objective Current Medications: Current Medications Sig/Zoe Start time Last Medication Dose Route Stop Time Status Admin Acetaminophen 650 MG Q6 PRN 01/25 2115 AC PO Albuterol Sulfate 3 ML EVERY 4 HRS/AWAKE 01/26 0800 AC 01/30 INH 1546 Albuterol Sulfate 3 ML Q4P PRN 01/25 2130 AC INH Albuterol Sulfate 2 PUF DAILY 01/25 212 AC 01/30 INH 1204 Aspirin Buffered 81 MG DAILY 01/25 2300 AC 01/30 PO 1207 Atorvastatin Calcium 40 MG 1700 01/26 1700 AC 01/30 PO 1704 Budesonide/ 2 PUF BID 01/25 220 AC 01/30 Formoterol Fumarate INH 1205 Calcium Acetate 2,001 MG WM 01/26 1700 AC 01/30 PO 1207 Ciprofloxacin 500 MG DAILY 01/28 1122 AC 01/30 PO 02/01 1121 1207 Docusate Sodium 100 MG BID 01/26 2200 AC 01/30 PO 1206 Epoetin Ryan 3,000 UNIT MoWeFr PRN 01/28 1000 AC 01/28 IV 1400 Epoetin Ryan 8,000 UNIT MoWeFr PRN 01/28 0945 AC 01/28 IV 1400 Glycerin 2 SPRAY Q2P PRN 01/28 1600 AC 01/28 PO 1740 Guaifenesin 600 MG Q12 PRN 01/29 2200 AC 01/30 PO 1502 Heparin Sodium 5,000 UNIT Q8 01/26 0100 AC 01/30 (Porcine) SC 1319 Ipratropium [place] 2.5 ML EVERY 4 HRS/AWAKE 01/26 0800 DC 01/29 INH 2005 Metoprolol Tartrate 62.5 MG BID 01/28 1300 AC 01/30 PO 1208 Morphine Sulfate 0.5 MG Q8P PRN 01/25 2130 AC IV Multivitamins 1 TAB DAILY 01/25 230 AC 01/30 PO 1205 Omeprazole 40 MG DAILY AC 01/26 0700 AC 01/30 PO 0605 Oxycodone HCl 5 MG Q6 PRN 01/25 211 AC 01/30 PO 1828 Paricalcitol 5 MCG MoWeFr PRN 01/28 1000 AC 01/28 IV 1254 Patient Medication 1 ED .STK-MED ONE 01/30 1413 DC Teaching ED 01/30 1414 Polyethylene Glycol 17 GM AT BEDTIME 01/250 AC 01/27 PO 2127 Prednisone 30 MG DAILY 01/30 1000 AC 01/30 PO 1206 Roflumilast 500 MCG DAILY 01/26 1000 AC 01/30 PO 1207 Senna/Docusate Sodium 1 TAB AT BEDTIME 01/25 2200 AC 01/29 PO 2105 Tiotropium [place] 1 PUF DAILY 01/26 1000 AC 01/30 INH 1208 Vital Signs & I&O Last 24 Hrs of Vitals and I&O: Vital Signs Date Time Temp Pulse Resp B/P B/P Pulse O2 O2 Flow FiO2 Mean Ox Delivery Rate 01/30 1658 98.6 108 22 138/80 97 Nasal 3.0L Cannula 01/30 1546 96 Nasal 3.0L Cannula 01/30 1257 92 Nasal 2.0L Cannula 01/30 1208 138/68 01/30 1200 Nasal 3.0L Cannula 01/30 1159 138/68 01/30 0000 Non 3.0L ReBreather 01/29 2300 98.0 120 20 134/72 96 Nasal 1.0L Cannula 01/29 2107 120 134/85 Intake & Output 01/30 1600 01/30 0800 01/30 0000 Intake Total 240 120 120 Output Total 4000 Balance -3760 120 120 Intake, Oral 240 120 120 Output, 4000 Dialysate Patient 161 lb 168 lb Weight Weight Standing Scale Chair scale Measurement Method Laboratory Tests 01/30 01/30 01/30 0824 0730 0600 Chemistry Sodium (137 - 145 mmol/L) 135 L Cancelled Potassium (3.5 - 5.1 mmol/L) 4.9 Cancelled Chloride (98 - 107 mmol/L) 95 L Cancelled Carbon Dioxide (22 - 30 mmol/L) 27 Cancelled Anion Gap (5 - 16) 13 Cancelled BUN (9 - 20 mg/dL) 75 H Cancelled Creatinine (0.7 - 1.2 mg/dL) 6.8 *H Cancelled Estimated GFR (>60 ml/min) 8 L BUN/Creatinine Ratio (7 - 25 %) 11.0 Cancelled Glucose (65 - 99 mg/dL) 92 Phosphorus (2.5 - 4.5 mg/dL) 4.2 Albumin (3.5 - 5.0 g/dL) 3.2 L Hematology CBC w Diff Cancelled NO MAN DIFF REQ Cancelled WBC (4.8 - 10.8 /CUMM) Cancelled 11.9 H Cancelled RBC (4.70 - 6.10 /CUMM) Cancelled 3.89 L Cancelled Hgb (14.0 - 18.0 G/DL) Cancelled 10.3 L Cancelled Hct (42 - 52 %) Cancelled 33.4 L Cancelled MCV (80.0 - 94.0 FL) Cancelled 85.8 Cancelled MCH (27.0 - 31.0 PG) Cancelled 26.6 L Cancelled RDW (11.5 - 14.5 %) Cancelled 17.6 H Cancelled Plt Count (130 - 400 /CUMM) Cancelled 190 Cancelled MPV (7.4 - 10.4 FL) Cancelled 10.5 H Cancelled Gran % (42.2 - 75.2 %) 79.7 H Lymphocytes % (20.5 - 51.1 %) 12.4 L Monocytes % (1.7 - 9.3 %) 7.4 Eosinophils % (0 - 5 %) 0.2 Basophils % (0.0 - 2.0 %) 0.3 Absolute Granulocytes (1.4 - 6.5 /CUMM) 9.5 H Absolute Lymphocytes (1.2 - 3.4 /CUMM) 1.5 Absolute Monocytes (0.10 - 0.60 /CUMM) 0.9 H Absolute Eosinophils (0.0 - 0.7 /CUMM) 0 Absolute Basophils (0.0 - 0.2 /CUMM) 0 PUBS MCHC (33.0 - 37.0 G/DL) Cancelled 31.0 L Cancelled 01/29 0609 Chemistry Sodium (137 - 145 mmol/L) 137 Potassium (3.5 - 5.1 mmol/L) 5.4 H Chloride (98 - 107 mmol/L) 97 L Carbon Dioxide (22 - 30 mmol/L) 24 Anion Gap (5 - 16) 16 BUN (9 - 20 mg/dL) 55 H Creatinine (0.7 - 1.2 mg/dL) 5.0 H Estimated GFR (>60 ml/min) 11 L BUN/Creatinine Ratio (7 - 25 %) 11.0 Hematology CBC w Diff NO MAN DIFF REQ WBC (4.8 - 10.8 /CUMM) 9.8 RBC (4.70 - 6.10 /CUMM) 4.01 L Hgb (14.0 - 18.0 G/DL) 10.6 L Hct (42 - 52 %) 34.6 L MCV (80.0 - 94.0 FL) 86.3 MCH (27.0 - 31.0 PG) 26.5 L RDW (11.5 - 14.5 %) 17.6 H Plt Count (130 - 400 /CUMM) 187 MPV (7.4 - 10.4 FL) 10.3 Gran % (42.2 - 75.2 %) 88.7 H Lymphocytes % (20.5 - 51.1 %) 6.4 L Monocytes % (1.7 - 9.3 %) 4.9 Eosinophils % (0 - 5 %) 0 Basophils % (0.0 - 2.0 %) 0 L Absolute Granulocytes (1.4 - 6.5 /CUMM) 8.7 H Absolute Lymphocytes (1.2 - 3.4 /CUMM) 0.6 L Absolute Monocytes (0.10 - 0.60 /CUMM) 0.5 Absolute Eosinophils (0.0 - 0.7 /CUMM) 0 Absolute Basophils (0.0 - 0.2 /CUMM) 0 PUBS MCHC (33.0 - 37.0 G/DL) 30.7 L Impression/Plan Impression/Plan Impression/Plan: Physical Exam General Appearance Alert, Oriented X3, Cooperative, No Acute Distress Skin No Significant Lesion HEENT Atraumatic, PERRLA, EOMI, Mucous Membr. moist/pink Neck Supple, No JVD, no cervical lymphadenopathy Cardiovascular ireegularly irregular. not tachy Lungs Diffusely rhoncherous, particularly in R. lobes. Had some chrackles nad wheezes as well Abdomen tomás tenderness with deep palpation in RUQ. 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, recurrent exacerbation on prednisone, Bronchiectasis due to recurrent infections, dietary noncompliance, ESRD, mild bilateral bronchiectasis, morbid obesity with obstructive sleep apnea , hypertension, previous hyperkalemia, cor pulmonale, on CPAP at home, previous hepatic disease with splenomegaly, moderate to severe pulmonary hypertension, myelodysplastic process, now comes in with * REsolving Fever whitish sputum and fatigue with rapid afib with prob recurrent pseudomonas infection with exacerbation of broncheictasis infection * Afib with rapid rate before now rate controlled, and pt not a great candidate for anticoag * Recent PET scan with significant abnormality. with activity in the colon with anemia needs endoscopy * Mediastinal lymphadenopathy chronic and no pet activity * He also seemed to have a new cervical lymphadenopathy which was PET positive. This needs to be investigated pt to follow with ENT * He does have myelodysplasia and he seems to have increasing splenomegaly and he is followed by oncology * He has had ischemic heart disease and this has been stable recent angiogram was unrevealing per patient, and now with newonset afib * Sig copd with mild bronchiectasis with chronic pseudomonas and s. maltophilia * SIg thoracic aneurysm saccular in nature with no worsening of his aneurysm or any dissection by recent ct * Obstructive sleep apnea on CPAP compliant * Chronic steroid use, hence immunosuppressed * Morbid obesity with noncompliance with diet before now stable, HTN, ESRD on dialysis * Previous history of biliary sepsis obstruction no no evidence suggestive of that with previous stent with pneumobilia RECOMMENDATION cipro for a total of 10 days Prednisone 40 daily and taper in 8 days or a prolonged taper Afib mgt and anticoag plan per cardio ENT evaluation as out pt CT scan of the chest to evaluate subtle abnormalities he has in 3 months Continue oxygen continue all other medications upon dc will start azithro three times a week
[2017-01-31 00:54] VITALS: BP 132/70
--- NOTE | 2017-01-31 07:29 | PN- Housestaff ---
JASON MONTES,[facility] 01/31/17 0729: Subjective Follow-up For: PNA AFIB RVR ESRD Subjective: Seen and examined while seated at recliner. Reports improvement in breathing compared to yesterday. HR is still above goal of less than 110.Denies chest pain. No acute o/n nursing report. Review of Systems Constitutional: Reports: see HPI. Objective Last 24 Hrs of Vital Signs/I&O Vital Signs Date Time Temp Pulse Resp B/P B/P Pulse O2 O2 Flow FiO2 Mean Ox Delivery Rate 01/31 2217 96.7 85 16 130/66 92 CPAP 01/31 215 86 130/66 01/31 2158 86 130/66 01/31 1740 97 Nasal 3.0L Cannula 01/31 1600 95 Nasal 3.0L Cannula 01/31 1530 96.2 98 16 128/78 94 Nasal 3.0L Cannula 01/31 1330 97 Nasal 3.0L Cannula 01/31 1327 98.3 115 20 154/80 01/31 0913 98.3 115 20 154/80 01/31 0800 95 Nasal 3.0L Cannula 01/31 0800 98.3 115 20 154/80 93 Nasal 3.0L Cannula 01/31 0657 94 Nasal 3.0L Cannula Intake & Output 02/01 0800 06/ 0000 01/31 1600 Intake Total 350 480 Output Total 0 Balance 350 480 Intake, IV 0 Intake, Oral 350 480 Number 0 1 Bowel Movements Output, Urine 0 Physical Exam General Appearance: Alert, Oriented X3, Cooperative Cardiovascular: Normal S1, Normal S2 Lungs: Clear to Auscultation, Normal Air Movement Abdomen: Normal Bowel Sounds, Soft, No Tenderness Extremities: No Clubbing, No Cyanosis, No Edema, Normal Pulses, No Tenderness/ Swelling Assessment/Plan Assessment: 71-year-old man with past medical history significant for chronic COPD, oxygen dependent 2 L at baseline, septic sleep apnea, coronary artery disease status post right RCA stenting 10 years ago, pulmonary hypertension, descending thoracic artery aneurysm, end-stage renal disease on dialysis Saturday and Saturday came to emergency department with shortness of breath and dyspnea on exertion which has been going on for the last 3-4 days. Patient went to his dialysis today and was told to go to emergency department. Patient also has increased phlegm for the last 4 days along with more shortness of breath and requiring 3 L than 2 L at baseline. Atrial fibrillation with RVR with h/o CHF Most likely 2/2 possible CHF ( High BNP ) vs ACS (Negative Troponins and No ST changes on EKG) VS vs ? Hyperthyroidism. Current [id number] score 4, Stroke risk was 4.8% per year. Patient is currently not on any anticoagulation as per discussion with picking machine operator. Got IV cardizem push and IV metoprolol on admission. * We will continue metoprolol to 62.5 mg twice a day * Will add Diltiazem 30 mg bid for better control per cardio recc (appreciated) Acute on chronic hypoxic respiratory failure 2/2 COPD exacerbation Patient remained afebrile overnight. Chest x-ray showed right basilar opacity which is not a significant change from the previous imaging. Sputum culture grows Pseudomonas that sensitive to ciprofloxacin. * Continue cipro for a total of 10 days * Continue Prednisone 30 mg taper * Continue CPAP for obstructive sleep apnea Chronic kidney disease on dialysis * Came from dialysis earlier today * Continue with Epogen SQ heparin for DVT prophylaxis renal dialysis diet full code Problem List: 1. ARF 2. Sepsis 3. Atrial fibrillation Pain Ratin Pain Location: none Pain Goal: Remain pain free Pain Plan: per pathway Tomorrow's Labs & Rationales: none-dicharge Consulting Request: Consulting Specialty: Cardiology YOHANA MONTES,[facility] 01/31/17 1103: Attending MD Review Statement Attending Statement Attending MD Statement: examined this patient, discuss w/resident/PA/PIPE FITTER SUPERVISOR MAINTENANCE, agreed w/resident/PA/PIPE FITTER SUPERVISOR MAINTENANCE, discussed with family, reviewed EMR data (avail), discussed with nursing, discussed with case mgmt, reviewed images, amended to note Attending Assessment/Plan: Patient seen and examined, feeling slightly better compared to yesterday but still gets very short of breath with minimal exertion. Patient's heart rate has been running on the higher side overall. Remains in Afib. Vital Signs Date Time Temp Pulse Resp B/P B/P Pulse O2 O2 Flow FiO2 Mean Ox Delivery Rate 01/31 0913 98.3 115 20 154/80 01/31 0800 98.3 115 20 154/80 93 Nasal 3.0L Cannula 01/31 0657 94 Nasal 3.0L Cannula 01/31 0054 98.1 96 20 132/70 94 Nasal Cannula 01/31 0000 Nasal 3.0L Cannula 01/30 2131 93 130/70 01/30 1658 98.6 108 22 138/80 97 Nasal 3.0L Cannula 01/30 1600 97 Nasal 3.0L Cannula 01/30 1546 96 Nasal 3.0L Cannula 01/30 1257 92 Nasal 2.0L Cannula 01/30 1208 138/68 01/30 1200 Nasal 3.0L Cannula 01/30 1159 138/68 on exam; aox3, nad. cv; s1,s2, irregular, + systolic murmur. resp; decreased breath sounds overall. abd; soft, nt, bs+ ext; no edema. Laboratory Tests 01/31 627 Hematology CBC w Diff NO MAN DIFF REQ WBC (4.8 - 10.8 /CUMM) 10.2 RBC (4.70 - 6.10 /CUMM) 3.99 L Hgb (14.0 - 18.0 G/DL) 10.8 L Hct (42 - 52 %) 34.9 L MCV (80.0 - 94.0 FL) 87.5 MCH (27.0 - 31.0 PG) 27.0 RDW (11.5 - 14.5 %) 17.9 H Plt Count (130 - 400 /CUMM) 162 MPV (7.4 - 10.4 FL) 10.0 Gran % (42.2 - 75.2 %) 76.4 H Lymphocytes % (20.5 - 51.1 %) 14.9 L Monocytes % (1.7 - 9.3 %) 8.1 Eosinophils % (0 - 5 %) 0.2 Basophils % (0.0 - 2.0 %) 0.4 Absolute Granulocytes (1.4 - 6.5 /CUMM) 7.8 H Absolute Lymphocytes (1.2 - 3.4 /CUMM) 1.5 Absolute Monocytes (0.10 - 0.60 /CUMM) 0.8 H Absolute Eosinophils (0.0 - 0.7 /CUMM) 0 Absolute Basophils (0.0 - 0.2 /CUMM) 0 PUBS MCHC (33.0 - 37.0 G/DL) 30.8 L A/P; 71-year-old man with past medical history significant for chronic resp failure, COPD, oxygen dependent 2 L at baseline, sleep apnea, coronary artery disease status post right RCA stenting 10 years ago, pulmonary hypertension, descending thoracic artery aneurysm, end-stage renal disease on dialysis Saturday and Saturday admitted with acute/ chronic resp failure, pseudomonas pneumonia, afib with rvr. Heart rate is not optimally controlled. Discussed with Dr. Recio. We will add low-dose Cardizem in addition to the current beta joshua. Continue Cipro for a total of 10 days. Continue prednisone taper. Hemodialysis per nephrology. And regulation on hold per cardiology secondary to anticipated workup for possible colon malignancy. Patient at some point will need colonoscopy once cardio respiratory status stable. Continue all other current medications. DVT px; Hep sq. PG recommending the him but patient reluctant to go. He wants to wait till he's ready for discharge to see how he is feeling to decide if he can go home versus rehabilitation. D/W patient's at bedside.
--- NOTE | 2017-01-31 07:39 | Patient Discharge Instructions ---
Discharge Instructions General Discharge Information Special Instructions: Please follow up with ENT as OP for follow up of cervical lymphadenopathy. please follow up with you PCP within one week of discharge. Please follow up with your lung doctor within one week of discharge. Please repeat Ct chest in 3 months. Acute Coronary Syndrome Inclusion Criteria At DC or during hospital stay patient has or had the following: ACS DIAGNOSIS No Discharge Core Measures Meds if any: Prescribed or Continued at Discharge Meds if any: NOT Prescribed or Continued at Discharge Congestive Heart Failure Inclusion Criteria At DC or during hospital stay patient has or had the following: CHF DIAGNOSIS No Discharge Core Measures Meds if any: Prescribed or Continued at Discharge Meds if any: NOT Prescribed or Continued at Discharge Cerebrovascular accident Inclusion Criteria At DC or during hospital stay patient has or had the following: CVA/TIA Diagnosis No Discharge Core Measures Meds if any: Prescribed or Continued at Discharge Meds if any: NOT Prescribed or Continued at Discharge Venous thromboembolism Inclusion Criteria VTE Diagnosis No VTE Type NONE VTE Confirmed by (Test) NONE Discharge Core Measures - Per Current guidelines, there needs to be overlap - treatment for the first 5 days of Warfarin therapy. - If discharged on Warfarin prior to 5 days of - overlap therapy, the patient will need to be - assessed for post discharge needs including - *Post discharge parental anticoagulation - *Warfarin and/or parental anticoagulation education - *Follow up date to check INR post discharge At least 5 days overlap therapy as Inpatient No Meds if any: Prescribed or Continued at Discharge Note: Overlap Therapy is Warfarin and Anticoagulant Meds if any: NOT Prescribed or Continued at Discharge
[2017-01-31] MEDS ORDERED: AZITHROMYCIN250 M1 PO (07:42)
[2017-01-31 07:58] LABS: ABSOLUTE BASOPHIL COUNT 0 /CUMM (0.0-0.2); ABSOLUTE EOSINOPHIL COUNT 0 /CUMM (0.0-0.7); ABSOLUTE GRANULOCYTE CT 7.8 /CUMM (1.4-6.5); ABSOLUTE LYMPH COUNT 1.5 /CUMM (1.2-3.4); ABSOLUTE MONOCYTE COUNT 0.8 /CUMM (0.10-0.60); BASOPHIL % 0.4 % (0.0-2.0); EOSINOPHIL % 0.2 % (0-5); GRANULOCYTE % 76.4 % (42.2-75.2); HEMATOCRIT 34.9 % (42-52); MEAN CORPUSCULAR HGB CONC 30.8 G/DL (33.0-37.0); MEAN CORPUSCULAR VOLUME 87.5 FL (80.0-94.0); PLATELET COUNT 162 /CUMM (130-400); RBC DISTRIBUTION WIDTH 17.9 % (11.5-14.5); RED BLOOD CELL CT 3.99 /CUMM (4.70-6.10); WHITE BLOOD CELL COUNT 10.2 /CUMM (4.8-10.8)
[2017-01-31 08:00] VITALS: BP 154/80
--- NOTE | 2017-01-31 10:47 | PN- Nephrology ---
See Addendum Assessment/Plan Assessment: ESRD - Dialysis tomorrow. Will change EDW for now to 74kg. SOB - Multifactorial including COPD, ?PNA, bronchiectasis, +/- fluid. He needs to be kept as dry as possible from a dialysis standpoint. EDW to be titrated down. Anemia - Hg 10.8 (at goal). MBD - Phos 4.2 (at goal). Suggestion: -Dialysis tomorrow -EDW 74kg for now -Downtitration of EDW on discharge -Cont TIW Epogen -Cont TIW Paricalcitol -Cont calcium acetate Please call [phone] with ?'s Subjective Subjective: Dialysis yesterday Seen on CPAP today Feeling better Weight had been down to 73kg after dialysis yesterday Objective Vital Signs and I&Os Vital Signs Date Time Temp Pulse Resp B/P B/P Pulse O2 O2 Flow FiO2 Mean Ox Delivery Rate 01/31 0913 98.3 115 20 154/80 01/31 0800 98.3 115 20 154/80 93 Nasal 3.0L Cannula 01/31 0657 94 Nasal 3.0L Cannula 01/31 0054 98.1 96 20 132/70 94 Nasal Cannula 01/31 0000 Nasal 3.0L Cannula 01/30 2131 93 130/70 01/30 1658 98.6 108 22 138/80 97 Nasal 3.0L Cannula 01/30 1600 97 Nasal 3.0L Cannula 01/30 1546 96 Nasal 3.0L Cannula 01/30 1257 92 Nasal 2.0L Cannula 01/30 1208 138/68 01/30 1200 Nasal 3.0L Cannula 01/30 1159 138/68 Intake & Output 01/31 1600 01/31 0400 01/30 1600 01/30 0400 01/29 1600 01/29 0400 Intake Total 400 360 120 620 320 Output Total 4000 0 Balance 400 -3640 120 620 320 Intake, Oral 400 360 120 620 320 Number 1 1 Bowel Movements Output, 4000 Dialysate Output, Urine 0 Patient 162 lb 161 lb 165 lb Weight Weight Standing Scale Standing Scale Standing Scale Measurement Method Physical Exam: -Cont D5 1/2 NS at 100cc/hr as you are - many need to adjust depending on Na ( will likely need more free water) and respiratory status (chest x-ray was underpenetrated but looked wet on presentation) -Hold off on serologic GN work-up -f/u SPEP and KLFLC -Cont desmopressin as per Dr. Foster Please call [phone] with ?'s Current Medications: Current Medications Sig/Zoe Start time Last Medication Dose Route Stop Time Status Admin Acetaminophen 650 MG Q6 PRN 01/25 2115 AC PO Albuterol Sulfate 3 ML EVERY 4 HRS/AWAKE 01/26 0800 AC 01/31 INH 0656 Albuterol Sulfate 3 ML Q4P PRN 01/25 213 AC INH Albuterol Sulfate 2 PUF DAILY 01/25 212 AC 01/30 INH 1204 Aspirin Buffered 81 MG DAILY 01/25 230 AC 01/31 PO 0912 Atorvastatin Calcium 40 MG 1700 01/26 1700 AC 01/30 PO 1704 Budesonide/ 2 PUF BID 01/25 220 AC 01/31 Formoterol Fumarate INH 0911 Calcium Acetate 2,001 MG WM 01/26 1700 AC 01/31 PO 0818 Ciprofloxacin 500 MG DAILY 01/28 1122 AC 01/31 PO 02/01 1121 0912 Docusate Sodium 100 MG BID 01/26 220 AC 01/31 PO 0912 Epoetin Ryan 3,000 UNIT MoWeFr PRN 01/28 1000 AC 01/28 IV 1400 Epoetin Ryan 8,000 UNIT MoWeFr PRN 01/28 0945 AC 01/28 IV 1400 Glycerin 2 SPRAY Q2P PRN 01/28 1600 AC 01/28 PO 1740 Guaifenesin 600 MG Q12 PRN 01/29 220 AC 01/30 PO 1502 Heparin Sodium 5,000 UNIT Q8 01/26 0100 AC 01/31 (Porcine) SC 0612 Metoprolol Tartrate 62.5 MG BID 01/28 1300 AC 01/31 PO 0913 Morphine Sulfate 0.5 MG Q8P PRN 01/25 2130 AC IV Multivitamins 1 TAB DAILY 01/25 230 AC 01/31 PO 0912 Omeprazole 40 MG DAILY AC 01/26 0700 AC 01/31 PO 0612 Oxycodone HCl 5 MG Q6 PRN 01/25 211 AC 01/30 PO 1828 Paricalcitol 5 MCG MoWeFr PRN 01/28 1000 AC 01/28 IV 1254 Patient Medication 1 ED .STK-MED ONE 01/30 1413 DC Teaching ED 01/30 1414 Polyethylene Glycol 17 GM AT BEDTIME 01/25 2200 AC 01/27 PO 2127 Prednisone 40 MG DAILY 01/31 1000 CAN PO Prednisone 30 MG ONCE ONE 01/31 09 DC 01/31 PO 01/31 0901 0912 Prednisone 30 MG DAILY 01/30 1000 DC 01/30 PO 1206 Roflumilast 500 MCG DAILY 01/26 1000 AC 01/31 PO 0912 Senna/Docusate Sodium 1 TAB AT BEDTIME 01/250 AC 01/29 PO 2105 Tiotropium [place] 1 PUF DAILY 01/26 1000 AC 01/31 INH 0911 Results Pertinent Lab Results: Laboratory Tests 01/31 01/30 0627 0824 Hematology CBC w Diff NO MAN DIFF REQ Cancelled WBC (4.8 - 10.8 /CUMM) 10.2 Cancelled RBC (4.70 - 6.10 /CUMM) 3.99 L Cancelled Hgb (14.0 - 18.0 G/DL) 10.8 L Cancelled Hct (42 - 52 %) 34.9 L Cancelled MCV (80.0 - 94.0 FL) 87.5 Cancelled MCH (27.0 - 31.0 PG) 27.0 Cancelled RDW (11.5 - 14.5 %) 17.9 H Cancelled Plt Count (130 - 400 /CUMM) 162 Cancelled MPV (7.4 - 10.4 FL) 10.0 Cancelled Gran % (42.2 - 75.2 %) 76.4 H Lymphocytes % (20.5 - 51.1 %) 14.9 L Monocytes % (1.7 - 9.3 %) 8.1 Eosinophils % (0 - 5 %) 0.2 Basophils % (0.0 - 2.0 %) 0.4 Absolute Granulocytes (1.4 - 6.5 /CUMM) 7.8 H Absolute Lymphocytes (1.2 - 3.4 /CUMM) 1.5 Absolute Monocytes (0.10 - 0.60 /CUMM) 0.8 H Absolute Eosinophils (0.0 - 0.7 /CUMM) 0 Absolute Basophils (0.0 - 0.2 /CUMM) 0 PUBS MCHC (33.0 - 37.0 G/DL) 30.8 L Cancelled 01/30 01/30 0730 0600 Chemistry Sodium (137 - 145 mmol/L) 135 L Cancelled Potassium (3.5 - 5.1 mmol/L) 4.9 Cancelled Chloride (98 - 107 mmol/L) 95 L Cancelled Carbon Dioxide (22 - 30 mmol/L) 27 Cancelled Anion Gap (5 - 16) 13 Cancelled BUN (9 - 20 mg/dL) 75 H Cancelled Creatinine (0.7 - 1.2 mg/dL) 6.8 *H Cancelled Estimated GFR (>60 ml/min) 8 L BUN/Creatinine Ratio (7 - 25 %) 11.0 Cancelled Glucose (65 - 99 mg/dL) 92 Phosphorus (2.5 - 4.5 mg/dL) 4.2 Albumin (3.5 - 5.0 g/dL) 3.2 L Hematology CBC w Diff NO MAN DIFF REQ Cancelled WBC (4.8 - 10.8 /CUMM) 11.9 H Cancelled RBC (4.70 - 6.10 /CUMM) 3.89 L Cancelled Hgb (14.0 - 18.0 G/DL) 10.3 L Cancelled Hct (42 - 52 %) 33.4 L Cancelled MCV (80.0 - 94.0 FL) 85.8 Cancelled MCH (27.0 - 31.0 PG) 26.6 L Cancelled RDW (11.5 - 14.5 %) 17.6 H Cancelled Plt Count (130 - 400 /CUMM) 190 Cancelled MPV (7.4 - 10.4 FL) 10.5 H Cancelled Gran % (42.2 - 75.2 %) 79.7 H Lymphocytes % (20.5 - 51.1 %) 12.4 L Monocytes % (1.7 - 9.3 %) 7.4 Eosinophils % (0 - 5 %) 0.2 Basophils % (0.0 - 2.0 %) 0.3 Absolute Granulocytes (1.4 - 6.5 /CUMM) 9.5 H Absolute Lymphocytes (1.2 - 3.4 /CUMM) 1.5 Absolute Monocytes (0.10 - 0.60 /CUMM) 0.9 H Absolute Eosinophils (0.0 - 0.7 /CUMM) 0 Absolute Basophils (0.0 - 0.2 /CUMM) 0 PUBS MCHC (33.0 - 37.0 G/DL) 31.0 L Cancelled 05/30 0609 Chemistry Sodium (137 - 145 mmol/L) 137 Potassium (3.5 - 5.1 mmol/L) 5.4 H Chloride (98 - 107 mmol/L) 97 L Carbon Dioxide (22 - 30 mmol/L) 24 Anion Gap (5 - 16) 16 BUN (9 - 20 mg/dL) 55 H Creatinine (0.7 - 1.2 mg/dL) 5.0 H Estimated GFR (>60 ml/min) 11 L BUN/Creatinine Ratio (7 - 25 %) 11.0 Hematology CBC w Diff NO MAN DIFF REQ WBC (4.8 - 10.8 /CUMM) 9.8 RBC (4.70 - 6.10 /CUMM) 4.01 L Hgb (14.0 - 18.0 G/DL) 10.6 L Hct (42 - 52 %) 34.6 L MCV (80.0 - 94.0 FL) 86.3 MCH (27.0 - 31.0 PG) 26.5 L RDW (11.5 - 14.5 %) 17.6 H Plt Count (130 - 400 /CUMM) 187 MPV (7.4 - 10.4 FL) 10.3 Gran % (42.2 - 75.2 %) 88.7 H Lymphocytes % (20.5 - 51.1 %) 6.4 L Monocytes % (1.7 - 9.3 %) 4.9 Eosinophils % (0 - 5 %) 0 Basophils % (0.0 - 2.0 %) 0 L Absolute Granulocytes (1.4 - 6.5 /CUMM) 8.7 H Absolute Lymphocytes (1.2 - 3.4 /CUMM) 0.6 L Absolute Monocytes (0.10 - 0.60 /CUMM) 0.5 Absolute Eosinophils (0.0 - 0.7 /CUMM) 0 Absolute Basophils (0.0 - 0.2 /CUMM) 0 PUBS MCHC (33.0 - 37.0 G/DL) 30.7 L Imaging/Other Studies: None new
[2017-01-31 15:30] VITALS: BP 128/78
--- NOTE | 2017-01-31 21:42 | PN- Pulmonary ---
Subjective HPI/Critical Care Issues: Doing ok afebrile vss Objective Current Medications: Current Medications Sig/Zoe Start time Last Medication Dose Route Stop Time Status Admin Acetaminophen 650 MG Q6 PRN 01/25 2115 AC PO Albuterol Sulfate 3 ML EVERY 4 HRS/AWAKE 01/26 0800 AC 01/31 INH 2114 Albuterol Sulfate 3 ML Q4P PRN 01/25 2130 AC INH Albuterol Sulfate 2 PUF DAILY 01/25 212 AC 01/30 INH 1204 Aspirin Buffered 81 MG DAILY 01/25 230 AC 01/31 PO 0912 Atorvastatin Calcium 40 MG 1700 01/26 1700 AC 01/31 PO 1803 Budesonide/ 2 PUF BID 01/25 220 AC 01/31 Formoterol Fumarate INH 0911 Calcium Acetate 2,001 MG WM 01/26 170 AC 01/31 PO 1802 Ciprofloxacin 500 MG DAILY 01/28 1122 AC 01/31 PO 02/01 1121 0912 Diltiazem HCl 30 MG BID 01/31 1106 AC 01/31 PO 1327 Docusate Sodium 100 MG BID 01/26 220 AC 01/31 PO 0912 Epoetin Ryan 3,000 UNIT MoWeFr PRN 01/28 1000 AC 01/28 IV 1400 Epoetin Ryan 8,000 UNIT MoWeFr PRN 01/28 0945 AC 01/28 IV 1400 Glycerin 2 SPRAY Q2P PRN 01/28 1600 AC 01/28 PO 1740 Guaifenesin 600 MG Q12 PRN 01/29 220 AC 01/30 PO 1502 Heparin Sodium 5,000 UNIT Q8 01/26 0100 AC 01/31 (Porcine) SC 1327 Metoprolol Tartrate 62.5 MG BID 01/28 1300 AC 01/31 PO 0913 Morphine Sulfate 0.5 MG Q8P PRN 01/25 2130 AC IV Multivitamins 1 TAB DAILY 01/25 230 AC 01/31 PO 0912 Omeprazole 40 MG DAILY AC 01/26 07 AC 01/31 PO 0612 Oxycodone HCl 5 MG Q6 PRN 01/25 211 AC 01/30 PO 1828 Paricalcitol 5 MCG MoWeFr PRN 01/28 1000 AC 01/28 IV 1254 Polyethylene Glycol 17 GM AT BEDTIME 01/25 2200 AC 01/27 PO 212 Prednisone 40 MG DAILY 01/31 1000 CAN PO Prednisone 30 MG ONCE ONE 01/31 0900 DC 01/31 PO 01/31 0901 0912 Prednisone 30 MG DAILY 01/30 1000 DC 01/30 PO 1206 Roflumilast 500 MCG DAILY 01/26 1000 AC 01/31 PO 0912 Senna/Docusate Sodium 1 TAB AT BEDTIME 01/25 2200 AC 01/29 PO 2105 Tiotropium [place] 1 PUF DAILY 01/26 1000 AC 01/31 INH 0911 Vital Signs & I&O Last 24 Hrs of Vitals and I&O: Vital Signs Date Time Temp Pulse Resp B/P B/P Pulse O2 O2 Flow FiO2 Mean Ox Delivery Rate 01/31 1740 97 Nasal 3.0L Cannula 01/31 1530 96.2 98 16 128/78 94 Nasal 3.0L Cannula 01/31 1330 97 Nasal 3.0L Cannula 01/31 1327 98.3 115 20 154/80 01/31 0913 98.3 115 20 154/80 01/31 0800 95 Nasal 3.0L Cannula 01/31 0800 98.3 115 20 154/80 93 Nasal 3.0L Cannula 01/31 0657 94 Nasal 3.0L Cannula 01/31 0054 98.1 96 20 132/70 94 Nasal Cannula 01/31 0000 Nasal 3.0L Cannula Intake & Output 01/31 1600 01/31 0800 01/31 0000 Intake Total 480 400 Output Total Balance 480 400 Intake, Oral 480 400 Number 1 1 Bowel Movements Patient 162 lb Weight Weight Standing Scale Measurement Method Impression/Plan Impression/Plan Impression/Plan: Physical Exam General Appearance Alert, Oriented X3, Cooperative, No Acute Distress Skin No Significant Lesion HEENT Atraumatic, PERRLA, EOMI, Mucous Membr. moist/pink Neck Supple, No JVD, no cervical lymphadenopathy Cardiovascular ireegularly irregular. not tachy Lungs Diffusely rhoncherous, particularly in R. lobes. Had some chrackles nad wheezes as well Abdomen tomás tenderness with deep palpation in RUQ. 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, recurrent exacerbation on prednisone, Bronchiectasis due to recurrent infections, dietary noncompliance, ESRD, mild bilateral bronchiectasis, morbid obesity with obstructive sleep apnea , hypertension, previous hyperkalemia, cor pulmonale, on CPAP at home, previous hepatic disease with splenomegaly, moderate to severe pulmonary hypertension, myelodysplastic process, now comes in with * REsolving Fever whitish sputum and fatigue with rapid afib with prob recurrent pseudomonas infection with exacerbation of broncheictasis infection * Afib with rapid rate before now rate controlled, and pt not a great candidate for anticoag * Recent PET scan with significant abnormality. with activity in the colon with anemia needs endoscopy * Mediastinal lymphadenopathy chronic and no pet activity * He also seemed to have a new cervical lymphadenopathy which was PET positive. This needs to be investigated pt to follow with ENT * He does have myelodysplasia and he seems to have increasing splenomegaly and he is followed by oncology * He has had ischemic heart disease and this has been stable recent angiogram was unrevealing per patient, and now with newonset afib * Sig copd with mild bronchiectasis with chronic pseudomonas and s. maltophilia * SIg thoracic aneurysm saccular in nature with no worsening of his aneurysm or any dissection by recent ct * Obstructive sleep apnea on CPAP compliant * Chronic steroid use, hence immunosuppressed * Morbid obesity with noncompliance with diet before now stable, HTN, ESRD on dialysis * Previous history of biliary sepsis obstruction no no evidence suggestive of that with previous stent with pneumobilia RECOMMENDATION cipro for a total of 10 days Prednisone 40 daily and taper in 7 days or a prolonged taper Afib mgt and anticoag plan per cardio ENT evaluation as out pt CT scan of the chest to evaluate subtle abnormalities he has in 3 months Continue oxygen continue all other medications upon dc will start azithro three times a week
[2017-01-31 22:17] VITALS: BP 130/66
--- NOTE | 2017-02-01 07:37 | PN- Housestaff ---
JASON MONTES,LETI 02/01/17 0736: Subjective Follow-up For: PNA AFIB RVR ESRD Subjective: Seen and examined at bedside. Reports marked improvement in his breathing. Denies chest pain/palpitation,fever/chills,nausea/vomiting, cough, or sputum production. No acute o/n event reported by nursing staff. Review of Systems Constitutional: Reports: see HPI. Objective Last 24 Hrs of Vital Signs/I&O Vital Signs Date Time Temp Pulse Resp B/P B/P Pulse O2 O2 Flow FiO2 Mean Ox Delivery Rate 02/01 1308 101 136/66 / 1306 101 136/66 02/01 0828 98.5 101 19 177/78 94 Nasal 3.0L Cannula 02/01 0805 96 Nasal 3.0L Cannula 02/01 0000 Room Air 01/31 2217 96.7 85 16 130/66 92 CPAP 01/31 2158 86 130/66 01/31 2158 86 130/66 Intake & Output 02/01 1600 02/01 0800 02/01 0000 Intake Total 200 350 Output Total 0 Balance 200 350 Intake, IV 0 Intake, Oral 200 350 Number 0 Bowel Movements Output, Urine 0 Patient 71.838 kg 74.406 kg Weight Physical Exam General Appearance: Alert, Oriented X3, Cooperative Other Physical Findings: Cardiovascular: Normal S1, Normal S2 Lungs: Clear to Auscultation, Normal Air Movement Abdomen: Normal Bowel Sounds, Soft, No Tenderness Extremities: No Clubbing, No Cyanosis, No Edema, Normal Pulses, No Tenderness/ Swelling Current Medications: Current Medications Sig/Zoe Start time Last Medication Dose Route Stop Time Status Admin Acetaminophen 650 MG Q6 PRN 01/25 2115 DCD PO Albuterol Sulfate 3 ML EVERY 4 HRS/AWAKE 01/26 08 DCD 02/01 INH 1352 Albuterol Sulfate 3 ML Q4P PRN 01/25 2130 DCD INH Albuterol Sulfate 2 PUF DAILY 01/25 2121 DCD 01/30 INH 1204 Aspirin Buffered 81 MG DAILY 01/25 2300 DCD 02/01 PO 1307 Atorvastatin Calcium 40 MG 1700 01/26 1700 DCD 01/31 PO 1803 Budesonide/ 2 PUF BID 01/25 2200 DCD 02/01 Formoterol Fumarate INH 1307 Calcium Acetate 2,001 MG WM 01/26 170 DCD 02/01 PO 1305 Ciprofloxacin 500 MG DAILY 01/28 1122 DC 06 PO 02/01 1121 1306 Diltiazem HCl 30 MG BID 01/31 1106 DCD 02/01 PO 1306 Docusate Sodium 100 MG BID 01/26 2200 DCD 02/01 PO 1307 Epoetin Ryan 3,000 UNIT MoWeFr PRN 01/28 1000 DCD 01/28 IV 1400 Epoetin Ryan 8,000 UNIT MoWeFr PRN 01/28 0945 DCD 01/28 IV 1400 Glycerin 2 SPRAY Q2P PRN 01/28 1600 DCD 01/28 PO 1740 Guaifenesin 600 MG Q12 PRN 01/29 2200 DCD 01/30 PO 1502 Heparin Sodium 5,000 UNIT Q8 01/26 0100 DCD 02/01 (Porcine) SC 1307 Metoprolol Tartrate 62.5 MG BID 01/28 1300 DCD 02/01 PO 1308 Morphine Sulfate 0.5 MG Q8P PRN 01/25 2130 DCD IV Multivitamins 1 TAB DAILY 01/25 2300 DCD 02/01 PO 1307 Omeprazole 40 MG DAILY AC 01/26 0700 DCD 01/31 PO 0612 Oxycodone HCl 5 MG Q6 PRN 01/25 2115 DCD 02/01 PO 1312 Paricalcitol 5 MCG MoWeFr PRN 01/28 1000 DCD 01/28 IV 1254 Patient Medication 1 ED .STK-MED ONE 02/01 1424 PR Teaching ED 02/01 1425 Polyethylene Glycol 17 GM AT BEDTIME 01/25 2200 DCD 01/27 PO 2127 Roflumilast 500 MCG DAILY 01/26 1000 DCD 02/01 PO 1306 Senna/Docusate Sodium 1 TAB AT BEDTIME 01/25 2200 DCD 01/29 PO 2105 Tiotropium [place] 1 PUF DAILY 01/26 1000 DCD 02/01 INH 1307 Last 24 Hrs of Lab/Jesus Results Last 24 Hrs of Labs/Mics: Laboratory Tests 02/01/17 0840: Anion Gap 12, Estimated GFR 8 L, BUN/Creatinine Ratio 10.8, Glucose 138 H, Phosphorus 3.7, Albumin 3.1 L, CBC w Diff NO MAN DIFF REQ, RBC 3.95 L, MCV 86.5, MCH 26.7 L, RDW 17.8 H, MPV 10.0, Gran % 82.6 H, Lymphocytes % 12.6 L, Monocytes % 3.9, Eosinophils % 0.9, Basophils % 0 L, Absolute Granulocytes 10.4 H, Absolute Lymphocytes 1.6, Absolute Monocytes 0.5, Absolute Eosinophils 0.1, Absolute Basophils 0, PUBS MCHC 30.8 L, Hep Bs Antigen NONREACTIVE, Hep Bs Antibody NONREACTIVE Assessment/Plan Assessment: 71-year-old man with past medical history significant for chronic COPD, oxygen dependent 2 L at baseline, septic sleep apnea, coronary artery disease status post right RCA stenting 10 years ago, pulmonary hypertension, descending thoracic artery aneurysm, end-stage renal disease on dialysis Saturday and Saturday came to emergency department with shortness of breath and dyspnea on exertion which has been going on for the last 3-4 days. Patient went to his dialysis today and was told to go to emergency department. Patient also has increased phlegm for the last 4 days along with more shortness of breath and requiring 3 L than 2 L at baseline. Atrial fibrillation with RVR with h/o CHF Most likely 2/2 possible CHF ( High BNP ) vs ACS (Negative Troponins and No ST changes on EKG) VS vs ? Hyperthyroidism. Current [id number] score 4, Stroke risk was 4.8% per year. Patient is currently not on any anticoagulation as per discussion with podopediatrician. Got IV cardizem push and IV metoprolol on admission. * We will continue metoprolol to 62.5 mg twice a day * Will continue 30 mg bid for better control per cardio recc (appreciated) Acute on chronic hypoxic respiratory failure 2/2 COPD exacerbation Patient remained afebrile overnight. Chest x-ray showed right basilar opacity which is not a significant change from the previous imaging. Sputum culture grows Pseudomonas that sensitive to ciprofloxacin. * Continue cipro for a total of 10 days * Continue Prednisone taper * Continue CPAP for obstructive sleep apnea Chronic kidney disease on dialysis * Came from dialysis earlier today * Continue with Epogen SQ heparin for DVT prophylaxis renal dialysis diet full code Problem List: 1. Atrial fibrillation 2. Pneumonia 3. Sepsis Pain Ratin Pain Location: none Pain Goal: Remain pain free Pain Plan: none-dicharge Tomorrow's Labs & Rationales: none Consulting Request: Consulting Specialty: Cardiology YOHANA MONTES,LIANNA 02/01/17 1139: Attending MD Review Statement Attending Statement Attending MD Statement: examined this patient, discuss w/resident/PA/RAT EXTERMINATOR, agreed w/resident/PA/RAT EXTERMINATOR, reviewed EMR data (avail), discussed with nursing, discussed with case mgmt, reviewed images, amended to note Attending Assessment/Plan: Patient seen and examined at dialysis, he was overall feeling a little bit better. He thinks that his breathing has improved some. He does not want to go to rehabilitation and wants to go home. Vital Signs Date Time Temp Pulse Resp B/P B/P Pulse O2 O2 Flow FiO2 Mean Ox Delivery Rate 02/01 0828 98.5 101 19 177/78 94 Nasal 3.0L Cannula 02/01 0000 Room Air 01/31 2217 96.7 85 16 130/66 92 CPAP 01/31 2158 86 130/66 01/31 2158 86 130/66 01/31 1740 97 Nasal 3.0L Cannula 01/31 1600 95 Nasal 3.0L Cannula 01/31 1530 96.2 98 16 128/78 94 Nasal 3.0L Cannula 01/31 1330 97 Nasal 3.0L Cannula 01/31 1327 98.3 115 20 154/80 on exam; aox3, nad. cv; s1,s2, rrr, + systolic murmur. resp; clear abd; soft, nt, bs+ ext; no edema. Laboratory Tests 02/01 0840 Chemistry Sodium (137 - 145 mmol/L) 134 L Potassium (3.5 - 5.1 mmol/L) 4.4 Chloride (98 - 107 mmol/L) 95 L Carbon Dioxide (22 - 30 mmol/L) 27 Anion Gap (5 - 16) 12 BUN (9 - 20 mg/dL) 77 H Creatinine (0.7 - 1.2 mg/dL) 7.1 *H Estimated GFR (>60 ml/min) 8 L BUN/Creatinine Ratio (7 - 25 %) 10.8 Glucose (65 - 99 mg/dL) 138 H Phosphorus (2.5 - 4.5 mg/dL) 3.7 Albumin (3.5 - 5.0 g/dL) 3.1 L Hematology CBC w Diff NO MAN DIFF REQ WBC (4.8 - 10.8 /CUMM) 12.5 H RBC (4.70 - 6.10 /CUMM) 3.95 L Hgb (14.0 - 18.0 G/DL) 10.5 L Hct (42 - 52 %) 34.1 L MCV (80.0 - 94.0 FL) 86.5 MCH (27.0 - 31.0 PG) 26.7 L RDW (11.5 - 14.5 %) 17.8 H Plt Count (130 - 400 /CUMM) 164 MPV (7.4 - 10.4 FL) 10.0 Gran % (42.2 - 75.2 %) 82.6 H Lymphocytes % (20.5 - 51.1 %) 12.6 L Monocytes % (1.7 - 9.3 %) 3.9 Eosinophils % (0 - 5 %) 0.9 Basophils % (0.0 - 2.0 %) 0 L Absolute Granulocytes (1.4 - 6.5 /CUMM) 10.4 H Absolute Lymphocytes (1.2 - 3.4 /CUMM) 1.6 Absolute Monocytes (0.10 - 0.60 /CUMM) 0.5 Absolute Eosinophils (0.0 - 0.7 /CUMM) 0.1 Absolute Basophils (0.0 - 0.2 /CUMM) 0 PUBS MCHC (33.0 - 37.0 G/DL) 30.8 L Serology Hep Bs Antigen (NONREACTIVE) NONREACTIVE Hep Bs Antibody (NONREACTIVE) NONREACTIVE A/P; 71-year-old man with past medical history significant for chronic resp failure, COPD, oxygen dependent 2 L at baseline, sleep apnea, coronary artery disease status post right RCA stenting 10 years ago, pulmonary hypertension, descending thoracic artery aneurysm, end-stage renal disease on dialysis Saturday and Saturday admitted with acute/ chronic resp failure, pseudomonas pneumonia, afib with rvr we added low-dose Cardizem yesterday in addition to his current dose of beta joshua. Heart rate seems to be better controlled. Patient overall feeling better. After the dialysis, patient will be discharged today. Although PT recommends rehabilitation he does not want to go to rehabilitation. I will discuss with case management about his disposition. We will continue the current medications. Will follow cardiology and pulmonology recommendations. Patient will need an outpatient follow-up with his primary care doctor, cardiology, pulmonology and ENT. At some point he will also require an outpatient colonoscopy when his cardio respiratory status is better. He will also need to follow-up with nephrology for his hemodialysis.
[2017-02-01 08:28] VITALS: BP 177/78
[2017-02-01] MEDS ORDERED: SPIRIVA18 MCG INH (08:56)
[2017-02-01 09:13] LABS: ABSOLUTE BASOPHIL COUNT 0 /CUMM (0.0-0.2); ABSOLUTE EOSINOPHIL COUNT 0.1 /CUMM (0.0-0.7); ABSOLUTE GRANULOCYTE CT 10.4 /CUMM (1.4-6.5); ABSOLUTE LYMPH COUNT 1.6 /CUMM (1.2-3.4); ABSOLUTE MONOCYTE COUNT 0.5 /CUMM (0.10-0.60); BASOPHIL % 0 % (0.0-2.0); EOSINOPHIL % 0.9 % (0-5); GRANULOCYTE % 82.6 % (42.2-75.2); HEMATOCRIT 34.1 % (42-52); MEAN CORPUSCULAR HGB 26.7 PG (27.0-31.0); MEAN CORPUSCULAR HGB CONC 30.8 G/DL (33.0-37.0); MEAN CORPUSCULAR VOLUME 86.5 FL (80.0-94.0); PLATELET COUNT 164 /CUMM (130-400); RBC DISTRIBUTION WIDTH 17.8 % (11.5-14.5); RED BLOOD CELL CT 3.95 /CUMM (4.70-6.10); WHITE BLOOD CELL COUNT 12.5 /CUMM (4.8-10.8)
[2017-02-01] MEDS ORDERED: CARDIZEM30 M1 PO (09:39)
--- NOTE | 2017-02-01 10:39 | PN- Pulmonary ---
Subjective HPI/Critical Care Issues: Sleeping and undergoing dialysis Objective Current Medications: Current Medications Sig/Zoe Start time Last Medication Dose Route Stop Time Status Admin Acetaminophen 650 MG Q6 PRN 01/25 2115 AC PO Albuterol Sulfate 3 ML EVERY 4 HRS/AWAKE 01/26 0800 AC 02/01 INH 0753 Albuterol Sulfate 3 ML Q4P PRN 01/25 2130 AC INH Albuterol Sulfate 2 PUF DAILY 01/25 2121 AC 01/30 INH 1204 Aspirin Buffered 81 MG DAILY 01/25 2300 AC 01/31 PO 0912 Atorvastatin Calcium 40 MG 1700 01/26 1700 AC 01/31 PO 1803 Budesonide/ 2 PUF BID 01/25 220 AC 01/31 Formoterol Fumarate INH 2159 Calcium Acetate 2,001 MG WM 01/26 170 AC 01/31 PO 1802 Ciprofloxacin 500 MG DAILY 01/28 1122 AC 01/31 PO 02/01 1121 0912 Diltiazem HCl 30 MG BID 01/31 1106 AC 01/31 PO 2158 Docusate Sodium 100 MG BID 01/26 220 AC 01/31 PO 2156 Epoetin Ryan 3,000 UNIT MoWeFr PRN 01/28 1000 AC 01/28 IV 1400 Epoetin [place] 8,000 UNIT MoWeFr PRN 01/28 0945 AC 01/28 IV 1400 Glycerin 2 SPRAY Q2P PRN 01/28 1600 AC 01/28 PO 1740 Guaifenesin 600 MG Q12 PRN 01/29 2200 AC 01/30 PO 1502 Heparin Sodium 5,000 UNIT Q8 01/26 0100 AC 02/01 (Porcine) SC 0536 Metoprolol Tartrate 62.5 MG BID 01/28 1300 AC 01/31 PO 2158 Morphine Sulfate 0.5 MG Q8P PRN 01/25 2130 AC IV Multivitamins 1 TAB DAILY 01/25 2300 AC 01/31 PO 0912 Omeprazole 40 MG DAILY AC 01/26 0700 AC 01/31 PO 0612 Oxycodone HCl 5 MG Q6 PRN 01/25 2115 AC 01/30 PO 1828 Paricalcitol 5 MCG MoWeFr PRN 01/28 1000 AC 01/28 IV 1254 Polyethylene Glycol 17 GM AT BEDTIME 01/25 2200 AC 01/27 PO 212 Roflumilast 500 MCG DAILY 01/26 1000 AC 01/31 PO 0912 Senna/Docusate Sodium 1 TAB AT BEDTIME 01/25 2200 AC 01/29 PO 2105 Tiotropium [place] 1 PUF DAILY 01/26 1000 AC 01/31 INH 0911 Vital Signs & I&O Last 24 Hrs of Vitals and I&O: Vital Signs Date Time Temp Pulse Resp B/P B/P Pulse O2 O2 Flow FiO2 Mean Ox Delivery Rate 02/01 0828 98.5 101 19 177/78 94 Nasal 3.0L Cannula 02/01 0000 Room Air 01/31 2217 96.7 85 16 130/66 92 CPAP 01/31 2158 86 130/66 01/31 2158 86 130/66 01/31 1740 97 Nasal 3.0L Cannula 01/31 1600 95 Nasal 3.0L Cannula 01/31 1530 96.2 98 16 128/78 94 Nasal 3.0L Cannula 01/31 1330 97 Nasal 3.0L Cannula 01/31 1327 98.3 115 20 154/80 Intake & Output 02/01 1600 02/01 0800 02/01 0000 Intake Total 200 350 Output Total 0 Balance 200 350 Intake, IV 0 Intake, Oral 200 350 Number 0 Bowel Movements Output, Urine 0 Patient 164 lb Weight Impression/Plan Impression/Plan Impression/Plan: Physical Exam General Appearance Alert, Oriented X3, Cooperative, No Acute Distress Skin No Significant Lesion HEENT Atraumatic, PERRLA, EOMI, Mucous Membr. moist/pink Neck Supple, No JVD, no cervical lymphadenopathy Cardiovascular ireegularly irregular. not tachy Lungs Diffusely rhoncherous, particularly in R. lobes. Had some chrackles nad wheezes as well Abdomen tomás tenderness with deep palpation in RUQ. 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, recurrent exacerbation on prednisone, Bronchiectasis due to recurrent infections, dietary noncompliance, ESRD, mild bilateral bronchiectasis, morbid obesity with obstructive sleep apnea , hypertension, previous hyperkalemia, cor pulmonale, on CPAP at home, previous hepatic disease with splenomegaly, moderate to severe pulmonary hypertension, myelodysplastic process, now comes in with * REsolved Fever whitish sputum and fatigue with rapid afib with prob recurrent pseudomonas infection with exacerbation of broncheictasis infection * Afib with rapid rate before now rate controlled, and pt not a great candidate for anticoag * Recent PET scan with significant abnormality. with activity in the colon with anemia needs endoscopy * Mediastinal lymphadenopathy chronic and no pet activity * He also seemed to have a new cervical lymphadenopathy which was PET positive. This needs to be investigated pt to follow with ENT * He does have myelodysplasia and he seems to have increasing splenomegaly and he is followed by oncology * He has had ischemic heart disease and this has been stable recent angiogram was unrevealing per patient, and now with newonset afib * Sig copd with mild bronchiectasis with chronic pseudomonas and s. maltophilia * SIg thoracic aneurysm saccular in nature with no worsening of his aneurysm or any dissection by recent ct * Obstructive sleep apnea on CPAP compliant * Chronic steroid use, hence immunosuppressed * Morbid obesity with noncompliance with diet before now stable, HTN, ESRD on dialysis * Previous history of biliary sepsis obstruction no no evidence suggestive of that with previous stent with pneumobilia RECOMMENDATION cipro for a total of 10 days Prednisone 40 daily and taper in 6 days or a prolonged taper Afib mgt and anticoag plan per cardio ENT evaluation as out pt CT scan of the chest to evaluate subtle abnormalities he has in 3 months Continue oxygen continue all other medications upon dc will start azithro three times a week Ok to dc soon
[2017-02-01] MEDS ORDERED: AZITHROMYCIN250 M1 PO (10:51)
--- NOTE | 2017-02-01 11:27 | PN- Nephrology ---
Assessment/Plan Assessment: ESRD - Dialysis today. Will get weight after dialysis today and add 1-1.5kg and that will be his new EDW as an outpatient. SOB - Multifactorial including COPD, ?PNA, bronchiectasis, +/- fluid. He needs to be kept as dry as possible from a dialysis standpoint. EDW to be titrated down. Anemia - Hg at goal. MBD - Phos at goal. Suggestion: -Dialysis today -Downtitration of EDW -Cont TIW Epogen -Cont TIW Paricalcitol -Cont calcium acetate Please call [phone] with ?'s Subjective Subjective: Pt seen and examined on dialysis Pt feeling better 74.4kg today Objective Vital Signs and I&Os Vital Signs Date Time Temp Pulse Resp B/P B/P Pulse O2 O2 Flow FiO2 Mean Ox Delivery Rate 02/02 828 98.5 101 19 177/78 94 Nasal 3.0L Cannula 02/01 0000 Room Air 01/31 2217 96.7 85 16 130/66 92 CPAP 01/31 2158 86 130/66 01/31 2158 86 130/66 01/31 1740 97 Nasal 3.0L Cannula 01/31 1600 95 Nasal 3.0L Cannula 01/31 1530 96.2 98 16 128/78 94 Nasal 3.0L Cannula 01/31 1330 97 Nasal 3.0L Cannula 01/31 1327 98.3 115 20 154/80 Intake & Output 02/01 1600 02/01 0400 01/31 1600 01/31 0400 01/30 1600 01/30 0400 Intake Total 200 350 480 400 360 120 Output Total 0 4000 Balance 200 350 480 400 -3640 120 Intake, IV 0 Intake, Oral 200 350 480 400 360 120 Number 0 1 1 Bowel Movements Output, 4000 Dialysate Output, Urine 0 Patient 164 lb 162 lb 161 lb Weight Weight Standing Scale Standing Scale Measurement Method Physical Exam: Gen - NAD HEENT - supple CV - RRR, no m/r/g Chest - clear anteriorly Abd - soft, nontender Ext - no edema Neuro - AOX3, grossly nonfocal Access - DHRUV AVF +bruit Current Medications: Current Medications Sig/Zoe Start time Last Medication Dose Route Stop Time Status Admin Acetaminophen 650 MG Q6 PRN 01/255 AC PO Albuterol Sulfate 3 ML EVERY 4 HRS/AWAKE 01/26 0800 AC 02/01 INH 0753 Albuterol Sulfate 3 ML Q4P PRN 01/250 AC INH Albuterol Sulfate 2 PUF DAILY 01/25 2121 AC 01/30 INH 1204 Aspirin Buffered 81 MG DAILY 01/25 2300 AC 01/31 PO 0912 Atorvastatin Calcium 40 MG 1700 01/26 1700 AC 01/31 PO 1803 Budesonide/ 2 PUF BID 01/25 2200 AC 01/31 Formoterol Fumarate INH 2159 Calcium Acetate 2,001 MG WM 01/26 1700 AC 01/31 PO 1802 Ciprofloxacin 500 MG DAILY 01/28 1122 DC 01/31 PO 02/01 1121 0912 Diltiazem HCl 30 MG BID 01/31 1106 AC 01/31 PO 2158 Docusate Sodium 100 MG BID 01/26 2200 AC 01/31 PO 2156 Epoetin Ryan 3,000 UNIT MoWeFr PRN 01/28 1000 AC 01/28 IV 1400 Epoetin Ryan 8,000 UNIT MoWeFr PRN 01/28 0945 AC 01/28 IV 1400 Glycerin 2 SPRAY Q2P PRN 01/28 1600 AC 01/28 PO 1740 Guaifenesin 600 MG Q12 PRN 01/29 2200 AC 01/30 PO 1502 Heparin Sodium 5,000 UNIT Q8 01/26 0100 AC 02/01 (Porcine) SC 0536 Metoprolol Tartrate 62.5 MG BID 01/28 1300 AC 01/31 PO 2158 Morphine Sulfate 0.5 MG Q8P PRN 01/25 2130 AC IV Multivitamins 1 TAB DAILY 01/25 2300 AC 01/31 PO 0912 Omeprazole 40 MG DAILY AC 01/26 0700 AC 01/31 PO 0612 Oxycodone HCl 5 MG Q6 PRN 01/25 211 AC 01/30 PO 1828 Paricalcitol 5 MCG MoWeFr PRN 01/28 1000 AC 01/28 IV 1254 Polyethylene Glycol 17 GM AT BEDTIME 01/25 2200 AC 01/27 PO 2126 Roflumilast 500 MCG DAILY 01/26 1000 AC 01/31 PO 0912 Senna/Docusate Sodium 1 TAB AT BEDTIME 01/25 2200 AC 01/29 PO 2105 Tiotropium [place] 1 PUF DAILY 01/26 1000 AC 01/31 INH 0911 Results Pertinent Lab Results: Laboratory Tests 02/01 01/31 0840 0627 Chemistry Sodium (137 - 145 mmol/L) 134 L Potassium (3.5 - 5.1 mmol/L) 4.4 Chloride (98 - 107 mmol/L) 95 L Carbon Dioxide (22 - 30 mmol/L) 27 Anion Gap (5 - 16) 12 BUN (9 - 20 mg/dL) 77 H Creatinine (0.7 - 1.2 mg/dL) 7.1 *H Estimated GFR (>60 ml/min) 8 L BUN/Creatinine Ratio (7 - 25 %) 10.8 Glucose (65 - 99 mg/dL) 138 H Phosphorus (2.5 - 4.5 mg/dL) 3.7 Albumin (3.5 - 5.0 g/dL) 3.1 L Hematology CBC w Diff NO MAN DIFF REQ NO MAN DIFF REQ WBC (4.8 - 10.8 /CUMM) 12.5 H 10.2 RBC (4.70 - 6.10 /CUMM) 3.95 L 3.99 L Hgb (14.0 - 18.0 G/DL) 10.5 L 10.8 L Hct (42 - 52 %) 34.1 L 34.9 L MCV (80.0 - 94.0 FL) 86.5 87.5 MCH (27.0 - 31.0 PG) 26.7 L 27.0 RDW (11.5 - 14.5 %) 17.8 H 17.9 H Plt Count (130 - 400 /CUMM) 164 162 MPV (7.4 - 10.4 FL) 10.0 10.0 Gran % (42.2 - 75.2 %) 82.6 H 76.4 H Lymphocytes % (20.5 - 51.1 %) 12.6 L 14.9 L Monocytes % (1.7 - 9.3 %) 3.9 8.1 Eosinophils % (0 - 5 %) 0.9 0.2 Basophils % (0.0 - 2.0 %) 0 L 0.4 Absolute Granulocytes (1.4 - 6.5 /CUMM) 10.4 H 7.8 H Absolute Lymphocytes (1.2 - 3.4 /CUMM) 1.6 1.5 Absolute Monocytes (0.10 - 0.60 /CUMM) 0.5 0.8 H Absolute Eosinophils (0.0 - 0.7 /CUMM) 0.1 0 Absolute Basophils (0.0 - 0.2 /CUMM) 0 0 PUBS MCHC (33.0 - 37.0 G/DL) 30.8 L 30.8 L Serology Hep Bs Antigen (NONREACTIVE) NONREACTIVE Hep Bs Antibody (NONREACTIVE) NONREACTIVE 01/30 01/30 01/30 0824 0730 0600 Chemistry Sodium (137 - 145 mmol/L) 135 L Cancelled Potassium (3.5 - 5.1 mmol/L) 4.9 Cancelled Chloride (98 - 107 mmol/L) 95 L Cancelled Carbon Dioxide (22 - 30 mmol/L) 27 Cancelled Anion Gap (5 - 16) 13 Cancelled BUN (9 - 20 mg/dL) 75 H Cancelled Creatinine (0.7 - 1.2 mg/dL) 6.8 *H Cancelled Estimated GFR (>60 ml/min) 8 L BUN/Creatinine Ratio (7 - 25 %) 11.0 Cancelled Glucose (65 - 99 mg/dL) 92 Phosphorus (2.5 - 4.5 mg/dL) 4.2 Albumin (3.5 - 5.0 g/dL) 3.2 L Hematology CBC w Diff Cancelled NO MAN DIFF REQ Cancelled WBC (4.8 - 10.8 /CUMM) Cancelled 11.9 H Cancelled RBC (4.70 - 6.10 /CUMM) Cancelled 3.89 L Cancelled Hgb (14.0 - 18.0 G/DL) Cancelled 10.3 L Cancelled Hct (42 - 52 %) Cancelled 33.4 L Cancelled MCV (80.0 - 94.0 FL) Cancelled 85.8 Cancelled MCH (27.0 - 31.0 PG) Cancelled 26.6 L Cancelled RDW (11.5 - 14.5 %) Cancelled 17.6 H Cancelled Plt Count (130 - 400 /CUMM) Cancelled 190 Cancelled MPV (7.4 - 10.4 FL) Cancelled 10.5 H Cancelled Gran % (42.2 - 75.2 %) 79.7 H Lymphocytes % (20.5 - 51.1 %) 12.4 L Monocytes % (1.7 - 9.3 %) 7.4 Eosinophils % (0 - 5 %) 0.2 Basophils % (0.0 - 2.0 %) 0.3 Absolute Granulocytes (1.4 - 6.5 /CUMM) 9.5 H Absolute Lymphocytes (1.2 - 3.4 /CUMM) 1.5 Absolute Monocytes (0.10 - 0.60 /CUMM) 0.9 H Absolute Eosinophils (0.0 - 0.7 /CUMM) 0 Absolute Basophils (0.0 - 0.2 /CUMM) 0 PUBS MCHC (33.0 - 37.0 G/DL) Cancelled 31.0 L Cancelled Imaging/Other Studies: None new
[2017-02-01] MEDS ORDERED: METOPROLOL TART50 M1 PO (11:37)
[2017-02-01] MEDS ORDERED: PREDNISONE10 M2 PO (11:37)
[2017-02-01] MEDS ORDERED: CIPRO500 M1 PO (11:49)
[2017-02-01 13:08] VITALS: BP 136/66
--- NOTE | 2017-02-01 13:18 | PN- Cardiology ---
Subjective Subjective: The patient continues to do better. He is currently on dialysis. He claims he is feeling well with improved respiratory status. Cardiac status stable. Objective Vital Signs and I&Os Vital Signs Date Time Temp Pulse Resp B/P B/P Pulse O2 O2 Flow FiO2 Mean Ox Delivery Rate 02/01 1308 101 136/66 / 1306 101 136/66 02/01 0828 98.5 101 19 177/78 94 Nasal 3.0L Cannula 02/01 0000 Room Air 01/31 2217 96.7 85 16 130/66 92 CPAP 01/31 2158 86 130/66 01/31 2158 86 130/66 01/31 1740 97 Nasal 3.0L Cannula 01/31 1600 95 Nasal 3.0L Cannula 01/31 1530 96.2 98 16 128/78 94 Nasal 3.0L Cannula 01/31 1330 97 Nasal 3.0L Cannula 01/31 1327 98.3 115 20 154/80 Intake & Output 02/01 1600 02/01 0800 02/01 0000 01/31 1600 01/31 0800 01/31 0000 Intake Total 200 350 480 400 Output Total 0 Balance 200 350 480 400 Intake, IV 0 Intake, Oral 200 350 480 400 Number 0 1 1 Bowel Movements Output, Urine 0 Patient 158 lb 164 lb 162 lb Weight Weight Standing Scale Measurement Method Current Medications: Current Medications Sig/Zoe Start time Last Medication Dose Route Stop Time Status Admin Acetaminophen 650 MG Q6 PRN 01/25 2115 AC PO Albuterol Sulfate 3 ML EVERY 4 HRS/AWAKE 01/26 0800 AC 02/01 INH 0753 Albuterol Sulfate 3 ML Q4P PRN 01/25 2130 AC INH Albuterol Sulfate 2 PUF DAILY 01/25 2121 AC 01/30 INH 1204 Aspirin Buffered 81 MG DAILY 01/25 2300 AC 02/01 PO 1307 Atorvastatin Calcium 40 MG 1700 01/26 1700 AC 01/31 PO 1803 Budesonide/ 2 PUF BID 01/25 2200 AC 02/01 Formoterol Fumarate INH 1307 Calcium Acetate 2,001 MG WM 01/26 1700 AC 02/01 PO 1305 Ciprofloxacin 500 MG DAILY 01/28 1122 DC 02/01 PO 02/01 1121 1306 Diltiazem HCl 30 MG BID 01/31 1106 AC 02/01 PO 1306 Docusate Sodium 100 MG BID 01/26 2200 AC 02/01 PO 1307 Epoetin [place] 3,000 UNIT MoWeFr PRN 01/28 1000 AC 01/28 IV 1400 Epoetin [place] 8,000 UNIT MoWeFr PRN 01/28 0945 AC 01/28 IV 1400 Glycerin 2 SPRAY Q2P PRN 01/28 1600 AC 01/28 PO 1740 Guaifenesin 600 MG Q12 PRN 01/29 2200 AC 01/30 PO 1502 Heparin Sodium 5,000 UNIT Q8 01/26 0100 AC 02/01 (Porcine) SC 1307 Metoprolol Tartrate 62.5 MG BID 01/28 1300 AC 02/01 PO 1308 Morphine Sulfate 0.5 MG Q8P PRN 01/25 2130 AC IV Multivitamins 1 TAB DAILY 01/25 2300 AC 02/01 PO 1307 Omeprazole 40 MG DAILY AC 01/26 0700 AC 01/31 PO 0612 Oxycodone HCl 5 MG Q6 PRN 01/25 2115 AC 02/01 PO 1312 Paricalcitol 5 MCG MoWeFr PRN 01/28 1000 AC 01/28 IV 1254 Polyethylene Glycol 17 GM AT BEDTIME 01/25 220 AC 01/27 PO 2127 Roflumilast 500 MCG DAILY 01/26 1000 AC 02/01 PO 1306 Senna/Docusate Sodium 1 TAB AT BEDTIME 01/25 2200 AC 01/29 PO 2105 Tiotropium [place] 1 PUF DAILY 01/26 1000 AC 02/01 INH 1307 Results Last 48 Hrs of Labs/Mics: Laboratory Tests 02/01/17 0840: Anion Gap 12, Estimated GFR 8 L, BUN/Creatinine Ratio 10.8, Glucose 138 H, Phosphorus 3.7, Albumin 3.1 L, CBC w Diff NO MAN DIFF REQ, RBC 3.95 L, MCV 86.5, MCH 26.7 L, RDW 17.8 H, MPV 10.0, Gran % 82.6 H, Lymphocytes % 12.6 L, Monocytes % 3.9, Eosinophils % 0.9, Basophils % 0 L, Absolute Granulocytes 10.4 H, Absolute Lymphocytes 1.6, Absolute Monocytes 0.5, Absolute Eosinophils 0.1, Absolute Basophils 0, PUBS MCHC 30.8 L, Hep Bs Antigen NONREACTIVE, Hep Bs Antibody NONREACTIVE 01/31/17 0627: CBC w Diff NO MAN DIFF REQ, RBC 3.99 L, MCV 87.5, MCH 27.0, RDW 17.9 H, MPV 10.0, Gran % 76.4 H, Lymphocytes % 14.9 L, Monocytes % 8.1, Eosinophils % 0.2, Basophils % 0.4, Absolute Granulocytes 7.8 H, Absolute Lymphocytes 1.5, Absolute Monocytes 0.8 H, Absolute Eosinophils 0, Absolute Basophils 0, PUBS MCHC 30.8 L Assessment/Plan Assessment/Plan Assessment: 1. Probable right lower lobe pneumonia 2. Atrial for ablation with initially elevated rate, now rate controlled 3. History of coronary disease 4. Hypertension 5. End-stage renal disease on hemodialysis Recommendations: -For now, since the patient's rate appears to be controlled, I would continue his current medication doses for now. -Serial troponins negative -Nephrology input noted -Continue as per the internal medicine and pulmonary teams -Continue regular medications for now -Further discussions about the role of long-term anticoagulation to be addressed. For now, in view of the patient's upcoming colonoscopy, etc. I would not anticoagulate at the moment. -The patient is pending possible discharge. The patient is scheduled to see me in the office in the office in 2 weeks. Continue telemetry? No
--- NOTE | 2017-02-01 14:59 | Event Note ---
Event Note Event Note: Pt medical disposition was to go to pulmonary rehab. Day of discharge, he was admant that he wants to go home and not at rehab. Pt was informed of the risk of going home instead of rehab. The medical team and spring encaser had an extensive discussion persuading the patient to go to rehab. All the risks associated with patients impeding decision were discussed. Pt ended up signing and leaving AMA. Attending was present.
== END 2017-02-01 15:25 | DRG 190 ==
LOC: ERH 15:37 → ERHI 18:04 → 1NO 18:04 → ENRESERV 19:05 → ENTRNSPT 19:54 → 1NO 20:15 → CMPTRNSPT 20:26 → 1NO 01-26 07:03 → ERHI 01-26 13:19 → 1NO 01-26 16:27 → ENPENDDIS 02-01 11:44 → 1NO 02-01 15:25
PROVIDERS: Internal Medicine Nephrology; Physician Assistant; Student in an Organized Health Care Education/Training Program; ADMIT Internal Medicine
PROC: 5A1D60Z (ICD-10-PCS; principal; 2017-01-28)
DX: J44.0 Chronic obstructive pulmonary disease with (acute) lower respiratory infection (principal); J15.1 Pneumonia due to Pseudomonas; J96.21 Acute and chronic respiratory failure with hypoxia; I13.2 Hypertensive heart and chronic kidney disease with heart failure and with stage 5 chronic kidney disease, or end stage renal disease; I27.2 Other secondary pulmonary hypertension; N18.6 End stage renal disease; I71.2 Thoracic aortic aneurysm, without rupture; I50.9 Heart failure, unspecified; Z99.81 Dependence on supplemental oxygen; I48.91 Unspecified atrial fibrillation; D63.1 Anemia in chronic kidney disease; G47.33 Obstructive sleep apnea (adult) (pediatric); I25.10 Atherosclerotic heart disease of native coronary artery without angina pectoris; D46.9 Myelodysplastic syndrome, unspecified; R59.0 Localized enlarged lymph nodes; Z99.2 Dependence on renal dialysis; J44.1 Chronic obstructive pulmonary disease with (acute) exacerbation; K21.9 Gastro-esophageal reflux disease without esophagitis
CPT/HCPCS: 1NSP; 36415; 82436; 87040; 87070; 87071; 87086; 93005; 93010; 96374; 96375; 97110-GO; 97116-GO; 97161-GP; 97530-GO; 99291; J0456; J0696; J0713; J0885; J1644; J2501; J2920; J2930; J3490; J7040; J7512

== ENCOUNTER → 2018-02-12 | Day surgery (SDC) | payer OTHER ==
[~2018-02-12] VITALS: Ht 165.1 cm; Wt 81.6 kg
[~2018-02-12] MED LIST changes: +AZITHROMYCIN250 M1 PO; +CARDIZEM30 M1 PO; +LOPRESSOR50 M1 PO; +PROCRIT3000 UNIT/ IV; +ZEMPLAR5 MCG/1 ML IV
[2018-02-12 11:52] LABS: ABSOLUTE BASOPHIL COUNT 0.1 /CUMM (0.0-0.2); ABSOLUTE EOSINOPHIL COUNT 0.4 /CUMM (0.0-0.7); ABSOLUTE GRANULOCYTE CT 4.9 /CUMM (1.4-6.5); ABSOLUTE LYMPH COUNT 1.7 /CUMM (1.2-3.4); ABSOLUTE MONOCYTE COUNT 0.5 /CUMM (0.10-0.60); EOSINOPHIL % 5.5 % (0-5); HEMATOCRIT 35.6 % (42-52); MEAN CORPUSCULAR HGB 30.5 PG (27.0-31.0); MEAN CORPUSCULAR VOLUME 92.5 FL (80.0-94.0); MEAN PLATELET VOLUME 11.2 FL (7.4-10.4); PLATELET COUNT 144 /CUMM (130-400); RBC DISTRIBUTION WIDTH 14.6 % (11.5-14.5); RED BLOOD CELL CT 3.85 /CUMM (4.70-6.10); WHITE BLOOD CELL COUNT 7.6 /CUMM (4.8-10.8)
--- NOTE | 2018-02-12 15:22 | Operative Report ---
Operative/Inv Procedure Report Surgery Date: 02/12/18 Name of Procedure: Revision of left arm AV fistula with repair of left arm pseudoaneurysm Pre-Operative Diagnosis: End stage renal disease with complications of AV fistula Post-Operative Diagnosis: same Estimated Blood Loss: 250 cc Surgeon/Cloth Piecer: Mitul Merritt MD Anesthesia: local monitored anesthesi Specimens: Pseudoaneurysm cavity and thrombus sent to pathology Complications: None Condition: Stable to PACU Operative Indication: 72-year-old male with a history of end-stage renal disease requiring hemodialysis. He has had issues that hemodialysis including recent areas of erosive skin noted. These have subsequently healed. However there is concern that the pseudoaneurysm cavity is too close to the skin in may result in rupture. Pseudoaneurysm resection and repair of AV fistula via revision is indicated. Risks benefits and alternatives were explained to the patient including bleeding infection pain scar limb loss and . Operative/Procedure Note Note: Patient brought to the operating room and laid supine. After administration of anesthesia timeout was held accordance with [facility] policy. 15 cc of local anesthetic was infiltrated around the left arm AV fistula pseudoaneurysm site. Attention was turned to resection. A 15 blade and Bovie electrocautery used to gain proximal control of the fistula. This was vessel looped and the patient was bolused with 4000 units of heparin. The proximal portion of the fistula was clamped. The pseudoaneurysm cavity was then entered. There was some bleeding noted and a 5 Janell balloon was placed into the venous outflow tract to assist in hemostasis. Once this was completed attention was turned to resection of the pseudoaneurysm. The pseudoaneurysm cavity was resected back to viable tissue. This area was then closed with a running 5-0 Prolene suture. Clamps were then removed and the AV fistula was flushed. A good thrill was noted. Hemostasis was achieved with manual compression and Gelfoam and thrombin. Of note the patient was labile during the procedure which is likely related to poor volume status related to his recent hemodialysis. Required resuscitation keep his blood pressure elevated as well as pressor support. Most of this had been weaned significantly by the completion of the procedure. The wound was then irrigated and closed in layers. A running Monocryl suture was used to close the skin. The patient will be observed in the PACU prior to discharge. Additional Comments: Of note the patient was labile during the procedure which is likely related to poor volume status related to his recent hemodialysis. Required resuscitation keep his blood pressure elevated as well as pressor support. Most of this had been weaned significantly by the completion of the procedure. CC: Anne Recio MD
== END ==
LOC: STS 02:43 → EDSTATUS 07:00
PROVIDERS: Surgery Vascular Surgery
DX: T82.898A Other specified complication of vascular prosthetic devices, implants and grafts, initial encounter (principal); N18.6 End stage renal disease; I12.9 Hypertensive chronic kidney disease with stage 1 through stage 4 chronic kidney disease, or unspecified chronic kidney disease; Z99.2 Dependence on renal dialysis; J44.9 Chronic obstructive pulmonary disease, unspecified; Z87.891 Personal history of nicotine dependence; Z99.81 Dependence on supplemental oxygen; R09.89 Other specified symptoms and signs involving the circulatory and respiratory systems
CPT/HCPCS: 36415; 86920; J1644; J2001; J2250; J2720